=== PATIENT | female | born 1990 | race Caucasian/White ===

== ENCOUNTER 2025-01-11 19:31 | Inpatient (IN) | payer OTHER, SELFPAY ==
[2025-01-11 19:33] VITALS: BP 118/74; PULSE 102; RESP 15; TEMP 36.2; O2SAT 98
[2025-01-11 20:49] LABS: Absolute Lymphocyte Count 2.97 X10^3/uL (0.83-4.51); Absolute Neutrophil Count 5.1 X10^3/uL (2.0-7.7); Basophil# 0.03 X10^3/uL; Basophil% 0.3 % (0-1); Eosinophil# 0.44 X10^3/uL; Eosinophils% 4.8 % (0-5); Hematocrit 27.1 % (37-47); Hemoglobin 8.5 g/dL (12.0-15.0); Lymphocyte # 2.97 X10^3/ul (0.83-4.51); Lymphocyte % 32.6 % (19-41); Mean Corp Hgb Conc 31.4 g/dL (32-36); Mean Corpuscular Hgb 27.9 pg (27.0-32.0); Mean Corpuscular Volume 88.9 fL (81-99); Mean Platelet Vol. 7.7 fl (6.2-12.0); Monocyte# 0.46 X10^3/uL; NRBC Flagged by Analyzer 0 % (0-5); Neutrophil # 5.11 X10^3/uL (2.7-7.7); Neutrophil % 56.2 % (47-70); Platelet Count 475 K/mm3 (150-450); Red Blood Count 3.05 M/mm3 (4.2-5.4); White Blood Count 9.1 K/mm3 (4.4-11.0)
--- NOTE | 2025-01-11 21:05 | EX.ED.DYSGE1 ---
HPI History of Present Illness Chief Complaint: Abn Labs Narrative Narrative: 34-year-old female, G4, P2 at approximately 29 weeks gestation presents with abnormal labs. She has history of Crohn disease and takes Humira. She has an [employer] in [place] and plans on delivering at [facility]. She presents the direction of the gastroenterology CHARLIE who evaluated her today. Patient's states that with her Crohn disease, the [employer] recommended a bottle tester closer than the one they usually see at [facility]. Patient relates history that she has had bloody stool and cramping with bowel movements for the last few weeks. She was seen by gastroenterology today and was noted to have a hemoglobin of 8.6 with CRP of 103. Alk phos is elevated to 84 and it was recommended that she be admitted to the hospital for Solu-Medrol 125 mg every 8 hours. Patient denies any vaginal bleeding or cramping. She and her also relate history that it was suggested that with her Crohn disease and that she is on Humira that she be evaluated by highway worker. They had an appointment with someone at [facility] who advised them that there is no need for her to deliver at [place] and that she has not high risk and that she could deliver in [place]. She presents today for admission for IV steroids and control of her Crohn's flare. [facility] Medical History delivery delivered Abscess Blood transfusion, without reported diagnosis Home Medications ?Medication ?Instructions ?Recorded ?Last Taken ?Type adalimumab 40 mg/0.4 mL 40 mg subcut Q2W 01/11/25 Unknown History subcutaneous syringe kit (Humira(CF)) [id number] 18 mg-folic tab PO 01/11/25 Unknown History 400 mcg-vit K1 120 mcg-herbal tablet Allergy/AdvReac Type Severity Reaction Status Date / Time mesalamine AdvReac Intermediate Diarrhea Verified 01/11/25 14:15 Family History no significant family his Social History household members: spouse and children Smoking Status: Never smoker alcohol intake: never substance use type: does not use hubert/evangelical: Mennonite ROS ROS ED ROS Narrative Review of systems positive for blood in stool for a few weeks. Abdominal cramping only when having a bowel movement. No vaginal bleeding, no pelvic pain or vaginal cramping. No fevers or chills, no nausea or vomiting. EXAM Physical Exam Narrative Exam Narrative: Afebrile. Vital signs noted. Nontoxic-appearing. Mild tachycardia 102 bpm. Lungs clear to auscultation bilaterally. Abdomen is soft and nontender with gravid uterus. No pedal edema. Neurological examination nonfocal and normal lysing. Const Vital Signs: 01/11/25 19:33 01/11/25 20:18 01/11/25 21:32 Temperature 97.2 F L Temperature Source Temporal Pulse Rate 102 H Respiratory Rate 15 Respiratory Effort Normal Non-Labored Respiratory Pattern Normal Blood Pressure 118/74 113/77 Blood Pressure Mean 88 89 Pulse Ox 98 Oxygen Delivery Method Room Air MDM MDM MDM Narrative Medical decision making narrative: Differential diagnosis includes but not limited to Crohn's flare versus GI bleeding from AV malformation. I have low suspicion for diverticulitis based on her history and physical. I reviewed the gastroenterology note from today. I also reviewed the laboratory work from today as well. Today in review of her laboratory work she has a white count of 9.1, hemoglobin 8.5 down slightly from 8.6 this afternoon, platelet count elevated at 475. Electrolyte panel is significant for glucose of 119 with alk phos elevated at 271, lipase normal at 20. I reviewed her CRP and it is elevated at 203. She was administered Solu-Medrol 125 mg intravenously. heart rate 140 and obtained by RN. I discussed patient with Dr. Wheeler with [employer]. She will admit the patient as long as there is GI able to follow this weekend. As the patient is established with gastroenterology here as she was seen today and sent in by the nurse practitioner, I discussed patient with Dr. Galdamez who states that he will be able to see the patient tomorrow for consultation. He did not want any other medications added to treat her Crohn disease versus ulcerative colitis. I rediscussed the patient with Dr. Wheeler for admission to labor and delivery for monitoring. Disposition is admit in stable condition. History & Record Review Discussion w/independent historian: Patient and Family Additional record(s) reviewed:: Prior labs Lab Data Attestation: I reviewed the patient's lab results. Labs: Laboratory Results - last 24 hr 01/11/25 20:15 WBC 9.1 RBC 3.05 L Hgb 8.5 L Hct 27.1 L MCV 88.9 MCH 27.9 MCHC 31.4 L RDW Std Deviation 48.0 H RDW Coeff of Shira 15.0 H Plt Count 475 H MPV 7.7 Immature Gran % (Auto) 1.100 H Neut % (Auto) 56.2 Lymph % (Auto) 32.6 [place] % (Auto) 5.0 Eos % (Auto) 4.8 Baso % (Auto) 0.3 Absolute Neuts (auto) 5.1 Absolute Lymphs (auto) 2.97 Nucleated RBC % 0 Sodium 136 Potassium 3.7 Chloride 100 Carbon Dioxide 22.9 Anion Gap 13 BUN 6 Creatinine 0.49 L Est GFR (MDRD) Non-Af 127 BUN/Creatinine Ratio 12.2 Glucose 119 H Calcium 8.9 Total Bilirubin 0.44 AST 29 ALT 22 Alkaline Phosphatase 271 H Total Protein 8.2 Albumin 2.7 L Globulin 5.5 H Albumin/Globulin Ratio 0.5 L Lipase 20 Management Discussion w/another healthcare provider: Check Writing Machine Operator (Dr. Wheeler, [employer] and Dr. Galdamez, gastroenterology.) Discharge Plan Dx/Rx/DC Orders Clinical Impression: 29 weeks gestation of , Crohn's disease, and not yet delivered, Anemia Disposition Disposition: Acute Care [facility]
[2025-01-11 21:09] LABS: ALB/GLOB Ratio 0.5 RATIO (0.9-2.4); AST(SGOT) 29 U/L (<=31); Alanine Aminotransfer ALT/SGPT 22 U/L (<=34); Albumin, Serum 2.7 g/dL (3.5-5.0); Alkaline Phosphatase 271 U/L (35-104); Anion Gap 13 (5-15); BUN 6 mg/dL (4-19); BUN/Creat Ratio 12.2 RATIO (10-20); Calcium,Total 8.9 mg/dL (7.6-11.0); Carbon Dioxide 22.9 mmol/L (21.0-32.0); Chloride 100 mmol/L (98-108); Creatinine, Serum 0.49 mg/dL (0.70-1.20); EST Glomerular Filtration Rate 127 (>60); Globulin 5.5 g/dL (2.2-4.2); Glucose 119 mg/dL (70-99); Lipase 20 U/L (13-75); Potassium 3.7 mmol/L (3.3-5.1); Protein, Total 8.2 g/dL (5.9-8.4); Sodium Level 136 mmol/L (133-145); Total Bilirubin 0.44 mg/dL (0.00-1.30)
[2025-01-11] MEDS: MethylPREDNISolone 125 MG/2 ML Vial IV (21:16)
--- NOTE | 2025-01-11 21:27 | ED.RN ---
Obtained heart tones of 140/minute
[2025-01-11 21:32] VITALS: BP 113/77
[2025-01-11 22:39] VITALS: BP 113/77; PULSE 77; RESP 16; TEMP 36.2; O2SAT 98
[2025-01-11 22:54] VITALS: BP 121/68; PULSE 78; RESP 14; TEMP 36.9; O2SAT 96
[2025-01-12] VITALS (84 sets, daily range): BP systolic 105–140; BP diastolic 52–82; PULSE 72–108; RESP 14–17; TEMP 36.4–37.1; O2SAT 94–98
[2025-01-12] MEDS: MethylPREDNISolone 125 MG/2 ML Vial IV ×3 (05:32→21:41)
--- NOTE | 2025-01-12 09:37 | PCM.HP.OB ---
HPI - General HPI Narrative FABRICIO HERNANDES, is a 34 y/o @ 29 weeks who presented to [facility] ER for an acute GI bleed secondary to Crohn's disease flair. She saw Yoanna Tejeda CNP in Dr. Fong's office. The patient denies loss of fluid, vaginal bleeding, or decreased movement. She was started on solumendrol 125 mg IV q 8 hrs by her and she states that since the first infusion her symptoms have started to clear up. She states that her bowel movements are not as bloody and her vasculitis cleared up. She just recently found out that she passed her glucola test and that her thyroid test was normal. She denies shortness of breath or chest pain. The information from her office visit yesterday with Yoanna Tejeda is as follows: - initial diagnosis was UC post colonoscopy at [place] August 2023 with diarrhea, mucus, bleeding - started on Mesalamine labs at that time revealed a CRP of 18.74 and ESR labs at that time revealed a CRP of 18.74 and ESR 95 she was also anemic with a hemoglobin of 9.7. Imaging and a colonoscopy revealed mild pancolitis confirmed by bowel biopsy to be chronic active colitis with varying degrees of severity throughout the colon. She was treated with prednisone and mesalamine which initially alleviated her symptoms but her condition worsen when the prednisone was tapered. 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 A positive C. difficile test led to treatment with p.o. vancomycin however she was toxin negative. In February 2024 had a perineal necrotizing soft tissue infection and per the op note this was actually an anal fistula or abscess which gave concern that her IBD was actually Crohn's and not an ulcerative colitis. - abscess and put in 3 drains - drains came out end of March, 1 of 3 abscess healed - crohn's diagnosed about 18 months ago - she is experiencing rectal bleeding that began a few weeks ago During an outpatient GI visit February 2024 patient had reported resolution of symptoms and was not having any diarrhea or rectal bleeding. She was not on any steroids at that time. CRP was normal at 0.58 but her fecal calprotectin was elevated to 974. Her CBC also showed microcytic hyperchromic anemia consistent with ADRIEL with a hemoglobin of 6.1 and received a transfusion. She had a colonoscopy performed April 2024 which showed inflammation in the entire colon worst in the rectosigmoid, along with involvement of the terminal ileum. Biopsies showed chronic active enteritis in the TI and active chronic colitis in all segments of the colon. During outpatient GI visit 05/24/2024 she was having bloody diarrhea along with urgency and started on 2-month prednisone taper taper (starting at 40 mg) with improvement of symptoms and decision was made to start Humira. She is currently getting it through patient assistance program from the [employer] as she has community insurance through the [employer] and due to several delays in initiating biologic therapy she was off of prednisone for 1 month before receiving her first induction dose of Humira on 08/30/2024 - started Humira August 2024 - she saw Dr. Mann during admission September 2024 She was admitted to [facility] on 09/27/2024 4 para 2 at 14 weeks gestation with a Crohn's flare presenting with nausea, vomiting and hematochezia. C. difficile and stool pathogen panels were unremarkable GI was consulted she received IV methylprednisone 20 mg every 8 hours 09/27 through 09/30 and transition to p.o. prednisone steroid taper on 10/01/2024. Throughout admission, patient's hematochezia and diarrheal symptoms greatly improved. On 09/28/2024 an OB ultrasound was performed which confirmed stable she was discharged home on an oral steroid taper with plans to resume Humira every 2 weeks. Her prednisone taper started at 40 mg daily for 1 week and then decrease by 5 mg every week. Her reports her Humira level during admission was around 6. Without antibodies. Completing prednisone taper early November. She presents today with complaints of bloody stools, loss of appetite, 20 pound weight loss, intermittent emesis with an overall improvement in diarrhea. 5 - she is now having blood in stool, loss of appetite - weight loss - diarrhea - emesis - weight is down 20lbs since beginning of - since starting Humira she has noted improvement in diarrhea - since starting Humira she reports having a gush of mucus, followed by stool - states bleeding now for a few weeks - reports having labs 1-2 weeks ago - HGB 8.6, was taking Ferrous sulfate 65mg QOD and now she is now taking Herbal Fe 325mg 1 BID and is supposed to be taking 2 BID - now only going 2-3x during the day and once at HS, this is an improvement from multiple stools daily before starting Humira - reports she was last on prednisone September - sore in mouth and throat, diarrhea, vomiting - states this flare was different and felt worse than she does now - she i snow seeing a high risk clinic at [place] - and vitamin C - 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 possibly secondary to - seen in the office today with her - states their doctor told them it was okay for her to get on prednisone - brother business berry picker, 2x a day - leave a [phone] - Community phone patient to call with this number [facility] Medical History delivery delivered Abscess Blood transfusion, without reported diagnosis Home Medications ?Medication ?Instructions ?Recorded ?Last Taken ?Type adalimumab 40 mg/0.4 mL 40 mg subcut Q2W 01/11/25 01/08/25 History subcutaneous syringe kit (Humira(CF)) [id number] 18 mg-folic 1 tab PO DAILY 01/11/25 Unknown History 400 mcg-vit K1 120 mcg-herbal tablet Allergy/AdvReac Type Severity Reaction Status Date / Time mesalamine AdvReac Intermediate Diarrhea Verified 01/11/25 14:15 Family History no significant family his Social History household members: spouse and children Smoking Status: Never smoker alcohol intake: never substance use type: does not use hubert/yarsanism: Mennonite NST FHR Rate Baby A Baseline: 140 Variability:: Moderate Accelerations:: 15 x 15 Decelerations:: None NST Reactive:: Yes FHR Category:: Category I Uterine Activity:: no contractions ROS Constitutional Constitutional: Denies change in weight, fatigue, fever(s), headache(s), poor appetite or weakness Eyes Eyes: Denies blurry vision, change in vision, seeing flashes or spots in vision ENT HEENT: Denies dizziness, headache(s), loss taste/smell or sore throat Cardiovascular Cardiovascular: Denies chest pain, dizziness, dyspnea, irregular heart rhythm, leg edema, palpitations, rapid heart rate or vomiting Respiratory/Chest Respiratory/Chest: Denies chest tightness, cough, dyspnea or breast pain Gastrointestinal Gastrointestinal: Denies abdominal pain, anorexia, constipation, cramping, diarrhea, hemorrhoids, vomiting or weight changes Genitourinary Genitourinary: Denies dysuria, flank pain, genital lesions, genital pain, urinary frequency or urinary urgency Musculoskeletal Musculoskeletal: Denies back pain, difficulty walking, joint pain, limited range of motion, muscle cramps or numbness Integumentary Integumentary: Denies lesions or unusual bruising Neurologic Neurologic: Denies abnormal movements, abnormal speech, dizziness, numbness, seizure-like activity or syncope Psychiatric Psychiatric: Denies anxiety, behavioral changes, change in appetite, change in libido, cognitive impairment, confusion, depression, difficulty concentrating, hallucinations or suicidal thoughts Endocrine Endocrinology: Denies excessive sweating, polydipsia or polyuria Hematologic/Lymphatic Hematologic/Lymphatic: Denies easy bleeding, easy bruising or lymphadenopathy Allergic/Immunologic Allergic/Immunologic: Denies itchy eyes, lip swelling, seasonal rhinorrhea, rhinitis, throat swelling, tongue swelling, eczemia, wheezing or asthma Vital Signs Vital Signs Vital Signs: 01/11/25 19:33 01/11/25 20:18 01/11/25 21:32 Temperature 97.2 F L Temperature Source Temporal Pulse Rate 102 H Respiratory Rate 15 Respiratory Effort Normal Non-Labored Respiratory Pattern Normal Blood Pressure 118/74 113/77 Blood Pressure Mean 88 89 BP Systolic BP Diastolic Pulse Ox 98 Oxygen Delivery Method Room Air 01/11/25 22:39 01/11/25 22:54 01/11/25 22:54 Temperature 97.2 F L Temperature Source Temporal Pulse Rate 77 Respiratory Rate 16 Respiratory Effort Respiratory Pattern Blood Pressure 113/77 121/68 H Blood Pressure Mean 89 BP Systolic 121 BP Diastolic 68 Pulse Ox 98 Oxygen Delivery Method 01/11/25 22:54 01/11/25 22:54 01/11/25 22:54 Temperature Temperature Source Pulse Rate 78 Respiratory Rate 14 Respiratory Effort Respiratory Pattern Blood Pressure Blood Pressure Mean BP Systolic BP Diastolic Pulse Ox 96 Oxygen Delivery Method 01/11/25 22:54 01/12/25 03:06 01/12/25 03:06 Temperature 98.4 F Temperature Source Pulse Rate 78 Respiratory Rate Respiratory Effort Respiratory Pattern Blood Pressure 115/62 Blood Pressure Mean BP Systolic 115 BP Diastolic 62 Pulse Ox Oxygen Delivery Method 01/12/25 03:06 01/12/25 07:48 01/12/25 07:48 Temperature Temperature Source Pulse Rate 78 Respiratory Rate 14 Respiratory Effort Respiratory Pattern Blood Pressure 117/68 Blood Pressure Mean BP Systolic 117 BP Diastolic 68 Pulse Ox Oxygen Delivery Method 01/12/25 07:48 01/12/25 07:49 01/12/25 07:49 Temperature Temperature Source Oral Pulse Rate Respiratory Rate 16 Respiratory Effort Respiratory Pattern Blood Pressure Blood Pressure Mean BP Systolic BP Diastolic Pulse Ox 96 Oxygen Delivery Method 01/12/25 07:49 Temperature 97.6 F L Temperature Source Pulse Rate Respiratory Rate Respiratory Effort Respiratory Pattern Blood Pressure Blood Pressure Mean BP Systolic BP Diastolic Pulse Ox Oxygen Delivery Method Physical Exam Const alert, oriented x3, no apparent distress and healthy appearing General Appearance: cooperative; Negative for anxious HEENT normocephalic Face and Sinus: normal facial exam Eyes EOMs intact bilaterally and no scleral icterus General Eye: normal appearance of both eyes Neck full ROM and supple Lymph Lymphatic: no lymphadenopathy noted Chest Chest: abnormal inspection of the chest Resp normal respiratory effort Effort and Inspection: able to speak in complete sentences Cardio regular rate GI soft to palpation and non-tender Inspection: gravid Palpation: soft; Negative for tender Back/Spine no CVA tenderness Extremity normal to inspection, full ROM and no clubbing, cyanosis or edema General Extremity: Negative for calf tenderness or edema Skin Lesions: no lesions Rashes: no rashes Psych mental status grossly normal Labs Labs Labs: Hct 27.1 % (37-47) L Hgb 8.5 g/dL (12.0-15.0) L Assessment & Plan (1) Acute GI bleeding: (2) 29 weeks gestation of : (3) Anemia: (4) and not yet delivered: (5) Crohn's disease: (6) Vasculitis: PLAN: Plan plan this am after talking with Dr. fong is to order a CMP, ESR, Retic count, Ferritin, Iron, LDH, Transferrin, amylase, and lipase. I will also be ordering a type and cross and transfusing 1 unit due to tachycardia in the ER with standing and drop in bp. -ok to order regular diet -repeat cbc after transfusion and if stable will consider transfer to the med surg floor with q shift NSTs. For now will keep on montor Charges/Coding Visit Charges Inpatient E&M: 07252 Init Hosp L3
[2025-01-12 10:38] LABS: Absolute Lymphocyte Count 1.92 X10^3/uL (0.83-4.51); Absolute Neutrophil Count 6.9 X10^3/uL (2.0-7.7); Basophil# 0.01 X10^3/uL; Basophil% 0.1 % (0-1); Hematocrit 27.1 % (37-47); Hemoglobin 8.4 g/dL (12.0-15.0); Lymphocyte # 1.92 X10^3/ul (0.83-4.51); Lymphocyte % 21.5 % (19-41); Mean Corpuscular Hgb 27.5 pg (27.0-32.0); Mean Corpuscular Volume 88.9 fL (81-99); Monocyte# 0.05 X10^3/uL; Monocyte% 0.6 % (0-10); NRBC Flagged by Analyzer 0 % (0-5); Neutrophil # 6.85 X10^3/uL (2.7-7.7); Neutrophil % 76.5 % (47-70); Platelet Count 399 K/mm3 (150-450); RBC Distribution Width CV 14.8 % (11.6-14.6); RBC Distribution Width SD 47.1 fl (35.1-43.9); RET-HE 30.1 pg (30-35); Red Blood Count 3.05 M/mm3 (4.2-5.4); Reticulocyte Count 2.48 % (0.5-1.5)
[2025-01-12 11:23] LABS: Erythrocyte Sedimentation Rate 44 mm/hr (0-30)
[2025-01-12 11:43] LABS: ALB/GLOB Ratio 0.5 RATIO (0.9-2.4); AST(SGOT) 20 U/L (<=31); Alanine Aminotransfer ALT/SGPT 19 U/L (<=34); Albumin, Serum 2.7 g/dL (3.5-5.0); Alkaline Phosphatase 259 U/L (35-104); Anion Gap 13 (5-15); BUN 5 mg/dL (4-19); Carbon Dioxide 21.4 mmol/L (21.0-32.0); Chloride 99 mmol/L (98-108); Creatinine, Serum 0.42 mg/dL (0.70-1.20); EST Glomerular Filtration Rate 133 (>60); Ferritin 178 ng/mL (22-378); Globulin 5.4 g/dL (2.2-4.2); Glucose 123 mg/dL (70-99); Iron Binding Capacity,Total 337 ug/dL (250-450); Potassium 4.1 mmol/L (3.3-5.1); Protein, Total 8.1 g/dL (5.9-8.4); Sodium Level 133 mmol/L (133-145); Total Bilirubin 0.33 mg/dL (0.00-1.30)
[2025-01-12 12:00] LABS: Amylase 18 U/L (28-100); Iron 54 ug/dL (50-170); Iron Binding Capacity,Unsat 283 ug/dL (228-428); Lipase 16 U/L (13-75)
[2025-01-12] MEDS: DiphenhydrAMINE 50 MG/ML Syringe IV (14:15)
[2025-01-12] MEDS: Acetaminophen 500 MG Tablet 1000 MG PO (14:15)
[2025-01-12] MEDS: 0.9% Saline Lock 10 ML Syringe IV ×2 (14:16→21:41)
--- NOTE | 2025-01-12 18:57 | EX.PCM.CON.G ---
HPI Consult Data Date of Consult: 01/12/25 HPI Narrative Reason for Consultation: Crohn's flare HPI Narrative: 34-year-old female, G4, P2 at approximately 29 weeks gestation presents with abnormal labs. She has history of Crohn disease and takes Humira. She has an [employer] in [place] and plans on delivering at [facility]. She presents the direction of the gastroenterology CHARLIE Yoanna Tejeda who evaluated her yesterday. Patient's states that with her Crohn disease, the [employer] recommended a chief of staff closer than the one they usually see at [facility]. Patient relates history that she has had bloody stool and cramping with bowel movements for the last few weeks. She was seen by gastroenterology yesterday and was noted to have a hemoglobin of 8.6 with CRP of 103. Alk phos is elevated to 84 and it was recommended that she be admitted to the hospital for Solu-Medrol 125 mg every 8 hours. Patient denies any vaginal bleeding or cramping. She and her also relate history that it was suggested that with her Crohn disease and that she is on Humira that she be evaluated by high school music teacher. They had an appointment with someone at [facility] who advised them that there is no need for her to deliver at [place] and that she has not high risk and that she could deliver in [place]. She presents today for admission for IV steroids and control of her Crohn's flare. [facility] Medical History delivery delivered Abscess Blood transfusion, without reported diagnosis Home Medications ?Medication ?Instructions ?Recorded ?Last Taken ?Type adalimumab 40 mg/0.4 mL 40 mg subcut Q2W 01/11/25 01/08/25 History subcutaneous syringe kit (Humira(CF)) [id number] 18 mg-folic 1 tab PO DAILY 01/11/25 Unknown History 400 mcg-vit K1 120 mcg-herbal tablet Allergy/AdvReac Type Severity Reaction Status Date / Time mesalamine AdvReac Intermediate Diarrhea Verified 01/11/25 14:15 Family History no significant family his Social History household members: spouse and children Smoking Status: Never smoker alcohol intake: never substance use type: does not use hubert/confucianism: Mennonite ROS Constitutional Constitutional: Denies fatigue, fever(s), poor appetite, weight gain or weight loss Gastrointestinal Gastrointestinal: Denies belching, bloating, change in bowel habits, change in stool character, chewing difficulty, coffee ground emesis, constipation, cramping, diarrhea, dyspepsia, dysphagia, early satiety, excessive flatus, fecal incontinence, heartburn, hematemesis, hematochezia, hemorrhoids, loose stools, melena, nausea, odynophagia, rectal bleeding, tenesmus, vomiting or weight changes Physical Exam Const alert, oriented x3, no apparent distress and healthy appearing General Appearance: cooperative; Negative for anxious HEENT normocephalic Face and Sinus: normal facial exam Eyes EOMs intact bilaterally and no scleral icterus General Eye: normal appearance of both eyes Neck full ROM and supple Lymph Lymphatic: no lymphadenopathy noted Chest Chest: abnormal inspection of the chest Resp normal respiratory effort Effort and Inspection: able to speak in complete sentences Cardio regular rate GI soft to palpation and non-tender Inspection: gravid Palpation: soft; Negative for tender Back/Spine no CVA tenderness Extremity normal to inspection, full ROM and no clubbing, cyanosis or edema General Extremity: Negative for calf tenderness or edema Skin Lesions: no lesions Rashes: no rashes Psych mental status grossly normal Lab / Micro Data 01/12/25 10:15 01/12/25 10:15 Labs: Laboratory Results - last 24 hr 01/11/25 20:15: WBC 9.1, RBC 3.05 L, Hgb 8.5 L, Hct 27.1 L, MCV 88.9, MCH 27.9, MCHC 31.4 L, RDW Std Deviation 48.0 H, RDW Coeff of Shira 15.0 H, Plt Count 475 H, MPV 7.7, Immature Gran % (Auto) 1.100 H, Neut % (Auto) 56.2, Lymph % (Auto) 32.6, [place] % (Auto) 5.0, Eos % (Auto) 4.8, Baso % (Auto) 0.3, Absolute Neuts (auto) 5.1, Absolute Lymphs (auto) 2.97, Nucleated RBC % 0, Sodium 136, Potassium 3.7, Chloride 100, Carbon Dioxide 22.9, Anion Gap 13, BUN 6, Creatinine 0.49 L, Est GFR (MDRD) Non-Af 127, BUN/Creatinine Ratio 12.2, Glucose 119 H, Calcium 8.9, Total Bilirubin 0.44, AST 29, ALT 22, Alkaline Phosphatase 271 H, Total Protein 8.2, Albumin 2.7 L, Globulin 5.5 H, Albumin/Globulin Ratio 0.5 L, Lipase 20 04/26/25 10:15: WBC 9.0, RBC 3.05 L, Hgb 8.4 L, Hct 27.1 L, MCV 88.9, MCH 27.5, MCHC 31.0 L, RDW Std Deviation 47.1 H, RDW Coeff of Shira 14.8 H, Plt Count 399, MPV 8.0, Immature Gran % (Auto) 1.300 H, Neut % (Auto) 76.5 H, Lymph % (Auto) 21.5, [place] % (Auto) 0.6, Eos % (Auto) 0.0, Baso % (Auto) 0.1, Absolute Neuts (auto) 6.9, Absolute Lymphs (auto) 1.92, Nucleated RBC % 0, ESR 44 H, Retic Count 2.48 H, Immature Retic Fraction 22.90 H, Retic Hgb Equivalent 30.1, Sodium 133, Potassium 4.1, Chloride 99, Carbon Dioxide 21.4, Anion Gap 13, BUN 5, Creatinine 0.42 L, Est GFR (MDRD) Non-Af 133, BUN/Creatinine Ratio 11.0, Glucose 123 H, Calcium 9.0, Iron 54, TIBC 337, Iron Saturation 16.0, Unsaturated IBC 283, Ferritin 178, Total Bilirubin 0.33, AST 20, ALT 19, Alkaline Phosphatase 259 H, C-React Prot Ext Range 81.50 H, Total Protein 8.1, Albumin 2.7 L, Globulin 5.4 H, Albumin/Globulin Ratio 0.5 L, Amylase 18 L, Lipase 16, Blood Type AB POSITIVE, Antibody Screen NEGATIVE, Crossmatch See Detail Assessment & Plan Assessment/Plan (1) Acute GI bleeding: (2) 29 weeks gestation of : (3) Crohn's disease: PLAN: 29 weeks 4 and para 2 at 29 weeks gestational age who presented to [facility] due lower GI bleeding secondary to a suspected flare of Crohn's disease. The patient reports having acute onset of severe abdominal pain approximately 2 hours prior to admission. Her vitals were stable in the hospital so a CT scan abdomen pelvis was not ordered. She recently completed a prednisone taper in early November 2024 after a hospitalization for Crohn's flare in September. She received her first Humira dose on 08/30/2024. As per the patient's who is at the bedside her Humira level was 6.8 approximately 4 weeks after her introduction to Humira. Current labs reveal microcytic anemia with hemoglobin of 8.6, with c/o bleeding x 3 weeks. Her rectal exam yesterday revealed active perianal disease with 2 open fistula tracts with minimal clear drainage. Currently ,she denies any abdominal pain, cramping or vaginal bleeding. In the ED yesterday she was discovered to have a severely elevated CRP at 101. Her CRP is down to 81. Her ESR was 66 and is down to 44. Her hemoglobin is 8.4 with a MCV of 90, white blood cell count of 9 and a platelet count of 399 which is down from 475. Currently she is on methylprednisolone 125 mg IV every 8 hours. Her only drug allergies are mesalamine which causes diarrhea and her. She does not smoke cigarettes. Her only surgical history includes 2 other C-sections. Generally she looks well and nontoxic. We have not done any imaging studies. I went over in detail the potential complications of IBD during such as delivery, low birthweight or increased risk of infection. Differential diagnosis: Flare of Crohn's disease, infectious colitis Plan: - Treatment: Continue methylprednisolone 125 mg IV daily hours - Check acute hepatitis profile, KERI, ANCA, food allergies, repeat daily ESR, CRP, stool test as she does have a history of being colonized by C. difficile and CBC along with CMP. Watch for hypo or hyperkalemia secondary to steroids. Once patient has had a 2/3-3/4 decrease in her CRP and ESR, she has no more diarrhea, she has normal bleeding and she is started on oral steroids without any reoccurrence then it would be safe for her to go home. - : Currently being managed by OB and patient is doing well as is the baby. Charges/Coding Visit Charges Inpatient E&M: 11601 Init Hosp L3
[2025-01-12 20:33] LABS: Absolute Lymphocyte Count 2.31 X10^3/uL (0.83-4.51); Basophil# 0.01 X10^3/uL; Basophil% 0.1 % (0-1); Hematocrit 27.1 % (37-47); Hemoglobin 8.6 g/dL (12.0-15.0); Lymphocyte # 2.31 X10^3/ul (0.83-4.51); Lymphocyte % 21.3 % (19-41); Mean Corp Hgb Conc 31.7 g/dL (32-36); Mean Corpuscular Hgb 28.6 pg (27.0-32.0); Mean Platelet Vol. 8.1 fl (6.2-12.0); Monocyte# 0.33 X10^3/uL; NRBC Flagged by Analyzer 0 % (0-5); Neutrophil # 8.01 X10^3/uL (2.7-7.7); Neutrophil % 74.1 % (47-70); Platelet Count 442 K/mm3 (150-450); RBC Distribution Width CV 14.6 % (11.6-14.6); RBC Distribution Width SD 47.3 fl (35.1-43.9); Red Blood Count 3.01 M/mm3 (4.2-5.4); White Blood Count 10.8 K/mm3 (4.4-11.0)
[2025-01-12] MEDS: 0.9% Normal Saline (500mL Bag) 500 ML 999 ML IV (23:16)
[2025-01-13] VITALS (53 sets, daily range): BP systolic 113–125; BP diastolic 56–69; PULSE 72–178; RESP 14–19; TEMP 36.4–36.8; O2SAT 93–98
[2025-01-13] MEDS: 0.9% Saline Lock 10 ML Syringe IV ×4 (03:20→21:32)
[2025-01-13] MEDS: MethylPREDNISolone 125 MG/2 ML Vial IV ×3 (06:14→21:32)
[2025-01-13 06:38] LABS: Absolute Lymphocyte Count 2.48 X10^3/uL (0.83-4.51); Absolute Neutrophil Count 7.3 X10^3/uL (2.0-7.7); Basophil# 0.01 X10^3/uL; Basophil% 0.1 % (0-1); Hematocrit 29.5 % (37-47); Hemoglobin 9.4 g/dL (12.0-15.0); Lymphocyte # 2.48 X10^3/ul (0.83-4.51); Mean Corp Hgb Conc 31.9 g/dL (32-36); Mean Corpuscular Hgb 29.2 pg (27.0-32.0); Mean Corpuscular Volume 91.6 fL (81-99); Mean Platelet Vol. 7.7 fl (6.2-12.0); Monocyte# 0.35 X10^3/uL; Monocyte% 3.4 % (0-10); NRBC Flagged by Analyzer 0 % (0-5); Neutrophil # 7.27 X10^3/uL (2.7-7.7); Neutrophil % 70.2 % (47-70); Platelet Count 401 K/mm3 (150-450); RBC Distribution Width CV 14.8 % (11.6-14.6); RBC Distribution Width SD 48.4 fl (35.1-43.9); Red Blood Count 3.22 M/mm3 (4.2-5.4); White Blood Count 10.4 K/mm3 (4.4-11.0)
[2025-01-13 07:05] LABS: LDH 134 U/L (84-246)
--- NOTE | 2025-01-13 10:51 | PN.OBGYN_ITS ---
Subjective Subjective patient is laying in bed and appears more energetic than yesterday. She states that she is starting to feel more energy. No loss of fluid, vaginal bleeding, or decreased movement. She was very happy with the consultation with Dr. Galdamez yesterday and they feel they are well informed and a plan is in place. No loss of fluid, vaginal bleeding, or decreased movement. She states she only sees blood from the rectum when wiping herself. No diarrhea. Objective Data Objective Data Vital Signs: Vital Signs Temp Pulse Resp BP Pulse Ox O2 Del Method 97.6 F L 90 16 117/69 96 Room Air 01/13/25 08:08 01/13/25 08:08 01/13/25 08:08 01/13/25 08:08 01/13/25 08:08 01/13/25 03:39 Oxygen Delivery Method Room Air Intake & Output: Intake and Output for Last 24 Hours 01/11/25 01/12/25 01/13/25 23:59 23:59 23:59 Intake Total 327.3 / 327.3 854.7 / 854.7 Balance 327.3 / 327.3 854.7 / 854.7 Lab / Micro Data 01/13/25 06:10 01/12/25 10:15 Labs: Laboratory Results - last 24 hr 01/12/25 10:15: WBC 9.0, RBC 3.05 L, Hgb 8.4 L, Hct 27.1 L, MCV 88.9, MCH 27.5, MCHC 31.0 L, RDW Std Deviation 47.1 H, RDW Coeff of Shira 14.8 H, Plt Count 399, MPV 8.0, Immature Gran % (Auto) 1.300 H, Neut % (Auto) 76.5 H, Lymph % (Auto) 21.5, [place] % (Auto) 0.6, Eos % (Auto) 0.0, Baso % (Auto) 0.1, Absolute Neuts (auto) 6.9, Absolute Lymphs (auto) 1.92, Nucleated RBC % 0, ESR 44 H, Retic Count 2.48 H, Immature Retic Fraction 22.90 H, Retic Hgb Equivalent 30.1, Sodium 133, Potassium 4.1, Chloride 99, Carbon Dioxide 21.4, Anion Gap 13, BUN 5, C reatinine 0.42 L, Est GFR (MDRD) Non-Af 133, BUN/Creatinine Ratio 11.0, Glucose 123 H, Calcium 9.0, Iron 54, TIBC 337, Iron Saturation 16.0, Unsaturated IBC 283, Ferritin 178, Total Bilirubin 0.33, AST 20, ALT 19, Alkaline Phosphatase 259 H, C-React Prot Ext Range 81.50 H, Total Protein 8.1, Albumin 2.7 L, G lobulin 5.4 H, Albumin/Globulin Ratio 0.5 L, Amylase 18 L, Lipase 16, Blood Type AB POSITIVE, Antibody Screen NEGATIVE, Crossmatch See Detail 01/12/25 10:15: Crossmatch See Detail 01/12/25 20:00: WBC 10.8, RBC 3.01 L, Hgb 8.6 L, Hct 27.1 L, MCV 90.0, MCH 28.6, MCHC 31.7 L, RDW Std Deviation 47.3 H, RDW Coeff of Shira 14.6, Plt Count 442, MPV 8.1, Immature Gran % (Auto) 1.500 H, Neut % (Auto) 74.1 H, Lymph % (Auto) 21.3, [place] % (Auto) 3.0, Eos % (Auto) 0.0, Baso % (Auto) 0.1, Absolute Neuts (auto) 8.0 H, Absolute Lymphs (auto) 2.31, Nucleated RBC % 0, Scl-70 Scleroderma Ab TNP 01/13/25 06:10: WBC 10.4, RBC 3.22 L, Hgb 9.4 L, Hct 29.5 L, MCV 91.6, MCH 29.2, MCHC 31.9 L, RDW Std Deviation 48.4 H, RDW Coeff of Shira 14.8 H, Plt Count 401, MPV 7.7, Immature Gran % (Auto) 2.300 H, Neut % (Auto) 70.2 H, Lymph % (Auto) 24.0, [place] % (Auto) 3.4, Eos % (Auto) 0.0, Baso % (Auto) 0.1, Absolute Neuts (auto) 7.3, Absolute Lymphs (auto) 2.48, Nucleated RBC % 0, Lactate Dehydrogenase 134 Micro: Microbiology 01/12/25 21:25 Stool Stool Lactoferrin - Final 01/12/25 21:25 Stool Enteric Bacteriology - Final 01/12/25 21:25 Stool Clostridioides difficile (PCR) - Final ROS Constitutional Constitutional: Denies chills, fatigue, fever(s), poor appetite or weakness Eyes Eyes: Denies blurry vision, change in vision, seeing flashes or spots in vision ENT HEENT: Denies dizziness, headache(s), loss taste/smell or sore throat Cardiovascular Cardiovascular: Denies chest pain, dizziness, dyspnea, irregular heart rhythm, palpitations or rapid heart rate Respiratory/Chest Respiratory/Chest: Denies chest tightness, cough, dyspnea or breast pain Gastrointestinal Gastrointestinal: Denies abdominal pain, constipation or vomiting Genitourinary Genitourinary: Denies dysuria or flank pain Musculoskeletal Musculoskeletal: Denies difficulty walking, joint pain, limited range of motion or numbness Neurologic Neurologic: Denies abnormal movements, abnormal speech, dizziness, numbness, seizure-like activity or syncope Psychiatric Psychiatric: Denies anxiety, behavioral changes, change in appetite, confusion, depression or suicidal thoughts Physical Exam Const alert, oriented x3 and no apparent distress General Appearance: cooperative and comfortable HEENT normocephalic Resp normal respiratory effort Cardio regular rate GI Palpation: soft no CVA tenderness Back/Spine no CVA tenderness and thoraco-lumbar ROM normal Extremity normal to inspection, no clubbing, cyanosis or edema, no calf tenderness and no pedal edema General Extremity: edema bilateral (trace ) Psych mental status grossly normal, thought process normal, cooperative, affect normal, speech normal, activity/motor behavior normal, denies homicidal ideation and denies suicidal ideation NST FHR Rate Baby A Baseline: 145 Variability:: Moderate Accelerations:: 15 x 15 Decelerations:: None NST Reactive:: Yes FHR Category:: Category I Uterine Activity:: no contractions Assessment & Plan (1) Acute GI bleeding: (2) 29 weeks gestation of : (3) Anemia: (4) and not yet delivered: (5) Crohn's disease: (6) Vasculitis: PLAN: Plan hg up to 9.4 today after 2 units of blood. will rpt cbc tomorrow. labs from GI are pending. continue steroids SCD's ordered when in bed. Encouraged oob amb. today along with more PO hydration. Charges/Coding Visit Charges Inpatient E&M: 80625 Subs Hosp L3 Multi Select Codes Urinary/Genital Urinary/Genital CPT Codes: 10832-08 non-stress test Interp
[2025-01-14 01:38] VITALS: BP 115/56; PULSE 80; RESP 16; TEMP 36.6; O2SAT 96
[2025-01-14 05:14] VITALS: BP 102/57; PULSE 68; RESP 16; TEMP 36.6; O2SAT 96
[2025-01-14] MEDS: 0.9% Saline Lock 10 ML Syringe IV ×2 (05:16→13:07)
[2025-01-14] MEDS: MethylPREDNISolone 125 MG/2 ML Vial IV ×2 (05:16→13:07)
[2025-01-14 05:28] LABS: Absolute Lymphocyte Count 2.29 X10^3/uL (0.83-4.51); Absolute Neutrophil Count 8.5 X10^3/uL (2.0-7.7); Basophil# 0.03 X10^3/uL; Basophil% 0.3 % (0-1); Hematocrit 28.6 % (37-47); Hemoglobin 8.9 g/dL (12.0-15.0); Lymphocyte # 2.29 X10^3/ul (0.83-4.51); Lymphocyte % 20.1 % (19-41); Mean Corp Hgb Conc 31.1 g/dL (32-36); Mean Corpuscular Hgb 28.4 pg (27.0-32.0); Mean Corpuscular Volume 91.4 fL (81-99); Mean Platelet Vol. 7.8 fl (6.2-12.0); Monocyte# 0.42 X10^3/uL; Monocyte% 3.7 % (0-10); NRBC Flagged by Analyzer 0 % (0-5); Neutrophil # 8.46 X10^3/uL (2.7-7.7); Neutrophil % 74.3 % (47-70); Platelet Count 364 K/mm3 (150-450); RBC Distribution Width SD 49.1 fl (35.1-43.9); Red Blood Count 3.13 M/mm3 (4.2-5.4); White Blood Count 11.4 K/mm3 (4.4-11.0)
[2025-01-14 07:50] VITALS: BP 106/63; PULSE 67; RESP 16; TEMP 36.6; O2SAT 97
--- NOTE | 2025-01-14 08:04 | PN.OBGYN_ITS ---
Subjective Subjective patient is laying in bed. No loss of fluid, vaginal bleeding, or decreased movement. She states she only sees blood from the rectum when wiping herself. No diarrhea, same as yesterday. No shortness of breath, chest pain, or rapid heart rate. Nurse reports that she heard a murmur yesterday though. Objective Data Objective Data Vital Signs: Vital Signs Temp Pulse Resp BP Pulse Ox O2 Del Method 97.8 F 67 16 106/63 97 Room Air 01/14/25 05:14 01/14/25 07:50 01/14/25 05:14 01/14/25 07:50 01/14/25 07:50 01/13/25 03:39 Oxygen Delivery Method Room Air Intake & Output: Intake and Output for Last 24 Hours 01/12/25 01/13/25 01/14/25 23:59 23:59 23:59 Intake Total 327.3 / 327.3 854.7 / 854.7 Output Total Balance 327.3 / 327.3 854.7 / 854.7 -1 / -1 Lab / Micro Data 01/14/25 05:20 01/12/25 10:15 Labs: Laboratory Results - last 24 hr 01/12/25 10:15: Crossmatch See Detail 01/14/25 05:20: WBC 11.4 H, RBC 3.13 L, Hgb 8.9 L, Hct 28.6 L, MCV 91.4, MCH 28.4, MCHC 31.1 L, RDW Std Deviation 49.1 H, RDW Coeff of Shira 15.0 H, Plt Count 364, MPV 7.8, Immature Gran % (Auto) 1.600 H, Neut % (Auto) 74.3 H, Lymph % (Auto) 20.1, [place] % (Auto) 3.7, Eos % (Auto) 0.0, Baso % (Auto) 0.3, Absolute Neuts (auto) 8.5 H, Absolute Lymphs (auto) 2.29, Nucleated RBC % 0 Micro: Microbiology 01/12/25 21:25 Stool Stool Lactoferrin - Final 01/12/25 21:25 Stool Enteric Bacteriology - Final 01/12/25 21:25 Stool Clostridioides difficile (PCR) - Final ROS Constitutional Constitutional: Denies chills, fatigue, fever(s), poor appetite or weakness Eyes Eyes: Denies blurry vision, change in vision, seeing flashes or spots in vision ENT HEENT: Denies dizziness, headache(s), loss taste/smell or sore throat Cardiovascular Cardiovascular: Denies chest pain, dizziness, dyspnea, irregular heart rhythm, palpitations or rapid heart rate Respiratory/Chest Respiratory/Chest: Denies chest tightness, cough, dyspnea or breast pain Gastrointestinal Gastrointestinal: Denies abdominal pain, constipation or vomiting Genitourinary Genitourinary: Denies dysuria or flank pain Musculoskeletal Musculoskeletal: Denies difficulty walking, joint pain, limited range of motion or numbness Neurologic Neurologic: Denies abnormal movements, abnormal speech, dizziness, numbness, seizure-like activity or syncope Psychiatric Psychiatric: Denies anxiety, behavioral changes, change in appetite, confusion, depression or suicidal thoughts Physical Exam Const alert, oriented x3 and no apparent distress General Appearance: cooperative and comfortable HEENT normocephalic Resp normal respiratory effort Cardio regular rate GI Palpation: soft no CVA tenderness Back/Spine no CVA tenderness and thoraco-lumbar ROM normal Extremity normal to inspection, no clubbing, cyanosis or edema, no calf tenderness and no pedal edema General Extremity: edema bilateral (trace ) Psych mental status grossly normal, thought process normal, cooperative, affect normal, speech normal, activity/motor behavior normal, denies homicidal ideation and denies suicidal ideation NST FHR Rate Baby A Baseline: 145 Variability:: Moderate Accelerations:: 15 x 15 Decelerations:: None NST Reactive:: Yes FHR Category:: Category I Uterine Activity:: no contractions Assessment & Plan (1) Acute GI bleeding: PLAN: waiting on rest of labs that Dr. Galdamez ordered continue solumedrol q 8 hrs (2) 29 weeks gestation of : PLAN: NSTs reactive. no decelerations noted. no contractions. will need a growth scan in 2 weeks with doppler likely to rule out anemia. (3) Anemia: PLAN: iron studies are overall normal. This is due to acute blood loss anemia. She is status post 2 units of blood with minimal uprise in hg levels. Currently asymptomatic. (4) and not yet delivered: (5) Crohn's disease: (6) Vasculitis: Charges/Coding Visit Charges Inpatient E&M: 23708 Subs Hosp L3 Multi Select Codes Urinary/Genital Urinary/Genital CPT Codes: 60438-29 non-stress test Interp
[2025-01-14 08:33] LABS: Erythrocyte Sedimentation Rate 41 mm/hr (0-30)
[2025-01-14 09:06] LABS: ALB/GLOB Ratio 0.5 RATIO (0.9-2.4); AST(SGOT) 35 U/L (<=31); Alanine Aminotransfer ALT/SGPT 23 U/L (<=34); Albumin, Serum 2.6 g/dL (3.5-5.0); Alkaline Phosphatase 169 U/L (35-104); Anion Gap 11 (5-15); BUN 7 mg/dL (4-19); BUN/Creat Ratio 16.2 RATIO (10-20); Calcium,Total 8.7 mg/dL (7.6-11.0); Carbon Dioxide 20.4 mmol/L (21.0-32.0); Chloride 103 mmol/L (98-108); Creatinine, Serum 0.42 mg/dL (0.70-1.20); EST Glomerular Filtration Rate 132 (>60); Globulin 4.9 g/dL (2.2-4.2); Glucose 115 mg/dL (70-99); Potassium 4.3 mmol/L (3.3-5.1); Protein, Total 7.5 g/dL (5.9-8.4); Sodium Level 135 mmol/L (133-145); Total Bilirubin 0.28 mg/dL (0.00-1.30)
--- NOTE | 2025-01-14 10:29 | NURSING ---
this RN rounded on patient, patient comfortably sitting in chair reading a book, informed that lab results are back and if this RN does not hear from either provider by lunchtime, this RN will call for further information; patient verbalized understanding and denies any further needs.
[2025-01-14 13:18] VITALS: BP 112/68; PULSE 71; RESP 16; TEMP 36.6
--- NOTE | 2025-01-14 14:06 | NURSING ---
Dr. Galdamez rounded on patient and after examination states that patient can be discharged and instructed patient on follow up care and medications; patient states that she is unsure if she is able to obtain a ride home this evening and if not Dr. Galdamez states patient can stay tonight and go home in the AM; this RN will update JV after patient determines if she can get a ride today. Patient in good spirits and denies any further needs
[2025-01-14 16:00] VITALS: BP 121/75; PULSE 81; RESP 16; TEMP 36.6
--- NOTE | 2025-01-14 16:44 | DCINST_ITS ---
Discharge Instructions Diet Discharge Diet: No restrictions DC O2, CPAP, BIPAP needs Home O2 Discharge instructions: No Dressing / Incision Discharge Activity: Return to Normal Activity May resume sexual activity in: No Restrictions Weight Bearing Status: Weight bearing as tolerated Dressing / Incision Call your doctor if you observe: Fever of 101 or Higher, Dizziness, Chest pain, Increased palpitations (irregular heartbeat), Calf discomfort and Uncontrolled pain Follow Up Care Please Follow Up With: Friend,DO Ruben When: 2- 3 weeks Test Results: Test results from this visit will be discussed in further detail at your follow- up appointment, if applicable. Discharge Plan Admission Admit Date/Time: 01/14/25 08:03 Primary Reason for Your Visit: GI Bleed in Attending Provider: Yoanna Salazar Primary Care Provider: Lan Simmons Discharge Orders/Prescriptions Prescriptions: No Action Humira(CF) 40 mg/0.4 mL syringe kit 40 mg subcut Q2W [id number] 18 mg iron- 400 mcg-120 mcg tablet 1 tab PO DAILY Melani Herbal Iron 1 cap PO BID ascorbic acid (vitamin C) [Acerola C] 500 mg tablet,chewable 500 mg PO BID Referrals / Follow Up: Lan Simmons MD [Primary Care Provider] - Disposition Disposition (needs filled in before D/C Order can be placed): Home, Self Care
--- NOTE | 2025-01-14 16:45 | PCM.DC.SUM ---
Providers Date of Admission: 01/14/25 Primary Care Physician: Dr. Lan Simmons MD Consultations 01/12/25 16:37 Consult: Gastroenterology Routine Consulting Provider: [facility] Reason for Consult: Crohn's, GI bleed EMERGENT Consult: No MD Notified: Yes Date Notified: 01/12/25 Time Notified: 10:00 Method of Notification: Verbal Reason For Visit: GI BLEED IN Diagnosis Discharge Diagnosis (1) Acute GI bleeding: Status: Acute Code(s): K92.2 - Gastrointestinal hemorrhage, unspecified Plan: waiting on rest of labs that Dr. Galdamez ordered continue solumedrol q 8 hrs (2) 29 weeks gestation of : Status: Acute Code(s): Z3A.29 - 29 weeks gestation of Plan: NSTs reactive. no decelerations noted. no contractions. will need a growth scan in 2 weeks with doppler likely to rule out anemia. (3) Anemia: Status: Acute Code(s): D64.9 - Anemia, unspecified Plan: iron studies are overall normal. This is due to acute blood loss anemia. She is status post 2 units of blood with minimal uprise in hg levels. Currently asymptomatic. (4) and not yet delivered: Status: Acute Code(s): Z34.90 - Encounter for supervision of normal , unspecified, unspecified trimester (5) Crohn's disease: Status: Acute Code(s): K50.90 - Crohn's disease, unspecified, without complications (6) Vasculitis: Status: Acute Code(s): I77.6 - Arteritis, unspecified Medications at Discharge Home Medications adalimumab 40 mg/0.4 mL subcutaneous syringe kit (Humira(CF)) 40 mg subcut Q2W 01/11/25 [id number] 18 mg-folic 400 mcg-vit K1 120 mcg-herbal tablet 1 tab PO DAILY 01/11/25 Melani Herbal Iron 1 cap PO BID 01/13/25 ascorbic acid (vitamin C) 500 mg chewable tablet (Acerola C) 500 mg PO BID 01/13/25 Hospital Course Operations None Procedures None Summary of Care Provided Minutes Spent on Discharge: 15 Hospital Course: The patient was admitted to L&D due to acute blood loss anemia due to IBD flair that caused a GI bleed. She is 29 weeks gestation. She was transfused 2 units of PRBCs and her hg improved minimally but was found to be stable. Dr. Galdamez from [facility] ordered solumedrol 125 mg IV every 8 hours from 01/11/25 through 01/14/25. Inflammatory markers were followed by [facility]. The baby was on continuous monitoring for the first 24 hrs without decelerations or contractions. There after she was on NST's q shift and they were noted to be normal. The decision was made by [facility] to send her home on oral steroids on the evening of 01/14/25 and with close outpatient observation. The patient had a growth scan 2 weeks with MFM at [facility] and plans to return in 2 weeks and every 4 weeks for growth scans until delivery. Physical Exam HEENT normocephalic Resp normal respiratory effort and normal air movement GI soft to palpation, non-tender and non-distended no CVA tenderness Extremity normal to inspection General Extremity: edema bilateral (trace ) ABG / Lab / Microbiology Data 01/14/25 05:20 01/14/25 07:55 Laboratory: Laboratory Results - last 24 hr 01/12/25 10:15: Crossmatch See Detail 01/14/25 05:20: WBC 11.4 H, RBC 3.13 L, Hgb 8.9 L, Hct 28.6 L, MCV 91.4, MCH 28.4, MCHC 31.1 L, RDW Std Deviation 49.1 H, RDW Coeff of Shira 15.0 H, Plt Count 364, MPV 7.8, Immature Gran % (Auto) 1.600 H, Neut % (Auto) 74.3 H, Lymph % (Auto) 20.1, Dickinson % (Auto) 3.7, Eos % (Auto) 0.0, Baso % (Auto) 0.3, Absolute Neuts (auto) 8.5 H, Absolute Lymphs (auto) 2.29, Nucleated RBC % 0 01/14/25 07:55: ESR 41 H, Sodium 135, Potassium 4.3, Chloride 103, Carbon Dioxide 20.4 L, Anion Gap 11, BUN 7, Creatinine 0.42 L, Est GFR (MDRD) Non-Af 132, BUN/Creatinine Ratio 16.2, Glucose 115 H, Calcium 8.7, Total Bilirubin 0.28, AST 35 H, ALT 23, Alkaline Phosphatase 169 H, C-React Prot Ext Range 14.70 H, Total Protein 7.5, Albumin 2.6 L, Globulin 4.9 H, Albumin/Globulin Ratio 0.5 L Microbiology: Microbiology 01/12/25 21:25 Stool Stool Lactoferrin - Final 01/12/25 21:25 Stool Enteric Bacteriology - Final 01/12/25 21:25 Stool Clostridioides difficile (PCR) - Final D/C Instructions Discharge Diet: No restrictions May resume sexual activity in: No Restrictions Weight Bearing Status: Weight bearing as tolerated Call your doctor if you observe: Fever of 101 or Higher, Dizziness, Chest pain, Increased palpitations (irregular heartbeat), Calf discomfort and Uncontrolled pain DC O2, CPAP, BIPAP Needs Home O2 Discharge instructions: No Please Follow Up With: Friend,Ruben, DO When: 2- 3 weeks Meaningful Use Info Meaningful Use Meaningful Use Diagnoses (Choose all that apply): None applicable Ischemic Stroke Statin Dosing Therapy Reference: STATIN DOSE THERAPY REFERENCE: * Patients > 75 years receive moderate or high dose statin therapy. * Patients 75 years or YOUNGER should receive HIGH intensity statin dose unless contraindicated. You will be required to document reason for non-treatment if statin daily dose does not meet guidelines. HIGH DOSE STATIN THERAPY DAILY Atorvastatin > than or = to 40 mg Rosuvastatin > than or = to 20 mg Amlodipine + Atorvastatin > than or = to 2.5/40 mg Ezetimibe + Simvastatin 10/80 mg Simvastatin 80mg Discharge Plan Admission Admit Date/Time: 01/14/25 08:03 Primary Reason for Your Visit: GI Bleed in Attending Provider: Yoanna Salazar Primary Care Provider: Lan Simmons Discharge Orders/Prescriptions Prescriptions: No Action Humira(CF) 40 mg/0.4 mL syringe kit 40 mg subcut Q2W [id number] 18 mg iron- 400 mcg-120 mcg tablet 1 tab PO DAILY Melani Herbal Iron 1 cap PO BID ascorbic acid (vitamin C) [Acerola C] 500 mg tablet,chewable 500 mg PO BID Referrals / Follow Up: Lan Simmons MD [Primary Care Provider] - Disposition Disposition (needs filled in before D/C Order can be placed): Home, Self Care
[2025-01-15 04:07] LABS: Transferrin 275 mg/dL (192-364)
[2025-01-15 10:08] LABS: Anti-Centromere B Ab <0.2 AI (0.0-0.9); Anti-Chromatin <0.2 AI (0.0-0.9); Anti-Jo <0.2 AI (0.0-0.9); Anti-Scleroderma-70 AB <0.2 AI (0.0-0.9); Anti-dsDNA Ab 1 IU/mL (0-9); RNP Ab <0.2 AI (0.0-0.9); SJOGREN'S Anti-SS-A test < 0.2 AI (0.0-0.9); SJOGREN'S Anti-SS-B test < 0.2 AI (0.0-0.9); Smith Ab <0.2 AI (0.0-0.9)
[2025-01-15 13:08] LABS: Cytoplasmic Ab (C-ANCA) <1:20 titer (Neg:<1:20); HEPATITIS B SURFACE AG Negative (Negative); Hep C Antibodies Non Reactive (Non Reactive); Hepatitis A IgM Antibody Negative (Negative); Hepatitis B Core AB IgM Negative (Negative); Perinuclear Ab (P-ANCA) <1:20 titer (Neg:<1:20)
== END 2025-01-14 17:15 | disposition home or self-care (01) | DRG 831 ==
LOC: ED 22:26 → WPOUT 22:59 → WP 22:59 → WPOUT 01-14 10:59 → WP 01-14 10:59
PROVIDERS: Internal Medicine Gastroenterology; Admitting Provider Obstetrics & Gynecology; Emergency Provider Emergency Medicine; PCP Family Medicine; Visit Provider Obstetrics & Gynecology
DX: O99.013 Anemia complicating pregnancy, third trimester (principal); O99.42 Diseases of the circulatory system complicating childbirth; K92.2 Gastrointestinal hemorrhage, unspecified; D62 Acute posthemorrhagic anemia; K50.90 Crohn's disease, unspecified, without complications; I77.6 Arteritis, unspecified; O99.613 Diseases of the digestive system complicating pregnancy, third trimester; Z3A.29 29 weeks gestation of pregnancy; Z79.52 Long term (current) use of systemic steroids; N96 Recurrent pregnancy loss; O99.892 Other specified diseases and conditions complicating childbirth
CPT/HCPCS: 36415; 59025; 59050; 80053; 80074; 82150; 82653; 82728; 82784; 82785; 82787; 83540; 83550; 83615; 83630; 83690; 84165; 84466; 85025; 85045; 85652; 86003; 86005; 86037; 86140; 86225; 86235; 86334; 86480; 86850; 86900; 86901; 86920; 86921; 86922; 87177; 87209; 87493; 87506; 99285; P9016; A4216

== ENCOUNTER → 2025-01-11 | Outpatient (CLI) | payer OTHER, SELFPAY ==
[2025-01-11 16:19] LABS: Absolute Lymphocyte Count 3.11 X10^3/uL (0.83-4.51); Absolute Neutrophil Count 4.7 X10^3/uL (2.0-7.7); Basophil# 0.02 X10^3/uL; Basophil% 0.2 % (0-1); Eosinophil# 0.41 X10^3/uL; Eosinophils% 4.7 % (0-5); Hemoglobin 8.6 g/dL (12.0-15.0); Lymphocyte # 3.11 X10^3/ul (0.83-4.51); Lymphocyte % 35.4 % (19-41); Mean Corp Hgb Conc 30.7 g/dL (32-36); Mean Corpuscular Hgb 27.3 pg (27.0-32.0); Mean Corpuscular Volume 88.9 fL (81-99); Mean Platelet Vol. 7.8 fl (6.2-12.0); Monocyte# 0.48 X10^3/uL; Monocyte% 5.5 % (0-10); NRBC Flagged by Analyzer 0 % (0-5); Neutrophil % 53.4 % (47-70); Platelet Count 483 K/mm3 (150-450); RBC Distribution Width SD 48.1 fl (35.1-43.9); Red Blood Count 3.15 M/mm3 (4.2-5.4); White Blood Count 8.8 K/mm3 (4.4-11.0)
[2025-01-11 17:26] LABS: ALB/GLOB Ratio 0.5 RATIO (0.9-2.4); AST(SGOT) 28 U/L (<=31); Alanine Aminotransfer ALT/SGPT 21 U/L (<=34); Albumin, Serum 2.7 g/dL (3.5-5.0); Alkaline Phosphatase 284 U/L (35-104); Anion Gap 11 (5-15); BUN 7 mg/dL (4-19); Calcium,Total 8.8 mg/dL (7.6-11.0); Carbon Dioxide 23.7 mmol/L (21.0-32.0); Chloride 98 mmol/L (98-108); EST Glomerular Filtration Rate 121 (>60); Ferritin 195 ng/mL (22-378); Globulin 5.9 g/dL (2.2-4.2); Glucose 82 mg/dL (70-99); Potassium 3.8 mmol/L (3.3-5.1); Protein, Total 8.5 g/dL (5.9-8.4); Sodium Level 132 mmol/L (133-145); Total Bilirubin 0.42 mg/dL (0.00-1.30); Vitamin B12 1000 pg/mL (180-914); Vitamin D,25 Hydroxy 28.5 ng/mL (30-100)
[2025-01-11 17:40] LABS: Iron 41 ug/dL (50-170); Iron Binding Capacity,Total 334 ug/dL (250-450); Iron Binding Capacity,Unsat 293 ug/dL (228-428)
== END | disposition home or self-care (01) ==
LOC: LAB 15:37
PROVIDERS: PCP Family Medicine; Referring Provider Nurse Practitioner Acute Care; Visit Provider Nurse Practitioner Acute Care
DX: Z34.90 Encounter for supervision of normal pregnancy, unspecified, unspecified trimester (principal); K50.90 Crohn's disease, unspecified, without complications; I77.6 Arteritis, unspecified; D64.9 Anemia, unspecified
CPT/HCPCS: 36415; 80053; 82306; 82607; 82728; 83540; 83550; 85025; 86140

== ENCOUNTER → 2025-01-31 | Outpatient (CLI) | payer OTHER, SELFPAY ==
[2025-01-31 11:16] LABS: Erythrocyte Sedimentation Rate 45 mm/hr (0-30)
[2025-01-31 11:19] LABS: Absolute Lymphocyte Count 1.78 X10^3/uL (0.83-4.51); Absolute Neutrophil Count 8.2 X10^3/uL (2.0-7.7); Basophil# 0.01 X10^3/uL; Basophil% 0.1 % (0-1); Eosinophil# 0.04 X10^3/uL; Eosinophils% 0.4 % (0-5); Hematocrit 30.6 % (37-47); Hemoglobin 9.9 g/dL (12.0-15.0); Lymphocyte # 1.78 X10^3/ul (0.83-4.51); Lymphocyte % 16.9 % (19-41); Mean Corp Hgb Conc 32.4 g/dL (32-36); Mean Corpuscular Volume 89.7 fL (81-99); Mean Platelet Vol. 7.9 fl (6.2-12.0); Monocyte# 0.38 X10^3/uL; Monocyte% 3.6 % (0-10); NRBC Flagged by Analyzer 0 % (0-5); Neutrophil # 8.21 X10^3/uL (2.7-7.7); Neutrophil % 78.1 % (47-70); Platelet Count 343 K/mm3 (150-450); RBC Distribution Width SD 48.4 fl (35.1-43.9); Red Blood Count 3.41 M/mm3 (4.2-5.4); White Blood Count 10.5 K/mm3 (4.4-11.0)
[2025-01-31 11:37] LABS: ALB/GLOB Ratio 0.8 RATIO (0.9-2.4); AST(SGOT) 11 U/L (<=31); Alanine Aminotransfer ALT/SGPT 11 U/L (<=34); Albumin, Serum 3.4 g/dL (3.5-5.0); Alkaline Phosphatase 82 U/L (35-104); Anion Gap 11 (5-15); BUN 10 mg/dL (4-19); Carbon Dioxide 21.4 mmol/L (21.0-32.0); Chloride 102 mmol/L (98-108); Creatinine, Serum 0.52 mg/dL (0.70-1.20); EST Glomerular Filtration Rate 126 (>60); Globulin 4.2 g/dL (2.2-4.2); Glucose 114 mg/dL (70-99); Potassium 4.1 mmol/L (3.3-5.1); Protein, Total 7.7 g/dL (5.9-8.4); Sodium Level 134 mmol/L (133-145); Total Bilirubin 0.31 mg/dL (0.00-1.30)
[2025-01-31 12:08] LABS: Hepatitis B Surface Antibody Nonreactive
== END | disposition home or self-care (01) ==
LOC: LAB 10:44
PROVIDERS: PCP Family Medicine; Referring Provider Nurse Practitioner Acute Care; Visit Provider Nurse Practitioner Acute Care
DX: Z34.90 Encounter for supervision of normal pregnancy, unspecified, unspecified trimester (principal); K50.90 Crohn's disease, unspecified, without complications; D64.9 Anemia, unspecified; K92.2 Gastrointestinal hemorrhage, unspecified; I77.6 Arteritis, unspecified
CPT/HCPCS: 36415; 80053; 85025; 85652; 86140; 86706

== ENCOUNTER → 2025-02-04 | Outpatient (CLI) | payer OTHER, SELFPAY ==
[2025-02-04 14:49] LABS: Absolute Lymphocyte Count 1.47 X10^3/uL (0.83-4.51); Absolute Neutrophil Count 9.3 X10^3/uL (2.0-7.7); Basophil# 0.01 X10^3/uL; Basophil% 0.1 % (0-1); Hematocrit 29.7 % (37-47); Hemoglobin 9.4 g/dL (12.0-15.0); Lymphocyte # 1.47 X10^3/ul (0.83-4.51); Lymphocyte % 13.4 % (19-41); Mean Corp Hgb Conc 31.6 g/dL (32-36); Mean Corpuscular Hgb 28.8 pg (27.0-32.0); Mean Corpuscular Volume 91.1 fL (81-99); Monocyte# 0.09 X10^3/uL; Monocyte% 0.8 % (0-10); NRBC Flagged by Analyzer 0 % (0-5); Neutrophil # 9.28 X10^3/uL (2.7-7.7); Neutrophil % 84.3 % (47-70); Platelet Count 347 K/mm3 (150-450); RBC Distribution Width CV 15.3 % (11.6-14.6); RBC Distribution Width SD 50.4 fl (35.1-43.9); Red Blood Count 3.26 M/mm3 (4.2-5.4)
== END | disposition home or self-care (01) ==
LOC: LAB 14:17
PROVIDERS: PCP Family Medicine; Referring Provider Nurse Practitioner Acute Care; Visit Provider Nurse Practitioner Acute Care
DX: K92.2 Gastrointestinal hemorrhage, unspecified (principal); K50.90 Crohn's disease, unspecified, without complications; D64.9 Anemia, unspecified
CPT/HCPCS: 36415; 85025

== ENCOUNTER → 2025-02-18 | Outpatient (CLI) | payer OTHER, SELFPAY ==
[2025-02-18 10:48] LABS: Absolute Lymphocyte Count 1.42 X10^3/uL (0.83-4.51); Absolute Neutrophil Count 7.5 X10^3/uL (2.0-7.7); Basophil# 0.01 X10^3/uL; Basophil% 0.1 % (0-1); Eosinophil# 0.03 X10^3/uL; Eosinophils% 0.3 % (0-5); Hematocrit 29.6 % (37-47); Hemoglobin 9.3 g/dL (12.0-15.0); Lymphocyte # 1.42 X10^3/ul (0.83-4.51); Mean Corp Hgb Conc 31.4 g/dL (32-36); Mean Corpuscular Hgb 28.4 pg (27.0-32.0); Mean Corpuscular Volume 90.5 fL (81-99); Mean Platelet Vol. 7.7 fl (6.2-12.0); Monocyte# 0.46 X10^3/uL; Monocyte% 4.9 % (0-10); NRBC Flagged by Analyzer 0 % (0-5); Neutrophil # 7.48 X10^3/uL (2.7-7.7); Neutrophil % 79.3 % (47-70); Platelet Count 284 K/mm3 (150-450); RBC Distribution Width CV 14.8 % (11.6-14.6); RBC Distribution Width SD 49.6 fl (35.1-43.9); Red Blood Count 3.27 M/mm3 (4.2-5.4); White Blood Count 9.4 K/mm3 (4.4-11.0)
== END | disposition home or self-care (01) ==
LOC: LAB 10:27
PROVIDERS: PCP Family Medicine; Referring Provider Nurse Practitioner Acute Care; Visit Provider Nurse Practitioner Acute Care
DX: Z34.90 Encounter for supervision of normal pregnancy, unspecified, unspecified trimester (principal); K50.90 Crohn's disease, unspecified, without complications; K92.2 Gastrointestinal hemorrhage, unspecified; D64.9 Anemia, unspecified; I77.6 Arteritis, unspecified
CPT/HCPCS: 36415; 85025

== ENCOUNTER → 2025-03-04 | Outpatient (CLI) | payer OTHER, SELFPAY ==
[2025-03-04 14:43] LABS: Differential Indicated MANUAL DIFF; Hematocrit 25.6 % (37-47); Mean Corp Hgb Conc 31.3 g/dL (32-36); Mean Corpuscular Hgb 28.6 pg (27.0-32.0); Mean Corpuscular Volume 91.4 fL (81-99); Mean Platelet Vol. 8.1 fl (6.2-12.0); POSITIVE COUNT YES; POSITIVE MORPHOLOGY YES; Platelet Count 441 K/mm3 (150-450); RBC Distribution Width CV 14.3 % (11.6-14.6); RBC Distribution Width SD 48.4 fl (35.1-43.9); White Blood Count 11.3 K/mm3 (4.4-11.0)
[2025-03-04 15:17] LABS: Lymphocyte 15 % (19-41); Metamyelocyte 1 % (0-1); Monocyte 4 % (0-10); Myelocyte 1 % (0-0); Neutrophil-Band 1 % (0-5); Neutrophil-Segmented 78 % (47-70); Platelet Estimate ADEQUATE (ADEQ); Red Cell Morphology NORM C+C NORMAL (NORM C&C); Total Cells Counted 100 (MANUAL DIFF)
[2025-03-04 15:18] LABS: Absolute Neutrophil Count 8.9 X10^3/uL (2.0-7.7); Pathologist Review May foll
[2025-03-04 15:55] LABS: Iron Binding Capacity,Total 270 ug/dL (250-450)
--- OUTSIDE RECORDS SUMMARY | 2025-03-04 23:29 | XMS RPT_ITS | CCD ---
Author Organization [facility] CliniSyal Care Team Providers Care Car Carder Name Role Phone UPTAIN, CRYSTAL CNM Admitting Unavailable UPTAIN, CRYSTAL CNM Attending Unavailable UPTAIN, CRYSTAL CNM Primary Care Unavailable DEBORA MCCRACKEN Consulting Unavailable PROVIDER, UNKNOWN Consulting Unavailable UPTAIN, CRYSTAL CNM Admitting Unavailable UPTAIN, CRYSTAL CNM Attending Unavailable UPTAIN, CRYSTAL CNM Primary Care Unavailable KAYKAYDEBORA HURTADO Consulting Unavailable PROVIDER, UNKNOWN Consulting Unavailable UPTAIN, CRYSTAL CNM Admitting Unavailable UPTAIN, CRYSTAL CNM Attending Unavailable UPTAIN, CRYSTAL CNM Primary Care Unavailable KAYKAYDEBORA HURTADO Consulting Unavailable PROVIDER, UNKNOWN Consulting Unavailable UPTAIN, CRYSTAL CNM Admitting Unavailable UPTAIN, CRYSTAL CNM Attending Unavailable UPTAIN, CRYSTAL CNM Primary Care Unavailable KAYKAYDEBORA HURTADO Consulting Unavailable PROVIDER, UNKNOWN Consulting Unavailable LOLA, JOSHUA CNM Admitting Unavailable LOLA, JOSHUA CNM Attending Unavailable LOLA, JOSHUA CNM Primary Care Unavailable KAYKAYDEBORA HURTADO Consulting Unavailable PROVIDER, UNKNOWN Consulting Unavailable HONG, BRANDEN CNM Admitting Unavailable HONG, BRANDEN CNM Attending Unavailable HONG, BRANDEN CNM Primary Care Unavailable Zen POSADAS, Jane Argueta Unavailable Uptain CNM, Crystal K Unavailable [facility] Unavailable Deanne SALES EXEC, Orin Unavailable Valerie Galarza MA Unavailable Unavailable Aiden GOULD, Malathi Phillips Unavailable Unavaila ble Martlaina WISEN, Keila Unavailable Unavailable Iris GARCIA, Lan Phillips Unavailable Bradford WISEN, Hamida Unavailable Unavailable Unavailable Unavailable Katherine Rivero MA Unavailable Unavailable Unavailable Unavailable Unavailable Primary Care Provider UnavailIVELISSE Hoskins Referring Unavailable Generic Provider MD, No Assigned Pcp Primary Car e Provider Unavailable Generic Provider MD, No Assigned Pcp Primary Car e Provider Unavailable CHANDAR, GEORGES K Attending Unavailable GENERIC PROVIDER, NO ASSIGNED PCP Primary Care Unavailable JAYSON MCCULLOUGH Admitting Unavailab SHIVA Infante Consulting Unavailable LORY WINTERS Attending Unavailable CHANDAR, GEORGES K Attending Unavailable GENERIC PROVIDER, NO ASSIGNED PCP Primary Care Unavailable NOREEN FLORES Referring Unavailable MEL GUZMAN Admitting Unava ilable MEL GUZMAN Attending Unava ilable DERRELL TRISTAN Referring Unavailable GENERIC PROVIDER, NO ASSIGNED PCP Primary Care Unavailable LORY WINTERS Attending Unavailable GENERIC PROVIDER, NO ASSIGNED PCP Primary Care Unavailable TOBY ZHOU Attending Unavailable MAUREEN TA Referring Unavailable CHANDAR, GEORGES K Attending Unavailable LORY MARTINEZ Referring Unavailable CHANDAR, GEORGES K Attending Unavailable EDY PELAYO Referring Unavailable VACCARIELLO, LAN Phillips Primary Care Unavailable VACCARIELLO, LAN Phillips Referring Unavailable MISTY BROWNING Attending Unavailable VACCARISHERRON, LAN Phillips Referring Unavailable VACCARIELLO, LAN Phillips Primary Care Unavailable MISTY BROWNING Attending Unavailable Nisha Walton LPN Unavailable Unavailable Shields, Gastroenterology Unavailable [phone] Nikhil LECYoanna Attending Provider Dr. Lan Simmons MD Primary Care Provider Nikhil INDUSTRIAL METHODS CONSULTANT-Yoanna Patel Referring Provider Tony Mendoza MD Emergency Provider Tony Mendoza MD Emergency Provider Dr. Yoanna Salazar DO Attending Provider Dr. Yoanna Salazar DO Other Provider [phone] Dr. Ruben Galdamez DO Attending Provider Dr. Yoanna Salazar DO Admit Provider [phone] Dr. Yoanna Salazar DO Referring Provider Dr. Lan Simmons MD Referring Provider Teetee GOULD, Edy Unavailable Unavailable VACCARIELLO, LAN Primary Care Unavailable VACCARIELLO, LAN Attending Unavailable TESFAYE, JANE PAC Consulting Unavailable VACCARIELLO, LAN Admitting Unavailable PROVIDER, UNKNOWN Consulting Unavailable TESFAYE, JANE PAC Consulting Unavailable LINN, NATI T Admitting Unavailable LINN, NATI T Primary Care Unavailable LINN, NATI T Attending Unavailable PROVIDER, UNKNOWN Consulting Unavailable Nikhil, Yoanna Attending Unavailable Vaccariello, Lan Referring Unavailable Vaccariello, Lan Primary Care Unavailable Nikhil, Yoanna Attending Unavailable Vaccariello, Lan Referring Unavailable Vaccariello, Lan Primary Care Unavailable Vande Velde, Yoanna Attending Unavailabl e Vande Velde, Yoanna Admitting Unavailabl e Vaccariello, Lan Primary Care Unavailable Nikhil, Yoanna Attending Unavailable Nikhil, Yoanna Referring Unavailable Vaccariello, Lan Primary Care Unavailable Nikhil, Yoanna Referring Unavailable Nkihil, Yoanna Attending Unavailable Vaccariello, Lan Primary Care Unavailable Nikhil, Yoanna Attending Unavailable Nikhil, Yoanna Referring Unavailable Vaccariello, Lan Primary Care Unavailable Nikhil, Yoanna Attending Unavailable Nikhil, Yoanna Referring Unavailable Vaccariello, Lan Primary Care Unavailable Vande Velde, Yoanna Consulting Unavailabl e Vande Velde, Yoanna Attending Unavailabl e Vaccariello, Lan Primary Care Unavailable Vande Velde, Yoanna Consulting Unavailabl e Vande Velde, Yoanna Referring Unavailabl e Vaccariello, Lan Primary Care Unavailable Rudolph, Ruben Attending Unavailable Vande Velde, Yoanna Attending Unavailabl e Vande Velde, Yoanna Consulting Unavailabl e Vaccariello, Lan Primary Care Unavailable Vande Velde, Yoanna Attending Unavailabl e Vande Velde, Yoanna Consulting Unavailabl e Vaccariello, Lan Primary Care Unavailable Nikhil, Yoanna Attending Unavailable KAREN GARCIA, NENA Phillips Consulting Unavailable TAMARA VIDES MD Attending Unavailab CEASAR Acosta DO Admitting Unavailable GUMARO GARCIA, DR REBA Cuevas Consulting Unavailable TRUDY ARMENTA, NIKHIL Consulting Unavailabl e Allergies Allergy Classification Reported Allergen(s) Allergy Type Date of Onset Reaction(s) Facility (17 sources) mesalamine; Translations: [MESALAMINE] Drug Allergy 4 Other [facility] 3 Repository (1 source) CDIFF; Translations: [CDIFF] Propensity to adverse reactions (disorder) [facility] Repository Medications Current Medications Medication Drug Class(es) Dates Sig (Normalized) Sig (Original) acetaminophen 325 mg oral capsule (11 sources) Start: 02-23-2025 End: 03-05-2025 take 1 capsule by mouth every six hours as needed for pain Tylenol 325 mg oral capsule Dose : 650 mg =, Oral, q6h, PRN as needed for pain, X 10 day(s), # 30 cap(s), 0 Refill(s), 03/05/25 12:47:00 PM EDT, Pharmacy: [facility], 160, cm, 02/21/25 8:52:00 EDT, Height, kg, 02/21/25 8:52:00 EDT, Dosing Weight Start Date: 02/23/25 Stop Date: 03/05/25 Status: Ordered Quantity: 30.0 Unit: cap(s) Repeat number: 1 Start: 09-27-2024 take 1 tablet by priscila th every six hours as needed 975 mg, oral, Every 6 hours PRN, pain mild (1-3), first line, Starting on Nandini 09/27/24 at 1240, If ordered PRN for pain, nurse is permitted to administer this medication for higher pain scores based on patient preference? Yes Start: 02-24-2024 End: 10-02-2024 take 2 tablets by mouth every six hours for pain acetaminophen (Tylenol) 325 mg tablet Indications: Crohn disease of upper gastrointestinal tract Take 2 tablets (650 mg) by mouth every 6 hours if needed for mild pain (1 - 3). 30 tablet 1 10/02/2024 Active Start: 02-21-2024 take 1 tablet by priscila th every six hours 650 mg, oral, Every 6 hours, First dose on Tue02/21/24 at 1930, If ordered PRN for pain, nurse is permitted to administer this medication for higher pain scores based on patient preference? Yes 0.4 ml adalimumab 100 mg/ml auto-injector (20 sources) Tumor Necrosis Factor Negar Start: 02-21-2025 inject 1 dose by subcutaneous injection every other week Humira Pen 40 mg/0.4 mL subcutaneous kit Dose : 40 mg =, Subcutaneous, q2wk, 0 Refill(s) Start Date: 02/21/25 Status: Ordered Repeat number: 1 Start: 01-11-2025 Adalimumab (Hu rosana(Cf)) 40 mg/0.4 mL syringe kit Active 40 mg SC every 2 weeks January 11, 2025 12:00am Start: 08-21-2024 adalimumab (Hu rosana Pen) 40 mg/0.4 mL pen injector kit pen-injector Indications: Inflammatory bowel disease Inject 1 Pen (40 mg) under the skin every 14 (fourteen) days. 2 each 11 08/21/2024 Active Start: 08-21-2024 End: 11-29-2024 adalimumab (Humira,CF, Pen [facility] 80 mg/0.8 mL pen injector kit pen-injector Indications: Inflammatory bowel disease adalimumab (Humira) dose instructions: On day 1, inject 160 mg under the skin. On day 15, inject 80 mg under skin. Change sites each time. take 160 mg (2 Pens) subcutaneous on day 0 then take 80 mg subcutaneous on day 15 3 each 08/21/2024 11/29/2024 Discontinued (Therapy completed) Humira Pen 40 mg /0.8 mL subcutaneous kit ; 1 every 2 weeks (40 mg/0.8 mL) Comments: GI Comment on above: GI amoxicillin 875 mg / clavulanate 125 mg oral tablet (1 source) Penicillin-class Antibacterial Start: 2023 End: 2023 take 1 tablet by mouth once daily amoxicillin-pot clavulanate (Augmentin) 875-125 mg tablet Indications: Necrotizing fasciitis (Multi) Take 1 tablet by mouth once daily for 7 days. 7 tablet 02/24/2024 03/02/2024 Active ascorbic acid 500 mg chewable tablet (6 sources) Vitamin C Start: 2024 take 1 tablet by mouth twice daily Ascorbic Acid (Vitamin C) (Acerola C) 500 mg tablet,chewable Active 500 mg PO TWICE A DAY January 13, 2025 12:00am bisacodyl 10 mg rectal suppository (1 source) Stimulant Laxative Start: 2024 take 10 mg rectal route every twenty-four hours as needed 10 mg, rectal, Daily PRN, constipation, first line, Severe, Starting on Tue09/27/24 at 1240 Melani Herbal Iron (6 sources) Start: 2024 Melani Herbal Iron Active 1 NMA PO TWICE A DAY January 13, 2025 12:00am ferrous sulfate 325 mg delayed release oral tablet (2 sources) take 1 tablet by mouth three times daily ferrous sulfate 325 (65 Fe) mg EC tablet Take 1 tablet by mouth 3 times daily (morning, midday, late afternoon). Do not crush, chew, or split. Active 1 ml hydrALAZINE hydrochloride 20 mg/ml injection (1 source) Arteriolar Vasodilator Start: 2024 5 mg, intravenous, Administer over 2 Minutes, Once as needed, Systolic greater than or equal to 160 OR Diastolic greater than or equal to 110, Starting on Tue09/27/24 at 1240, For 1 dose, Consult provider prior to administration. Push over more than 2 minutes. Systolic greater than or equal to 160 OR Diastolic greater than or equal to 110. Repeat blood pressure in 20 minutes. Contraindication: coronary artery disease (CAD); Caution in suspected CAD Iron (7 sources) Start: 2024 Qm-Nr-Lilo-Folic-K1-He rbal 354 18 mg iron- 400 mcg-120 mcg tablet Active 1 {tbl} PO DAILY January 11, 2025 12:00am iron sucrose (Venofer) 300 mg in sodium chloride 0.9% 250 mL IV (1 source) Start: 2023 End: 2023 300 mg, intravenous, at 176.7 mL/hr, Administer over 90 Minutes, Daily, First dose on Tue02/22/24 at 1645, For 3 days labetalol hydrochloride 5 mg/ml injectable solution (1 source) beta-Adrenergic Negar Start: 2024 20 mg, intravenous, Administer over 2 Minutes, Once as needed, Systolic greater than or equal to 160 OR Diastolic greater than or equal to 110, Starting on Tue09/27/24 at 1239, For 1 dose, Consult provider prior to administration. Push over more than 2 minutes. Systolic greater than or equal to 160 OR Diastolic greater than or equal to 110. Repeat blood pressure in 10 minutes. Contraindications: active asthma, heart disease, heart failure, maternal bradycardia Lidocaine (1 source) Antiarrhythmic, Amide Local Anesthetic Start: 2024 inject 0.5 mL by subcutaneous injection once as needed 0.5 mL, subcutaneous, Once as needed, Prior to IV insertion, Starting on Tue09/27/24 at 1240, For 1 dose loperamide hydrochloride 2 mg oral capsule (4 sources) Opioid Agonist Start: 2024 take 2 capsules by mouth three times daily as needed for diarrhea loperamide (Imodium) 2 mg capsule Indications: Crohn disease of upper gastrointestinal tract Take 2 capsules (4 mg) by mouth 3 times a day as needed for diarrhea. 30 capsule 1 10/02/2024 Active Start: 09-27-2024 take 4 mg by mouth t hree times daily as needed for diarrhea 4 mg, oral, 3 times daily PRN, diarrhea, Starting on Tue09/27/24 at 1241 magnesium hydroxide 80 mg/ml oral suspension (1 source) Start: 09-27-2024 10 mL, oral, E very 24 hours PRN, constipation, second line, Starting on Tue09/27/24 at 1240, Follow administration with 8 ounces of water. magnesium oxide 400 mg oral tablet (2 sources) Start: 10-01-2024 take 400 mg by mouth once daily 400 mg, oral, Daily, First dose on 10/01/24 at 1115 Start: 09-29-2024 End: 09-29-2024 take 400 mg by mouth once 400 mg, oral, Once, On Sat at 0730, For 1 dose metoclopramide 10 mg oral tablet (2 sources) Dopamine-2 Receptor Antagonist Start: 09-27-2024 take 1 tablet by mouth every six hours as needed 10 mg, oral, Every 6 hours PRN, nausea/vomiting, second line, Starting on Tue09/27/24 at 1240, Use oral route first, if possible. Start: 02-21-2024 End: 02-21-2024 10 mg, intravenous, Once as needed, nausea/vomiting, first line, Starting on Tue02/21/24 at 2251, For 1 dose, Recovery (only) Naloxone (1 source) Opioid Antagonist Start: 02-21-2024 0.2 mg, intravenous, Every 5 min PRN, respiratory depression, Starting on Tue02/21/24 at 1923, If respiratory rate is less than 8 breaths/minute or patient is difficult to arouse stop any narcotics and contact physician. Administer slow IV push. Repeat as ordered until patient's respiratory rate is greater than 12 breaths/minute. NIFEdipine 10 mg oral capsule (1 source) Dihydropyridine Calcium Channel Negar Start: 09-27-2024 take 10 mg by mouth once as needed 10 mg, oral, Once as needed, Systolic greater than or equal to 160 OR Diastolic greater than or equal to 110, Starting on Nandini 09/27/24 at 1240, For 1 dose, Consult provider prior to administration. ondansetron 4 mg oral tablet (20 sources) Serotonin-3 Receptor Antagonist Start: 09-27-2024 take 1 tablet by mouth every six hours as needed 4 mg, oral, Every 6 hours PRN, nausea/vomiting, first line, Starting on Tue09/27/24 at 1240, Use oral route first, if possible. Start: 09-27-2024 End: 09-27-2024 take 4 mg by mouth once 4 mg, oral, Once, On Nandini09/27 at 0430, For 1 dose Start: 02-21-2024 take 4 mg intravenou sly every eight hours as needed 4 mg, intravenous, Every 8 hours PRN, nausea/vomiting, first line, Starting on Tue02/21/24 at 1925, 1st Line. Give IV if patient is unable to take orally. If inadequate response within 60 minutes, proceed to next-line agent for same PRN reason or contact provider if no further options ordered. When administering via IV Push, administer over 3-5 minutes. Zofran 24 mg tab let (oral) ; (24 mg) Status: Inactive oxyCODONE hydrochloride 5 mg oral tablet (4 sources) Opioid Agonist Start: 02-23-2025 End: 02-26-2025 oxyCODONE 5 mg oral tablet ( IMMEDIATE release ) Dose : 5 mg = 1 tab(s), Oral, q6h, PRN for pain, # 12 tab(s), 0 Refill(s), Pharmacy: [facility], Post-op pain, 160, cm, 02/21/25 8:52:00 EDT, Height, 89, kg, 02/21/25 8:52:00 EDT, Dosing Weight Start Date: 02/23/25 Stop Date: 02/26/25 Status: Ordered Quantity: 12.0 Unit: tab(s) Repeat number: 1 Indications: Other acute postprocedural pain; Start: 02-21-2024 take 1 tablet by priscila th every four hours as needed 10 mg, oral, Every 4 hours PRN, pain severe (7-10), first line, Starting on Tue02/21/24 at 1925 Start: 02-21-2024 End: 02-29-2024 take 1 tablet by mouth every six hours for pain oxyCODONE (Roxicodone) 5 mg immediate release tablet Indications: Necrotizing fasciitis (Multi) Take 1 tablet (5 mg) by mouth every 6 hours if needed for severe pain (7 - 10) for up to 5 days. 15 tablet 02/24/2024 02/29/2024 Active pantoprazole 40 mg delayed release oral tablet (7 sources) Proton Pump Inhibitor Start: 01-14-2025 take 1 tablet by mouth once daily Pantoprazole 40 mg tablet,delayed release (DR/EC) Active 40 mg PO daily January 14, 2025 12:00am piperacillin 4000 mg / tazobactam 500 mg injection (2 sources) Penicillin-clas s Antibacterial, beta Lactamase Inhibitor Start: 02-23-2024 take 4.5 g intravenously every six hours 4.5 g, intravenous, at 200 mL/hr, Administer over 0.5 Hours, Every 6 hours, First dose (after last modification) on Nandini 02/23/24 at 0030, premix bag, Dosing of this medication varies based on severity of illness. Does this patient have sepsis or concern for sepsis (probable or documented infection plus systemic manifestations of infection)? No, Suspected Indication (Select all that apply): Cellulitis, Skin and Soft Tissue, Type of Therapy: Empiric, Indications: Cellulitis, Skin and Soft Tissue Start: 02-21-2024 End: 02-22-2024 take 3.375 g intravenously every six hours 3.375 g, intravenous, at 100 mL/hr, Administer over 0.5 Hours, Every 6 hours, First dose on e 02/21/24 at 1830, premix bag, Dosing of this medication varies based on severity of illness. Does this patient have sepsis or concern for sepsis (probable or documented infection plus systemic manifestations of infection)? No, Suspected Indication (Select all that apply): Cellulitis, Skin and Soft Tissue, Type of Therapy: Empiric polyethylene glycol 3350 [id number] mg powder for oral solution (2 sources) Osmotic Laxative Start: 09-27-2024 17 g, oral, 2 times daily PRN, constipation, first line, Starting on Tue09/27/24 at 1240 Start: 09-27-2024 take 17 g by mouth e very twenty-four hours as needed 17 g, oral, Daily PRN, constipation, Starting on Tue09/27/24 at 0716, Bowel Regimen - for prevention of constipation. predniSONE 10 mg oral tablet (20 sources) Start: 02-23-2025 End: 03-02-2025 predniSONE 10 mg oral tablet Dose : 40 mg = 4 tab(s), Oral, qDay, # 28 tab(s), 0 Refill(s), Pharmacy: [facility], 160, cm, 02/21/25 8:52:00 EDT, Height, kg, 02/21/25 8:52:00 EDT, Dosing Weight Start Date: 02/23/25 Stop Date: 03/02/25 Status: Ordered Quantity: 28.0 Unit: tab(s) Repeat number: 1 Start: 02-21-2025 take 1 dose by mouth once daily predniSONE Dose : 50 mg =, Oral, qDay, 0 Refill(s) Start Date: 02/21/25 Status: Ordered Repeat number: 1 Start: 02-18-2025 Prednisone 5 m g tablet Active 5 mg PO .COMPLEX 50 February 18, 2025 12:00am 5 mg orally; as directed with taper Start: 01-14-2025 End: 03-04-2025 take 3 tablets by mouth once daily Prednisone 20 mg tablet Discontinued 60 mg PO daily 90 January 14, 2025 12:00am March 04, 2025 2:43pm Start: 10-03-2024 End: 10-08-2024 take 2 tablets by mouth once daily predniSONE (Deltasone) 20 mg tablet Indications: Crohn disease of upper gastrointestinal tract Take 2 tablets (40 mg) by mouth once daily for 5 days. 10 tablet 10/03/2024 10/08/2024 Active Start: 10-02-2024 End: 11-29-2024 take 1 tablet by mouth once daily predniSONE (Deltasone) 10 mg tablet Indications: Crohn disease of upper gastrointestinal tract Take 1 tablet (10 mg) by mouth once daily for 7 days. 7 tablet 10/02/2024 10/09/2024 Active Start: 10-02-2024 End: 10-09-2024 take 3 tablets by mouth once daily predniSONE (Deltasone) 10 mg tablet Indications: Crohn disease of upper gastrointestinal tract Take 3 tablets (30 mg) by mouth once daily for 7 days. 21 tablet 10/02/2024 10/09/2024 Active Start: 10-02-2024 End: 10-09-2024 take 1 tablet by mouth once daily predniSONE (Deltasone) 20 mg tablet Indications: Crohn disease of upper gastrointestinal tract Take 1 tablet (20 mg) by mouth once daily for 7 days. 7 tablet 10/02/2024 10/09/2024 Active Start: 10-02-2024 End: 10-09-2024 take 7 tablets by mouth once daily predniSONE (Deltasone) 5 mg tablet Indications: Crohn disease of upper gastrointestinal tract Take 7 tablets (35 mg) by mouth once daily for 7 days. 49 tablet 10/02/2024 10/09/2024 Active Start: 10-02-2024 End: 10-09-2024 take 5 tablets by mouth once daily predniSONE (Deltasone) 5 mg tablet Indications: Crohn disease of upper gastrointestinal tract Take 5 tablets (25 mg) by mouth once daily for 7 days. 35 tablet 10/02/2024 10/09/2024 Active Start: 10-02-2024 End: 10-09-2024 take 3 tablets by mouth once daily predniSONE (Deltasone) 5 mg tablet Indications: Crohn disease of upper gastrointestinal tract Take 3 tablets (15 mg) by mouth once daily for 7 days. 21 tablet 10/02/2024 10/09/2024 Active Start: 10-01-2024 End: 10-08-2024 take 40 mg by mouth once daily 40 mg, oral, Daily, First dose on Tue10/01/24 at 0700, For 7 days Start: 05-24-2024 End: 08-02-2024 take 4 tablets by mouth once daily, then take 3 tablets by mouth once daily, then take 2 tablets by mouth once daily, then take 1 tablet by mouth once daily predniSONE 10 mg tablets,dose pack Indications: Inflammatory bowel disease Take 40 mg by mouth once daily for 10 days, THEN 30 mg once daily for 10 days, THEN 20 mg once daily for 20 days, THEN 10 mg once daily. 140 each 05/24/2024 08/02/2024 Active Start: 12-02-2023 End: 01-01-2024 predniSONE 20 mg tablet ; 1 (one) tablet daily for 30 days Quantity: 30 {Tablet} Refills: 0 Ordered: 02-Dec-2023 ERIC Rivero Start: 02-Dec-2023 End: 01-Jan-2024 Status: Inactive Start: 11-14-2023 End: 11-21-2023 predniSONE 20 mg tablet ; 1 (one) tablet daily for 7 days Quantity: 7 {Tablet} Refills: 0 Ordered: 14-Nov-2023 CUAUHTEMOC Tesfaye Start: 14-Nov-2023 End: 21-Nov-2023 Status: Inactive Start: 11-11-2023 predniSONE 20 mg tablet ; 1 (one) tablet daily for 7 days Quantity: 7 {Tablet} Refills: 0 Ordered: 11-Nov-2023 CUAUHTEMOC Tesfaye Start: 11-Nov-2023 Multivitamins (1 source) Start: 02-21-2025 Multi vitamins Oral, qDay, 0 Refill(s) Start Date: 02/21/25 Status: Ordered Repeat number: 1 [id number] (Prenatabs Rx) 29 mg iron- 1 mg tablet (2 sources) take 1 tablet by mouth once daily vit,[id number] (Prenatabs Rx) 29 mg iron- 1 mg tablet Take 1 tablet by mouth once daily. Active vitamin (iron-folic) tablet 1 tablet (1 source) Start: 09-27-2024 1 tablet, oral , Daily, First dose on Tue09/27/24 at 1300, provides 0.8 mg folic acid psyllium 3400 mg powder for oral suspension (20 sources) Start: 09-27-2024 1 packet, oral , Daily PRN, any constipation, Starting on Tue09/27/24 at 1240, Give with at least 8 ounces of water or juice Metamucil ; two times daily Status: Inactive simethicone 80 mg chewable tablet (1 source) Start: 09-27-2024 take 80 mg by mouth four times daily as needed 80 mg, oral, 4 times daily PRN, flatulence, Starting on Tue09/27/24 at 1240 vancomycin 125 mg oral capsule (3 sources) Glycopeptide Antibacterial Start: 02-24-2024 End: 03-09-2024 take 1 capsule by mouth every six hours vancomycin (Vancocin) 125 mg capsule Indications: Abdominal Infection Take 1 capsule (125 mg) by mouth every 6 hours for 14 days. 56 capsule 02/24/2024 03/09/2024 Active Start: 02-22-2024 take 1 capsule by [facility] every six hours 500 mg, oral, Every 6 hours, First dose (after last modification) on Tue02/22/24 at 2300, Suspected Indication (Select all that apply): Abdominal Infection, Type of Therapy: Definitive, Based on Culture, Type of infection: Healthcare-Associated, Indications: Abdominal Infection Start: 02-21-2024 End: 02-22-2024 take 125 mg by mouth four times daily 125 mg, oral, 4 times daily, First dose on Tue02/21/24 at 2100, Suspected Indication (Select all that apply): Abdominal Infection, Type of Therapy: Definitive, Based on Culture, Type of infection: Healthcare-Associated vancomycin (Vancocin) in dextrose 5 % water (D5W) 500 mL IV 1,500 mg (2 sources) Start: 02-22-2024 1,500 mg (roun ded from 1,347 mg = 15 mg/kg 89.8 kg), intravenous, at 333.3 mL/hr, Administer over 90 Minutes, Every 12 hours, First dose (after last modification) on Tue02/22/24 at 2230, Dosing of this medication varies based on severity of illness. Does this patient have sepsis or concern for sepsis (probable or documented infection plus systemic manifestations of infection)? Yes, Suspected Indication (Select all that apply): Cellulitis, Skin and Soft Tissue, Type of Therapy: Empiric, Indications: Cellulitis, Skin and Soft Tissue Start: 02-22-2024 End: 02-22-2024 1,500 mg (rounded from 1,347 mg = 15 mg/kg 89.8 kg), intravenous, at 333.3 mL/hr, Administer over 90 Minutes, Every 12 hours, First dose on Tue02/22/24 at 0015, Dosing of this medication varies based on severity of illness. Does this patient have sepsis or concern for sepsis (probable or documented infection plus systemic manifestations of infection)? Yes, Suspected Indication (Select all that apply): Cellulitis, Skin and Soft Tissue, Type of Therapy: Empiric vancomycin (Vancocin) pharma cy to dose - pharmacy monitoring (1 source) Start: 02-21-2024 miscellaneous, Daily PRN, other, Vancomycin Placeholder, Starting on Tue02/21/24 at 1805, This is a placeholder. Pharmacy will enter orders when vancomycin needs to be administered. Completed/Discontinued Medications Medication Drug Class(es) Dates Sig (Normalized) Sig (Original) 14 actuat budesonide 2 mg/actuat rectal foam (4 sources) Corticosteroid Start: 05-24-2024 End: 10-02-2024 take 2 mg rectal route once daily budesonide (Uceris) 2 mg/actuation foam Indications: Inflammatory bowel disease Insert 2 mg into the rectum once daily. 33.4 g 1 05/24/2024 10/02/2024 Discontinued (Stop Taking at Discharge) calcium chloride 0.0014 meq/ml / potassium chloride 0.004 meq/ml / sodium chloride 0.103 meq/ml / sodium lactate 0.028 meq/ml injectable solution (3 sources) Start: 09-27-2024 End: 09-27-2024 1,000 mL, intravenous, at 999 mL/hr, Administer over 1 Hours, Once, On [facility] 09/27/24 at 0410, For 1 dose Start: 02-21-2024 End: 02-22-2024 take 100 mL intravenously every hour 100 mL/hr, intravenous, Continuous, Starting on Tue02/21/24 at 2315, Recovery (only) 50 ml clindamycin 18 mg/ml injection (2 sources) Lincosamide Antibacterial Start: 02-21-2024 End: 02-22-2024 Starting on Tue02/21/24 at 2039, For 1 dose, Created by cabinet override premix bag cyclobenzaprine hydrochloride 10 mg oral tablet (4 sources) Muscle Relaxant Start: 10-02-2024 End: 11-29-2024 take 1 tablet by mouth twice daily as needed for muscle spasms cyclobenzaprine (Flexeril) 10 mg tablet Indications: Crohn disease of upper gastrointestinal tract Take 1 tablet (10 mg) by mouth 2 times a day as needed for muscle spasms. 20 tablet 1 10/02/2024 11/29/2024 Discontinued (Therapy completed) Start: 09-27-2024 take 10 mg by mouth three times daily as needed for muscle spasms 10 mg, oral, 3 times daily PRN, muscle spasms, Starting on Tue09/27/24 at 1241 0.4 ml enoxaparin sodium 100 mg/ml prefilled syringe (2 sources) Low Molecular Weight Heparin Start: 09-27-2024 End: 09-29-2024 inject 40 mg by subcutaneous injection every twenty-four hours 40 mg, subcutaneous, Every 24 hours, First dose on Tue09/27/24 at 0720, Indications: deep vein thrombosis prevention Start: 02-21-2024 inject 40 mg by subc utaneous injection every twenty-four hours 40 mg, subcutaneous, Every 24 hours, First dose on Tue02/21/24 at 1930, Indications: deep vein thrombosis prevention 1 ml HYDROmorphone hydrochloride 1 mg/ml cartridge (2 sources) Opioid Agonist Start: 02-21-2024 End: 02-22-2024 0.5 mg, intravenous, Every 5 min PRN, pain severe (7-10), first line, Starting on Tue02/21/24 at 2251, Recovery (only), Max total of 4 mg regardless of dose. Start: 02-21-2024 End: 02-22-2024 0.2 mg, intravenous, Every 5 min PRN, pain moderate (4-6), first line, Starting on Tue02/21/24 at 2251, Recovery (only), Max total of 4 mg regardless of dose. iohexol (OMNIPaque) 350 mg iodine/mL solution 75 mL (1 source) Start: 06-13-2024 End: 06-13-2024 75 mL, intravenous, Once in imaging, Starting on Tue06/13/24 at 1452, For 1 dose 5 ml iron sucrose 20 mg/ml injection (1 source) Parenteral Iron Replacement Start: 10-01-2024 End: 10-01-2024 200 mg, intravenous, Administer over 5 Minutes, Once, On Tue10/01/24 at 1800, For 1 dose methylPREDNISolone 125 mg injection (2 sources) Corticosteroid Start: 09-30-2024 End: 09-30-2024 20 mg, intravenous, Once, On Tue09/30/24 at 2230, For 1 dose Start: 09-27-2024 End: 09-30-2024 take 20 mg intravenously every eight hours 20 mg, intravenous, Every 8 hours, First dose on Tue09/27/24 at 1700, For 72 hours 5 ml metoprolol tartrate 1 mg/ml injection (1 source) beta-Adrenergic Negar Start: 02-21-2024 End: 02-21-2024 5 mg, intravenous, Once, On Tue02/21/24 at 2315, For 1 dose, Recovery (only) Start: 02-21-2024 End: 02-21-2024 5 mg, intravenous, Once, On Tue02/21/24 at 2315, For 1 dose, Recovery (only) microencapsulated potassium chloride 20 meq extended release oral tablet (20 sources) Start: 09-27-2024 End: 09-27-2024 take 1 [oz_av] by mouth once 20 mEq, oral, Once, On Tue09/27/24 at 1700, For 1 dose, Dissolve each packet in 4 ounces of water = 5 mEq per 1 oz fluid. Start: 09-27-2024 End: 09-27-2024 20 mEq, oral, Once, On Tue09/27/24 at 1700, For 1 dose, Best given with food and plenty of water to minimize gastric irritation. Do not crush or chew. Start: 02-22-2024 End: 02-22-2024 20 mEq, oral, Once, On Tue02/22/24 at 1345, For 1 dose, Best given with food and plenty of water to minimize gastric irritation. Do not crush or chew. Start: 02-21-2024 End: 02-22-2024 take 20 mEq intravenously every two hours 20 mEq, intravenous, at 50 mL/hr, Administer over 2 Hours, Every 2 hours, First dose on Tue02/21/24 at 2040, For 2 doses, Total dose is 40 mEq via peripheral line. Start: 11-11-2023 End: 12-14-2023 potassium chloride ER 20 mEq tablet,extended release(part/cryst) ; 1 (one) tablet two times daily for 30 days Quantity: 60 {Tablet} Refills: 0 Ordered: 14-Nov-2023 CUAUHTEMOC Tesfaye Start: 14-Nov-2023 End: 14-Dec-2023 Status: Inactive vitamin k1 5 mg oral tablet (1 source) Warfarin Reversal Agent, Vitamin K Start: 02-22-2024 End: 02-22-2024 take 10 mg by mouth once 10 mg, oral, Once, On Tue02/22/24 at 1645, For 1 dose Problems Active Problems Problem Classification Problem Date Documented Da te Episodic/Chronic Deficiency and other anemia (20 sources) Anemia; Translations: [Anemia, unspecified] 01-11-2025 Episodic Deficiency and other anemia (2 sources) Anemia, unspecified; Translations: [Anemia, unspecified] Onset: 01-11-2025 Episodic Fluid and electrolyte disorders (20 sources) Hypokalemia; Translations: [Hypokalemia] 11-11-2023 Episodic Gastrointestinal hemorrhage (20 sources) Rectal hemorrhage; Translations: [Hemorrhage of anus and rectum] Onset: 01-21-2025 07-15-2023 Episodic Immunity disorders (10 sources) Patient immunocompromised; Translations: [Immunodeficiency, unspecified] 02-04-2025 Chronic Immunizations and screening for infectious disease (1 source) Rubella non-immune 02-21-2025 Episodic Noninfectious gastroenteritis (20 sources) Chronic diarrhea; Translations: [Noninfective gastroenteritis and colitis, unspecified] Onset: 03-15-2024 08-19-2023 Episodic Other circulatory disease (20 sources) Vasculitis; Translations: [Arteritis, unspecified] 01-11-2025 Chronic Other circulatory disease (2 sources) Arteritis, unspecified; Translations: [Arteritis, unspecified] Onset: 01-11-2025 Chronic Other complications of (1 source) Maternal obesity complicating , childbirth and the puerperium, antepartum; Translations: [Obesity complicating , second trimester] 11-12-2024 Chronic Other complications of (2 sources) Obesity complicating , second trimester; Translations: [Obesity complicating , second trimester ([facility])] Onset: 11-12-2024 Chronic Other complications of (1 source) Crohn's disease; Translations: [Diseases of the digestive system complicating , second trimester] Onset: 11-13-2024 11-13-2024 Episodic Other complications of (2 sources) Diseases of the digestive system complicating , second trimester; Translations: [Diseases of the digestive system complicating , second trimester ([facility])] Onset: 11-12-2024 Episodic Other gastrointestinal disorders (20 sources) Mucus in stool; Translations: [Other fecal abnormalities] 07-15-2023 Episodic Other inflammatory condition of skin (20 sources) Vasculitis of the skin; Translations: [Vasculitis limited to the skin, unspecified] 12-31-2024 Episodic Other nervous system disorders (1 source) Other acute postprocedural pain; Translations: [Other acute postprocedural pain] Onset: 02-21-2025 Episodic Other nutritional; endocrine; and metabolic disorders (6 sources) Body mass index 30+ - obesity; Translations: [Obesity, unspecified] Onset: 04-26-2024 04-26-2024 Chronic Other nutritional; endocrine; and metabolic disorders (20 sources) H/O: thyroid disorder; Translations: [Personal history of other endocrine, nutritional and metabolic disease] 07-15-2023 Episodic Other and delivery including normal (20 sources) Encounter for supervision of other normal , third trimester; Translations: [Encounter for supervision of other normal , second trimester] Onset: 11-08-2018 08-26-2021 Episodic Other screening for suspected conditions (not mental disorders or infectious disease) (20 sources) Patient encounter status; Translations: [Encounter for screening, unspecified] Onset: 11-12-2024 04-22-2021 Episodic Other screening for suspected conditions (not mental disorders or infectious disease) (3 sources) Encounter for other specified screening; Translations: [Encounter for other specified screening] Onset: 12-06-2018 Regional enteritis and ulcerative colitis (20 sources) Ulcerative colitis; Translations: [Ulcerative colitis, unspecified, without complications] Onset: 09-27-2024 11-11-2023 Chronic Residual codes; unclassified (20 sources) Gestation period, 27 weeks; Translations: [27 weeks gestation of ] 04-22-2021 Episodic Residual codes; unclassified (20 sources) Non-smoker; Translations: [Other specified health status] 07-15-2023 Episodic Residual codes; unclassified (20 sources) Gestation period, 38 weeks; Translations: [38 weeks gestation of ] 06-10-2021 Episodic Residual codes; unclassified (20 sources) Gestation period, 37 weeks; Translations: [37 weeks gestation of ] 06-03-2021 Episodic Residual codes; unclassified (20 sources) Gestation period, 35 weeks; Translations: [35 weeks gestation of ] 05-20-2021 Episodic Residual codes; unclassified (20 sources) Gestation period, 31 weeks; Translations: [31 weeks gestation of ] 04-22-2021 Episodic Residual codes; unclassified (20 sources) Gestation period, 21 weeks; Translations: [21 weeks gestation of ] 02-12-2021 Episodic Residual codes; unclassified (20 sources) Gestation period, 15 weeks; Translations: [15 weeks gestation of ] 01-01-2021 Episodic Residual codes; unclassified (1 source) Postoperative state; Translations: [Other specified postprocedural states] 02-24-2024 Episodic Residual codes; unclassified (20 sources) Gestation period, 19 weeks; Translations: [19 weeks gestation of ] 11-02-2024 Episodic Residual codes; unclassified (1 source) FH: Crohn's disease; Translations: [Family history of other diseases of the digestive system] 11-12-2024 Episodic Residual codes; unclassified (20 sources) Gestation period, 23 weeks; Translations: [23 weeks gestation of ] 12-03-2024 Episodic Residual codes; unclassified (2 sources) Family history of other diseases of the digestive system; Translations: [Family history of other diseases of the digestive system] Onset: 11-12-2024 Episodic Residual codes; unclassified (13 sources) Gestation period, 29 weeks; Translations: [29 weeks gestation of ] 01-11-2025 Episodic Residual codes; unclassified (14 sources) Gestation period, 32 weeks; Translations: [32 weeks gestation of ] 02-07-2025 Episodic Residual codes; unclassified (14 sources) Gestation period, 33 weeks; Translations: [33 weeks gestation of ] 02-13-2025 Episodic Residual codes; unclassified (1 source) 29 weeks gestation of ; Translations: [29 weeks gestation of ] Onset: 01-21-2025 Episodic Residual codes; unclassified (1 source) 27 weeks gestation of ; Translations: [27 weeks gestation of ] Onset: 01-02-2019 Residual codes; unclassified (1 source) 23 weeks gestation of ; Translations: [23 weeks gestation of ] Onset: 12-06-2018 Unclassified (20 sources) Abortions, spontaneous 07-15-2023 Comment on above: 1. Unclassified (20 sources) deliveries 07-15-2023 Comment on above: 2. Unclassified (20 sources) 07-15-2023 Comment on above: 3. Unclassified (20 sources) Number of Children 07-15-2023 Comment on above: 2. Unclassified (20 sources) Number of Pregnancies 07-15-2023 Comment on above: 3. 4. Unclassified (20 sources) Para 07-15-2023 Comment on above: 2. Unclassified (20 sources) Term 07-15-2023 Comment on above: 1. Unclassified (20 sources) Follow up from hospital stay - Name of Hospital: [facility] . Date of Admission: 11/07/23. Date of Discharge: 11/07/23. The patient was hospitalized for abdominal pain/nausea . New medications include potassium (Also Bactrim for a UTI and Zofran for nausea). Patient did not have any consultations ordered while in the hospital. No post hospital therapies were ordered. Patient was discharged to home. Current Symptoms: abdominal pain, fatigue, headache, muscle pain, nausea and vomiting. Note for Follow up from hospital stay: Patient was recently diagnosed with Ulcerative Colitis and was seen in the ER for a flare of her disease. She has not been able to see her specialist regarding this.Patient reports that she continues to have a hard time keeping her medication down. 11-11-2023 Unclassified (20 sources) [ADDITIONAL REASON] Transition into care - The patient is transitioning into care from an emergency room and a summary of care was reviewed. 11-11-2023 Unclassified (20 sources) Transition into care - The patient is transitioning into care from an emergency room and a summary of care was reviewed. 11-11-2023 Unclassified (20 sources) [ADDITIONAL REASON] Follow up from hospital stay - Name of Hospital: [facility] . Date of Admission: 11/07/23. Date of Discharge: 11/07/23. The patient was hospitalized for abdominal pain/nausea . New medications include potassium (Also Bactrim for a UTI and Zofran for nausea). Patient did not have any consultations ordered while in the hospital. No post hospital therapies were ordered. Patient was discharged to home. Current Symptoms: abdominal pain, fatigue, headache, muscle pain, nausea and vomiting. Note for Follow up from hospital stay: Patient was recently diagnosed with Ulcerative Colitis and was seen in the ER for a flare of her disease. She has not been able to see her specialist regarding this.Patient reports that she continues to have a hard time keeping her medication down. 11-11-2023 Urinary tract infections (20 sources) Urinary tract infectious disease; Translations: [Urinary tract infection, site not specified] 11-11-2023 Episodic Past or Other Problems Problem Classification Problem Date Documented Date Episodic/Chronic Other connective tissue disease (10 sources) Necrotizing fasciitis; Translations: [Necrotizing fasciitis] Onset: 02-21-2024 Resolved: 02-24-2024 02-24-2024 Episodic Other connective tissue disease (1 source) Necrotizing fasciitis; Translations: [Necrotizing fasciitis (Multi)] Onset: 02-24-2024 Episodic Residual codes; unclassified (4 sources) Other specified postprocedural states; Translations: [Other specified postprocedural states] Onset: 02-21-2024 Episodic Unclassified (20 sources) Rectal bleeding - The onset of the rectal bleeding has been gradual and has been occurring in an intermittent pattern for 2 weeks (2 weeks ago patient started having mucus with her bowel movements. She reports large amounts of this and some bowel movements that are mostly mucus. She started having rectal bleeding within the last week). The course has been recurrent. The bleeding is characterized as blood streaking of toilet paper. The symptoms have been associated with hard stools and mucus or pus with stool, while the symptoms have not been associated with abdominal pain, change in bowel habits, dizziness, easy bruising, family history of colon cancer, heartburn, ingestion of iron pills, nausea, painful bowel movements, use of aspirin, vomiting or weight loss. The symptoms do not include pain, painful bowel movements or itching. There have been no previous diagnostic tests. Note for Rectal bleeding: Patient was diagnosed with a potential internal hemorrhoid approximately a year ago and declined a colonoscopy at that time. 07-15-2023 Unclassified (20 sources) Rectal bleeding - The onset of the rectal bleeding has been sudden and has been occurring in a persistent (noticed blood with every bowel movement) pattern for 5 days. The course has been constant. The bleeding is characterized as blood mixed in stools and blood streaking of toilet paper. The symptoms have been associated with abdominal pain (intermittent), while the symptoms have not been associated with dizziness, family history of colon cancer, ingestion of beets, ingestion of bismuth, ingestion of iron pills, mucus or pus with stool, nausea, painful bowel movements, use of aspirin or weight loss. The accompanying symptoms include pain (does have abdominal pain with the bowel movements like when you have diarrhea, like pressure or something), but do not include painful bowel movements or itching. Note for Rectal bleeding: Been having diarrhea for the past 2 weeks. On Tuesday evening, she started taking Immodium. This resolved the diarrhea and she continued to take it Tuesday and Tuesday. Now she is starting to feel bloated and that she is becoming constipated. Her last bowel movement was this morning and was more solid with blood streaks and blood in the toilet bowel water. Previously with the diarrhea, her stool was watery with blood.Is taking Metamucil two times daily. 07-26-2022 Unclassified (20 sources) Post- visit - The patient is here for a scheduled follow-up visit after an elective . There were no complications. The patient feels well with no complaints, is sleeping well and has good energy level. There are no urinary problems. There are no bowel problems. Perineum/wound: abdominal wound healing well. The patient is formula feeding the . There are no feeding difficulties. Menstruation: Last menstrual period date: (now). Patient states that sexual activity has not resumed. The patient has resumed physical activity. Patient states that she is coping/adjusting to motherhood well and family is interacting well with . 08-26-2021 Unclassified (20 sources) Post- visit - The patient is here for an initial visit after an elective . There were no complications. The patient feels well with no complaints, is sleeping well and has good energy level. The patient denies chills, depression (post- blues), fatigue, fever, headache, insomnia, perineal pain, vaginal discharge, vaginal bleeding, breast engorgement, breast pain, abdominal pain, trouble sleeping or incisional pain. There are no urinary problems. There are no bowel problems. Perineum/wound: abdominal wound healing well. The patient is breast feeding the . There are no feeding difficulties. 06-24-2021 Unclassified (20 sources) visit - The patient is here for a 38 week visit. 06-10-2021 Unclassified (20 sources) visit - The patient is here for a 37 week visit. 06-03-2021 Unclassified (20 sources) visit - The patient is here for a 35 week visit. 05-20-2021 Unclassified (20 sources) visit - The patient is here for a 31 week (4 days) visit. 04-22-2021 Unclassified (20 sources) visit - The patient is here for a 27 week visit. 03-25-2021 Unclassified (20 sources) visit - The patient is here for a 21 week visit. 02-12-2021 Unclassified (20 sources) visit (initial) - The patient suspects she is due to a positive home test and missed menses. Last menstrual period: Date: (11/14/20). - (2) Parity - (1) Abortions - (1). The patient complains of nausea and headache. There has been no vaginal discharge. There has been no vaginal bleeding. There have been no urinary problems. There have been no bowel problems. Contraceptive history includes none. Surgical history includes previous . Current medications include vitamins. Habits include caffeine use. 01-01-2021 Unclassified (4 sources) Onset: 08-30-2024 08-30-2024 Unclassified (20 sources) visit (initial) - The patient suspects she is due to missed menses. Last menstrual period: more than 3 months ago. - (4) Parity - (2) Abortions - (1). The patient has no complaints. There has been no vaginal discharge. There has been no vaginal bleeding. There have been no urinary problems. Bowel problems include diarrhea. Contraceptive history includes none. Surgical history includes previous . Current medications include vitamins. There is no alcohol, caffeine, illicit drug or tobacco use. 10-08-2024 Unclassified (20 sources) visit - The patient is here for a 19 week (3) visit. 11-05-2024 Unclassified (20 sources) visit - The patient is here for a 23 week visit. 12-03-2024 Unclassified (20 sources) visit - The patient is here for a 27 week (3) visit. 12-31-2024 Unclassified (12 sources) visit - The patient is here for a 31 week (3) visit. 01-28-2025 Unclassified (7 sources) visit - The patient is here for a 33 week (5 days) visit. 02-13-2025 Unclassified (7 sources) NST 02-07-2025 Results Test Name Value Interpretation Reference Range Facility Absolute lymphocyte countOrd ered By: Yoanna Tejeda on 03-04-2025 Lymphocytes Auto (Unsp spec) [#/Vol] 1.70 10*3/uL 0.83-4.51 [facility] Absolute neutrophil countOrd ered By: Yoanna Tejeda on 03-04-2025 Neutrophils (Bld) [#/Vol] 8.9 10*3/uL High 2.0-7.7 [facility] Blood band neutrophil count as percentage of total leukocytesOrdered By: Yoanna Tejeda on 03-04-2025 Band form neutrophils/100 WBC (Bld) 1 % 0-5 [facility] Blood lymphocytes/100 leukoc ytesOrdered By: Yoanna Tejeda on 03-04-2025 Lymphocytes/100 WBC (Bld) 15 % Low 19-41 [facility] Blood metamyelocytes/100 ervin kocytesOrdered By: Yoanna Tejeda on 03-04-2025 Metamyelocytes/100 WBC (Bld) 1 % 0-1 [facility] Blood monocytes/100 leukocyt esOrdered By: Yoanna Tejeda on 03-04-2025 Monocytes/100 WBC (Bld) 4 % 0-10 [facility] Blood segmented neutrophils/ 100 leukocytesOrdered By: Yoanna Tejeda on 03-04-2025 Segmented neutrophils/100 WBC (Bld) 78 % High 47-70 [facility] Erythrocyte distribution wid th ratioOrdered By: Yoanna Tejeda on 03-04-2025 Erythrocyte distribution width (RBC) [Ratio] 14.3 % 11.6-14.6 [facility] Erythrocyte distribution wid th standard deviationOrdered By: Yoanna Tejeda on 03-04-2025 Erythrocyte distribution width (RBC) [Ratio] 48.4 fl High 35.1-43.9 [facility] Erythrocyte morphology asses smentOrdered By: Yoanna Tejeda on 03-04-2025 RBC morphology finding Nom (Bld) NORM C+C NORMAL NORM C&C [facility] Hematocrit Auto (Bld) [Volum e fraction]Ordered By: Yoanna Tejeda on 03-04-2025 Hematocrit (Bld) [Volume fraction] 25.6 % Low 37-47 [facility] Hemoglobin measurementOrdere d By: Yoanna Tejeda on 03-04-2025 Hemoglobin (Bld) [Mass/Vol] 8.0 g/dL Low 12.0-15.0 [facility] MCV (mean corpuscular volume ) determinationOrdered By: Yoanna Tejeda on 03-04-2025 MCV (RBC) [Entitic vol] 91.4 fL 81-99 [facility] Mean corpuscular hemoglobin (MCH) determinationOrdered By: Yoanna Tejeda on 03-04-2025 MCH (RBC) [Entitic mass] 28.6 pg 27.0-32.0 [facility] Mean corpuscular hemoglobin concentration (MCHC) determinationOrdered By: Yoanna Tejeda on 03-04-2025 MCHC (RBC) [Mass/Vol] 31.3 g/dL Low 32-36 [facility] Mean platelet volume determi nationOrdered By: Yoanna Tejeda on 03-04-2025 Platelet mean volume (Bld) [Entitic vol] 8.1 fL 6.2-12.0 [facility] Myelocyte %Ordered By: Darcy Tejeda on 03-04-2025 Myelocytes/100 WBC (Bld) 1 % High 0-0 [facility] Platelet countOrdered By: Cyrus Tejeda on 03-04-2025 Platelets (Bld) [#/Vol] 441 10*3/uL 150-450 [facility] Platelet estimateOrdered By: Yoanna Tejeda on 03-04-2025 Platelets LM Ql (Bld) ADEQUATE ADEQ [facility] RBC Auto (Bld) [#/Vol]Ordere d By: Yoanna Tejeda on 03-04-2025 RBC (Bld) [#/Vol] 2.80 10*6/uL Low 4.2-5.4 [facility] Review by pathologistOrdered By: Yoanna Tejeda on 03-04-2025 Pathologist review Noah (Unsp spec) [Interp] May foll [facility] Serum or plasma iron saturat ion measurement (mass fraction)Ordered By: Yoanna Tejeda on 03-04-2025 Iron saturation [Mass fraction] 50.0 % 13-59 [facility] Total cell countOrdered By: Yoanna Tejeda on 03-04-2025 Cells counted Molgen (Bld/Tiss) [#] 100 MANUAL DIFF [facility] White blood cell (WBC) count Ordered By: Yoanna Tejeda on 03-04-2025 WBC (Bld) [#/Vol] 11.3 10*3/uL High 4.4-11.0 [facility] [id number] 02-26-2025 [facility] Misc. COMMENT Normal . [facility] Comment on above: Order Comment: SERUM [id number] and Anti-Adalimumab Result Comment: Test Ordered: [id number] Adalimumab Drug + Antibody Adalimumab Drug Level 1.9 ug/mL ES Reference Range: . Quantitation Limit: <0.6 ug/mL Results of 0.6 or higher indicate detection of adalimumab. Comments: - The optimal drug concentration depends upon patient- specific factors including the disease and desired therapeutic endpoint. - Maintenance trough concentrations >=7.5 may correspond to higher remission rates.(1) - Mucosal healing may be more likely in patients with maintenance trough levels >8.14.(2) - In rheumatoid arthritis, trough levels of 5-8 are associated with clinical (EULAR) response.(3) - This assay measures the antibody-unbound (free) fraction of adalimumab when serum anti-adalimumab antibodies are present. Anti-Adalimumab Antibody <25 ng/mL ES Reference Range: . Interpretation: The above result is an UNDETECTED Antibody titer Quantitation Limit: <25 ng/mL. Results of 25 or higher indicate detection of anti- adalimumab antibodies. 25 - 100 ng/mL: LOW titer 101 - 300 ng/mL: INTERMEDIATE titer 301 or greater ng/mL: HIGH titer Comments: - Anti-drug antibody levels should be interpreted in the context of the concomitant free drug trough concentration. - Low anti-drug antibodies may be transient while high titers are likely to be more consequential.(4-6) - Some immunogenicity is reversible. Elimination of intermediate titer (and even some high titer) anti-adalimumab antibodies has been achieved with dose escalation and/or methotrexate or 6-MP.(7) - This anti-adalimumab antibody assay is drug tolerant, and all positive results are verified for anti-drug specificity by a confirmatory test. References: 1. Marysol N, et al. AGA Review on TDM in IBD. Gastroenterol 2017;153:835-857. 2. Anna Gu et al. J Crohns Col 2016;10(5):510-515. 3. Pouw MF, et al. Neisha Rheum Dis 2015;74:513-518. 4. Bartkareems GM, et al. RODRIGO 2011;305(14):8072-8691. 5. Stejayashree C, et al. J Clin Gastroenterol 2016; 50:482-489. 6. Yanai H, et al. Clin Gastroenterol Hepatol 2015; 13(3):522-530. 7. Fawad A, et al. Gastroenterol 2019;156(6):S-617. These tests were developed and their performance characteristics determined by [facility]. They have not been cleared or approved by the Food and Drug Administration. However, these electrochemiluminescence immunoassay (ECLIA) measurements of adalimumab and anti-adalimumab antibody (constituting DoseASSURE ADL) have been developed and validated in accordance with CLIA (Clinical Laboratory Improvement Amendments) and the FDA Guidance document, Assay Development and Validation for Immunogenicity Testing of Therapeutic Protein Products (2019). Performed at: [facility] [address] [place] [id number] It Security Engineer: Nate Lyons MD, Phone: [phone] Performed at: [address] [id number] It Security Engineer: Pepe Tolentino PhD, Phone: [phone] Performed By: #### L 3100.3427, L3400.3069, L7000.0752, L3200.0557, [id number], L5500.2311 #### [facility] [place], [address] Final Surgical Pathology Rep robert 02-25-2025 Final Surgical Pathology Report . Pathology Reports Accession: Collected Date/Time: Received Date/Time: Pathologist: [id number] 02/21/2025 15:38 EDT 02/22/2025 07:18 EDT LINDA OGLESBY MD Final Surgical Pathology Report DIAGNOSIS: PLACENTA (386 G): - UMBILICAL CORD: TRIVASCULAR - MEMBRANES: NO EVIDENCE OF CHORIOAMNIONITIS; MECONIUM HISTIOCYTES PRESENT - PLACENTAL PARENCHYMA: THIRD TRIMESTER VILLOUS MATURATION; NO EVIDENCE OF VILLITIS OR VILLOUS EDEMA CLINICAL INFORMATION: REPEAT C SECTION GESTATION OF BABY () Procedure: REPEAT C SECTION Preoperative diagnosis: REPEAT C SECTION Postoperative diagnosis: REPEAT C SECTION SPECIMEN: A PLACENTA GROSS DESCRIPTION: All parts labelled with patient name and [id number] Received in formalin labelled placenta is a hubbard placenta weighing 386 g and measuring 15 x 13.5 x 2.2 cm. The 3 vessel umbilical cord inserts 5 cm to the nearest placental margin, measures 6.5 cm long, and 0.8 cm diameter. Extraplacental membranes are frausto-springer, translucent and inserting at the placental margin. The surface is purple-blue with arborizing vasculature. The maternal surface is red-brown with multiple areas of yellow fibrinous tissue throughout 30% of the surface. On cut section the disc is red-brown, soft and spongy with 2 peripheral yellow rubbery lesions within the parenchyma measuring 1.5 x 0.7 and 2 x 0.7 cm. The majority of the fibrinous tissue is confined to the maternal surface. Environmental Services Director sections are submitted-3 Abby Redmond, Pathologists' Refuse Driver (ASCP) Performed by ABBY REDMOND MICROSCOPIC DESCRIPTION: The microscopic examination is performed, except in the case of Gross Only. Verified by Pathology Report verified by [facility] LIDNA OGLESBY Sign out Date: 02/25/2025 11:37 Performing Lab: [facility], [address] [place] [id number] [place] [address] Pathology Dept Disclaimer If ancillary studies were utilized, the following Laboratory Developed Test (LDT) disclaimer will apply: Under CLIA requirements, [facility] is qualified to perform high complexity testing. For all ancillary stains, positive and negative controls stain appropriately. Performance characteristics of immunohistochemical and chromogenic in-situ hybridization tests have been determined by [facility]. These tests are used for clinical purposes, They should not be regarded as investigational or for research. Normal [facility] .Auto Diffon 02-23-2025 Basophil, Absolute 0.0 10 3/mcL Normal 0.0-0.3 [facility] Comment on above: Performed By: #### A DIFF, CBC, ANEU #### [address] [address] Basophils/100 WBC (Bld) 0.1 % Normal 0.0-2.5 [facility] Comment on above: Performed By: #### A DIFF, CBC, ANEU #### [address] [address] Eosinophil, Absolute 0.0 10 3/mcL Normal 0.0-0.7 [facility] Comment on above: Performed By: #### A DIFF, CBC, ANEU #### [address] [address] Eosinophils/100 WBC (Bld) 0.4 % Normal 0.0-6.0 [facility] Comment on above: Performed By: #### A DIFF, CBC, ANEU #### [address] [address] Lymphocyte, Absolute 2.5 10 3/mcL Normal 0.9-4.3 [facility] Comment on above: Performed By: #### A DIFF, CBC, ANEU #### [address] [address] Lymphocytes/100 WBC (Bld) 28.9 % Normal 20.0-40.0 [facility] Comment on above: Performed By: #### A DIFF, CBC, ANEU #### [address] [address] Monocyte, Absolute 0.7 10 3/mcL Normal 0.1-1.4 [facility] Comment on above: Performed By: #### A DIFF, CBC, ANEU #### [place] [id number] Monocytes/100 WBC (Bld) 7.8 % Normal 2.0-13.0 [facility] Comment on above: Performed By: #### A DIFF, CBC, ANEU #### [place] [id number] Neutrophils/100 WBC (Bld) 62.8 % Normal 50.0-75.0 [facility] Comment on above: Performed By: #### A DIFF, CBC, ANEU #### [place] [address] .NEUABSon 02-23-2025 Neutrophil, Absolute 5.5 10 3/mcL Normal 2.3-8.1 [facility] Comment on above: Performed By: #### A DIFF, CBC, ANEU #### [place] [address] CBCon 02-23-2025 Erythrocyte distribution width (RBC) [Ratio] 15.2 % Normal 11.5-15.5 [facility] Comment on above: Performed By: #### A DIFF, CBC, ANEU #### [place] [address] Hematocrit (Bld) [Volume fraction] 23.3 % Low 34.0-46.0 [facility] Comment on above: Performed By: #### A DIFF, CBC, ANEU #### [place] [address] Hgb 7.7 G/dL Low 12.0-16.0 [facility] Comment on above: Performed By: #### A DIFF, CBC, ANEU #### [place] [id number] MCH (RBC) [Entitic mass] 28.5 pg Normal 27.0-33.0 [facility] Comment on above: Performed By: #### A DIFF, CBC, ANEU #### [place] [address] MCHC 33.1 G/dL Normal 32.0-36.0 [facility] Comment on above: Performed By: #### A DIFF, CBC, ANEU #### [place] [address] MCV (RBC) [Entitic vol] 86.3 fL Normal 80.0-99.0 [facility] Comment on above: Performed By: #### A DIFF, CBC, ANEU #### [place] [address] Platelet 323 10 3/mcL Normal 150-450 [facility] Comment on above: Performed By: #### A DIFF, CBC, ANEU #### [place] [address] Platelet mean volume (Bld) [Entitic vol] 6.0 fL Low 6.6-10.5 [facility] Comment on above: Performed By: #### A DIFF, CBC, ANEU #### [place] [address] RBC 2.70 10 6/mcL Low 4.10-5.30 [facility] Comment on above: Performed By: #### A DIFF, CBC, ANEU #### [place] [address] WBC 8.7 10 3/mcL Normal 4.5-10.8 [facility] Comment on above: Performed By: #### A DIFF, CBC, ANEU #### [place] [address] LABORATORYOrdered By: SYSTEM SYSTEM on 02-23-2025 Basophils (Bld) [#/Vol] 0.0 103/mcL Normal 0.0 - 0.3 10^3/mcL AH Workflow SS Basophils/100 WBC (Bld) 0.1 % Normal 0.0 - 2.5 % AH Workflow SS Eosinophils (Bld) [#/Vol] 0.0 103/mcL Normal 0.0 - 0.7 10^3/mcL AH Workflow SS Eosinophils/100 WBC (Bld) 0.4 % Normal 0.0 - 6.0 % AH Workflow SS Erythrocyte distribution width (RBC) [Ratio] 15.2 % Normal 11.5 - 15.5 % AH Workflow SS Hematocrit (Bld) [Volume fraction] 23.3 % Low 34.0 - 46.0 % Workflow SS Hemoglobin (Bld) [Mass/Vol] 7.7 G/dL Low 12.0 - 16.0 G/dL AH Workflow SS Lymphocytes (Bld) [#/Vol] 2.5 103/mcL Normal 0.9 - 4.3 10^3/mcL Workflow SS Lymphocytes/100 WBC (Bld) 28.9 % Normal 20.0 - 40.0 % AH Workflow SS MCH (RBC) [Entitic mass] 28.5 pg Normal 27.0 - 33.0 pg AH Workflow SS MCHC 33.1 G/dL Normal 32.0 - 36.0 G/dL AH Workflow SS MCV (RBC) [Entitic vol] 86.3 fL Normal 80.0 - 99.0 fL AH Workflow SS Monocytes (Bld) [#/Vol] 0.7 103/mcL Normal 0.1 - 1.4 10^3/mcL Workflow SS Monocytes/100 WBC (Bld) 7.8 % Normal 2.0 - 13.0 % AH Workflow SS Neutrophils (Bld) [#/Vol] 5.5 103/mcL Normal 2.3 - 8.1 10^3/mcL Workflow SS Neutrophils/100 WBC (Bld) 62.8 % Normal 50.0 - 75.0 % AH Workflow SS Platelet mean volume (Bld) [Entitic vol] 6.0 fL Low 6.6 - 10.5 fL AH Workflow SS Platelets (Bld) [#/Vol] 323 103/mcL Normal 150 - 450 10^3/mcL Workflow SS RBC (Bld) [#/Vol] 2.70 106/mcL Low 4.10 - 5.3 0 10^6/mcL Workflow SS WBC (Bld) [#/Vol] 8.7 103/mcL Normal 4.5 - 10.8 10^3/mcL Workflow SS .Auto Diffon 02-22-2025 Basophil, Absolute 0.0 10 3/mcL Normal 0.0-0.3 [facility] Comment on above: Performed By: #### R BCP #### [facility] [address] [place] [address] Basophils/100 WBC (Bld) 0.1 % Normal 0.0-2.5 [facility] Comment on above: Performed By: #### R BCP #### [address] [address] Eosinophil, Absolute 0.0 10 3/mcL Normal 0.0-0.7 [facility] Comment on above: Performed By: #### R BCP #### [address] [address] Eosinophils/100 WBC (Bld) 0.0 % Normal 0.0-6.0 [facility] Comment on above: Performed By: #### R BCP #### [address] [address] Lymphocyte, Absolute 2.1 10 3/mcL Normal 0.9-4.3 [facility] Comment on above: Performed By: #### R BCP #### [address] [address] Lymphocytes/100 WBC (Bld) 18.4 % Low 20.0-40.0 [facility] Comment on above: Performed By: #### R BCP #### [address] [address] Monocyte, Absolute 0.7 10 3/mcL Normal 0.1-1.4 [facility] Comment on above: Performed By: #### R BCP #### [address] [address] Monocytes/100 WBC (Bld) 6.3 % Normal 2.0-13.0 [facility] Comment on above: Performed By: #### R BCP #### [address] [address] Neutrophils/100 WBC (Bld) 75.2 % High 50.0-75.0 [facility] Comment on above: Performed By: #### R BCP #### [address] [address] .NEUABSon 02-22-2025 Neutrophil, Absolute 8.4 10 3/mcL High 2.3-8.1 [facility] Comment on above: Performed By: #### R BCP #### [address] [address] CBCon 02-22-2025 Erythrocyte distribution width (RBC) [Ratio] 14.7 % Normal 11.5-15.5 [facility] Comment on above: Performed By: #### R BCP #### [place] [address] Hematocrit (Bld) [Volume fraction] 24.0 % Low 34.0-46.0 [facility] Comment on above: Performed By: #### R BCP #### [place] [address] Hgb 8.1 G/dL Low 12.0-16.0 [facility] Comment on above: Performed By: #### R BCP #### [place] [address] MCH (RBC) [Entitic mass] 28.8 pg Normal 27.0-33.0 [facility] Comment on above: Performed By: #### R BCP #### [place] [address] MCHC 33.7 G/dL Normal 32.0-36.0 [facility] Comment on above: Performed By: #### R BCP #### [place] [address] MCV (RBC) [Entitic vol] 85.4 fL Normal 80.0-99.0 [facility] Comment on above: Performed By: #### R BCP #### [place] [address] Platelet 322 10 3/mcL Normal 150-450 [facility] Comment on above: Performed By: #### R BCP #### [place] [address] Platelet mean volume (Bld) [Entitic vol] 6.3 fL Low 6.6-10.5 [facility] Comment on above: Performed By: #### R BCP #### [place] [address] RBC 2.81 10 6/mcL Low 4.10-5.30 [facility] Comment on above: Performed By: #### R BCP #### [place] [address] WBC 11.2 10 3/mcL High 4.5-10.8 [facility] Comment on above: Performed By: #### R BCP #### [place] [address] CTPCRon 02-22-[address] C[address]achomatis Interp See CT Interp N Normal See CT Interp N [facility] Comment on above: Result Comment: Clinical Interpretation: C. trachomatis DNA not detected. Specimen is presumptive negative for C. trachomatis. A negative result does not preclude C. trachomatis infection because results depend on adequate specimen collection, absence of inhibitors, and sufficient DNA to be detected. Performed By: #### G BSPCR, NGPCR1, CTPCR #### [place] [address] C.trachomatis PCR Negative Normal Negative [facility] Comment on above: Result Comment: Mole cular (PCR) assay performed on the Rhianna Manoj 4800 system. Performed By: #### G BSPCR, NGPCR1, CTPCR #### [place] [address] Chlam Source Cervix Normal [facility] Comment on above: Performed By: #### G BSPCR, NGPCR1, CTPCR #### [place] [address] GBSPCRon 02-22-2025 Group B Strep (PCR) Negative Normal Negative [facility] Comment on above: Order Comment: Rogelio cifuentes the incubator, person up front in accession forgot to log specimen in yesterday, time and date written on specimenSpecimen not received in Micro, spoke with Shreya GOULD (LDRP), she state she'd speak with the ordering physician about whether it would need to be recollected, after they were done with their meeting at noon 02/22/2025 09:02:01 EDT JL Result Comment: Note s [id number] Performed By: #### R BCP #### [place] [address] Group B Strep PCR Int See Below [facility]IN Comment on above: Order Comment: Rogelio dong n the incubator, person up front in accession forgot to log specimen in yesterday, time and date written on specimenSpecimen not received in Micro, spoke with Shreya GOULD (LDRP), she state she'd speak with the ordering physician about whether it would need to be recollected, after they were done with their meeting at noon 02/22/2025 09:02:01 EDT JL Result Comment: Clinical Interpretation: Group B Streptococcus DNA not detected by Real-Time Polymerase Chain Reaction (PCR). A negative result does rule out the possibility of Group B Streptococcus. False Negative results may occur when Group B Streptococcus concentration is below the level of detection. If the patient has signs or symptoms of infection, other laboratory tests and clinical information should be used to confirm the negative result. This test is not intended to differentiate carriers of Group B Streptococcus from those with Streptococcus disease. Performed By: #### R [facility] #### [place] [address] LABORATORYOrdered By: SYSTEM SYSTEM on 02-22-2025 Basophils (Bld) [#/Vol] 0.0 103/mcL Normal 0.0 - 0.3 10^3/mcL AH Workflow SS Basophils/100 WBC (Bld) 0.1 % Normal 0.0 - 2.5 % AH Workflow SS Eosinophils (Bld) [#/Vol] 0.0 103/mcL Normal 0.0 - 0.7 10^3/mcL AH Workflow SS Eosinophils/100 WBC (Bld) 0.0 % Normal 0.0 - 6.0 % AH Workflow SS Erythrocyte distribution width (RBC) [Ratio] 14.7 % Normal 11.5 - 15.5 % AH Workflow SS Hematocrit (Bld) [Volume fraction] 24.0 % Low 34.0 - 46.0 % AH Workflow SS Hemoglobin (Bld) [Mass/Vol] 8.1 G/dL Low 12.0 - 16.0 G/dL AH Workflow SS Lymphocytes (Bld) [#/Vol] 2.1 103/mcL Normal 0.9 - 4.3 10^3/mcL AH Workflow SS Lymphocytes/100 WBC (Bld) 18.4 % Low 20.0 - 40.0 % AH Workflow SS MCH (RBC) [Entitic mass] 28.8 pg Normal 27.0 - 33.0 pg AH Workflow SS MCHC 33.7 G/dL Normal 32.0 - 36.0 G/dL AH Workflow SS MCV (RBC) [Entitic vol] 85.4 fL Normal 80.0 - 99.0 fL AH Workflow SS Monocytes (Bld) [#/Vol] 0.7 103/mcL Normal 0.1 - 1.4 10^3/mcL AH Workflow SS Monocytes/100 WBC (Bld) 6.3 % Normal 2.0 - 13.0 % AH Workflow SS Neutrophils (Bld) [#/Vol] 8.4 103/mcL High 2.3 - 8.1 10^3/mcL AH Workflow SS Neutrophils/100 WBC (Bld) 75.2 % High 50.0 - 75.0 % AH Workflow SS Platelet mean volume (Bld) [Entitic vol] 6.3 fL Low 6.6 - 10.5 fL AH Workflow SS Platelets (Bld) [#/Vol] 322 103/mcL Normal 150 - 450 10^3/mcL Workflow SS RBC (Bld) [#/Vol] 2.81 106/mcL Low 4.10 - 5.3 0 10^6/mcL Workflow SS WBC (Bld) [#/Vol] 11.2 103/mcL High 4.5 - 10.8 10^3/mcL Workflow SS [id number] 02-22-2025 GC PCR Source Cervix Normal [facility] Comment on above: Performed By: #### G BSPCR, NGPCR1, CTPCR #### [place] [address] N. gonorrhoeae (PCR) Negative Normal Negative [facility] Comment on above: Result Comment: Mole cular (PCR) assay performed on the Rhianna Manoj 4800 System. Performed By: #### G BSPCR, NGPCR1, CTPCR #### [place] [address] N. gonorrhoeae Interp See NG Interp N Normal See NG Interp N [facility] Comment on above: Result Comment: Clinical Interpretation: N. gonorrhoeae DNA not detected. Specimen is presumptive negative for N. gonorrhoeae. A negative result does not preclude Neisseria gonorrhoeae infection because results depend on adequate specimen collection, absence of inhibitors, and sufficient DNA to be detected. Performed By: #### G BSPCR, NGPCR1, CTPCR #### [place] [id number] .Auto Diffon 02-21-2025 Basophil, Absolute 0.0 10 3/mcL Normal 0.0-0.3 [facility] Comment on above: Performed By: #### C BC, ANEU, ADIFF #### [address] [address] Basophils/100 WBC (Bld) 0.1 % Normal 0.0-2.5 [facility] Comment on above: Performed By: #### C BC, ANEU, ADIFF #### [address] [address] Eosinophil, Absolute 0.0 10 3/mcL Normal 0.0-0.7 [facility] Comment on above: Performed By: #### C BC, ANEU, ADIFF #### [address] [address] Eosinophils/100 WBC (Bld) 0.0 % Normal 0.0-6.0 [facility] Comment on above: Performed By: #### C BC, ANEU, ADIFF #### [address] [address] Lymphocyte, Absolute 1.2 10 3/mcL Normal 0.9-4.3 [facility] Comment on above: Performed By: #### C BC, ANEU, ADIFF #### [address] [address] Lymphocytes/100 WBC (Bld) 8.4 % Low 20.0-40.0 [facility] Comment on above: Performed By: #### C BC, ANEU, ADIFF #### [address] [address] Monocyte, Absolute 0.2 10 3/mcL Normal 0.1-1.4 [facility] Comment on above: Performed By: #### C BC, ANEU, ADIFF #### [address] [address] Monocytes/100 WBC (Bld) 1.7 % Low 2.0-13.0 [facility] Comment on above: Performed By: #### C BC, ANEU, ADIFF #### [address] [address] Neutrophils/100 WBC (Bld) 89.8 % High 50.0-75.0 [facility] Comment on above: Performed By: #### C BC, NANCY, ADIFF #### [address] [address] Basophil, Absolute 0.0 10 3/mcL Normal 0.0-0.3 [facility] Comment on above: Performed By: #### R BCP #### [address] [address] Basophils/100 WBC (Bld) 0.3 % Normal 0.0-2.5 [facility] Comment on above: Performed By: #### R BCP #### [address] [address] Eosinophil, Absolute 0.0 10 3/mcL Normal 0.0-0.7 [facility] Comment on above: Performed By: #### R BCP #### [address] [address] Eosinophils/100 WBC (Bld) 0.6 % Normal 0.0-6.0 [facility] Comment on above: Performed By: #### R BCP #### [address] [address] Lymphocyte, Absolute 1.8 10 3/mcL Normal 0.9-4.3 [facility] Comment on above: Performed By: #### R BCP #### [address] [address] Lymphocytes/100 WBC (Bld) 22.3 % Normal 20.0-40.0 [facility] Comment on above: Performed By: #### R BCP #### [address] [address] Monocyte, Absolute 0.4 10 3/mcL Normal 0.1-1.4 [facility] Comment on above: Performed By: #### R BCP #### [address] [address] Monocytes/100 WBC (Bld) 4.7 % Normal 2.0-13.0 [facility] Comment on above: Performed By: #### R BCP #### [address] [address] Neutrophils/100 WBC (Bld) 72.1 % Normal 50.0-75.0 [facility] Comment on above: Performed By: #### R BCP #### [address] [address] .NEUABSon 02-21-2025 Neutrophil, Absolute 12.5 10 3/mcL High 2.3-8.1 [place] [facility] Comment on above: Performed By: #### C BC ANEU, ADIFF #### [address] [address] Neutrophil, Absolute 5.9 10 3/mcL Normal 2.3-8.1 [facility] Comment on above: Performed By: #### R BCP #### [place] [id number] ABO/Rh (Gel)on 02-21-2025 ABO/Rh Interp AB POS Invalid Interpretation Code [facility] Comment on above: Performed By: #### R BCP #### [place] [id number] ABS (Gel)on 02-21-2025 ABSC Interp (Gel) Negative Normal [facility] Comment on above: Performed By: #### R BCP #### [address] [address] CBCon 02-21-2025 Erythrocyte distribution width (RBC) [Ratio] 15.3 % Normal 11.5-15.5 [facility] Comment on above: Performed By: #### C BC ANEU, ADIFF #### [address] [address] Hematocrit (Bld) [Volume fraction] 27.9 % Low 34.0-46.0 [facility] Comment on above: Performed By: #### C BC ANEU, ADIFF #### [address] [address] Hgb 9.3 G/dL Low 12.0-16.0 [facility] Comment on above: Performed By: #### C BC ANEU, ADIFF #### [place] [id number] MCH (RBC) [Entitic mass] 28.3 pg Normal 27.0-33.0 [facility] Comment on above: Performed By: #### C NANCY MA, ADIFF #### [place] [address] MCHC 33.3 G/dL Normal 32.0-36.0 [facility] Comment on above: Performed By: #### C NANCY MA, ADIFF #### [place] [address] MCV (RBC) [Entitic vol] 85.0 fL Normal 80.0-99.0 [facility] Comment on above: Performed By: #### C NANCY MA, ADIFF #### [place] [address] Platelet 337 10 3/mcL Normal 150-450 [facility] Comment on above: Performed By: #### C NANCY MA, ADIFF #### [place] [address] Platelet mean volume (Bld) [Entitic vol] 6.0 fL Low 6.6-10.5 [facility] Comment on above: Performed By: #### C NANCY MA, ADIFF #### [place] [address] RBC 3.29 10 6/mcL Low 4.10-5.30 [facility] Comment on above: Performed By: #### C NANCY MA, ADIFF #### [place] [address] WBC 13.9 10 3/mcL High 4.5-10.8 [facility] Comment on above: Performed By: #### C NANCY MA, ADIFF #### [place] [address] Erythrocyte distribution width (RBC) [Ratio] 15.3 % Normal 11.5-15.5 [facility] Comment on above: Performed By: #### R BCP #### [place] [address] Hematocrit (Bld) [Volume fraction] 26.2 % Low 34.0-46.0 [facility] Comment on above: Performed By: #### R BCP #### [place] [address] Hgb 8.8 G/dL Low 12.0-16.0 [facility] Comment on above: Performed By: #### R BCP #### [place] [address] MCH (RBC) [Entitic mass] 28.8 pg Normal 27.0-33.0 [facility] Comment on above: Performed By: #### R BCP #### [place] [address] MCHC 33.5 G/dL Normal 32.0-36.0 [facility] Comment on above: Performed By: #### R BCP #### [place] [address] MCV (RBC) [Entitic vol] 85.9 fL Normal 80.0-99.0 [facility] Comment on above: Performed By: #### R BCP #### [place] [address] Platelet 327 10 3/mcL Normal 150-450 [facility] Comment on above: Performed By: #### R BCP #### [place] [address] Platelet mean volume (Bld) [Entitic vol] 6.1 fL Low 6.6-10.5 [facility] Comment on above: Performed By: #### R BCP #### [place] [address] RBC 3.05 10 6/mcL Low 4.10-5.30 [facility] Comment on above: Performed By: #### R BCP #### [place] [address] WBC 8.1 10 3/mcL Normal 4.5-10.8 [facility] Comment on above: Performed By: #### R BCP #### [place] [address] LABORATORYOrdered By: SYSTEM SYSTEM on 02-21-2025 Basophils (Bld) [#/Vol] 0.0 103/mcL Normal 0.0 - 0.3 10^3/mcL AH Workflow SS Basophils/100 WBC (Bld) 0.1 % Normal 0.0 - 2.5 % AH Workflow SS Eosinophils (Bld) [#/Vol] 0.0 103/mcL Normal 0.0 - 0.7 10^3/mcL AH Workflow SS Eosinophils/100 WBC (Bld) 0.0 % Normal 0.0 - 6.0 % AH Workflow SS Erythrocyte distribution width (RBC) [Ratio] 15.3 % Normal 11.5 - 15.5 % AH Workflow SS Hematocrit (Bld) [Volume fraction] 27.9 % Low 34.0 - 46.0 % AH Workflow SS Hemoglobin (Bld) [Mass/Vol] 9.3 G/dL Low 12.0 - 16.0 G/dL AH Workflow SS Lymphocytes (Bld) [#/Vol] 1.2 103/mcL Normal 0.9 - 4.3 10^3/mcL AH Workflow SS Lymphocytes/100 WBC (Bld) 8.4 % Low 20.0 - 40.0 % AH Workflow SS MCH (RBC) [Entitic mass] 28.3 pg Normal 27.0 - 33.0 pg AH Workflow SS MCHC 33.3 G/dL Normal 32.0 - 36.0 G/dL AH Workflow SS MCV (RBC) [Entitic vol] 85.0 fL Normal 80.0 - 99.0 fL AH Workflow SS Monocytes (Bld) [#/Vol] 0.2 103/mcL Normal 0.1 - 1.4 10^3/mcL AH Workflow SS Monocytes/100 WBC (Bld) 1.7 % Low 2.0 - 13.0 % AH Workflow SS Neutrophils (Bld) [#/Vol] 12.5 103/mcL High 2.3 - 8.1 10^3/mcL AH Workflow SS Neutrophils/100 WBC (Bld) 89.8 % High 50.0 - 75.0 % AH Workflow SS Platelet mean volume (Bld) [Entitic vol] 6.0 fL Low 6.6 - 10.5 fL AH Workflow SS Platelets (Bld) [#/Vol] 337 103/mcL Normal 150 - 450 10^3/mcL AH Workflow SS RBC (Bld) [#/Vol] 3.29 106/mcL Low 4.10 - 5.3 0 10^6/mcL AH Workflow SS WBC (Bld) [#/Vol] 13.9 103/mcL High 4.5 - 10.8 10^3/mcL AH Workflow SS LABORATORYOrdered By: Marina Ross on 02-21-2025 RBC Product Ready RBC Ready for Pickup (02/21/25 10:49 AM) Normal AH BB Manual SS LABORATORYOrdered By: Kate Bower on 02-21-2025 C. trachomatis DNA DARREN+probe Ql (Unsp spec) Negative 5 (02/21/25 9:27 AM) Normal Negative Auto Viro/Sero SS Comment on above: Interpretive Data: M olecular (PCR) assay performed on the Rhianna Manoj 4800 system. C. trachomatis DNA DARREN+probe Ql (Unsp spec) See CT Interp N 6 (02/21/25 9:27 AM) Normal See CT Interp N Auto Viro/Sero SS Comment on above: Result Comment: Clinical Interpretation: C. trachomatis DNA not detected. Specimen is presumptive negative for C. trachomatis. A negative result does not preclude C. trachomatis infection because results depend on adequate specimen collection, absence of inhibitors, and sufficient DNA to be detected. N. gonorrhoeae DNA DARREN+probe Ql (Unsp spec) See NG Interp N 7 (02/21/25 9:27 AM) Normal See NG Interp N Auto Viro/Sero SS Comment on above: Result Comment: Clinical Interpretation: N. gonorrhoeae DNA not detected. Specimen is presumptive negative for N. gonorrhoeae. A negative result does not preclude Neisseria gonorrhoeae infection because results depend on adequate specimen collection, absence of inhibitors, and sufficient DNA to be detected. N. gonorrhoeae DNA DARREN+probe Ql (Unsp spec) Negative 4 (02/21/25 9:27 AM) Normal Negative Auto Viro/Sero SS Comment on above: Interpretive Data: M olecular (PCR) assay performed on the [employer] Manoj 4800 System. LABORATORYOrdered By: aFdy Campbell on 02-21-2025 S. agalactiae DNA DARREN+probe Ql (Unsp spec) Negative 2 (02/21/25 9:27 AM) Normal Negative Auto Viro/Sero SS Comment on above: Result Comment: [place] [id number] S. agalactiae DNA DARREN+probe Ql (Vag+Rectum) See Below 1 *NA* (02/21/25 9:27 AM) Invalid Interpretation Code AH Auto Viro/Sero SS Comment on above: Result Comment: Clinical Interpretation: Group B Streptococcus DNA not detected by Real-Time Polymerase Chain Reaction (PCR). A negative result does rule out the possibility of Group B Streptococcus. False Negative results may occur when Group B Streptococcus concentration is below the level of detection. If the patient has signs or symptoms of infection, other laboratory tests and clinical information should be used to confirm the negative result. This test is not intended to differentiate carriers of Group B Streptococcus from those with Streptococcus disease. LABORATORYOrdered By: Madison rucker on 02-21-2025 ABO and Rh group Nom (Bld) AB positive (02/21/25 8:52 AM) [facility] Group B Strep, External Unknown (02/21/25 8:52 AM) [facility] Hepatitis B Date Performed [id number] [facility] Hepatitis B, External Negative (02/21/25 8:52 AM) [facility] HIV Antibodies, External Unknown (02/21/25 8:52 AM) [facility] RPR, External Nonreactive (02/21/25 8:52 AM) [facility] Rubella, External Nonimmune (02/21/25 8:52 AM) [facility] LABORATORYOrdered By: Gary Warner on 02-21-2025 ABO and Rh group Nom (Bld) Blood group AB Rh(D) positive Invalid Interpretation Code AH BB Auto SS Blood group antibody screen Ql Negative ABSC (02/21/25 8:50 AM) Normal AH BB Auto SS LABORATORYOrdered By: Eleuterio Gallardo on 02-21-2025 Reagin Ab RPR Ql (S) Non-Reactive 3 (02/21/25 8:50 AM) Normal Non-Reactive AH Man Viro/Sero SS Comment on above: Interpretive Data: T he RPR test is a non-treponemal assay useful as an aid in the diagnosis of primary and secondary syphilis. It converts to positive generally within 2 weeks after the appearance of a lesion. This test is also useful for monitoring response to antibiotic therapy. A positive RPR screening test will be followed by the FTA ABS test. False positive RPR tests may occur in 1) patients with underlying autoimmune disorders, 2) elderly patients, 3) , and 4) other conditions with abnormal serum globulins. Laboratory - Specimen inform ationOrdered By: Lexii Bower on 02-21-2025 Specimen source Nom (Unsp spec) Cervix (02/21/25 9:27 AM) Normal AH Auto Viro/Sero SS RBC (Product)on 02-21-2025 RBC Product Ready RBC Ready for Pickup Normal [facility] MA[facility] Comment on above: Performed By: #### R BCP #### [place] [address] RPRon 02-21-2025 Reagin Ab RPR Ql (S) Non-Reactive Normal Non-Reactive [facility] MAIN Comment on above: Result Comment: The RPR test is a non-treponemal assay useful as an aid in the diagnosis of primary and secondary syphilis. It converts to positive generally within 2 weeks after the appearance of a lesion. This test is also useful for monitoring response to antibiotic therapy. A positive RPR screening test will be followed by the FTA ABS test. False positive RPR tests may occur in 1) patients with underlying autoimmune disorders, 2) elderly patients, 3) , and 4) other conditions with abnormal serum globulins. Performed By: #### R BCP #### [address] [address] Absolute lymphocyte countOrd ered By: Yoanna Tejdea on 02-18-2025 Lymphocytes Auto (Unsp spec) [#/Vol] 1.42 10*3/uL 0.83-4.51 [facility] Absolute neutrophil countOrd ered By: Yoanna Tejeda on 02-18-2025 Neutrophils (Bld) [#/Vol] 7.5 10*3/uL 2.0-7.7 [facility] Automated lymphocyte count a s percentage of total leukocytesOrdered By: Yoanna Tejeda on 02-18-2025 Lymphocytes/100 WBC Auto (Unsp spec) 15.0 % Low 19-41 [facility] Basophil percentageOrdered B y: Yoanna Tejeda on 02-18-2025 Basophils/100 WBC (Bld) 0.1 % 0-1 [facility] CBC W/Diff, Automatedon 06-0 -2024 Absolute Lymph 1.42 X10 3/uL Normal 0.83-4.51 [facility] Comment on above: Performed By: #### L 3100.3425, L3400.8000, L7000.0750, L3200.1100, L3200.0500, L5500.0550 #### [facility] Laboratory [address] [place], [address] Absolute Neut 7.5 X10 3/uL Normal 2.0-7.7 [facility] Comment on above: Performed By: #### L 3100.3425, L3400.8000, L7000.0750, L3200.1100, L3200.0500, L5500.0550 #### [facility] [address] [place], [address] Basophils/100 WBC (Bld) 0.1 % Normal 0-1 [facility] Comment on above: Performed By: #### L 3100.3425, L3400.8000, L7000.0750, L3200.1100, L3200.0500, L5500.0550 #### [facility] [address] [place], [address] Eosinophils/100 WBC (Bld) 0.3 % Normal 0-5 [facility] Comment on above: Performed By: #### L 3100.3425, L3400.8000, L7000.0750, L3200.1100, L3200.0500, L5500.0550 #### [facility] [address] [place], [address] Erythrocyte distribution width (RBC) [Ratio] 14.8 % High 11.6-14.6 [facility] Comment on above: Performed By: #### L 3100.3425, L3400.8000, L7000.0750, L3200.1100, L3200.0500, L5500.0550 #### [facility] [address] [place], [address] Hematocrit (Bld) [Volume fraction] 29.6 % Low 37-47 [facility] Comment on above: Performed By: #### L 3100.3425, L3400.8000, L7000.0750, L3200.1100, L3200.0500, L5500.0550 #### [facility] [address] [place], [address] Hemoglobin (Bld) [Mass/Vol] 9.3 g/dL Low 12.0-15.0 [facility] Comment on above: Performed By: #### L 3100.3425, L3400.8000, L7000.0750, L3200.1100, L3200.0500, L5500.0550 #### [facility] [address] [place], [address] IG% 0.400 Normal 0.0-0.9 [facility] Comment on above: Result Comment: IG% - Immature Granulocytes (promyelocytes, myelocytes and metamyelocytes) > 1% indicates that a LEFT SHIFT is Present. Performed By: #### L 3100.3425, L3400.8000, L7000.0750, L3200.1100, L3200.0500, L5500.0550 #### [facility] [address] [place], [address] Lymphocytes/100 WBC (Bld) 15.0 % Low 19-41 [facility] Comment on above: Performed By: #### L 3100.3425, L3400.8000, L7000.0750, L3200.1100, L3200.0500, L5500.0550 #### [facility] [address] [place], [address] MCH (RBC) [Entitic mass] 28.4 pg Normal 27.0-32.0 [facility] Comment on above: Performed By: #### L 3100.3425, L3400.8000, L7000.0750, L3200.1100, L3200.0500, L5500.0550 #### [facility] [address] [place], [address] MCHC (RBC) [Mass/Vol] 31.4 g/dL Low 32-36 [facility] Comment on above: Performed By: #### L 3100.3425, L3400.8000, L7000.0750, L3200.1100, L3200.0500, L5500.0550 #### [facility] [address] [place], [address] MCV (RBC) [Entitic vol] 90.5 fL Normal 81-99 [facility] Comment on above: Performed By: #### L 3100.3425, L3400.8000, L7000.0750, L3200.1100, L3200.0500, L5500.0550 #### [facility] [address] [place], [address] Monocytes/100 WBC (Bld) 4.9 % Normal 0-10 [facility] Comment on above: Performed By: #### L 3100.3425, L3400.8000, L7000.0750, L3200.1100, L3200.0500, L5500.0550 #### [facility] [address] [place], [address] Neutrophils/100 WBC (Bld) 79.3 % High 47-70 [facility] Comment on above: Performed By: #### L 3100.3425, L3400.8000, L7000.0750, L3200.1100, L3200.0500, L5500.0550 #### [facility] [address] [place], [address] Nucleated RBC (Bld) [#/Vol] 0 10*3/uL Normal 0-5 [facility] Comment on above: Performed By: #### L 3100.3425, L3400.8000, L7000.0750, L3200.1100, L3200.0500, L5500.0550 #### [facility] [address] [place], [address] Platelet mean volume (Bld) [Entitic vol] 7.7 fL Normal 6.2-12.0 [facility] Comment on above: Performed By: #### L 3100.3425, L3400.8000, L7000.0750, L3200.1100, L3200.0500, L5500.0550 #### [facility] [address] [place], [address] Platelets (Bld) [#/Vol] 284 10*3/uL Normal 150-450 [facility] Comment on above: Performed By: #### L 3100.3425, L3400.8000, L7000.0750, L3200.1100, L3200.0500, L5500.0550 #### [facility] [address] [place], [address] RBC (Bld) [#/Vol] 3.27 10*6/uL Low 4.2-5.4 [facility] Comment on above: Performed By: #### L 3100.3425, L3400.8000, L7000.0750, L3200.1100, L3200.0500, L5500.0550 #### [facility] [address] [place], [address] RDW SD 49.6 fl High 35.1-43.9 [facility] Comment on above: Performed By: #### L 3100.3425, L3400.8000, L7000.0750, L3200.1100, L3200.0500, L5500.0550 #### [facility] [address] [place], [address] WBC (Bld) [#/Vol] 9.4 10*3/uL Normal 4.4-11.0 [facility] Comment on above: Performed By: #### L 3100.3425, L3400.8000, L7000.0750, L3200.1100, L3200.0500, L5500.0550 #### [facility] Laboratory [address] [place], [place], [address] Eosinophil percentageOrdered By: Yoanna Tejeda on 02-18-2025 Eosinophils/100 WBC (Bld) 0.3 % 0-5 [facility] Erythrocyte distribution wid th ratioOrdered By: Yoanna Tejeda on 02-18-2025 Erythrocyte distribution width (RBC) [Ratio] 14.8 % High 11.6-14.6 [facility] Erythrocyte distribution wid th standard deviationOrdered By: Yoanna Tejeda on 02-18-2025 Erythrocyte distribution width (RBC) [Ratio] 49.6 fl High 35.1-43.9 [facility] Gastroenterology Visit Repor ton 02-18-2025 Gastroenterology Visit Report [facility] [address] [place] [address] OFFICE VISIT Date of Service: 02/18/25 MR#: [id number] Acct: [id number] Name: SHERI SOUTH Rep #: [id number] : 1990 Provider: PHIL alberto Age/Sex: 34/F Location: [facility] Status: Signed Intake Vital Signs 01/31/25 11:16 02/18/25 10:50 Height 5 ft 3 in 5 ft 3 in Weight: 192 lb 6 oz 196 lb 6 oz BMI 34.0 34.7 BP 114/79 115/78 Respiration 18 18 Pulse 78 86 Pulse Oximetry (%) 98 98 Oxygen Delivery Method room air room air Intake Visit Reasons: 3 WK FU Chief Complaint: crohn's flare J2Ee Architect Required: No Accompanied by: Self Is patient in pain?: No Allergies mesalamine Adverse Reaction (Intermediate, Verified 02/18/25 10:49) Diarrhea Medications ???Medication ???Instructions ???Recorded ???Confirmed ???Type adalimumab 40 mg/0.4 mL 40 mg subcut Q2W 01/11/25 02/18/25 History subcutaneous syringe kit (Humira(CF)) [id number] 18 mg-folic 1 tab PO DAILY 01/11/25 02/18/25 History 400 mcg-vit K1 120 mcg-herbal tablet Mikalers Herbal Iron 1 cap PO BID 01/13/25 02/18/25 His tory ascorbic acid (vitamin C) 500 mg 500 mg PO BID 01/13/25 02/18/25 Hi story chewable tablet (Acerola C) pantoprazole 40 mg tablet,delayed 40 mg PO QDAY #90 tabs 01/14/25 0 02/18/25 Rx release prednisone 20 mg tablet 60 mg (3 x 20 mg) PO QDAY #90 tabs 01/14/25 02/18/25 Rx prednisone 5 mg tablet 5 mg PO .COMPLEX #50 tabs 02/18/25 02/18/25 Rx PFSH Medical History 29 weeks gestation of delivery delivered Abscess Blood transfusion, without reported diagnosis Social History household members: spouse and children Smoking Status: Never smoker alcohol intake: never substance use type: does not use hubert/lutheran: Mennonite HPI HPI Chief Complaint: crohn's flare Details: CT abdomen and pelvis 08/23/2023 Focal fatty infiltration of the liver Calcified stone within the gallbladder Diffuse nonspecific colitis, the differential includes infectious versus inflammatory CT abdomen and pelvis 11/07/2023 Fatty infiltration of the liver Calcified stone in the gallbladder There is diffuse thickening and pericolonic increased vascularity throughout the colon from the cecum to the rectum in a patient with a history of ulcerative colitis, this is consistent with inflammatory bowel disease Fat-containing umbilical hernia Diffuse colitis, this may be infectious or inflammatory colitis, however in a patient with a history of UC most likely represents IBD Low attenuating lesion in the left lobe of the liver Possibly representing focal fatty infiltration consider MRI Gallstones CT abdomen and pelvis 02/21/2024 Focal fatty infiltration of the liver Calcified stone in the gallbladder There is diffuse mild thickening of the colonic wall with mild pericolonic increased vascularity Fat-containing umbilical hernia Air in stranding in the left perianal soft tissues highly suspicious for necrotizing fasciitis - 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 Prior to presenting she had been treated for cellulitis of BLE. On admission she was found to be anemic with a hemoglobin of 6.1 and leukocytosis with a WBC of 22.2. CTE 06/13/2024 Unremarkable small bowel including terminal ileum with intraluminal fecal material noted in the ascending colon. Bowel wall thickening, mucosal enhancement and hyperemia seen extending from proximal transverse colon all the way up to the distal rectum, likely representing ulcerative colitis. Tissue diagnosis recommended. No evidence of bowel obstruction or stricture identified on current juncture. Focal area of wall thickening of the anterior bladder wall with associated perivascular fat stranding. Given the pancolitis described in previous colonoscopy reports, unable to completely exclude prior fistulization of the sigmoid colon with the bladder in this area. Can Whipple with outside imaging is strongly recommended. 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 However further evaluation with serum I IgG4 level is recommended Findings favored to represent postsurgical changes related to I D of the perianal region/left perineum. No localized fluid collection Colonoscopy 04/26/2024 Moderate erythematous, granular mucosa with loss of vascular pattern in the terminal ileum; performed biopsies to rule out IBD Erythematous, granular mucosa with loss of vascular pattern (more content not included)... Normal [facility] Hematocrit Auto (Bld) [Volum e fraction]Ordered By: Yoanna Tejeda on 02-18-2025 Hematocrit (Bld) [Volume fraction] 29.6 % Low 37-47 [facility] Hemoglobin measurementOrdere d By: Yoanna Tejeda on 02-18-2025 Hemoglobin (Bld) [Mass/Vol] 9.3 g/dL Low 12.0-15.0 [facility] Immature granulocytes/100 WB C Auto (Bld)Ordered By: Yoanna Tejeda on 02-18-2025 Immature granulocytes/100 WBC (Bld) 0.400 % 0.0-0.9 [facility] Comment on above: IG% - Immature Granu locytes (promyelocytes, myelocytes and metamyelocytes) > 1% indicates that a LEFT SHIFT is Present. MCV (mean corpuscular volume ) determinationOrdered By: Yoanna Tejeda on 02-18-2025 MCV (RBC) [Entitic vol] 90.5 fL 81-99 [facility] Mean corpuscular hemoglobin (MCH) determinationOrdered By: Yoanna Tejeda on 02-18-2025 MCH (RBC) [Entitic mass] 28.4 pg 27.0-32.0 [facility] Mean corpuscular hemoglobin concentration (MCHC) determinationOrdered By: Yoanna Tejeda on 02-18-2025 MCHC (RBC) [Mass/Vol] 31.4 g/dL Low 32-36 [facility] Mean platelet volume determi nationOrdered By: Yoanna Tejeda on 02-18-2025 Platelet mean volume (Bld) [Entitic vol] 7.7 fL 6.2-12.0 [facility] Monocyte percentageOrdered B y: Yoanna Tejeda on 02-18-2025 Monocytes/100 WBC (Bld) 4.9 % 0-10 [facility] Neutrophil percentageOrdered By: Yoanna Tejeda on 02-18-2025 Neutrophils/100 WBC (Bld) 79.3 % High 47-70 [facility] Nucleated red blood cell per centageOrdered By: Yoanna Tejeda on 02-18-2025 Nucleated RBC/100 WBC (Bld) [Ratio] 0 % 0-5 [facility] Platelet countOrdered By: Cyrus Tejeda on 02-18-2025 Platelets (Bld) [#/Vol] 284 10*3/uL 150-450 [facility] RBC Auto (Bld) [#/Vol]Ordere d By: Yoanna Tejeda on 02-18-2025 RBC (Bld) [#/Vol] 3.27 10*6/uL Low 4.2-5.4 [facility] White blood cell (WBC) count Ordered By: Yoanna Tejeda on 02-18-2025 WBC (Bld) [#/Vol] 9.4 10*3/uL 4.4-11.0 [facility] Laboratory - Urinalysison Glucose Test strip (U) [Mass/Vol] Negative Normal [facility] Get [facility] For [facility]. Protein Ql (U) Negative Normal [facility].; [facility], [facility]. Laboratory - Urinalysison Glucose Test strip (U) [Mass/Vol] Negative Normal [facility] To Get Approved For [facility].; [facility], [facility]. Protein Ql (U) Negative Normal [facility] To Get [facility]ved For [facility].; [facility], [facility]. Absolute lymphocyte countOrd ered By: Yoanna Tejeda on 02-04-2025 Lymphocytes Auto (Unsp spec) [#/Vol] 1.47 10*3/uL 0.83-4.51 [facility] Absolute neutrophil countOrd ered By: Yoanna Tejeda on 02-04-2025 Neutrophils (Bld) [#/Vol] 9.3 10*3/uL High 2.0-7.7 [facility] Automated lymphocyte count a s percentage of total leukocytesOrdered By: Yoanna Tejeda on 02-04-2025 Lymphocytes/100 WBC Auto (Unsp spec) 13.4 % Low 19-41 [facility] Basophil percentageOrdered B y: Yoanna Tejeda on 02-04-2025 Basophils/100 WBC (Bld) 0.1 % 0-1 [facility] CBC W/Diff, Automatedon 01-17 Absolute Lymph 1.47 X10 3/uL Normal 0.83-4.51 [facility] Comment on above: Performed By: #### L 3100.3425, L3400.8000, L7000.0750, L3200.1100, L3200.0500, L5500.0550 #### [facility] Laboratory [address] [place], [address] Absolute Neut 9.3 X10 3/uL High 2.0-7.7 [facility] Comment on above: Performed By: #### L 3100.3425, L3400.8000, L7000.0750, L3200.1100, L3200.0500, L5500.0550 #### [facility] Laboratory [address] [place], [address] Basophils/100 WBC (Bld) 0.1 % Normal 0-1 [facility] Comment on above: Performed By: #### L 3100.3425, L3400.8000, L7000.0750, L3200.1100, L3200.0500, L5500.0550 #### [facility] Laboratory [address] [place], [address] Eosinophils/100 WBC (Bld) 0.0 % Normal 0-5 [facility] Comment on above: Performed By: #### L 3100.3425, L3400.8000, L7000.0750, L3200.1100, L3200.0500, L5500.0550 #### [facility] Laboratory [address] [place], [address] Erythrocyte distribution width (RBC) [Ratio] 15.3 % High 11.6-14.6 [facility] Comment on above: Performed By: #### L 3100.3425, L3400.8000, L7000.0750, L3200.1100, L3200.0500, L5500.0550 #### [facility] Laboratory [address] [place], [address] Hematocrit (Bld) [Volume fraction] 29.7 % Low 37-47 [facility] Comment on above: Performed By: #### L 3100.3425, L3400.8000, L7000.0750, L3200.1100, L3200.0500, L5500.0550 #### [facility] Laboratory [address] [place], [address] Hemoglobin (Bld) [Mass/Vol] 9.4 g/dL Low 12.0-15.0 [facility] Comment on above: Performed By: #### L 3100.3425, L3400.8000, L7000.0750, L3200.1100, L3200.0500, L5500.0550 #### [facility] Laboratory [address] [place], [address] IG% 1.400 High 0.0-0.9 [facility] Comment on above: Result Comment: IG% - Immature Granulocytes (promyelocytes, myelocytes and metamyelocytes) > 1% indicates that a LEFT SHIFT is Present. Performed By: #### L 3100.3425, L3400.8000, L7000.0750, L3200.1100, L3200.0500, L5500.0550 #### [facility] Laboratory [address] [place], [address] Lymphocytes/100 WBC (Bld) 13.4 % Low 19-41 [facility] Comment on above: Performed By: #### L 3100.3425, L3400.8000, L7000.0750, L3200.1100, L3200.0500, L5500.0550 #### [facility] Laboratory [address] [place], [address] MCH (RBC) [Entitic mass] 28.8 pg Normal 27.0-32.0 [facility] Comment on above: Performed By: #### L 3100.3425, L3400.8000, L7000.0750, L3200.1100, L3200.0500, L5500.0550 #### [facility] Laboratory [address] [place], [address] MCHC (RBC) [Mass/Vol] 31.6 g/dL Low 32-36 [facility] Comment on above: Performed By: #### L 3100.3425, L3400.8000, L7000.0750, L3200.1100, L3200.0500, L5500.0550 #### [facility] Laboratory [address] [place], [address] MCV (RBC) [Entitic vol] 91.1 fL Normal 81-99 [facility] Comment on above: Performed By: #### L 3100.3425, L3400.8000, L7000.0750, L3200.1100, L3200.0500, L5500.0550 #### [facility] Laboratory [address] [place], [address] Monocytes/100 WBC (Bld) 0.8 % Normal 0-10 [facility] Comment on above: Performed By: #### L 3100.3425, L3400.8000, L7000.0750, L3200.1100, L3200.0500, L5500.0550 #### [facility] Laboratory [address] [place], [address] Neutrophils/100 WBC (Bld) 84.3 % High 47-70 [facility] Comment on above: Performed By: #### L 3100.3425, L3400.8000, L7000.0750, L3200.1100, L3200.0500, L5500.0550 #### [facility] Laboratory [address] [place], [address] Nucleated RBC (Bld) [#/Vol] 0 10*3/uL Normal 0-5 [facility] Comment on above: Performed By: #### L 3100.3425, L3400.8000, L7000.0750, L3200.1100, L3200.0500, L5500.0550 #### [facility] Laboratory [address] [place], [address] Platelet mean volume (Bld) [Entitic vol] 8.0 fL Normal 6.2-12.0 [facility] Comment on above: Performed By: #### L 3100.3425, L3400.8000, L7000.0750, L3200.1100, L3200.0500, L5500.0550 #### [facility] Laboratory [address] [place], [address] Platelets (Bld) [#/Vol] 347 10*3/uL Normal 150-450 [facility] Comment on above: Performed By: #### L 3100.3425, L3400.8000, L7000.0750, L3200.1100, L3200.0500, L5500.0550 #### [facility] Laboratory [address] [place], [place], [phone] (221) RBC (Bld) [#/Vol] 3.26 10*6/uL Low 4.2-5.4 [facility] Comment on above: Performed By: #### L 3100.3425, L3400.8000, L7000.0750, L3200.1100, L3200.0500, L5500.0550 #### [facility] Laboratory [address] [place], [place], [id number] (890 RDW SD 50.4 fl High 35.1-43.9 [facility] Comment on above: Performed By: #### L 3100.3425, L3400.8000, L7000.0750, L3200.1100, L3200.0500, L5500.0550 #### [facility] Laboratory [address] [place], [place], [id number] (972) WBC (Bld) [#/Vol] 11.0 10*3/uL Normal 4.4-11.0 [facility] Comment on above: Performed By: #### L 3100.3425, L3400.8000, L7000.0750, L3200.1100, L3200.0500, L5500.0550 #### [facility] Laboratory [address] [place], [place], [id number] (780) Eosinophil percentageOrdered By: Yoanna Tejeda on 02-04-2025 Eosinophils/100 WBC (Bld) 0.0 % 0-5 [facility] Erythrocyte distribution wid th ratioOrdered By: Yoanna Tejeda on 02-04-2025 Erythrocyte distribution width (RBC) [Ratio] 15.3 % High 11.6-14.6 [facility] Erythrocyte distribution wid th standard deviationOrdered By: Yoanna Tejeda on 02-04-2025 Erythrocyte distribution width (RBC) [Ratio] 50.4 fl High 35.1-43.9 [facility] Hematocrit Auto (Bld) [Volum e fraction]Ordered By: Yoanna Tejeda on 02-04-2025 Hematocrit (Bld) [Volume fraction] 29.7 % Low 37-47 [facility] Hemoglobin measurementOrdere d By: Yoanna Tejeda on 02-04-2025 Hemoglobin (Bld) [Mass/Vol] 9.4 g/dL Low 12.0-15.0 [facility] Immature granulocytes/100 WB C Auto (Bld)Ordered By: Yoanna Tejeda on 02-04-2025 Immature granulocytes/100 WBC (Bld) 1.400 % High 0.0-0.9 [facility] Comment on above: IG% - Immature Granu locytes (promyelocytes, myelocytes and metamyelocytes) > 1% indicates that a LEFT SHIFT is Present. MCV (mean corpuscular volume ) determinationOrdered By: Yoanna Tejeda on 02-04-2025 MCV (RBC) [Entitic vol] 91.1 fL 81-99 [facility] Mean corpuscular hemoglobin (MCH) determinationOrdered By: Yoanna Tejeda on 02-04-2025 MCH (RBC) [Entitic mass] 28.8 pg 27.0-32.0 [facility] Mean corpuscular hemoglobin concentration (MCHC) determinationOrdered By: Yoanna Tejeda on 02-04-2025 MCHC (RBC) [Mass/Vol] 31.6 g/dL Low 32-36 [facility] Mean platelet volume determi nationOrdered By: Yoanna Tejeda on 02-04-2025 Platelet mean volume (Bld) [Entitic vol] 8.0 fL 6.2-12.0 [facility] Monocyte percentageOrdered B y: Yoanna Tejeda on 02-04-2025 Monocytes/100 WBC (Bld) 0.8 % 0-10 [facility] Neutrophil percentageOrdered By: Yoanna Tejeda on 02-04-2025 Neutrophils/100 WBC (Bld) 84.3 % High 47-70 [facility] Nucleated red blood cell per centageOrdered By: Yoanna Tejeda on 02-04-2025 Nucleated RBC/100 WBC (Bld) [Ratio] 0 % 0-5 [facility] Platelet countOrdered By: Cyrus Tejeda on 02-04-2025 Platelets (Bld) [#/Vol] 347 10*3/uL 150-450 [facility] RBC Auto (Bld) [#/Vol]Ordere d By: Yoanna Tejeda on 02-04-2025 RBC (Bld) [#/Vol] 3.26 10*6/uL Low 4.2-5.4 [facility] White blood cell (WBC) count Ordered By: Yoanna Tejeda on 02-04-2025 WBC (Bld) [#/Vol] 11.0 10*3/uL 4.4-11.0 [facility] Absolute lymphocyte countOrd ered By: Yoanna Tejeda on 01-31-2025 Lymphocytes Auto (Unsp spec) [#/Vol] 1.78 10*3/uL 0.83-4.51 [facility] Absolute neutrophil countOrd ered By: Yoanna Tejeda on 01-31-2025 Neutrophils (Bld) [#/Vol] 8.2 10*3/uL High 2.0-7.7 [facility] Anion gap in Serum or Plasma Ordered By: Yoanna Tejeda on 01-31-2025 Anion gap [Moles/Vol] 11 mmol/L 01-31 [facility] Automated lymphocyte count a s percentage of total leukocytesOrdered By: Yoanna Tejeda on 01-31-2025 Lymphocytes/100 WBC Auto (Unsp spec) 16.9 % Low 19-41 [facility] BUN/creatinine ratioOrdered By: Yoanna Tejeda on 01-31-2025 Urea nitrogen/Creatinine [Mass ratio] 19.0 mg/mg 10-20 [facility] Basophil percentageOrdered B y: Yoanna Tejeda on 01-31-2025 Basophils/100 WBC (Bld) 0.1 % 0-1 [facility] Bilirubin, totalOrdered By: Yoanna Tejeda on 01-31-2025 Bilirubin [Mass/Vol] 0.31 mg/dL 0.00-1.30 [facility] CBC W/Diff, Automatedon 01-17 Absolute Lymph 1.78 X10 3/uL Normal 0.83-4.51 [facility] Comment on above: Performed By: #### L 3100.3425, L3400.8000, L7000.0750, L3200.1100, L3200.0500, L5500.0550 #### [facility] Laboratory [address] [place], [address] Absolute Neut 8.2 X10 3/uL High 2.0-7.7 [facility] Comment on above: Performed By: #### L 3100.3425, L3400.8000, L7000.0750, L3200.1100, L3200.0500, L5500.0550 #### [facility] Laboratory [address] [place], [address] Basophils/100 WBC (Bld) 0.1 % Normal 0-1 [facility] Comment on above: Performed By: #### L 3100.3425, L3400.8000, L7000.0750, L3200.1100, L3200.0500, L5500.0550 #### [facility] Laboratory [address] [place], [address] Eosinophils/100 WBC (Bld) 0.4 % Normal 0-5 [facility] Comment on above: Performed By: #### L 3100.3425, L3400.8000, L7000.0750, L3200.1100, L3200.0500, L5500.0550 #### [facility] Laboratory [address] [place], [address] Erythrocyte distribution width (RBC) [Ratio] 15.0 % High 11.6-14.6 [facility] Comment on above: Performed By: #### L 3100.3425, L3400.8000, L7000.0750, L3200.1100, L3200.0500, L5500.0550 #### [facility] Laboratory [address] [place], [address] Hematocrit (Bld) [Volume fraction] 30.6 % Low 37-47 [facility] Comment on above: Performed By: #### L 3100.3425, L3400.8000, L7000.0750, L3200.1100, L3200.0500, L5500.0550 #### [facility] Laboratory [address] [place], [address] Hemoglobin (Bld) [Mass/Vol] 9.9 g/dL Low 12.0-15.0 [facility] Comment on above: Performed By: #### L 3100.3425, L3400.8000, L7000.0750, L3200.1100, L3200.0500, L5500.0550 #### [facility] Laboratory [address] [place], [address] IG% 0.900 Normal 0.0-0.9 [facility] Comment on above: Result Comment: IG% - Immature Granulocytes (promyelocytes, myelocytes and metamyelocytes) > 1% indicates that a LEFT SHIFT is Present. Performed By: #### L 3100.3425, L3400.8000, L7000.0750, L3200.1100, L3200.0500, L5500.0550 #### [facility] Laboratory [address] [place], [address] Lymphocytes/100 WBC (Bld) 16.9 % Low 19-41 [facility] Comment on above: Performed By: #### L 3100.3425, L3400.8000, L7000.0750, L3200.1100, L3200.0500, L5500.0550 #### [facility] Laboratory [address] [place], [address] MCH (RBC) [Entitic mass] 29.0 pg Normal 27.0-32.0 [facility] Comment on above: Performed By: #### L 3100.3425, L3400.8000, L7000.0750, L3200.1100, L3200.0500, L5500.0550 #### [facility] Laboratory [address] [place], [address] MCHC (RBC) [Mass/Vol] 32.4 g/dL Normal 32-36 [facility] Comment on above: Performed By: #### L 3100.3425, L3400.8000, L7000.0750, L3200.1100, L3200.0500, L5500.0550 #### [facility] Laboratory [address] [place], [address] MCV (RBC) [Entitic vol] 89.7 fL Normal 81-99 [facility] Comment on above: Performed By: #### L 3100.3425, L3400.8000, L7000.0750, L3200.1100, L3200.0500, L5500.0550 #### [facility] Laboratory [address] [place], [address] Monocytes/100 WBC (Bld) 3.6 % Normal 0-10 [facility] Comment on above: Performed By: #### L 3100.3425, L3400.8000, L7000.0750, L3200.1100, L3200.0500, L5500.0550 #### [facility] Laboratory [address] [place], [address] Neutrophils/100 WBC (Bld) 78.1 % High 47-70 [facility] Comment on above: Performed By: #### L 3100.3425, L3400.8000, L7000.0750, L3200.1100, L3200.0500, L5500.0550 #### [facility] Laboratory [address] [place], [address] Nucleated RBC (Bld) [#/Vol] 0 10*3/uL Normal 0-5 [facility] Comment on above: Performed By: #### L 3100.3425, L3400.8000, L7000.0750, L3200.1100, L3200.0500, L5500.0550 #### [facility] Laboratory [address] [place], [address] Platelet mean volume (Bld) [Entitic vol] 7.9 fL Normal 6.2-12.0 [facility] Comment on above: Performed By: #### L 3100.3425, L3400.8000, L7000.0750, L3200.1100, L3200.0500, L5500.0550 #### [facility] Laboratory [address] [place], [address] Platelets (Bld) [#/Vol] 343 10*3/uL Normal 150-450 [facility] Comment on above: Performed By: #### L 3100.3425, L3400.8000, L7000.0750, L3200.1100, L3200.0500, L5500.0550 #### [facility] Laboratory [address] [place], [address] RBC (Bld) [#/Vol] 3.41 10*6/uL Low 4.2-5.4 [facility] Comment on above: Performed By: #### L 3100.3425, L3400.8000, L7000.0750, L3200.1100, L3200.0500, L5500.0550 #### [facility] Laboratory [address] [place], [address] RDW SD 48.4 fl High 35.1-43.9 [facility] Comment on above: Performed By: #### L 3100.3425, L3400.8000, L7000.0750, L3200.1100, L3200.0500, L5500.0550 #### [facility] Laboratory [address] [place], [address] WBC (Bld) [#/Vol] 10.5 10*3/uL Normal 4.4-11.0 [facility] Comment on above: Performed By: #### L 3100.3425, L3400.8000, L7000.0750, L3200.1100, L3200.0500, L5500.0550 #### [facility] Laboratory [address] [place], [address] CRPon 01-31-2025 C-REACTIVE PROT 32.80 mg/L High 0.0-3.0 [facility] Comment on above: Performed By: #### L 3100.3425, L3400.8000, L7000.0750, L3200.1100, L3200.0500, L5500.0550 #### [facility] Laboratory [address] [place], [address] Carbon dioxide, total [Moles /volume] in Central venous bloodOrdered By: Yoanna Tejeda on 01-31-2025 CO2 [Moles/Vol] 21.4 mmol/L 21.0-32.0 [facility] Chloride assayOrdered By: Cyrus Tejeda on 01-31-2025 Chloride [Moles/Vol] 102 mmol/L 98-108 [facility] Comprehensive Metabolic Prof ilon 01-31-2025 Albumin [Mass/Vol] 3.4 g/dL Low 3.5-5.0 [facility] Comment on above: Performed By: #### L 3100.3425, L3400.8000, L7000.0750, L3200.1100, L3200.0500, L5500.0550 #### [facility] Laboratory [address] [place], [address] Albumin/Globulin [Mass ratio] 0.8 {ratio} Low 0.9-2.4 [facility] Comment on above: Performed By: #### L 3100.3425, L3400.8000, L7000.0750, L3200.1100, L3200.0500, L5500.0550 #### [facility] Laboratory [address] [place], [address] ALK PHOS 82 U/L Normal 35-104 [facility] Comment on above: Performed By: #### L 3100.3425, L3400.8000, L7000.0750, L3200.1100, L3200.0500, L5500.0550 #### [facility] [address] [place], [address] ALT [Catalytic activity/Vol] 11 U/L Normal <=34 [facility] Comment on above: Performed By: #### L 3100.3425, L3400.8000, L7000.0750, L3200.1100, L3200.0500, L5500.0550 #### [facility] [address] [place], [address] AST [Catalytic activity/Vol] 11 U/L Normal <=31 [facility] Comment on above: Performed By: #### L 3100.3425, L3400.8000, L7000.0750, L3200.1100, L3200.0500, L5500.0550 #### [facility] [address] [place], [address] Bilirubin [Mass/Vol] 0.31 mg/dL Normal 0.00-1.30 [facility] Comment on above: Performed By: #### L 3100.3425, L3400.8000, L7000.0750, L3200.1100, L3200.0500, L5500.0550 #### [facility] [address] [place], [address] BUN/CRE 19.0 RATIO Normal 10-20 [facility] Comment on above: Performed By: #### L 3100.3425, L3400.8000, L7000.0750, L3200.1100, L3200.0500, L5500.0550 #### [facility] [address] [place], [address] Calcium [Mass/Vol] 9.0 mg/dL Normal 7.6-11.0 [facility] Comment on above: Performed By: #### L 3100.3425, L3400.8000, L7000.0750, L3200.1100, L3200.0500, L5500.0550 #### [facility] [address] [place], [address] Chloride [Moles/Vol] 102 mmol/L Normal 98-108 [facility] Comment on above: Performed By: #### L 3100.3425, L3400.8000, L7000.0750, L3200.1100, L3200.0500, L5500.0550 #### [facility] [address] [place], [address] CO2 [Moles/Vol] 21.4 mmol/L Normal 21.0-32.0 [facility] Comment on above: Performed By: #### L 3100.3425, L3400.8000, L7000.0750, L3200.1100, L3200.0500, L5500.0550 #### [facility] [address] [place], [address] Creatinine [Mass/Vol] 0.52 mg/dL Low 0.70-1.20 [facility] Comment on above: Performed By: #### L 3100.3425, L3400.8000, L7000.0750, L3200.1100, L3200.0500, L5500.0550 #### [facility] [address] [place], [address] GAP 11 Normal 5-15 [facility] Comment on above: Performed By: #### L 3100.3425, L3400.8000, L7000.0750, L3200.1100, L3200.0500, L5500.0550 #### [facility] [address] [place], [address] GFR/1.73 sq M.predicted among non-blacks MDRD (S/P/Bld) [Vol rate/Area] 126 mL/min/{1.73_m2} Normal >60 [facility] Comment on above: Result Comment: mL/m in/1.73m2 CKD-EPI Creatinine Equation (2020) Performed By: #### L 3100.3425, L3400.8000, L7000.0750, L3200.1100, L3200.0500, L5500.0550 #### [facility] [address] [place], [address] Globulin (S) [Mass/Vol] 4.2 g/dL Normal 2.2-4.2 [facility] Comment on above: Performed By: #### L 3100.3425, L3400.8000, L7000.0750, L3200.1100, L3200.0500, L5500.0550 #### [facility] [address] [place], [address] Glucose [Mass/Vol] 114 mg/dL High 70-99 [facility] Comment on above: Performed By: #### L 3100.3425, L3400.8000, L7000.0750, L3200.1100, L3200.0500, L5500.0550 #### [facility] [address] [place], [address] Potassium [Moles/Vol] 4.1 mmol/L Normal 3.3-5.1 [facility] Comment on above: Performed By: #### L 3100.3425, L3400.8000, L7000.0750, L3200.1100, L3200.0500, L5500.0550 #### [facility] [address] [place], [address] Sodium [Moles/Vol] 134 mmol/L Normal 133-145 [facility] Comment on above: Performed By: #### L 3100.3425, L3400.8000, L7000.0750, L3200.1100, L3200.0500, L5500.0550 #### [facility] [address] [place], [address] T PROT 7.7 g/dL Normal 5.9-8.4 [facility] Comment on above: Performed By: #### L 3100.3425, L3400.8000, L7000.0750, L3200.1100, L3200.0500, L5500.0550 #### [facility] [address] [place], [address] Urea nitrogen [Mass/Vol] 10 mg/dL Normal 4-19 [facility] Comment on above: Performed By: #### L 3100.3425, L3400.8000, L7000.0750, L3200.1100, L3200.0500, L5500.0550 #### [facility] [address] [place], [address] Eosinophil percentageOrdered By: Yoanna Tejeda on 01-31-2025 Eosinophils/100 WBC (Bld) 0.4 % 0-5 [facility] Erythrocyte Sed Rateon 01-31 SED RATE 45 mm/hr High 0-30 [facility] Comment on above: Performed By: #### L 3100.3425, L3400.8000, L7000.0750, L3200.1100, L3200.0500, L5500.0550 #### [facility] [address] [place], [place], [address] Erythrocyte distribution wid th ratioOrdered By: Yoanna Tejeda on 01-31-2025 Erythrocyte distribution width (RBC) [Ratio] 15.0 % High 11.6-14.6 [facility] Erythrocyte distribution wid th standard deviationOrdered By: Yoanna Tejeda on 01-31-2025 Erythrocyte distribution width (RBC) [Ratio] 48.4 fl High 35.1-43.9 [facility] Erythrocyte sedimentation ra teOrdered By: Yoanna Tejeda on 01-31-2025 ESR (Bld) [Velocity] 45 mm/h High 0-30 [facility] Gastroenterology Visit Repor ton 01-31-[address] [facility] [address] [place] [address] OFFICE VISIT Date of Service: 01/31/25 MR#: [id number] Acct: [id number] Name: SHERI SOUTH [place] Rep #: [id number] : 1990 Provider: PHIL alberto Age/Sex: 34/F Location: [facility] Status: Signed Intake Vital Signs 01/11/25 19:33 01/31/25 11:16 Height 5 ft 3 in 5 ft 3 in Weight: 192 lb 6 oz BMI 34.0 BP 114/79 Respiration 18 Pulse 78 Pulse Oximetry (%) 98 Oxygen Delivery Method room air Intake Visit Reasons: HOSP FU Chief Complaint: crohn's flare J2Ee Architect Required: No Accompanied by: Self Is patient in pain?: No Allergies mesalamine Adverse Reaction (Intermediate, Verified 01/31/25 11:10) Diarrhea Medications ???Medication ???Instructions ???Recorded ???Confirmed ???Type adalimumab 40 mg/0.4 mL 40 mg subcut Q2W 01/11/25 01/31/25 History subcutaneous syringe kit (Humira(CF)) [id number] 18 mg-folic 1 tab PO DAILY 01/11/25 01/31/25 History 400 mcg-vit K1 120 mcg-herbal tablet [facility] Iron 1 cap PO BID 01/13/25 01/31/25 His tory ascorbic acid (vitamin C) 500 mg 500 mg PO BID 01/13/25 01/31/25 Hi story chewable tablet (Acerola C) pantoprazole 40 mg tablet,delayed 40 mg PO QDAY #90 tabs 01/14/25 0 01/31/25 Rx release prednisone 20 mg tablet 60 mg (3 x 20 mg) PO QDAY #90 tabs 01/14/25 01/31/25 Rx Nurse's Note: She is feeling better. She completed labs prior to visit. Would like to know if she can have her Adalimumab level checked today also instead of coming back in on 02/04. [facility] Medical History 29 weeks gestation of delivery delivered Abscess Blood transfusion, without reported diagnosis Social History household members: spouse and children Smoking Status: Never smoker alcohol intake: never substance use type: does not use hubert/lutheran: Mennonite HPI HPI Chief Complaint: crohn's flare Details: SHERI SOUTH, is a 34 F who presents to the office today for OV 01/11/2025 34-year-old female with a known history of Crohn's disease presents for initial consultation. She reports current symptoms of bloody stools, poor appetite, 20 pound weight loss and intermittent diarrhea, though overall stool frequency has improved. Her past medical history includes Crohn's disease, initially diagnosed as ulcerative colitis in August 2023, multiple flares with systemic inflammation with CRP up to 18.74, ESR 95, vasculitis. Complications including anal fissure abscesses (February 2024) with severe anemia (hemoglobin 6.1). Colonoscopy performed April 2024 revealed inflammation in the entire colon, with worst in the rectosigmoid along with involvement of the terminal ileum. Biopsies were consistent with chronic active enteritis in the terminal ileum and chronic active colitis in all segments of the colon. Recent hospitalization (September 2024) for Crohn's flare during improved on IV and then oral steroids. She is 29 weeks () and recently completed a prednisone taper in early November 2024 after a hospitalization for Crohn's flare in September. She received her first Humira dose on 08/30/2024 after delays due to insurance/patient assistance coordination. Current labs reveal microcytic anemia with hemoglobin of 8.6, with c/o bleeding x 3 weeks. She reports she was following with a highway commissioner at [facility] and recently transitioned to a highway commissioner at [facility]. She is also seeing a special education itinerant teacher who recently adjusted her p.o. iron. Rectal exam today reveals active perianal disease with 2 open fistula tracts with minimal clear drainage. I have ordered labs to be completed today with adalimumab levels and antibodies to be performed before next dose. She denies any abdominal pain, cramping or vaginal bleeding. She also reports highway commissioner at [facility] advised her there is no need for her to continue following up with the high risk practice. Patient Instructions: Complete labs today Complete fecal calprotectin Any increase in bleeding, or new onset of symptoms recommend ED for admission and IV steroids with coordination of care between GI and OB for possible biologic therapy change I advised while it is safe to be while on prednisone, we do not encourage during an active flare and recommend crohn's be in remission before conceiving in the future. ADMITTED 01/11/2025 through 01/14/2025 - Csection in [place] - Lan???MD Iris and Maria C Hoskinsife --- date is not yet scheduled - possibly deliver at 37 weeks - weekly visits - US having a girl - currently has a 3y/o and 5y/o - she questions breast feeding (more content not included)... Normal [facility] Glomerular filtration rate ( GFR) estimation/1.73 sq m using serum, plasma, or whole bOrdered By: Yoanna Tejeda on 01-31-2025 GFR/1.73 sq M.predicted among non-blacks MDRD (S/P/Bld) [Vol rate/Area] 126 mL/min/{1.73_m2} >60 [facility] Comment on above: mL/min/1.73m2 CKD-EP I Creatinine Equation (2020) Hematocrit Auto (Bld) [Volum e fraction]Ordered By: Yoanna Tejeda on 01-31-2025 Hematocrit (Bld) [Volume fraction] 30.6 % Low 37-47 [facility] Hemoglobin measurementOrdere d By: Yoanna Tejeda on 01-31-2025 Hemoglobin (Bld) [Mass/Vol] 9.9 g/dL Low 12.0-15.0 [facility] Hepatitis B Surface Antibody on 01-31-2025 HEP B Surf Ab Non-Reactive Normal [facility] Comment on above: Result Comment: <8.5 mIU/mL: Non-Reactive 8.5<= x <11.5 mIU/mL: Indeterminate >=11.5 mIU/mL: Reactive Non Reactive: Inconsistent with immunity less than <10 mIU/mL Reactive: Consistent with immunity greater than or equal to 10 mIU/mL Performed By: #### L 3100.3425, L3400.8000, L7000.0750, L3200.1100, L3200.0500, L5500.0550 #### [facility] [address] [place], [address] Immature granulocytes/100 WB C Auto (Bld)Ordered By: Yoanna Tejeda on 01-31-2025 Immature granulocytes/100 WBC (Bld) 0.900 % 0.0-0.9 [facility] Comment on above: IG% - Immature Granu locytes (promyelocytes, myelocytes and metamyelocytes) > 1% indicates that a LEFT SHIFT is Present. Laboratory - Chemistry and C hemistry - challengeOrdered By: Yoanna Tejeda on 01-31-2025 AST [Catalytic activity/Vol] 11 U/L <32 [facility] MCV (mean corpuscular volume ) determinationOrdered By: Yoanna Tejeda on 01-31-2025 MCV (RBC) [Entitic vol] 89.7 fL 81-99 [facility] Mean corpuscular hemoglobin (MCH) determinationOrdered By: Yoanna Tejeda on 01-31-2025 MCH (RBC) [Entitic mass] 29.0 pg 27.0-32.0 [facility] Mean corpuscular hemoglobin concentration (MCHC) determinationOrdered By: Yoanna Tejeda on 01-31-2025 MCHC (RBC) [Mass/Vol] 32.4 g/dL 32-36 [facility] Mean platelet volume determi nationOrdered By: Yoanna Tejeda on 01-31-2025 Platelet mean volume (Bld) [Entitic vol] 7.9 fL 6.2-12.0 [facility] Monocyte percentageOrdered B y: Yoanna Tejeda on 01-31-2025 Monocytes/100 WBC (Bld) 3.6 % 0-10 [facility] Neutrophil percentageOrdered By: Yoanna Tejeda on 01-31-2025 Neutrophils/100 WBC (Bld) 78.1 % High 47-70 [facility] Nucleated red blood cell per centageOrdered By: Yoanna Tejeda on 01-31-2025 Nucleated RBC/100 WBC (Bld) [Ratio] 0 % 0-5 [facility] Platelet countOrdered By: Cyrus Tejeda on 01-31-2025 Platelets (Bld) [#/Vol] 343 10*3/uL 150-450 [facility] Potassium measurement (mass/ volume)Ordered By: Yoanna Tejeda on 01-31-2025 Potassium (Unsp spec) [Mass/Vol] 4.1 mmol/L 3.3-5.1 [facility] RBC Auto (Bld) [#/Vol]Ordere d By: Yoanna Tejeda on 01-31-2025 RBC (Bld) [#/Vol] 3.41 10*6/uL Low 4.2-5.4 [facility] Serum creatinine measurement (mass/volume)Ordered By: Yoanna Tejeda on 01-31-2025 Creatinine [Mass/Vol] 0.52 mg/dL Low 0.70-1.20 [facility] Serum globulin measurementOr dered By: Yoanna Tejeda on 01-31-2025 Globulin (S) [Mass/Vol] 4.2 g/dL 2.2-4.2 [facility] Serum glucose measurement (m ass/volume)Ordered By: Yoanna Tejeda on 01-31-2025 Glucose [Mass/Vol] 114 mg/dL High 70-99 [facility] Serum hepatitis B virus surf rahul antibody detectionOrdered By: Yoanna Tejeda on 01-31-2025 HBV surface Ab Ql (S) Non-Reactive W [facility] Comment on above: <8.5 mIU/mL: Non-Beth ctive8.5<= x <11.5 mIU/mL: Indeterminate>=11.5 mIU/mL: Reactive Non Reactive: Inconsistent with immunity less than <10 mIU/mL Reactive: Consistent with immunity greater than or equal to 10 mIU/mL Serum or plasma C reactive p rotein measurement (mass/volume)Ordered By: Yoanna Tejeda on 01-31-2025 CRP [Mass/Vol] 32.80 mg/L High 0.0-3.0 [facility] Serum or plasma alanine woodruff otransferase (ALT) measurementOrdered By: Yoanna Tejeda on 01-31-2025 ALT [Catalytic activity/Vol] 11 U/L <35 [facility] Serum or plasma albumin vish urement (mass/volume)Ordered By: Yoanna Tejeda on 01-31-2025 Albumin [Mass/Vol] 3.4 g/dL Low 3.5-5.0 [facility] Serum or plasma albumin/glob ulin mass ratioOrdered By: Yoanna Tejeda on 01-31-2025 Albumin/Globulin [Mass ratio] 0.8 {ratio} Low 0.9-2.4 [facility] Serum or plasma alkaline kuldip sphatase measurementOrdered By: Yoanna Tejeda on 01-31-2025 ALP [Catalytic activity/Vol] 82 U/L 35-104 [facility] Serum or plasma calcium vish urement (mass/volume)Ordered By: Yoanna Tejeda on 01-31-2025 Calcium [Mass/Vol] 9.0 mg/dL 7.6-11.0 [facility] Serum or plasma urea nitroge n measurement (mass/volume)Ordered By: Yoanna Tejeda on 01-31-2025 Urea nitrogen [Mass/Vol] 10 mg/dL 4-19 [facility] Sodium levelOrdered By: Petrona Tejeda on 01-31-2025 Sodium [Moles/Vol] 134 mmol/L 133-145 [facility] Total proteinOrdered By: Lorraine Tejeda on 01-31-2025 Protein [Mass/Vol] 7.7 g/dL 5.9-8.4 [facility] White blood cell (WBC) count Ordered By: Yoanna Tejeda on 01-31-2025 WBC (Bld) [#/Vol] 10.5 10*3/uL 4.4-11.0 [facility] Laboratory - Chemistry and C hemistry - challengeon 01-28-2025 Bilirubin Ql (U) small Abnormal [facility], frestyl. Ketones Ql (U) 40 mg/dL Abnormal [facility] [employer].; [employer], frestyl. pH (U) 6.5 [pH] Normal [facility] [employer] Specific gravity (U) [Rel density] 1.020 Normal [facility] [employer], frestyl. Urobilinogen Qn (U) 1.0 mg/dL Normal [facility] [employer] [facility], frestyl. Laboratory - Hematology and Cell countson 01-28-2025 Hemoglobin Ql (U) Negative Normal [employer], [employer]restyl. Laboratory - Specimen inform ationon 01-28-2025 Appearance (U) clear Normal [facility] [employer], [employer]yl. Color (U) dark Yellow Normal [employer].; [facility], [employer]restyl. Laboratory - Urinalysison Glucose Test strip (U) [Mass/Vol] Negative Normal [employer].; [facility], [facility]. Leukocyte esterase Test strip Ql (U) Negative Normal [facility]. Nitrite Ql (U) Negative Normal [facility].; [facility]. Protein Ql (U) 30 mg/dL Abnormal [facility].; [facility], [facility]. PENNIE + Protein Elect, Serumon 01-18-2025 IMMUNOGLOB G QN TNP Normal [facility] Comment on above: Performed By: #### L 3100.3425, L3400.8000, L7000.0750, L3200.1100, L3200.0500, L5500.0550 #### [facility] [address] [place], [address] IgG Subclasseson 01-18-2025 IgG, SUBCLASS 1 895 mg/dL High 248-810 [facility] Comment on above: Performed By: #### L 3100.3425, L3400.8000, L7000.0750, L3200.1100, L3200.0500, L5500.0550 #### [facility] [address] [place], [address] IgG, SUBCLASS 2 874 mg/dL High 130-555 [facility] Comment on above: Performed By: #### L 3100.3425, L3400.8000, L7000.0750, L3200.1100, L3200.0500, L5500.0550 #### [facility] [address] [place], [address] IgG, SUBCLASS 3 181 mg/dL High 15-102 [facility] Comment on above: Performed By: #### L 3100.3425, L3400.8000, L7000.0750, L3200.1100, L3200.0500, L5500.0550 #### [facility] [address] [place], [address] IgG, SUBCLASS 4 17 mg/dL Normal 2-96 [facility] Comment on above: Performed By: #### L 3100.3425, L3400.8000, L7000.0750, L3200.1100, L3200.0500, L5500.0550 #### [facility] [address] [place], [address] IGG,QUANT 2181 mg/dL High 586-1602 [facility] Comment on above: Performed By: #### L 3100.3425, L3400.8000, L7000.0750, L3200.1100, L3200.0500, L5500.0550 #### [facility] [address] [place], [address] Immunoglobulins G/A/M/Jason IMMUNOGLOB E QN 6 IU/mL Normal 6-495 [facility] Comment on above: Performed By: #### L 3100.3425, L3400.8000, L7000.0750, L3200.1100, L3200.0500, L5500.0550 #### [facility] [address] [place], [address] L5500.0550on 01-18-2025 BEEF <0.10 Normal Class 0 [facility] Comment on above: Performed By: #### L 3100.3425, L3400.8000, L7000.0750, L3200.1100, L3200.0500, L5500.0550 #### [facility] [address] [place], [address] CHOCOLATE <0.10 Normal Class 0 [facility] Comment on above: Performed By: #### L 3100.3425, L3400.8000, L7000.0750, L3200.1100, L3200.0500, L5500.0550 #### [facility] [address] [place], [address] CODFISH <0.10 Normal Class 0 [facility] Comment on above: Performed By: #### L 3100.3425, L3400.8000, L7000.0750, L3200.1100, L3200.0500, L5500.0550 #### [facility] [address] [place], [address] COMMENT Comment Normal . [facility] Comment on above: Result Comment: Patricio batista of Specific IgE Class Description of Class ----- < 0.10 0 Negative 0.10 - 0.31 0/I Equivocal/Low 0.32 - 0.55 I Low 0.56 - 1.40 II Moderate 1.41 - 3.90 III High 3.91 - 19.00 IV Very High 19.01 - 100.00 V Very High >100.00 Very High Performed By: #### L 3100.3425, L3400.8000, L7000.0750, L3200.1100, L3200.0500, L5500.0550 #### [facility] [address] [place], [place], [id number] CORN <0.10 Normal Class 0 [facility] Comment on above: Performed By: #### L 3100.3425, L3400.8000, L7000.0750, L3200.1100, L3200.0500, L5500.0550 #### [facility] [address] [place], [place], [id number] EGG, WHOLE <0.10 Normal Class 0 [facility] Comment on above: Result Comment: Perf ormed at: - [facility] [id number] It Security Engineer: Vitaly Boswell MD, Phone: [phone] Performed By: #### L 3100.3425, L3400.8000, L7000.0750, L3200.1100, L3200.0500, L5500.0550 #### [facility] [address] [place], [address] MILK (COW) <0.10 Normal Class 0 [facility] Comment on above: Performed By: #### L 3100.3425, L3400.8000, L7000.0750, L3200.1100, L3200.0500, L5500.0550 #### [facility] [address] [place], [address] MUSSELS <0.10 Normal Class 0 [facility] Comment on above: Performed By: #### L 3100.3425, L3400.8000, L7000.0750, L3200.1100, L3200.0500, L5500.0550 #### [facility] [address] [place], [place], [facility] PEANUT <0.10 Normal Class 0 [facility] Comment on above: Performed By: #### L 3100.3425, L3400.8000, L7000.0750, L3200.1100, L3200.0500, L5500.0550 #### [facility] [address] [place], [place], [facility] PORK <0.10 Normal Class 0 [facility] Comment on above: Performed By: #### L 3100.3425, L3400.8000, L7000.0750, L3200.1100, L3200.0500, L5500.0550 #### [facility] [address] [place], [place], [facility] SALMON <0.10 Normal Class 0 [facility] Comment on above: Performed By: #### L 3100.3425, L3400.8000, L7000.0750, L3200.1100, L3200.0500, L5500.0550 #### [facility] [address] [place], [place], [facility] SHRIMP <0.10 Normal Class 0 [facility] Comment on above: Performed By: #### L 3100.3425, L3400.8000, L7000.0750, L3200.1100, L3200.0500, L5500.0550 #### [facility] [address] [place], [address] SOYBEAN <0.10 Normal Class 0 [facility] Comment on above: Performed By: #### L 3100.3425, L3400.8000, L7000.0750, L3200.1100, L3200.0500, L5500.0550 #### [facility] [address] [place], [address] TUNA <0.10 Normal Class 0 [facility] Comment on above: Performed By: #### L 3100.3425, L3400.8000, L7000.0750, L3200.1100, L3200.0500, L5500.0550 #### [facility] [address] [place], [address] WHEAT <0.10 Normal Class 0 [facility] Comment on above: Performed By: #### L 3100.3425, L3400.8000, L7000.0750, L3200.1100, L3200.0500, L5500.0550 #### [facility] [address] [place], [address] L7000.0750on 01-18-2025 P ELASTASE,FECA TNP Normal . [facility] Comment on above: Result Comment: Resu lt Units: ug Elast./g Test not performed. No stool specimen received. CONTACTED YOUR FACILITY VIA EMAIL ON 01-15-2025 Severe Pancreatic Insufficiency: <100 Moderate Pancreatic Insufficiency: 100 - 200 Normal: >200 Performed By: #### L 3100.3425, L3400.8000, L7000.0750, L3200.1100, L3200.0500, L5500.0550 #### [facility] [address] [place], [address] Ova and Parasites 8623on OP OVA AND PARASITES EXAM, ROUTINE These results were obtained using wet preparation(s) and trichrome stained smear. This test does not include testing for Crytosporidium parvum, Cyclospora, or Microsporidia. One negative specimen does not rule out the possibility of a parasitic infection. TESTING PERFORMED AT [facility]. ORIGINAL REPORT ON FILE IN LAB CONTAINS ADDITIONAL TEST SITE INFORMATION. Ova/Parasite Exam NO OVA, CYSTS, OR PARASITES FOUND. Normal [facility] Comment on above: Performed By: #### L 3100.3425, L3400.8000, L7000.0750, L3200.1100, L3200.0500, L5500.0550 #### [facility] [address] [place], [place], [id number] (387) Quantiferon TB-Gold+on 01-18 QFT MITOGEN BREONNA 0.85 IU/mL Normal . [facility] Comment on above: Performed By: #### L 3100.3425, L3400.8000, L7000.0750, L3200.1100, L3200.0500, L5500.0550 #### [facility] [address] [place], [place], [id number] QFT NIL VALUE 0.05 IU/mL Normal . [facility] Comment on above: Performed By: #### L 3100.3425, L3400.8000, L7000.0750, L3200.1100, L3200.0500, L5500.0550 #### [facility] [address] [place], [place], [id number] (056) QFT TB GOLD+ Comment Normal . [facility] Comment on above: Result Comment: Jose tiFERON-TB Gold Plus is a qualitative indirect test for M tuberculosis infection (including disease) and is intended for use in conjunction with risk assessment, radiography, and other medical and diagnostic evaluations. The QuantiFERON-TB Gold Plus result is determined by subtracting the Nil value from either TB antigen (Ag) value. The Mitogen tube serves as a control for the test. Performed By: #### L 3100.3425, L3400.8000, L7000.0750, L3200.1100, L3200.0500, L5500.0550 #### [facility] [address] [place], [address] QFT TB POS CRIT Negative Normal Negative [facility] Comment on above: Result Comment: No r esponse to M tuberculosis antigens detected. Infection with M tuberculosis is unlikely, but high risk individuals should be considered for additional testing (ATS/IDSA/CDC Clinical Practice Guidelines, 2017). The reference range is an Antigen minus Nil result of <0.35 IU/mL. The specimen received for QuantiFERON testing was incubated by the ordering institution. Specific procedures outlined in our Directory of Services and in the package insert for the QuantiFERON Gold (In Tube) test must be followed to enable for proper stimulation of cells for the production of interferon gamma. Chemiluminescence immunoassay methodology Performed By: #### L 3100.3425, L3400.8000, L7000.0750, L3200.1100, L3200.0500, L5500.0550 #### [facility] [address] [place], [address] QFT TB1+ AG BREONNA 0.03 IU/mL Normal . [facility] Comment on above: Performed By: #### L 3100.3425, L3400.8000, L7000.0750, L3200.1100, L3200.0500, L5500.0550 #### [facility] [address] [place], [address] QFT TB2+ AG BREONNA 0.04 IU/mL Normal . [facility] Comment on above: Performed By: #### L 3100.3425, L3400.8000, L7000.0750, L3200.1100, L3200.0500, L5500.0550 #### [facility] [address] [place], [address] KERI Comprehensive Panelon ANTI-CENT B AB <0.2 Normal 0.0-0.9 [facility] Comment on above: Performed By: #### L 3100.3425, L3400.8000, L7000.0750, L3200.1100, L3200.0500, L5500.0550 #### [facility] [address] [place], [address] ANTI-DNA (DS)AB 1 IU/mL Normal 0-9 [facility] Comment on above: Result Comment: Nega tive <5 Equivocal 5 - 9 Positive >9 Performed By: #### L 3100.3425, L3400.8000, L7000.0750, L3200.1100, L3200.0500, L5500.0550 #### [facility] [address] [place], [address] ANTI-ALESIA-1 <0.2 Normal 0.0-0.9 [facility] Comment on above: Performed By: #### L 3100.3425, L3400.8000, L7000.0750, L3200.1100, L3200.0500, L5500.0550 #### [facility] [address] [place], [address] ANTI-SS-A < 0.2 Normal 0.0-0.9 [facility] Comment on above: Performed By: #### L 3100.3425, L3400.8000, L7000.0750, L3200.1100, L3200.0500, L5500.0550 #### [facility] [address] [place], [address] ANTI-SS-B < 0.2 Normal 0.0-0.9 [facility] Comment on above: Performed By: #### L 3100.3425, L3400.8000, L7000.0750, L3200.1100, L3200.0500, L5500.0550 #### [facility] [address] [place], [place], [address] ANTICHROMATIN <0.2 Normal 0.0-0.9 [facility] Comment on above: Performed By: #### L 3100.3425, L3400.8000, L7000.0750, L3200.1100, L3200.0500, L5500.0550 #### [facility] [address] [place], [place], [address] WARES SORTER Ab <0.2 Normal 0.0-0.9 [facility] Comment on above: Performed By: #### L 3100.3425, L3400.8000, L7000.0750, L3200.1100, L3200.0500, L5500.0550 #### [facility] [address] [place], [address] ALVAREZ Ab <0.2 Normal 0.0-0.9 [facility] Comment on above: Performed By: #### L 3100.3425, L3400.8000, L7000.0750, L3200.1100, L3200.0500, L5500.0550 #### [facility] [address] [place], [address] ANCAon 01-15-2025 Atypical pANCA <1:20 Normal Neg:<1:20 [facility] Comment on above: Result Comment: The atypical pANCA pattern has been observed in a significant percentage of patients with ulcerative colitis, primary sclerosing cholangitis and autoimmune hepatitis. Performed at: [facility] [address] [id number] It Security Engineer: Pepe Tolentino PhD, Phone: [phone] Performed By: #### L 3100.3425, L3400.8000, L7000.0750, L3200.1100, L3200.0500, L5500.0550 #### [facility] [address] [place], [address] Cytoplasmic Ab <1:20 Normal Neg:<1:20 [facility] Comment on above: Performed By: #### L 3100.3425, L3400.8000, L7000.0750, L3200.1100, L3200.0500, L5500.0550 #### [facility] [address] [place], [address] Perinuclear Ab. <1:20 Normal Neg:<1:20 [facility] Comment on above: Result Comment: The presence of positive fluorescence exhibiting P-ANCA or C-ANCA patterns alone is not specific for the diagnosis of Rosmery's Granulomatosis (WG) or microscopic polyangiitis. Decisions about treatment should not be based solely on ANCA IFA results. The [employer] ANCA [employer] Consensus recommends follow up testing of positive sera with both WI- 3 and MPO-ANCA enzyme immunoassays. As many as 5% serum samples are positive only by EIA. Ref. AM J Clin Pathol 1999;111:507-513. Performed By: #### L 3100.3425, L3400.8000, L7000.0750, L3200.1100, L3200.0500, L5500.0550 #### [facility] [address] [place], [address] Hepatitis Panel Acuteon 04-2 COMMENT Comment Normal . [facility] Comment on above: Result Comment: Not infected with HCV unless early or acute infection is suspected (which may be delayed in an immunocompromised individual), or other evidence exists to indicate HCV infection. Performed By: #### L 3100.3425, L3400.8000, L7000.0750, L3200.1100, L3200.0500, L5500.0550 #### [facility] [address] [place], [address] HEP B CORE,IgM Negative Normal Negative [facility] Comment on above: Performed By: #### L 3100.3425, L3400.8000, L7000.0750, L3200.1100, L3200.0500, L5500.0550 #### [facility] [address] [place], [address] HEP B SURF AG Negative Normal Negative [facility] Comment on above: Performed By: #### L 3100.3425, L3400.8000, L7000.0750, L3200.1100, L3200.0500, L5500.0550 #### [facility] [address] [place], [place], [address] HEP C VIRUS AB Non-Reactive Normal Non Reactive [facility] Comment on above: Performed By: #### L 3100.3425, L3400.8000, L7000.0750, L3200.1100, L3200.0500, L5500.0550 #### [facility] [address] [place], [place], [address] HEPATITIS A-IgM Negative Normal Negative [facility] Comment on above: Result Comment: A ne gative anti-HAV IgM result suggests no recent or current HAV infection. Performed By: #### L 3100.3425, L3400.8000, L7000.0750, L3200.1100, L3200.0500, L5500.0550 #### [facility] [address] [place], [place], [address] Transferrinon 01-15-2025 Transferrin [Mass/Vol] 275 mg/dL Normal 192-364 [facility] Comment on above: Result Comment: Perf ormed at: - [facility] [address] [id number] It Security Engineer: Pepe Tolentino PhD, Phone: [phone] Performed By: #### L 3100.3425, L3400.8000, L7000.0750, L3200.1100, L3200.0500, L5500.0550 #### [facility] [address] [place], [address] Absolute lymphocyte countOrd ered By: Yoanna Vasques on 01-14-2025 Lymphocytes Auto (Unsp spec) [#/Vol] 2.29 10*3/uL 0.83-4.51 [facility] Absolute neutrophil countOrd ered By: Yoanna Vasques on 01-14-2025 Neutrophils (Bld) [#/Vol] 8.5 10*3/uL High 2.0-7.7 [facility] Anion gap in Serum or Plasma Ordered By: Ruben Galdamez on 01-14-2025 Anion gap [Moles/Vol] 11 mmol/L 5- [facility] Automated lymphocyte count a s percentage of total leukocytesOrdered By: Yoanna Vasques on 01-14-2025 Lymphocytes/100 WBC Auto (Unsp spec) 20.1 % 19- [facility] BUN/creatinine ratioOrdered By: Ruben Galdamez on 01-14-2025 Urea nitrogen/Creatinine [Mass ratio] 16.2 mg/mg 10- [facility] Basophil percentageOrdered B y: Yoanna Vasques on 01-14-2025 Basophils/100 WBC (Bld) 0.3 % 0-1 [facility] Bilirubin, totalOrdered By: Ruben Galdamez on 01-14-2025 Bilirubin [Mass/Vol] 0.28 mg/dL 0.00-1.30 [facility] CBC W/Diff, Automatedon 12-19 Absolute Lymph 2.29 X10 3/uL Normal 0.83-4.51 [facility] Comment on above: Performed By: #### L 3100.3425, L3400.8000, L7000.0750, L3200.1100, L3200.0500, L5500.0550 #### [facility] [address] [place], [address] Absolute Neut 8.5 X10 3/uL High 2.0-7.7 [facility] Comment on above: Performed By: #### L 3100.3425, L3400.8000, L7000.0750, L3200.1100, L3200.0500, L5500.0550 #### [facility] [address] [place], [address] Basophils/100 WBC (Bld) 0.3 % Normal 0-1 [facility] Comment on above: Performed By: #### L 3100.3425, L3400.8000, L7000.0750, L3200.1100, L3200.0500, L5500.0550 #### [facility] [address] [place], [address] Eosinophils/100 WBC (Bld) 0.0 % Normal 0-5 [facility] Comment on above: Performed By: #### L 3100.3425, L3400.8000, L7000.0750, L3200.1100, L3200.0500, L5500.0550 #### [facility] [address] [place], [address] Erythrocyte distribution width (RBC) [Ratio] 15.0 % High 11.6-14.6 [facility] Comment on above: Performed By: #### L 3100.3425, L3400.8000, L7000.0750, L3200.1100, L3200.0500, L5500.0550 #### [facility] [address] [place], [address] Hematocrit (Bld) [Volume fraction] 28.6 % Low 37-47 [facility] Comment on above: Performed By: #### L 3100.3425, L3400.8000, L7000.0750, L3200.1100, L3200.0500, L5500.0550 #### [facility] [address] [place], [address] Hemoglobin (Bld) [Mass/Vol] 8.9 g/dL Low 12.0-15.0 [facility] Comment on above: Performed By: #### L 3100.3425, L3400.8000, L7000.0750, L3200.1100, L3200.0500, L5500.0550 #### [facility] [address] [place], [address] IG% 1.600 High 0.0-0.9 [facility] Comment on above: Result Comment: IG% - Immature Granulocytes (promyelocytes, myelocytes and metamyelocytes) > 1% indicates that a LEFT SHIFT is Present. Performed By: #### L 3100.3425, L3400.8000, L7000.0750, L3200.1100, L3200.0500, L5500.0550 #### [facility] [address] [place], [address] Lymphocytes/100 WBC (Bld) 20.1 % Normal 19-41 [facility] Comment on above: Performed By: #### L 3100.3425, L3400.8000, L7000.0750, L3200.1100, L3200.0500, L5500.0550 #### [facility] [address] [place], [address] MCH (RBC) [Entitic mass] 28.4 pg Normal 27.0-32.0 [facility] Comment on above: Performed By: #### L 3100.3425, L3400.8000, L7000.0750, L3200.1100, L3200.0500, L5500.0550 #### [facility] [address] [place], [address] MCHC (RBC) [Mass/Vol] 31.1 g/dL Low 32-36 [facility] Comment on above: Performed By: #### L 3100.3425, L3400.8000, L7000.0750, L3200.1100, L3200.0500, L5500.0550 #### [facility] [address] [place], [address] MCV (RBC) [Entitic vol] 91.4 fL Normal 81-99 [facility] Comment on above: Performed By: #### L 3100.3425, L3400.8000, L7000.0750, L3200.1100, L3200.0500, L5500.0550 #### [facility] [address] [place], [address] Monocytes/100 WBC (Bld) 3.7 % Normal 0-10 [facility] Comment on above: Performed By: #### L 3100.3425, L3400.8000, L7000.0750, L3200.1100, L3200.0500, L5500.0550 #### [facility] [address] [place], [address] Neutrophils/100 WBC (Bld) 74.3 % High 47-70 [facility] Comment on above: Performed By: #### L 3100.3425, L3400.8000, L7000.0750, L3200.1100, L3200.0500, L5500.0550 #### [facility] [address] [place], [address] Nucleated RBC (Bld) [#/Vol] 0 10*3/uL Normal 0-5 [facility] Comment on above: Performed By: #### L 3100.3425, L3400.8000, L7000.0750, L3200.1100, L3200.0500, L5500.0550 #### [facility] [address] [place], [address] Platelet mean volume (Bld) [Entitic vol] 7.8 fL Normal 6.2-12.0 [facility] Comment on above: Performed By: #### L 3100.3425, L3400.8000, L7000.0750, L3200.1100, L3200.0500, L5500.0550 #### [facility] [address] [place], [address] Platelets (Bld) [#/Vol] 364 10*3/uL Normal 150-450 [facility] Comment on above: Performed By: #### L 3100.3425, L3400.8000, L7000.0750, L3200.1100, L3200.0500, L5500.0550 #### [facility] [address] [place], [address] RBC (Bld) [#/Vol] 3.13 10*6/uL Low 4.2-5.4 [facility] Comment on above: Performed By: #### L 3100.3425, L3400.8000, L7000.0750, L3200.1100, L3200.0500, L5500.0550 #### [facility] [address] [place], [address] RDW SD 49.1 fl High 35.1-43.9 [facility] Comment on above: Performed By: #### L 3100.3425, L3400.8000, L7000.0750, L3200.1100, L3200.0500, L5500.0550 #### [facility] [address] [place], [address] WBC (Bld) [#/Vol] 11.4 10*3/uL High 4.4-11.0 [facility] Comment on above: Performed By: #### L 3100.3425, L3400.8000, L7000.0750, L3200.1100, L3200.0500, L5500.0550 #### [facility] [address] [place], [address] CRPon 01-14-2025 C-REACTIVE PROT 14.70 mg/L High 0.0-3.0 [facility] Comment on above: Performed By: #### L 101.9900, L501.6710, L500.4050 #### [facility] [address] [place], [address] CRP [Mass/Vol]Ordered By: Ra radha Galdamez on 01-14-2025 C-Reactive Protein Extended Range 14.70 mg/L High 0.0-3.0 [facility] Carbon dioxide, total [Moles /volume] in Central venous bloodOrdered By: Ruben Galdamez on 01-14-2025 CO2 [Moles/Vol] 20.4 mmol/L Low 21.0-32.0 [facility] Chloride assayOrdered By: Ra garcia Friend on 01-14-2025 Chloride [Moles/Vol] 103 mmol/L 98-108 [facility] Comprehensive Metabolic Prof ilon 01-14-2025 Albumin [Mass/Vol] 2.6 g/dL Low 3.5-5.0 [facility] Comment on above: Performed By: #### L 101.9900, L501.6710, L500.4050 #### [facility] [address] [place], [address] Albumin/Globulin [Mass ratio] 0.5 {ratio} Low 0.9-2.4 [facility] Comment on above: Performed By: #### L 101.9900, L501.6710, L500.4050 #### [facility] [address] [place], [address] ALK PHOS 169 U/L High 35-104 [facility] Comment on above: Performed By: #### L 101.9900, L501.6710, L500.4050 #### [facility] [address] [place], [address] ALT [Catalytic activity/Vol] 23 U/L Normal <=34 [facility] Comment on above: Performed By: #### L 101.9900, L501.6710, L500.4050 #### [facility] [address] [place], [address] AST [Catalytic activity/Vol] 35 U/L High <=31 [facility] Comment on above: Performed By: #### L 101.9900, L501.6710, L500.4050 #### [facility] [address] [place], [address] Bilirubin [Mass/Vol] 0.28 mg/dL Normal 0.00-1.30 [facility] Comment on above: Performed By: #### L 101.9900, L501.6710, L500.4050 #### [facility] [address] [place], [address] BUN/CRE 16.2 RATIO Normal 10-20 [facility] Comment on above: Performed By: #### L 101.9900, L501.6710, L500.4050 #### [facility] [address] [place], [address] Calcium [Mass/Vol] 8.7 mg/dL Normal 7.6-11.0 [facility] Comment on above: Performed By: #### L 101.9900, L501.6710, L500.4050 #### [facility] [address] [place], [address] Chloride [Moles/Vol] 103 mmol/L Normal 98-108 [facility] Comment on above: Performed By: #### L 101.9900, L501.6710, L500.4050 #### [facility] [address] [place], [address] CO2 [Moles/Vol] 20.4 mmol/L Low 21.0-32.0 [facility] Comment on above: Performed By: #### L 101.9900, L501.6710, L500.4050 #### [facility] [address] [place], [address] Creatinine [Mass/Vol] 0.42 mg/dL Low 0.70-1.20 [facility] Comment on above: Performed By: #### L 101.9900, L501.6710, L500.4050 #### [facility] [address] [place], [address] GAP 11 Normal 5-15 [facility] Comment on above: Performed By: #### L 101.9900, L501.6710, L500.4050 #### [facility] [address] [place], [address] GFR/1.73 sq M.predicted among non-blacks MDRD (S/P/Bld) [Vol rate/Area] 132 mL/min/{1.73_m2} Normal >60 [facility] Comment on above: Result Comment: mL/m in/1.73m2 CKD-EPI Creatinine Equation (2020) Performed By: #### L 101.9900, L501.6710, L500.4050 #### [facility] [address] [place], [address] Globulin (S) [Mass/Vol] 4.9 g/dL High 2.2-4.2 [facility] Comment on above: Performed By: #### L 101.9900, L501.6710, L500.4050 #### [facility] [address] [place], [address] Glucose [Mass/Vol] 115 mg/dL High 70-99 [facility] Comment on above: Performed By: #### L 101.9900, L501.6710, L500.4050 #### [facility] [address] [place], [address] Potassium [Moles/Vol] 4.3 mmol/L Normal 3.3-5.1 [facility] Comment on above: Performed By: #### L 101.9900, L501.6710, L500.4050 #### [facility] [address] [place], [address] Sodium [Moles/Vol] 135 mmol/L Normal 133-145 [facility] Comment on above: Performed By: #### L 101.9900, L501.6710, L500.4050 #### [facility] [address] [place], [address] T PROT 7.5 g/dL Normal 5.9-8.4 [facility] Comment on above: Performed By: #### L 101.9900, L501.6710, L500.4050 #### [facility] [address] [place], [address] Urea nitrogen [Mass/Vol] 7 mg/dL Normal 4-19 [facility] Comment on above: Performed By: #### L 101.9900, L501.6710, L500.4050 #### [facility] [address] [place], [address] Discharge Instructionon 12-19 Discharge Instruction [facility] Medical Records Department [address] [place] [address] Instructions for Home/Discharge Instructions 01/14/25 1644 MR#: [id number] Acct: [id number] Name: SHERI SOUTH Rep #: [id number] : 1990 34 From: Yoanna Salazar DO PCP: Dr. Lan Simmons MD Status:ADM IN Discharge Instructions Diet Discharge Diet: No restrictions DC O2, CPAP, BIPAP needs Home O2 Discharge instructions: No Dressing / Incision Discharge Activity: Return to Normal Activity May resume sexual activity in: No Restrictions Weight Bearing Status: Weight bearing as tolerated Dressing / Incision Call your doctor if you observe: Fever of 101 or Higher, Dizziness, Chest pain, Increased palpitations (irregular heartbeat), Calf discomfort and Uncontrolled pain Follow Up Care Please Follow Up With: Ruben Galdamez DO When: 2- 3 weeks Test Results: Test results from this visit will be discussed in further detail at your follow-up appointment, if applicable. Discharge Plan Admission Admit Date/Time: 01/14/25 08:03 Primary Reason for Your Visit: GI Bleed in Attending Provider: Yoanna Salazar Primary Care Provider: Lan Simmons Discharge Orders/Prescriptions Prescriptions: No Action Humira(CF) 40 mg/0.4 mL syringe kit 40 mg subcut Q2W [id number]-he rbal 354 18 mg iron- 400 mcg-120 mcg tablet 1 tab PO DAILY Melani Herbal Iron 1 cap PO BID ascorbic acid (vitamin C) [Acerola C] 500 mg tablet,chewable 500 mg PO BID Referrals / Follow Up: Lan Simmons MD [Primary Care Provider] - Disposition Disposition (needs filled in before D/C Order can be placed): Home, Self Care 01/14/25 1645 Yoanna Benedict Vasques DO CC: Dr. Lan Simmons MD Signed Normal [facility] Eosinophil percentageOrdered By: Yoanna Vasques on 01-14-2025 Eosinophils/100 WBC (Bld) 0.0 % 0-5 [facility] Erythrocyte Sed Rateon 01-14 SED RATE 41 mm/hr High 0-30 [facility] Comment on above: Performed By: #### L 101.9900, L501.6710, L500.4050 #### [facility] [address] [place], [address] Erythrocyte distribution wid th (RBC) [Ratio]Ordered By: Yoanna Vasques on 01-14-2025 Erythrocyte distribution width (RBC) [Entitic vol] 49.1 fL High 35.1-43.9 [facility] Erythrocyte distribution wid th ratioOrdered By: Yoanna Vasques on 01-14-2025 Erythrocyte distribution width (RBC) [Ratio] 15.0 % High 11.6-14.6 [facility] Erythrocyte distribution wid th standard deviationOrdered By: Yoanna Vasques on 01-14-2025 Erythrocyte distribution width (RBC) [Ratio] 49.1 fl High 35.1-43.9 [facility] Erythrocyte sedimentation ra teOrdered By: Ruben Galdamez on 01-14-2025 ESR (Bld) [Velocity] 41 mm/h High 0-30 [facility] GFR/1.73 sq M.predicted juan g non-blacks MDRD (S/P/Bld) [Vol rate/Area]Ordered By: Ruben Galdamze on 01-14-2025 Estimated GFR (MDRD) Non-Af Amer 132 >60 [facility] Comment on above: mL/min/1.73m2 CKD-EP I Creatinine Equation (2020) Glomerular filtration rate ( GFR) estimation/1.73 sq m using serum, plasma, or whole bOrdered By: Ruben Galdamez on 01-14-2025 GFR/1.73 sq M.predicted among non-blacks MDRD (S/P/Bld) [Vol rate/Area] 132 mL/min/{1.73_m2} >60 [facility] Comment on above: mL/min/1.73m2 CKD-EP I Creatinine Equation (2020) Hematocrit Auto (Bld) [Volum e fraction]Ordered By: Yoanna Vasques on 01-14-2025 Hematocrit (Bld) [Volume fraction] 28.6 % Low 37-47 [facility] Hemoglobin measurementOrdere d By: Yoanna Vasques on 01-14-2025 Hemoglobin (Bld) [Mass/Vol] 8.9 g/dL Low 12.0-15.0 [facility] Immature granulocytes/100 WB C Auto (Bld)Ordered By: Yoanna Vasques on 01-14-2025 Immature granulocytes/100 WBC (Bld) 1.600 % High 0.0-0.9 [facility] Comment on above: IG% - Immature Granu locytes (promyelocytes, myelocytes and metamyelocytes) > 1% indicates that a LEFT SHIFT is Present. Laboratory - Chemistry and C hemistry - challengeOrdered By: Ruben Galdamez on 01-14-2025 AST [Catalytic activity/Vol] 35 U/L High <32 [facility] Lymphocytes Auto (Unsp spec) [#/Vol]Ordered By: Yoanna Vasques on 01-14-2025 Lymphocytes (Bld) [#/Vol] 2.29 10*3/uL 0.83-4.51 [facility] Lymphocytes/100 WBC Auto (Un sp spec)Ordered By: Yoanna Vasques on 01-14-2025 Lymphocytes/100 WBC (Bld) 20.1 % 19-41 [facility] MCV (mean corpuscular volume ) determinationOrdered By: Yoanna Vasques on 01-14-2025 MCV (RBC) [Entitic vol] 91.4 fL 81-99 [facility] Mean corpuscular hemoglobin (MCH) determinationOrdered By: Yoanna Vasques on 01-14-2025 MCH (RBC) [Entitic mass] 28.4 pg 27.0-32.0 [facility] Mean corpuscular hemoglobin concentration (MCHC) determinationOrdered By: Yoanna Vasques on 01-14-2025 MCHC (RBC) [Mass/Vol] 31.1 g/dL Low 32-36 [facility] Mean platelet volume determi nationOrdered By: Yoanna Vasques on 01-14-2025 Platelet mean volume (Bld) [Entitic vol] 7.8 fL 6.2-12.0 [facility] Monocyte percentageOrdered B y: Yoanna Vasques on 01-14-2025 Monocytes/100 WBC (Bld) 3.7 % 0-10 [facility] Neutrophil percentageOrdered By: Yoanna Vasques on 01-14-2025 Neutrophils/100 WBC (Bld) 74.3 % High 47-70 [facility] Nucleated red blood cell per centageOrdered By: Yoanna Vasques on 01-14-2025 Nucleated RBC/100 WBC (Bld) [Ratio] 0 % 0-5 [facility] Platelet countOrdered By: Cyrus Vasques on 01-14-2025 Platelets (Bld) [#/Vol] 364 10*3/uL 150-450 [facility] Potassium (Unsp spec) [Mass/ Vol]Ordered By: Ruben Galdamez on 01-14-2025 Potassium [Moles/Vol] 4.3 mmol/L 3.3-5.1 [facility] Potassium measurement (mass/ volume)Ordered By: Ruben Galdamez on 01-14-2025 Potassium (Unsp spec) [Mass/Vol] 4.3 mmol/L 3.3-5.1 [facility] RBC Auto (Bld) [#/Vol]Ordere d By: Yoanna Vasques on 01-14-2025 RBC (Bld) [#/Vol] 3.13 10*6/uL Low 4.2-5.4 [facility] Serum creatinine measurement (mass/volume)Ordered By: Ruben Galdamez on 01-14-2025 Creatinine [Mass/Vol] 0.42 mg/dL Low 0.70-1.20 [facility] Serum globulin measurementOr dered By: Ruben Galdamez on 01-14-2025 Globulin (S) [Mass/Vol] 4.9 g/dL High 2.2-4.2 [facility] Serum glucose measurement (m ass/volume)Ordered By: Ruben Galdamez on 01-14-2025 Glucose [Mass/Vol] 115 mg/dL High 70-99 [facility] Serum or plasma C reactive p rotein measurement (mass/volume)Ordered By: Ruben Galdamez on 01-14-2025 CRP [Mass/Vol] 14.70 mg/L High 0.0-3.0 [facility] Serum or plasma alanine woodruff otransferase (ALT) measurementOrdered By: Ruben Galdamez on 01-14-2025 ALT [Catalytic activity/Vol] 23 U/L <35 [facility] Serum or plasma albumin vish urement (mass/volume)Ordered By: Ruben Galdamez on 01-14-2025 Albumin [Mass/Vol] 2.6 g/dL Low 3.5-5.0 [facility] Serum or plasma albumin/glob ulin mass ratioOrdered By: Ruben Galdamez on 01-14-2025 Albumin/Globulin [Mass ratio] 0.5 {ratio} Low 0.9-2.4 [facility] Serum or plasma alkaline kuldip sphatase measurementOrdered By: Ruben Galdamez on 01-14-2025 ALP [Catalytic activity/Vol] 169 U/L High 35-104 [facility] Serum or plasma calcium vish urement (mass/volume)Ordered By: Ruben Galdamez on 01-14-2025 Calcium [Mass/Vol] 8.7 mg/dL 7.6-11.0 [facility] Serum or plasma urea nitroge n measurement (mass/volume)Ordered By: Ruben Galdamez on 01-14-2025 Urea nitrogen [Mass/Vol] 7 mg/dL 4-19 [facility] Sodium levelOrdered By: Gigi Ramon on 01-14-2025 Sodium [Moles/Vol] 135 mmol/L 133-145 [facility] Total proteinOrdered By: Steve Galdamez on 01-14-2025 Protein [Mass/Vol] 7.5 g/dL 5.9-8.4 [facility] White blood cell (WBC) count Ordered By: Yoanna Vasques on 01-14-2025 WBC (Bld) [#/Vol] 11.4 10*3/uL High 4.4-11.0 [facility] CBC W/Diff, Automatedon 04-2 -2024 Absolute Lymph 2.48 X10 3/uL Normal 0.83-4.51 [facility] Comment on above: Performed By: #### L 3100.3425, L3400.8000, L7000.0750, L3200.1100, L3200.0500, L5500.0550 #### [facility] Laboratory [address] [place], [address] Absolute Neut 7.3 X10 3/uL Normal 2.0-7.7 [facility] Comment on above: Performed By: #### L 3100.3425, L3400.8000, L7000.0750, L3200.1100, L3200.0500, L5500.0550 #### [facility] Laboratory [address] [place], [address] Basophils/100 WBC (Bld) 0.1 % Normal 0-1 [facility] Comment on above: Performed By: #### L 3100.3425, L3400.8000, L7000.0750, L3200.1100, L3200.0500, L5500.0550 #### [facility] [address] [place], [address] Eosinophils/100 WBC (Bld) 0.0 % Normal 0-5 [facility] Comment on above: Performed By: #### L 3100.3425, L3400.8000, L7000.0750, L3200.1100, L3200.0500, L5500.0550 #### [facility] [address] [place], [address] Erythrocyte distribution width (RBC) [Ratio] 14.8 % High 11.6-14.6 [facility] Comment on above: Performed By: #### L 3100.3425, L3400.8000, L7000.0750, L3200.1100, L3200.0500, L5500.0550 #### [facility] Laboratory [address] [place], [address] Hematocrit (Bld) [Volume fraction] 29.5 % Low 37-47 [facility] Comment on above: Performed By: #### L 3100.3425, L3400.8000, L7000.0750, L3200.1100, L3200.0500, L5500.0550 #### [facility] [address] [place], [address] Hemoglobin (Bld) [Mass/Vol] 9.4 g/dL Low 12.0-15.0 [facility] Comment on above: Performed By: #### L 3100.3425, L3400.8000, L7000.0750, L3200.1100, L3200.0500, L5500.0550 #### [facility] [address] [facility] [place], [address] IG% 2.300 High 0.0-0.9 [facility] Comment on above: Result Comment: IG% - Immature Granulocytes (promyelocytes, myelocytes and metamyelocytes) > 1% indicates that a LEFT SHIFT is Present. Performed By: #### L 3100.3425, L3400.8000, L7000.0750, L3200.1100, L3200.0500, L5500.0550 #### [facility] [address] [place], [address] Lymphocytes/100 WBC (Bld) 24.0 % Normal 19-41 [facility] Comment on above: Performed By: #### L 3100.3425, L3400.8000, L7000.0750, L3200.1100, L3200.0500, L5500.0550 #### [facility] [address] [place], [address] MCH (RBC) [Entitic mass] 29.2 pg Normal 27.0-32.0 [facility] Comment on above: Performed By: #### L 3100.3425, L3400.8000, L7000.0750, L3200.1100, L3200.0500, L5500.0550 #### [facility] Laboratory [address] [place], [address] MCHC (RBC) [Mass/Vol] 31.9 g/dL Low 32-36 [facility] Comment on above: Performed By: #### L 3100.3425, L3400.8000, L7000.0750, L3200.1100, L3200.0500, L5500.0550 #### [facility] Laboratory [address] [place], [address] MCV (RBC) [Entitic vol] 91.6 fL Normal 81-99 [facility] Comment on above: Performed By: #### L 3100.3425, L3400.8000, L7000.0750, L3200.1100, L3200.0500, L5500.0550 #### [facility] Laboratory [address] [place], [address] Monocytes/100 WBC (Bld) 3.4 % Normal 0-10 [facility] Comment on above: Performed By: #### L 3100.3425, L3400.8000, L7000.0750, L3200.1100, L3200.0500, L5500.0550 #### [facility] [address] [place], [address] Neutrophils/100 WBC (Bld) 70.2 % High 47-70 [facility] Comment on above: Performed By: #### L 3100.3425, L3400.8000, L7000.0750, L3200.1100, L3200.0500, L5500.0550 #### [facility] [address] [place], [address] Nucleated RBC (Bld) [#/Vol] 0 10*3/uL Normal 0-5 [facility] Comment on above: Performed By: #### L 3100.3425, L3400.8000, L7000.0750, L3200.1100, L3200.0500, L5500.0550 #### [facility] [address] [place], [address] Platelet mean volume (Bld) [Entitic vol] 7.7 fL Normal 6.2-12.0 [facility] Comment on above: Performed By: #### L 3100.3425, L3400.8000, L7000.0750, L3200.1100, L3200.0500, L5500.0550 #### [facility] Laboratory [address] [place], [address] Platelets (Bld) [#/Vol] 401 10*3/uL Normal 150-450 [facility] Comment on above: Performed By: #### L 3100.3425, L3400.8000, L7000.0750, L3200.1100, L3200.0500, L5500.0550 #### [facility] Laboratory [address] [place], [address] RBC (Bld) [#/Vol] 3.22 10*6/uL Low 4.2-5.4 [facility] Comment on above: Performed By: #### L 3100.3425, L3400.8000, L7000.0750, L3200.1100, L3200.0500, L5500.0550 #### [facility] Laboratory [address] [place], [address] RDW SD 48.4 fl High 35.1-43.9 [facility] Comment on above: Performed By: #### L 3100.3425, L3400.8000, L7000.0750, L3200.1100, L3200.0500, L5500.0550 #### [facility] [address] [place], [address] WBC (Bld) [#/Vol] 10.4 10*3/uL Normal 4.4-11.0 [facility] Comment on above: Performed By: #### L 3100.3425, L3400.8000, L7000.0750, L3200.1100, L3200.0500, L5500.0550 #### [facility] [address] [facility] [address] [place], [place], [id number] CDIFF (PCR)on 01-13-2025 CDIFF Is the patient receiving laxatives? N Above criteria not met but test indicated Y New/unexplained onset of 3 or more stools in past 24 hrs? Y A positive C. difficile molecular test does not differentiate between an active C. difficile infection and C. difficile colonization. Use clinical judgement and paired toxin/antigen testing to identify true infection and need for treatment. C diff DNA Spec Ql DARREN+probe Reference Range: Negative [facility] GeneXpert: polymerase chain reaction (PCR) 027 027 NAP1-B1 Presumptive Negative *for epidemiolologic???use C. Diff PCR Negative- No toxigenic C. Diff Detected Normal [facility] Comment on above: Performed By: #### L 3100.3425, L3400.8000, L7000.0750, L3200.1100, L3200.0500, L5500.0550 #### [facility] Laboratory [address] [facility] [place], [place], [id number] ENTERIC PATHOGEN PANEL STOOL on 01-13-2025 EP PANEL Is the patient receiving laxatives? N Above criteria not met but test indicated Y New/unexplained onset of 3 or more stools in past 24 hrs? Y CAMPYLOBACTER Not Detected Norovirus Not Detected Rotavirus Not Detected Salmonella Not Detected Shiga Toxin Not Detected Shigella sp. Not Detected VIBRIO Not Detected Yersinia Not Detected Normal [facility] Comment on above: Performed By: #### L 3100.3425, L3400.8000, L7000.0750, L3200.1100, L3200.0500, L5500.0550 #### [facility] Laboratory [address] [facility] [place], [place], [id number] LDHon 01-13-2025 LDH 134 U/L Normal 84-246 [facility] Comment on above: Performed By: #### L 3100.3425, L3400.8000, L7000.0750, L3200.1100, L3200.0500, L5500.0550 #### [facility] Laboratory [address] [place], [place], [id number] Lactate dehydrogenase (LDH) measurementOrdered By: Yoanna Vasques on 01-13-2025 LDH [Catalytic activity/Vol] 134 U/L 84-246 [facility] Stool Lactoferrin/WBCon - WBCST Is the patient receiving laxatives? N Above criteria not met but test indicated Y New/unexplained onset of 3 or more stools in past 24 hrs? Y Normal Reference Range = Negative Fecal WBC Lactoferrin A Positive: Fecal WBC Lactoferrin present A Normal [facility] Comment on above: Performed By: #### L 3100.3425, L3400.8000, L7000.0750, L3200.1100, L3200.0500, L5500.0550 #### [facility] Laboratory [address] [place], [place], [id number] Albumin Elph [Mass/Vol]Order ed By: Ruben Galdamez on 01-12-2025 Albumin [Mass/Vol] 2.0 g/dL Low 2.9-4.4 [facility] Amylaseon 01-12-2025 TIFFANIE 18 U/L Low 28-100 [facility] Comment on above: Performed By: #### L 3100.3425, L3400.8000, L7000.0750, L3200.1100, L3200.0500, L5500.0550 #### [facility] [address] [place], [address] BRCon 01-12-2025 RC Normal [facility] Comment on above: Result Comment: [id number] OP RC TRANSFUSED 01/12/25 1353 Performed By: #### L 3100.3425, L3400.8000, L7000.0750, L3200.1100, L3200.0500, L5500.0550 #### [facility] [address] [place], [address] Result Comment: [id number] ABP RC TRANSFUSED 01/12/25 2226 C. difficile DNA DARREN+probe Q l (Unsp spec)Ordered By: Ruben Galdamez on 01-12-2025 Clostridioides difficile (PCR) [facility] CBC W/Diff, Automatedon 12-19 Absolute Neut Normal 2.0-7.7 [facility] Comment on above: Result Comment: Canc elled via OM: Ordered/Entered in error Performed By: #### L 3100.3425, L3400.8000, L7000.0750, L3200.1100, L3200.0500, L5500.0550 #### [facility] [address] [place], [address] HCT Normal 37-47 [facility] Comment on above: Result Comment: Canc elled via OM: Ordered/Entered in error Performed By: #### L 3100.3425, L3400.8000, L7000.0750, L3200.1100, L3200.0500, L5500.0550 #### [facility] [address] [place], [address] HGB Normal 12.0-15.0 [facility] Comment on above: Result Comment: Canc elled via OM: Ordered/Entered in error Performed By: #### L 3100.3425, L3400.8000, L7000.0750, L3200.1100, L3200.0500, L5500.0550 #### [facility] [address] [place], [address] MCH Normal 27.0-32.0 [facility] Comment on above: Result Comment: Canc elled via OM: Ordered/Entered in error Performed By: #### L 3100.3425, L3400.8000, L7000.0750, L3200.1100, L3200.0500, L5500.0550 #### [facility] [address] [place], [address] MCHC Normal 32-36 [facility] Comment on above: Result Comment: Canc elled via OM: Ordered/Entered in error Performed By: #### L 3100.3425, L3400.8000, L7000.0750, L3200.1100, L3200.0500, L5500.0550 #### [facility] [address] [place], [address] MCV Normal 81-99 [facility] Comment on above: Result Comment: Canc elled via OM: Ordered/Entered in error Performed By: #### L 3100.3425, L3400.8000, L7000.0750, L3200.1100, L3200.0500, L5500.0550 #### [facility] [address] [place], [address] NEUT% Normal 47-70 [facility] Comment on above: Result Comment: Canc elled via OM: Ordered/Entered in error Performed By: #### L 3100.3425, L3400.8000, L7000.0750, L3200.1100, L3200.0500, L5500.0550 #### [facility] [address] [place], [address] PLT Normal 150-450 [facility] Comment on above: Result Comment: Canc elled via OM: Ordered/Entered in error Performed By: #### L 3100.3425, L3400.8000, L7000.0750, L3200.1100, L3200.0500, L5500.0550 #### [facility] [address] [place], [address] RBC Normal 4.2-5.4 [facility] Comment on above: Result Comment: Canc elled via OM: Ordered/Entered in error Performed By: #### L 3100.3425, L3400.8000, L7000.0750, L3200.1100, L3200.0500, L5500.0550 #### [facility] [address] [place], [address] RDW CV Normal 11.6-14.6 [facility] Comment on above: Result Comment: Canc elled via OM: Ordered/Entered in error Performed By: #### L 3100.3425, L3400.8000, L7000.0750, L3200.1100, L3200.0500, L5500.0550 #### [facility] [address] [place], [address] RDW SD Normal 35.1-43.9 [facility] Comment on above: Result Comment: Canc elled via OM: Ordered/Entered in error Performed By: #### L 3100.3425, L3400.8000, L7000.0750, L3200.1100, L3200.0500, L5500.0550 #### [facility] [address] [place], [address] WBC Normal 4.4-11.0 [facility] Comment on above: Result Comment: Canc elled via OM: Ordered/Entered in error Performed By: #### L 3100.3425, L3400.8000, L7000.0750, L3200.1100, L3200.0500, L5500.0550 #### [facility] [address] [place], [address] Absolute Lymph 2.31 X10 3/uL Normal 0.83-4.51 [facility] Comment on above: Performed By: #### L 3100.3425, L3400.8000, L7000.0750, L3200.1100, L3200.0500, L5500.0550 #### [facility] [address] [place], [address] Absolute Neut 8.0 X10 3/uL High 2.0-7.7 [facility] Comment on above: Performed By: #### L 3100.3425, L3400.8000, L7000.0750, L3200.1100, L3200.0500, L5500.0550 #### [facility] [address] [place], [address] Basophils/100 WBC (Bld) 0.1 % Normal 0-1 [facility] Comment on above: Performed By: #### L 3100.3425, L3400.8000, L7000.0750, L3200.1100, L3200.0500, L5500.0550 #### [facility] [address] [place], [address] Eosinophils/100 WBC (Bld) 0.0 % Normal 0-5 [facility] Comment on above: Performed By: #### L 3100.3425, L3400.8000, L7000.0750, L3200.1100, L3200.0500, L5500.0550 #### [facility] [address] [place], [address] Erythrocyte distribution width (RBC) [Ratio] 14.6 % Normal 11.6-14.6 [facility] Comment on above: Performed By: #### L 3100.3425, L3400.8000, L7000.0750, L3200.1100, L3200.0500, L5500.0550 #### [facility] [address] [place], [address] Hematocrit (Bld) [Volume fraction] 27.1 % Low 37-47 [facility] Comment on above: Performed By: #### L 3100.3425, L3400.8000, L7000.0750, L3200.1100, L3200.0500, L5500.0550 #### [facility] [address] [place], [address] Hemoglobin (Bld) [Mass/Vol] 8.6 g/dL Low 12.0-15.0 [facility] Comment on above: Performed By: #### L 3100.3425, L3400.8000, L7000.0750, L3200.1100, L3200.0500, L5500.0550 #### [facility] [address] [place], [address] IG% 1.500 High 0.0-0.9 [facility] Comment on above: Result Comment: IG% - Immature Granulocytes (promyelocytes, myelocytes and metamyelocytes) > 1% indicates that a LEFT SHIFT is Present. Performed By: #### L 3100.3425, L3400.8000, L7000.0750, L3200.1100, L3200.0500, L5500.0550 #### [facility] [address] [place], [address] Lymphocytes/100 WBC (Bld) 21.3 % Normal 19-41 [facility] Comment on above: Performed By: #### L 3100.3425, L3400.8000, L7000.0750, L3200.1100, L3200.0500, L5500.0550 #### [facility] [address] [place], [address] MCH (RBC) [Entitic mass] 28.6 pg Normal 27.0-32.0 [facility] Comment on above: Performed By: #### L 3100.3425, L3400.8000, L7000.0750, L3200.1100, L3200.0500, L5500.0550 #### [facility] [address] [place], [address] MCHC (RBC) [Mass/Vol] 31.7 g/dL Low 32-36 [facility] Comment on above: Performed By: #### L 3100.3425, L3400.8000, L7000.0750, L3200.1100, L3200.0500, L5500.0550 #### [facility] [address] [place], [address] MCV (RBC) [Entitic vol] 90.0 fL Normal 81-99 [facility] Comment on above: Performed By: #### L 3100.3425, L3400.8000, L7000.0750, L3200.1100, L3200.0500, L5500.0550 #### [facility] [address] [place], [address] Monocytes/100 WBC (Bld) 3.0 % Normal 0-10 [facility] Comment on above: Performed By: #### L 3100.3425, L3400.8000, L7000.0750, L3200.1100, L3200.0500, L5500.0550 #### [facility] [address] [place], [address] Neutrophils/100 WBC (Bld) 74.1 % High 47-70 [facility] Comment on above: Performed By: #### L 3100.3425, L3400.8000, L7000.0750, L3200.1100, L3200.0500, L5500.0550 #### [facility] [address] [place], [address] Nucleated RBC (Bld) [#/Vol] 0 10*3/uL Normal 0-5 [facility] Comment on above: Performed By: #### L 3100.3425, L3400.8000, L7000.0750, L3200.1100, L3200.0500, L5500.0550 #### [facility] [address] [place], [address] Platelet mean volume (Bld) [Entitic vol] 8.1 fL Normal 6.2-12.0 [facility] Comment on above: Performed By: #### L 3100.3425, L3400.8000, L7000.0750, L3200.1100, L3200.0500, L5500.0550 #### [facility] [address] [place], [address] Platelets (Bld) [#/Vol] 442 10*3/uL Normal 150-450 [facility] Comment on above: Performed By: #### L 3100.3425, L3400.8000, L7000.0750, L3200.1100, L3200.0500, L5500.0550 #### [facility] [address] [place], [address] RBC (Bld) [#/Vol] 3.01 10*6/uL Low 4.2-5.4 [facility] Comment on above: Performed By: #### L 3100.3425, L3400.8000, L7000.0750, L3200.1100, L3200.0500, L5500.0550 #### [facility] [address] [place], [address] RDW SD 47.3 fl High 35.1-43.9 [facility] Comment on above: Performed By: #### L 3100.3425, L3400.8000, L7000.0750, L3200.1100, L3200.0500, L5500.0550 #### [facility] [address] [place], [address] WBC (Bld) [#/Vol] 10.8 10*3/uL Normal 4.4-11.0 [facility] Comment on above: Performed By: #### L 3100.3425, L3400.8000, L7000.0750, L3200.1100, L3200.0500, L5500.0550 #### [facility] [address] [place], [address] Absolute Lymph 1.92 X10 3/uL Normal 0.83-4.51 [facility] Comment on above: Order Comment: Comme nts: collect 2 hours after transfusion Performed By: #### L 101.9900, L100.0100, L100.9950 #### [facility] [address] [place], [address] Absolute Neut 6.9 X10 3/uL Normal 2.0-7.7 [facility] Comment on above: Order Comment: Comme nts: collect 2 hours after transfusion Performed By: #### L 101.9900, L100.0100, L100.9950 #### [facility] [address] [place], [address] Basophils/100 WBC (Bld) 0.1 % Normal 0-1 [facility] Comment on above: Order Comment: Comme nts: collect 2 hours after transfusion Performed By: #### L 101.9900, L100.0100, L100.9950 #### [facility] [address] [place], [address] Eosinophils/100 WBC (Bld) 0.0 % Normal 0-5 [facility] Comment on above: Order Comment: Comme nts: collect 2 hours after transfusion Performed By: #### L 101.9900, L100.0100, L100.9950 #### [facility] [address] [place], [address] Erythrocyte distribution width (RBC) [Ratio] 14.8 % High 11.6-14.6 [facility] Comment on above: Order Comment: Comme nts: collect 2 hours after transfusion Performed By: #### L 101.9900, L100.0100, L100.9950 #### [facility] [address] [place], [address] Hematocrit (Bld) [Volume fraction] 27.1 % Low 37-47 [facility] Comment on above: Order Comment: Comme nts: collect 2 hours after transfusion Performed By: #### L 101.9900, L100.0100, L100.9950 #### [facility] [address] [place], [address] Hemoglobin (Bld) [Mass/Vol] 8.4 g/dL Low 12.0-15.0 [facility] Comment on above: Order Comment: Comme nts: collect 2 hours after transfusion Performed By: #### L 101.9900, L100.0100, L100.9950 #### [facility] [address] [place], [address] IG% 1.300 High 0.0-0.9 [facility] Comment on above: Order Comment: Comme nts: collect 2 hours after transfusion Result Comment: IG% - Immature Granulocytes (promyelocytes, myelocytes and metamyelocytes) > 1% indicates that a LEFT SHIFT is Present. Performed By: #### L 101.9900, L100.0100, L100.9950 #### [facility] [address] [place], [address] Lymphocytes/100 WBC (Bld) 21.5 % Normal 19-41 [facility] Comment on above: Order Comment: Comme nts: collect 2 hours after transfusion Performed By: #### L 101.9900, L100.0100, L100.9950 #### [facility] [address] [place], [address] MCH (RBC) [Entitic mass] 27.5 pg Normal 27.0-32.0 [facility] Comment on above: Order Comment: Comme nts: collect 2 hours after transfusion Performed By: #### L 101.9900, L100.0100, L100.9950 #### [facility] [address] [place], [address] MCHC (RBC) [Mass/Vol] 31.0 g/dL Low 32-36 [facility] Comment on above: Order Comment: Comme nts: collect 2 hours after transfusion Performed By: #### L 101.9900, L100.0100, L100.9950 #### [facility] [address] [place], [address] MCV (RBC) [Entitic vol] 88.9 fL Normal 81-99 [facility] Comment on above: Order Comment: Comme nts: collect 2 hours after transfusion Performed By: #### L 101.9900, L100.0100, L100.9950 #### [facility] [address] [place], [address] Monocytes/100 WBC (Bld) 0.6 % Normal 0-10 [facility] Comment on above: Order Comment: Comme nts: collect 2 hours after transfusion Performed By: #### L 101.9900, L100.0100, L100.9950 #### [facility] [address] [place], [address] Neutrophils/100 WBC (Bld) 76.5 % High 47-70 [facility] Comment on above: Order Comment: Comme nts: collect 2 hours after transfusion Performed By: #### L 101.9900, L100.0100, L100.9950 #### [facility] [address] [place], [address] Nucleated RBC (Bld) [#/Vol] 0 10*3/uL Normal 0-5 [facility] Comment on above: Order Comment: Comme nts: collect 2 hours after transfusion Performed By: #### L 101.9900, L100.0100, L100.9950 #### [facility] [address] [place], [address] Platelet mean volume (Bld) [Entitic vol] 8.0 fL Normal 6.2-12.0 [facility] Comment on above: Order Comment: Comme nts: collect 2 hours after transfusion Performed By: #### L 101.9900, L100.0100, L100.9950 #### [facility] [address] [place], [address] Platelets (Bld) [#/Vol] 399 10*3/uL Normal 150-450 [facility] Comment on above: Order Comment: Comme nts: collect 2 hours after transfusion Performed By: #### L 101.9900, L100.0100, L100.9950 #### [facility] [address] [place], [address] RBC (Bld) [#/Vol] 3.05 10*6/uL Low 4.2-5.4 [facility] Comment on above: Order Comment: Comme nts: collect 2 hours after transfusion Performed By: #### L 101.9900, L100.0100, L100.9950 #### [facility] [address] [place], [address] RDW SD 47.1 fl High 35.1-43.9 [facility] Comment on above: Order Comment: Comme nts: collect 2 hours after transfusion Performed By: #### L 101.9900, L100.0100, L100.9950 #### [facility] [address] [place], [address] WBC (Bld) [#/Vol] 9.0 10*3/uL Normal 4.4-11.0 [facility] Comment on above: Order Comment: Comme nts: collect 2 hours after transfusion Performed By: #### L 101.9900, L100.0100, L100.9950 #### [facility] [address] [place], [address] CRPon 01-12-2025 C-REACTIVE PROT 81.50 mg/L High 0.0-3.0 [facility] Comment on above: Performed By: #### L 3100.3425, L3400.8000, L7000.0750, L3200.1100, L3200.0500, L5500.0550 #### [facility] [address] [place], [address] Calculated total iron bindin g capacityOrdered By: Yoanna Vasques on 01-12-2025 Total Iron Binding Capacity 337 ug/dL 250-450 [facility] Clostridium difficile detect ion by polymerase chain reactionOrdered By: Ruben Galdamez on 01-12-2025 C. difficile DNA DARREN+probe Ql (Unsp spec) [facility] Comprehensive Metabolic Prof ilon 01-12-2025 Albumin [Mass/Vol] 2.7 g/dL Low 3.5-5.0 [facility] Comment on above: Performed By: #### L 3100.3425, L3400.8000, L7000.0750, L3200.1100, L3200.0500, L5500.0550 #### [facility] [address] [place], [address] Albumin/Globulin [Mass ratio] 0.5 {ratio} Low 0.9-2.4 [facility] Comment on above: Performed By: #### L 3100.3425, L3400.8000, L7000.0750, L3200.1100, L3200.0500, L5500.0550 #### [facility] [address] [place], [address] ALK PHOS 259 U/L High 35-104 [facility] Comment on above: Performed By: #### L 3100.3425, L3400.8000, L7000.0750, L3200.1100, L3200.0500, L5500.0550 #### [facility] [address] [place], [address] ALT [Catalytic activity/Vol] 19 U/L Normal <=34 [facility] Comment on above: Performed By: #### L 3100.3425, L3400.8000, L7000.0750, L3200.1100, L3200.0500, L5500.0550 #### [facility] [address] [place], [address] AST [Catalytic activity/Vol] 20 U/L Normal <=31 [facility] Comment on above: Performed By: #### L 3100.3425, L3400.8000, L7000.0750, L3200.1100, L3200.0500, L5500.0550 #### [facility] [address] [place], [address] Bilirubin [Mass/Vol] 0.33 mg/dL Normal 0.00-1.30 [facility] Comment on above: Performed By: #### L 3100.3425, L3400.8000, L7000.0750, L3200.1100, L3200.0500, L5500.0550 #### [facility] [address] [place], [address] BUN/CRE 11.0 RATIO Normal 10-20 [facility] Comment on above: Performed By: #### L 3100.3425, L3400.8000, L7000.0750, L3200.1100, L3200.0500, L5500.0550 #### [facility] [address] [place], [address] Calcium [Mass/Vol] 9.0 mg/dL Normal 7.6-11.0 [facility] Comment on above: Performed By: #### L 3100.3425, L3400.8000, L7000.0750, L3200.1100, L3200.0500, L5500.0550 #### [facility] [address] [place], [address] Chloride [Moles/Vol] 99 mmol/L Normal 98-108 [facility] Comment on above: Performed By: #### L 3100.3425, L3400.8000, L7000.0750, L3200.1100, L3200.0500, L5500.0550 #### [facility] [address] [place], [address] CO2 [Moles/Vol] 21.4 mmol/L Normal 21.0-32.0 [facility] Comment on above: Performed By: #### L 3100.3425, L3400.8000, L7000.0750, L3200.1100, L3200.0500, L5500.0550 #### [facility] [address] [place], [address] Creatinine [Mass/Vol] 0.42 mg/dL Low 0.70-1.20 [facility] Comment on above: Performed By: #### L 3100.3425, L3400.8000, L7000.0750, L3200.1100, L3200.0500, L5500.0550 #### [facility] [address] [place], [address] GAP 13 Normal 5-15 [facility] Comment on above: Performed By: #### L 3100.3425, L3400.8000, L7000.0750, L3200.1100, L3200.0500, L5500.0550 #### [facility] [address] [place], [address] GFR/1.73 sq M.predicted among non-blacks MDRD (S/P/Bld) [Vol rate/Area] 133 mL/min/{1.73_m2} Normal >60 [facility] Comment on above: Result Comment: mL/m in/1.73m2 CKD-EPI Creatinine Equation (2020) Performed By: #### L 3100.3425, L3400.8000, L7000.0750, L3200.1100, L3200.0500, L5500.0550 #### [facility] [address] [place], [address] Globulin (S) [Mass/Vol] 5.4 g/dL High 2.2-4.2 [facility] Comment on above: Performed By: #### L 3100.3425, L3400.8000, L7000.0750, L3200.1100, L3200.0500, L5500.0550 #### [facility] [address] [place], [address] Glucose [Mass/Vol] 123 mg/dL High 70-99 [facility] Comment on above: Performed By: #### L 3100.3425, L3400.8000, L7000.0750, L3200.1100, L3200.0500, L5500.0550 #### [facility] [address] [place], [address] Potassium [Moles/Vol] 4.1 mmol/L Normal 3.3-5.1 [facility] Comment on above: Performed By: #### L 3100.3425, L3400.8000, L7000.0750, L3200.1100, L3200.0500, L5500.0550 #### [facility] [address] [place], [address] Sodium [Moles/Vol] 133 mmol/L Normal 133-145 [facility] Comment on above: Performed By: #### L 3100.3425, L3400.8000, L7000.0750, L3200.1100, L3200.0500, L5500.0550 #### [facility] [address] [place], [address] T PROT 8.1 g/dL Normal 5.9-8.4 [facility] Comment on above: Performed By: #### L 3100.3425, L3400.8000, L7000.0750, L3200.1100, L3200.0500, L5500.0550 #### [facility] [address] [place], [address] Urea nitrogen [Mass/Vol] 5 mg/dL Normal 4-19 [facility] Comment on above: Performed By: #### L 3100.3425, L3400.8000, L7000.0750, L3200.1100, L3200.0500, L5500.0550 #### [facility] [address] [place], [place], [address] Erythrocyte Sed Rateon 01-12 SED RATE 44 mm/hr High 0-30 [facility] Comment on above: Order Comment: Comme nts: collect 2 hours after transfusion Performed By: #### L 3100.3425, L3400.8000, L7000.0750, L3200.1100, L3200.0500, L5500.0550 #### [facility] [address] [place], [address] Ferritinon 01-12-2025 Ferritin [Mass/Vol] 178 ng/mL Normal 22-378 [facility] Comment on above: Performed By: #### L 3100.3425, L3400.8000, L7000.0750, L3200.1100, L3200.0500, L5500.0550 #### [facility] [address] [place], [address] H AND P Exam - OB/GYNon 12-19 H&P Exam - [employer] [facility] Medical Records Department [address] [place] [address] H P Exam - [employer] 01/12/25 0937 MR#: [id number] Acct: [id number] Name: SHERI SOUTH Rep #: [id number] : 1990 34 From: Yoanna Salazar DO PCP: Dr. Lan Simmons MD Status:REG [facility] Location: [id number] HPI - General HPI Narrative SHERI SOUTH, is a 34 y/o @ 29 weeks [address] [facility] ER for an acute GI bleed secondary to Crohn's disease flair. She saw Yoanna Tejeda CNP in Dr. Galdamez's office. The patient denies loss of fluid, vaginal bleeding, or decreased movement. She was started on solumendrol 125 mg IV q 8 hrs by her and she states that since the first infusion her symptoms have started to clear up. She states that her bowel movements are not as bloody and her vasculitis cleared up. She just recently found out that she passed her glucola test and that her thyroid test was normal. She denies shortness of breath or chest pain. The information from her office visit yesterday with Yoanna Tejeda is as follows: - [facility], [facility], bleeding - started on Mesalamine labs at that time revealed a CRP of 18.74 and ESR labs at that time revealed a CRP of 18.74 and ESR 95 she was also anemic with a hemoglobin of 9.7. Imaging and a colonoscopy revealed mild pancolitis confirmed by bowel biopsy to be chronic active colitis with varying degrees of severity throughout the colon. She was treated with prednisone and mesalamine which initially alleviated her symptoms but her condition worsen when the prednisone was tapered. 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 A positive C. difficile test led to treatment with p.o. vancomycin however she was toxin negative. In February 2024 had a perineal necrotizing soft tissue infection and per the op note this was actually an anal fistula or abscess which gave concern that her IBD was actually Crohn's and not an ulcerative colitis. - abscess and put in 3 drains - drains came out end of March, 1 of 3 abscess healed - crohn's diagnosed about 18 months ago - she is experiencing rectal bleeding that began a few weeks ago During an outpatient GI visit February 2024 patient had reported resolution of symptoms and was not having any diarrhea or rectal bleeding. She was not on any steroids at that time. CRP was normal at 0.58 but her fecal calprotectin was elevated to 974. Her CBC also showed microcytic hyperchromic anemia consistent with ADRIEL with a hemoglobin of 6.1 and received a transfusion. She had a colonoscopy performed April 2024 which showed inflammation in the entire colon worst in the rectosigmoid, along with involvement of the terminal ileum. Biopsies showed chronic active enteritis in the TI and active chronic colitis in all segments of the colon. During outpatient GI visit 05/24/2024 she was having bloody diarrhea along with urgency and started on 2-month prednisone taper taper (starting at 40 mg) with improvement of symptoms and decision was made to start Humira. She is currently getting it through patient assistance program from the [employer] as she has community insurance through the [employer] and due to several delays in initiating biologic therapy she was off of prednisone for 1 month before receiving her first induction dose of Humira on 08/30/2024 - started Humira August 2024 - she saw Dr. Mann during admission September 2024 She was admitted to [facility] on 09/27/2024 4 para 2 at 14 weeks gestation with a Crohn's flare presenting with nausea, vomiting and hematochezia. C. difficile and stool pathogen panels were unremarkable GI was consulted she received IV methylprednisone 20 mg every 8 hours 09/27 through 09/30 and transition to p.o. prednisone steroid taper on 10/01/2024. Throughout admission, patient's hematochezia and diarrheal symptoms greatly improved. On 09/28/2024 an OB ultrasound was performed which confirmed stable she was discharged home on an oral steroid taper with plans to resume Humira every 2 weeks. Her prednisone taper started at 40 mg daily for 1 week and then decrease by 5 mg every week. Her reports her Humira level during admission was around 6. Without antibodies. Completing prednisone taper early November. She presents today with complaints of bloody stools, loss of appetite, 20 pound weight loss, intermittent emesis with an overall improvement in diarrhea. 5 - she is now having blood in stool, loss of appetite - weight loss - diarrhea - emesis - weight is down 20lbs since beginning of - since starting Humira she has noted improvement in diarrhea - since starting Humira she reports having a gush of mucus, followed by st (more content not included)... Normal [facility] Hemoglobin (Reticulocytes) [ Entitic mass]Ordered By: Yoanna Vasques on 01-12-2025 Reticulocyte Hemoglobin Equivalent 30.1 pg 30-35 [facility] IgEOrdered By: Ruben roa on 01-12-2025 IgE 6 IU/mL 6-495 [facility] Immature reticulocyte fracti onOrdered By: Yoanna Vasques on 01-12-2025 Immature Reticulocyte Fraction 22.90 % High 3.00-15.90 [facility] Interpretation of serum or p lasma protein pattern by immunofixation (narrative resultOrdered By: Ruben Galdamez on 01-12-2025 Protein Fractions Immunofixation Noah [Interp] Not Observed g/dL Not Observed [facility] Iron measurement (mass/mass) Ordered By: Yoanna Vasques on 01-12-2025 Iron (Unsp spec) [Mass/Mass] 54 ug/dL 50-170 [facility] Iron [Mass/Vol] 54 ug/dL Normal 50-170 [facility] Comment on above: Performed By: #### L 3100.3425, L3400.8000, L7000.0750, L3200.1100, L3200.0500, L5500.0550 #### [facility] [place], [address] Iron saturation [Mass fracti on]Ordered By: Yoanna Vasques on 01-12-2025 Iron Saturation 16.0 % 13-59 [facility] Iron+Iron Binding Capacityon 01-12-2025 UIBC 283 ug/dL Normal 228-428 [facility] Comment on above: Performed By: #### L 3100.3425, L3400.8000, L7000.0750, L3200.1100, L3200.0500, L5500.0550 #### [facility] [address] [place], [address] Laboratory - Miscellaneous t estsOrdered By: Ruben Galdamez on 01-12-2025 Service comment (Unsp spec) [Interp] Comment . [facility] Comment on above: Levels of Specific I gE Class Description of Class ----- < 0.10 0 Negative 0.10 - 0.31 0/I Equivocal/Low 0.32 - 0.55 I Low 0.56 - 1.40 II Moderate 1.41 - 3.90 III High 3.91 - 19.00 IV Very High 19.01 - 100.00 V Very High >100.00 Very High Lactoferrin IA Ql (Stl)Order ed By: Ruben Galdamez on 01-12-2025 Stool Lactoferrin [facility] Lipase measurementOrdered By : Yoanna Vasques on 01-12-2025 Lipase [Catalytic activity/Vol] 16 U/L 13-75 [facility] Comment on above: Please note:LIPASE r evised reference range effective 22. New Lipase methodology. Expected to produce lower values than the previous assay method. NEW Reference Range: 13 - 75 U/L Result Comment: Connie castillo note: LIPASE revised reference range effective 22. New Lipase methodology. Expected to produce lower values than the previous assay method. NEW Reference Range: 13 - 75 U/L Performed By: #### L 3100.3425, L3400.8000, L7000.0750, L3200.1100, L3200.0500, L5500.0550 #### [facility] [address] [place], [address] MR/CON.PCM.GIon 01-12-2025 MR/CON.PCM.GI [facility] Medical Records Department [address] [place] [address] Consultation - GI 01/12/25 1857 MR#: [id number] Acct: [id number] Name: SHERI SOUTH Rep #: [id number] : 1990 34 From: Ruben Friend DO PCP: Dr. Lan Simmons MD Status:REG CLI [facility] Consult Data Date of Consult: 01/12/25 HPI Narrative Reason for Consultation: Crohn's flare HPI Narrative: 34-year-old female, G4, P2 at approximately 29 weeks gestation presents with abnormal labs. She has history of Crohn disease and takes Humira. She has an SIEBEL ADMINISTRATOR in [place] and plans on delivering at [facility]. She presents the direction of the gastroenterology CHARLIE Yoanna Tejeda who evaluated her yesterday. Patient's states that with her Crohn disease, the SIEBEL ADMINISTRATOR recommended a electrical and instrumentation mechanic closer than the one they usually see at [facility]. Patient relates history that she has had bloody stool and cramping with bowel movements for the last few weeks. She was seen by gastroenterology yesterday and was noted to have a hemoglobin of 8.6 with CRP of 103. Alk phos is elevated to 84 and it was recommended that she be admitted to the hospital for Solu-Medrol 125 mg every 8 hours. Patient denies any vaginal bleeding or cramping. She and her also relate history that it was suggested that with her Crohn disease and that she is on Humira that she be evaluated by highway commissioner. They had an appointment with someone at [facility] who advised them that there is no need for her to deliver at [place] and that she has not high risk and that she could deliver in [place]. She presents today for admission for IV steroids and control of her Crohn's flare. [facility] Medical History delivery delivered Abscess Blood transfusion, without reported diagnosis Home Medications ???Medication ???Instructions ???Recorded ???Last Taken ???Type adalimumab 40 mg/0.4 mL 40 mg subcut Q2W 01/11/25 01/08/25 History subcutaneous syringe kit (Humira(CF)) [id number] 18 mg-folic 1 tab PO DAILY 01/11/25 Unknown H istory 400 mcg-vit K1 120 mcg-herbal tablet Allergy/AdvReac Type Severity Reaction Status Date / Time mesalamine AdvReac Intermediate Diarrhea Verified 01/11/25 14:15 Family History no significant family his Social History household members: spouse and children Smoking Status: Never smoker alcohol intake: never substance use type: does not use hubert/lutheran: Mennonite ROS Constitutional Constitutional: Denies fatigue, fever(s), poor appetite, weight gain or weight loss Gastrointestinal Gastrointestinal: Denies belching, bloating, change in bowel habits, change in stool character, chewing difficulty, coffee ground emesis, constipation, cramping, diarrhea, dyspepsia, dysphagia, early satiety, excessive flatus, fecal incontinence, heartburn, hematemesis, hematochezia, hemorrhoids, loose stools, melena, nausea, odynophagia, rectal bleeding, tenesmus, vomiting or weight changes Physical Exam Const alert, oriented x3, no apparent distress and healthy appearing General Appearance: cooperative; Negative for anxious HEENT normocephalic Face and Sinus: normal facial exam Eyes EOMs intact bilaterally and no scleral icterus General Eye: normal appearance of both eyes Neck full ROM and supple Lymph Lymphatic: no lymphadenopathy noted Chest Chest: abnormal inspection of the chest Resp normal respiratory effort Effort and Inspection: able to speak in complete sentences Cardio regular rate GI soft to palpation and non-tender Inspection: gravid Palpation: soft; Negative for tender Back/Spine no CVA tenderness Extremity normal to inspection, full ROM and no clubbing, cyanosis or edema General Extremity: Negative for calf tenderness or edema Skin Lesions: no lesions Rashes: no rashes Psych mental status grossly normal Lab / Micro Data 01/12/25 10:15 01/12/25 10:15 Labs: Laboratory Results - last 24 hr 01/11/25 20:15: WBC 9.1, RBC 3.05 L, Hgb 8.5 L, Hct 27.1 L, MCV 88.9, MCH 27.9, MCHC 31.4 L, RDW Std Deviation 48.0 H, RDW Coeff of Shira 15.0 H, Plt Count 475 H, MPV 7.7, Immature Gran % (Auto) 1.100 H, Neut % (Auto) 56.2, Lymph % (Auto) 32.6, Sequoyah % (Auto) 5.0, Eos % (Auto) 4.8, Baso % (Auto) 0.3, Absolute Neuts (auto) 5.1, Absolute Lymphs (auto) 2.97, Nucleated RBC % 0, Sodium 136, Potassium 3.7, Chloride 100, Carbon Dioxide 22.9, Anion Gap 13, BUN 6, Creatinine 0.49 L, Est GFR (MDRD) Non- Af 127, BUN/Creatinine Ratio 12.2, Glucose 119 H, Calcium 8.9, Total Bilirubin 0.44, AST 29, ALT 22, Alkaline Phosphatase 271 H, Total Protein 8.2, Albumin 2. (more content not included)... Normal [facility] No Panel InformationOrdered By: Ruben Galdamez on 01-12-2025 Addendum Document Comment . [facility] Comment on above: Protein electrophore sis scan will follow via computer,mail, or senior mechanical estimator delivery. Hepatitis C Antibody Comment Comment . [facility] Comment on above: Not infected with HC V unless early or acute infection issuspected (which may be delayed in an immunocompromisedindividual), or other evidence exists to indicate HCVinfection. No Panel InformationOrdered By: Yoanna Vasques on 01-12-2025 Unsaturated Iron Binding Capacity 283 ug/dL 228-428 [facility] Qualitative QuantiFERON-TB g old in tube testOrdered By: Ruben Galdamez on 01-12-2025 M. tuberculosis tuberculin stim IFN-g Ql (Bld) 0.03 IU/mL . [facility] Retic Panelon 01-12-2025 IM RET FRACTION 22.90 High 3.00-15.90 [facility] Comment on above: Order Comment: Comme nts: collect 2 hours after transfusion Performed By: #### L 3100.1955, L3400.8000, L7000.0750, L3200.1100, L3200.0500, L5500.0550 #### [facility] [address] [place], [place], [id number] RET-HE 30.1 pg Normal 30-35 [facility] Comment on above: Order Comment: Comme nts: collect 2 hours after transfusion Performed By: #### L 3100.3425, L3400.8000, L7000.0750, L3200.1100, L3200.0500, L5500.0550 #### [facility] [address] [place], [place], [id number] Retic Count 2.48 High 0.5-1.5 [facility] Comment on above: Order Comment: Comme nts: collect 2 hours after transfusion Performed By: #### L 3100.3425, L3400.8000, L7000.0750, L3200.1100, L3200.0500, L5500.0550 #### [facility] [address] [place], [place], [id number] Reticulocyte hemoglobin equi valent (RET-He) measurementOrdered By: Yoanna Vasques on 01-12-2025 Hemoglobin (Reticulocytes) [Entitic mass] 30.1 pg 30-35 [facility] Reticulocytes Auto (Bld) [#/ Vol]Ordered By: Yoanna Vasques on 01-12-2025 Reticulocyte Count 2.48 % High 0.5-1.5 [facility] Reticulocytes/100 RBC (Bld) 2.48 % High 0.5-1.5 [facility] SCL-70 extractable nuclear A b Qn (S)Ordered By: Ruben Galdamez on 01-12-2025 Scl-70 (Scleroderma) Antibody TNP [facility] Comment on above: Test not performed Serum DNA double strand anti body assay (units/volume)Ordered By: Ruben Galdamez on 01-12-2025 DNA double strand Ab Qn (S) 1 [IU]/mL 0-9 [facility] Comment on above: Negative <5 Equivoca l 5 - 9 Positive >9 Serum IgG subclass 1 measure ment (mass/volume)Ordered By: Ruben Galdamez on 01-12-2025 IgG subclass 1 (S) [Mass/Vol] 895 mg/dL High 248-810 [facility] Serum IgG subclass 2 measure ment (mass/volume)Ordered By: Ruben Galdamez on 01-12-2025 IgG subclass 2 (S) [Mass/Vol] 874 mg/dL High 130-555 [facility] Serum IgG subclass 3 measure ment (mass/volume)Ordered By: Ruben Galdamez on 01-12-2025 IgG subclass 3 (S) [Mass/Vol] 181 mg/dL High 15-102 [facility] Serum Scl-70 antibody assay (units/volume)Ordered By: Ruben Galdamez on 01-12-2025 SCL-70 extractable nuclear Ab Qn (S) <0.2 AI 0.0-0.9 [facility] Comment on above: Previous reported re sult: TNP AIEdited by: ZORAIDA on 01/15/25:1008 AMENDED REPORT 01/15/25 1008 ANTISCLER previously reported as: Test not performed Serum beef IgE antibody assa y (units/volume)Ordered By: Ruben Galdamez on 01-12-2025 Beef IgE Qn (S) <0.10 kU/L Class 0 [facility] Serum classic neutrophil cyt oplasmic antibody assay (units/volume)Ordered By: Ruben Galdamez on 01-12-2025 Neutrophil cytoplasmic Ab.classic Qn (S) <1:20 titer Neg:<1:20 [facility] Serum codfish IgE antibody a ssay (units/volume)Ordered By: Ruben Galdamez on 01-12-2025 Codfish IgE Qn (S) <0.10 kU/L Class 0 [facility] Serum corn IgE antibody assa y (units/volume)Ordered By: Ruben Galdamez on 01-12-2025 [place] IgE Qn (S) <0.10 kU/L Class 0 [facility] Serum cow milk IgE antibody assay (units/volume)Ordered By: Ruben Galdamez on 01-12-2025 Cow milk IgE Qn (S) <0.10 kU/L Class 0 [facility] Serum or plasma IgA measurem ent (mass/volume)Ordered By: Ruben Galdamez on 01-12-2025 IgA [Mass/Vol] 375 mg/dL High 87-352 [facility] Serum or plasma IgG measurem ent (mass/volume)Ordered By: Ruben Galdamez on 01-12-2025 IgG [Mass/Vol] 2181 mg/dL High 586-1602 [facility] IgG [Mass/Vol] TNP [facility] Comment on above: Test not performed Serum or plasma alpha 1 glob ulin measurement by electrophoresis (mass/volume)Ordered By: Ruben Galdamez on 01-12-2025 Alpha 1 globulin Elph [Mass/Vol] 0.6 g/dL High 0.0-0.4 [facility] Alpha 1 globulin Elph [Mass/Vol] 1.0 g/dL 0.4-1.0 [facility] Serum or plasma amylase vish urement (enzymatic activity/volume)Ordered By: Yoanna Vasques on 01-12-2025 Amylase [Catalytic activity/Vol] 18 U/L Low 28-100 [facility] Serum or plasma beta globuli n measurement by electrophoresis (mass/volume)Ordered By: Ruben Galdamez on 01-12-2025 Beta globulin Elph [Mass/Vol] 1.2 g/dL 0.7-1.3 [facility] Serum or plasma ferritin jg surement (mass/volume)Ordered By: Yoanna Vasques on 01-12-2025 Ferritin [Mass/Vol] 178 ng/mL 22-378 [facility] Serum or plasma gamma globul in measurement by electrophoresis (mass/volume)Ordered By: Ruben Galdamez on 01-12-2025 Gamma globulin Elph [Mass/Vol] 2.3 g/dL High 0.4-1.8 [facility] Serum or plasma hepatitis B virus surface antigen detection by immunoassayOrdered By: Ruben Galdamez on 01-12-2025 HBV surface Ag IA Ql Negative Negative [facility] Serum or plasma immunoelectr ophoresis interpretation (nominal result)Ordered By: Ruben Galdamez on 01-12-2025 Interpretation IEP [Interp] Comment . [facility] Comment on above: No monoclonality det ected. Serum or plasma iron saturat ion measurement (mass fraction)Ordered By: Yoanna Vasques on 01-12-2025 Iron saturation [Mass fraction] 16.0 % 13-59 [facility] Serum or plasma protein vish urement (mass/volume)Ordered By: Ruben Galdamez on 01-12-2025 Protein [Mass/Vol] 7.1 g/dL 6.0-8.5 [facility] Serum peanut IgE antibody as say (units/volume)Ordered By: Ruben Galdamez on 01-12-2025 Peanut IgE Qn (S) <0.10 kU/L Class 0 [facility] Serum perinuclear neutrophil cytoplasmic antibody titer by immunofluorescenceOrdered By: Ruben Galdamez on 01-12-2025 Neutrophil cytoplasmic Ab.perinuclear IF (S) [Titer] <1:20 titer Neg:<1:20 [facility] Comment on above: The presence of posi tive fluorescence exhibiting P-ANCA orC-ANCA patterns alone is not specific for the diagnosis ofWegener's Granulomatosis (WG) or microscopic polyangiitis.Decisions about treatment should not be based solely onANCA IFA results. The [employer] ANCA [employer] Consensusrecommends follow up testing of positive sera with both WI-3 and MPO-ANCA enzyme immunoassays. As many as 5% serumsamples are positive only by EIA. Ref. AM J Clin [id number];111:507-513. Serum pork IgE antibody assa y (units/volume)Ordered By: Ruben Galdamez on 01-12-2025 Pork IgE Qn (S) <0.10 kU/L Class 0 [facility] Serum salmon IgE antibody as say (units/volume)Ordered By: Ruben Galdamez on 01-12-2025 [place] IgE Qn (S) <0.10 kU/L Class 0 [facility] Serum soybean IgE antibody a ssay (units/volume)Ordered By: Ruben Galdamez on 01-12-2025 Soybean IgE Qn (S) <0.10 kU/L Class 0 [facility] Serum tuna IgE antibody assa y (units/volume)Ordered By: Ruben Galdamez on 01-12-2025 Tuna IgE Qn (S) <0.10 kU/L Class 0 [facility] Serum wheat IgE antibody ass ay (units/volume)Ordered By: Ruben Galdamez on 01-12-2025 Wheat IgE Qn (S) <0.10 kU/L Class 0 [facility] Serum whole egg IgE antibody assay (units/volume)Ordered By: Ruben Galdamez on 01-12-2025 Whole Egg IgE Qn (S) <0.10 kU/L Class 0 [facility] Comment on above: Performed at: [facility] [address] [id number] Director: Vitaly Boswell MD, Phone: [phone] Stool enteric pathogen panel by probe and target amplification methodOrdered By: Ruben Galdamez on 01-12-2025 Enteric Bacteriology [facility] Stool lactoferrin detection by immunoassayOrdered By: Ruben Galdamez on 01-12-2025 Lactoferrin IA Ql (Stl) [facility] Stool pancreatic elastase me asurement (mass/mass)Ordered By: Ruben Galdamez on 01-12-2025 Elastase.pancreatic (Stl) [Mass/Mass] TNP [facility] Comment on above: Test not performedRe sult Units: ug Elast./gTest not performed. No stool specimen received.CONTACTED YOUR FACILITY VIA EMAIL ON 01-15-2025 Severe Pancreatic Insufficiency: <100 Moderate Pancreatic Insufficiency: 100 - 200 Normal: >200 TransferrinOrdered By: Darcy Vasques on 01-12-2025 Transferrin [Mass/Vol] 275 mg/dL 192-364 [facility] Comment on above: Performed at: [facility] [address] [id number] Director: Pepe Tolentino PhD, Phone: [phone] Type AND Screenon 01-12-2025 Ab SCREEN GEL TNP Normal [facility] Comment on above: Order Comment: CMV N EG? YNumber of units to transfuse: 1Is there a >20% drop in pt's BP? NIs the pt's CVP (central venous pressure) <3 cm/H2O? NIs the EBL >/= 1000ml in adults or >/= 12ml/kg in children?NIs there an orthostatic change in pt's BP(SBP drop>10mmHg)? YIs pt's HR > 100 bpm? YReason for Ordering Blood: AcuteAre the blood/blood products to be transfused? YIs the patient having/had surgery? NHas pt arrived? Saima Gandhi Performed By: #### L 3100.3425, L3400.8000, L7000.0750, L3200.1100, L3200.0500, L5500.0550 #### [facility] [address] [place], [address] ABO and Rh group Nom (Bld) Blood group AB Rh(D) positive Normal [facility] Comment on above: Order Comment: CMV N EG? YNumber of units to transfuse: 1Is there a >20% drop in pt's BP? NIs the pt's CVP (central venous pressure) <3 cm/H2O? NIs the EBL >/= 1000ml in adults or >/= 12ml/kg in children?NIs there an orthostatic change in pt's BP(SBP drop>10mmHg)? YIs pt's HR > 100 bpm? YReason for Ordering Blood: AcuteAre the blood/blood products to be transfused? YIs the patient having/had surgery? NHas pt arrived? Saima Gandhi Performed By: #### L 3100.3425, L3400.8000, L7000.0750, L3200.1100, L3200.0500, L5500.0550 #### [facility] [address] [place], [address] Absolute lymphocyte countOrd ered By: Yoanna Tejeda on 01-11-2025 Lymphocytes Auto (Unsp spec) [#/Vol] 3.11 10*3/uL 0.83-4.51 [facility] Absolute neutrophil countOrd ered By: ED PROVIDER on 01-11-2025 Neutrophils (Bld) [#/Vol] 5.1 10*3/uL 2.0-7.7 [facility] Absolute neutrophil countOrd ered By: Yoanna Tejeda on 01-11-2025 Neutrophils (Bld) [#/Vol] 4.7 10*3/uL 2.0-7.7 [facility] Anion gap in Serum or Plasma Ordered By: Tony Mendoza on 01-11-2025 Anion gap [Moles/Vol] 13 mmol/L 01-31 [facility] Anion gap in Serum or Plasma Ordered By: Yoanna Tejeda on 01-11-2025 Anion gap [Moles/Vol] 11 mmol/L 01-31 [facility] Automated lymphocyte count a s percentage of total leukocytesOrdered By: Yoanna Tejeda on 01-11-2025 Lymphocytes/100 WBC Auto (Unsp spec) 35.4 % [facility] BUN/creatinine ratioOrdered By: Tony Mendoza on 01-11-2025 Urea nitrogen/Creatinine [Mass ratio] 12.2 mg/mg 07-08 [facility] BUN/creatinine ratioOrdered By: Yoanna Tejeda on 01-11-2025 Urea nitrogen/Creatinine [Mass ratio] 11.0 mg/mg 07-08 [facility] Basophil percentageOrdered B y: ED PROVIDER on 01-11-2025 Basophils/100 WBC (Bld) 0.3 % 0- [facility] Basophil percentageOrdered B y: Yoanna Tejeda on 01-11-2025 Basophils/100 WBC (Bld) 0.2 % 0- [facility] Bilirubin, totalOrdered By: Tony Mendoza on 01-11-2025 Bilirubin [Mass/Vol] 0.44 mg/dL 0.00-1.30 [facility] Bilirubin, totalOrdered By: Yoanna Tejeda on 01-11-2025 Bilirubin [Mass/Vol] 0.42 mg/dL 0.00-1.30 [facility] CBC W/Diff, Automatedon 12-19 Absolute Lymph 2.97 X10 3/uL Normal 0.83-4.51 [facility] Comment on above: Performed By: #### L 3100.3425, L3400.8000, L7000.0750, L3200.1100, L3200.0500, L5500.0550 #### [facility] [address] [place] [address]. [place], [address] Absolute Neut 5.1 X10 3/uL Normal 2.0-7.7 [facility] Comment on above: Performed By: #### L 3100.3425, L3400.8000, L7000.0750, L3200.1100, L3200.0500, L5500.0550 #### [facility] [address] [place], [address] Basophils/100 WBC (Bld) 0.3 % Normal 0-1 [facility] Comment on above: Performed By: #### L 3100.3425, L3400.8000, L7000.0750, L3200.1100, L3200.0500, L5500.0550 #### [facility] [address] [place], [address] Eosinophils/100 WBC (Bld) 4.8 % Normal 0-5 [facility] Comment on above: Performed By: #### L 3100.3425, L3400.8000, L7000.0750, L3200.1100, L3200.0500, L5500.0550 #### [facility] [address] [place], [address] Erythrocyte distribution width (RBC) [Ratio] 15.0 % High 11.6-14.6 [facility] Comment on above: Performed By: #### L 3100.3425, L3400.8000, L7000.0750, L3200.1100, L3200.0500, L5500.0550 #### [facility] [address] [place], [address] Hematocrit (Bld) [Volume fraction] 27.1 % Low 37-47 [facility] Comment on above: Performed By: #### L 3100.3425, L3400.8000, L7000.0750, L3200.1100, L3200.0500, L5500.0550 #### [facility] [address] [place], [address] Hemoglobin (Bld) [Mass/Vol] 8.5 g/dL Low 12.0-15.0 [facility] Comment on above: Performed By: #### L 3100.3425, L3400.8000, L7000.0750, L3200.1100, L3200.0500, L5500.0550 #### [facility] [address] [place], [address] IG% 1.100 High 0.0-0.9 [facility] Comment on above: Result Comment: IG% - Immature Granulocytes (promyelocytes, myelocytes and metamyelocytes) > 1% indicates that a LEFT SHIFT is Present. Performed By: #### L 3100.3425, L3400.8000, L7000.0750, L3200.1100, L3200.0500, L5500.0550 #### [facility] [address] [place], [address] Lymphocytes/100 WBC (Bld) 32.6 % Normal 19-41 [facility] Comment on above: Performed By: #### L 3100.3425, L3400.8000, L7000.0750, L3200.1100, L3200.0500, L5500.0550 #### [facility] [address] [place], [address] MCH (RBC) [Entitic mass] 27.9 pg Normal 27.0-32.0 [facility] Comment on above: Performed By: #### L 3100.3425, L3400.8000, L7000.0750, L3200.1100, L3200.0500, L5500.0550 #### [facility] [address] [place], [address] MCHC (RBC) [Mass/Vol] 31.4 g/dL Low 32-36 [facility] Comment on above: Performed By: #### L 3100.3425, L3400.8000, L7000.0750, L3200.1100, L3200.0500, L5500.0550 #### [facility] [address] [place], [address] MCV (RBC) [Entitic vol] 88.9 fL Normal 81-99 [facility] Comment on above: Performed By: #### L 3100.3425, L3400.8000, L7000.0750, L3200.1100, L3200.0500, L5500.0550 #### [facility] [address] [place], [address] Monocytes/100 WBC (Bld) 5.0 % Normal 0-10 [facility] Comment on above: Performed By: #### L 3100.3425, L3400.8000, L7000.0750, L3200.1100, L3200.0500, L5500.0550 #### [facility] [address] [place], [address] Neutrophils/100 WBC (Bld) 56.2 % Normal 47-70 [facility] Comment on above: Performed By: #### L 3100.3425, L3400.8000, L7000.0750, L3200.1100, L3200.0500, L5500.0550 #### [facility] [address] [place], [address] Nucleated RBC (Bld) [#/Vol] 0 10*3/uL Normal 0-5 [facility] Comment on above: Performed By: #### L 3100.3425, L3400.8000, L7000.0750, L3200.1100, L3200.0500, L5500.0550 #### [facility] [address] [place], [address] Platelet mean volume (Bld) [Entitic vol] 7.7 fL Normal 6.2-12.0 [facility] Comment on above: Performed By: #### L 3100.3425, L3400.8000, L7000.0750, L3200.1100, L3200.0500, L5500.0550 #### [facility] [address] [place], [address] Platelets (Bld) [#/Vol] 475 10*3/uL High 150-450 [facility] Comment on above: Performed By: #### L 3100.3425, L3400.8000, L7000.0750, L3200.1100, L3200.0500, L5500.0550 #### [facility] [address] [place], [address] RBC (Bld) [#/Vol] 3.05 10*6/uL Low 4.2-5.4 [facility] Comment on above: Performed By: #### L 3100.3425, L3400.8000, L7000.0750, L3200.1100, L3200.0500, L5500.0550 #### [facility] [address] [place], [address] RDW SD 48.0 fl High 35.1-43.9 [facility] Comment on above: Performed By: #### L 3100.3425, L3400.8000, L7000.0750, L3200.1100, L3200.0500, L5500.0550 #### [facility] [address] [place], [address] WBC (Bld) [#/Vol] 9.1 10*3/uL Normal 4.4-11.0 [facility] Comment on above: Performed By: #### L 3100.3425, L3400.8000, L7000.0750, L3200.1100, L3200.0500, L5500.0550 #### [facility] [address] [place], [address] Absolute Lymph 3.11 X10 3/uL Normal 0.83-4.51 [facility] Comment on above: Performed By: #### L 3100.3425, L3400.8000, L7000.0750, L3200.1100, L3200.0500, L5500.0550 #### [facility] [address] [place], [address] Absolute Neut 4.7 X10 3/uL Normal 2.0-7.7 [facility] Comment on above: Performed By: #### L 3100.3425, L3400.8000, L7000.0750, L3200.1100, L3200.0500, L5500.0550 #### [facility] [address] [place], [address] Basophils/100 WBC (Bld) 0.2 % Normal 0-1 [facility] Comment on above: Performed By: #### L 3100.3425, L3400.8000, L7000.0750, L3200.1100, L3200.0500, L5500.0550 #### [facility] [address] [place], [address] Eosinophils/100 WBC (Bld) 4.7 % Normal 0-5 [facility] Comment on above: Performed By: #### L 3100.3425, L3400.8000, L7000.0750, L3200.1100, L3200.0500, L5500.0550 #### [facility] [address] [place], [address] Erythrocyte distribution width (RBC) [Ratio] 15.0 % High 11.6-14.6 [facility] Comment on above: Performed By: #### L 3100.3425, L3400.8000, L7000.0750, L3200.1100, L3200.0500, L5500.0550 #### [facility] [address] [place], [address] Hematocrit (Bld) [Volume fraction] 28.0 % Low 37-47 [facility] Comment on above: Performed By: #### L 3100.3425, L3400.8000, L7000.0750, L3200.1100, L3200.0500, L5500.0550 #### [facility] [address] [place], [address] Hemoglobin (Bld) [Mass/Vol] 8.6 g/dL Low 12.0-15.0 [facility] Comment on above: Performed By: #### L 3100.3425, L3400.8000, L7000.0750, L3200.1100, L3200.0500, L5500.0550 #### [facility] [address] [place], [address] IG% 0.800 Normal 0.0-0.9 [facility] Comment on above: Result Comment: IG% - Immature Granulocytes (promyelocytes, myelocytes and metamyelocytes) > 1% indicates that a LEFT SHIFT is Present. Performed By: #### L 3100.3425, L3400.8000, L7000.0750, L3200.1100, L3200.0500, L5500.0550 #### [facility] [address] [place], [address] Lymphocytes/100 WBC (Bld) 35.4 % Normal 19-41 [facility] Comment on above: Performed By: #### L 3100.3425, L3400.8000, L7000.0750, L3200.1100, L3200.0500, L5500.0550 #### [facility] [address] [place], [address] MCH (RBC) [Entitic mass] 27.3 pg Normal 27.0-32.0 [facility] Comment on above: Performed By: #### L 3100.3425, L3400.8000, L7000.0750, L3200.1100, L3200.0500, L5500.0550 #### [facility] [address] [facility] [place], [address] MCHC (RBC) [Mass/Vol] 30.7 g/dL Low 32-36 [facility] Comment on above: Performed By: #### L 3100.3425, L3400.8000, L7000.0750, L3200.1100, L3200.0500, L5500.0550 #### [facility] [address] [place], [address] MCV (RBC) [Entitic vol] 88.9 fL Normal 81-99 [facility] Comment on above: Performed By: #### L 3100.3425, L3400.8000, L7000.0750, L3200.1100, L3200.0500, L5500.0550 #### [facility] [address] [place], [address] Monocytes/100 WBC (Bld) 5.5 % Normal 0-10 [facility] Comment on above: Performed By: #### L 3100.3425, L3400.8000, L7000.0750, L3200.1100, L3200.0500, L5500.0550 #### [facility] [address] [place], [address] Neutrophils/100 WBC (Bld) 53.4 % Normal 47-70 [facility] Comment on above: Performed By: #### L 3100.3425, L3400.8000, L7000.0750, L3200.1100, L3200.0500, L5500.0550 #### [facility] [address] [place], [address] Nucleated RBC (Bld) [#/Vol] 0 10*3/uL Normal 0-5 [facility] Comment on above: Performed By: #### L 3100.3425, L3400.8000, L7000.0750, L3200.1100, L3200.0500, L5500.0550 #### [facility] [address] [place], [address] Platelet mean volume (Bld) [Entitic vol] 7.8 fL Normal 6.2-12.0 [facility] Comment on above: Performed By: #### L 3100.3425, L3400.8000, L7000.0750, L3200.1100, L3200.0500, L5500.0550 #### [facility] [address] [place], [address] Platelets (Bld) [#/Vol] 483 10*3/uL High 150-450 [facility] Comment on above: Performed By: #### L 3100.3425, L3400.8000, L7000.0750, L3200.1100, L3200.0500, L5500.0550 #### [facility] [address] [place], [address] RBC (Bld) [#/Vol] 3.15 10*6/uL Low 4.2-5.4 [facility] Comment on above: Performed By: #### L 3100.3425, L3400.8000, L7000.0750, L3200.1100, L3200.0500, L5500.0550 #### [facility] [address] [place], [address] RDW SD 48.1 fl High 35.1-43.9 [facility] Comment on above: Performed By: #### L 3100.3425, L3400.8000, L7000.0750, L3200.1100, L3200.0500, L5500.0550 #### [facility] [address] [place], [address] WBC (Bld) [#/Vol] 8.8 10*3/uL Normal 4.4-11.0 [facility] Comment on above: Performed By: #### L 3100.3425, L3400.8000, L7000.0750, L3200.1100, L3200.0500, L5500.0550 #### [facility] [address] [place], [address] CRPon 01-11-2025 C-REACTIVE PROT 103.00 mg/L High 0.0-3.0 [facility] Comment on above: Performed By: #### L 3100.3425, L3400.8000, L7000.0750, L3200.1100, L3200.0500, L5500.0550 #### [facility] [address] [place], [place], [id number] CRP [Mass/Vol]Ordered By: Cyrus Tejeda on 01-11-2025 C-Reactive Protein Extended Range 103.00 mg/L High 0.0-3.0 [facility] Calculated total iron bindin g capacityOrdered By: Yoanna Tejeda on 01-11-2025 Total Iron Binding Capacity 334 ug/dL 250-450 [facility] Carbon dioxide, total [Moles /volume] in Central venous bloodOrdered By: Tony Mendoza on 01-11-2025 CO2 [Moles/Vol] 22.9 mmol/L 21.0-32.0 [facility] Carbon dioxide, total [Moles /volume] in Central venous bloodOrdered By: Yoanna Tejeda on 01-11-2025 CO2 [Moles/Vol] 23.7 mmol/L 21.0-32.0 [facility] Chloride assayOrdered By: Fadi Mendoza on 01-11-2025 Chloride [Moles/Vol] 100 mmol/L 98-108 [facility] Chloride assayOrdered By: Cyrus Tejeda on 01-11-2025 Chloride [Moles/Vol] 98 mmol/L 98-108 [facility] Comprehensive Metabolic Prof ilon 01-11-2025 Albumin [Mass/Vol] 2.7 g/dL Low 3.5-5.0 [facility] Comment on above: Performed By: #### L 3100.3425, L3400.8000, L7000.0750, L3200.1100, L3200.0500, L5500.0550 #### [facility] [address] [place], [place], [id number] Albumin/Globulin [Mass ratio] 0.5 {ratio} Low 0.9-2.4 [facility] Comment on above: Performed By: #### L 3100.3425, L3400.8000, L7000.0750, L3200.1100, L3200.0500, L5500.0550 #### [facility] [address] [place], [address] ALK PHOS 271 U/L High 35-104 [facility] Comment on above: Performed By: #### L 3100.3425, L3400.8000, L7000.0750, L3200.1100, L3200.0500, L5500.0550 #### [facility] [address] [place], [address] ALT [Catalytic activity/Vol] 22 U/L Normal <=34 [facility] Comment on above: Performed By: #### L 3100.3425, L3400.8000, L7000.0750, L3200.1100, L3200.0500, L5500.0550 #### [facility] [address] [place], [address] AST [Catalytic activity/Vol] 29 U/L Normal <=31 [facility] Comment on above: Performed By: #### L 3100.3425, L3400.8000, L7000.0750, L3200.1100, L3200.0500, L5500.0550 #### [facility] [address] [place], [address] Bilirubin [Mass/Vol] 0.44 mg/dL Normal 0.00-1.30 [facility] Comment on above: Performed By: #### L 3100.3425, L3400.8000, L7000.0750, L3200.1100, L3200.0500, L5500.0550 #### [facility] [address] [place], [address] BUN/CRE 12.2 RATIO Normal 10-20 [facility] Comment on above: Performed By: #### L 3100.3425, L3400.8000, L7000.0750, L3200.1100, L3200.0500, L5500.0550 #### [facility] [address] [place], [address] Calcium [Mass/Vol] 8.9 mg/dL Normal 7.6-11.0 [facility] Comment on above: Performed By: #### L 3100.3425, L3400.8000, L7000.0750, L3200.1100, L3200.0500, L5500.0550 #### [facility] [address] [place], [address] Chloride [Moles/Vol] 100 mmol/L Normal 98-108 [facility] Comment on above: Performed By: #### L 3100.3425, L3400.8000, L7000.0750, L3200.1100, L3200.0500, L5500.0550 #### [facility] [address] [place], [address] CO2 [Moles/Vol] 22.9 mmol/L Normal 21.0-32.0 [facility] Comment on above: Performed By: #### L 3100.3425, L3400.8000, L7000.0750, L3200.1100, L3200.0500, L5500.0550 #### [facility] [address] [place], [address] Creatinine [Mass/Vol] 0.49 mg/dL Low 0.70-1.20 [facility] Comment on above: Performed By: #### L 3100.3425, L3400.8000, L7000.0750, L3200.1100, L3200.0500, L5500.0550 #### [facility] [address] [place], [address] GAP 13 Normal 5-15 [facility] Comment on above: Performed By: #### L 3100.3425, L3400.8000, L7000.0750, L3200.1100, L3200.0500, L5500.0550 #### [facility] [address] [place], [address] GFR/1.73 sq M.predicted among non-blacks MDRD (S/P/Bld) [Vol rate/Area] 127 mL/min/{1.73_m2} Normal >60 [facility] Comment on above: Result Comment: mL/m in/1.73m2 CKD-EPI Creatinine Equation (2020) Performed By: #### L 3100.3425, L3400.8000, L7000.0750, L3200.1100, L3200.0500, L5500.0550 #### [facility] [address] [place], [address] Globulin (S) [Mass/Vol] 5.5 g/dL High 2.2-4.2 [facility] Comment on above: Performed By: #### L 3100.3425, L3400.8000, L7000.0750, L3200.1100, L3200.0500, L5500.0550 #### [facility] [address] [place], [address] Glucose [Mass/Vol] 119 mg/dL High 70-99 [facility] Comment on above: Performed By: #### L 3100.3425, L3400.8000, L7000.0750, L3200.1100, L3200.0500, L5500.0550 #### [facility] [address] [place], [address] Potassium [Moles/Vol] 3.7 mmol/L Normal 3.3-5.1 [facility] Comment on above: Performed By: #### L 3100.3425, L3400.8000, L7000.0750, L3200.1100, L3200.0500, L5500.0550 #### [facility] [address] [place], [address] Sodium [Moles/Vol] 136 mmol/L Normal 133-145 [facility] Comment on above: Performed By: #### L 3100.3425, L3400.8000, L7000.0750, L3200.1100, L3200.0500, L5500.0550 #### [facility] [address] [place], [address] T PROT 8.2 g/dL Normal 5.9-8.4 [facility] Comment on above: Performed By: #### L 3100.3425, L3400.8000, L7000.0750, L3200.1100, L3200.0500, L5500.0550 #### [facility] [address] [place], [address] Urea nitrogen [Mass/Vol] 6 mg/dL Normal 4-19 [facility] Comment on above: Performed By: #### L 3100.3425, L3400.8000, L7000.0750, L3200.1100, L3200.0500, L5500.0550 #### [facility] [address] [place], [address] Albumin [Mass/Vol] 2.7 g/dL Low 3.5-5.0 [facility] Comment on above: Performed By: #### L 3100.3425, L3400.8000, L7000.0750, L3200.1100, L3200.0500, L5500.0550 #### [facility] [address] [place], [address] Albumin/Globulin [Mass ratio] 0.5 {ratio} Low 0.9-2.4 [facility] Comment on above: Performed By: #### L 3100.3425, L3400.8000, L7000.0750, L3200.1100, L3200.0500, L5500.0550 #### [facility] [address] [place], [address] ALK PHOS 284 U/L High 35-104 [facility] Comment on above: Performed By: #### L 3100.3425, L3400.8000, L7000.0750, L3200.1100, L3200.0500, L5500.0550 #### [facility] [address] [place], [address] ALT [Catalytic activity/Vol] 21 U/L Normal <=34 [facility] Comment on above: Performed By: #### L 3100.3425, L3400.8000, L7000.0750, L3200.1100, L3200.0500, L5500.0550 #### [facility] [address] [place], [address] AST [Catalytic activity/Vol] 28 U/L Normal <=31 [facility] Comment on above: Performed By: #### L 3100.3425, L3400.8000, L7000.0750, L3200.1100, L3200.0500, L5500.0550 #### [facility] [address] [place], [address] Bilirubin [Mass/Vol] 0.42 mg/dL Normal 0.00-1.30 [facility] Comment on above: Performed By: #### L 3100.3425, L3400.8000, L7000.0750, L3200.1100, L3200.0500, L5500.0550 #### [facility] [address] [place], [address] BUN/CRE 11.0 RATIO Normal 10-20 [facility] Comment on above: Performed By: #### L 3100.3425, L3400.8000, L7000.0750, L3200.1100, L3200.0500, L5500.0550 #### [facility] [address] [place], [address] Calcium [Mass/Vol] 8.8 mg/dL Normal 7.6-11.0 [facility] Comment on above: Performed By: #### L 3100.3425, L3400.8000, L7000.0750, L3200.1100, L3200.0500, L5500.0550 #### [facility] [address] [place], [address] Chloride [Moles/Vol] 98 mmol/L Normal 98-108 [facility] Comment on above: Performed By: #### L 3100.3425, L3400.8000, L7000.0750, L3200.1100, L3200.0500, L5500.0550 #### [facility] [address] [place], [address] CO2 [Moles/Vol] 23.7 mmol/L Normal 21.0-32.0 [facility] Comment on above: Performed By: #### L 3100.3425, L3400.8000, L7000.0750, L3200.1100, L3200.0500, L5500.0550 #### [facility] [address] [place], [address] Creatinine [Mass/Vol] 0.60 mg/dL Low 0.70-1.20 [facility] Comment on above: Performed By: #### L 3100.3425, L3400.8000, L7000.0750, L3200.1100, L3200.0500, L5500.0550 #### [facility] [address] [place], [address] GAP 11 Normal 5-15 [facility] Comment on above: Performed By: #### L 3100.3425, L3400.8000, L7000.0750, L3200.1100, L3200.0500, L5500.0550 #### [facility] [address] [place], [address] GFR/1.73 sq M.predicted among non-blacks MDRD (S/P/Bld) [Vol rate/Area] 121 mL/min/{1.73_m2} Normal >60 [facility] Comment on above: Result Comment: mL/m in/1.73m2 CKD-EPI Creatinine Equation (2020) Performed By: #### L 3100.3425, L3400.8000, L7000.0750, L3200.1100, L3200.0500, L5500.0550 #### [facility] [address] [place], [address] Globulin (S) [Mass/Vol] 5.9 g/dL High 2.2-4.2 [facility] Comment on above: Performed By: #### L 3100.3425, L3400.8000, L7000.0750, L3200.1100, L3200.0500, L5500.0550 #### [facility] [address] [place], [address] Glucose [Mass/Vol] 82 mg/dL Normal 70-99 [facility] Comment on above: Performed By: #### L 3100.3425, L3400.8000, L7000.0750, L3200.1100, L3200.0500, L5500.0550 #### [facility] [address] [place], [address] Potassium [Moles/Vol] 3.8 mmol/L Normal 3.3-5.1 [facility] Comment on above: Performed By: #### L 3100.3425, L3400.8000, L7000.0750, L3200.1100, L3200.0500, L5500.0550 #### [facility] [address] [place], [address] Sodium [Moles/Vol] 132 mmol/L Low 133-145 [facility] Comment on above: Performed By: #### L 3100.3425, L3400.8000, L7000.0750, L3200.1100, L3200.0500, L5500.0550 #### [facility] [address] [place], [address] T PROT 8.5 g/dL High 5.9-8.4 [facility] Comment on above: Performed By: #### L 3100.3425, L3400.8000, L7000.0750, L3200.1100, L3200.0500, L5500.0550 #### [facility] [address] [place], [address] Urea nitrogen [Mass/Vol] 7 mg/dL Normal 4-19 [facility] Comment on above: Performed By: #### L 3100.3425, L3400.8000, L7000.0750, L3200.1100, L3200.0500, L5500.0550 #### [facility] [address] [facility] [place], [address] Emergency Department Summary on 01-11-2025 Emergency Department Summary [facility] Medical Records Department [address] [facility] [place] [address] Emergency Department Summary 01/11/25 MR#: [id number] Acct: [id number] Name: SHERI SOUTH Rep #: [id number] : 1990 34 From: Tony Mendoza MD PCP: Dr. Lan Simmons MD Status:REG ER Location: ED HPI History of Present Illness Chief Complaint: Abn Labs Narrative Narrative: 34-year-old female, G4, P2 at approximately 29 weeks gestation presents with abnormal labs. She has history of Crohn disease and takes Humira. She has an [employer] ADMINISTRATOR in [place] and plans on delivering at [facility]. She presents the direction of the gastroenterology CHARLIE who evaluated her today. Patient's states that with her Crohn disease, the SIEBEL ADMINISTRATOR recommended a electrical and instrumentation mechanic closer than the one they usually see at [facility]. Patient relates history that she has had bloody stool and cramping with bowel movements for the last few weeks. She was seen by gastroenterology today and was noted to have a hemoglobin of 8.6 with CRP of 103. Alk phos is elevated to 84 and it was recommended that she be admitted to the hospital for Solu-Medrol 125 mg every 8 hours. Patient denies any vaginal bleeding or cramping. She and her also relate history that it was suggested that with her Crohn disease and that she is on Humira that she be evaluated by highway commissioner. They had an appointment with someone at [facility] who advised them that there is no need for her to deliver at [place] and that she has not high risk and that she could deliver in [place]. She presents today for admission for IV steroids and control of her Crohn's flare. [facility] Medical History delivery delivered Abscess Blood transfusion, without reported diagnosis Home Medications ???Medication ???Instructions ???Recorded ???Last Taken ???Type adalimumab 40 mg/0.4 mL 40 mg subcut Q2W 01/11/25 Unknown History subcutaneous syringe kit (Humira(CF)) txciyvbjhtem-[id number] 18 mg-folic tab PO 01/11/25 Unknown History 400 mcg-vit K1 120 mcg-herbal tablet Allergy/AdvReac Type Severity Reaction Status Date / Time mesalamine AdvReac Intermediate Diarrhea Verified 01/11/25 14:15 Family History no significant family his Social History household members: spouse and children Smoking Status: Never smoker alcohol intake: never substance use type: does not use hubert/lutheran: Mennonite ROS ROS ED ROS Narrative Review of systems positive for blood in stool for a few weeks. Abdominal cramping only when having a bowel movement. No vaginal bleeding, no pelvic pain or vaginal cramping. No fevers or chills, no nausea or vomiting. EXAM Physical Exam Narrative Exam Narrative: Afebrile. Vital signs noted. Nontoxic-appearing. Mild tachycardia 102 bpm. Lungs clear to auscultation bilaterally. Abdomen is soft and nontender with gravid uterus. No pedal edema. Neurological examination nonfocal and normal lysing. Const Vital Signs: 01/11/25 19:33 01/11/25 20:18 01/11/25 21:32 Temperature 97.2 F L Temperature Source Temporal Pulse Rate 102 H Respiratory Rate 15 Respiratory Effort Normal Non-Labored Respiratory Pattern Normal Blood Pressure 118/74 113/77 Blood Pressure Mean 88 89 Pulse Ox 98 Oxygen Delivery Method Room Air MDM MDM MDM Narrative Medical decision making narrative: Differential diagnosis includes but not limited to Crohn's flare versus GI bleeding from AV malformation. I have low suspicion for diverticulitis based on her history and physical. I reviewed the gastroenterology note from today. I also reviewed the laboratory work from today as well. Today in review of her laboratory work she has a white count of 9.1, hemoglobin 8.5 down slightly from 8.6 this afternoon, platelet count elevated at 475. Electrolyte panel is significant for glucose of 119 with alk phos elevated at 271, lipase normal at 20. I reviewed her CRP and it is elevated at 203. She was administered Solu-Medrol 125 mg intravenously. heart rate 140 and obtained by RN. I discussed patient with Dr. Wheeler with [employer]. She will admit the patient as long as there is GI able to follow this weekend. As the patient is established with gastroenterology here as she was seen today and sent in by the nurse practitioner, I discussed patient with Dr. Galdamez who states that he will be able to see the patient tomorrow for consultation. He did not want any other medications added to treat her Crohn disease versus ulcerative colitis. I rediscussed the patient with Dr. Wheeler for admission to labor and delivery for monitoring. Disposition is admit in stable condi (more content not included)... Normal [facility] Eosinophil percentageOrdered By: ED PROVIDER on 01-11-2025 Eosinophils/100 WBC (Bld) 4.8 % 0-5 [facility] Eosinophil percentageOrdered By: Yoanna Tejeda on 01-11-2025 Eosinophils/100 WBC (Bld) 4.7 % 0-5 [facility] Erythrocyte distribution wid th (RBC) [Ratio]Ordered By: ED PROVIDER on 01-11-2025 Erythrocyte distribution width (RBC) [Entitic vol] 48.0 fL High 35.1-43.9 [facility] Erythrocyte distribution wid th (RBC) [Ratio]Ordered By: Yoanna Tejeda on 01-11-2025 Erythrocyte distribution width (RBC) [Entitic vol] 48.1 fL High 35.1-43.9 [facility] Erythrocyte distribution wid th ratioOrdered By: ED PROVIDER on 01-11-2025 Erythrocyte distribution width (RBC) [Ratio] 15.0 % High 11.6-14.6 [facility] Erythrocyte distribution wid th ratioOrdered By: Yoanna Tejeda on 01-11-2025 Erythrocyte distribution width (RBC) [Ratio] 15.0 % High 11.6-14.6 [facility] Erythrocyte distribution wid th standard deviationOrdered By: Yoanna Tejeda on 01-11-2025 Erythrocyte distribution width (RBC) [Ratio] 48.1 fl High 35.1-43.9 [facility] Ferritinon 01-11-2025 Ferritin [Mass/Vol] 195 ng/mL Normal 22-378 [facility] Comment on above: Performed By: #### L 3100.3425, L3400.8000, L7000.0750, L3200.1100, L3200.0500, L5500.0550 #### [facility] [facility] [address] [place], [place], [address] GFR/1.73 sq M.predicted juan g non-blacks MDRD (S/P/Bld) [Vol rate/Area]Ordered By: Tony Mendoza on 01-11-2025 Estimated GFR (MDRD) Non-Af Amer 127 >60 [facility] Comment on above: mL/min/1.73m2 CKD-EP I Creatinine Equation (2020) GFR/1.73 sq M.predicted juan g non-blacks MDRD (S/P/Bld) [Vol rate/Area]Ordered By: Yoanna Tejeda on 01-11-2025 Estimated GFR (MDRD) Non-Af Amer 121 >60 [facility] Comment on above: mL/min/1.73m2 CKD-EP I Creatinine Equation (2020) Gastroenterology Visit Repor ton 01-11-2025 Gastroenterology Visit Report [facility] [address] [place] [address] OFFICE VISIT Date of Service: 01/11/25 MR#: [id number] Acct: [id number] Name: SHERI SOUTH Rep #: [id number] : 1990 Provider: PHIL alberto Age/Sex: 34/F Location: [facility] Status: Signed Intake Vital Signs 01/11/25 14:31 Height 5 ft 3 in Weight: 190 lb 6 oz BMI 33.7 BP 101/68 Respiration 16 Pulse 100 Pulse Oximetry (%) 98 Oxygen Delivery Method room air Intake Visit Reasons: CROHNS Chief Complaint: crohn's flare J2Ee Architect Required: No Accompanied by: Is patient in pain?: No Allergies mesalamine Adverse Reaction (Intermediate, Verified 01/11/25 14:15) Diarrhea Medications ???Medication ???Instructions ???Recorded ???Confirmed ???Type adalimumab 40 mg/0.4 mL 40 mg subcut Q2W 01/11/25 01/11/25 History subcutaneous syringe kit (Humira(CF)) [id number] 18 mg-folic tab PO 01/11/25 01/11/25 History 400 mcg-vit K1 120 mcg-herbal tablet Patient : Yes PFSH Medical History (Updated 01/11/25 @ 15:28 by Yoanna Tejeda NP-C) delivery delivered Abscess Blood transfusion, without reported diagnosis Social History household members: spouse and children Smoking Status: Never smoker alcohol intake: never substance use type: does not use hubert/lutheran: Mennonite HPI HPI Chief Complaint: crohn's flare Details: SHERI SOUTH, is a 34 F who presents to the office today for CT abdomen and pelvis 08/23/2023 Focal fatty infiltration of the liver Calcified stone within the gallbladder Diffuse nonspecific colitis, the differential includes infectious versus inflammatory CT abdomen and pelvis 11/07/2023 Fatty infiltration of the liver Calcified stone in the gallbladder There is diffuse thickening and pericolonic increased vascularity throughout the colon from the cecum to the rectum in a patient with a history of ulcerative colitis, this is consistent with inflammatory bowel disease Fat-containing umbilical hernia Diffuse colitis, this may be infectious or inflammatory colitis, however in a patient with a history of UC most likely represents IBD Low attenuating lesion in the left lobe of the liver Possibly representing focal fatty infiltration consider MRI Gallstones CT abdomen and pelvis 02/21/2024 Focal fatty infiltration of the liver Calcified stone in the gallbladder There is diffuse mild thickening of the colonic wall with mild pericolonic increased vascularity Fat-containing umbilical hernia Air in stranding in the left perianal soft tissues highly suspicious for necrotizing fasciitis - 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 Prior to presenting she had been treated for cellulitis of BLE. On admission she was found to be anemic with a hemoglobin of 6.1 and leukocytosis with a WBC of 22.2. CTE 06/13/2024 Unremarkable small bowel including terminal ileum with intraluminal fecal material noted in the ascending colon. Bowel wall thickening, mucosal enhancement and hyperemia seen extending from proximal transverse colon all the way up to the distal rectum, likely representing ulcerative colitis. Tissue diagnosis recommended. No evidence of bowel obstruction or stricture identified on current juncture. Focal area of wall thickening of the anterior bladder wall with associated perivascular fat stranding. Given the pancolitis described in previous colonoscopy reports, unable to completely exclude prior fistulization of the sigmoid colon with the bladder in this area. Can Whipple with outside imaging is strongly recommended. 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 However further evaluation with serum I IgG4 level is recommended Findings favored to represent postsurgical changes related to I D of the perianal region/left perineum. No localized fluid collection Colonoscopy 04/26/2024 Moderate erythematous, granular mucosa with loss of vascular pattern in the terminal ileum; performed biopsies to rule out IBD Erythematous, granular mucosa with loss of vascular pattern Severe granular mucosa with loss of vascular pattern in the descending colon; biopsies performed Severe erythematous granular ulcerated mucosa with loss of vascular pattern in the rectosigmoid colon Terminal ileum biopsies revealed chronic active enteritis, granuloma or pyloric gland metaplasia are not identified Ascending colonic biopsy revealed chronic active colitis, granuloma or dysplasia not identified Transverse colon chronic active colitis with cryptitis and crypt abscesses, granulomas or dyspla (more content not included)... Normal [facility] Glomerular filtration rate ( GFR) estimation/1.73 sq m using serum, plasma, or whole bOrdered By: Yoanna Tejeda on 01-11-2025 GFR/1.73 sq M.predicted among non-blacks MDRD (S/P/Bld) [Vol rate/Area] 121 mL/min/{1.73_m2} >60 [facility] Comment on above: mL/min/1.73m2 CKD-EP I Creatinine Equation (2020) Hematocrit Auto (Bld) [Volum e fraction]Ordered By: ED PROVIDER on 01-11-2025 Hematocrit (Bld) [Volume fraction] 27.1 % Low 37-47 [facility] Hematocrit Auto (Bld) [Volum e fraction]Ordered By: Yoanna Tejeda on 01-11-2025 Hematocrit (Bld) [Volume fraction] 28.0 % Low 37-47 [facility] Hemoglobin measurementOrdere d By: ED PROVIDER on 01-11-2025 Hemoglobin (Bld) [Mass/Vol] 8.5 g/dL Low 12.0-15.0 [facility] Hemoglobin measurementOrdere d By: Yoanna Tejeda on 01-11-2025 Hemoglobin (Bld) [Mass/Vol] 8.6 g/dL Low 12.0-15.0 [facility] Immature granulocytes/100 WB C Auto (Bld)Ordered By: ED PROVIDER on 01-11-2025 Immature granulocytes/100 WBC (Bld) 1.100 % High 0.0-0.9 [facility] Comment on above: IG% - Immature Granu locytes (promyelocytes, myelocytes and metamyelocytes) > 1% indicates that a LEFT SHIFT is Present. Immature granulocytes/100 WB C Auto (Bld)Ordered By: Yoanna Tejeda on 01-11-2025 Immature granulocytes/100 WBC (Bld) 0.800 % 0.0-0.9 [facility] Comment on above: IG% - Immature Granu locytes (promyelocytes, myelocytes and metamyelocytes) > 1% indicates that a LEFT SHIFT is Present. Iron (Unsp spec) [Mass/Mass] Ordered By: Yoanna Tejeda on 01-11-2025 Iron [Mass/Vol] 41 ug/dL Low 50-170 [facility] Iron measurement (mass/mass) Ordered By: Yoanna Tejeda on 01-11-2025 Iron (Unsp spec) [Mass/Mass] 41 ug/dL Low 50-170 [facility] Iron saturation [Mass fracti on]Ordered By: Yoanna Tejeda on 01-11-2025 Iron Saturation 12.0 % Low 13-59 [facility] Iron+Iron Binding Capacityon 01-11-2025 Iron [Mass/Vol] 41 ug/dL Low 50-170 [facility] Comment on above: Performed By: #### L 3100.3425, L3400.8000, L7000.0750, L3200.1100, L3200.0500, L5500.0550 #### [facility] [place], [address] IRON SATURATION 12.0 Low 13-59 [facility] Comment on above: Performed By: #### L 3100.3425, L3400.8000, L7000.0750, L3200.1100, L3200.0500, L5500.0550 #### [facility] [address] [place], [address] TIBC 334 ug/dL Normal 250-450 [facility] Comment on above: Performed By: #### L 3100.3425, L3400.8000, L7000.0750, L3200.1100, L3200.0500, L5500.0550 #### [facility] [address] [place], [address] UIBC 293 ug/dL Normal 228-428 [facility] Comment on above: Performed By: #### L 3100.3425, L3400.8000, L7000.0750, L3200.1100, L3200.0500, L5500.0550 #### [facility] [address] [place], [address] Laboratory - Chemistry and C hemistry - challengeOrdered By: Tony Mendoza on 01-11-2025 AST [Catalytic activity/Vol] 29 U/L <32 [facility] Laboratory - Chemistry and C hemistry - challengeOrdered By: Yoanna Tejeda on 01-11-2025 AST [Catalytic activity/Vol] 28 U/L <32 [facility] Lipaseon 01-11-2025 Lipase [Catalytic activity/Vol] 20 U/L Normal 13-75 [facility] Comment on above: Result Comment: Connie castillo note: LIPASE revised reference range effective 22. New Lipase methodology. Expected to produce lower values than the previous assay method. NEW Reference Range: 13 - 75 U/L Performed By: #### L 101.9900, L501.6710, L500.4050 #### [facility] [address] [place], [address] Lipase measurementOrdered By : Tony Mendoza on 01-11-2025 Lipase [Catalytic activity/Vol] 20 U/L 13-75 [facility] Comment on above: Please note:LIPASE r evised reference range effective 22. New Lipase methodology. Expected to produce lower values than the previous assay method. NEW Reference Range: 13 - 75 U/L Lymphocytes Auto (Unsp spec) [#/Vol]Ordered By: ED PROVIDER on 01-11-2025 Lymphocytes (Bld) [#/Vol] 2.97 10*3/uL 0.83-4.51 [facility] Lymphocytes Auto (Unsp spec) [#/Vol]Ordered By: Yoanna Tejeda on 01-11-2025 Lymphocytes (Bld) [#/Vol] 3.11 10*3/uL 0.83-4.51 [facility] Lymphocytes/100 WBC Auto (Un sp spec)Ordered By: ED PROVIDER on 01-11-2025 Lymphocytes/100 WBC (Bld) 32.6 % 19-41 [facility] Lymphocytes/100 WBC Auto (Un sp spec)Ordered By: Yoanna Tejeda on 01-11-2025 Lymphocytes/100 WBC (Bld) 35.4 % 19-41 [facility] MCV (mean corpuscular volume ) determinationOrdered By: ED PROVIDER on 01-11-2025 MCV (RBC) [Entitic vol] 88.9 fL 81-99 [facility] MCV (mean corpuscular volume ) determinationOrdered By: Yoanna Tejeda on 01-11-2025 MCV (RBC) [Entitic vol] 88.9 fL 81-99 [facility] Mean corpuscular hemoglobin (MCH) determinationOrdered By: ED PROVIDER on 01-11-2025 MCH (RBC) [Entitic mass] 27.9 pg 27.0-32.0 [facility] Mean corpuscular hemoglobin (MCH) determinationOrdered By: Yoanna Tejeda on 01-11-2025 MCH (RBC) [Entitic mass] 27.3 pg 27.0-32.0 [facility] Mean corpuscular hemoglobin concentration (MCHC) determinationOrdered By: ED PROVIDER on 01-11-2025 MCHC (RBC) [Mass/Vol] 31.4 g/dL Low 32-36 [facility] Mean corpuscular hemoglobin concentration (MCHC) determinationOrdered By: Yoanna Tejeda on 01-11-2025 MCHC (RBC) [Mass/Vol] 30.7 g/dL Low 32-36 [facility] Mean platelet volume determi nationOrdered By: ED PROVIDER on 01-11-2025 Platelet mean volume (Bld) [Entitic vol] 7.7 fL 6.2-12.0 [facility] Mean platelet volume determi nationOrdered By: Yoanna Tejeda on 01-11-2025 Platelet mean volume (Bld) [Entitic vol] 7.8 fL 6.2-12.0 [facility] Monocyte percentageOrdered B y: ED PROVIDER on 01-11-2025 Monocytes/100 WBC (Bld) 5.0 % 0-10 [facility] Monocyte percentageOrdered B y: Yoanna Tejeda on 01-11-2025 Monocytes/100 WBC (Bld) 5.5 % 0-10 [facility] Neutrophil percentageOrdered By: ED PROVIDER on 01-11-2025 Neutrophils/100 WBC (Bld) 56.2 % 47-70 [facility] Neutrophil percentageOrdered By: Yoanna Tejeda on 01-11-2025 Neutrophils/100 WBC (Bld) 53.4 % -70 [facility] No Panel InformationOrdered By: Yoanna Tejeda on 01-11-2025 Unsaturated Iron Binding Capacity 293 ug/dL 228-428 [facility] Nucleated red blood cell per centageOrdered By: ED PROVIDER on 01-11-2025 Nucleated RBC/100 WBC (Bld) [Ratio] 0 % 0-5 [facility] Nucleated red blood cell per centageOrdered By: Yoanna Tejeda on 01-11-2025 Nucleated RBC/100 WBC (Bld) [Ratio] 0 % 0-5 [facility] Platelet countOrdered By: ED PROVIDER on 01-11-2025 Platelets (Bld) [#/Vol] 475 10*3/uL High 150-450 [facility] Platelet countOrdered By: Cyrus Tejeda on 01-11-2025 Platelets (Bld) [#/Vol] 483 10*3/uL High 150-450 [facility] Potassium (Unsp spec) [Mass/ Vol]Ordered By: Tony Mendoza on 01-11-2025 Potassium [Moles/Vol] 3.7 mmol/L 3.3-5.1 [facility] Potassium (Unsp spec) [Mass/ Vol]Ordered By: Yoanna Tejeda on 01-11-2025 Potassium [Moles/Vol] 3.8 mmol/L 3.3-5.1 [facility] Potassium measurement (mass/ volume)Ordered By: Yoanna Tejeda on 01-11-2025 Potassium (Unsp spec) [Mass/Vol] 3.8 mmol/L 3.3-5.1 [facility] RBC Auto (Bld) [#/Vol]Ordere d By: ED PROVIDER on 01-11-2025 RBC (Bld) [#/Vol] 3.05 10*6/uL Low 4.2-5.4 [facility] RBC Auto (Bld) [#/Vol]Ordere d By: Yoanna Tejeda on 01-11-2025 RBC (Bld) [#/Vol] 3.15 10*6/uL Low 4.2-5.4 [facility] Serum creatinine measurement (mass/volume)Ordered By: Tony Mendoza on 01-11-2025 Creatinine [Mass/Vol] 0.49 mg/dL Low 0.70-1.20 [facility] Serum creatinine measurement (mass/volume)Ordered By: Yoanna Tejeda on 01-11-2025 Creatinine [Mass/Vol] 0.60 mg/dL Low 0.70-1.20 [facility] Serum globulin measurementOr dered By: Tony Mendoza on 01-11-2025 Globulin (S) [Mass/Vol] 5.5 g/dL High 2.2-4.2 [facility] Serum globulin measurementOr dered By: Yoanna Tejeda on 01-11-2025 Globulin (S) [Mass/Vol] 5.9 g/dL High 2.2-4.2 [facility] Serum glucose measurement (m ass/volume)Ordered By: Tony Mendoza on 01-11-2025 Glucose [Mass/Vol] 119 mg/dL High 70-99 [facility] Serum glucose measurement (m ass/volume)Ordered By: Yoanna Tejeda on 01-11-2025 Glucose [Mass/Vol] 82 mg/dL 70-99 [facility] Serum or plasma C reactive p rotein measurement (mass/volume)Ordered By: Yoanna Tejeda on 01-11-2025 CRP [Mass/Vol] 103.00 mg/L High 0.0-3.0 [facility] Serum or plasma alanine woodruff otransferase (ALT) measurementOrdered By: Tony Mendoza on 01-11-2025 ALT [Catalytic activity/Vol] 22 U/L <35 [facility] Serum or plasma alanine woodruff otransferase (ALT) measurementOrdered By: Yoanna Tejeda on 01-11-2025 ALT [Catalytic activity/Vol] 21 U/L <35 [facility] Serum or plasma albumin vish urement (mass/volume)Ordered By: Tony Mendoza on 01-11-2025 Albumin [Mass/Vol] 2.7 g/dL Low 3.5-5.0 [facility] Serum or plasma albumin vish urement (mass/volume)Ordered By: Yoanna Tejeda on 01-11-2025 Albumin [Mass/Vol] 2.7 g/dL Low 3.5-5.0 [facility] Serum or plasma albumin/glob ulin mass ratioOrdered By: Tony Mendoza on 01-11-2025 Albumin/Globulin [Mass ratio] 0.5 {ratio} Low 0.9-2.4 [facility] Serum or plasma albumin/glob ulin mass ratioOrdered By: Yoanna Tejeda on 01-11-2025 Albumin/Globulin [Mass ratio] 0.5 {ratio} Low 0.9-2.4 [facility] Serum or plasma alkaline kuldip sphatase measurementOrdered By: Tony Mendoza on 01-11-2025 ALP [Catalytic activity/Vol] 271 U/L High 35-104 [facility] Serum or plasma alkaline kuldip sphatase measurementOrdered By: Yoanna Tejeda on 01-11-2025 ALP [Catalytic activity/Vol] 284 U/L High 35-104 [facility] Serum or plasma calcium vish urement (mass/volume)Ordered By: Tony Mendoza on 01-11-2025 Calcium [Mass/Vol] 8.9 mg/dL 7.6-11.0 [facility] Serum or plasma calcium vish urement (mass/volume)Ordered By: Yoanna Tejeda on 01-11-2025 Calcium [Mass/Vol] 8.8 mg/dL 7.6-11.0 [facility] Serum or plasma ferritin jg surement (mass/volume)Ordered By: Yoanna Tejeda on 01-11-2025 Ferritin [Mass/Vol] 195 ng/mL 22-378 [facility] Serum or plasma iron saturat ion measurement (mass fraction)Ordered By: Yoanna Tejeda on 01-11-2025 Iron saturation [Mass fraction] 12.0 % Low 13-59 [facility] Serum or plasma urea nitroge n measurement (mass/volume)Ordered By: Tony Mendoza on 01-11-2025 Urea nitrogen [Mass/Vol] 6 mg/dL - [facility] Serum or plasma urea nitroge n measurement (mass/volume)Ordered By: Yoanna Tejeda on 01-11-2025 Urea nitrogen [Mass/Vol] 7 mg/dL - [facility] Sodium levelOrdered By: Tony Mendoza on 01-11-2025 Sodium [Moles/Vol] 136 mmol/L 133-145 [facility] Sodium levelOrdered By: Petrona Tejeda on 01-11-2025 Sodium [Moles/Vol] 132 mmol/L Low 133-145 [facility] Total proteinOrdered By: Erendira Mendoza on 01-11-2025 Protein [Mass/Vol] 8.2 g/dL 5.9-8.4 [facility] Total proteinOrdered By: Lorraine Tejeda on 01-11-2025 Protein [Mass/Vol] 8.5 g/dL High 5.9-8.4 [facility] Vitamin B12on 01-11-2025 Cobalamin (Vitamin B12) [Mass/Vol] 1000 pg/mL High 180-914 [facility] Comment on above: Performed By: #### L 3100.3425, L3400.8000, L7000.0750, L3200.1100, L3200.0500, L5500.0550 #### [facility] [address] [place], [id number] Vitamin B12 ser/plasOrdered By: Yoanna Tejeda on 01-11-2025 Cobalamin (Vitamin B12) [Mass/Vol] 1000 pg/mL High 180-914 [facility] Vitamin D, 25-hydroxyOrdered By: Yoanna Tejeda on 01-11-2025 Vitamin D 25-Hydroxy 28.5 ng/mL Low 30-100 [facility] Comment on above: Vitamin D StatusDefi ciency: <20 ng/mL (50nmol/L)Insufficiency: 20-30 ng/mL (50-75 nmol/L)Sufficiency: 30-100 ng/mL (75-250 nmol/L)Toxicity: >100 ng/mL (>250 nmol/L) Vitamin D,25 Hydroxyon 01-11 Vitamin D 25-OH 28.5 ng/mL Low 30-100 [facility] Comment on above: Result Comment: Nancy min D Status Deficiency: <20 ng/mL (50nmol/L) Insufficiency: 20-30 ng/mL (50-75 nmol/L) Sufficiency: 30-100 ng/mL (75-250 nmol/L) Toxicity: >100 ng/mL (>250 nmol/L) Performed By: #### L 3100.3425, L3400.8000, L7000.0750, L3200.1100, L3200.0500, L5500.0550 #### [facility] [address] [place], [place], [id number] White blood cell (WBC) count Ordered By: ED PROVIDER on 01-11-2025 WBC (Bld) [#/Vol] 9.1 10*3/uL 4.4-11.0 [facility] White blood cell (WBC) count Ordered By: Yoanna Tejeda on 01-11-2025 WBC (Bld) [#/Vol] 8.8 10*3/uL 4.4-11.0 [facility] GLUCOSE, GESTATIONAL SCREEN (50G)-135 CUTOFFon 01-01-2025 Glucose [Mass/Vol] 89 mg/dL Normal <135 [facility] Comment on above: Performed By: #### 8 [phone], [phone], 510 #### [facility] [address], [address] [place] [address] Clinical Trial Leader: John Rodriguez MD HEMOGLOBINon 01-01-2025 Hemoglobin (Bld) [Mass/Vol] 8.6 g/dL Low 11.7-15.5 [facility] Comment on above: Performed By: #### 8 [phone], 899, 510 #### [facility] [address], [address] [place] [address] Clinical Trial Leader: John Rodriguez MD TSHon 01-01-2025 TSH Qn 0.40 m[IU]/L Normal [facility] Comment on above: Result Comment: Refe rence Range > or = 20 Years 0.40-4.50 Ranges First trimester 0.26-2.66 Second trimester 0.55-2.73 Third trimester 0.43-2.91 Performed By: #### 8 [phone], 899, 510 #### [facility] [address], [address] [place] [address] Clinical Trial Leader: John Rodriguez MD Laboratory - Chemistry and C hemistry - challengeon 12-31-2024 Glucose [Mass/Vol] 89 mg/dL Normal [facility], [facility] TSH Qn 0.40 m[IU]/L Normal [facility], [facility] Laboratory - Hematology and Cell countson 12-31-2024 Hemoglobin (Bld) [Mass/Vol] 8.6 g/dL Abnormal 11.7 - 15.5 g/dL [facility], [facility] Laboratory - Urinalysison Glucose Test strip (U) [Mass/Vol] Negative Normal [facility], [facility].; [facility] Protein Ql (U) Negative Normal [facility], [facility] Progress Noteon 12-19-2024 Manager Ui Authentication Interface Message Text [facility] Antepartum Consult Note I had the pleasure of seeing your patient, Ms. South, in consultation in regards to her Crohn's. As you know, she is a 34 y.o. at 25w5d by LMP and Ultrasound confirmation. Today she states she is doing well without complaint. Obstetrical History OB History Para Term AB Living 4 2 2 1 2 SAB IAB Ectopic Multiple Live Births 1 2 # Outcome Date GA Lbr Irwin/2nd Weight Sex Type Anes PTL Lv 4 Current 3 Term 06/15/21 39w0d 3.374 kg F CS-LTranv KIKE 2 Term 04/13/19 40w0d 3.685 kg M CS-LTranv KIKE Complications: Failure to Progress in Second Stage 1 SAB 2018 SAB Anatomy ultrasound had no abnormal findings. Past Medical History: Diagnosis Date Crohn disease Gastrointestinal complaints, nonspecific Obesity Past Surgical History: Procedure Laterality Date ABCESS DRAINAGE SECTION, LOW TRANSVERSE COLONOSCOPY Allergies Allergen Reactions Mesalamine Other (See Comments) Current Outpatient Medications Medication Sig Dispense Refill Adalimumab 40 MG/0.4ML pen Inject 0.4 mL (40 mg) into the skin every 14 days ferrous sulfate (FEOSOL) 325 (65 Fe) MG EC tablet Take 1 Tablet (65 mg) by mouth ascorbic acid (VITAMIN C) 500 MG tablet Take by mouth daily MV-Min-Fe Fum-FA-DHA ( 1 PO) Take by mouth No current facility-administered medications for this visit. Social History Socioeconomic History Marital status: Spouse name: Not on file Number of children: Not on file Years of education: Not on file Highest education level: Not on file Occupational History Not on file Tobacco Use Smoking status: Never Smokeless tobacco: Never Substance and Sexual Activity Alcohol use: Not Currently Drug use: Never Sexual activity: Not on file Other Topics Concern Not on file Social History Narrative Not on file Social Drivers of Health Food Insecurity: No Food Insecurity (09/27/2024) Received from [facility] Hunger Vital Sign Worried About Running Out of Food in the Last Year: Never true Ran Out of Food in the Last Year: Never true Transportation Needs: No Transportation Needs (09/27/2024) Received from [facility] PRAPARE - Transportation Lack of Transportation (Medical): No Lack of Transportation (Non-Medical): No Housing Stability: Low Risk (02/22/2024) Received from [facility] Housing Stability Vital Sign Unable to Pay for Housing in the Last Year: No Number of Places Lived in the Last Year: 1 Unstable Housing in the Last Year: No Family History Problem Relation Age of Onset Heart Disease Mother Diabetes Mellitus II Mother Heart Disease Father Review of Systems - negative unless otherwise specified above Vitals: 12/19/24 0937 BP: 110/58 Pulse: 89 Resp: 20 SpO2: 98% Weight: 89.8 kg (198 lb) BMI Readings from Last 1 Encounters: 12/19/24 35.07 kg/m Physical Examination: General appearance - alert, well appearing, and in no distress Mental status - alert, oriented to person, place, and time Chest - No difficulty with breathing Heart - Normal Rate Abdomen - Non tender during US exam Pelvic - Deferred Extremities - no edema noted Ultrasound performed today in the office: please see report for further detail. 1. Single, living IUP at 25w 5d by clinical AKIRA. 2. EFW is 838 g at 48% with the Abdominal circumference at 51%. 3. Amniotic fluid volume appeared normal, 13.1 cm. 4. Placenta is anterior, grade 2. 5. Visualized anatomy appears normal, with limitations as noted above. My Impression and recommendations include the following: Sheri South is a 34 y.o. year old at 25w5d 1) Crohn's disease which is currently asymptomatic. She was diagnosed in 2022. She is currently taking Adalimumab. Jane's most recent flare was 09/2024 - hospitalization and her typical symptoms are NV bleeding and loose stool. She has no bowel surgeries but did have an abscess with fascitis and now fistulas. She has no complications from prior surgeries besides fistulas that are still active but drain less. She has perianal current fistulas. 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 Their recommendations and continued care through is essential. Increased risk of offspring developing IBD - Crohn disease HR 7.7 We then discussed women without a flare in the 6 months prior to have higher likelihood of without complication. However 20% of women will have a flare during . The general risk for a Crohn's flare during is similar to non . There are many medications for the treatment of Crohn's that are safe in . Poorly controlled IBD can lead to growth restriction, labor and delivery, and even increased risk of stillbirth. Optimal control is essential for g (more content not included)... Normal [facility] Laboratory - Urinalysison Glucose Test strip (U) [Mass/Vol] Negative Normal [facility], [facility].; [facility]. Protein Ql (U) Negative Normal [facility].; [facility] US OB DETAIL ANATOMYon 11-12-2024 US OB DETAIL ANATOMY Interpreted by: Lory Winters Indication ======== Detailed Anatomy forCrohn's DIsease/ Ulcerative Colitis, . Class 2 Obesity (BMI 35-39.9) History ====== General History Height 160 cm Height (ft) 5 ft Height (in) 3 in Previous Outcomes 4 Para 2 Children born living ?37w 2 Pregnancies delivered at term (T) 2 Abortions (A) 1 Living children (L) 2 Miscarriages 1 Other: Previous Section Maternal Assessment Height 160 cm Height (ft) 5 ft Height (in) 3 in Weight 95 kg Weight (lb) 210 lb Weight gain 0 kg Weight gain (lb) 0 lb BMI 37.20 kg/m??? Physical Exam Initial weight (lb) 210 lb ========= Hubbard . Number of fetuses: 1 Dating ====== LMP on: 06/22/2024 Cycle: Very certain LMP, regular cycle GA by LMP 20 w + 3 d AKIRA by LMP: 03/29/2025 Conception: LMP GA by prior assessment 20 w + 3 d AKIRA by prior assessment: 03/29/2025 Ultrasound examination on: 11/12/2024 GA by U/S based upon: AC, BPD, Femur, HC GA by U/S 20 w + 3 d AKIRA by U/S: 03/29/2025 Assigned: based on the LMP, selected on 09/28/2024 Assigned GA 20 w + 3 d Assigned AKIRA: 03/29/2025 Growth Overview Exam date GA BPD (mm) HC (mm) AC (mm) FL (mm) HL (mm) EFW (g) 09/28/2024 14w 0d 26.9 74% 101.8 70% 79.5 69% 13.5 43% 15.9 83% 93 50% 11/12/2024 20w 3d 49 66% 177.8 33% 154.4 50% 32 26% 32.2 43% 347 39% Impression ========= complicated by Crohn's disease with first trimester flare and BMI > 35 A targeted anatomic survey was indicated - biometry is consistent with the stated gestational age -Detailed anatomic evaluation of the brain/ventricles, face, heart/outflow tracts and chest anatomy, abdominal organ specific anatomy, number/length/architec ture of limbs and detailed evaluation of the umbilical cord and placenta and other anatomy as clinically indicated was performed. -No malformations were identified on this comprehensive survey within limitations of sonographic evaluation at this gestational age. The placenta and adnexa appear within normal today. -Today's anatomic survey was completed A normal anatomic survey does not exclude all possible structural or functional abnormalities. Thank you for allowing us to participate in the care of your patient General Evaluation Cardiac activity present. FHR 151 bpm. movements: visualized. Presentation: cephalic Placenta: Placental site: anterior, No Previa Seen Umbilical cord: Cord vessels: 3 vessel cord. Insertion site: placental insertion: normal Amniotic fluid: Amount of AF: normal amount Biometry Standard BPD 49.0 mm 20w 6d 66% Hadlock OFD 63.6 mm 65% INTERGROWTH-21st HC 177.8 mm 20w 2d 33% Hadlock Cerebellum tr 22.2 mm 21w 1d 78% Larkin Nuchal fold 4.1 mm AC 154.4 mm 20w 4d 50% Hadlock Femur 32.0 mm 20w 0d 26% Hadlock Humerus 32.2 mm 43% Chitty HC / AC 1.15 43% Hadlock EFW 347 g 20w 2d 39% Hadlock EFW (lb) 0 lb EFW (oz) 12 oz EFW by: Hadlock (VAC-HD-DL-FL) Extended Shake Feeder 8.9 mm CM 3.6 mm 9% Nicolaides Nasal bone 4.4 mm Head / Face / Neck Cephalic index 0.77 31% Nicolaides Nasal bone: present Extremities / Bony Struc FL / BPD 0.65 8% Hadlock FL / HC 0.18 19% Hadlock FL / AC 0.21 17% Hadlock Other Structures FHR 151 bpm Anatomy Cranium: Normal Lateral ventricles: Normal Choroid plexus: Normal Midline falx: Normal Cavum septi pellucidi: Normal Cerebellum: Normal Cisterna magna: Normal Head / Neck Head size: Normal Head shape: Normal Rt lateral ventricle: Normal Lt lateral ventricle: Normal Rt choroid plexus: Normal Lt choroid plexus: Normal Thalami: Normal Cerebellar lobes: Normal Vermis: Normal Neck: Normal Neck: No neck masses seen Lips: Normal Profile: Normal Nose: Normal Face Nasal bone: present Maxilla: Normal Mandible: Normal Orbits: Normal 4-chamber view: Normal RVOT view: Normal LVOT view: Normal 3-vessel view: Normal 5-scegys-ycdqxlp view: Normal Heart / Thorax Situs: situs solitus (normal) Aortic arch view: Normal Bicaval view: Normal Cardiac position: levocardia (normal) Cardiac axis: Normal Cardiac size: normal (approx. 1/3 of thoracic area) Cardiac proportions: proportioned (normal) Cardiac rhythm: regular (normal) Rt lung: Normal Lt lung: Normal Rt diaphragm: Normal Lt diaphragm: Normal Cord insertion: Normal Stomach: Normal Kidneys: Normal Bladder: Normal Abdomen Abdom. wall: Normal Stomach: Stomach size and situs appear normal Rt kidney: Normal Lt kidney: Normal Small bowel: Normal Large bowel: Normal Cervical spine: Normal Thoracic spine: Normal Lumbar spine: Normal Sacral spine: Normal Arms: Normal Hands: normal Legs: Normal Feet: normal Rt upper arm: Normal Rt forearm: Normal Rt hand: Normal Rt fingers: Norm (more content not included)... Normal [facility] US for pregnancyon 5 Interpreted by: Lory Winters Indication ======== Detailed Anatomy forCrohn's DIsease/ Ulcerative Colitis, . Class 2 Obesity (BMI 35-39.9) History ====== General History Height 160 cm Height (ft) 5 ft Height (in) 3 in Previous Outcomes 4 Para 2 Children born living ?37w 2 Pregnancies delivered at term (T) 2 Abortions (A) 1 Living children (L) 2 Miscarriages 1 Other: Previous Section Maternal Assessment Height 160 cm Height (ft) 5 ft Height (in) 3 in Weight 95 kg Weight (lb) 210 lb Weight gain 0 kg Weight gain (lb) 0 lb BMI 37.20 kg/m Physical Exam Initial weight (lb) 210 lb ========= Hubbard . Number of fetuses: 1 Dating ====== LMP on: 06/22/2024 Cycle: Very certain LMP, regular cycle GA by LMP 20 w + 3 d AKIRA by LMP: 03/29/2025 Conception: LMP GA by prior assessment 20 w + 3 d AKIRA by prior assessment: 03/29/2025 Ultrasound examination on: 11/12/2024 GA by U/S based upon: AC, BPD, Femur, HC GA by U/S 20 w + 3 d AKIRA by U/S: 03/29/2025 Assigned: based on the LMP, selected on 09/28/2024 Assigned GA 20 w + 3 d Assigned AKIRA: 03/29/2025 Growth Overview Exam date GA BPD (mm) HC (mm) AC (mm) FL (mm) HL (mm) EFW (g) 09/28/2024 14w 0d 26.9 74% 101.8 70% 79.5 69% 13.5 43% 15.9 83% 93 50% 11/12/2024 20w 3d 49 66% 177.8 33% 154.4 50% 32 26% 32.2 43% 347 39% Impression ========= complicated by Crohn's disease with first trimester flare and BMI > 35 A targeted anatomic survey was indicated - biometry is consistent with the stated gestational age -Detailed anatomic evaluation of the brain/ventricles, face, heart/outflow tracts and chest anatomy, abdominal organ specific anatomy, number/length/architec ture of limbs and detailed evaluation of the umbilical cord and placenta and other anatomy as clinically indicated was performed. -No malformations were identified on this comprehensive survey within limitations of sonographic evaluation at this gestational age. The placenta and adnexa appear within normal today. -Today's anatomic survey was completed A normal anatomic survey does not exclude all possible structural or functional abnormalities. Thank you for allowing us to participate in the care of your patient General Evaluation Cardiac activity present. FHR 151 bpm. movements: visualized. Presentation: cephalic Placenta: Placental site: anterior, No Previa Seen Umbilical cord: Cord vessels: 3 vessel cord. Insertion site: placental insertion: normal Amniotic fluid: Amount of AF: normal amount Biometry Standard BPD 49.0 mm 20w 6d 66% Hadlock OFD 63.6 mm 65% INTERGROWTH-21st HC 177.8 mm 20w 2d 33% Hadlock Cerebellum tr 22.2 mm 21w 1d 78% Larkin Nuchal fold 4.1 mm AC 154.4 mm 20w 4d 50% Hadlock Femur 32.0 mm 20w 0d 26% Hadlock Humerus 32.2 mm 43% Chitty HC / AC 1.15 43% Hadlock EFW 347 g 20w 2d 39% Hadlock EFW (lb) 0 lb EFW (oz) 12 oz EFW by: Hadlock (FUK-IQ-ON-FL) Extended Shake Feeder 8.9 mm CM 3.6 mm 9% Nicolaides Nasal bone 4.4 mm Head / Face / Neck Cephalic index 0.77 31% Nicolaides Nasal bone: present Extremities / Bony Struc FL / BPD 0.65 8% Hadlock FL / HC 0.18 19% Hadlock FL / AC 0.21 17% Hadlock Other Structures FHR 151 bpm Anatomy Cranium: Normal Lateral ventricles: Normal Choroid plexus: Normal Midline falx: Normal Cavum septi pellucidi: Normal Cerebellum: Normal Cisterna magna: Normal Head / Neck Head size: Normal Head shape: Normal Rt lateral ventricle: Normal Lt lateral ventricle: Normal Rt choroid plexus: Normal Lt choroid plexus: Normal Thalami: Normal Cerebellar lobes: Normal Vermis: Normal Neck: Normal Neck: No neck masses seen Lips: Normal Profile: Normal Nose: Normal Face Nasal bone: present Maxilla: Normal Mandible: Normal Orbits: Normal 4-chamber view: Normal RVOT view: Normal LVOT view: Normal 3-vessel view: Normal 9-kmiexi-tnbyaxc view: Normal Heart / Thorax Situs: situs solitus (normal) Aortic arch view: Normal Bicaval view: Normal Cardiac position: levocardia (normal) Cardiac axis: Normal Cardiac size: normal (approx. 1/3 of thoracic area) Cardiac proportions: proportioned (normal) Cardiac rhythm: regular (normal) Rt lung: Normal Lt lung: Normal Rt diaphragm: Normal Lt diaphragm: Normal Cord insertion: Normal Stomach: Normal Kidneys: Normal Bladder: Normal Abdomen Abdom. wall: Normal Stomach: Stomach size and situs appear normal Rt kidney: Normal Lt kidney: Normal Small bowel: Normal Large sebastian (more content not included)... [facility] Lory Winters MD - 11/12/2024 Interpreted by: Lory Winters Indication ======== Detailed Anatomy forCrohn's DIsease/ Ulcerative Colitis, . Class 2 Obesity (BMI 35-39.9) History ====== General History Jzpvbs187 cm Height (ft)5 ft Height (in)3 in Previous Outcomes Gravida4 Para2 Children born living ?37w2 Pregnancies delivered at term (T)2 Abortions (A)1 Living children (L)2 Miscarriages1 Other:Previous Section Maternal Assessment Fwygfv387 cm Height (ft)5 ft Height (in)3 in Cfqtep73 kg Weight (lb)210 lb Weight gain0 kg Weight gain (lb)0 lb BMI37.20 kg/m Physical Exam Initial weight (lb)210 lb ========= Hubbard . Number of fetuses: 1 Dating ====== LMP on:06/22/2024 Cycle:Very certain LMP, regular cycle GA by LMP20 w + 3 d AKIRA by LMP:03/29/2025 Conception:LMP GA by prior nolaxdwpyq39 w + 3 d AKIRA by prior assessment:03/29/2025 Ultrasound examination on:11/12/2024 GA by U/S based upon:AC, BPD, Femur, HC GA by U/S20 w + 3 d AKIRA by U/S:03/29/2025 Assigned:based on the LMP, selected on 09/28/2024 Assigned GA20 w + 3 d Assigned AKIRA:03/29/2025 Growth Overview Exam date GA BPD (mm) HC (mm) AC (mm) FL (mm) HL (mm) EFW (g) 09/28/2024 14w 0d 26.9 74% 101.8 70% 79.5 69% 13.5 43% 15.9 83% 93 50% 11/12/2024 20w 3d 49 66% 177.8 33% 154.4 50% 32 26% 32.2 43% 347 39% Impression ========= complicated by Crohn's disease with first trimester flare and BMI > 35 A targeted anatomic survey was indicated - biometry is consistent with the stated gestational age -Detailed anatomic evaluation of the brain/ventricles, face, heart/outflow tracts and chest anatomy, abdominal organ specific anatomy, number/length/architec ture of limbs and detailed evaluation of the umbilical cord and placenta and other anatomy as clinically indicated was performed. -No malformations were identified on this comprehensive survey within limitations of sonographic evaluation at this gestational age. The placenta and adnexa appear within normal today. -Today's anatomic survey was completed A normal anatomic survey does not exclude all possible structural or functional abnormalities. Thank you for allowing us to participate in the care of your patient General Evaluation Cardiac activity present. FHR 151 bpm. movements: visualized. Presentation: cephalic Placenta: Placental site: anterior, No Previa Seen Umbilical cord: Cord vessels: 3 vessel cord. Insertion site: placental insertion: normal Amniotic fluid: Amount of AF: normal amount Biometry Standard BPD49.0 mm20w 6d 66% Hadlock OFD63.6 mm 65% INTERGROWTH-21st HC177.8 mm20w 2d 33% Hadlock Cerebellum tr22.2 mm21w 1d 78% Larkin Nuchal fold4.1 mm AC154.4 mm20w 4d 50% Hadlock Femur32.0 mm20w 0d 26% Hadlock [place]83.2 mm 43% Chitty HC / AC1.15 43% Hadlock FEN277 g20w 2d 39% Hadlock EFW (lb)0 lb EFW (oz)12 oz EFW by:Hadlock (MRE-BZ-YA-FL) Extended Vp8.9 mm CM3.6 mm 9% Nicolaides Nasal bone4.4 mm Head / Face / Neck Cephalic index0.77 31% Nicolaides Nasal bone:present Extremities / Bony Struc FL / BPD0.65 8% Hadlock FL / HC0.18 19% Hadlock FL / AC0.21 17% Hadlock Other Structures RMA427 bpm Anatomy Cranium:Normal Lateral ventricles:Normal Choroid plexus:Normal Midline falx:Normal Cavum septi pellucidi:Normal Cerebellum:Normal Cisterna magna:Normal Head / Neck Head size:Normal Head shape:Normal Rt lateral ventricle:Normal Lt lateral ventricle:Normal Rt choroid plexus:Normal Lt choroid plexus:Normal Thalami:Normal Cerebellar lobes:Normal Vermis:Normal Neck:Normal Neck:No neck masses seen Lips:Normal Profile:Normal Nose:Normal Face Nasal bone:present Maxilla:Normal Mandible:Normal Orbits:Normal 4-chamber view:Normal RVOT view:Normal LVOT view:Normal 3-vessel view:Normal 9-vkmiin-egpoadw view:Normal Heart / Thorax Situs:situs solitus (normal) Aortic arch view:Normal Bicaval view:Normal Cardiac position:levocardia (normal) Cardiac axis:Normal Cardiac size:normal (approx. 1/3 of thoracic area) Cardiac proportions:proportion ed (normal) Cardiac rhythm:regular (normal) Rt lung:Normal Lt lung:Normal Rt diaphragm:Normal Lt diaphragm:Normal Cord insertion:Normal Stomach:Normal Kidneys:Normal Bladder:Normal Abdomen Abdom. wall:Normal Stomach:Stomach size and situs appear normal Rt kidney:Normal Lt kidney:Normal Small bowel:Normal Large bowel:Normal Cervical spine:Normal Thoracic spine:Normal Lumbar spine:Normal Sacral spine:Normal Arms:Normal Hands:normal Legs:Normal Feet:normal Rt upper arm:Normal Rt forearm:Normal Rt hand:Normal Rt fingers:Normal Lt upper arm:N (more content not included)... [facility] Work Phone: Radiology Study observation (narrative) [facility] Work Phone: US for pregnancyOrdered By: Lory Winters on 11-12-2024 [facility] Work Phone: Laboratory - Urinalysison Glucose Test strip (U) [Mass/Vol] Negative Normal [facility], [facility]. Protein Ql (U) trace Normal [facility], [facility]. OBSTETRIC PANELon 10-10-2024 ABO group Nom (Bld) AB Normal [facility] Comment on above: Performed By: #### 2 209, , #### [facility] [place] [address] Clinical Trial Leader: John Rodriguez MD ANTIBODY SCREEN, RBC W/REFL ID, TITER AND AG Detected Normal [facility] Comment on above: Result Comment: Refe rence range No antibodies detected This assay is a screening test for the detection of red blood cell antibodies. The test is not to be used for pretransfusion screening or for the medical management of an alloimmunized . Performed By: #### 2 209, , #### [facility] [place] [address] Clinical Trial Leader: John Rodriguez MD Basophils (Bld) [#/Vol] 0.016 10*3/uL Normal 0-200 [facility] Comment on above: Performed By: #### 2 209, , #### [facility] [place] [address] Clinical Trial Leader: John Rodriguez MD Basophils/100 WBC (Bld) 0.2 % Normal [facility] Comment on above: Performed By: #### 2 209, , #### [facility] [place] [address] Clinical Trial Leader: John Rodriguez MD Eosinophils (Bld) [#/Vol] 0.008 10*3/uL Low 15-500 [facility] Comment on above: Performed By: #### 2 209, , #### [facility] [place] [address] Clinical Trial Leader: John Rodriguez MD Eosinophils/100 WBC (Bld) 0.1 % Normal [facility] Comment on above: Performed By: #### 2 0, , #### [facility] of [place] [address] Clinical Trial Leader: John Rodriguez MD Erythrocyte distribution width (RBC) [Ratio] 13.4 % Normal 11.0-15.0 [facility] Comment on above: Performed By: #### 2 0210, , #### [facility] of [address], [address] [place] [address] Clinical Trial Leader: John Rodriguez MD Hematocrit (Bld) [Volume fraction] 30.7 % Low 35.0-45.0 [facility] Comment on above: Performed By: #### 2 0, , #### [facility] of [place] [address] Clinical Trial Leader: John Rodriguez MD Hemoglobin (Bld) [Mass/Vol] 9.4 g/dL Low 11.7-15.5 [facility] Comment on above: Performed By: #### 2 209, , #### [facility] of [place] [address] Clinical Trial Leader: John Rodriguez MD HEPATITIS B SURFACE ANTIGEN Non-Reactive Normal NON-REACTIVE [facility] Comment on above: Result Comment: For additional information, please refer to http://education.[employer]/faq/PJA582 (This link is being provided for informational/ educational purposes only.) Performed By: #### 2 0210, , #### [facility] of [address], [address] [place] [address] Clinical Trial Leader: John Rodriguez MD Lymphocytes (Bld) [#/Vol] 1.806 10*3/uL Normal 850-3900 [facility] Comment on above: Performed By: #### 2 021, , #### [facility] of [address], [address] [place] [address] Clinical Trial Leader: John Rodriguez MD Lymphocytes/100 WBC (Bld) 22.3 % Normal [facility] Comment on above: Performed By: #### 2 209, #### [facility] [place] [address] Clinical Trial Leader: John Rodriguez MD MCH (RBC) [Entitic mass] 24.4 pg Low 27.0-33.0 [facility] Comment on above: Performed By: #### 2 209, #### [facility] [place] [address] Clinical Trial Leader: John Rodriguez MD MCHC (RBC) [Mass/Vol] 30.6 g/dL Low 32.0-36.[address] [facility] Comment on above: Result Comment: For adults, a slight decrease in the calculated MCHC value (in the range of 30 to 32 g/dL) is most likely not clinically significant; however, it should be interpreted with caution in correlation with other red cell parameters and the patient's clinical condition. Performed By: #### 2 209, #### [facility] [place] [address] Clinical Trial Leader: John Rodriguez MD MCV (RBC) [Entitic vol] 79.7 fL Low 80.0-100.0 [facility] Comment on above: Performed By: #### 2 209, #### [facility] [place] [address] Clinical Trial Leader: John Rodriguez MD Monocytes (Bld) [#/Vol] 0.284 10*3/uL Normal 200-950 [facility] Comment on above: Performed By: #### 2 209, #### [facility] [place] [address] Clinical Trial Leader: John Rodriguez MD Monocytes/100 WBC (Bld) 3.5 % Normal [facility] Comment on above: Performed By: #### 2 209, , #### [facility] of [address], [address] [place] [address] Clinical Trial Leader: John Rodriguez MD Neutrophils (Bld) [#/Vol] 5.986 10*3/uL Normal 0073-1894 [facility] Comment on above: Performed By: #### 2 0210, , #### [facility] of [address], [address] [place] [address] Clinical Trial Leader: John Rodriguez MD Neutrophils/100 WBC (Bld) 73.9 % Normal [facility] Comment on above: Performed By: #### 2 0210, , #### [facility] of [address], [address] [place] [address] Clinical Trial Leader: John Rodriguez MD Platelet mean volume (Bld) [Entitic vol] 8.9 fL Normal 7.5-12.5 [facility] Comment on above: Performed By: #### 2 0210, , #### [facility] of [address], [address] [place] [address] Clinical Trial Leader: John Rodriguez MD Platelets (Bld) [#/Vol] 463 10*3/uL High 140-400 [facility] Comment on above: Performed By: #### 2 0210, , #### [facility] of [address], [address] [place] [address] Clinical Trial Leader: John Rodriguez MD RBC (Bld) [#/Vol] 3.85 10*6/uL Normal 3.80-5.10 [facility] Comment on above: Performed By: #### 2 0210, , #### [facility] of [address], [address] [place] [address] Clinical Trial Leader: John Rodriguez MD RH TYPE Positive Normal [facility] Comment on above: Result Comment: For additional information, please refer to http://education.[employer]/faq/RAD506 (This link is being provided for informational/ educational purposes only.) Performed By: #### 2 209, , #### [facility] [place] [address] Clinical Trial Leader: John Rodriguez MD RPR (DX) W/REFL TITER AND CONFIRMATORY TESTING Non-Reactive Normal NON-REACTIVE [facility] Comment on above: Result Comment: No laboratory evidence of syphilis. If recent exposure is suspected, submit a new sample in 2-4 weeks. Performed By: #### 2 209, , #### [facility] [address], [address] [place] [address] Clinical Trial Leader: John Rodriguez MD RUBELLA AB (IGG), IMMUNE STATUS <0.90 Low [facility] Comment on above: Result Comment: Inde x Interpretation ----- <0.90 Not consistent with immunity 0.90-0.99 Equivocal > or = 1.00 Consistent with immunity The presence of rubella IgG antibody suggests immunization or past or current infection with rubella virus. Performed By: #### 2 209, , #### [facility] [place] [address] Clinical Trial Leader: John Rodriguez MD WBC (Bld) [#/Vol] 8.1 10*3/uL Normal 3.8-10.8 [facility] Comment on above: Performed By: #### 2 209, #### [facility] [place] [address] Clinical Trial Leader: John Rodriguez MD T4, FREEon 10-10-2024 Free T4 [Mass/Vol] 1.0 ng/dL Normal 0.8-1.8 [facility] Comment on above: Performed By: #### 2 209, #### [facility] [place] [address] Clinical Trial Leader: John Rodriguez MD TSH W/REFLEX TO FT4on 2024 TSH W/REFLEX TO FT4 0.05 mIU/L Low [facility] Comment on above: Result Comment: Refe rence Range > or = 20 Years 0.40-4.50 Ranges First trimester 0.26-2.66 Second trimester 0.55-2.73 Third trimester 0.43-2.91 Performed By: #### 2 [id number] [phone] [id number] #### [facility] [address], [address] [place] [address] Clinical Trial Leader: John Rodriguez MD Laboratory - Blood bankon ABO group Nom (Bld) AB Normal [facility]; [employer] Rh Nom (Amn fld) Positive Normal [facility].; [employer]. Laboratory - Chemistry and C hemistry - challengeon 10-08-2024 Bilirubin Ql (U) Negative Normal [facility].; [employer]. Free T4 [Mass/Vol] 1.0 ng/dL Normal 0.8 - 1.8 ng/dL [facility] [employer]. Work Phone: Ketones Ql (U) Negative Normal [facility]; [employer]. pH (U) 7.0 [pH] Normal [facility] [employer]. Specific gravity (U) [Rel density] 1.020 Normal [facility]; [employer]. Urobilinogen Qn (U) 1.0 mg/dL Normal [facility] [employer] Laboratory - Hematology and Cell countson 10-08-2024 Basophils (Bld) [#/Vol] 0.016 10*3/uL Normal 0 - 200 {cells/uL} [facility] [employer]. Basophils/100 WBC (Bld) 0.2 % Normal [facility].; [employer]. Eosinophils (Bld) [#/Vol] 0.008 10*3/uL Abnormal 15 - 500 {cells/uL} [facility] To Get [facility]ved For [facility].; [facility] To Get Approved For [facility]. Eosinophils/100 WBC (Bld) 0.1 % Normal [facility].; [facility] To Get Approved For [facility]. Erythrocyte distribution width (RBC) [Ratio] 13.4 % Normal 11.0 - 15.0 % [facility].; [facility], [facility] Hematocrit (Bld) [Volume fraction] 30.7 % Abnormal 35.0 - 45.0 % [facility] To Get Approved For [facility].; [facility], [facility] Hemoglobin (Bld) [Mass/Vol] 9.4 g/dL Abnormal 11.7 - 15.5 g/dL [facility] To Get Approved For [facility].; [facility], [facility] Hemoglobin Ql (U) Negative Normal [facility] To Get Approved For [facility].; [facility], [facility] Lymphocytes (Bld) [#/Vol] 1.806 10*3/uL Normal 850 - 3900 {cells/uL} [facility], [facility].; [facility], [facility]. Lymphocytes/100 WBC (Bld) 22.3 % Normal [facility] To Get Approved For [facility].; [facility] [employer] [facility], [facility]. MCH (RBC) [Entitic mass] 24.4 pg Abnormal 27.0 - 33.0 pg [facility] To Get Approved For [facility].; [facility] [employer] [facility], [facility]. MCHC (RBC) [Mass/Vol] 30.6 g/dL Abnormal 32.0 - 36.0 g/dL [facility], [facility].; [facility] [employer] [facility], [facility]. MCV (RBC) [Entitic vol] 79.7 fL Abnormal 80.0 - 100.0 fL [facility] To Get Approved For [facility].; [facility], [facility]. Monocytes (Bld) [#/Vol] 0.284 10*3/uL Normal 200 - 950 {cells/uL} [facility] To Get Approved For [facility].; [employer], [facility]. Monocytes/100 WBC (Bld) 3.5 % Normal [facility] To Get Approved For [facility].; [facility], [facility]. Neutrophils (Bld) [#/Vol] 5.986 10*3/uL Normal 1500 - 7800 {cells/uL} [facility], [facility].; [employer], [facility]. Neutrophils/100 WBC (Bld) 73.9 % Normal [facility] To Get Approved For [facility]; [facility] To Get Approved For [facility] Platelet mean volume (Bld) [Entitic vol] 8.9 fL Normal 7.5 - 12.5 fL [facility]; [facility] To Get Approved For [facility] Platelets (Bld) [#/Vol] 463 10*3/uL Abnormal 140 - 400 [facility]; [facility], [facility]. RBC (Bld) [#/Vol] 3.85 10*6/uL Normal 3.80 - 5.1 0 {Million/uL} [facility] To Get Approved For [facility]; [facility] To Get Approved For [facility]. WBC (Bld) [#/Vol] 8.1 10*3/uL Normal 3.8 - 10.8 [facility] To Get Approved For [facility]; [facility] To Get Approved For [facility] Laboratory - Specimen inform ationon 10-08-2024 Appearance (U) clear Normal [facility] To Get [facility] For [facility]; [facility] Skin Scan Color (U) yellow Normal [facility] To Get Approved For [facility]; [facility] [facility] To Get [facility]ved For [facility] Laboratory - Urinalysison Glucose Test strip (U) [Mass/Vol] Negative Normal [facility] To Get Approved For [facility].; [facility] [employer] [facility] To Get Approved For [facility]. Leukocyte esterase Test strip Ql (U) trace Normal [facility] To Get Approved For [facility]; [facility] To Get Approved For [facility]. Nitrite Ql (U) Negative Normal [facility] To Get Approved For [facility].; [employer] [facility] To Get Approved For [facility]. Protein Ql (U) trace Normal [facility] To Get Approved For [facility].; [employer] [facility] To Get Approved For [facility] No Panel Informationon 10-08 ANTIBODY SCREEN, RBC W/REFL ID, TITER AND AG Detected Normal [facility] To Get Approved For [facility]; [place] [employer] [facility] To Get Approved For [facility] HEPATITIS B SURFACE ANTIGEN Non-Reactive Normal [facility] To Get Approved For [facility]; [employer] [facility] To Get Approved For [facility] RPR (DX) W/REFL TITER AND CONFIRMATORY TESTING Non-Reactive Normal [facility] To Get Approved For [facility]; [facility] To Get Approved For [facility] RUBELLA AB (IGG), IMMUNE STATUS <0.90 Abnormal [facility] To Get Approved For [facility]; [employer], [facility]. TSH W/REFLEX TO FT4 0.05 {mIU/L} Abnormal [facility]; [facility] Adalimumab and Antibody to A dalimumab Quantitationon 10-02-2024 Adalimumab Ab IA [Mass/Vol] <20 ng/mL [facility] Comment on above: INTERPRETIVE INFORMA TION: Antibodies to Adalimumab Quantitation Limit of Quantitation = 20 ng/mL Results of 20 ng/mL or higher indicate the detection of antibodies against adalimumab or an adalimumab biosimilar. Interpret in the context of adalimumab or adalimumab biosimilar trough concentration to determine clinical significance and impact on treatment efficacy. This test was developed and its performance characteristics determined by [facility]. It has not been cleared or approved by the U.S. Food and Drug Administration. This test was performed in a CLIA-certified laboratory and is intended for clinical purposes. Performed By: [facility] [address] [place] [address] Supervisor Soldering: Jaylon Owusu MD, PhD CLIA Number: [id number] Adalimumab IA [Mass/Vol] 6.2 ug/mL [facility] Comment on above: INTERPRETIVE INFORMA TION: Adalimumab Quantitation Limit of Quantitation = 0.4 ug/mL. Results of 0.4 ug/mL or higher indicate the detection of adalimumab or an adalimumab biosimilar. Therapeutic level may vary depending on the disease being treated. [facility] Basic metabolic 2000 panelon 10-02-2024 Anion gap [Moles/Vol] 13 mmol/L 10 - 2 0 mmol/L [facility] Calcium [Mass/Vol] 8.7 mg/dL 8.6 - 10. 6 mg/dL [facility] Chloride [Moles/Vol] 98 mmol/L 98 - 10 7 mmol/L [facility] CO2 [Moles/Vol] 26 mmol/L 21 - 32 mmol/L [facility] Creatinine [Mass/Vol] 0.44 mg/dL Low 0.50 - 1.05 mg/dL [facility] eGFR - PINF [facility] Comment on above: Calculations of lazarus mated GFR are performed using the 2020 CKD-EPI Study Refit equation without the race variable for the IDMS-Traceable creatinine methods. https://jasn.asnjournals.org/content//ASN.54909 55885 Glucose [Mass/Vol] 84 mg/dL 74 - 99 mg/dL [facility] Interpretation and review of laboratory results Abnormal [facility] Potassium [Moles/Vol] 3.6 mmol/L 3.5 - 5.3 mmol/L [facility] Sodium [Moles/Vol] 133 mmol/L Low 136 - 145 mmol/L [facility] Urea nitrogen [Mass/Vol] 6 mg/dL 6 - 23 mg/dL [facility] Anion gap [Moles/Vol] 13 mmol/L Normal 10-20 [facility] Comment on above: Performed By: #### 5 8410-2 #### LINSEY Cuevas ([id number]) [facility] ([facility] [id number] [place] [address]23 Calcium [Mass/Vol] 8.7 mg/dL Normal 8.6-10.6 [facility] Comment on above: Performed By: #### 5 8410-2 #### LINSEY Cuevas ([id number]) [facility] ([facility] [id number] [place] [address] 37417 Chloride [Moles/Vol] 98 mmol/L Normal 98-107 [facility] Comment on above: Performed By: #### 5 8410-2 #### LINSEY ESCOBAR L ([id number]) [facility] ([facility] [id number] [place] [address] 68565 CO2 [Moles/Vol] 26 mmol/L Normal 21-32 [facility] Comment on above: Performed By: #### 5 8410-2 #### LINSEY ESCOBAR L ([id number]) [facility] ([facility] [address] [place] [address] 52242 Creatinine [Mass/Vol] 0.44 mg/dL Low 0.50-1.05 [facility] Comment on above: Performed By: #### 5 8410-2 #### LINSEY ESCOBAR L ([id number]) [facility] ([facility] [address] [place] [address] 98538 GFR/1.73 sq M.predicted MDRD (S/P/Bld) [Vol rate/Area] mL/min/{1.73_m2} Normal >60 [facility] Comment on above: Result Comment: Calc ulations of estimated GFR are performed using the 2020 CKD-EPI Study Refit equation without the race variable for the IDMS-Traceable creatinine methods. https://jasn.asnjournals.org/content/early/ASN.86395 09072 Performed By: #### 5 8410-2 #### LINSEY Cuevas (60732) [facility] ([facility] [id number] [place] [address] 99480 Glucose [Mass/Vol] 84 mg/dL Normal 74-99 [facility] Comment on above: Performed By: #### 5 8410-2 #### LINSEY ESCOBAR L ([id number]) [facility] ([facility] [address] [place] [address] 71957 Potassium [Moles/Vol] 3.6 mmol/L Normal 3.5-5.3 [facility] Comment on above: Performed By: #### 5 8410-2 #### LINSEY WHITEMOHILDAER L ([id number]) [facility] ([facility] [address] [place] [address] 70088 Sodium [Moles/Vol] 133 mmol/L Low 136-145 [facility] Comment on above: Performed By: #### 5 8410-2 #### LINSEY WHITEMOTZER L ([id number]) [facility] ([facility] [address] [place] [address] 86542 Urea nitrogen [Mass/Vol] 6 mg/dL Normal 6-23 [facility] Comment on above: Performed By: #### 5 8410-2 #### LINSEY WUER L ([id number]) [facility] ([facility] [address] [place] [address] 10674 Blood type and Indirect anti body screen panel (Bld)on 10-02-2024 ABO group Nom (Bld) AB [facility] Blood group antibody screen Ql Negative [facility] D Ag Ql (Bld) Positive [facility] ABO group Nom (Bld) AB Normal [facility] Comment on above: Performed By: #### 3 4529-8 #### LINSEY Cuevas ([id number]) [facility] ([facility] [address] [place], [place] [phone] Blood group antibody screen Ql Negative [facility] Comment on above: Performed By: #### 3 4529-8 #### LINSEY Cuevas ([id number]) [facility] ([facility] [address] [place] [address] D Ag Ql (Bld) Positive [facility] Comment on above: Performed By: #### 3 4529-8 #### LINSEY Cuevas ([id number]) [facility] ([facility] [address] [place], [place] [phone] CBC W Auto Differential pane l (Bld)on 10-02-2024 Basophils (Bld) [#/Vol] 0.03 10*3/uL [facility] Basophils/100 WBC (Bld) 0.3 % 0.0 - 2.0 % [facility] Eosinophils (Bld) [#/Vol] 0.15 10*3/uL [facility] Eosinophils/100 WBC (Bld) 1.3 % 0.0 - 6.0 % [facility] Erythrocyte distribution width (RBC) [Ratio] 13.7 % 11.5 - 14.5 % [facility] Hematocrit (Bld) [Volume fraction] 31.4 % Low 36.0 - 46.0 % [facility] Hemoglobin (Bld) [Mass/Vol] 9.8 g/dL Low 12.0 - 16.0 g/dL [facility] Immature granulocytes (Bld) [#/Vol] 0.16 10*3/uL [facility] Immature granulocytes/100 WBC (Bld) 1.4 % High 0.0 - 0.9 % [facility] Comment on above: Immature Granulocyte Count (IG) includes promyelocytes, myelocytes and metamyelocytes but does not include bands. Percent differential counts (%) should be interpreted in the context of the absolute cell counts (cells/UL). Interpretation and review of laboratory results Abnormal [facility] Lymphocytes (Bld) [#/Vol] 2.57 10*3/uL [facility] Lymphocytes/100 WBC (Bld) 21.9 % 13.0 - 44.0 % [facility] MCH (RBC) [Entitic mass] 24.9 pg Low 26.0 - 34.0 pg [facility] MCHC (RBC) [Mass/Vol] 31.2 g/dL Low 32.0 - 36.0 g/dL [facility] MCV (RBC) [Entitic vol] 80 fL 80 - 100 fL [facility] Monocytes (Bld) [#/Vol] 1.23 10*3/uL High [facility] Monocytes/100 WBC (Bld) 10.5 % 2.0 - 10.0 % [facility] Neutrophils (Bld) [#/Vol] 7.59 10*3/uL [facility] Comment on above: Percent differential counts (%) should be interpreted in the context of the absolute cell counts (cells/uL). Neutrophils/100 WBC (Bld) 64.6 % 40.0 - 80.0 % [facility] Nucleated RBC/100 WBC (Bld) [Ratio] 0 % [facility] Platelets (Bld) [#/Vol] 365 10*3/uL [facility] RBC (Bld) [#/Vol] 3.94 10*6/uL Low [facility] WBC (Bld) [#/Vol] 11.7 10*3/uL High [facility] Basophils (Bld) [#/Vol] 0.03 x10*3/uL Normal 0.00-0.10 [facility] Comment on above: Performed By: #### 5 8410-2 #### LINSEY Cuevas ([id number]) [facility] ([facility] [address] [place] [address] Basophils/100 WBC (Bld) 0.3 % Normal 0.0-2.0 [facility] Comment on above: Performed By: #### 5 8410-2 #### LINSEY Cuevas ([id number]) [facility] ([facility] [address] [place] [address] 12576 Eosinophils (Bld) [#/Vol] 0.15 x10*3/uL Normal 0.00-0.70 [facility] Comment on above: Performed By: #### 5 8410-2 #### LINSEY Cuevas ([id number]) [facility] ([facility] [address] [place] [address] 72856 Eosinophils/100 WBC (Bld) 1.3 % Normal 0.0-6.0 [facility] Comment on above: Performed By: #### 5 8410-2 #### LINSEY Cuevas (29195) [facility] ([facility] [address] [place] [address] 09060 Erythrocyte distribution width (RBC) [Ratio] 13.7 % Normal 11.5-14.5 [facility] Comment on above: Performed By: #### 5 8410-2 #### LINSEY Cuevas ([id number]) [facility] ([facility] [address] [place] [address] 46761 Hematocrit (Bld) [Volume fraction] 31.4 % Low 36.0-46.0 [facility] Comment on above: Performed By: #### 5 8410-2 #### LINSEY Cuevas ([id number]) [facility] ([facility] [address] [place] [address] 23543 Hemoglobin (Bld) [Mass/Vol] 9.8 g/dL Low 12.0-16.0 [facility] Comment on above: Performed By: #### 5 8410-2 #### LINSEY Cuevas (43812) [facility] ([facility] [address] [place] [address] 46958 Immature granulocytes (Bld) [#/Vol] 0.16 x10*3/uL Normal 0.00-0.70 [facility] Comment on above: Performed By: #### 5 8410-2 #### LINSEY Cuevas (15759) [facility] ([facility] [address] [place] [address] 03451 Immature granulocytes/100 WBC (Bld) 1.4 % High 0.0-0.9 [facility] Comment on above: Result Comment: Kiah ture Granulocyte Count (IG) includes promyelocytes, myelocytes and metamyelocytes but does not include bands. Percent differential counts (%) should be interpreted in the context of the absolute cell counts (cells/UL). Performed By: #### 5 8410-2 #### LINSEY Cuevas (32285) [facility] ([facility] [address] [place] [address] 91007 Lymphocytes (Bld) [#/Vol] 2.57 x10*3/uL Normal 1.20-4.80 [facility] Comment on above: Performed By: #### 5 8410-2 #### LINSEY Cuevas ([id number]) [facility] ([facility] [address] [place] [address] 13205 Lymphocytes/100 WBC (Bld) 21.9 % Normal 13.0-44.0 [facility] Comment on above: Performed By: #### 5 8410-2 #### LINSEY Cuevas ([id number]) [facility] ([facility] [address] [place] [address] 03017 MCH (RBC) [Entitic mass] 24.9 pg Low 26.0-34.0 [facility] Comment on above: Performed By: #### 5 8410-2 #### LINSEY Cuevas (21875) [facility] ([facility] [address] [place] [address] 63700 MCHC (RBC) [Mass/Vol] 31.2 g/dL Low 32.0-36.0 [facility] Comment on above: Performed By: #### 5 8410-2 #### LINSEY Cuevas ([id number]) [facility] ([facility] [address] [place] [address] 32301 MCV (RBC) [Entitic vol] 80 fL Normal 80-100 [facility] Comment on above: Performed By: #### 5 8410-2 #### LINSEY Cuevas (29129) [facility] ([facility] [address] [place] [address] Monocytes (Bld) [#/Vol] 1.23 x10*3/uL High 0.10-1.00 [facility] Comment on above: Performed By: #### 5 8410-2 #### LINSEY Cuevas (24789) [facility] ([facility] [id number] [place] [address] 30914 Monocytes/100 WBC (Bld) 10.5 % Normal 2.0-10.0 [facility] Comment on above: Performed By: #### 5 8410-2 #### LINSEY Cuevas (73051) [facility] ([facility] [address] [place] [address] 69857 Neutrophils (Bld) [#/Vol] 7.59 x10*3/uL Normal 1.20-7.70 [facility] Comment on above: Result Comment: Perc ent differential counts (%) should be interpreted in the context of the absolute cell counts (cells/uL). Performed By: #### 5 8410-2 #### LINSEY Cuevas (55883) [facility] ([facility] [address] [place] [address] 65888 Neutrophils/100 WBC (Bld) 64.6 % Normal 40.0-80.0 [facility] Comment on above: Performed By: #### 5 8410-2 #### LINSEY Cuevas (84662) [facility] ([facility] [id number] [place] [address] 81597 Nucleated RBC/100 WBC (Bld) [Ratio] 0.0 /100 WBCs Normal 0.0-0.0 [facility] Comment on above: Performed By: #### 5 8410-2 #### LINSEY Cuevas ([id number]) [facility] ([facility] [id number] [place] [address] 70710 Platelets (Bld) [#/Vol] 365 x10*3/uL Normal 150-450 [facility] Comment on above: Performed By: #### 5 8410-2 #### LINSEY Cuevas ([id number]) [facility] ([facility] [address] [place] [address] RBC (Bld) [#/Vol] 3.94 x10*6/uL Low 4.00-5.20 [facility] Comment on above: Performed By: #### 5 8410-2 #### LINSEY Cuevas (52932) [facility] ([facility] [address] [place] [address] WBC (Bld) [#/Vol] 11.7 x10*3/uL High 4.4-11.3 [facility] Comment on above: Performed By: #### 5 8410-2 #### LINSEY Cuevas (80578) [facility] ([facility] [id number] [place] [address] 49216 Magnesiumon 10-02-2024 Magnesium [Mass/Vol] 1.8 mg/dL 1.60 - 2.40 mg/dL [facility] Magnesium [Mass/Vol] 1.80 mg/dL Normal 1.60-2.40 [facility] Comment on above: Performed By: #### 5 8410-2 #### LINSEY Cuevas (78651) [facility] ([facility] [id number] [place] [address] 09795 Magnesium [Mass/Vol]on 10-02 Interpretation and review of laboratory results Normal [facility] No Panel Informationon 10-02 [facility] Basic metabolic 2000 panelon 10-01-2024 Anion gap [Moles/Vol] 12 mmol/L 10 - 2 0 mmol/L [facility] Calcium [Mass/Vol] 9 mg/dL 8.6 - 10. 6 mg/dL [facility] Chloride [Moles/Vol] 98 mmol/L 98 - 10 7 mmol/L [facility] CO2 [Moles/Vol] 27 mmol/L 21 - 32 mmol/L [facility] Creatinine [Mass/Vol] 0.37 mg/dL Low 0.50 - 1.05 mg/dL [facility] eGFR - PINF [facility] Comment on above: Calculations of lazarus mated GFR are performed using the 2020 CKD-EPI Study Refit equation without the race variable for the IDMS-Traceable creatinine methods. https://jasn.asnjournals.org/content//ASN.43489 79637 Glucose [Mass/Vol] 98 mg/dL 74 - 99 mg/dL [facility] Interpretation and review of laboratory results Abnormal [facility] Potassium [Moles/Vol] 4 mmol/L 3.5 - 5.3 mmol/L [facility] Sodium [Moles/Vol] 133 mmol/L Low 136 - 145 mmol/L [facility] Urea nitrogen [Mass/Vol] 7 mg/dL 6 - 23 mg/dL [facility] Anion gap [Moles/Vol] 12 mmol/L 10 - 2 0 mmol/L [facility] Calcium [Mass/Vol] 8.8 mg/dL 8.6 - 10. 6 mg/dL [facility] Chloride [Moles/Vol] 98 mmol/L 98 - 10 7 mmol/L [facility] CO2 [Moles/Vol] 26 mmol/L 21 - 32 mmol/L [facility] Creatinine [Mass/Vol] 0.36 mg/dL Low 0.50 - 1.05 mg/dL [facility] eGFR - PINF [facility] Comment on above: Calculations of lazarus mated GFR are performed using the 2020 CKD-EPI Study Refit equation without the race variable for the IDMS-Traceable creatinine methods. https://jasn.asnjournals.org/content//ASN.91914 01176 Glucose [Mass/Vol] 97 mg/dL 74 - 99 mg/dL [facility] Interpretation and review of laboratory results Abnormal [facility] Potassium [Moles/Vol] 3.9 mmol/L 3.5 - 5.3 mmol/L [facility] Sodium [Moles/Vol] 132 mmol/L Low 136 - 145 mmol/L [facility] Urea nitrogen [Mass/Vol] 6 mg/dL 6 - 23 mg/dL [facility] Anion gap [Moles/Vol] 12 mmol/L Normal 10-20 [facility] Comment on above: Performed By: #### 5 8410-2 #### LINSEY Cuevas ([id number]) [facility] ([facility] [address] [place] [address] 06612 Calcium [Mass/Vol] 8.8 mg/dL Normal 8.6-10.6 [facility] Comment on above: Performed By: #### 5 8410-2 #### LINSEY Cuevas ([id number]) [facility] ([facility]) [id number] [place] [address] 95415 Calcium [Mass/Vol] 9.0 mg/dL Normal 8.6-10.6 [facility] Comment on above: Performed By: #### 5 8410-2 #### LINSEY Cuevas ([id number]) [facility] ([facility] [address] [place] [address] 86611 Chloride [Moles/Vol] 98 mmol/L Normal 98-107 [facility] Comment on above: Performed By: #### 5 8410-2 #### LINSEY Cuevas ([id number]) [facility] ([facility] [address] [place] [address] 20195 CO2 [Moles/Vol] 26 mmol/L Normal 21-32 [facility] Comment on above: Performed By: #### 5 8410-2 #### LINSEY Cuevas ([id number]) [facility] ([facility]) [id number] [place] [address]30 CO2 [Moles/Vol] 27 mmol/L Normal 21-32 [facility] Comment on above: Performed By: #### 5 8410-2 #### LINSEY Cuevas ([id number]) [facility] ([facility] [address] [place] [address] 02258 Creatinine [Mass/Vol] 0.36 mg/dL Low 0.50-1.05 [facility] Comment on above: Performed By: #### 5 8410-2 #### LINSEY Cuevas ([id number]) [facility] ([facility]) [address] [place] [address] Creatinine [Mass/Vol] 0.37 mg/dL Low 0.50-1.05 [facility] Comment on above: Performed By: #### 5 8410-2 #### LINSEY Cuevas ([id number]) [facility] ([facility]) [address] [place] [address] GFR/1.73 sq M.predicted MDRD (S/P/Bld) [Vol rate/Area] mL/min/{1.73_m2} Normal >60 [facility] Comment on above: Result Comment: Calc ulations of estimated GFR are performed using the 2020 CKD-EPI Study Refit equation without the race variable for the IDMS-Traceable creatinine methods. https://jasn.asnjournals.org/content/early/ASN.41187 24691 Performed By: #### 5 8410-2 #### LINSEY Cuevas ([id number]) [facility] ([facility]) [address] [place] [address] Glucose [Mass/Vol] 97 mg/dL Normal 74-99 [facility] Comment on above: Performed By: #### 5 8410-2 #### LINSEY Cuevas ([id number]) [facility] ([facility]) [address] [place] [address] Glucose [Mass/Vol] 98 mg/dL Normal 74-99 [facility] Comment on above: Performed By: #### 5 8410-2 #### LINSEY ESCOBAR L ([id number]) [facility] ([facility]) [address] [place] [address] Potassium [Moles/Vol] 3.9 mmol/L Normal 3.5-5.3 [facility] Comment on above: Performed By: #### 5 8410-2 #### LINSEY ESCOBAR L ([id number]) [facility] ([facility]) [address] [place] [address] Potassium [Moles/Vol] 4.0 mmol/L Normal 3.5-5.3 [facility] Comment on above: Performed By: #### 5 8410-2 #### LINSEY Cuevas ([id number]) [facility] ([facility]) [address] [place] [address] 55462 Sodium [Moles/Vol] 132 mmol/L Low 136-145 [facility] Comment on above: Performed By: #### 5 8410-2 #### LINSEY Cuevas ([id number]) [facility] ([facility]) [id number] [place] [address] 32442 Sodium [Moles/Vol] 133 mmol/L Low 136-145 [facility] Comment on above: Performed By: #### 5 8410-2 #### LINSEY Cuevas ([id number]) [facility] ([facility]) [address] [place] [address] 41385 Urea nitrogen [Mass/Vol] 6 mg/dL Normal 6-23 [facility] Comment on above: Performed By: #### 5 8410-2 #### LINSEY Cuevas ([id number]) [facility] ([facility]) [address] [place] [address] 57335 Urea nitrogen [Mass/Vol] 7 mg/dL Normal 6-23 [facility] Comment on above: Performed By: #### 5 8410-2 #### LINSEY Cuevas ([id number]) [facility] ([facility]) [address] [place] [address] 57416 CBC W Auto Differential pane l (Bld)on 10-01-2024 Basophils (Bld) [#/Vol] 0.02 10*3/uL [facility] Basophils/100 WBC (Bld) 0.2 % 0.0 - 2.0 % [facility] Eosinophils (Bld) [#/Vol] 0.02 10*3/uL [facility] Eosinophils/100 WBC (Bld) 0.2 % 0.0 - 6.0 % [facility] Erythrocyte distribution width (RBC) [Ratio] 13.8 % 11.5 - 14.5 % [facility] Hematocrit (Bld) [Volume fraction] 31.8 % Low 36.0 - 46.0 % [facility] Hemoglobin (Bld) [Mass/Vol] 9.5 g/dL Low 12.0 - 16.0 g/dL [facility] Immature granulocytes (Bld) [#/Vol] 0.13 10*3/uL [facility] Immature granulocytes/100 WBC (Bld) 1.4 % High 0.0 - 0.9 % [facility] Comment on above: Immature Granulocyte Count (IG) includes promyelocytes, myelocytes and metamyelocytes but does not include bands. Percent differential counts (%) should be interpreted in the context of the absolute cell counts (cells/UL). Interpretation and review of laboratory results Abnormal [facility] Lymphocytes (Bld) [#/Vol] 2.11 10*3/uL [facility] Lymphocytes/100 WBC (Bld) 23.4 % 13.0 - 44.0 % [facility] MCH (RBC) [Entitic mass] 24.4 pg Low 26.0 - 34.0 pg [facility] MCHC (RBC) [Mass/Vol] 29.9 g/dL Low 32.0 - 36.0 g/dL [facility] MCV (RBC) [Entitic vol] 82 fL 80 - 100 fL [facility] Monocytes (Bld) [#/Vol] 0.85 10*3/uL [facility] Monocytes/100 WBC (Bld) 9.4 % 2.0 - 10.0 % [facility] Neutrophils (Bld) [#/Vol] 5.87 10*3/uL [facility] Comment on above: Percent differential counts (%) should be interpreted in the context of the absolute cell counts (cells/uL). Neutrophils/100 WBC (Bld) 65.4 % 40.0 - 80.0 % [facility] Nucleated RBC/100 WBC (Bld) [Ratio] 0 % [facility] Platelets (Bld) [#/Vol] 366 10*3/uL [facility] RBC (Bld) [#/Vol] 3.89 10*6/uL Low [facility] WBC (Bld) [#/Vol] 9 10*3/uL [facility] Basophils (Bld) [#/Vol] 0.02 x10*3/uL Normal 0.00-0.10 [facility] Comment on above: Performed By: #### 5 8410-2 #### LINSEY ESCOBAR L ([id number]) [facility] ([facility]) [address] [place] [address] 88771 Basophils/100 WBC (Bld) 0.2 % Normal 0.0-2.0 [facility] Comment on above: Performed By: #### 5 8410-2 #### LINSEY ESCOBAR L ([id number]) [facility] ([facility]) [address] [place] [address] 34683 Eosinophils (Bld) [#/Vol] 0.02 x10*3/uL Normal 0.00-0.70 [facility] Comment on above: Performed By: #### 5 8410-2 #### LINSEY ESCOBAR L ([id number]) [facility] ([facility]) [address] [place] [address] 89339 Eosinophils/100 WBC (Bld) 0.2 % Normal 0.0-6.0 [facility] Comment on above: Performed By: #### 5 8410-2 #### LINSEY ESCOBAR L (47034) [facility] ([facility]) [address] [place] [address] 70415 Erythrocyte distribution width (RBC) [Ratio] 13.8 % Normal 11.5-14.5 [facility] Comment on above: Performed By: #### 5 8410-2 #### LINSEY ESCOBAR L ([id number]) [facility] ([facility]) [address] [place] [address] 60345 Hematocrit (Bld) [Volume fraction] 31.8 % Low 36.0-46.0 [facility] Comment on above: Performed By: #### 5 8410-2 #### LINSEY ESCOBAR L ([id number]) [facility] ([facility]) [address] [place] [address] Hemoglobin (Bld) [Mass/Vol] 9.5 g/dL Low 12.0-16.0 [facility] Comment on above: Performed By: #### 5 8410-2 #### LINSEY Cuevas ([id number]) [facility] ([facility]) [id number] [place] [address] 71922 Immature granulocytes (Bld) [#/Vol] 0.13 x10*3/uL Normal 0.00-0.70 [facility] Comment on above: Performed By: #### 5 8410-2 #### LINSEY Cuevas ([id number]) [facility] ([facility]) [address] [place] [address] 42219 Immature granulocytes/100 WBC (Bld) 1.4 % High 0.0-0.9 [facility] Comment on above: Result Comment: Kiah ture Granulocyte Count (IG) includes promyelocytes, myelocytes and metamyelocytes but does not include bands. Percent differential counts (%) should be interpreted in the context of the absolute cell counts (cells/UL). Performed By: #### 5 8410-2 #### LINSEY Cuevas ([id number]) [facility] ([facility]) [address] [place] [address] 61505 Lymphocytes (Bld) [#/Vol] 2.11 x10*3/uL Normal 1.20-4.80 [facility] Comment on above: Performed By: #### 5 8410-2 #### LINSEY Cuevas (64981) [facility] ([facility]) [address] [place] [address] 57351 Lymphocytes/100 WBC (Bld) 23.4 % Normal 13.0-44.0 [facility] Comment on above: Performed By: #### 5 8410-2 #### LINSEY Cuevas ([id number]) [facility] ([facility]) [address] [place] [address] MCH (RBC) [Entitic mass] 24.4 pg Low 26.0-34.0 [facility] Comment on above: Performed By: #### 5 8410-2 #### LINSEY Cuevas ([id number]) [facility] ([facility]) [address] [place] [address] MCHC (RBC) [Mass/Vol] 29.9 g/dL Low 32.0-36.0 [facility] Comment on above: Performed By: #### 5 8410-2 #### LINSEY ESCOBAR L ([id number]) [facility] ([facility]) [id number] [place] [address] 30301 MCV (RBC) [Entitic vol] 82 fL Normal 80-100 [facility] Comment on above: Performed By: #### 5 8410-2 #### LINSEY Cuevas ([id number]) [facility] ([facility]) [address] [place] [address] 62197 Monocytes (Bld) [#/Vol] 0.85 x10*3/uL Normal 0.10-1.00 [facility] Comment on above: Performed By: #### 5 8410-2 #### LINSEY Cuevas ([id number]) [facility] ([facility]) [address] [place] [address] 95678 Monocytes/100 WBC (Bld) 9.4 % Normal 2.0-10.0 [facility] Comment on above: Performed By: #### 5 8410-2 #### LINSEY Cuevas (65999) [facility] ([facility]) [address] [place] [address] 27769 Neutrophils (Bld) [#/Vol] 5.87 x10*3/uL Normal 1.20-7.70 [facility] Comment on above: Result Comment: Perc ent differential counts (%) should be interpreted in the context of the absolute cell counts (cells/uL). Performed By: #### 5 8410-2 #### LINSEY ESCOBAR L ([id number]) [facility] ([facility]) [address] [place] [address] Neutrophils/100 WBC (Bld) 65.4 % Normal 40.0-80.0 [facility] Comment on above: Performed By: #### 5 8410-2 #### LINSEY Cuevas (22872) [facility] ([facility] [address] [place] [address] 92467 Nucleated RBC/100 WBC (Bld) [Ratio] 0.0 /100 WBCs Normal 0.0-0.0 [facility] Comment on above: Performed By: #### 5 8410-2 #### LINSEY Cuevas (16609) [facility] ([facility] [address] [place] [address] 70521 Platelets (Bld) [#/Vol] 366 x10*3/uL Normal 150-450 [facility] Comment on above: Performed By: #### 5 8410-2 #### LINSEY Cuevas ([id number]) [facility] ([facility] [address] [place] [address] 45917 RBC (Bld) [#/Vol] 3.89 x10*6/uL Low 4.00-5.20 [facility] Comment on above: Performed By: #### 5 8410-2 #### LINSEY Cuevas (23997) [facility] ([facility] [address] [place] [address] 12121 WBC (Bld) [#/Vol] 9.0 x10*3/uL Normal 4.4-11.3 [facility] Comment on above: Performed By: #### 5 8410-2 #### LINSEY Cuevas ([id number]) [facility] ([facility]) [address] [place] [address] 84339 Magnesiumon 10-01-2024 Magnesium [Mass/Vol] 1.8 mg/dL 1.60 - 2.40 mg/dL [facility] Magnesium [Mass/Vol] 1.80 mg/dL Normal 1.60-2.40 [facility] Comment on above: Performed By: #### 5 8410-2 #### LINSEY Cuevas (85376) [facility] ([facility]) [address] [place] [address] 86670 Magnesium [Mass/Vol]on 10-01 Interpretation and review of laboratory results Normal [facility] No Panel Informationon 10-01 [facility] Basic metabolic 2000 panelon 09-30-2024 Anion gap [Moles/Vol] 13 mmol/L 10 - 2 0 mmol/L [facility] Calcium [Mass/Vol] 9 mg/dL 8.6 - 10. 6 mg/dL [facility] Chloride [Moles/Vol] 101 mmol/L 98 - 10 7 mmol/L [facility] CO2 [Moles/Vol] 26 mmol/L 21 - 32 mmol/L [facility] Creatinine [Mass/Vol] 0.42 mg/dL Low 0.50 - 1.05 mg/dL [facility] eGFR - PINF [facility] Comment on above: Calculations of lazarus mated GFR are performed using the 2020 CKD-EPI Study Refit equation without the race variable for the IDMS-Traceable creatinine methods. https://jasn.asnjournals.org/content/early//ASN.24231 79834 Glucose [Mass/Vol] 116 mg/dL High 74 - 99 mg/dL [facility] Interpretation and review of laboratory results Abnormal [facility] Potassium [Moles/Vol] 4.1 mmol/L 3.5 - 5.3 mmol/L [facility] Sodium [Moles/Vol] 136 mmol/L 136 - 145 mmol/L [facility] Urea nitrogen [Mass/Vol] 5 mg/dL Low 6 - 23 mg/dL [facility] Anion gap [Moles/Vol] 13 mmol/L Normal 10-20 [facility] Comment on above: Performed By: #### 5 8410-2 #### LINSEY Cuevas ([id number]) [facility] ([facility]) [address] [place] [address] Calcium [Mass/Vol] 9.0 mg/dL Normal 8.6-10.6 [facility] Comment on above: Performed By: #### 5 8410-2 #### LINSEY Cuevas (47924) [facility] ([facility]) [address] [place] [address] Chloride [Moles/Vol] 101 mmol/L Normal 98-107 [facility] Comment on above: Performed By: #### 5 8410-2 #### LINSEY ESCOBAR L ([id number]) [facility] ([facility] [address] [place] [address] CO2 [Moles/Vol] 26 mmol/L Normal 21-32 [facility] Comment on above: Performed By: #### 5 8410-2 #### LINSEY Cuevas (64875) [facility] ([facility] [address] [place] [address] Creatinine [Mass/Vol] 0.42 mg/dL Low 0.50-1.05 [facility] Comment on above: Performed By: #### 5 8410-2 #### LINSEY Cuevas ([id number]) [facility] ([facility] [address] [place] [address] GFR/1.73 sq M.predicted MDRD (S/P/Bld) [Vol rate/Area] mL/min/{1.73_m2} Normal >60 [facility] Comment on above: Result Comment: Calc ulations of estimated GFR are performed using the 2020 CKD-EPI Study Refit equation without the race variable for the IDMS-Traceable creatinine methods. https://jasn.asnjournals.org/content//ASN.35839 13963 Performed By: #### 5 8410-2 #### LINSEY Cuevas ([id number]) [facility] ([facility] [address] [place] [address] Glucose [Mass/Vol] 116 mg/dL High 74-99 [facility] Comment on above: Performed By: #### 5 8410-2 #### LINSEY Cuevas ([id number]) [facility] ([facility] [address] [place] [address] Potassium [Moles/Vol] 4.1 mmol/L Normal 3.5-5.3 [facility] Comment on above: Performed By: #### 5 8410-2 #### LINSEY Cuevas ([id number]) [facility] ([facility] [id number] [place] [address] 84653 Sodium [Moles/Vol] 136 mmol/L Normal 136-145 [facility] Comment on above: Performed By: #### 5 8410-2 #### LINSEY Cuevas (67959) [facility] ([facility] [id number] [place] [address] 08045 Urea nitrogen [Mass/Vol] 5 mg/dL Low 6-23 [facility] Comment on above: Performed By: #### 5 8410-2 #### LINSEY Cuevas ([id number]) [facility] ([facility]) [id number] [place] [address] 77756 C reactive proteinon 025 CRP [Mass/Vol] 8.59 mg/dL High <1.00 [facility] Comment on above: Performed By: #### 5 8410-2 #### LINSEY Cuevas ([id number]) [facility] ([facility] [address] [place] [address] 99113 C-Reactive Proteinon 025 CRP [Mass/Vol] 8.59 mg/dL High NINF - 1.00 mg/dL [facility] CBC W Auto Differential pane l (Bld)on 09-30-2024 Basophils (Bld) [#/Vol] 0.02 10*3/uL [facility] Basophils/100 WBC (Bld) 0.2 % 0.0 - 2.0 % [facility] Eosinophils (Bld) [#/Vol] 0.01 10*3/uL [facility] Eosinophils/100 WBC (Bld) 0.1 % 0.0 - 6.0 % [facility] Erythrocyte distribution width (RBC) [Ratio] 13.6 % 11.5 - 14.5 % [facility] Hematocrit (Bld) [Volume fraction] 31.5 % Low 36.0 - 46.0 % [facility] Hemoglobin (Bld) [Mass/Vol] 9.6 g/dL Low 12.0 - 16.0 g/dL [facility] Immature granulocytes (Bld) [#/Vol] 0.14 10*3/uL [facility] Immature granulocytes/100 WBC (Bld) 1.6 % High 0.0 - 0.9 % [facility] Comment on above: Immature Granulocyte Count (IG) includes promyelocytes, myelocytes and metamyelocytes but does not include bands. Percent differential counts (%) should be interpreted in the context of the absolute cell counts (cells/UL). Interpretation and review of laboratory results Abnormal [facility] Lymphocytes (Bld) [#/Vol] 2.09 10*3/uL [facility] Lymphocytes/100 WBC (Bld) 24.2 % 13.0 - 44.0 % [facility] MCH (RBC) [Entitic mass] 24.6 pg Low 26.0 - 34.0 pg [facility] MCHC (RBC) [Mass/Vol] 30.5 g/dL Low 32.0 - 36.0 g/dL [facility] MCV (RBC) [Entitic vol] 81 fL 80 - 100 fL [facility] Monocytes (Bld) [#/Vol] 0.73 10*3/uL [facility] Monocytes/100 WBC (Bld) 8.4 % 2.0 - 10.0 % [facility] Neutrophils (Bld) [#/Vol] 5.66 10*3/uL [facility] Comment on above: Percent differential counts (%) should be interpreted in the context of the absolute cell counts (cells/uL). Neutrophils/100 WBC (Bld) 65.5 % 40.0 - 80.0 % [facility] Nucleated RBC/100 WBC (Bld) [Ratio] 0 % [facility] Platelets (Bld) [#/Vol] 360 10*3/uL [facility] RBC (Bld) [#/Vol] 3.9 10*6/uL Low [facility] WBC (Bld) [#/Vol] 8.7 10*3/uL [facility] Basophils (Bld) [#/Vol] 0.02 x10*3/uL Normal 0.00-0.10 [facility] Comment on above: Performed By: #### V ERAB #### LINSEY Cuevas ([id number]) [facility] ([facility]) [address] [place] [address] Basophils/100 WBC (Bld) 0.2 % Normal 0.0-2.0 [facility] Comment on above: Performed By: #### V ERAB #### LINSEY Cuevas ([id number]) [facility] ([facility]) [address] [place] [address] Eosinophils (Bld) [#/Vol] 0.01 x10*3/uL Normal 0.00-0.70 [facility] Comment on above: Performed By: #### V ERAB #### LINSEY Cuevas ([id number]) [facility] ([facility]) [address] [place] [address] Eosinophils/100 WBC (Bld) 0.1 % Normal 0.0-6.0 [facility] Comment on above: Performed By: #### Chrystal ERAB #### LINSEY Cuevas ([id number]) [facility] ([facility]) [address] [place] [address] Erythrocyte distribution width (RBC) [Ratio] 13.6 % Normal 11.5-14.5 [facility] Comment on above: Performed By: #### V ERAB #### LINSEY Cuevas ([id number]) [facility] ([facility]) [address] [place] [address] Hematocrit (Bld) [Volume fraction] 31.5 % Low 36.0-46.0 [facility] Comment on above: Performed By: #### V ERAB #### LINSEY Cuevas ([id number]) [facility] ([facility]) [address] [place] [address] Hemoglobin (Bld) [Mass/Vol] 9.6 g/dL Low 12.0-16.0 [facility] Comment on above: Performed By: #### V ERAB #### LINSEY Cuevas ([id number]) [facility] ([facility]) [address] [place] [address] Immature granulocytes (Bld) [#/Vol] 0.14 x10*3/uL Normal 0.00-0.70 [facility] Comment on above: Performed By: #### V ERAB #### LINSEY Cuevas ([id number]) [facility] ([facility]) [address] [place] [address] Immature granulocytes/100 WBC (Bld) 1.6 % High 0.0-0.9 [facility] Comment on above: Result Comment: Kiah ture Granulocyte Count (IG) includes promyelocytes, myelocytes and metamyelocytes but does not include bands. Percent differential counts (%) should be interpreted in the context of the absolute cell counts (cells/UL). Performed By: #### V ERAB #### LINSEY Cuevas ([id number]) [facility] ([facility]) [address] [place] [address] Lymphocytes (Bld) [#/Vol] 2.09 x10*3/uL Normal 1.20-4.80 [facility] Comment on above: Performed By: #### V ERAB #### LINSEY Cuevas ([id number]) [facility] ([facility]) [address] [place] [address] Lymphocytes/100 WBC (Bld) 24.2 % Normal 13.0-44.0 [facility] Comment on above: Performed By: #### V ERAB #### LINSEY Cuevas ([id number]) [facility] ([facility]) [address] [place] [address] MCH (RBC) [Entitic mass] 24.6 pg Low 26.0-34.0 [facility] Comment on above: Performed By: #### V ERAB #### LINSEY Cuevas ([id number]) [facility] ([facility]) [address] [place] [address] MCHC (RBC) [Mass/Vol] 30.5 g/dL Low 32.0-36.0 [facility] Comment on above: Performed By: #### V ERAB #### LINSEY Cuevas ([id number]) [facility] ([facility]) [address] [place] [address] MCV (RBC) [Entitic vol] 81 fL Normal 80-100 [facility] Comment on above: Performed By: #### V ERAB #### LINSEY Cuevas ([id number]) [facility] [facility]) [address] [place] [address] Monocytes (Bld) [#/Vol] 0.73 x10*3/uL Normal 0.10-1.00 [facility] Comment on above: Performed By: #### V ERAB #### LINSEY Cuevas ([id number]) [facility] ([facility]) [address] [place] [address] Monocytes/100 WBC (Bld) 8.4 % Normal 2.0-10.0 [facility] Comment on above: Performed By: #### V ERAB #### LINSEY Cuevas ([id number]) [facility] ([facility]) [address] [place] [address] Neutrophils (Bld) [#/Vol] 5.66 x10*3/uL Normal 1.20-7.70 [facility] Comment on above: Result Comment: Perc ent differential counts (%) should be interpreted in the context of the absolute cell counts (cells/uL). Performed By: #### V ERAB #### LINSEY Cuevas ([id number]) [facility] ([facility]) [address] [place] [address] Neutrophils/100 WBC (Bld) 65.5 % Normal 40.0-80.0 [facility] Comment on above: Performed By: #### V ERAB #### LINSEY Cuevas ([id number]) [facility] ([facility]) [address] [place] [address] Nucleated RBC/100 WBC (Bld) [Ratio] 0.0 /100 WBCs Normal 0.0-0.0 [facility] Comment on above: Performed By: #### V ERAB #### LINSEY Cuevas ([id number]) [facility] ([facility]) [address] [place] [address] Platelets (Bld) [#/Vol] 360 x10*3/uL Normal 150-450 [facility] Comment on above: Performed By: #### V ERAB #### LINSEY Cuevas ([id number]) [facility] ([facility]) [address] [place] [address] RBC (Bld) [#/Vol] 3.90 x10*6/uL Low 4.00-5.20 [facility] Comment on above: Performed By: #### V ERAB #### LINSEY Cuevas ([id number]) [facility] ([facility]) [address] [place] [address] WBC (Bld) [#/Vol] 8.7 x10*3/uL Normal 4.4-11.3 [facility] Comment on above: Performed By: #### V ERAB #### LINSEY Cuevas ([id number]) [facility] ([facility]) [address] [place] [address] CRP [Mass/Vol]on 09-30-2024 Interpretation and review of laboratory results Abnormal [facility] Calprotectin (Stl) [Mass/Mas s]on 09-30-2024 Interpretation and review of laboratory results Abnormal [facility] Calprotectin Stoolon 025 Calprotectin (Stl) [Mass/Mass] >3000 High NINF - 49 ug/g [facility] Comment on above: REFERENCE INTERVAL: Calprotectin, Fecal by Immunoassay Less than 50 ug/g........Normal 50-120 ug/g..............Borderline elevated, test should be re-evaluated in 4-6 weeks. 121 ug/g or greater......Elevated Performed By: [facility] [address] [place] [address] Supervisor Soldering: Jaylon Owusu MD, PhD KATHIIA Number: [id number] Magnesiumon 09-30-2024 Magnesium [Mass/Vol] 1.97 mg/dL 1.60 - 2.40 mg/dL [facility] Magnesium [Mass/Vol] 1.97 mg/dL Normal 1.60-2.40 [facility] Comment on above: Performed By: #### V ERAB #### LINSEY Cuevas ([id number]) [facility] ([facility]) [address] [place] [address] Magnesium [Mass/Vol]on 09-30 Interpretation and review of laboratory results Normal [facility] No Panel Informationon 09-30 [facility] Basic metabolic 2000 panelon 09-29-2024 Anion gap [Moles/Vol] 12 mmol/L 10 - 2 0 mmol/L [facility] Calcium [Mass/Vol] 9.1 mg/dL 8.6 - 10. 6 mg/dL [facility] Chloride [Moles/Vol] 99 mmol/L 98 - 10 7 mmol/L [facility] CO2 [Moles/Vol] 27 mmol/L 21 - 32 mmol/L [facility] Creatinine [Mass/Vol] 0.38 mg/dL Low 0.50 - 1.05 mg/dL [facility] eGFR - PINF [facility] Comment on above: Calculations of lazarus mated GFR are performed using the 2020 CKD-EPI Study Refit equation without the race variable for the IDMS-Traceable creatinine methods. https://jasn.asnjournals.org/content///ASN.75106 66239 Glucose [Mass/Vol] 121 mg/dL High 74 - 99 mg/dL [facility] Interpretation and review of laboratory results Abnormal [facility] Potassium [Moles/Vol] 3.9 mmol/L 3.5 - 5.3 mmol/L [facility] Sodium [Moles/Vol] 134 mmol/L Low 136 - 145 mmol/L [facility] Urea nitrogen [Mass/Vol] 6 mg/dL 6 - 23 mg/dL [facility] Anion gap [Moles/Vol] 12 mmol/L Normal 10-20 [facility] Comment on above: Performed By: #### V ERAB #### LINSEY Cuevas ([id number]) [facility] ([facility]) [address] [place] [address] Calcium [Mass/Vol] 9.1 mg/dL Normal 8.6-10.6 [facility] Comment on above: Performed By: #### V ERAB #### LINSEY Cuevas ([id number]) [facility] ([facility]) [address] [place] [address] Chloride [Moles/Vol] 99 mmol/L Normal 98-107 [facility] Comment on above: Performed By: #### V ERAB #### LINSEY Cuevas ([id number]) [facility] ([facility]) [address] [place] [address] CO2 [Moles/Vol] 27 mmol/L Normal 21-32 [facility] Comment on above: Performed By: #### V ERAB #### LINSEY Cuevas ([id number]) [facility] ([facility]) [address] [place] [address] Creatinine [Mass/Vol] 0.38 mg/dL Low 0.50-1.05 [facility] Comment on above: Performed By: #### V ERAB #### LINSEY Cuevas ([id number]) [facility] ([facility]) [address] [place] [address] GFR/1.73 sq M.predicted MDRD (S/P/Bld) [Vol rate/Area] mL/min/{1.73_m2} Normal >60 [facility] Comment on above: Result Comment: Calc ulations of estimated GFR are performed using the 2020 CKD-EPI Study Refit equation without the race variable for the IDMS-Traceable creatinine methods. https://jasn.asnjournals.org/content//ASN.76015 78633 Performed By: #### V ERAB #### ILNSEY Cuevas ([id number]) [facility] ([facility]) [address] [place] [address] Glucose [Mass/Vol] 121 mg/dL High 74-99 [facility] Comment on above: Performed By: #### V ERAB #### LINSEY Cuevas ([id number]) [facility] ([facility]) [address] [place] [address] Potassium [Moles/Vol] 3.9 mmol/L Normal 3.5-5.3 [facility] Comment on above: Performed By: #### V ERAB #### LINSEY Cuevas ([id number]) [facility] ([facility]) [address] [place] [address] Sodium [Moles/Vol] 134 mmol/L Low 136-145 [facility] Comment on above: Performed By: #### V ERAB #### LINSEY Cuevas ([id number]) [facility] ([facility]) [address] [place] [address] Urea nitrogen [Mass/Vol] 6 mg/dL Normal 6-23 [facility] Comment on above: Performed By: #### V ERAB #### LINSEY Cuevas ([id number]) [facility] ([facility]) [address] [place] [address] CBC W Auto Differential pane l (Bld)on 09-29-2024 Basophils (Bld) [#/Vol] 0.02 10*3/uL [facility] Basophils/100 WBC (Bld) 0.3 % 0.0 - 2.0 % [facility] Eosinophils (Bld) [#/Vol] 0 10*3/uL [facility] Eosinophils/100 WBC (Bld) 0 % 0.0 - 6.0 % [facility] Erythrocyte distribution width (RBC) [Ratio] 13.5 % 11.5 - 14.5 % [facility] Hematocrit (Bld) [Volume fraction] 30.9 % Low 36.0 - 46.0 % [facility] Hemoglobin (Bld) [Mass/Vol] 9.5 g/dL Low 12.0 - 16.0 g/dL [facility] Immature granulocytes (Bld) [#/Vol] 0.1 10*3/uL [facility] Immature granulocytes/100 WBC (Bld) 1.3 % High 0.0 - 0.9 % [facility] Comment on above: Immature Granulocyte Count (IG) includes promyelocytes, myelocytes and metamyelocytes but does not include bands. Percent differential counts (%) should be interpreted in the context of the absolute cell counts (cells/UL). Interpretation and review of laboratory results Abnormal [facility] Lymphocytes (Bld) [#/Vol] 1.68 10*3/uL [facility] Lymphocytes/100 WBC (Bld) 21.3 % 13.0 - 44.0 % [facility] MCH (RBC) [Entitic mass] 24.4 pg Low 26.0 - 34.0 pg [facility] MCHC (RBC) [Mass/Vol] 30.7 g/dL Low 32.0 - 36.0 g/dL [facility] MCV (RBC) [Entitic vol] 79 fL Low 80 - 100 fL [facility] Monocytes (Bld) [#/Vol] 0.51 10*3/uL [facility] Monocytes/100 WBC (Bld) 6.5 % 2.0 - 10.0 % [facility] Neutrophils (Bld) [#/Vol] 5.58 10*3/uL [facility] Comment on above: Percent differential counts (%) should be interpreted in the context of the absolute cell counts (cells/uL). Neutrophils/100 WBC (Bld) 70.6 % 40.0 - 80.0 % [facility] Nucleated RBC/100 WBC (Bld) [Ratio] 0 % [facility] Platelets (Bld) [#/Vol] 354 10*3/uL [facility] RBC (Bld) [#/Vol] 3.89 10*6/uL [facility] [#/Vol] 7.9 10*3/uL [facility] Basophils (Bld) [#/Vol] 0.02 x10*3/uL Normal 0.00-0.10 [facility] Comment on above: Performed By: #### V ERAB #### LINSEY Cuevas ([id number]) [facility] ([facility]) [address] [place] [address] Basophils/100 WBC (Bld) 0.3 % Normal 0.0-2.0 [facility] Comment on above: Performed By: #### V ERAB #### LINSEY Cuevas ([id number]) [facility] ([facility]) [address] [place] [address] Eosinophils (Bld) [#/Vol] 0.00 x10*3/uL Normal 0.00-0.70 [facility] Comment on above: Performed By: #### V ERAB #### LINSEY Cuevas ([id number]) [facility] ([facility]) [address] [place] [address] Eosinophils/100 WBC (Bld) 0.0 % Normal 0.0-6.0 [facility] Comment on above: Performed By: #### V ERAB #### LINSEY Cuevas ([id number]) [facility] ([facility]) [address] [place] [address] Erythrocyte distribution width (RBC) [Ratio] 13.5 % Normal 11.5-14.5 [facility] Comment on above: Performed By: #### V ERAB #### LINSEY Cuevas ([id number]) [facility] ([facility]) [address] [place] [address] Hematocrit (Bld) [Volume fraction] 30.9 % Low 36.0-46.0 [facility] Comment on above: Performed By: #### V ERAB #### LINSEY Cuevas ([id number]) [facility] ([facility]) [address] [place] [address] Hemoglobin (Bld) [Mass/Vol] 9.5 g/dL Low 12.0-16.0 [facility] Comment on above: Performed By: #### V ERAB #### LINSEY Cuevas ([id number]) [facility] ([facility]) [address] [place] [address] Immature granulocytes (Bld) [#/Vol] 0.10 x10*3/uL Normal 0.00-0.70 [facility] Comment on above: Performed By: #### V ERAB #### LINSEY Cuevas ([id number]) [facility] ([facility]) [address] [place] [address] Immature granulocytes/100 WBC (Bld) 1.3 % High 0.0-0.9 [facility] Comment on above: Result Comment: Kiah ture Granulocyte Count (IG) includes promyelocytes, myelocytes and metamyelocytes but does not include bands. Percent differential counts (%) should be interpreted in the context of the absolute cell counts (cells/UL). Performed By: #### V ERAB #### LINSEY Cuevas ([id number]) [facility] ([facility]) [address] [place] [address] Lymphocytes (Bld) [#/Vol] 1.68 x10*3/uL Normal 1.20-4.80 [facility] Comment on above: Performed By: #### V ERAB #### LINSEY Cuevas ([id number]) [facility] ([facility]) [address] [place] [address] Lymphocytes/100 WBC (Bld) 21.3 % Normal 13.0-44.0 [facility] Comment on above: Performed By: #### V ERAB #### LINSEY Cuevas ([id number]) [facility] ([facility]) [address] [place] [address] MCH (RBC) [Entitic mass] 24.4 pg Low 26.0-34.0 [facility] Comment on above: Performed By: #### V ERAB #### LINSEY Cuevas ([id number]) [facility] ([facility]) [address] [place] [address] MCHC (RBC) [Mass/Vol] 30.7 g/dL Low 32.0-36.0 [facility] Comment on above: Performed By: #### V ERAB #### LINSEY Cuevas ([id number]) [facility] ([facility]) [address] [place] [address] MCV (RBC) [Entitic vol] 79 fL Low 80-100 [facility] Comment on above: Performed By: #### V ERAB #### LINSEY Cuevas ([id number]) [facility] ([facility]) [address] [place] [address] Monocytes (Bld) [#/Vol] 0.51 x10*3/uL Normal 0.10-1.00 [facility] Comment on above: Performed By: #### V ERAB #### LINSEY Cuevas ([id number]) [facility] ([facility]) [address] [place] [address] Monocytes/100 WBC (Bld) 6.5 % Normal 2.0-10.0 [facility] Comment on above: Performed By: #### V ERAB #### LINSEY Cuevas ([id number]) [facility] ([facility]) [address] [place] [address] Neutrophils (Bld) [#/Vol] 5.58 x10*3/uL Normal 1.20-7.70 [facility] Comment on above: Result Comment: Perc ent differential counts (%) should be interpreted in the context of the absolute cell counts (cells/uL). Performed By: #### V ERAB #### LINSEY Cuevas ([id number]) [facility] ([facility]) [address] [place] [address] Neutrophils/100 WBC (Bld) 70.6 % Normal 40.0-80.0 [facility] Comment on above: Performed By: #### V ERAB #### LINSEY Cuevas ([id number]) [facility] ([facility]) [address] [place] [address] Nucleated RBC/100 WBC (Bld) [Ratio] 0.0 /100 WBCs Normal 0.0-0.0 [facility] Comment on above: Performed By: #### V ERAB #### LINSEY Cuevas ([id number]) [facility] ([facility]) [address] [place] [address] Platelets (Bld) [#/Vol] 354 x10*3/uL Normal 150-450 [facility] Comment on above: Performed By: #### V ERAB #### LINSEY Cuevas ([id number]) [facility] ([facility]) [address] [place] [address] RBC (Bld) [#/Vol] 3.89 x10*6/uL Low 4.00-5.20 [facility] Comment on above: Performed By: #### V ERAB #### LINSEY Cuevas ([id number]) [facility] ([facility]) [address] [place] [address] WBC (Bld) [#/Vol] 7.9 x10*3/uL Normal 4.4-11.3 [facility] Comment on above: Performed By: #### V ERAB #### LINSEY Cuevas ([id number]) [facility] ([facility]) [address] [place] [address] Magnesiumon 09-29-2024 Magnesium [Mass/Vol] 1.89 mg/dL 1.60 - 2.40 mg/dL [facility] Magnesium [Mass/Vol] 1.89 mg/dL Normal 1.60-2.40 [facility] Comment on above: Performed By: #### V ERAB #### LINSEY Cuevas ([id number]) [facility] ([facility]) [address] [place] [address] Magnesium [Mass/Vol]on 09-29 Interpretation and review of laboratory results Normal [facility] No Panel Informationon 09-29 [facility] Basic metabolic 2000 panelon 09-28-2024 Anion gap [Moles/Vol] 15 mmol/L 10 - 2 0 mmol/L [facility] Calcium [Mass/Vol] 9.3 mg/dL 8.6 - 10. 6 mg/dL [facility] Chloride [Moles/Vol] 100 mmol/L 98 - 10 7 mmol/L [facility] CO2 [Moles/Vol] 25 mmol/L 21 - 32 mmol/L [facility] Creatinine [Mass/Vol] 0.48 mg/dL Low 0.50 - 1.05 mg/dL [facility] eGFR - PINF [facility] Comment on above: Calculations of lazarus mated GFR are performed using the 2020 CKD-EPI Study Refit equation without the race variable for the IDMS-Traceable creatinine methods. https://jasn.asnjournals.org/content//ASN.14610 12553 Glucose [Mass/Vol] 164 mg/dL High 74 - 99 mg/dL [facility] Interpretation and review of laboratory results Abnormal [facility] Potassium [Moles/Vol] 4.1 mmol/L 3.5 - 5.3 mmol/L [facility] Sodium [Moles/Vol] 136 mmol/L 136 - 145 mmol/L [facility] Urea nitrogen [Mass/Vol] 5 mg/dL Low 6 - 23 mg/dL [facility] Anion gap [Moles/Vol] 15 mmol/L Normal 10-20 [facility] Comment on above: Performed By: #### V ERAB #### LINSEY Cuevas ([id number]) [facility] ([facility]) [address] [place] [address] Calcium [Mass/Vol] 9.3 mg/dL Normal 8.6-10.6 [facility] Comment on above: Performed By: #### V ERAB #### LINSEY Cuevas ([id number]) [facility] ([facility]) [address] [place] [address] Chloride [Moles/Vol] 100 mmol/L Normal 98-107 [facility] Comment on above: Performed By: #### V ERAB #### LINSEY Cuevas ([id number]) [facility] ([facility]) [address] [place] [address] CO2 [Moles/Vol] 25 mmol/L Normal 21-32 [facility] Comment on above: Performed By: #### V ERAB #### LINSEY Cuevas ([id number]) [facility] ([facility]) [address] [place] [address] Creatinine [Mass/Vol] 0.48 mg/dL Low 0.50-1.05 [facility] Comment on above: Performed By: #### V ERAB #### LINSEY Cuevas ([id number]) [facility] ([facility]) [address] [place] [address] GFR/1.73 sq M.predicted MDRD (S/P/Bld) [Vol rate/Area] mL/min/{1.73_m2} Normal >60 [facility] Comment on above: Result Comment: Calc ulations of estimated GFR are performed using the 2020 CKD-EPI Study Refit equation without the race variable for the IDMS-Traceable creatinine methods. https://jasn.asnjournals.org/content/early//ASN.00962 50142 Performed By: #### V ERAB #### LINSEY Cuevas ([id number]) [facility] ([facility]) [address] [place] [address] Glucose [Mass/Vol] 164 mg/dL High 74-99 [facility] Comment on above: Performed By: #### V ERAB #### LINSEY Cuevas ([id number]) [facility] ([facility]) [address] [place] [address] Potassium [Moles/Vol] 4.1 mmol/L Normal 3.5-5.3 [facility] Comment on above: Performed By: #### V ERAB #### LINSEY Cuevas ([id number]) [facility] ([facility]) [address] [place] [address] Sodium [Moles/Vol] 136 mmol/L Normal 136-145 [facility] Comment on above: Performed By: #### V ERAB #### LINSEY Cuevas ([id number]) [facility] ([facility]) [address] [place] [address] Urea nitrogen [Mass/Vol] 5 mg/dL Low 6-23 [facility] Comment on above: Performed By: #### V ERAB #### LINSEY Cuevas ([id number]) [facility] ([facility]) [address] [place] [address] C. difficile toxin A+B tcdA+ tcdB genes DARREN+probe Ql (Stl)Ordered By: Christel Cruz on 09-28-2024 Interpretation and review of laboratory results Normal [facility] This test is an FDA-cleared real-time PCR assay for detection of toxigenic C. difficile DNA from unprocessed liquid or unformed stool specimens that have not undergone nucleic acid extraction in symptomatic patients with potential C. difficile infection (CDI). A positive result may indicate colonization, and clinical assessment is required for the diagnosis of CDI. This test cannot be performed on formed stools or used as a test of cure, and should not be performed more than once per 7 days. [facility] CBC W Auto Differential pane l (Bld)on 09-28-2024 Basophils (Bld) [#/Vol] 0.03 10*3/uL [facility] Basophils/100 WBC (Bld) 0.4 % 0.0 - 2.0 % [facility] Eosinophils (Bld) [#/Vol] 0 10*3/uL [facility] Eosinophils/100 WBC (Bld) 0 % 0.0 - 6.0 % [facility] Erythrocyte distribution width (RBC) [Ratio] 13.5 % 11.5 - 14.5 % [facility] Hematocrit (Bld) [Volume fraction] 31.4 % Low 36.0 - 46.0 % [facility] Hemoglobin (Bld) [Mass/Vol] 9.7 g/dL Low 12.0 - 16.0 g/dL [facility] Immature granulocytes (Bld) [#/Vol] 0.05 10*3/uL [facility] Immature granulocytes/100 WBC (Bld) 0.7 % 0.0 - 0.9 % [facility] Comment on above: Immature Granulocyte Count (IG) includes promyelocytes, myelocytes and metamyelocytes but does not include bands. Percent differential counts (%) should be interpreted in the context of the absolute cell counts (cells/UL). Interpretation and review of laboratory results Abnormal [facility] Lymphocytes (Bld) [#/Vol] 1.41 10*3/uL [facility] Lymphocytes/100 WBC (Bld) 19.2 % 13.0 - 44.0 % [facility] MCH (RBC) [Entitic mass] 24.5 pg Low 26.0 - 34.0 pg [facility] MCHC (RBC) [Mass/Vol] 30.9 g/dL Low 32.0 - 36.0 g/dL [facility] MCV (RBC) [Entitic vol] 79 fL Low 80 - 100 fL [facility] Monocytes (Bld) [#/Vol] 0.4 10*3/uL [facility] Monocytes/100 WBC (Bld) 5.4 % 2.0 - 10.0 % [facility] Neutrophils (Bld) [#/Vol] 5.47 10*3/uL [facility] Comment on above: Percent differential counts (%) should be interpreted in the context of the absolute cell counts (cells/uL). Neutrophils/100 WBC (Bld) 74.3 % 40.0 - 80.0 % [facility] Nucleated RBC/100 WBC (Bld) [Ratio] 0 % [facility] Platelets (Bld) [#/Vol] 323 10*3/uL [facility] RBC (Bld) [#/Vol] 3.96 10*6/uL Low [facility] WBC (Bld) [#/Vol] 7.4 10*3/uL [facility] Basophils (Bld) [#/Vol] 0.03 x10*3/uL Normal 0.00-0.10 [facility] Comment on above: Performed By: #### V ERAB #### LINSEY Cuevas ([id number]) [facility] ([facility]) [address] [place] [address] Basophils/100 WBC (Bld) 0.4 % Normal 0.0-2.0 [facility] Comment on above: Performed By: #### V ERAB #### LINSEY Cuevas ([id number]) [facility] ([facility]) [address] [place] [address] Eosinophils (Bld) [#/Vol] 0.00 x10*3/uL Normal 0.00-0.70 [facility] Comment on above: Performed By: #### V ERAB #### LINSEY Cuevas ([id number]) [facility] ([facility]) [address] [place] [address] Eosinophils/100 WBC (Bld) 0.0 % Normal 0.0-6.0 [facility] Comment on above: Performed By: #### V ERAB #### LINSEY Cuevas ([id number]) [facility] ([facility]) [address] [place] [address] Erythrocyte distribution width (RBC) [Ratio] 13.5 % Normal 11.5-14.5 [facility] Comment on above: Performed By: #### V ERAB #### LINSEY Cuevas ([id number]) [facility] ([facility]) [address] [place] [address] Hematocrit (Bld) [Volume fraction] 31.4 % Low 36.0-46.0 [facility] Comment on above: Performed By: #### V ERAB #### LINSEY Cuevas ([id number]) [facility] ([facility]) [address] [place] [address] Hemoglobin (Bld) [Mass/Vol] 9.7 g/dL Low 12.0-16.0 [facility] Comment on above: Performed By: #### V ERAB #### LINSEY Cuevas ([id number]) [facility] ([facility]) [address] [place] [address] Immature granulocytes (Bld) [#/Vol] 0.05 x10*3/uL Normal 0.00-0.70 [facility] Comment on above: Performed By: #### V ERAB #### LINSEY Cuevas ([id number]) [facility] ([facility]) [address] [place] [address] Immature granulocytes/100 WBC (Bld) 0.7 % Normal 0.0-0.9 [facility] Comment on above: Result Comment: Kiah ture Granulocyte Count (IG) includes promyelocytes, myelocytes and metamyelocytes but does not include bands. Percent differential counts (%) should be interpreted in the context of the absolute cell counts (cells/UL). Performed By: #### V ERAB #### LINSEY Cuevas ([id number]) [facility] ([facility]) [address] [place] [address] Lymphocytes (Bld) [#/Vol] 1.41 x10*3/uL Normal 1.20-4.80 [facility] Comment on above: Performed By: #### V ERAB #### LINSEY Cuevas ([id number]) [facility] ([facility]) [address] [place] [address] Lymphocytes/100 WBC (Bld) 19.2 % Normal 13.0-44.0 [facility] Comment on above: Performed By: #### V ERAB #### LINSEY Cuevas ([id number]) [facility] ([facility]) [address] [place] [address] MCH (RBC) [Entitic mass] 24.5 pg Low 26.0-34.0 [facility] Comment on above: Performed By: #### V ERAB #### LINSEY Cuevas ([id number]) [facility] ([facility]) [address] [place] [address] MCHC (RBC) [Mass/Vol] 30.9 g/dL Low 32.0-36.0 [facility] Comment on above: Performed By: #### V ERAB #### LINSEY Cuevas ([id number]) [facility] ([facility]) [address] [place] [address] MCV (RBC) [Entitic vol] 79 fL Low 80-100 [facility] Comment on above: Performed By: #### V ERAB #### LINSEY Cuevas ([id number]) [facility] ([facility]) [address] [place] [address] Monocytes (Bld) [#/Vol] 0.40 x10*3/uL Normal 0.10-1.00 [facility] Comment on above: Performed By: #### V ERAB #### LINSEY Cuevas ([id number]) [facility] ([facility]) [address] [place] [address] Monocytes/100 WBC (Bld) 5.4 % Normal 2.0-10.0 [facility] Comment on above: Performed By: #### V ERAB #### LINSEY Cuevas ([id number]) [facility] ([facility]) [address] [place] [address] Neutrophils (Bld) [#/Vol] 5.47 x10*3/uL Normal 1.20-7.70 [facility] Comment on above: Result Comment: Perc ent differential counts (%) should be interpreted in the context of the absolute cell counts (cells/uL). Performed By: #### V ERAB #### LINSEY Cuevas ([id number]) [facility] ([facility]) [address] [place] [address] Neutrophils/100 WBC (Bld) 74.3 % Normal 40.0-80.0 [facility] Comment on above: Performed By: #### V ERAB #### LINSEY Cuevas ([id number]) [facility] ([facility]) [address] [place] [address] Nucleated RBC/100 WBC (Bld) [Ratio] 0.0 /100 WBCs Normal 0.0-0.0 [facility] Comment on above: Performed By: #### V ERAB #### LINSEY ESCOBAR L ([id number]) [facility] ([facility]) [address] [place] [address] Platelets (Bld) [#/Vol] 323 x10*3/uL Normal 150-450 [facility] Comment on above: Performed By: #### V ERAB #### LINSEY Cuevas ([id number]) [facility] ([facility]) [address] [place] [address] RBC (Bld) [#/Vol] 3.96 x10*6/uL Low 4.00-5.20 [facility] Comment on above: Performed By: #### V ERAB #### LINSEY Cuevas ([id number]) [facility] ([facility]) [address] [place] [address] WBC (Bld) [#/Vol] 7.4 x10*3/uL Normal 4.4-11.3 [facility] Comment on above: Performed By: #### V ERAB #### LINSEY Cuevas ([id number]) [facility] ([facility]) [address] [place] [address] Gastrointestinal pathogens i dentified DARREN+probe Nom (Stl)Ordered By: Kenrick Wilhelm on 09-28-2024 Campylobacter Group Not detected Not Detected [facility] E. coli stx1 gene DARREN+probe Ql (Stl) Not detected Not Detected [facility] E. coli stx2 gene DARREN+probe Ql (Stl) Not detected Not Detected [facility] Interpretation and review of laboratory results Normal [facility] Norovirus genogroup I and II RNA DARREN+probe Nom (Stl) Not detected Not Detected [facility] Rotavirus RNA DARREN+probe Nom (Stl) Not detected Not Detected [facility] Salmonella species Not detected Not Detected [facility] Shigella sp DNA DARREN+probe Ql (Unsp spec) Not detected Not Detected [facility] Vibrio Group Not detected Not Detected [facility] Y. enterocolitica DNA DARREN+probe Ql (Stl) Not detected Not Detected [facility] Magnesiumon 09-28-2024 Magnesium [Mass/Vol] 2.01 mg/dL 1.60 - 2.40 mg/dL [facility] Magnesium [Mass/Vol] 2.01 mg/dL Normal 1.60-2.40 [facility] Comment on above: Performed By: #### V ERAJarrod #### LINSEY Cuevas ([id number]) [facility] [address] [place] [address] Magnesium [Mass/Vol]on 09-28 Interpretation and review of laboratory results Normal [facility] No Panel Informationon 09-28 [facility] US OB LIMITED 1+ FETUSESon 0 09-28-2024 OB LIMITED 1+ FETUSES Interpreted by: Derrell Tristan Indication ======== Confirm Gestational Age, Crohn's DIsease/ Ulcerative Colitis, Inpatient, [facility] 4 History ====== General History Height 160 cm Height (ft) 5 ft Height (in) 3 in Previous Outcomes 4 Para 2 Children born living ?37w 2 Pregnancies delivered at term (T) 2 Abortions (A) 1 Living children (L) 2 Miscarriages 1 Other: Previous Section Maternal Assessment Height 160 cm Height (ft) 5 ft Height (in) 3 in Weight 95 kg Weight (lb) 210 lb Weight gain 0 kg Weight gain (lb) 0 lb BMI 37.20 kg/m??? Physical Exam Initial weight (lb) 210 lb ========= Hubbard . Number of fetuses: 1 Dating ====== LMP on: 06/22/2024 Cycle: Very certain LMP, regular cycle GA by LMP 14 w + 0 d AKIRA by LMP: 03/29/2025 Ultrasound examination on: 09/28/2024 GA by U/S based upon: AC, BPD, Femur, HC GA by U/S 14 w + 3 d AKIRA by U/S: 03/26/2025 Assigned: based on the LMP, selected on 09/28/2024 Assigned GA 14 w + 0 d Assigned AKIRA: 03/29/2025 Growth Overview Exam date GA BPD (mm) HC (mm) AC (mm) FL (mm) HL (mm) EFW (g) 09/28/2024 14w 0d 26.9 74% 101.8 70% 79.5 69% 13.5 43% 15.9 83% 93 50% Impression ========= INPATIENT STUDY: Patient current admitted for a Crohn's flare. She has no aneuploidy screening. -Gestational age confirmed by biometry -The anatomic survey cannot be completely performed at this gestational age, however no gross abnormalities were suspected. A follow up exam is needed to perform an anatomic survey. See inpatient chart for full plan of care. General Evaluation Cardiac activity present. FHR 149 bpm. movements: visualized. Presentation: breech Placenta: Placental site: anterior Umbilical cord: Cord vessels: 3 vessel cord Amniotic fluid: Amount of AF: normal amount Biometry Standard BPD 26.9 mm 14w 5d 74% Hadlock OFD 35.7 mm 84% INTERGROWTH-21st HC 101.8 mm 14w 5d 70% Hadlock AC 79.5 mm 14w 2d 69% Hadlock Femur 13.5 mm 14w 0d 43% Hadlock Humerus 15.9 mm 83% Chitty HC / AC 1.28 83% Hadlock EFW 93 g 14w 0d 50% Hadlock EFW (lb) 0 lb EFW (oz) 3 oz EFW by: Hadlock ([id number]) Head / Face / Neck Cephalic index 0.75 7% Nicolaides Extremities / Bony Struc FL / BPD 0.50 6% Hadlock FL / HC 0.13 1% Hadlock FL / AC 0.17 9% Hadlock Other Structures CRL 85.0 mm -/- 54% Pexsters FHR 149 bpm Anatomy Arms: Both Upper Extremities Seen. Legs: Both Lower Extremities Seen. The following structures appear normal: Cranium. Thorax. Abdominal wall. GI tract. Urogenital tract. Maternal Structures Uterus / Cervix Uterus: Normal Ovaries / Tubes / Adnexa Rt ovary D1 30.4 mm Rt ovary D2 18.3 mm Rt ovary D3 14.4 mm Rt ovary Vol 4.2 cm??? Lt ovary D1 20.5 mm Lt ovary D2 13.6 mm Lt ovary D3 20.4 mm Lt ovary Vol 3.0 cm??? Normal [facility] US for pregnancyon Interpreted by: Derrell Tristan Indication ======== Confirm Gestational Age, Crohn's DIsease/ Ulcerative Colitis, Inpatient, [facility] 4 History ====== General History Height 160 cm Height (ft) 5 ft Height (in) 3 in Previous Outcomes 4 Para 2 Children born living ?37w 2 Pregnancies delivered at term (T) 2 Abortions (A) 1 Living children (L) 2 Miscarriages 1 Other: Previous Section Maternal Assessment Height 160 cm Height (ft) 5 ft Height (in) 3 in Weight 95 kg Weight (lb) 210 lb Weight gain 0 kg Weight gain (lb) 0 lb BMI 37.20 kg/m Physical Exam Initial weight (lb) 210 lb ========= Hubbard . Number of fetuses: 1 Dating ====== LMP on: 06/22/2024 Cycle: Very certain LMP, regular cycle GA by LMP 14 w + 0 d AKIRA by LMP: 03/29/2025 Ultrasound examination on: 09/28/2024 GA by U/S based upon: AC, BPD, Femur, HC GA by U/S 14 w + 3 d AKIRA by U/S: 03/26/2025 Assigned: based on the LMP, selected on 09/28/2024 Assigned GA 14 w + 0 d Assigned AKIRA: 03/29/2025 Growth Overview Exam date GA BPD (mm) HC (mm) AC (mm) FL (mm) HL (mm) EFW (g) 09/28/2024 14w 0d 26.9 74% 101.8 70% 79.5 69% 13.5 43% 15.9 83% 93 50% Impression ========= INPATIENT STUDY: Patient current admitted for a Crohn's flare. She has no aneuploidy screening. -Gestational age confirmed by biometry -The anatomic survey cannot be completely performed at this gestational age, however no gross abnormalities were suspected. A follow up exam is needed to perform an anatomic survey. See inpatient chart for full plan of care. General Evaluation Cardiac activity present. FHR 149 bpm. movements: visualized. Presentation: breech Placenta: Placental site: anterior Umbilical cord: Cord vessels: 3 vessel cord Amniotic fluid: Amount of AF: normal amount Biometry Standard BPD 26.9 mm 14w 5d 74% Hadlock OFD 35.7 mm 84% INTERGROWTH-21st HC 101.8 mm 14w 5d 70% Hadlock AC 79.5 mm 14w 2d 69% Hadlock Femur 13.5 mm 14w 0d 43% Hadlock Humerus 15.9 mm 83% Chitty HC / AC 1.28 83% Hadlock EFW 93 g 14w 0d 50% Hadlock EFW (lb) 0 lb EFW (oz) 3 oz EFW by: Hadlock ([id number]) Head / Face / Neck Cephalic index 0.75 7% Nicolaides Extremities / Bony Struc FL / BPD 0.50 6% Hadlock FL / HC 0.13 1% Hadlock FL / AC 0.17 9% Hadlock Other Structures CRL 85.0 mm -/- 54% Pexsters FHR 149 bpm Anatomy Arms: Both Upper Extremities Seen. Legs: Both Lower Extremities Seen. The following structures appear normal: Cranium. Thorax. Abdominal wall. GI tract. Urogenital tract. Maternal Structures Uterus / Cervix Uterus: Normal Ovaries / Tubes / Adnexa Rt ovary D1 30.4 mm Rt ovary D2 18.3 mm Rt ovary D3 14.4 mm Rt ovary Vol 4.2 cm Lt ovary D1 20.5 mm Lt ovary D2 13.6 mm Lt ovary D3 20.4 mm Lt ovary Vol 3.0 cm [facility]IEWPOINT Derrell Tristan M D - 09/28/2024 Interpreted by: Derrell Tristan Indication ======== Confirm Gestational Age, Crohn's DIsease/ Ulcerative Colitis, Inpatient, [facility] 4 History ====== General History Cwiayt464 cm Height (ft)5 ft Height (in)3 in Previous Outcomes Gravida4 Para2 Children born living ?37w2 Pregnancies delivered at term (T)2 Abortions (A)1 Living children (L)2 Miscarriages1 Other:Previous Section Maternal Assessment Ppnrvx686 cm Height (ft)5 ft Height (in)3 in Urbone52 kg Weight (lb)210 lb Weight gain0 kg Weight gain (lb)0 lb BMI37.20 kg/m Physical Exam Initial weight (lb)210 lb ========= Hubbard . Number of fetuses: 1 Dating ====== LMP on:06/22/2024 Cycle:Very certain LMP, regular cycle GA by LMP14 w + 0 d AKIRA by LMP:03/29/2025 Ultrasound examination on:09/28/2024 GA by U/S based upon:AC, BPD, Femur, HC GA by U/S14 w + 3 d AKIRA by U/S:03/26/2025 Assigned:based on the LMP, selected on 09/28/2024 Assigned GA14 w + 0 d Assigned AKIRA:03/29/2025 Growth Overview Exam date GA BPD (mm) HC (mm) AC (mm) FL (mm) HL (mm) EFW (g) 09/28/2024 14w 0d 26.9 74% 101.8 70% 79.5 69% 13.5 43% 15.9 83% 93 50% Impression ========= INPATIENT STUDY: Patient current admitted for a Crohn's flare. She has no aneuploidy screening. -Gestational age confirmed by biometry -The anatomic survey cannot be completely performed at this gestational age, however no gross abnormalities were suspected. A follow up exam is needed to perform an anatomic survey. See inpatient chart for full plan of care. General Evaluation Cardiac activity present. FHR 149 bpm. movements: visualized. Presentation: breech Placenta: Placental site: anterior Umbilical cord: Cord vessels: 3 vessel cord Amniotic fluid: Amount of AF: normal amount Biometry Standard BPD26.9 mm14w 5d 74% Hadlock OFD35.7 mm 84% INTERGROWTH-21st HC101.8 mm14w 5d 70% Hadlock AC79.5 mm14w 2d 69% Hadlock Femur13.5 mm14w 0d 43% Hadlock Vtvgsgv22.9 mm 83% Chitty HC / AC1.28 83% Hadlock EFW93 g14w 0d 50% Hadlock EFW (lb)0 lb EFW (oz)3 oz EFW by:Hadlock ([id number]-FL) Head / Face / Neck Cephalic index0.75 7% Nicolaides Extremities / Bony Struc FL / BPD0.50 6% Hadlock FL / HC0.13 1% Hadlock FL / AC0.17 9% Hadlock Other Structures CRL85.0 mm-/- 54% Pexsters AGP388 bpm Anatomy Arms: Both Upper Extremities Seen. Legs: Both Lower Extremities Seen. The following structures appear normal: Cranium. Thorax. Abdominal wall. GI tract. Urogenital tract. Maternal Structures Uterus / Cervix Uterus:Normal Ovaries / Tubes / Adnexa Rt ovary D130.4 mm Rt ovary D218.3 mm Rt ovary D314.4 mm Rt ovary Vol4.2 cm Lt ovary D120.5 mm Lt ovary D213.6 mm Lt ovary D320.4 mm Lt ovary Vol3.0 cm [facility] Work Phone: Radiology Study observation (narrative) [facility] Work Phone: US for pregnancyOrdered By: Derrell Tristan on 09-28-2024 [facility] Work Phone: ADALIMUMAB AND ANTIBODY TO A DALIMUMAB QUANTITATIONon 09-27-2024 Adalimumab Ab IA [Mass/Vol] <20 Normal [facility] Comment on above: Result Comment: INTE RPRETIVE INFORMATION: Antibodies to Adalimumab Quantitation Limit of Quantitation = 20 ng/mL Results of 20 ng/mL or higher indicate the detection of antibodies against adalimumab or an adalimumab biosimilar. Interpret in the context of adalimumab or adalimumab biosimilar trough concentration to determine clinical significance and impact on treatment efficacy. This test was developed and its performance characteristics determined by [facility]. It has not been cleared or approved by the U.[place]. Food and Drug Administration. This test was performed in a CLIA-certified laboratory and is intended for clinical purposes. Performed By: [facility] [address] [place] [id number] Supervisor Soldering: Jaylon Owsuu MD, PhD CLIA Number: [id number] Performed By: #### 3 4529-8 #### LINSEY Cuevas ([id number]) [facility] ([facility]) [address] [place] [address] Adalimumab IA [Mass/Vol] 6.2 ug/mL [facility] Comment on above: Result Comment: INTE RPRETIVE INFORMATION: Adalimumab Quantitation Limit of Quantitation = 0.4 ug/mL. Results of 0.4 ug/mL or higher indicate the detection of adalimumab or an adalimumab biosimilar. Therapeutic level may vary depending on the disease being treated. Performed By: #### 3 4529-8 #### LINSEY Cuevas ([id number]) [facility] ([facility]) [address] [place] [address] Blood type and Indirect anti body screen panel (Bld)on 09-27-2024 ABO group Nom (Bld) [facility] antibody screen Ql Negative [facility] D Ag Ql (Bld) Positive [facility] ABO group Nom (Bld) AB Normal [facility] Comment on above: Performed By: #### 3 4532-2 #### LINSEY Cuevas ([id number]) [facility] ([facility]) [address] [place] [address] Blood group antibody screen Ql Negative Normal [facility] Comment on above: Performed By: #### 3 4532-2 #### LINSEY Ceuvas ([id number]) [facility] ([facility]) [address] [place] [address] D Ag Ql (Bld) Positive [facility] Comment on above: Performed By: #### 3 4532-2 #### LINSEY Cuevas ([id number]) [facility] ([facility]) [id number] [place] [address] ABO group Nom (Bld) AB [facility] Blood group antibody screen Ql Negative [facility] D Ag Ql (Bld) Positive [facility] ABO group Nom (Bld) AB Normal [facility] Comment on above: Performed By: #### 3 4532-2 #### LINSEY Cuevas ([id number]) [facility] ([facility]) [address] [place] [address] Blood group antibody screen Ql Negative [facility] Comment on above: Performed By: #### 3 4532-2 #### LINSEY Cuevas ([id number]) [facility] ([facility]) [address] [place] [address] D Ag Ql (Bld) Positive [facility] Comment on above: Performed By: #### 3 4532-2 #### LINSEY Cuevas ([id number]) [facility] ([facility]) [address] [place] [address]148 C reactive proteinon 025 CRP [Mass/Vol] 22.16 mg/dL High <1.00 [facility] Comment on above: Performed By: #### 2 4325-3 #### LINSEY Cuevas ([id number]) [facility] ([facility]) [address] [place] [address] C-reactive proteinon 025 CRP [Mass/Vol] 22.16 mg/dL High NINF - 1.00 mg/dL [facility] CBC W Auto Differential pane l (Bld)on 09-27-2024 Basophils (Bld) [#/Vol] 0.02 10*3/uL [facility] Basophils/100 WBC (Bld) 0.2 % 0.0 - 2.0 % [facility] Eosinophils (Bld) [#/Vol] 0.08 10*3/uL [facility] Eosinophils/100 WBC (Bld) 0.8 % 0.0 - 6.0 % [facility] Erythrocyte distribution width (RBC) [Ratio] 13.4 % 11.5 - 14.5 % [facility] Hematocrit (Bld) [Volume fraction] 28.5 % Low 36.0 - 46.0 % [facility] Hemoglobin (Bld) [Mass/Vol] 9.4 g/dL Low 12.0 - 16.0 g/dL [facility] Immature granulocytes (Bld) [#/Vol] 0.06 10*3/uL [facility] Immature granulocytes/100 WBC (Bld) 0.6 % 0.0 - 0.9 % [facility] Comment on above: Immature Granulocyte Count (IG) includes promyelocytes, myelocytes and metamyelocytes but does not include bands. Percent differential counts (%) should be interpreted in the context of the absolute cell counts (cells/UL). Interpretation and review of laboratory results Abnormal [facility] Lymphocytes (Bld) [#/Vol] 2.48 10*3/uL [facility] Lymphocytes/100 WBC (Bld) 23.5 % 13.0 - 44.0 % [facility] MCH (RBC) [Entitic mass] 24.7 pg Low 26.0 - 34.0 pg [facility] MCHC (RBC) [Mass/Vol] 33 g/dL 32.0 - 36.0 g/dL [facility] MCV (RBC) [Entitic vol] 75 fL Low 80 - 100 fL [facility] Monocytes (Bld) [#/Vol] 1.01 10*3/uL High [facility] Monocytes/100 WBC (Bld) 9.6 % 2.0 - 10.0 % [facility] Neutrophils (Bld) [#/Vol] 6.91 10*3/uL [facility] Comment on above: Percent differential counts (%) should be interpreted in the context of the absolute cell counts (cells/uL). Neutrophils/100 WBC (Bld) 65.3 % 40.0 - 80.0 % [facility] Nucleated RBC/100 WBC (Bld) [Ratio] 0 % [facility] Platelets (Bld) [#/Vol] 335 10*3/uL [facility] RBC (Bld) [#/Vol] 3.8 10*6/uL [facility] WBC (Bld) [#/Vol] 10.6 10*3/uL [facility] Basophils (Bld) [#/Vol] 0.02 x10*3/uL Normal 0.00-0.10 [facility] Comment on above: Performed By: #### 2 5-3 #### LINSEY Cuevas ([id number]) [facility] ([facility]) [address] [place] [address]68 Basophils/100 WBC (Bld) 0.2 % Normal 0.0-2.0 [facility] Comment on above: Performed By: #### 2 5-3 #### LINSEY Cuevas ([id number]) [facility] ([facility]) [address] [place] [address] Eosinophils (Bld) [#/Vol] 0.08 x10*3/uL Normal 0.00-0.70 [facility] Comment on above: Performed By: #### 2 5-3 #### LINSEY Cuevas ([id number]) [facility] ([facility]) [id number] [place] [address] Eosinophils/100 WBC (Bld) 0.8 % Normal 0.0-6.0 [facility] Comment on above: Performed By: #### 2 5-3 #### LINSEY Cuevas ([id number]) [facility] ([facility]) [address] [place] [address]010 Erythrocyte distribution width (RBC) [Ratio] 13.4 % Normal 11.5-14.5 [facility] Comment on above: Performed By: #### 2 5-3 #### LINSEY Cuevas ([id number]) [facility] ([facility]) [id number] [place] [address] Hematocrit (Bld) [Volume fraction] 28.5 % Low 36.0-46.0 [facility] Comment on above: Performed By: #### 2 4325-3 #### LINSEY Cuevas ([id number]) [facility] ([facility]) [address] [place] [address] Hemoglobin (Bld) [Mass/Vol] 9.4 g/dL Low 12.0-16.0 [facility] Comment on above: Performed By: #### 2 4324-3 #### LINSEY Cuevas ([id number]) [facility] ([facility]) [id number] [place] [address] Immature granulocytes (Bld) [#/Vol] 0.06 x10*3/uL Normal 0.00-0.70 [facility] Comment on above: Performed By: #### 2 4325-3 #### LINSEY Cuevas ([id number]) [facility] ([facility]) [address] [place] [address] Immature granulocytes/100 WBC (Bld) 0.6 % Normal 0.0-0.9 [facility] Comment on above: Result Comment: Kiah ture Granulocyte Count (IG) includes promyelocytes, myelocytes and metamyelocytes but does not include bands. Percent differential counts (%) should be interpreted in the context of the absolute cell counts (cells/UL). Performed By: #### 2 4325-3 #### LINSEY Cuevas ([id number]) [facility] ([facility]) [address] [place] [address] Lymphocytes (Bld) [#/Vol] 2.48 x10*3/uL Normal 1.20-4.80 [facility] Comment on above: Performed By: #### 2 4325-3 #### LINSEY Cuevas ([id number]) [facility] ([facility]) [address] [place] [address] Lymphocytes/100 WBC (Bld) 23.5 % Normal 13.0-44.0 [facility] Comment on above: Performed By: #### 2 5-3 #### LINSEY Cuevas ([id number]) [facility] ([facility]) [address] [place], [place] [address] MCH (RBC) [Entitic mass] 24.7 pg Low 26.0-34.0 [facility] Comment on above: Performed By: #### 2 5-3 #### LINSEY ESCOBAR L ([id number]) [facility] ([facility]) [id number] [place] [address] 32226 MCHC (RBC) [Mass/Vol] 33.0 g/dL Normal 32.0-36.0 [facility] Comment on above: Performed By: #### 2 4324-3 #### LINSEY Cuevas ([id number]) [facility] ([facility]) [address] [place] [address] 27149 MCV (RBC) [Entitic vol] 75 fL Low 80-100 [facility] Comment on above: Performed By: #### 2 4324-3 #### LINSEY Cuevas ([id number]) [facility] ([facility]) [address] [place] [address] 49499 Monocytes (Bld) [#/Vol] 1.01 x10*3/uL High 0.10-1.00 [facility] Comment on above: Performed By: #### 2 5-3 #### LINSEY Cuevas ([id number]) [facility] ([facility]) [id number] [place] [address] 36563 Monocytes/100 WBC (Bld) 9.6 % Normal 2.0-10.0 [facility] Comment on above: Performed By: #### 2 5-3 #### LINSEY Cuevas ([id number]) [facility] ([facility]) [address] [place] [address] 99607 Neutrophils (Bld) [#/Vol] 6.91 x10*3/uL Normal 1.20-7.70 [facility] Comment on above: Result Comment: Perc ent differential counts (%) should be interpreted in the context of the absolute cell counts (cells/uL). Performed By: #### 2 4325-3 #### LINSEY Cuevas ([id number]) [facility] ([facility]) [address] [place] [address] Neutrophils/100 WBC (Bld) 65.3 % Normal 40.0-80.0 [facility] Comment on above: Performed By: #### 2 4325-3 #### LINSEY Cuevas ([id number]) [facility] ([facility]) [id number] [place] [address] 82480 Nucleated RBC/100 WBC (Bld) [Ratio] 0.0 /100 WBCs Normal 0.0-0.0 [facility] Comment on above: Performed By: #### 2 4325-3 #### LINSEY Cuevas ([id number]) [facility] ([facility]) [address] [place] [address] 69495 Platelets (Bld) [#/Vol] 335 x10*3/uL Normal 150-450 [facility] Comment on above: Performed By: #### 2 4325-3 #### LINSEY Cuevas ([id number]) [facility] ([facility]) [id number] [place] [address] 82414 RBC (Bld) [#/Vol] 3.80 x10*6/uL Low 4.00-5.20 [facility] Comment on above: Performed By: #### 2 4325-3 #### LINSEY Cuevas ([id number]) [facility] ([facility]) [address] [place] [address] 28292 WBC (Bld) [#/Vol] 10.6 x10*3/uL Normal 4.4-11.3 [facility] Comment on above: Performed By: #### 2 4325-3 #### LINSEY ESCOBAR L ([id number]) [facility] ([facility]) [address] [place] [address] 13403 Calprotectinon 09-27-2024 Calprotectin (Stl) [Mass/Mass] >3000 High <=49 [facility] Comment on above: Result Comment: REFE RENCE INTERVAL: Calprotectin, Fecal by Immunoassay Less than 50 ug/g........Normal 50-120 ug/g..............Borderline elevated, test should be re-evaluated in 4-6 weeks. 121 ug/g or greater......Elevated Performed By: [facility] [address] [place] [address] Supervisor Soldering: Jaylon Owusu MD, PhD CLIA Number: [id number] Performed By: #### 5 8410-2 #### LINSEY Cuevas ([id number]) [facility] ([facility]) [address] [place], [place] [address] Clostridioides difficile tox in A+B tcdA+tcdB geneson 09-27-2024 C. difficile toxin A+B tcdA+tcdB genes DARREN+probe Ql (Stl) Clostridioides difficile toxin A+B tcdA+tcdB genes Not Detected Normal Not Detected [facility] Comment on above: Order Comment: This test is an FDA-cleared real-time PCR assay for detection of toxigenic C. difficile DNA from unprocessed liquid or unformed stool specimens that have not undergone nucleic acid extraction in symptomatic patients with potential C. difficile infection (CDI). A positive result may indicate colonization, and clinical assessment is required for the diagnosis of CDI. This test cannot be performed on formed stools or used as a test of cure, and should not be performed more than once per 7 days. Performed By: #### 3 4532-2 #### LINSEY Cuevas ([id number]) [facility] ([facility]) [address] [place] [address] Cobalamin (Vitamin B12) [Mas s/Vol]on 09-27-2024 Interpretation and review of laboratory results Abnormal [facility] Cobalaminson 09-27-2024 Cobalamin (Vitamin B12) [Mass/Vol] 1037 pg/mL High 211-911 [facility] Comment on above: Performed By: #### 3 4532-2 #### LINSEY Cuevas ([id number]) [facility] ([facility]) [address] [place] [address] Comprehensive metabolic 2000 panelon 09-27-2024 Albumin BCP dye [Mass/Vol] 3 g/dL Low 3.4 - 5.0 g/dL [facility] ALP [Catalytic activity/Vol] 100 U/L 33 - 110 U/L [facility] ALT With P-5'-P [Catalytic activity/Vol] 13 U/L 7 - 45 U/L [facility] Comment on above: Patients treated wit h Sulfasalazine may generate falsely decreased results for ALT. Anion gap [Moles/Vol] 13 mmol/L 10 - 2 0 mmol/L [facility] AST With P-5'-P [Catalytic activity/Vol] 14 U/L 9 - 39 U/L [facility] Bilirubin [Mass/Vol] 0.3 mg/dL 0.0 - 1 .2 mg/dL [facility] Calcium [Mass/Vol] 8.6 mg/dL 8.6 - 10. 6 mg/dL [facility] Chloride [Moles/Vol] 96 mmol/L Low 98 - 10 7 mmol/L [facility] CO2 [Moles/Vol] 24 mmol/L 21 - 32 mmol/L [facility] Creatinine [Mass/Vol] 0.56 mg/dL 0.50 - 1.05 mg/dL [facility] eGFR - PINF [facility] Comment on above: Calculations of lazarus mated GFR are performed using the 2020 CKD-EPI Study Refit equation without the race variable for the IDMS-Traceable creatinine methods. https://jasn.asnjournals.org/content//ASN.08700 05239 Glucose [Mass/Vol] 105 mg/dL High 74 - 99 mg/dL [facility] Potassium [Moles/Vol] 3.2 mmol/L Low 3.5 - 5.3 mmol/L [facility] Protein [Mass/Vol] 7.3 g/dL 6.4 - 8.2 g/dL [facility] Sodium [Moles/Vol] 130 mmol/L Low 136 - 145 mmol/L [facility] Urea nitrogen [Mass/Vol] 6 mg/dL 6 - 23 mg/dL [facility] Albumin BCP dye [Mass/Vol] 3.0 g/dL Low 3.4-5.0 [facility] Comment on above: Performed By: #### 2 4325-3 #### LINSEY Cuevas ([id number]) [facility] ([facility]) [address] [place] [address] ALP [Catalytic activity/Vol] 100 U/L Normal 33-110 [facility] Comment on above: Performed By: #### 2 4325-3 #### LINSEY Cuevas ([id number]) [facility] ([facility]) [id number] [place] [address] 38653 ALT With P-5'-P [Catalytic activity/Vol] 13 U/L Normal 7-45 [facility] Comment on above: Result Comment: Jade ents treated with Sulfasalazine may generate falsely decreased results for ALT. Performed By: #### 2 4325-3 #### LINSEY Cuevas ([id number]) [facility] ([facility]) [address] [place] [address] 12057 Anion gap [Moles/Vol] 13 mmol/L Normal 10-20 [facility] Comment on above: Performed By: #### 2 4325-3 #### LINSEY Cuevas ([id number]) [facility] ([facility]) [id number] [place] [address] 69574 AST With P-5'-P [Catalytic activity/Vol] 14 U/L Normal 9-39 [facility] Comment on above: Performed By: #### 2 4325-3 #### LINSEY Cuevas ([id number]) [facility] ([facility]) [address] [place] [address] 30779 Bilirubin [Mass/Vol] 0.3 mg/dL Normal 0.0-1.2 [facility] Comment on above: Performed By: #### 2 4325-3 #### LINSEY Cuevas ([id number]) [facility] ([facility]) [address] [place] [address] 49925 Calcium [Mass/Vol] 8.6 mg/dL Normal 8.6-10.6 [facility] Comment on above: Performed By: #### 2 4325-3 #### LINSEY Cuevas ([id number]) [facility] ([facility]) [address] [place] [address] Chloride [Moles/Vol] 96 mmol/L Low 98-107 [facility] Comment on above: Performed By: #### 2 4325-3 #### LINSEY ESCOBAR L ([id number]) [facility] ([facility]) [address] [place] [address] CO2 [Moles/Vol] 24 mmol/L Normal 21-32 [facility] Comment on above: Performed By: #### 2 4325-3 #### LINSEY Cuevas ([id number]) [facility] ([facility]) [address] [place] [address] 34767 Creatinine [Mass/Vol] 0.56 mg/dL Normal 0.50-1.05 [facility] Comment on above: Performed By: #### 2 4325-3 #### LINSEY Cuevas ([id number]) [facility] ([facility]) [address] [place] [address] GFR/1.73 sq M.predicted MDRD (S/P/Bld) [Vol rate/Area] mL/min/{1.73_m2} Normal >60 [facility] Comment on above: Result Comment: Calc ulations of estimated GFR are performed using the 2020 CKD-EPI Study Refit equation without the race variable for the IDMS-Traceable creatinine methods. https://jasn.asnjournals.org/content/early/ASN.50335 55399 Performed By: #### 2 4325-3 #### LINSEY Cuevas ([id number]) [facility] ([facility]) [address] [place] [address] Glucose [Mass/Vol] 105 mg/dL High 74-99 [facility] Comment on above: Performed By: #### 2 4325-3 #### LINSEY Cuevas ([id number]) [facility] ([facility]) [id number] [place] [address] 02308 Potassium [Moles/Vol] 3.2 mmol/L Low 3.5-5.3 [facility] Comment on above: Performed By: #### 2 4325-3 #### LINSEY Cuevas ([id number]) [facility] ([facility]) [address] [place] [address] 30376 Protein [Mass/Vol] 7.3 g/dL Normal 6.4-8.2 [facility] Comment on above: Performed By: #### 2 5-3 #### LINSEY Cuevas ([id number]) [facility] ([facility]) [address] [place] [address] 59665 Sodium [Moles/Vol] 130 mmol/L Low 136-145 [facility] Comment on above: Performed By: #### 2 5-3 #### LINSEY Cuevas ([id number]) [facility] ([facility]) [address] [place] [address] 30132 Urea nitrogen [Mass/Vol] 6 mg/dL Normal 6-23 [facility] Comment on above: Performed By: #### 2 5-3 #### LINSEY Cuevas ([id number]) [facility] ([facility]) [address] [place] [address] 04795 ESR Westergren method (Bld) [Velocity]on 09-27-2024 ESR (Bld) [Velocity] 113 mm/h High 0 - 20 mm/h [facility] Interpretation and review of laboratory results Abnormal [facility] ESR (Bld) [Velocity] 113 mm/h High 0-20 [facility] Comment on above: Performed By: #### 2 4325-3 #### LINSEY Cuevas ([id number]) [facility] ([facility]) [id number] [place] [address] 22442 Extra Urine Springer Tubeon Extra Tube Hold for add-ons. [facility] Comment on above: Auto resulted. [facility] Ferritinon 09-27-2024 Ferritin [Mass/Vol] 164 ng/mL High 8 - 150 ng/mL [facility] Ferritin [Mass/Vol] 164 ng/mL High 8-150 [facility] Comment on above: Performed By: #### 3 4532-2 #### LINSEY Cuevas ([id number]) [facility] ([facility]) [address] [place] [address] Folateon 09-27-2024 Folate [Mass/Vol] 23.5 ng/mL 5.0 - PINF ng/mL [facility] Folate [Mass/Vol] 23.5 ng/mL Normal >5.0 [facility] Comment on above: Order Comment: Low < 3.4Borderline 3.4-5.0Normal >5.0Patients receiving more than 5 mg/day of biotin may have interference in test results. A sample should be taken no sooner than eight hours after previous dose. Contact the testing laboratory for additional information. Performed By: #### 3 4532-2 #### LINSEY Cuevas ([id number]) [facility] ([facility]) [address] [place] [address] Folate [Mass/Vol]on 09-27-19 Interpretation and review of laboratory results Normal [facility] Low <3.4 Borderline 3.4-5.0 Normal >5.0 Patients receiving more than 5 mg/day of biotin may have interference in test results. A sample should be taken no sooner than eight hours after previous dose. Contact the testing laboratory for additional information. [facility] Gastrointestinal pathogens i dentifiedon 09-27-2024 Gastrointestinal pathogens identified DARREN+probe Nom (Stl) Campylobacter coli+jejuni+upsaliensi s DNA Not Detected Salmonella sp DNA Not Detected Shigella sp DNA Not Detected Vibrio cholerae DNA Not Detected Yersinia enterocolitica DNA Not Detected Escherichia coli Stx1 toxin stx1 gene Not Detected Escherichia coli Stx2 toxin stx2 gene Not Detected Norovirus genogroup I AND II RNA Not Detected Rotavirus RNA Not Detected Normal Not Detected [facility] Comment on above: Performed By: #### V ERAB #### LINSEY Cuevas ([id number]) [facility] ([facility]) [address] [place] [address] Iron and Iron binding capaci ty panelon 09-27-2024 Iron [Mass/Vol] ug/dL Low 35 - 150 ug/dL [facility] Iron binding capacity [Mass/Vol] [facility] Comment on above: One or more of the a nalytes used in this calculation is outside of the analytical measurement range. Iron binding capacity.unsaturated [Mass/Vol] 250 ug/dL 110 - 370 ug/dL [facility] Iron saturation [Mass fraction] [facility] Comment on above: One or more analytes used in this calculation is outside of the analytical measurement range. Calculation cannot be performed. Iron [Mass/Vol] ug/dL Low 35-150 [facility] Comment on above: Performed By: #### 3 4532-2 #### LINSEY Cuevas ([id number]) [facility] ([facility]) [address] [place] [address] Iron binding capacity [Mass/Vol] Normal [facility] Comment on above: Result Comment: One or more of the analytes used in this calculation is outside of the analytical measurement range. Performed By: #### 3 4532-2 #### LINSEY Cuevas ([id number]) [facility] ([facility]) [address] [place] [address] Iron binding capacity.unsaturated [Mass/Vol] 250 ug/dL Normal 110-370 [facility] Comment on above: Performed By: #### 3 4532-2 #### LINSEY Cuevas ([id number]) [facility] ([facility]) [address] [place] [address] Iron saturation [Mass fraction] Normal [facility] Comment on above: Result Comment: One or more analytes used in this calculation is outside of the analytical measurement range. Calculation cannot be performed. Performed By: #### 3 4532-2 #### LINSEY Cuevas ([id number]) [facility] ([facility]) [address] [place] [address] Magnesiumon 09-27-2024 Magnesium [Mass/Vol] 1.78 mg/dL 1.60 - 2.40 mg/dL [facility] Magnesium [Mass/Vol] 1.78 mg/dL Normal 1.60-2.40 [facility] Comment on above: Performed By: #### 3 4532-2 #### LINSEY Cuevas ([id number]) [facility] ([facility]) [address] [place] [address] Magnesium [Mass/Vol]on 09-27 Interpretation and review of laboratory results Normal [facility] No Panel Informationon 09-27 [facility] Interpretation and review of laboratory results Abnormal [facility] Interpretation and review of laboratory results Abnormal [facility] Urinalysis complete W Reflex Culture panel (U)on 09-27-2024 Appearance (U) Clear Clear [facility] Bilirubin (U) [Mass/Vol] Negative NEGATIVE [facility] Color (U) Light-Yellow Light-Yellow , Yellow, Dark-Yellow [facility] Glucose Auto test strip (U) [Mass/Vol] Normal Normal mg/dL [facility] Interpretation and review of laboratory results Abnormal [facility] Ketones (U) [Mass/Vol] Negative NEGAT ZOEY mg/dL [facility] Leukocyte esterase Auto test strip Ql (U) Negative NEGATIVE [facility] Nitrite Auto test strip Ql (U) Negative NEGATIVE [facility] pH (U) 6 [pH] 5.0, 5.5, 6.0, 6.5, 7.0, 7.5, 8.0 [facility] Protein (U) [Mass/Vol] Negative NEGAT ZOEY, 10 (TRACE), 20 (TRACE) mg/dL [facility] RBC (U) [#/Vol] 0.03 (TRACE) Abnormal NEGATIVE [facility] Specific gravity (U) [Rel density] 1.008 1.005 - 1.035 [facility] Urobilinogen (U) [Mass/Vol] Normal Normal mg/dL [facility] Epithelial cells.squamous Auto (Urine sed) [#/Area] 1-9 (SPARSE) Reference range not established. /HPF [facility] RBC Auto (Urine sed) [#/Area] 1-2 NONE, 1-2, 3-5 /HPF [facility] WBC Auto (Urine sed) [#/Area] 1-5 1-5, NONE /HPF [facility] Appearance (U) Clear Normal Clear [facility] Comment on above: Performed By: #### 3 2-2 #### LINSEY Cuevas ([id number]) [facility] ([facility]) [address] [place] [address] Bilirubin (U) [Mass/Vol] Negative Normal NEGATIVE [facility] Comment on above: Performed By: #### 3 4531-2 #### LINSEY Cuevas ([id number]) [facility] ([facility]) [address] [place] [address] Color (U) Light-Yellow Normal Light-Yellow , Yellow, Dark-Yellow [facility] Comment on above: Performed By: #### 3 4531-2 #### LINSEY ESCOBAR L ([id number]) [facility] ([facility]) [address] [place] [address] Epithelial cells.squamous Auto (Urine sed) [#/Area] 1-9 (SPARSE) Normal Reference range not established. [facility] Comment on above: Performed By: #### 3 4532-2 #### LINSEY ESCOBAR L ([id number]) [facility] ([facility]) [address] [place] [address] Glucose Auto test strip (U) [Mass/Vol] Normal Normal Normal [facility] Comment on above: Performed By: #### 3 453-2 #### LINSEY ESCOBAR L ([id number]) [facility] ([facility]) [address] [place] [address] Ketones (U) [Mass/Vol] Negative Normal [facility]IVE [facility] Comment on above: Performed By: #### 3 4531-2 #### LINSEY ESCOBAR L ([id number]) [facility] ([facility]) [address] [place] [address] Leukocyte esterase Auto test strip Ql (U) Negative Normal NEGATIVE [facility] Comment on above: Performed By: #### 3 4532-2 #### LINSEY Cuevas ([id number]) [facility] ([facility]) [address] [place] [address] Nitrite Auto test strip Ql (U) Negative Normal NEGATIVE [facility] Comment on above: Performed By: #### 3 453-2 #### LINSEY Cuevas ([id number]) [facility] ([facility]) [address] [place] [address] pH (U) 6.0 [pH] Normal 5.0, 5.5, 6.0, 6.5, 7.0, 7.5, 8.0 [facility] Comment on above: Performed By: #### 3 453-2 #### LINSEY Cuevas ([id number]) [facility] ([facility]) [address] [place] [address] Protein (U) [Mass/Vol] Negative Normal NEGAT ZOEY, 10 (TRACE), 20 (TRACE) [facility] Comment on above: Performed By: #### 3 4532-2 #### LINSEY Cuevas ([id number]) [facility] ([facility]) [address] [place] [address] RBC (U) [#/Vol] 0.03 (TRACE) Abnormal NEGATIVE [facility] Comment on above: Performed By: #### 3 4532-2 #### LINSEY Cuevas ([id number]) [facility] ([facility]) [address] [place] [address] RBC Auto (Urine sed) [#/Area] 1-2 Normal NONE, 1-2, 3-5 [facility] Comment on above: Performed By: #### 3 4532-2 #### LINSEY Cuevas ([id number]) [facility] ([facility]) [address] [place] [address] Specific gravity (U) [Rel density] 1.008 Normal 1.005-1.035 [facility] Comment on above: Performed By: #### 3 4532-2 #### LINSEY Cuevas ([id number]) [facility] ([facility]) [address] [place] [address] Urobilinogen (U) [Mass/Vol] Normal Normal Normal [facility] Comment on above: Performed By: #### 3 4532-2 #### LINSEY Cuevas ([id number]) [facility] ([facility]) [address] [place] [address] WBC Auto (Urine sed) [#/Area] 1-5 Normal 1-5, NONE [facility] Comment on above: Performed By: #### 3 4532-2 #### LINSEY Cuevas ([id number]) [facility] ([facility]) [address] [place] [address] Vitamin B12on 09-27-2024 Cobalamin (Vitamin B12) [Mass/Vol] 1037 pg/mL High 211 - 911 pg/mL [facility] CT ENTEROGRAPHY WITH IV CONT [facility] 06-13-2024 CT ENTEROGRAPHY WITH IV CONTRAST Interpreted By: [place] [facility] [place] Antonio STUDY: CT ENTEROGRAPHY WITH IV CONTRAST; 06/13/2024 2:52 pm INDICATION: Signs/Symptoms:Evaluat e involvement of the small bowel. Patient has IBD, likely Crohn's disease, but unclear if it is UC with backwash ileitis vs. Crohn's disease. Per EMR: Colonoscopy (September 07, 2023) -mild pancolitis confirmed by biopsy to be chronic active colitis with varying degrees of severity throughout the colon. Treated with prednisone and mesalamine. Condition worsened when prednisone was tapered. Patient readmitted in March 08, [address] for severe perineal pain. 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 Patient underwent incision and drainage of perineal abscess. Repeat colonoscopy (May 08, 2024)-inflammation throughout the entire colon, most severe in the rectosigmoid region along with involvement of the terminal ileus. COMPARISON: None. ACCESSION NUMBER(S): [id number] ORDERING CLINICIAN: GEORGES MARIN TECHNIQUE: CT abdomen and pelvis with CT Enterography protocol, including single enteric-phase CT after the uneventful administration of 75 mL of Omnipaque 350. Patient given 1,350 mL neutral oral contrast (Volumen) for bowel distension. FINDINGS: LOWER CHEST: Bibasilar atelectasis. The visualized lung base is unremarkable. The heart is normal in size without evidence of pericardial effusion. No pleural effusion is evident. STOMACH / DUODENUM: Grossly normal by CT which has limited sensitivity and specificity for abnormalities of the stomach and duodenum. SMALL BOWEL: Postsurgical change: None Caliber: Normal Active IBD changes: The terminal ileum and the remainder of the small bowel show no wall thickening or hyper enhancement. There are no mesenteric changes associated with active inflammatory bowel disease about the small bowel loops. Stricture: No obvious stricture. Fistula: None Small bowel mass/lesion: No demonstrable small bowel lesion. COLON: There is intraluminal fecal material within the ascending colon, with no evidence of bowel wall thickening. Extending from proximal transverse colon of all the way up to distal rectum there is bowel wall thickening mucosal enhancement and associated hyperemia. No evidence of stricture or fistula formation or bowel obstruction noted. APPENDIX: Normal caliber appendix is identified. No wall thickening or inflammatory change about the appendix. LIVER: The liver is enlarged measuring 21.4 cm in craniocaudal dimension.There is a 1.9 cm focal hypodensity anterior to the main portal vein, incompletely characterized on current exam, however likely represent an area of focal fatty replacement GALLBLADDER: Cholelithiasis without cholecystitis. BILE DUCTS: Normal caliber. PANCREAS: There is absence of the pancreatic tail near the level of the splenic hilum. The distal pancreatic body demonstrates a smooth margin at its termination. 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 SPLEEN: Normal size. Homogeneous enhancement. Note is made of an accessory splenule. ADRENAL GLANDS: Within normal limits. KIDNEYS AND URETERS: Normal size kidneys. 0.2 cm nonobstructing renal calculus at the right midpole. No hydroureteronephrosis or ureterolithiasis. No focal lesion evident. PELVIS: BLADDER: There is a focal area of wall thickening of the anterior bladder wall. There is associated perivesicular stranding in the fat adjacent to this area. In the setting of known irritable bowel disease, unable to completely exclude prior fistulization of the sigmoid colon in the setting of the known pancolitis described in previous colonoscopy reports. Additional considerations include inflammation of a urachal remnant versus cystitis (series 5, image 145). REPRODUCTIVE ORGANS: The uterus is present. VESSELS: The aorta and IVC are within normal limits. The principal vasculature of the abdomen and pelvis is patent. No aneurysm. PERITONEUM/RETROPERITO NEUM/LYMPH NODES: There is no free or loculated intraperitoneal or retroperitoneal fluid collection, no free intraperitoneal air. No adenopathy. BONES AND ABDOMINAL WALL: No evidence of acute fracture. No suspicious osseous lesions are identified. There is increased soft tissue density along the perianal region/left perineum, likely related to postsurgical changes associated with prior incision and drainage. No evidence of a loculated fluid collection. IMPRESSION: 1. Unremarkable small bowel including terminal ileal with intraluminal fecal material noted in the ascending colon. Bowel wall thickening, mucosal enhancement and hyperemia seen extending from proximal transverse colon all the way up to distal rectum, likely representing ulcerative colitis. T (more content not included)... Normal [facility] CT Small bowel W contrast PO and W contrast Kriss 06-13-2024 1. Unremarkable smal l bowel including terminal ileal with intraluminal fecal material noted in the ascending colon. Bowel wall thickening, mucosal enhancement and hyperemia seen extending from proximal transverse colon all the way up to distal rectum, likely representing ulcerative colitis. Tissue diagnosis recommended. No evidence of bowel obstruction or stricture identified at current juncture. Comparison with outside prior study recommended. 2. Focal area of wall thickening of the anterior bladder wall with associated perivesicular fat stranding. Given the pancolitis described in previous colonoscopy reports, unable to completely exclude prior fistulization of the sigmoid colon with the bladder in this area. Comparison with outside prior imaging is strongly recommended. Additional considerations: Inflamed urachal remnant versus cystitis, correlate with urinalysis. 3. Right-sided nonobstructing nephrolithiasis. 4. Cholelithiasis without cholecystitis. 5. 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 However as per clinical need further evaluation with the serum IgG 4 level recommended. 6. Findings favored to represent postsurgical changes related to incision and drainage of the perianal region/left perineum. No loculated fluid collection. I personally reviewed the images/study and I agree with the findings as stated by Tommy Mccloud MD. This study was interpreted at [facility], [place], [place] Signed by: Lake Muñoz 06/13/2024 9:43 PM Dictation workstation: [id number] [facility] Interpreted By: Lake Muñoz, and Ame Sanders STUDY: CT ENTEROGRAPHY WITH IV CONTRAST; 06/13/2024 2:52 pm INDICATION: Signs/Symptoms:Evaluat e involvement of the small bowel. Patient has IBD, likely Crohn's disease, but unclear if it is UC with backwash ileitis vs. Crohn's disease. Per EMR: Colonoscopy (September 07, 2023) -mild pancolitis confirmed by biopsy to be chronic active colitis with varying degrees of severity throughout the colon. Treated with prednisone and mesalamine. Condition worsened when prednisone was tapered. Patient readmitted in March 08, [address]24 for severe perineal pain. 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 Patient underwent incision and drainage of perineal abscess. Repeat colonoscopy (May 08, 2024)-inflammation throughout the entire colon, most severe in the rectosigmoid region along with involvement of the terminal ileus. COMPARISON: None. ACCESSION NUMBER(S): [id number] ORDERING CLINICIAN: GEORGES MARIN TECHNIQUE: CT abdomen and pelvis with CT Enterography protocol, including single enteric-phase CT after the uneventful administration of 75 mL of Omnipaque 350. Patient given 1,350 mL neutral oral contrast (Volumen) for bowel distension. FINDINGS: LOWER CHEST: Bibasilar atelectasis. The visualized lung base is unremarkable. The heart is normal in size without evidence of pericardial effusion. No pleural effusion is evident. STOMACH / DUODENUM: Grossly normal by CT which has limited sensitivity and specificity for abnormalities of the stomach and duodenum. SMALL BOWEL: Postsurgical change: None Caliber: Normal Active IBD changes: The terminal ileum and the remainder of the small bowel show no wall thickening or hyper enhancement. There are no mesenteric changes associated with active inflammatory bowel disease about the small bowel loops. Stricture: No obvious stricture. Fistula: None Small bowel mass/lesion: No demonstrable small bowel lesion. COLON: There is intraluminal fecal material within the ascending colon, with no evidence of bowel wall thickening. Extending from proximal transverse colon of all the way up to distal rectum there is bowel wall thickening mucosal enhancement and associated hyperemia. No evidence of stricture or fistula formation or bowel obstruction noted. APPENDIX: Normal caliber appendix is identified. No wall thickening or inflammatory change about the appendix. LIVER: The liver is enlarged measuring 21.4 cm in craniocaudal dimension.There is a 1.9 cm focal hypodensity anterior to the main portal vein, incompletely characterized on current exam, however likely represent an area of focal fatty replacement GALLBLADDER: Cholelithiasis without cholecystitis. BILE DUCTS: Normal caliber. PANCREAS: There is absence of the pancreatic tail near the level of the splenic hilum. The distal pancreatic body demonstrates a smooth margin at its termination. 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 SPLEEN: Normal size. Homogeneous enhancement. Note is made of an accessory splenule. ADRENAL GLANDS: Within normal limits. KIDNEYS AND URETERS: Normal size kidneys. 0.2 cm nonobstructing renal calculus at the right midpole. No hydroureteronephrosis or ureterolithiasis. No focal lesion evident. PELVIS: BLADDER: There is a focal area of wall thickening of the anterior bladder wall. There is associated perivesicular stranding in the fat adjacent to this area. In the setting of known irritable bowel disease, unable to completely exclude prior fistulization of the sigmoid colon in the setting of the known pancolitis described in previous colonoscopy reports. Additional considerations include inflammation of a urachal remnant versus cystitis (series 5, image 145). REPRODUCTIVE ORGANS: The uterus is present. VESSELS: The aorta and IVC are within normal limits. The principal vasculature of the abdomen and pelvis is patent. No aneurysm. PERITONEUM/RETROPERITO NEUM/LYMPH NODES: There is no free or loculated intraperitoneal or retroperitoneal fluid collection, no free intraperitoneal air. No adenopathy. BONES AND ABDOMINAL WALL: No evidence of acute fracture. No suspicious osseous lesions are identified. There is increased soft tissue density along the perianal region/left perineum, likely related to postsurgical changes associated with prior incision and drainage. No evidence of a loculated fluid collection. [facility] Lake Muñoz M D - 06/13/2024 Interpreted By: Lake Muñoz and Barbat Antonio STUDY: CT ENTEROGRAPHY WITH IV CONTRAST; 06/13/2024 2:52 pm INDICATION: Signs/Symptoms:Evaluat e involvement of the small bowel. Patient has IBD, likely Crohn's disease, but unclear if it is UC with backwash ileitis vs. Crohn's disease. Per EMR: Colonoscopy (September 07, 2023) -mild pancolitis confirmed by biopsy to be chronic active colitis with varying degrees of severity throughout the colon. Treated with prednisone and mesalamine. Condition worsened when prednisone was tapered. Patient readmitted in March 08, 2024 for severe perineal pain. 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 Patient underwent incision and drainage of perineal abscess. Repeat colonoscopy (May 08, 2024)-inflammation throughout the entire colon, most severe in the rectosigmoid region along with involvement of the terminal ileus. COMPARISON: None. ACCESSION NUMBER(S): [id number] ORDERING CLINICIAN: GEORGES MARIN TECHNIQUE: CT abdomen and pelvis with CT Enterography protocol, including single enteric-phase CT after the uneventful administration of 75 mL of Omnipaque 350. Patient given 1,350 mL neutral oral contrast (Volumen) for bowel distension. FINDINGS: LOWER CHEST: Bibasilar atelectasis. The visualized lung base is unremarkable. The heart is normal in size without evidence of pericardial effusion. No pleural effusion is evident. STOMACH / DUODENUM: Grossly normal by CT which has limited sensitivity and specificity for abnormalities of the stomach and duodenum. SMALL BOWEL: Postsurgical change: None Caliber: Normal Active IBD changes: The terminal ileum and the remainder of the small bowel show no wall thickening or hyper enhancement. There are no mesenteric changes associated with active inflammatory bowel disease about the small bowel loops. Stricture: No obvious stricture. Fistula: None Small bowel mass/lesion: No demonstrable small bowel lesion. COLON: There is intraluminal fecal material within the ascending colon, with no evidence of bowel wall thickening. Extending from proximal transverse colon of all the way up to distal rectum there is bowel wall thickening mucosal enhancement and associated hyperemia. No evidence of stricture or fistula formation or bowel obstruction noted. APPENDIX: Normal caliber appendix is identified. No wall thickening or inflammatory change about the appendix. LIVER: The liver is enlarged measuring 21.4 cm in craniocaudal dimension.There is a 1.9 cm focal hypodensity anterior to the main portal vein, incompletely characterized on current exam, however likely represent an area of focal fatty replacement GALLBLADDER: Cholelithiasis without cholecystitis. BILE DUCTS: Normal caliber. PANCREAS: There is absence of the pancreatic tail near the level of the splenic hilum. The distal pancreatic body demonstrates a smooth margin at its termination. 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 SPLEEN: Normal size. Homogeneous enhancement. Note is made of an accessory splenule. ADRENAL GLANDS: Within normal limits. KIDNEYS AND URETERS: Normal size kidneys. 0.2 cm nonobstructing renal calculus at the right midpole. No hydroureteronephrosis or ureterolithiasis. No focal lesion evident. PELVIS: BLADDER: There is a focal area of wall thickening of the anterior bladder wall. There is associated perivesicular stranding in the fat adjacent to this area. In the setting of known irritable bowel disease, unable to completely exclude prior fistulization of the sigmoid colon in the setting of the known pancolitis described in previous colonoscopy reports. Additional considerations include inflammation of a urachal remnant versus cystitis (series 5, image 145). REPRODUCTIVE ORGANS: The uterus is present. VESSELS: The aorta and IVC are within normal limits. The principal vasculature of the abdomen and pelvis is patent. No aneurysm. PERITONEUM/RETROPERITO NEUM/LYMPH NODES: There is no free or loculated intraperitoneal or retroperitoneal fluid collection, no free intraperitoneal air. No adenopathy. BONES AND ABDOMINAL WALL: No evidence of acute fracture. No suspicious osseous lesions are identified. There is increased soft tissue density along the perianal region/left perineum, likely related to postsurgical changes associated with prior incision and drainage. No evidence of a loculated fluid collection. IMPRESSION: 1. Unremarkable small bowel including terminal ileal with intraluminal fecal material noted in the ascending colon. Bowel wall thickening, mucosal enhancement and hyperemia seen extending from pro (more content not included)... [facility] Work Phone: Radiology Study observation (narrative) [facility] Work Phone: CT Small bowel W contrast PO and W contrast IVOrdered By: Lake Muñoz on 06-13-2024 [facility] Work Phone: TPMT GenotypingOrdered By: Lia Banks on 05-30-2024 Scan Result See Scanned Result [facility] M. tuberculosis stim IFN-g a nd spot count panel (Bld)on 05-26-2024 Gamma interferon negative control spot count (Bld) [#] Passed [facility] M. tuberculosis stim IFN-g CFP10 Ag spot count (Bld) [#] 0 [facility] M. tuberculosis stim IFN-g ESAT-6 Ag spot count (Bld) [#] 0 [facility] M. tuberculosis stim IFN-g Ql (Bld) [Interp] Negative Negative [facility] Comment on above: A negative test result does not exclude the possibility of exposure to or infection with Mycobacterium tuberculosis (M. tuberculosis). Patients with recent exposure to TB infected individuals exhibiting a negative T-SPOT.TB result should be considered for retesting within 6 weeks or if other relevant clinical symptoms indicate. Results from T-SPOT.TB testing must be used in conjunction with each individual's epidemiological history, current medical status, and results of other diagnostic evaluations. The T-SPOT.TB test is qualitative and results are reported as positive, borderline, or negative, given that the test controls perform as expected. In line with the Centers for Disease Control and Prevention's 2010 recommendation to report quantitative measurements alongside the qualitative result, the laboratory provides spot counts for informational purposes only. The T-SPOT.TB test should not be interpreted as a quantitative test. Mitogen stimulated gamma interferon positive control spot count (Bld) [#] Passed [facility] Comment on above: For additional information, please refer to http://education.[employer]/faq/LEL842 (This link is being provided for informational/ educational purposes only.) [facility] C reactive proteinon 024 CRP [Mass/Vol] 6.04 mg/dL High <1.00 [facility] Comment on above: Performed By: #### 2 4323-8 #### LINSEY Cuevas ([id number]) [facility] ([facility] [address] [place] [address] C-reactive proteinon 024 CRP [Mass/Vol] 6.04 mg/dL High NINF - 1.00 mg/dL [facility] CRP [Mass/Vol]on 05-24-2024 Interpretation and review of laboratory results Abnormal [facility] ESR Westergren method (Bld) [Velocity]on 05-24-2024 ESR (Bld) [Velocity] 30 mm/h High 0 - 20 mm/h [facility] Interpretation and review of laboratory results Abnormal [facility] ESR (Bld) [Velocity] 30 mm/h High 0-20 [facility] Comment on above: Performed By: #### 2 4323-8 #### LINSEY Cuevas ([id number]) [facility] ([facility] [address] [place] [address] HBV surface Ab Qn (S)on Interpretation and review of laboratory results Normal [facility] HBV surface Ag IA Qlon 05-24 Interpretation and review of laboratory results Normal [facility] Hepatitis B Core Antibody, T otalon 05-24-2024 HBV core Ab Ql (S) Non-Reactive Nonreactive [facility] Hepatitis B Surface Antibody on 05-24-2024 HBV surface Ab Qn (S) NINF [facility] Comment on above: Interpretive Criteri a: <10 mIU/mL Nonreactive >=10 mIU/mL Reactive Biotin interference may cause falsely decreased results. Patients taking a Biotin dose of up to 5 mg/day should refrain from taking Biotin for 24 hours before sample collection. Providers may contact their local laboratory for further information. Hepatitis B Surface Antigeno n 05-24-2024 HBV surface Ag IA Ql Non-Reactive Nonreactive [facility] Comment on above: Biotin interference may cause falsely decreased results. Patients taking a Biotin dose of up to 5 mg/day should refrain from taking Biotin for 24 hours before sample collection. Providers may contact their local laboratory for further information. Hepatitis B virus core Abon 05-24-2024 HBV core Ab Ql (S) Non-Reactive Normal Nonreactive [facility] Comment on above: Performed By: #### 2 4325-3 #### LINSEY Cuevas ([id number]) [facility] ([facility] [address] [place], [place] [id number] Hepatitis B virus surface Ab on 05-24-2024 HBV surface Ab Qn (S) <3.1 Normal <10.0 [facility] Comment on above: Result Comment: Inte rpretive Criteria: <10 mIU/mL Nonreactive >=10 mIU/mL Reactive Biotin interference may cause falsely decreased results. Patients taking a Biotin dose of up to 5 mg/day should refrain from taking Biotin for 24 hours before sample collection. Providers may contact their local laboratory for further information. Performed By: #### 2 4323-8 #### LINSEY Cuevas ([id number]) [facility] ([facility]) [address] [place] [address] Hepatitis B virus surface Ag on 05-24-2024 HBV surface Ag IA Ql Non-Reactive Normal Nonreactive [facility] Comment on above: Result Comment: Biot in interference may cause falsely decreased results. Patients taking a Biotin dose of up to 5 mg/day should refrain from taking Biotin for 24 hours before sample collection. Providers may contact their local laboratory for further information. Performed By: #### 2 4325-3 #### LINSEY Cuevas ([id number]) [facility] ([facility]) [address] [place], [place] [id number] Hepatitis C Antibodyon 05-24 HCV Ab Ql (S) Non-Reactive Nonreactive [facility] Comment on above: Results from patient s taking biotin supplements or receiving high-dose biotin therapy should be interpreted with caution due to possible interference with this test. Providers may contact their local laboratory for further information. Hepatitis C virus Abon 05-24 HCV Ab Ql (S) Non-Reactive Normal Nonreactive [facility] Comment on above: Result Comment: Resu lts from patients taking biotin supplements or receiving high-dose biotin therapy should be interpreted with caution due to possible interference with this test. Providers may contact their local laboratory for further information. Performed By: #### 2 4325-3 #### LINSEY Cuevas ([id number]) [facility] ([facility]) [address] [place] [address] M. tuberculosis stim IFN-g a nd spot count panel (Bld)on 05-24-2024 Gamma interferon negative control spot count (Bld) [#] Passed [facility] Comment on above: Performed By: #### 2 4325-3 #### LINSEY Cuevas ([id number]) [facility] ([facility]) [id number] [place] [id number] M. tuberculosis stim IFN-g CFP10 Ag spot count (Bld) [#] 0 Normal [facility] Comment on above: Performed By: #### 2 4325-3 #### LINSEY Cuevas ([id number]) [facility] ([facility]) [address] [place], [place] [address] M. tuberculosis stim IFN-g ESAT-6 Ag spot count (Bld) [#] 0 [facility] Comment on above: Performed By: #### 2 4325-3 #### LINSEY Cuevas ([id number]) [facility] ([facility]) [address] [place] [address] M. tuberculosis stim IFN-g Ql (Bld) [Interp] Negative Normal Negative [facility] Comment on above: Result Comment: A negative test result does not exclude the possibility of exposure to or infection with Mycobacterium tuberculosis (M. tuberculosis). Patients with recent exposure to TB infected individuals exhibiting a negative T-SPOT.TB result should be considered for retesting within 6 weeks or if other relevant clinical symptoms indicate. Results from T-SPOT.TB testing must be used in conjunction with each individual's epidemiological history, current medical status, and results of other diagnostic evaluations. The T-SPOT.TB test is qualitative and results are reported as positive, borderline, or negative, given that the test controls perform as expected. In line with the Centers for Disease Control and Prevention's 2010 recommendation to report quantitative measurements alongside the qualitative result, the laboratory provides spot counts for informational purposes only. The T-SPOT.TB test should not be interpreted as a quantitative test. Performed By: #### 2 4325-3 #### LINSEY Cuevas ([id number]) [facility] ([facility]) [address] [place], [place] [id number] Mitogen stimulated gamma interferon positive control spot count (Bld) [#] Passed Normal [facility] Comment on above: Result Comment: For additional information, please refer to http://education.[employer]/faq/ENT200 (This link is being provided for informational/ educational purposes only.) Performed By: #### 2 4325-3 #### LINSEY Cuevas ([id number]) [facility] ([facility]) [id number] [place] [address] No Panel Informationon 05-24 Interpretation and review of laboratory results Normal [facility] TPMT GENETICSon 05-24-2024 SCAN RESULT See Scanned Result Normal [facility] Comment on above: Performed By: #### 2 4325-3 #### LINSEY Cuevas ([id number]) [facility] ([facility]) [address] [place], [place] [id number] COLONOSCOPYon 04-26-2024 Colonoscopy Table formatting fro m the original result was not included. Impression Moderate erythematous, granular mucosa with loss of vascular pattern in the terminal ileum; performed cold forceps biopsy to rule out IBD Erythematous, granular mucosa with loss of vascular pattern; performed cold forceps biopsies Severe granular mucosa with loss of vascular pattern in the descending colon; performed cold forceps biopsy to rule out IBD Severe erythematous, granular, ulcerated mucosa with loss of vascular pattern in the rectosigmoid; performed cold forceps biopsy to rule out IBD Findings Moderate, generalized erythematous and granular mucosa with loss of vascular pattern in the terminal ileum; performed cold forceps biopsy to rule out IBD. Erythematous without ulcerations. Generalized erythematous and granular mucosa with loss of vascular pattern in the ascending colon; performed cold forceps biopsy to rule out IBD Generalized erythematous and granular mucosa with loss of vascular pattern in the transverse colon; performed cold forceps biopsy Severe, generalized granular mucosa with loss of vascular pattern that did not appear erythematous in the descending colon; performed cold forceps biopsy to rule out IBD Severe, generalized erythematous, granular and ulcerated mucosa with loss of vascular pattern in the rectosigmoid; performed cold forceps biopsy to rule out IBD. Linear ulcerations. Overall and in the view of perianal abscesses this is consistent with Crohns disease. Recommendation Await pathology results Follow up with primary electrical and instrumentation mechanic Repeat colonoscopy in 1 year, due: 04/26/2025 Indication Inflammatory bowel disease Staff Staff Role Toby Zhou MD Proceduralist Medications See Anesthesia Record. Preprocedure A history and physical has been performed, and patient medication allergies have been reviewed. The patient's tolerance of previous anesthesia has been reviewed. The risks and benefits of the procedure and the sedation options and risks were discussed with the patient. All questions were answered and informed consent obtained. Details of the Procedure The patient underwent monitored anesthesia care, which was administered by an anesthesia professional. The patient's blood pressure, ECG, ETCO2, heart rate, level of consciousness, oxygen and respirations were monitored throughout the procedure. A digital rectal exam was performed. A perianal exam was performed. The scope was introduced through the anus and advanced to the terminal ileum. Retroflexion was not performed due to altered anatomy. The quality of bowel preparation was evaluated using the [place] Bowel Preparation Scale with scores of: right colon = 3, transverse colon = 3, left colon = 3. The total BBPS score was 9. Bowel prep was adequate. The patient experienced no blood loss. The procedure was not difficult. The patient tolerated the procedure well. There were no apparent adverse events. Events Procedure Events Event Event Time ENDO SCOPE IN TIME 04/26/2024 11:31 AM ENDO CECUM REACHED 04/26/2024 11:35 AM ENDO SCOPE OUT TIME 04/26/2024 11:49 AM Specimens ID Type Source Tests Collected by Time 1 : r/o IBD Tissue TERMINAL ILEUM BIOPSY SURGICAL PATHOLOGY EXAM Madison Vallejo MA 04/26/2024 1143 2 : Tissue COLON - ASCENDING POLYP SURGICAL PATHOLOGY EXAM Madison Vallejo MA 04/26/2024 1143 3 : Tissue COLON - TRANSVERSE BIOPSY SURGICAL PATHOLOGY EXAM Madison Vallejo MA 04/26/2024 1144 4 : Tissue COLON - DESCENDING BIOPSY SURGICAL PATHOLOGY EXAM Madison Vallejo MA 04/26/2024 1145 5 : Tissue COLON - SIGMOID BIOPSY SURGICAL PATHOLOGY EXAM Madison Vallejo MA 04/26/2024 1145 6 : Tissue RECTUM BIOPSY SURGICAL PATHOLOGY EXAM Madison Vallejo MA 04/26/2024 1147 Procedure Location [facility] External Facility [facility] [address] [facility] [address] Referring Provider Maureen Ta MD Procedure Provider Toby Zhou MD [facility] Surgical pathology studyon 0 04-26-2024 Surgical pathology study Pathology report.total SEE COMMENT Surgical Pathology Case: [id number] Authorizing Provider: Toby Zhou MD Collected: 04/26/2024 1143 Ordering Location: [facility] Received: 04/27/2024 1206 Pathologist: Ruth White MD Specimens: A) - TERMINAL ILEUM BIOPSY, r/o IBD B) - COLON - ASCENDING POLYP C) - COLON - TRANSVERSE BIOPSY D) - COLON - DESCENDING BIOPSY E) - COLON - SIGMOID BIOPSY F) - RECTUM BIOPSY Path report.final diagnosis SEE COMMENT A. TERMINAL ILEUM BIOPSY: --CHRONIC ACTIVE ENTERITIS --GRANULOMA OR PYLORIC GLAND METAPLASIA ARE NOT IDENTIFIED B. COLON, ASCENDING COLON BIOPSY: --CHRONIC ACTIVE COLITIS --GRANULOMA OR DYSPLASIA ARE NOT IDENTIFIED C. COLON, TRANSVERSE COLON BIOPSY: --CHRONIC ACTIVE COLITIS WITH CRYPTITIS AND CRYPT ABSCESSES --GRANULOMA OR DYSPLASIA ARE NOT IDENTIFIED D. COLON, DESCENDING COLON BIOPSY: --CHRONIC ACTIVE COLITIS WITH CRYPTITIS AND CRYPT ABSCESSES --GRANULOMA OR DYSPLASIA ARE NOT IDENTIFIED E. COLON, SIGMOID COLON BIOPSY: --CHRONIC ACTIVE COLITIS --GRANULOMA OR DYSPLASIA ARE NOT IDENTIFIED F. RECTUM BIOPSY: --CHRONIC ACTIVE COLITIS --GRANULOMA OR DYSPLASIA ARE NOT IDENTIFIED Laboratory comment By the signature on this report, the individual or group listed as making the Final Interpretation/Diagnos is certifies that they have reviewed this case. Path report.gross observation SEE COMMENT A: Received in formalin, labeled with the patient's name and hospital number and 1, terminal ileum biopsy, are multiple fragments of frausto, soft tissue aggregating to 0.9 x 0.3 x 0.3 cm. The specimen is submitted in toto in one cassette. BMG/SBS B: Received in formalin, labeled with the patient's name and hospital number and 2, ascending colon polyp, are multiple fragments of frausto, soft tissue aggregating to 0.8 x 0.3 x 0.3 cm. The specimen is submitted in toto in one cassette. BMG/SBS C: Received in formalin, labeled with the patient's name and hospital number and 3, transverse colon biopsy, are two fragments of frausto, soft tissue aggregating to 0.4 x 0.3 x 0.3 cm. The specimen is submitted in toto in one cassette. BMG/SBS D: Received in formalin, labeled with the patient's name and hospital number and 4, descending colon biopsy, are two fragments of frausto, soft tissue aggregating to 0.6 x 0.3 x 0.3 cm. The specimen is submitted in toto in one cassette. BMG/SBS E: Received in formalin, labeled with the patient's name and hospital number and 5, sigmoid biopsy, are multiple fragments of frausto, soft tissue aggregating to 1.1 x 0.3 x 0.3 cm. The specimen is submitted in toto in one cassette. BMG/SBS F: Received in formalin, labeled with the patient's name and hospital number and rectum biopsy, are two fragments of frausto, soft tissue aggregating to 0.7 by 0.2 x 0.2 cm. The specimen is submitted in toto in one cassette. BMG/SBS Normal [facility] C reactive proteinon 024 CRP [Mass/Vol] 0.58 mg/dL Normal <1.00 [facility] Comment on above: Performed By: #### 2 4323-8 #### LINSEY Cuevas ([id number]) [facility] ([facility] [address] [place] [address] Calprotectinon 03-15-2024 Calprotectin (Stl) [Mass/Mass] 974 ug/g High <=49 [facility] Comment on above: Result Comment: REFE RENCE INTERVAL: Calprotectin, Fecal by Immunoassay Less than 50 ug/g.........Normal 50-120 ug/g...............Borderline elevated, test should be re-evaluated in 4-6 weeks. 121 ug/g or greater.......Elevated Performed By: [facility] [address] [place] [address] Supervisor Soldering: Jaylon Owusu MD, PhD CLIA Number: [id number] Performed By: #### 2 4323-8 #### LINSEY Cuevas ([id number]) [facility] ([facility]) [address] [place] [address] CBC panel Auto (Bld)on 02-23 Erythrocyte distribution width (RBC) [Ratio] 18.0 % High 11.5 - 14.5 % [facility] Hematocrit (Bld) [Volume fraction] 24.9 % Low 36.0 - 46.0 % [facility] Hemoglobin (Bld) [Mass/Vol] 7.5 g/dL Low 12.0 - 16.0 g/dL [facility] Interpretation and review of laboratory results Abnormal [facility] MCH (RBC) [Entitic mass] 23.3 pg Low 26.0 - 34.0 pg [facility] MCHC (RBC) [Mass/Vol] 30.1 g/dL Low 32.0 - 36.0 g/dL [facility] MCV (RBC) [Entitic vol] 77 fL Low 80 - 100 fL [facility] Nucleated RBC/100 WBC (Bld) [Ratio] 0.0 % [facility] Platelets (Bld) [#/Vol] 352 10*3/uL [facility] RBC (Bld) [#/Vol] 3.22 10*6/uL [facility] WBC (Bld) [#/Vol] 8.6 10*3/uL [facility] Erythrocyte distribution width (RBC) [Ratio] 18.0 % High 11.5-14.5 [facility] Comment on above: Performed By: #### 5 8410-2 ####LINSEY Cuevas ([id number])[facility] ([facility])[address] [place] [address] Hematocrit (Bld) [Volume fraction] 24.9 % Low 36.0-46.0 [facility] Comment on above: Performed By: #### 5 8410-2 ####LINSEY Cuevas ([id number])[facility] ([facility])[address] [place] [address] Hemoglobin (Bld) [Mass/Vol] 7.5 g/dL Low 12.0-16.0 [facility] Comment on above: Performed By: #### 5 8410-2 ####LINSEY Cuevas ([id number])[facility] ([facility])[address] [place] [address] MCH (RBC) [Entitic mass] 23.3 pg Low 26.0-34.0 [facility] Comment on above: Performed By: #### 5 8410-2 ####LINSEY Cuevas ([id number])[facility] ([facility])[address] [place] [address] MCHC (RBC) [Mass/Vol] 30.1 g/dL Low 32.0-36.0 [facility] Comment on above: Performed By: #### 5 8410-2 ####LINSEY Cuevas ([id number])[facility] ([facility])[address] [place] [address] MCV (RBC) [Entitic vol] 77 fL Low 80-100 [facility] Comment on above: Performed By: #### 5 8410-2 ####LINSEY Cuevas ([id number])[facility] ([facility])[address] [place] [address] Nucleated RBC/100 WBC (Bld) [Ratio] 0.0 /100 WBCs Normal 0.0-0.0 [facility] Comment on above: Performed By: #### 5 8410-2 ####LINSEY Cuevas ([id number])[facility] ([facility])[address] [place] [address] Platelets (Bld) [#/Vol] 352 x10*3/uL Normal 150-450 [facility] Comment on above: Performed By: #### 5 8410-2 ####LINSEY Cuevas ([id number])[facility] ([facility])[address] [place] [address] RBC (Bld) [#/Vol] 3.22 x10*6/uL Low 4.00-5.20 [facility] Comment on above: Performed By: #### 5 8410-2 ####LINSEY Cuevas ([id number])[facility] ([facility])[address] [place] [address] WBC (Bld) [#/Vol] 8.6 x10*3/uL Normal 4.4-11.3 [facility] Comment on above: Performed By: #### 5 8410-2 ####LINSEY Cuevas ([id number])[facility] ([facility])[address] [place] [address] Fungal Culture/SmearOrdered By: Marion Marin on 02-24-2024 Fungus identified Cx Nom (Unsp spec) 4 colonies Eugenia albicans Abnormal [facility] Fungus identified Cx Nom (Un sp spec)Ordered By: Marion Marin on 02-24-2024 Fungus identified Fungus stain Nom (Unsp spec) No fungal elements seen [facility] Interpretation and review of laboratory results Abnormal [facility] Haptoglobinon 02-24-2024 Haptoglobin [Mass/Vol] 534 mg/dL High 37 - 246 mg/dL [facility] Comment on above: Hemolysis Haptoglobin [Mass/Vol]on Interpretation and review of laboratory results Abnormal [facility] Magnesiumon 02-24-2024 Magnesium [Mass/Vol] 1.99 mg/dL 1.60 - 2.40 mg/dL [facility] Magnesium [Mass/Vol] 1.99 mg/dL Normal 1.60-2.40 [facility] Comment on above: Performed By: #### 2 4323-8 #### LINSEY Cuevas ([id number]) [facility] ([facility]) [address] [place] [address] Magnesium [Mass/Vol]on 02-23 Interpretation and review of laboratory results Normal [facility] No Panel Informationon 02-23 [facility] Renal function 2000 panelon 02-24-2024 Albumin BCP dye [Mass/Vol] 2.0 g/dL Low 3.4 - 5.0 g/dL [facility] Anion gap [Moles/Vol] 11 mmol/L 10 - 2 0 mmol/L [facility] Calcium [Mass/Vol] 7.5 mg/dL Low 8.6 - 10. 6 mg/dL [facility] Chloride [Moles/Vol] 102 mmol/L 98 - 10 7 mmol/L [facility] CO2 [Moles/Vol] 28 mmol/L 21 - 32 mmol/L [facility] Creatinine [Mass/Vol] 0.56 mg/dL 0.50 - 1.05 mg/dL [facility] eGFR - PINF [facility] Comment on above: Calculations of lazarus mated GFR are performed using the 2020 CKD-EPI Study Refit equation without the race variable for the IDMS-Traceable creatinine methods. https://jasn.asnjournals.org/content/early//ASN.24888 84915 Glucose [Mass/Vol] 72 mg/dL Low 74 - 99 mg/dL [facility] Interpretation and review of laboratory results Abnormal [facility] Phosphate [Mass/Vol] 3.6 mg/dL 2.5 - 4 .9 mg/dL [facility] Comment on above: The performance jake acteristics of phosphorus testing in heparinized plasma have been validated by the individual laboratory site where testing is performed. Testing on heparinized plasma is not approved by the FDA; however, such approval is not necessary. Potassium [Moles/Vol] 3.7 mmol/L 3.5 - 5.3 mmol/L [facility] Sodium [Moles/Vol] 137 mmol/L 136 - 145 mmol/L [facility] Urea nitrogen [Mass/Vol] 7 mg/dL 6 - 23 mg/dL [facility] Albumin BCP dye [Mass/Vol] 2.0 g/dL Low 3.4-5.0 [facility] Comment on above: Performed By: #### 2 4323-8 #### LINSEY Cuevas ([id number]) [facility] ([facility]) [address] [place] [address] Anion gap [Moles/Vol] 11 mmol/L Normal 10-20 [facility] Comment on above: Performed By: #### 2 4323-8 #### LINSEY Cuevas ([id number]) [facility] ([facility]) [address] [place] [address] Calcium [Mass/Vol] 7.5 mg/dL Low 8.6-10.6 [facility] Comment on above: Performed By: #### 2 4323-8 #### LINSEY Cuevas ([id number]) [facility] ([facility]) [address] [place] [address] Chloride [Moles/Vol] 102 mmol/L Normal 98-107 [facility] Comment on above: Performed By: #### 2 4323-8 #### LINSEY ESCOBAR L ([id number]) [facility] ([facility]) [address] [place] [address] CO2 [Moles/Vol] 28 mmol/L Normal 21-32 [facility] Comment on above: Performed By: #### 2 4323-8 #### LINSEY Cuevas (93949) [facility] ([facility]) [address] [place] [address] Creatinine [Mass/Vol] 0.56 mg/dL Normal 0.50-1.05 [facility] Comment on above: Performed By: #### 2 4323-8 #### LINSEY Cuevas ([id number]) [facility] ([facility]) [address] [place] [address] GFR/1.73 sq M.predicted MDRD (S/P/Bld) [Vol rate/Area] mL/min/{1.73_m2} Normal >60 [facility] Comment on above: Result Comment: Calc ulations of estimated GFR are performed using the 2020 CKD-EPI Study Refit equation without the race variable for the IDMS-Traceable creatinine methods. https://jasn.asnjournals.org/content/early//ASN.94604 24795 Performed By: #### 2 4323-8 #### LINSEY Cuevas ([id number]) [facility] ([facility] [address] [place] [address] Glucose [Mass/Vol] 72 mg/dL Low 74-99 [facility] Comment on above: Performed By: #### 2 4323-8 #### LINSEY Cuevas ([id number]) [facility] ([facility] [address] [place] [address] Phosphate [Mass/Vol] 3.6 mg/dL Normal 2.5-4.9 [facility] Comment on above: Result Comment: The performance characteristics of phosphorus testing in heparinized plasma have been validated by the individual laboratory site where testing is performed. Testing on heparinized plasma is not approved by the FDA; however, such approval is not necessary. Performed By: #### 2 4323-8 #### LINSEY Cuevas ([id number]) [facility] ([facility] [address] [place] [address] Potassium [Moles/Vol] 3.7 mmol/L Normal 3.5-5.3 [facility] Comment on above: Performed By: #### 2 4323-8 #### LINSEY Cuevas ([id number]) [facility] ([facility] [address] [place] [address] Sodium [Moles/Vol] 137 mmol/L Normal 136-145 [facility] Comment on above: Performed By: #### 2 4323-8 #### LINSEY Cuevas ([id number]) [facility] ([facility]) [address] [place] [address] Urea nitrogen [Mass/Vol] 7 mg/dL Normal 6-23 [facility] Comment on above: Performed By: #### 2 4323-8 #### LINSEY Cuevas ([id number]) [facility] ([facility]) [address] [place] [address] C. difficile toxin A+B tcdA+ tcdB genes DARREN+probe Ql (Stl)Ordered By: Kenrick Wilhelm on 02-23-2024 Interpretation and review of laboratory results Normal [facility] This test is an FDA-cleared real-time PCR assay for detection of toxigenic C. difficile DNA from unprocessed liquid or unformed stool specimens that have not undergone nucleic acid extraction in symptomatic patients with potential C. difficile infection (CDI). A positive result may indicate colonization, and clinical assessment is required for the diagnosis of CDI. This test cannot be performed on formed stools or used as a test of cure, and should not be performed more than once per 7 days. [facility] CBC panel Auto (Bld)on 02-22 Erythrocyte distribution width (RBC) [Ratio] 17.3 % High 11.5 - 14.5 % [facility] Hematocrit (Bld) [Volume fraction] 28.8 % Low 36.0 - 46.0 % [facility] Hemoglobin (Bld) [Mass/Vol] 8.5 g/dL Low 12.0 - 16.0 g/dL [facility] Interpretation and review of laboratory results Abnormal [facility] MCH (RBC) [Entitic mass] 23.1 pg Low 26.0 - 34.0 pg [facility] MCHC (RBC) [Mass/Vol] 29.5 g/dL Low 32.0 - 36.0 g/dL [facility] MCV (RBC) [Entitic vol] 78 fL Low 80 - 100 fL [facility] Nucleated RBC/100 WBC (Bld) [Ratio] 0.0 % [facility] Platelets (Bld) [#/Vol] 440 10*3/uL [facility] RBC (Bld) [#/Vol] 3.68 10*6/uL [facility] WBC (Bld) [#/Vol] 19.4 10*3/uL [facility] Erythrocyte distribution width (RBC) [Ratio] 17.3 % High 11.5-14.5 [facility] Comment on above: Performed By: #### 5 8410-2 ####LINSEY Cuevas ([id number])[facility] ([facility])[address] [place] [address] Hematocrit (Bld) [Volume fraction] 28.8 % Low 36.0-46.0 [facility] Comment on above: Performed By: #### 5 8410-2 ####LINSEY Cuevas ([id number])[facility] ([facility])[address] [place] [address] Hemoglobin (Bld) [Mass/Vol] 8.5 g/dL Low 12.0-16.0 [facility] Comment on above: Performed By: #### 5 8410-2 ####LINSEY Cuevas ([id number])[facility] ([facility])[address] [place] [address] MCH (RBC) [Entitic mass] 23.1 pg Low 26.0-34.0 [facility] Comment on above: Performed By: #### 5 8410-2 ####LINSEY Cuevas ([id number])[facility] ([facility])[address] [place] [address] MCHC (RBC) [Mass/Vol] 29.5 g/dL Low 32.0-36.0 [facility] Comment on above: Performed By: #### 5 8410-2 ####LINSEY Cuevas ([id number])[facility] ([facility])[address] [place] [address] MCV (RBC) [Entitic vol] 78 fL Low 80-100 [facility] Comment on above: Performed By: #### 5 8410-2 ####LINSEY Cuevas ([id number])[facility] ([facility])[address] [place] [address] Nucleated RBC/100 WBC (Bld) [Ratio] 0.0 /100 WBCs Normal 0.0-0.0 [facility] Comment on above: Performed By: #### 5 8410-2 ####LINSEY Cuevas (04178)[facility] ([facility])[address] [place] [address] Platelets (Bld) [#/Vol] 440 x10*3/uL Normal 150-450 [facility] Comment on above: Performed By: #### 5 8410-2 ####LINSEY Cuevas (08046)[facility] ([facility])[address] [place] [address] RBC (Bld) [#/Vol] 3.68 x10*6/uL Low 4.00-5.20 [facility] Comment on above: Performed By: #### 5 8410-2 ####LINSEY Cuevas ([id number])[facility] ([facility])[address] [place] [address] WBC (Bld) [#/Vol] 19.4 x10*3/uL High 4.4-11.3 [facility] Comment on above: Performed By: #### 5 8410-2 ####LINSEY Cuevas ([id number])[facility] ([facility])[address] [place] [address] Clostridioides difficile tox in A+B tcdA+tcdB geneson 02-23-2024 C. difficile toxin A+B tcdA+tcdB genes DARREN+probe Ql (Stl) Clostridioides difficile toxin A+B tcdA+tcdB genes Not Detected Normal Not Detected [facility] Comment on above: Order Comment: This test is an FDA-cleared real-time PCR assay for detection of toxigenic C. difficile DNA from unprocessed liquid or unformed stool specimens that have not undergone nucleic acid extraction in symptomatic patients with potential C. difficile infection (CDI). A positive result may indicate colonization, and clinical assessment is required for the diagnosis of CDI. This test cannot be performed on formed stools or used as a test of cure, and should not be performed more than once per 7 days. Performed By: #### 8 0685-1 ####LINSEY Cuevas ([id number])[facility] ([facility])[address] [place] [address] Cobalamin (Vitamin B12) [Mas s/Vol]on 02-23-2024 Interpretation and review of laboratory results Abnormal [facility] Cobalaminson 02-23-2024 Cobalamin (Vitamin B12) [Mass/Vol] pg/mL High 211-911 [facility] Comment on above: Performed By: #### 2 132-9 ####LINSEY Cuevas (50134)[facility] ([facility])[address] [place] [address] Folateon 02-23-2024 Folate [Mass/Vol] 9.2 ng/mL 5.0 - PINF ng/mL [facility] Folate [Mass/Vol] 9.2 ng/mL Normal >5.0 [facility] Comment on above: Order Comment: Low < 3.4Borderline 3.4-5.0Normal >5.0Patients receiving more than 5 mg/day of biotin may have interference in test results. A sample should be taken no sooner than eight hours after previous dose. Contact the testing laboratory for additional information. Performed By: #### 2 284-8 ####LINSEY Cuevas ([id number])[facility] ([facility])[address] [place] [address] Folate [Mass/Vol]on 02-23-20 Interpretation and review of laboratory results Normal [facility] Low <3.4 Borderline 3.4-5.0 Normal >5.0 Patients receiving more than 5 mg/day of biotin may have interference in test results. A sample should be taken no sooner than eight hours after previous dose. Contact the testing laboratory for additional information. [facility] Haptoglobinon 02-23-2024 Haptoglobin [Mass/Vol] 534 mg/dL High 37-246 [facility] Comment on above: Result Comment: Hemo lysis Performed By: #### 2 4323-8 #### LINSEY Cuevas ([id number]) [facility] ([facility] [address] [place] [address] Magnesiumon 02-23-2024 Magnesium [Mass/Vol] 2.28 mg/dL 1.60 - 2.40 mg/dL [facility] Magnesium [Mass/Vol] 2.28 mg/dL Normal 1.60-2.40 [facility] Comment on above: Performed By: #### 1 9123-9 ####LINSEY Cuevas ([id number])[facility] ([facility])[address] [place] [address] Magnesium [Mass/Vol]on 02-22 Interpretation and review of laboratory results Normal [facility] No Panel Informationon 02-22 Blood Expiration Date March 07, 2024 23:5 9 EDT [facility] PRODUCT BLOOD TYPE 8400 [address] [facility] PRODUCT CODE [id number] [facility] Unit ABO AB [facility] Unit RH Positive [facility] UNIT VOLUME 350 [facility] XM INTEP COMP [facility] Prepare RBC: 1 Unitson 02-22 Unit Number [id number] [facility] Unit Number [id number] [facility] Renal function 2000 panelon 02-23-2024 Albumin BCP dye [Mass/Vol] 2.3 g/dL Low 3.4 - 5.0 g/dL [facility] Anion gap [Moles/Vol] 15 mmol/L 10 - 2 0 mmol/L [facility] Calcium [Mass/Vol] 8.1 mg/dL Low 8.6 - 10. 6 mg/dL [facility] Chloride [Moles/Vol] 101 mmol/L 98 - 10 7 mmol/L [facility] CO2 [Moles/Vol] 24 mmol/L 21 - 32 mmol/L [facility] Creatinine [Mass/Vol] 0.59 mg/dL 0.50 - 1.05 mg/dL [facility] eGFR - PINF [facility] Comment on above: Calculations of lazarus mated GFR are performed using the 2020 CKD-EPI Study Refit equation without the race variable for the IDMS-Traceable creatinine methods. https://jasn.asnjournals.org/content/early/ASN.69291 32207 Glucose [Mass/Vol] 80 mg/dL 74 - 99 mg/dL [facility] Interpretation and review of laboratory results Abnormal [facility] Phosphate [Mass/Vol] 3.7 mg/dL 2.5 - 4 .9 mg/dL [facility] Comment on above: The performance jake acteristics of phosphorus testing in heparinized plasma have been validated by the individual laboratory site where testing is performed. Testing on heparinized plasma is not approved by the FDA; however, such approval is not necessary. Potassium [Moles/Vol] 4.3 mmol/L 3.5 - 5.3 mmol/L [facility] Sodium [Moles/Vol] 136 mmol/L 136 - 145 mmol/L [facility] Urea nitrogen [Mass/Vol] 8 mg/dL 6 - 23 mg/dL [facility] Albumin BCP dye [Mass/Vol] 2.3 g/dL Low 3.4-5.0 [facility] Comment on above: Performed By: #### 2 4362-6 ####LINSEY Cuevas ([id number])[facility] ([facility])[address] [place] [address] Anion gap [Moles/Vol] 15 mmol/L Normal 10-20 [facility] Comment on above: Performed By: #### 2 4362-6 ####LINSEY Cuevas ([id number])[facility] ([facility])[address] [place] [address] Calcium [Mass/Vol] 8.1 mg/dL Low 8.6-10.6 [facility] Comment on above: Performed By: #### 2 4362-6 ####LINSEY Cuevas ([id number])[facility] ([facility])[address] [place] [address] Chloride [Moles/Vol] 101 mmol/L Normal 98-107 [facility] Comment on above: Performed By: #### 2 4362-6 ####LINSEY ESCOBAR L ([id number])[facility] ([facility])[address] [place] [address] CO2 [Moles/Vol] 24 mmol/L Normal 21-32 [facility] Comment on above: Performed By: #### 2 4362-6 ####LINSEY Cuevas ([id number])[facility] ([facility])[address] [place] [address] Creatinine [Mass/Vol] 0.59 mg/dL Normal 0.50-1.05 [facility] Comment on above: Performed By: #### 2 4362-6 ####LINSEY Cuevas ([id number])[facility] ([facility])[address] [place] [address] GFR/1.73 sq M.predicted MDRD (S/P/Bld) [Vol rate/Area] mL/min/{1.73_m2} Normal >60 [facility] Comment on above: Result Comment: Calc ulations of estimated GFR are performed using the 2020 CKD-EPI Study Refit equation without the race variable for the IDMS-Traceable creatinine methods. https://jasn.asnjournals.org/content/early//ASN.70878 50973 Performed By: #### 2 4362-6 ####LINSEY Cuevas ([id number])[facility] ([facility])[address] [place] [address] Glucose [Mass/Vol] 80 mg/dL Normal 74-99 [facility] Comment on above: Performed By: #### 2 4362-6 ####LINSEY Cuevas ([id number])[facility] ([facility])[address] [place] [address] Phosphate [Mass/Vol] 3.7 mg/dL Normal 2.5-4.9 [facility] Comment on above: Result Comment: The performance characteristics of phosphorus testing in heparinized plasma have been validated by the individual laboratory site where testing is performed. Testing on heparinized plasma is not approved by the FDA; however, such approval is not necessary. Performed By: #### 2 4362-6 ####LINSEY Cuevas ([id number])[facility] ([facility])[address] [place] [address] Potassium [Moles/Vol] 4.3 mmol/L Normal 3.5-5.3 [facility] Comment on above: Performed By: #### 2 4362-6 ####LINSEY Cuevas ([id number])[facility] ([facility])[address] [place] [address] Sodium [Moles/Vol] 136 mmol/L Normal 136-145 [facility] Comment on above: Performed By: #### 2 4362-6 ####LINSEY Cuevas ([id number])[facility] ([facility])[address] [place] [address] Urea nitrogen [Mass/Vol] 8 mg/dL Normal 6-23 [facility] Comment on above: Performed By: #### 2 4362-6 ####LINSEY Cuevas ([id number])[facility] ([facility])[address] [place] [address] Vitamin B12on 02-23-2024 Cobalamin (Vitamin B12) [Mass/Vol] pg/mL High 211 - 911 pg/mL [facility] CBC panel Auto (Bld)on 02-21 Erythrocyte distribution width (RBC) [Ratio] 17.1 % High 11.5 - 14.5 % [facility] Hematocrit (Bld) [Volume fraction] 22.4 % Low 36.0 - 46.0 % [facility] Hemoglobin (Bld) [Mass/Vol] 6.4 g/dL Critically low 12.0 - 16.0 g/dL [facility] Interpretation and review of laboratory results Abnormal [facility] MCH (RBC) [Entitic mass] 22.3 pg Low 26.0 - 34.0 pg [facility] MCHC (RBC) [Mass/Vol] 28.6 g/dL Low 32.0 - 36.0 g/dL [facility] MCV (RBC) [Entitic vol] 78 fL Low 80 - 100 fL [facility] Nucleated RBC/100 WBC (Bld) [Ratio] 0.0 % [facility] Platelets (Bld) [#/Vol] 376 10*3/uL [facility] RBC (Bld) [#/Vol] 2.87 10*6/uL Low [facility] WBC (Bld) [#/Vol] 18.3 10*3/uL High [facility] Erythrocyte distribution width (RBC) [Ratio] 17.1 % High 11.5-14.5 [facility] Comment on above: Performed By: #### 3 4529-8 #### LINSEY Cuevas ([id number]) [facility] ([facility]) [address] [place] [address]29 Hematocrit (Bld) [Volume fraction] 22.4 % Low 36.0-46.0 [facility] Comment on above: Performed By: #### 3 4529-8 #### LINSEY Cuevas ([id number]) [facility] ([facility]) [address] [place] [address] 12742 Hemoglobin (Bld) [Mass/Vol] 6.4 g/dL Critically low 12.0-16.0 [facility] Comment on above: Performed By: #### 3 4529-8 #### LINSEY Cuevas ([id number]) [facility] ([facility]) [address] [place] [address] 34194 MCH (RBC) [Entitic mass] 22.3 pg Low 26.0-34.0 [facility] Comment on above: Performed By: #### 3 4529-8 #### LINSEY Cuevas ([id number]) [facility] ([facility]) [address] [place] [address] 16211 MCHC (RBC) [Mass/Vol] 28.6 g/dL Low 32.0-36.0 [facility] Comment on above: Performed By: #### 3 4529-8 #### LINSEY Cuevas ([id number]) [facility] ([facility]) [address] [place] [address] 69247 MCV (RBC) [Entitic vol] 78 fL Low 80-100 [facility] Comment on above: Performed By: #### 3 4529-8 #### LINSEY Cuevas ([id number]) [facility] ([facility]) [address] [place] [address] 39098 Nucleated RBC/100 WBC (Bld) [Ratio] 0.0 /100 WBCs Normal 0.0-0.0 [facility] Comment on above: Performed By: #### 3 4529-8 #### LINSEY Cuevas ([id number]) [facility] ([facility]) [address] [place] [address] Platelets (Bld) [#/Vol] 376 x10*3/uL Normal 150-450 [facility] Comment on above: Performed By: #### 3 4529-8 #### LINSEY Cuevas ([id number]) [facility] ([facility]) [address] [place] [address] RBC (Bld) [#/Vol] 2.87 x10*6/uL Low 4.00-5.20 [facility] Comment on above: Performed By: #### 3 4529-8 #### LINSEY Cuevas ([id number]) [facility] ([facility]) [address] [place] [address]555 WBC (Bld) [#/Vol] 18.3 x10*3/uL High 4.4-11.3 [facility] Comment on above: Performed By: #### 3 4529-8 #### LINSEY Cuevas ([id number]) [facility] ([facility]) [address] [place] [address] 42854 Comprehensive metabolic 2000 panelon 02-22-2024 Albumin BCP dye [Mass/Vol] 2.0 g/dL Low 3.4 - 5.0 g/dL [facility] ALP [Catalytic activity/Vol] 94 U/L 33 - 110 U/L [facility] ALT With P-5'-P [Catalytic activity/Vol] 21 U/L 7 - 45 U/L [facility] Comment on above: Patients treated wit h Sulfasalazine may generate falsely decreased results for ALT. Anion gap [Moles/Vol] 10 mmol/L 10 - 2 0 mmol/L [facility] AST With P-5'-P [Catalytic activity/Vol] 19 U/L 9 - 39 U/L [facility] Bilirubin [Mass/Vol] 0.4 mg/dL 0.0 - 1 .2 mg/dL [facility] Calcium [Mass/Vol] 7.7 mg/dL Low 8.6 - 10. 6 mg/dL [facility] Chloride [Moles/Vol] 101 mmol/L 98 - 10 7 mmol/L [facility] CO2 [Moles/Vol] 28 mmol/L 21 - 32 mmol/L [facility] Creatinine [Mass/Vol] 0.64 mg/dL 0.50 - 1.05 mg/dL [facility] eGFR - PINF [facility] Comment on above: Calculations of lazarus mated GFR are performed using the 2020 CKD-EPI Study Refit equation without the race variable for the IDMS-Traceable creatinine methods. https://jasn.asnjournals.org/content/early//ASN.22133 33819 Glucose [Mass/Vol] 133 mg/dL High 74 - 99 mg/dL [facility] Interpretation and review of laboratory results Abnormal [facility] Potassium [Moles/Vol] 3.3 mmol/L Low 3.5 - 5.3 mmol/L [facility] Protein [Mass/Vol] 5.4 g/dL Low 6.4 - 8.2 g/dL [facility] Sodium [Moles/Vol] 136 mmol/L 136 - 145 mmol/L [facility] Urea nitrogen [Mass/Vol] 9 mg/dL 6 - 23 mg/dL [facility] Albumin BCP dye [Mass/Vol] 2.0 g/dL Low 3.4-5.0 [facility] Comment on above: Performed By: #### 3 4529-8 #### LINSEY Cuevas ([id number]) [facility] ([facility]) [address] [place] [address] ALP [Catalytic activity/Vol] 94 U/L Normal 33-110 [facility] Comment on above: Performed By: #### 3 4529-8 #### LINSEY Cuevas ([id number]) [facility] ([facility]) [address] [place] [address] ALT With P-5'-P [Catalytic activity/Vol] 21 U/L Normal 7-45 [facility] Comment on above: Result Comment: Jade ents treated with Sulfasalazine may generate falsely decreased results for ALT. Performed By: #### 3 4529-8 #### LINSEY Cuevas ([id number]) [facility] ([facility]) [address] [place] [address] Anion gap [Moles/Vol] 10 mmol/L Normal 10-20 [facility] Comment on above: Performed By: #### 3 4529-8 #### LINSEY Cuevas ([id number]) [facility] ([facility]) [address] [place] [address] AST With P-5'-P [Catalytic activity/Vol] 19 U/L Normal 9-39 [facility] Comment on above: Performed By: #### 3 4529-8 #### LINSEY Cuevas ([id number]) [facility] ([facility]) [address] [place] [address]29 Bilirubin [Mass/Vol] 0.4 mg/dL Normal 0.0-1.2 [facility] Comment on above: Performed By: #### 3 4529-8 #### LINSEY Cuevas ([id number]) [facility] ([facility]) [id number] [place] [address]64 Calcium [Mass/Vol] 7.7 mg/dL Low 8.6-10.6 [facility] Comment on above: Performed By: #### 3 4529-8 #### LINSEY Cuevas ([id number]) [facility] ([facility]) [address] [place] [address] 92567 Chloride [Moles/Vol] 101 mmol/L Normal 98-107 [facility] Comment on above: Performed By: #### 3 4529-8 #### LINSEY Cuevas ([id number]) [facility] ([facility]) [address] [place] [address] 58565 CO2 [Moles/Vol] 28 mmol/L Normal 21-32 [facility] Comment on above: Performed By: #### 3 4529-8 #### LINSEY Cuevas ([id number]) [facility] ([facility]) [address] [place] [address] Creatinine [Mass/Vol] 0.64 mg/dL Normal 0.50-1.05 [facility] Comment on above: Performed By: #### 3 4529-8 #### LINSEY Cuevas ([id number]) [facility] ([facility]) [address] [place] [address]29[address] GFR/1.73 sq M.predicted MDRD (S/P/Bld) [Vol rate/Area] mL/min/{1.73_m2} Normal >60 [facility] Comment on above: Result Comment: Calc ulations of estimated GFR are performed using the 2020 CKD-EPI Study Refit equation without the race variable for the IDMS-Traceable creatinine methods. https://jasn.asnjournals.org/content//ASN.67170 10941 Performed By: #### 3 4529-8 #### LINSEY Cuevas ([id number]) [facility] ([facility]) [address] [place] [address] 57365 Glucose [Mass/Vol] 133 mg/dL High 74-99 [facility] Comment on above: Performed By: #### 3 4529-8 #### LINSEY Cuevas ([id number]) [facility] ([facility]) [address] [place] [address] 09304 Potassium [Moles/Vol] 3.3 mmol/L Low 3.5-5.3 [facility] Comment on above: Performed By: #### 3 4529-8 #### LINSEY Cuevas ([id number]) [facility] ([facility]) [address] [place] [address] 56726 Protein [Mass/Vol] 5.4 g/dL Low 6.4-8.2 [facility] Comment on above: Performed By: #### 3 4529-8 #### LINSEY Cuevas ([id number]) [facility] ([facility]) [address] [place] [address] 34038 Sodium [Moles/Vol] 136 mmol/L Normal 136-145 [facility] Comment on above: Performed By: #### 3 4529-8 #### LINSEY Cuevas ([id number]) [facility] ([facility]) [address] [place] [address] 15925 Urea nitrogen [Mass/Vol] 9 mg/dL Normal - [facility] Comment on above: Performed By: #### 3 4529-8 #### LINSEY Cuevas ([id number]) [facility] ([facility]) [address] [place] [address] 68950 ECG 12-LEADon 02-22-2024 ECG 12-LEAD Ventricular Rate 102 Atrial Rate 102 P-R Interval 146 QRS Duration 76 Q-T Interval 332 QTC Calculation(Bazett) 432 P Conyers 65 R Conyers 67 T Conyers 58 QRS Count 17 Q Onset 226 P Onset 153 P Offset 198 T Offset 392 QTC Fredericia 396 Diagnosis Sinus tachycardia Otherwise normal ECG Confirmed by Kasi Coker ([id number]) on 03/07/2024 2:51:44 PM Normal [facility] Ferritinon 02-22-2024 Ferritin [Mass/Vol] 273 ng/mL High 8 - 150 ng/mL [facility] Ferritin [Mass/Vol] 273 ng/mL High 8-150 [facility] Comment on above: Performed By: #### 3 4529-8 #### LINSEY Cuevas ([id number]) [facility] ([facility]) [address] [place] [address] 87778 Ferritin [Mass/Vol]on 2023 Interpretation and review of laboratory results Abnormal [facility] Iron and Iron binding capaci ty panelon 02-22-2024 Interpretation and review of laboratory results Abnormal [facility] Iron [Mass/Vol] 19 ug/dL Low 35 - 150 ug/dL [facility] Iron binding capacity [Mass/Vol] 182 ug/dL Low 240 - 445 ug/dL [facility] Iron binding capacity.unsaturated [Mass/Vol] 163 ug/dL 110 - 370 ug/dL [facility] Iron saturation [Mass fraction] 10 % Low 25 - 45 % [facility] LDH Lactate to pyruvate reac tion [Catalytic activity/Vol]on 02-22-2024 Interpretation and review of laboratory results Normal [facility] Lactate dehydrogenaseon LDH Lactate to pyruvate reaction [Catalytic activity/Vol] 181 U/L 84 - 246 U/L [facility] LDH Lactate to pyruvate reaction [Catalytic activity/Vol] 181 U/L Normal 84-246 [facility] Comment on above: Performed By: #### 1 4804-9 ####LINSEY Cuevas ([id number])[facility] ([facility])[address] [place] [address] Magnesiumon 02-22-2024 Magnesium [Mass/Vol] 1.97 mg/dL 1.60 - 2.40 mg/dL [facility] Magnesium [Mass/Vol] 1.97 mg/dL Normal 1.60-2.40 [facility] Comment on above: Performed By: #### 3 4529-8 #### LINSEY Cuevas ([id number]) [facility] ([facility] [address] [place] [address] Magnesium [Mass/Vol] 1.76 mg/dL 1.60 - 2.40 mg/dL [facility] Magnesium [Mass/Vol]on 02-21 Interpretation and review of laboratory results Normal [facility] No Panel Informationon 02-21 [facility] Interpretation and review of laboratory results Normal [facility] PT and aPTT panel Coag (PPP) on 02-22-2024 aPTT Coag (PPP) [Time] 31 s Un [facility] INR Coag (PPP) [Relative time] 1.7 {INR} High 0.9 - 1.1 [facility] Interpretation and review of laboratory results Abnormal [facility] PT Coag (PPP) [Time] 19.4 s High [facility] The APTT is no longe r used for monitoring Unfractionated Heparin Therapy. For monitoring Heparin Therapy, use the Heparin Assay. [facility] aPTT Coag (PPP) [Time] 31 s Normal 27-38 [facility] Comment on above: Order Comment: The A PTT is no longer used for monitoring Unfractionated Heparin Therapy. For monitoring Heparin Therapy, use the Heparin Assay. Performed By: #### 3 4529-8 #### LINSEY Cuevas ([id number]) [facility] ([facility]) [address] [place] [address] 48466 INR Coag (PPP) [Relative time] 1.7 High 0.9-1.1 [facility] Comment on above: Order Comment: The A PTT is no longer used for monitoring Unfractionated Heparin Therapy. For monitoring Heparin Therapy, use the Heparin Assay. Performed By: #### 3 4529-8 #### LINSEY Cuevas ([id number]) [facility] ([facility]) [address] [place] [address] 26645 PT Coag (PPP) [Time] 19.4 s High 9.8-12.8 [facility] Comment on above: Order Comment: The A PTT is no longer used for monitoring Unfractionated Heparin Therapy. For monitoring Heparin Therapy, use the Heparin Assay. Performed By: #### 3 4529-8 #### LINSEY Cuevas ([id number]) [facility] ([facility]) [address] [place] [address] 95179 Phosphateon 02-22-2024 Phosphate [Mass/Vol] 3.7 mg/dL Normal 2.5-4.9 [facility] Comment on above: Result Comment: The performance characteristics of phosphorus testing in heparinized plasma have been validated by the individual laboratory site where testing is performed. Testing on heparinized plasma is not approved by the FDA; however, such approval is not necessary. Performed By: #### 3 4529-8 #### LINSEY Cuevas ([id number]) [facility] ([facility]) [address] [place] [address] 90787 Phosphoruson 02-22-2024 Phosphate [Mass/Vol] 3.7 mg/dL 2.5 - 4 .9 mg/dL [facility] Comment on above: The performance jake acteristics of phosphorus testing in heparinized plasma have been validated by the individual laboratory site where testing is performed. Testing on heparinized plasma is not approved by the FDA; however, such approval is not necessary. Renal function 2000 panelon 06-05-2024 Albumin BCP dye [Mass/Vol] 2.2 g/dL Low 3.4 - 5.0 g/dL [facility] Anion gap [Moles/Vol] 16 mmol/L 10 - 2 0 mmol/L [facility] Calcium [Mass/Vol] 7.7 mg/dL Low 8.6 - 10. 6 mg/dL [facility] Chloride [Moles/Vol] 101 mmol/L 98 - 10 7 mmol/L [facility] CO2 [Moles/Vol] 22 mmol/L 21 - 32 mmol/L [facility] Creatinine [Mass/Vol] 0.67 mg/dL 0.50 - 1.05 mg/dL [facility] eGFR - PINF [facility] Comment on above: Calculations of lazarus mated GFR are performed using the 2020 CKD-EPI Study Refit equation without the race variable for the IDMS-Traceable creatinine methods. https://jasn.asnjournals.org/content/early/ASN.96667 11530 Glucose [Mass/Vol] 117 mg/dL High 74 - 99 mg/dL [facility] Interpretation and review of laboratory results Abnormal [facility] Phosphate [Mass/Vol] 4.1 mg/dL 2.5 - 4 .9 mg/dL [facility] Comment on above: The performance jake acteristics of phosphorus testing in heparinized plasma have been validated by the individual laboratory site where testing is performed. Testing on heparinized plasma is not approved by the FDA; however, such approval is not necessary. Potassium [Moles/Vol] 4.0 mmol/L 3.5 - 5.3 mmol/L [facility] Sodium [Moles/Vol] 135 mmol/L Low 136 - 145 mmol/L [facility] Urea nitrogen [Mass/Vol] 8 mg/dL 6 - 23 mg/dL [facility] Reticulocytes panel (Bld)on 02-22-2024 Hemoglobin (Reticulocytes) [Entitic mass] 18 pg Low 28 - 38 pg [facility] Immature Retic fraction 11.6 % NINF - 16.0 % [facility] Comment on above: Reticulocytes are me asured based on a fluorescent technique. The IRF, or immature reticulocyte fraction, is the percent of reticulocytes that show medium (MFR) or high (HFR) fluorescence. This value can be used to assess the relative maturity of the reticulocyte population in response to anemia. The shift reticulocytes are not measured by this technique, eliminating the need for their correction in the reticulocyte index. Interpretation and review of laboratory results Abnormal [facility] Reticulocytes (Bld) [#/Vol] 0.032 10*3/uL [facility] Reticulocytes/100 RBC (Bld) 1.1 % 0.5 - 2.0 % [facility] Hemoglobin (Reticulocytes) [Entitic mass] 18 pg Low 28-38 [facility] Comment on above: Performed By: #### 3 4529-8 #### LINSEY Cuevas ([id number]) [facility] ([facility] [address] [place] [address] 63784 IMMATURE RETIC FRACTION 11.6 % Normal <=16.0 [facility] Comment on above: Result Comment: Reti culocytes are measured based on a fluorescent technique. The IRF, or immature reticulocyte fraction, is the percent of reticulocytes that show medium (MFR) or high (HFR) fluorescence. This value can be used to assess the relative maturity of the reticulocyte population in response to anemia. The shift reticulocytes are not measured by this technique, eliminating the need for their correction in the reticulocyte index. Performed By: #### 3 4529-8 #### LINSEY Cuevas ([id number]) [facility] ([facility] [address] [place] [address] 79191 Reticulocytes (Bld) [#/Vol] 0.032 x10*6/uL Normal 0.018-0.083 [facility] Comment on above: Performed By: #### 3 4529-8 #### LINSEY Cuevas ([id number]) [facility] ([facility] [address] [place] [address] 17544 Reticulocytes/100 RBC (Bld) 1.1 % Normal 0.5-2.0 [facility] Comment on above: Performed By: #### 3 4529-8 #### LINSEY Cuevas ([id number]) [facility] ([facility] [address] [place] [phone] Vancomycinon 02-22-2024 Vancomycin [Mass/Vol] 9.3 ug/mL 5.0 - 20.0 ug/mL [facility] Vancomycin [Mass/Vol] 9.3 ug/mL Normal 5.0-20.0 [facility] Comment on above: Order Comment: The A PTT is no longer used for monitoring Unfractionated Heparin Therapy. For monitoring Heparin Therapy, use the Heparin Assay. Performed By: #### 3 4529-8 #### LINSEY Cuevas ([id number]) [facility] ([facility] [address] [place], [place] [id number] Vancomycin [Mass/Vol]on Vancomycin levels can be monitored according to area under the curve (AUC) or concentration (ug/mL). The preferred monitoring strategy is determined by the patient's renal function and indication for therapy. For AUC monitoring, a random vancomycin level should be interpreted in the context of AUC rather than the concentration at a single point in time. For concentration monitoring, a trough concentration drawn immediately prior to the next dose is preferred. Therapeutic ranges using concentration-guided results: Peak (all ages): 30.0-40.0 ug/mL Trough (all ages): 10.0-20.0 ug/mL [facility] Bacteria identifiedon 2023 Bacteria identified Cx Nom (Unsp spec) Test: Tissue/Wound Culture/Smear Specimen Source: ABSCESS Specimen Type: Swab Specimen Date: 02/21/20242215 Result Date: 02/25/20241622 Result Status: Final result Abnormal: Yes Resulting Lab: [facility] [address] [place] [address] 39766 CULTURE (1+) Rare Eugenia albicans (Abnormal) (1+) Rare Mixed Gram-Positive and Gram-Negative Bacteria STAIN No polymorphonuclear leukocytes seen No organisms seen Abnormal [facility] Comment on above: Performed By: #### 6 463-4 ####LINSEY Cuevas ([id number])[facility] ([facility])[address] [place] [address] Blood type and Indirect anti body screen panel (Bld)on 02-21-2024 ABO group Nom (Bld) [facility] [place] [facility] antibody screen Ql Negative [facility] D Ag Ql (Bld) Positive [facility] ABO group Nom (Bld) AB Normal [facility] Comment on above: Performed By: #### 3 4532-2 #### LINSEY Cuevas ([id number]) [facility] BLOOD BANK ([facility]) [id number] [place], [place] [phone] Blood group antibody screen Ql Negative [facility] Comment on above: Performed By: #### 3 4532-2 #### LINSEY Cuevas ([id number]) [facility] BLOOD [facility] ([facility]) [address] [place], [place] [phone] D Ag Ql (Bld) Positive [facility] Comment on above: Performed By: #### 3 4532-2 #### LINSEY Cuevas ([id number]) [facility] BLOOD [facility] ([facility]) [address] [place], [place] [phone] CBC W Auto Differential pane l (Bld)on 02-21-2024 Basophils (Bld) [#/Vol] 0.04 10*3/uL [facility] Basophils/100 WBC (Bld) 0.2 % 0.0 - 2.0 % [facility] Eosinophils (Bld) [#/Vol] 0.00 10*3/uL [facility] Eosinophils/100 WBC (Bld) 0.0 % 0.0 - 6.0 % [facility] Erythrocyte distribution width (RBC) [Ratio] 16.4 % High 11.5 - 14.5 % [facility] Hematocrit (Bld) [Volume fraction] 20.4 % Low 36.0 - 46.0 % [facility] Hemoglobin (Bld) [Mass/Vol] 6.1 g/dL Critically low 12.0 - 16.0 g/dL [facility] Immature granulocytes (Bld) [#/Vol] 0.24 10*3/uL [facility] Immature granulocytes/100 WBC (Bld) 1.1 % High 0.0 - 0.9 % [facility] Comment on above: Immature Granulocyte Count (IG) includes promyelocytes, myelocytes and metamyelocytes but does not include bands. Percent differential counts (%) should be interpreted in the context of the absolute cell counts (cells/UL). Interpretation and review of laboratory results Abnormal [facility] Lymphocytes (Bld) [#/Vol] 1.92 10*3/uL [facility] Lymphocytes/100 WBC (Bld) 8.7 % 13.0 - 44.0 % [facility] MCH (RBC) [Entitic mass] 21.3 pg Low 26.0 - 34.0 pg [facility] MCHC (RBC) [Mass/Vol] 29.9 g/dL Low 32.0 - 36.0 g/dL [facility] MCV (RBC) [Entitic vol] 71 fL Low 80 - 100 fL [facility] Monocytes (Bld) [#/Vol] 0.74 10*3/uL [facility] Monocytes/100 WBC (Bld) 3.3 % 2.0 - 10.0 % [facility] Neutrophils (Bld) [#/Vol] 19.22 10*3/uL High [facility] Comment on above: Percent differential counts (%) should be interpreted in the context of the absolute cell counts (cells/uL). Neutrophils/100 WBC (Bld) 86.7 % 40.0 - 80.0 % [facility] Nucleated RBC/100 WBC (Bld) [Ratio] 0.0 % [facility] Platelets (Bld) [#/Vol] 386 10*3/uL [facility] RBC (Bld) [#/Vol] 2.87 10*6/uL Low [facility] WBC (Bld) [#/Vol] 22.2 10*3/uL High [facility] [place] Basophils (Bld) [#/Vol] 0.04 x10*3/uL Normal 0.00-0.10 [facility] Comment on above: Performed By: #### 5 7021-8 #### LINSEY Cuevas ([id number]) [facility] ([facility]) [address] [place] [address] 42738 Basophils/100 WBC (Bld) 0.2 % Normal 0.0-2.0 [facility] Comment on above: Performed By: #### 5 7021-8 #### LINSEY ESCOBAR L ([id number]) [facility] ([facility]) [address] [place] [address] 36560 Eosinophils (Bld) [#/Vol] 0.00 x10*3/uL Normal 0.00-0.70 [facility] Comment on above: Performed By: #### 5 7021-8 #### LINSEY ESCOBAR L ([id number]) [facility] ([facility]) [address] [place] [address] 66844 Eosinophils/100 WBC (Bld) 0.0 % Normal 0.0-6.0 [facility] Comment on above: Performed By: #### 5 7021-8 #### LINSEY ESCOBAR L ([id number]) [facility] ([facility]) [address] [place] [address] 83806 Erythrocyte distribution width (RBC) [Ratio] 16.4 % High 11.5-14.5 [facility] Comment on above: Performed By: #### 5 7021-8 #### LINSEY ESCOBAR L ([id number]) [facility] ([facility]) [address] [place] [address] 84691 Hematocrit (Bld) [Volume fraction] 20.4 % Low 36.0-46.0 [facility] Comment on above: Performed By: #### 5 7021-8 #### LINSEY ESCOBAR L ([id number]) [facility] ([facility]) [address] [place] [address] 23879 Hemoglobin (Bld) [Mass/Vol] 6.1 g/dL Critically low 12.0-16.0 [facility] Comment on above: Performed By: #### 5 7021-8 #### LINSEY ESCOBAR L ([id number]) [facility] ([facility]) [address] [place] [address] Immature granulocytes (Bld) [#/Vol] 0.24 x10*3/uL Normal 0.00-0.70 [facility] Comment on above: Performed By: #### 5 7021-8 #### LINSEY Cuevas ([id number]) [facility] ([facility]) [address] [place] [address] 17456 Immature granulocytes/100 WBC (Bld) 1.1 % High 0.0-0.9 [facility] Comment on above: Result Comment: Kiah ture Granulocyte Count (IG) includes promyelocytes, myelocytes and metamyelocytes but does not include bands. Percent differential counts (%) should be interpreted in the context of the absolute cell counts (cells/UL). Performed By: #### 5 7021-8 #### LINSEY Cuevas ([id number]) [facility] ([facility]) [address] [place] [address] 09149 Lymphocytes (Bld) [#/Vol] 1.92 x10*3/uL Normal 1.20-4.80 [facility] Comment on above: Performed By: #### 5 7021-8 #### LINSEY Cuevas ([id number]) [facility] ([facility]) [address] [place] [address] 16173 Lymphocytes/100 WBC (Bld) 8.7 % Normal 13.0-44.0 [facility] Comment on above: Performed By: #### 5 7021-8 #### LINSEY Cuevas ([id number]) [facility] ([facility]) [address] [place] [address] 83506 MCH (RBC) [Entitic mass] 21.3 pg Low 26.0-34.0 [facility] Comment on above: Performed By: #### 5 7021-8 #### LINSEY Cuevas ([id number]) [facility] ([facility]) [address] [place] [address] MCHC (RBC) [Mass/Vol] 29.9 g/dL Low 32.0-36.0 [facility] Comment on above: Performed By: #### 5 7021-8 #### LINSEY Cuevas ([id number]) [facility] ([facility]) [address] [place] [address] MCV (RBC) [Entitic vol] 71 fL Low 80-100 [facility] Comment on above: Performed By: #### 5 7021-8 #### LINSEY Cuevas (04543) [facility] ([facility]) [address] [place] [address] 22878 Monocytes (Bld) [#/Vol] 0.74 x10*3/uL Normal 0.10-1.00 [facility] Comment on above: Performed By: #### 5 7021-8 #### LINSEY Cuevas ([id number]) [facility] ([facility]) [address] [place] [address] 78868 Monocytes/100 WBC (Bld) 3.3 % Normal 2.0-10.0 [facility] Comment on above: Performed By: #### 5 7021-8 #### LINSEY Cuevas ([id number]) [facility] ([facility]) [address] [place] [address] 55069 Neutrophils (Bld) [#/Vol] 19.22 x10*3/uL High 1.20-7.70 [facility] Comment on above: Result Comment: Perc ent differential counts (%) should be interpreted in the context of the absolute cell counts (cells/uL). Performed By: #### 5 7021-8 #### LINSEY Cuevas ([id number]) [facility] ([facility]) [address] [place] [address] Neutrophils/100 WBC (Bld) 86.7 % Normal 40.0-80.0 [facility] Comment on above: Performed By: #### 5 7021-8 #### LINSEY ESCOBAR L ([id number]) [facility] ([facility]) [address] [place] [address] 20789 Nucleated RBC/100 WBC (Bld) [Ratio] 0.0 /100 WBCs Normal 0.0-0.0 [facility] Comment on above: Performed By: #### 5 7021-8 #### LINSEY Cuevas ([id number]) [facility] ([facility]) [address] [place] [address] 40458 Platelets (Bld) [#/Vol] 386 x10*3/uL Normal 150-450 [facility] Comment on above: Performed By: #### 5 7021-8 #### LINSEY Cuevas ([id number]) [facility] ([facility]) [address] [place] [address] 53636 RBC (Bld) [#/Vol] 2.87 x10*6/uL Low 4.00-5.20 [facility] Comment on above: Performed By: #### 5 7021-8 #### LINSEY Cuevas ([id number]) [facility] ([facility]) [address] [place] [address] 33523 WBC (Bld) [#/Vol] 22.2 x10*3/uL High 4.4-11.3 [facility] Comment on above: Performed By: #### 5 7021-8 #### LINSEY Cuevas ([id number]) [facility] ([facility]) [address] [place] [address] 63215 CBC panel Auto (Bld)on 02-20 Erythrocyte distribution width (RBC) [Ratio] 18.0 % High 11.5 - 14.5 % [facility] Hematocrit (Bld) [Volume fraction] 25.8 % Low 36.0 - 46.0 % [facility] Hemoglobin (Bld) [Mass/Vol] 7.8 g/dL Low 12.0 - 16.0 g/dL [facility] Interpretation and review of laboratory results Abnormal [facility] MCH (RBC) [Entitic mass] 22.6 pg Low 26.0 - 34.0 pg [facility] MCHC (RBC) [Mass/Vol] 30.2 g/dL Low 32.0 - 36.0 g/dL [facility] MCV (RBC) [Entitic vol] 75 fL Low 80 - 100 fL [facility] Nucleated RBC/100 WBC (Bld) [Ratio] 0.0 % [facility] Platelets (Bld) [#/Vol] 440 10*3/uL [facility] RBC (Bld) [#/Vol] 3.45 10*6/uL Low [facility] WBC (Bld) [#/Vol] 23.0 10*3/uL High [facility] Erythrocyte distribution width (RBC) [Ratio] 18.0 % High 11.5-14.5 [facility] Comment on above: Performed By: #### 5 8410-2 #### LINSEY Cuevas ([id number]) [facility] ([facility]) [address] [place] [address] 09801 Hematocrit (Bld) [Volume fraction] 25.8 % Low 36.0-46.0 [facility] Comment on above: Performed By: #### 5 8410-2 #### LINSEY Cuevas ([id number]) [facility] ([facility]) [address] [place] [address] 24115 Hemoglobin (Bld) [Mass/Vol] 7.8 g/dL Low 12.0-16.0 [facility] Comment on above: Performed By: #### 5 8410-2 #### LINSEY Cuevas ([id number]) [facility] ([facility]) [address] [place] [address] 70264 MCH (RBC) [Entitic mass] 22.6 pg Low 26.0-34.0 [facility] Comment on above: Performed By: #### 5 8410-2 #### LINSEY Cuevas ([id number]) [facility] ([facility]) [address] [place] [address] 51655 MCHC (RBC) [Mass/Vol] 30.2 g/dL Low 32.0-36.0 [facility] Comment on above: Performed By: #### 5 8410-2 #### LINSEY Cuevas (87659) [facility] ([facility]) [address] [place] [address] 96320 MCV (RBC) [Entitic vol] 75 fL Low 80-100 [facility] Comment on above: Performed By: #### 5 8410-2 #### LINSEY Cuevas ([id number]) [facility] ([facility]) [address] [place] [address] 57243 Nucleated RBC/100 WBC (Bld) [Ratio] 0.0 /100 WBCs Normal 0.0-0.0 [facility] Comment on above: Performed By: #### 5 8410-2 #### LINSEY Cuevas ([id number]) [facility] ([facility]) [address] [place] [address] 12065 Platelets (Bld) [#/Vol] 440 x10*3/uL Normal 150-450 [facility] Comment on above: Performed By: #### 5 8410-2 #### LINSEY Cuevas (47981) [facility] ([facility]) [address] [place] [address] 50816 RBC (Bld) [#/Vol] 3.45 x10*6/uL Low 4.00-5.20 [facility] Comment on above: Performed By: #### 5 8410-2 #### LINSEY Cuevas ([id number]) [facility] ([facility]) [address] [place] [address] 09439 WBC (Bld) [#/Vol] 23.0 x10*3/uL High 4.4-11.3 [facility] Comment on above: Performed By: #### 5 8410-2 #### LINSEY Cuevas ([id number]) [facility] ([facility]) [address] [place] [address] 26415 Comprehensive metabolic 2000 panelon 02-21-2024 Albumin BCP dye [Mass/Vol] 2.3 g/dL Low 3.4 - 5.0 g/dL [facility] ALP [Catalytic activity/Vol] 106 U/L 33 - 110 U/L [facility] ALT With P-5'-P [Catalytic activity/Vol] 24 U/L 7 - 45 U/L [facility] Comment on above: Patients treated wit h Sulfasalazine may generate falsely decreased results for ALT. Anion gap [Moles/Vol] 15 mmol/L 10 - 2 0 mmol/L [facility] AST With P-5'-P [Catalytic activity/Vol] 19 U/L 9 - 39 U/L [facility] Bilirubin [Mass/Vol] 0.4 mg/dL 0.0 - 1 .2 mg/dL [facility] Calcium [Mass/Vol] 7.6 mg/dL Low 8.6 - 10. 6 mg/dL [facility] Chloride [Moles/Vol] 101 mmol/L 98 - 10 7 mmol/L [facility] CO2 [Moles/Vol] 22 mmol/L 21 - 32 mmol/L [facility] Creatinine [Mass/Vol] 0.60 mg/dL 0.50 - 1.05 mg/dL [facility] eGFR - PINF [facility] Comment on above: Calculations of lazarus mated GFR are performed using the 2020 CKD-EPI Study Refit equation without the race variable for the IDMS-Traceable creatinine methods. https://jasn.asnjournals.org/content/early//ASN.13766 81519 Glucose [Mass/Vol] 97 mg/dL 74 - 99 mg/dL [facility] Interpretation and review of laboratory results Abnormal [facility] Potassium [Moles/Vol] 3.3 mmol/L Low 3.5 - 5.3 mmol/L [facility] Protein [Mass/Vol] 6.3 g/dL Low 6.4 - 8.2 g/dL [facility] Sodium [Moles/Vol] 135 mmol/L Low 136 - 145 mmol/L [facility] Urea nitrogen [Mass/Vol] 7 mg/dL 6 - 23 mg/dL [facility] Albumin BCP dye [Mass/Vol] 2.3 g/dL Low 3.4-5.0 [facility] Comment on above: Performed By: #### 2 4323-8 #### LINSEY Cuevas ([id number]) [facility] ([facility]) [address] [place] [address] Performed By: #### 2 4325-3 #### LINSEY Cuevas (48770) [facility] ([facility]) [address] [place] [address] 89746 ALP [Catalytic activity/Vol] 106 U/L Normal 33-110 [facility] Comment on above: Performed By: #### 2 4323-8 #### LINSEY Cuevas (94787) [facility] ([facility]) [address] [place] [address] 68423 Performed By: #### 2 4325-3 #### LINSEY Cuevas (49340) [facility] ([facility]) [address] [place] [address] 47396 ALT With P-5'-P [Catalytic activity/Vol] 24 U/L Normal 7-45 [facility] Comment on above: Result Comment: Jade ents treated with Sulfasalazine may generate falsely decreased results for ALT. Performed By: #### 2 4323-8 #### LINSEY Cuevas ([id number]) [facility] ([facility]) [address] [place] [address] 14073 Performed By: #### 2 4325-3 #### LINSEY Cuevas (27803) [facility] ([facility]) [address] [place] [address] 33509 Anion gap [Moles/Vol] 15 mmol/L Normal 10-20 [facility] Comment on above: Performed By: #### 2 4323-8 #### LINSEY Cuevas (34225) [facility] ([facility]) [address] [place] [address] 37762 AST With P-5'-P [Catalytic activity/Vol] 19 U/L Normal 9-39 [facility] Comment on above: Performed By: #### 2 4323-8 #### LINSEY ESCOBAR L (19521) [facility] ([facility]) [address] [place] [address] 91171 Performed By: #### 2 4325-3 #### LINSEY Cuevas (49734) [facility] ([facility]) [address] [place] [address] Bilirubin [Mass/Vol] 0.4 mg/dL Normal 0.0-1.2 [facility] Comment on above: Performed By: #### 2 4323-8 #### LINSEY Cuevas (90431) [facility] ([facility]) [address] [place] [address] 91734 Performed By: #### 2 4325-3 #### LINSEY Cuevas ([id number]) [facility] ([facility]) [address] [place] [address] 95579 Calcium [Mass/Vol] 7.6 mg/dL Low 8.6-10.6 [facility] Comment on above: Performed By: #### 2 4323-8 #### LINSEY Cuevas (46830) [facility] ([facility]) [address] [place] [address] 76093 Chloride [Moles/Vol] 101 mmol/L Normal 98-107 [facility] Comment on above: Performed By: #### 2 4323-8 #### LINSEY Cuevas (19528) [facility] ([facility]) [address] [place] [address] 91915 CO2 [Moles/Vol] 22 mmol/L Normal 21-32 [facility] Comment on above: Performed By: #### 2 4323-8 #### LINSEY Cuevas (81704) [facility] ([facility]) [address] [place] [address] 62287 Creatinine [Mass/Vol] 0.60 mg/dL Normal 0.50-1.05 [facility] Comment on above: Performed By: #### 2 4323-8 #### LINSEY Cuevas (34084) [facility] ([facility]) [address] [place] [address] 45864 GFR/1.73 sq M.predicted MDRD (S/P/Bld) [Vol rate/Area] mL/min/{1.73_m2} Normal >60 [facility] Comment on above: Result Comment: Calc ulations of estimated GFR are performed using the 2020 CKD-EPI Study Refit equation without the race variable for the IDMS-Traceable creatinine methods. https://jasn.asnjournals.org/content//ASN.01890 03434 Performed By: #### 2 4323-8 #### LINSEY Cuevas (62225) [facility] ([facility]) [address] [place] [address] 77410 Glucose [Mass/Vol] 97 mg/dL Normal 74-99 [facility] Comment on above: Performed By: #### 2 4323-8 #### LINSEY Cuevas (51476) [facility] ([facility]) [address] [place] [address] 69825 Potassium [Moles/Vol] 3.3 mmol/L Low 3.5-5.3 [facility] Comment on above: Performed By: #### 2 4323-8 #### LINSEY Cuevas (34577) [facility] ([facility]) [address] [place] [address] 52053 Protein [Mass/Vol] 6.3 g/dL Low 6.4-8.2 [facility] Comment on above: Performed By: #### 2 4323-8 #### LINSEY Cuevas (05834) [facility] ([facility]) [address] [place] [address] 30395 Performed By: #### 2 4325-3 #### LINSEY Cuevas (01117) [facility] ([facility]) [address] [place] [address] 78712 Sodium [Moles/Vol] 135 mmol/L Low 136-145 [facility] Comment on above: Performed By: #### 2 4323-8 #### LINSEY ESCOBAR L ([id number]) [facility] ([facility]) [address] [place] [address] 70933 Urea nitrogen [Mass/Vol] 7 mg/dL Normal 6-23 [facility] Comment on above: Performed By: #### 2 4323-8 #### LINSEY Cuevas (64909) [facility] ([facility]) [address] [place] [address] Fungus identifiedon 02-21-20 Fungus identified Cx Nom (Unsp spec) Test: Fungal Culture/Smear Specimen Source: ABSCESS Specimen Type: Swab Specimen Date: 02/21/20242215 Result Date: 02/24/2024 103 Result Status: Final result Abnormal: Yes Resulting Lab: [facility] [address] [place] [address] CULTURE 4 colonies Eugenia albicans (Abnormal) STAIN No fungal elements seen Abnormal [facility] Comment on above: Performed By: #### 5 80-1 ####LINSEY Cuevas ([id number])[facility] ([facility])[address] [place] [address] Hepatic function 2000 panelo n 02-21-2024 Albumin BCP dye [Mass/Vol] 2.3 g/dL Low 3.4 - 5.0 g/dL [facility] ALP [Catalytic activity/Vol] 106 U/L 33 - 110 U/L [facility] ALT With P-5'-P [Catalytic activity/Vol] 24 U/L 7 - 45 U/L [facility] Comment on above: Patients treated wit h Sulfasalazine may generate falsely decreased results for ALT. AST With P-5'-P [Catalytic activity/Vol] 19 U/L 9 - 39 U/L [facility] Bilirubin [Mass/Vol] 0.4 mg/dL 0.0 - 1 .2 mg/dL [facility] Bilirubin.direct [Mass/Vol] 0.0 mg/dL 0.0 - 0.3 mg/dL [facility] Interpretation and review of laboratory results Abnormal [facility] Protein [Mass/Vol] 6.3 g/dL Low 6.4 - 8.2 g/dL [facility] Bilirubin.direct [Mass/Vol] 0.0 mg/dL Normal 0.0-0.3 [facility] Comment on above: Performed By: #### 2 4325-3 #### LINSEY Cuevas ([id number]) [facility] ([facility] [address] [place] [address] 91445 Iron and Iron binding capaci ty panelon 02-21-2024 Iron [Mass/Vol] 19 ug/dL Low 35-150 [facility] Comment on above: Performed By: #### 3 4529-8 #### LINSEY Cuevas ([id number]) [facility] ([facility] [address] [place] [address] [id number] Iron binding capacity [Mass/Vol] 182 ug/dL Low 240-445 [facility] Comment on above: Performed By: #### 3 4529-8 #### LINSEY Cuevas ([id number]) [facility] ([facility] [address] [place] [address] [id number] Iron binding capacity.unsaturated [Mass/Vol] 163 ug/dL Normal 110-370 [facility] Comment on above: Performed By: #### 3 4529-8 #### LINSEY Cuevas ([id number]) [facility] ([facility] [address] [place] [address] [id number] Iron saturation [Mass fraction] 10 % Low 25-45 [facility] Comment on above: Performed By: #### 3 4529-8 #### LINSEY Cuevas ([id number]) [facility] ([facility] [address] [place] [address] [id number] Magnesiumon 02-21-2024 Magnesium [Mass/Vol] 1.76 mg/dL Normal 1.60-2.40 [facility] Comment on above: Performed By: #### 1 9123-9 #### LINSEY Cuevas ([id number]) [facility] ([facility] [address] [place] [address] [id number] PT and aPTT panel Coag (PPP) on 02-21-2024 aPTT Coag (PPP) [Time] 28 s [facility] INR Coag (PPP) [Relative time] 1.5 {INR} High 0.9 - 1.1 [facility] Interpretation and review of laboratory results Abnormal [facility] PT Coag (PPP) [Time] 16.6 s High [facility] The APTT is no longe r used for monitoring Unfractionated Heparin Therapy. For monitoring Heparin Therapy, use the Heparin Assay. [facility] aPTT Coag (PPP) [Time] 28 s Normal 27-38 Un [facility] Comment on above: Order Comment: The A PTT is no longer used for monitoring Unfractionated Heparin Therapy. For monitoring Heparin Therapy, use the Heparin Assay. Performed By: #### 3 4529-8 #### LINSEY Cuevas ([id number]) [facility] ([facility] [address] [place] [phone] INR Coag (PPP) [Relative time] 1.5 High 0.9-1.1 [facility] Comment on above: Order Comment: The A PTT is no longer used for monitoring Unfractionated Heparin Therapy. For monitoring Heparin Therapy, use the Heparin Assay. Performed By: #### 3 4529-8 #### LINSEY Cuevas ([id number]) [facility] ([facility] [address] [place] [address] 09936 PT Coag (PPP) [Time] 16.6 s High 9.8-12.8 [facility] Comment on above: Order Comment: The A PTT is no longer used for monitoring Unfractionated Heparin Therapy. For monitoring Heparin Therapy, use the Heparin Assay. Performed By: #### 3 4529-8 #### LINSEY Cuevas ([id number]) [facility] ([facility] [address] [place] [address] 04787 aPTT Coag (PPP) [Time] 23 s Low Un [facility] INR Coag (PPP) [Relative time] 2.2 {INR} High 0.9 - 1.1 [facility] Interpretation and review of laboratory results Abnormal [facility] PT Coag (PPP) [Time] 24.5 s High [facility] The APTT is no longe r used for monitoring Unfractionated Heparin Therapy. For monitoring Heparin Therapy, use the Heparin Assay. [facility] aPTT Coag (PPP) [Time] 23 s Low 27-38 [facility] Comment on above: Order Comment: The A PTT is no longer used for monitoring Unfractionated Heparin Therapy. For monitoring Heparin Therapy, use the Heparin Assay. Performed By: #### 3 4529-8 #### LINSEY Cuevas ([id number]) [facility] ([facility]) [address] [place] [phone] INR Coag (PPP) [Relative time] 2.2 High 0.9-1.1 [facility] Comment on above: Order Comment: The A PTT is no longer used for monitoring Unfractionated Heparin Therapy. For monitoring Heparin Therapy, use the Heparin Assay. Performed By: #### 3 4529-8 #### LINSEY Cuevas ([id number]) [facility] ([facility]) [address] [place] [address] [phone] PT Coag (PPP) [Time] 24.5 s High 9.8-12.8 [facility] Comment on above: Order Comment: The A PTT is no longer used for monitoring Unfractionated Heparin Therapy. For monitoring Heparin Therapy, use the Heparin Assay. Performed By: #### 3 4529-8 #### LINSEY Cuevas ([id number]) [facility] ([facility]) [address] [place] [address] 83043 Renal function 2000 panelon 02-21-2024 Albumin BCP dye [Mass/Vol] 2.2 g/dL Low 3.4-5.0 [facility] Comment on above: Performed By: #### 3 4529-8 #### LINSEY Cuevas ([id number]) [facility] ([facility]) [address] [place] [address]20 Anion gap [Moles/Vol] 16 mmol/L Normal 10-20 [facility] Comment on above: Performed By: #### 3 4529-8 #### LINSEY Cuevas ([id number]) [facility] ([facility]) [address] [place] [address] Calcium [Mass/Vol] 7.7 mg/dL Low 8.6-10.6 [facility] Comment on above: Performed By: #### 3 4529-8 #### LINSEY Cuevas ([id number]) [facility] ([facility]) [address] [place] [address] Chloride [Moles/Vol] 101 mmol/L Normal 98-107 [facility] Comment on above: Performed By: #### 3 4529-8 #### LINSEY Cuevas ([id number]) [facility] ([facility]) [address] [place] [address] CO2 [Moles/Vol] 22 mmol/L Normal 21-32 [facility] Comment on above: Performed By: #### 3 4529-8 #### LINSEY Cuevas ([id number]) [facility] ([facility]) [address] [place] [address] Creatinine [Mass/Vol] 0.67 mg/dL Normal 0.50-1.05 [facility] Comment on above: Performed By: #### 3 4529-8 #### LINSEY Cuevas ([id number]) [facility] ([facility]) [address] [place] [address] GFR/1.73 sq M.predicted MDRD (S/P/Bld) [Vol rate/Area] mL/min/{1.73_m2} Normal >60 [facility] Comment on above: Result Comment: Calc ulations of estimated GFR are performed using the 2020 CKD-EPI Study Refit equation without the race variable for the IDMS-Traceable creatinine methods. https://jasn.asnjournals.org/content/early/ASN.71703 97470 Performed By: #### 3 4529-8 #### LINSEY Cuevas ([id number]) [facility] ([facility]) [address] [place] [address] Glucose [Mass/Vol] 117 mg/dL High 74-99 [facility] Comment on above: Performed By: #### 3 4529-8 #### LINSEY Cuevas ([id number]) [facility] ([facility]) [address] [place] [address] Phosphate [Mass/Vol] 4.1 mg/dL Normal 2.5-4.9 [facility] Comment on above: Result Comment: The performance characteristics of phosphorus testing in heparinized plasma have been validated by the individual laboratory site where testing is performed. Testing on heparinized plasma is not approved by the FDA; however, such approval is not necessary. Performed By: #### 3 4529-8 #### LINSEY Cuevas ([id number]) [facility] ([facility]) [id number] [place] [address] Potassium [Moles/Vol] 4.0 mmol/L Normal 3.5-5.3 [facility] Comment on above: Performed By: #### 3 4529-8 #### LINSEY Cuevas ([id number]) [facility] ([facility]) [id number] [place] [address] Sodium [Moles/Vol] 135 mmol/L Low 136-145 [facility] Comment on above: Performed By: #### 3 4529-8 #### LINSEY Cuevas ([id number]) [facility] ([facility]) [address] [place] [address] Urea nitrogen [Mass/Vol] 8 mg/dL Normal 6-23 [facility] Comment on above: Performed By: #### 3 4529-8 #### LINSEY Cuevas ([id number]) [facility] ([facility]) [address] [place] [address] VERAB/VERIFY ABORHon 024 ABO group Nom (Bld) AB Normal [facility] Comment on above: Order Comment: Thi s is for confirming/verifying history of ABORh on file for transfusion of blood products. If this is not for transfusion, please order an ABO/RH [[id number]]. If you have any questions or unsure what to order, please call the blood bank. Performed By: #### V ERAB #### LINSEY LUZ Cuevas ([id number]) [facility] [address] [place] [address] D Ag Ql (Bld) Positive [facility] Comment on above: Order Comment: Thi s is for confirming/verifying history of ABORh on file for transfusion of blood products. If this is not for transfusion, please order an ABO/RH [[id number]]. If you have any questions or unsure what to order, please call the blood bank. Performed By: #### V ERAB #### LINSEY WHITEPRISCILA Cuevas ([id number]) [facility] [address] [place] [address] VERIFY ABO/Rh Group Teston 0 02-21-2024 ABO group Nom (Bld) AB [facility] D Ag Ql (Bld) Positive [facility] XR CHEST 1 VIEWon 02-21-2024 XR CHEST 1 VIEW STUDY: Chest Radiograph; 02/21/2024 INDICATION: Pre op. COMPARISON: No priors available ACCESSION NUMBER(S): [id number] ORDERING CLINICIAN: GLORY DAMON TECHNIQUE: Frontal chest was obtained at 18:04 hours. FINDINGS: CARDIOMEDIASTINAL SILHOUETTE: Cardiomediastinal silhouette is normal in size and configuration. LUNGS: Lungs are clear. There is no pleural effusion and no evidence of pneumothorax. ABDOMEN: No remarkable upper abdominal findings. BONES: No acute osseous changes. IMPRESSION: No acute cardiopulmonary disease. Signed by Dayton Shelby MD [facility] XR Chest Single viewon 02-20 No acute cardiopulmonary disease. Signed by Dayton Shelby MD TELERADIOLOGY STUDY: Chest Radiograph; 02/21/2024 INDICATION: Pre op. COMPARISON: No priors available ACCESSION NUMBER(S): [id number] ORDERING CLINICIAN: GLORY DAMON TECHNIQUE: Frontal chest was obtained at 18:04 hours. FINDINGS: CARDIOMEDIASTINAL SILHOUETTE: Cardiomediastinal silhouette is normal in size and configuration. LUNGS: Lungs are clear. There is no pleural effusion and no evidence of pneumothorax. ABDOMEN: No remarkable upper abdominal findings. BONES: No acute osseous changes. TELERADIOLOGY Dayton Shelby MD - 02/21/2024 STUDY: Chest Radiograph; 02/21/2024 INDICATION: Pre op. COMPARISON: No priors available ACCESSION NUMBER(S): [id number] ORDERING CLINICIAN: GLORY DAMON TECHNIQUE: Frontal chest was obtained at 18:04 hours. FINDINGS: CARDIOMEDIASTINAL SILHOUETTE: Cardiomediastinal silhouette is normal in size and configuration. LUNGS: Lungs are clear. There is no pleural effusion and no evidence of pneumothorax. ABDOMEN: No remarkable upper abdominal findings. BONES: No acute osseous changes. IMPRESSION: No acute cardiopulmonary disease. Signed by Dayton Shelby MD [facility] Work Phone: Radiology Study observation (narrative) [facility] Work Phone: XR Chest Single viewOrdered By: Dayton Shelby on 02-21-2024 [facility] Work Phone: Laboratory - Chemistry and C hemistry - challengeon 11-11-2023 Bilirubin Ql (U) Negative Normal [facility], f[facility].; [employer], frestyl. Ketones Ql (U) Negative Normal [facility], frestyl.; [employer], frestyl. pH (U) 6.5 [pH] Normal [employer] [facility], [facility].; [employer] Potassium [Moles/Vol] 3.1 mmol/L Abnormal 3.5 - 5.1 mmol/L [employer] [facility], [facility].; [employer], frestyl. Specific gravity (U) [Rel density] 1.025 Normal [employer], [facility].; [employer], frestyl. Urobilinogen Qn (U) 0.2 mg/dL Normal [facility] [employer] [facility], [facility].; [employer], frestyl. Laboratory - Hematology and Cell countson 11-11-2023 Hemoglobin Ql (U) trace, hemolyzed Abnormal [facility] [employer] [facility].; [employer], frestyl. Laboratory - Specimen inform ationon 11-11-2023 Appearance (U) cloudy Abnormal [facility] [employer].; [employer] Color (U) dark Yellow Normal [facility] To Get Approved For [facility].; [facility]. Laboratory - Urinalysison Glucose Test strip (U) [Mass/Vol] Negative Normal [facility].; [employer]. Leukocyte esterase Test strip Ql (U) trace Normal [facility].; [employer] Nitrite Ql (U) Negative Normal [facility] [employer].; [employer] Protein Ql (U) trace Normal [facility] [employer].; [employer]. Final Surgical Pathology Rep robert 09-05-2023 Final Surgical Pathology Report . Pathology Reports Accession: Collected Date/Time: Received Date/Time: Pathologist: [id number] 09/01/2023 11:45 EST 09/02/2023 09:01 MD KEDAR FRANKS Final Surgical Pathology Report DIAGNOSIS: A. RIGHT COLON, BIOPSY: - MINIMAL TO MILD ACTIVE CHRONIC COLITIS B. TRANSVERSE COLON, BIOPSY: - MILD TO MODERATE ACTIVE CHRONIC COLITIS C. DESCENDING COLON, BIOPSY: - MODERATE ACTIVE CHRONIC COLITIS WITH ULCERATION AND INFLAMED GRANULATION TISSUE D. SIGMOID COLON, BIOPSY: - MILD TO MODERATE ACTIVE CHRONIC COLITIS Comment: Sections demonstrate variable mild to moderate active chronic colitis with acute and chronic inflammation of the lamina propria, cryptitis, crypt abscesses and ulceration with inflamed granulation tissue. The features are suggestive of a chronic inflammatory bowel disease however an infectious/acute self-limited cannot be completely excluded. There is no evidence of dysplasia in any of the biopsies. No granulomas or other specific features to differentiate chromosome ulcerative colitis are identified. Recommend clinical pathologic correlation. COMMENT: [facility] # [id number] CLINICAL INFORMATION: DIARRHEA SPECIMEN: A RANDOM RIGHT COLON B RANDOM TRANSVERSE C RANDOM DESCENDING D RANDOM SIGMOID GROSS DESCRIPTION: All parts labelled with patient name and [id number] A. Received in formalin labeled right colon are multiple wispy white tissue fragments aggregating 0.8 x 0.2 x 0.1 cm. TS-1 B. Received in formalin labeled transverse are 4 frausto tissue fragments measuring 0.1 to 0.4 x 0.2 cm. TS-1 C. Received in formalin labeled descending colon are 3 frausto tissue fragments measuring 0.1 to 0.2 cm. TS-1 D. Received in formalin labeled sigmoid are 3 frausto tissue fragments measuring 0.2 to 0.4 x 0.2 cm. TS-1 Danielle George, Grossing Gifts Officer/ Dr. Shiva Jones, Pathologist Dictated by Danielle Georeg MICROSCOPIC DESCRIPTION: The microscopic examination is performed, except in the case of Gross Only. Pathology Reports Accession: Collected Date/Time: Received Date/Time: Pathologist: [id number] 09/01/2023 11:45 EST 09/02/2023 09:01 NANDO SHEPPARD MD KEDAR Electronically Signed by Pathology Report verified by [facility] KEDAR SHEPPARD MD Sign out Date: 09/05/2023 11:46 Performing Lab: [facility], [address] [place] [address] Pathology Dept Disclaimer If ancillary studies were utilized, the following Laboratory Developed Test (LDT) disclaimer will apply: Under CLIA requirements, [facility] is qualified to perform high complexity testing. For all ancillary stains, positive and negative controls stain appropriately. Performance characteristics of immunohistochemical and chromogenic in-situ hybridization tests have been determined by [facility]. These tests are used for clinical purposes, They should not be regarded as investigational or for research. Normal [facility] ([place]) No Panel Informationon 08-22 CAMPYLOBACTER SPP. AG,EIA SEE NOTE Normal [facility] [employer] CLOSTRIDIUM DIFFICILE TOXIN/GDH W/REFL TO PCR SEE NOTE Normal [facility] [employer] [employer].; [employer] FECAL FAT, QUALITATIVE SEE NOTE Normal [facility] [employer] GIARDIA AG, EIA, STOOL SEE NOTE Normal [facility] [employer] OVA AND PARASITES, CONC AND PERM SMEAR SEE NOTE Normal [facility], [facility].; [employer] SALMONELLA AND SHIGELLA, CULTURE SEE NOTE Normal [employer] SHIGA TOXINS, EIA W/RFL TO E.COLI O157 CULTURE SEE NOTE Normal [facility] [employer] [employer].; [employer] YERSINIA, CULTURE SEE NOTE Normal [facility] [employer] [employer].; [employer] Laboratory - Hematology and Cell countson 06-16-2021 Basophils (Bld) [#/Vol] 0.00 {3/UL} Normal 0.00 - 0.10 {3/UL} [facility] To Get Approved For [facility]; [facility] Card To Get Approved For [facility] Work Phone: Basophils/100 WBC (Bld) 0.3 % Normal 0.0 - 2.0 % [facility] Card To Get Approved For [facility]; [facility] Card To Get Approved For [facility] Work Phone: CBC W Auto Differential panel (Bld) CBC + DIFF Normal [facility]; [employer] [facility] To Get Approved For [facility] Work Phone: Eosinophils (Bld) [#/Vol] 0.00 {3/UL} Normal 0.00 - 0.50 {3/UL} [facility] To Get Approved For [facility]; [employer] [facility] Work Phone: Eosinophils/100 WBC (Bld) 0.2 % Normal 0.0 - 7.0 % [facility] To Get Approved For [facility]; [employer]. Work Phone: Erythrocyte distribution width (RBC) [Ratio] 14.5 % Normal 12.0 - 15.6 % [facility] To Get Approved For [facility]; [employer] [facility] Work Phone: Hematocrit (Bld) [Volume fraction] 26.3 % Abnormal 34.0 - 46.0 % [facility] To Get Approved For [facility]; [employer] [facility] Work Phone: Hemoglobin (Bld) [Mass/Vol] 8.9 g/dL Abnormal 12.0 - 16.0 g/dL [facility] To Get Approved For [facility]; [employer] [facility] To Get Approved For [facility] Work Phone: Lymphocytes (Bld) [#/Vol] 1.80 {3/UL} Normal 0.80 - 2.80 {3/UL} [facility] To Get Approved For [facility]; [employer]. Work Phone: Lymphocytes/100 WBC (Bld) 16.8 % Abnormal 20.0 - 45.0 % [facility] To Get Approved For [facility]; [employer] Work Phone: MCH (RBC) [Entitic mass] 29 pg Normal 27 - 33 pg [facility] To Get Approved For [facility]; [employer] [facility] Work Phone: MCHC (RBC) [Mass/Vol] 34 {X10_3} Normal 32 - 3 6 {X10_3} [facility] To Get Approved For [facility]; [employer]. Work Phone: MCV (RBC) [Entitic vol] 86 fL Normal 80 - 99 fL [facility] To Get Approved For [facility]; [employer] Work Phone: Monocytes (Bld) [#/Vol] 0.70 {3/UL} Normal 0.20 - 1.00 {3/UL} [facility] To Get Approved For [facility]; [employer]. Work Phone: Monocytes/100 WBC (Bld) 6.4 % Normal 0.0 - 10.0 % [facility] To Get Approved For [facility]; [employer]. Work Phone: Morphology Noah (Bld) [Interp] N/A Normal [facility] To Get Approved For [facility]; [employer]. Work Phone: Neutrophils (Bld) [#/Vol] 8.30 {3/UL} Abnormal 1.50 - 7.10 {3/UL} [facility] To Get Approved For [facility]; [employer]. Work Phone: Neutrophils/100 WBC (Bld) 76.3 % Abnormal 46.0 - 76.0 % [facility] To Get Approved For [facility]; [employer]. Work Phone: Platelet mean volume (Bld) [Entitic vol] 7.2 fL Normal 6.6 - 10.5 fL [facility] To Get Approved For [facility]; [employer]. Work Phone: Platelets (Bld) [#/Vol] 207 {3/UL} Normal 150 - 450 {3/UL} [facility] [employer].; [employer] Work Phone: RBC (Bld) [#/Vol] 3.06 {6/UL} Abnormal 4.10 - 5.3 0 {6/UL} [facility] Work Phone: WBC (Bld) [#/Vol] 10.9 {3/UL} Abnormal 4.5 - 10.8 {3/UL} [facility].; [facility] Card To Get Approved For [facility]. Work Phone: No Panel Informationon 06-16 MANUAL DIFF N/A Normal [facility]; [facility] Card To Get Approved For [facility] Work Phone: Laboratory - Blood bankon ABO group Nom (Bld) AB Normal [facility]; [facility] Work Phone: Blood group antibody screen Ql Negative Normal [facility]; [facility] To Get Approved For [facility] Work Phone: Blood type and Indirect antibody screen panel (Bld) Normal [facility]; [facility] Card To Get Approved For [facility]. Work Phone: Rh Nom (Bld) Positive Normal [facility]; [facility] Card To Get Approved For [facility]. Work Phone: Laboratory - Hematology and Cell countson 06-15-2021 Basophils (Bld) [#/Vol] 0.00 {3/UL} Normal 0.00 - 0.10 {3/UL} [facility]; [facility] To Get Approved For [facility]. Work Phone: Basophils/100 WBC (Bld) 0.4 % Normal 0.0 - 2.0 % [facility]; [facility] To Get Approved For [facility]. Work Phone: CBC W Auto Differential panel (Bld) CBC + DIFF Normal [facility]; [facility] To Get Approved For [facility] Work Phone: Eosinophils (Bld) [#/Vol] 0.10 {3/UL} Normal 0.00 - 0.50 {3/UL} [facility]; [facility] To Get Approved For [facility] Work Phone: Eosinophils/100 WBC (Bld) 0.9 % Normal 0.0 - 7.0 % [facility]; [facility] To Get Approved For [facility] Work Phone: Erythrocyte distribution width (RBC) [Ratio] 14.3 % Normal 12.0 - 15.6 % [facility] To Get Approved For [facility]; [facility] To Get Approved For [facility] Work Phone: Hematocrit (Bld) [Volume fraction] 33.0 % Abnormal 34.0 - 46.0 % [facility] To Get Approved For [facility]; [facility] To Get Approved For [facility] Work Phone: Hemoglobin (Bld) [Mass/Vol] 10.9 g/dL Abnormal 12.0 - 16.0 g/dL [facility]; [facility] To Get Approved For [facility] Work Phone: Lymphocytes (Bld) [#/Vol] 2.30 {3/UL} Normal 0.80 - 2.80 {3/UL} [facility] To Get [facility]ved For [facility]; [facility] To Get Approved For [facility] Work Phone: Lymphocytes/100 WBC (Bld) 28.8 % Normal 20.0 - 45.0 % [facility] To Get Approved For [facility]; [facility] To Get Approved For [facility] Work Phone: MCH (RBC) [Entitic mass] 28 pg Normal 27 - 33 pg [facility] To Get Approved For [facility]; [facility] To Get Approved For [facility] Work Phone: MCHC (RBC) [Mass/Vol] 33 {X10_3} Normal 32 - 3 6 {X10_3} [facility] To Get Approved For [facility]; [facility] To Get Approved For [facility] Work Phone: MCV (RBC) [Entitic vol] 86 fL Normal 80 - 99 fL [facility] To Get Approved For [facility]; [facility] To Get Approved For [facility] Work Phone: Monocytes (Bld) [#/Vol] 0.60 {3/UL} Normal 0.20 - 1.00 {3/UL} [facility] To Get [facility]ved For [facility]; [facility] [employer]. Work Phone: Monocytes/100 WBC (Bld) 8.0 % Normal 0.0 - 10.0 % [facility] To Get Approved For [facility].; [facility] To Get Approved For [facility]. Work Phone: Morphology Noah (Bld) [Interp] N/A Normal [facility] To Get Approved For [facility].; [employer]. Work Phone: Neutrophils (Bld) [#/Vol] 5.00 {3/UL} Normal 1.50 - 7.10 {3/UL} [facility] To Get Approved For [facility].; [facility]. Work Phone: Neutrophils/100 WBC (Bld) 61.9 % Normal 46.0 - 76.0 % [facility] To Get Approved For [facility].; [employer]. Work Phone: Platelet mean volume (Bld) [Entitic vol] 7.4 fL Normal 6.6 - 10.5 fL [facility] To Get Approved For [facility].; [employer]. Work Phone: Platelets (Bld) [#/Vol] 215 {3/UL} Normal 150 - 450 {3/UL} [facility] To Get Approved For [facility].; [employer]. Work Phone: RBC (Bld) [#/Vol] 3.85 {6/UL} Abnormal 4.10 - 5.3 0 {6/UL} [facility] To Get Approved For [facility].; [employer]. Work Phone: WBC (Bld) [#/Vol] 8.0 {3/UL} Normal 4.5 - 10.8 {3/UL} [facility] To Get Approved For [facility].; [employer]. Work Phone: No Panel Informationon 06-15 MANUAL DIFF N/A Normal [facility] To Get Approved For [facility]; [employer]. Work Phone: Laboratory - Urinalysison Glucose Test strip (U) [Mass/Vol] Negative Normal [facility] To Get Approved For [facility]; [employer]. Protein Ql (U) Negative Normal [facility] To Get [facility]ved For [facility].; [employer] [facility] To Get Approved For [facility]. Laboratory - Urinalysison Glucose Test strip (U) [Mass/Vol] Negative Normal [facility] To Get Approved For [facility]. Protein Ql (U) trace Normal [facility] To Get Approved For [facility].; [employer] [facility] To Get Approved For [facility]. Laboratory - Microbiology an d Antimicrobial susceptibilityon 05-20-2021 S. agalactiae Org specific cx Ql (Vag fld) CULTURE GBS SCREEN Normal [facility] To Get Approved For [facility]. Laboratory - Urinalysison Glucose Test strip (U) [Mass/Vol] Negative Normal [facility] To Get Approved For [facility].; [facility] To Get Approved For [facility]. Protein Ql (U) trace Normal [facility] To Get Approved For [facility].; [employer] [facility] To Get Approved For [facility]. Laboratory - Urinalysison Glucose Test strip (U) [Mass/Vol] Negative Normal [facility] To Get Approved For [facility].; [employer] [facility] To Get Approved For [facility]. Protein Ql (U) Negative Normal [facility] To Get Approved For [facility].; [employer] [facility] To Get Approved For [facility]. Laboratory - Chemistry and C hemistry - challengeon 03-25-2021 Glucose [Mass/Vol] 122 mg/dL Normal [facility] To Get Approved For [facility]. Laboratory - Hematology and Cell countson 03-25-2021 Hemoglobin (Bld) [Mass/Vol] 10.6 g/dL Abnormal 11.7 - 15.5 g/dL [facility] To Get Approved For [facility].; [facility] To Get Approved For [facility]. Laboratory - Urinalysison Glucose Test strip (U) [Mass/Vol] Negative Normal [facility] To Get Approved For [facility].; [employer] [facility] To Get Approved For [facility]. Protein Ql (U) Negative Normal [facility] To Get Approved For [facility].; [employer] [facility] To Get Approved For [facility]. Laboratory - Urinalysison Glucose Test strip (U) [Mass/Vol] Negative Normal [facility] To Get Approved For [facility].; [employer]. Protein Ql (U) Negative Normal [facility] To Get Approved For [facility].; [employer] [facility]. Laboratory - Blood bankon ABO group Nom (Bld) AB Normal [facility] For [facility].; [employer] Rh Nom (Amn fld) Positive Normal [facility].; [employer] Laboratory - Chemistry and C hemistry - challengeon 01-01-2021 Bilirubin Ql (U) Negative Normal [facility].; [place] Ketones Ql (U) Negative Normal [facility].; [place] pH (U) 7.0 [pH] Normal [facility] To Get Approved For [facility].; [employer] Specific gravity (U) [Rel density] 1.025 Normal [facility]; [employer] Urobilinogen Qn (U) 0.556368005 {Rachel'U}/dL Normal [facility] To Get Approved For [facility].; [employer]. Laboratory - Hematology and Cell countson 01-01-2021 Basophils (Bld) [#/Vol] 0.016 10*3/uL Normal 0 - 200 {cells/uL} [facility] To Get Approved For [facility].; [employer]. Basophils/100 WBC (Bld) 0.2 % Normal [facility] To Get Approved For [facility].; [employer]. Eosinophils (Bld) [#/Vol] 0.08 10*3/uL Normal 15 - 500 {cells/uL} [facility].; [employer]. Eosinophils/100 WBC (Bld) 1.0 % Normal [facility] [employer] [facility].; [employer]. Erythrocyte distribution width (RBC) [Ratio] 13.6 % Normal 11.0 - 15.0 % [employer] [facility].; [employer]. Hematocrit (Bld) [Volume fraction] 34.0 % Abnormal 35.0 - 45.0 % [facility].; [employer]. Hemoglobin (Bld) [Mass/Vol] 11.4 g/dL Abnormal 11.7 - 15.5 g/dL [facility] [employer] [facility].; [employer]. Hemoglobin Ql (U) Negative Normal [employer] [facility].; [employer]. Lymphocytes (Bld) [#/Vol] 2.216 10*3/uL Normal 850 - 3900 {cells/uL} [facility] To Get Approved For [facility].; [employer] [facility], [facility]. Lymphocytes/100 WBC (Bld) 27.7 % Normal [facility] To Get Approved For [facility].; [employer], [employer]. MCH (RBC) [Entitic mass] 27.9 pg Normal 27.0 - 33.0 pg [facility] To Get Approved For [facility].; [employer], [facility]. MCHC (RBC) [Mass/Vol] 33.5 g/dL Normal 32.0 - 36.0 g/dL [facility], [facility].; [employer], [facility]. MCV (RBC) [Entitic vol] 83.1 fL Normal 80.0 - 100.0 fL [facility] To Get Approved For [facility].; [employer], [facility]. Monocytes (Bld) [#/Vol] 0.568 10*3/uL Normal 200 - 950 {cells/uL} [facility] To Get Approved For [facility].; [employer], [facility]. Monocytes/100 WBC (Bld) 7.1 % Normal [facility] Card To Get Approved For [facility].; [employer], [facility]. Neutrophils (Bld) [#/Vol] 5.12 10*3/uL Normal 1500 - 7800 {cells/uL} [employer] [facility] To Get Approved For [facility].; [employer] Neutrophils/100 WBC (Bld) 64 % Normal [facility] Card To Get Approved For [facility].; [employer] Platelet mean volume (Bld) [Entitic vol] 9.5 fL Normal 7.5 - 12.5 fL [employer] [facility].; [employer], [facility]. Platelets (Bld) [#/Vol] 285 10*3/uL Normal 140 - 400 [employer] [facility].; [employer] RBC (Bld) [#/Vol] 4.09 10*6/uL Normal 3.80 - 5.1 0 {Million/uL} [employer] [facility], [facility].; [employer] WBC (Bld) [#/Vol] 8.0 10*3/uL Normal 3.8 - 10.8 [employer], [employer]. Laboratory - Specimen inform [facility] 01-01-2021 Appearance (U) clear Normal [facility] To Get Approved For [facility].; [employer] Color (U) yellow Normal [facility] To Get Approved For [facility]; [employer] [facility] Laboratory - Urinalysison Glucose Test strip (U) [Mass/Vol] Negative Normal [facility] Card To Get Approved For [facility].; [employer] [facility] To Get Approved For [facility]. Leukocyte esterase Test strip Ql (U) small Abnormal [facility]; [employer] [facility]. Nitrite Ql (U) Negative Normal [facility].; [employer]. Protein Ql (U) trace Normal [facility] To Get Approved For [facility].; [employer] [facility]. No Panel Informationon 01-01 ANTIBODY SCREEN, RBC W/REFL ID, TITER AND AG Detected Normal [facility] To Get Approved For [facility]; [employer] [facility] To Get Approved For [facility] HEPATITIS B SURFACE ANTIGEN Non-Reactive Normal [facility]; [employer] [facility] To Get Approved For [facility] RPR (DX) W/REFL TITER AND CONFIRMATORY TESTING Non-Reactive Normal [facility] To Get Approved For [facility]; [employer] RUBELLA AB (IGG), IMMUNE STATUS <0.90 Abnormal [facility] To Get Approved For [facility]; [employer] [facility] Credit Card To Get Approved For [facility]. TSH W/REFLEX TO FT4 0.79 {mIU/L} Normal [facility] Get [facility] For [facility]; [employer] [facility]. PREG SERUM QUANTon 9 HCG QUANTITATIVE 1.89 mIU/mL Normal [facility] Comment on above: Result Comment: Danielle inman Range: Male: <5 Female: Non: <5 1 - 7 days : 5 - 50 1 - 2 weeks: 50 - 500 2 - 3 weeks: 100 - 5000 3 - 4 weeks: 500 - 10,000 4 - 5 weeks: 1000 - 50,000 5 - 6 weeks: 10,000 - 100,000 6 - 8 weeks: 15,000 - 200,000 2 - 3 months: 10,000 - 100,000 2ND TRIMESTER 3000-50,000 3RD TRIMESTER 1000-50,000 Performed By: #### 2 [id number] #### [facility],[address] [place] [address] CULTURE GBS SCREENo n 03-20-2019 CULTURE GBS SCREEN CULTURE GBS SCREEN _VAGINAL GROUP B STREP CULTURE_ M I C R O B I O L O G Y R E P O R T FINAL Antimicrobial Susceptibility and Organism Identification Report Specimen Number : [id number] Requested : 03/20/19 Specimen Source : Vaginal Collected : 03/20/19 11:38 [place] of Isolation : OUTPATIENT Received : 03/20/19 11:38 Requesting Physician : LOLA Patient/Specimen Tests and Comments Specimen Comments FINAL REPORT: Positive for Group B Strep Tech : ____ Source : Vaginal ID # : [id number] FINAL Report Date : / / : Collected : 03/20/19 11:38 03/23/19.1145.KLS. 03/22/19.1222.KLS. 03/23/19.1145.KLS.COMP LETE Normal [facility] Comment on above: Performed By: #### 2 29879 #### [facility],[address] [place] [address] CBC + DIFFon 01-02-2019 CELL COUNT 100 Normal [facility] Comment on above: Performed By: #### 2 84665 #### [facility],[address] [place] [address]2912 EO 1.0 % Normal 0.0 - 4.0 [facility] Comment on above: Performed By: #### 2 57989 #### [facility],[address] [place] [address]1533 MONOS 10 % High 0 - 8 [facility] Comment on above: Performed By: #### 2 50189 #### [facility],[address] [place] [address] 04677 SEGS 68 % Normal 50 - 70 [facility] Comment on above: Performed By: #### 2 47126 #### [facility],[address] [place] [address] 93910 Basophils (Bld) [#/Vol] 0.00 x10EE3/UL Normal 0.00 - 0.10 [facility] Comment on above: Performed By: #### 2 94620 #### [facility],[address] [place] [address] 28306 Basophils/100 WBC (Bld) 0.4 % Normal 0.0 - 2.0 [facility] Comment on above: Performed By: #### 2 91270 #### [facility],[address] [place] [address] CBC + DIFF Normal [facility] Comment on above: Result Comment: CBC- COMPLETE BLOOD COUNT Performed By: #### 2 14134 #### [facility],[address] [place] [address] Eosinophils (Bld) [#/Vol] 0.10 x10EE3/UL Normal 0.00 - 0.50 [facility] Comment on above: Performed By: #### 2 67019 #### [facility],[address] [place], [place] [address] Eosinophils/100 WBC (Bld) 0.9 % Normal 0.0 - 7.0 [facility] Comment on above: Performed By: #### 2 27781 #### [facility],[address] [place] [address] Erythrocyte distribution width (RBC) [Ratio] 14.5 % Normal 12.0 - 15.6 [facility] Comment on above: Performed By: #### 2 45112 #### [place] [address] Hematocrit (Bld) [Volume fraction] 31.0 % Low 34.0 - 46.0 [facility] Comment on above: Performed By: #### 2 25032 #### [facility],[address] [place], [place] [id number] Hemoglobin (Bld) [Mass/Vol] 10.7 g/dL Low 12.0 - 16.0 [facility] Comment on above: Performed By: #### 2 87509 #### [place] [id number] Lymphocytes (Bld) [#/Vol] 1.60 x10EE3/UL Normal 0.80 - 2.80 [facility] Comment on above: Performed By: #### 2 25895 #### [facility],[address] [place] [address] Lymphocytes/100 WBC (Bld) 21 % Normal 20 - 40 [facility] Comment on above: Performed By: #### 2 92543 #### [facility],[address] [place] [address] Lymphocytes/100 WBC (Bld) 17.8 % Low 20.0 - 45.0 [facility] Comment on above: Performed By: #### 2 52686 #### [facility],[address] [place] [address] MANUAL DIFF SEE BELOW Normal [facility] Comment on above: Performed By: #### 2 90276 #### [facility],[address] [place] [address] MCH (RBC) [Entitic mass] 30 pg Normal 27 - 33 [facility] Comment on above: Performed By: #### 2 88902 #### [facility],[address] [place] [address] MCHC (RBC) [Mass/Vol] 35 X10 3 Normal 32 - 36 [facility] Comment on above: Performed By: #### 2 50444 #### [facility],[address] [place] [address] MCV (RBC) [Entitic vol] 87 fL Normal 80 - 99 [facility] Comment on above: Performed By: #### 2 27321 #### [facility],[address] [place], [place] [address] Monocytes (Bld) [#/Vol] 0.70 x10EE3/UL Normal 0.20 - 1.00 [facility] Comment on above: Performed By: #### 2 76340 #### [facility],[address] [place], [place] [address] MONOS % 8.0 % Normal 0.0 - 10.0 [facility] Comment on above: Performed By: #### 2 26223 #### [facility],[address] [place] [address]14 Morphology Noah (Bld) [Interp] REVIEWED Normal [facility] Comment on above: Performed By: #### 2 39783 #### [facility],[address] [place] [address]4566 Neutrophils (Bld) [#/Vol] 6.60 x10EE3/UL Normal 1.50 - 7.10 [facility] Comment on above: Performed By: #### 2 29811 #### [facility],[address] [place] [address] 81044 Neutrophils/100 WBC (Bld) 72.9 % Normal 46.0 - 76.0 [facility] Comment on above: Performed By: #### 2 30228 #### [facility],[address] [place] [address] 37849 Platelet mean volume (Bld) [Entitic vol] 7.5 fL Normal 6.6 - 10.5 [facility] Comment on above: Result Comment: AUTO MATED DIFFERENTIAL Performed By: #### 2 52959 #### [facility],[address] [place] [address] 31442 Platelets (Bld) [#/Vol] 240 x10EE3/UL Normal 150 - 450 [facility] Comment on above: Performed By: #### 2 08123 #### [facility],[address] [place] [address]6490 RBC (Bld) [#/Vol] 3.56 x 10EE6/UL Low 4.10 - 5.30 [facility] Comment on above: Performed By: #### 2 78775 #### [address] [address] WBC (Bld) [#/Vol] 9.1 x 10EE3/UL Normal 4.5 - 10.8 [facility] Comment on above: Performed By: #### 2 23714 #### [facility],[address] [place] [address] GLUCOSE CHALLENGE 50GM 1 WIL Matt 01-02-2019 Glucose [Mass/Vol] Normal [facility] Comment on above: Result Comment: GLUC OSE CHALLENGE 50 GMS 1 HOUR Performed By: #### 2 68609 #### [facility],[address] [place] [address]164 Glucose [Mass/Vol] 74 mg/dL Normal 70 - 140 [facility] Comment on above: Performed By: #### 2 58028 #### [facility],[address] [place] [address] US OB INITIAL >or= 14 WEEKS; 1st GESTATon 12-06-2018 OB INITIAL >or= 14 WEEKS; [address] [place] [address] Patient: SHERI SOUTH Phone#: : 1990 Age: 28 Gender: F Pt. Type: Out Account: [id number] Location: Ordering: Host Committee Exam Date: 12/06/2018/8:30 Family Phys: DEBORA MCCRACKEN Charge Code: 883536 Physician: [place] Order #: [id number] DLP Dose#: PROCEDURE: OB INITIAL >14 WEEKS ULTRASOUND, TRANSABDOMINAL COMPARISON: None. INDICATIONS: Anatomy TECHNIQUE: Complete sonographic examination for obstetrical and evaluation were completed by transabdominal ultrasound. FINDINGS: NUMBER: Single. POSITION: Vertex AMNIOTIC FLUID VOLUME: Normal for age with ANGELA of 15.5 cm. PLACENTA LOCATION: Posterior. Distal margin of the placenta is 2.5 cm from the internal os. BIPARIETAL DIAMETER: 23 weeks 2 days HEAD CIRCUMFERENCE: 23 weeks 4 days ABD CIRCUMFERENCE: 22 weeks 6 days FEMUR LENGTH: 23 weeks one day ESTIMATED WEIGHT: 560 g/1 lb. 4 oz. CERVICAL LENGTH: 4.2 cm HEART RATE: 142 bpm ANATOMY: The following structures are normal for age unless specified below: Ventricles, posterior fossa, spine, four chamber heart, thorax, abdomen, cord, stomach, kidneys, and bladder. ABNORMALITIES/OTHER: None. CLINICAL GA: 22 weeks 6 days CLINICAL AKIRA: 04/05/2019 ULTRASOUND GA: 23 weeks 2 days ULTRASOUND AKIRA: 04/02/2019 CONCLUSION: 1. SLIUP 23 weeks 2 days, AKIRA 04/02/2019. Continued Report - Page 2 of 2 Patient: SHERI SOUTH Phone#: : 1990 Age: 28 Gender: F Pt. Type: Out Account: [id number] Location: Ordering: Host Committee Exam Date: 12/06/2018/8:30 Family Phys: DEBORA MCCRACKEN Charge Code: 105311 Physician: [place] Order #: [id number] DLP Dose#: Dictated by: Veronica Dennis MD on 12/06/2018 at 9:56 Approved by: Veronica Dennis MD on 12/06/2018 at 9:56 Normal [facility] GC/CHLAM AMPLIFICATION SWAB [CCL]on 11-10-2018 GC/CHLAM AMPLIFICATION SWAB [CCL] Normal [facility] Comment on above: Result Comment: _GC/ CHLAMYDIA AMPLIFICATION [CCL]_ GC/CHLAM AMPLIFICATION SWAB [CCL] Reported: 11/09/2018 18:50 Status=F TEST RESULT FLAG RANGE UNITS GC/Chlam Amp Source VAGINAL SWAB 11/09/18.rfl.COMPLETE.ATLR GC Amplification *See Below* 11/09/18.rfl.COMPLETE.ATLR Negative for Neisseria gonorrhoeae by amplification. Chlamydia Amplif *See Below* 11/09/18.1852.rfl.COMPLETE.ATLR Negative for Chlamydia trachomatis by amplification. [facility] [address] [place] [address] Mitali Monge M.D. [id number] Performed By: #### 2 10786 #### [place] [address] HEP B SURFACE AG [CCL]on HEP B SURFACE AG [CCL] Normal [facility] Comment on above: Result Comment: _HEP B SURFACE AG [CCL]_ Performed By: #### 2 93919 #### [place] [address] REFLEX HBSAGC? NO Normal [facility] Comment on above: Result Comment: HEP B SURFACE AG [CCL] Reported: 11/09/2018 15:24 Status=F TEST RESULT FLAG RANGE UNITS Hepatitis B Surf. Ag Negative NEGAT 11/09/18.1528.[email or web address].ATLR [facility] [address] [place] [address] Mitali Monge M.D. [id number] Performed By: #### 2 [id number] #### [facility],[address] [place], [place] [id number] Hepatitis B Surf. Agon 11-09 Hepatitis B Surf. Ag NEGAT Normal Negative [facility] RPRon 11-09-2018 Reagin Ab RPR Ql (S) NR Normal Non Reactive Cl [facility] RPR [CCL]on 11-09-2018 Reagin Ab RPR Ql (S) Normal [facility] Comment on above: Result Comment: _RPR [CCL]_ RPR [CCL] Reported: 11/09/2018 15:24 Status=F TEST RESULT FLAG RANGE UNITS RPR Non Reactive NR 11/09/18.1528.[email or web address] [address] Mitali Monge M.D. [id number] Performed By: #### 2 35941 #### [facility],[address] [place], [place] [id number] RUBELLA IgG ANTIBODY [CCL]on 11-09-2018 RUBELLA IgG ANTIBODY [CCL] Normal [facility] Comment on above: Result Comment: _RUB RANI IGG ANTIBODY [CCL]_ RUBELLA IgG ANTIBODY [CCL] Reported: 11/09/2018 15:24 Status=F TEST RESULT FLAG RANGE UNITS Rubella IgG Ab, Qual Negative NEGAT 11/09/18.1528.[email or web address].ATLR Sample is considered negative for IgG antibodies to rubella virus. A negative result presumes that immunity has not been acquired. If exposure to rubella virus is suspected despite a negative finding, a second specimen should be collected and tested one to two weeksn later. Seroconversion from a negative specimen to a positive specimen is evidence of either recent infection, response to vaccination, or administration of immunoglobulins. Rubella IgG Ab 0.10 Index 11/09/18.1528.rfl.COMPLETE.ATLR Value Index values are interpreted as follows: Negative specimens <0.90 Equivocol specimens 0.90 to 0.99 Positive specimens >0.99 The magnitude of the measured result is not indicative of the amount of antibody present. [facility] [address] [place] [address] Mitali Monge M.D. [id number] Performed By: #### 2 85552 #### [place] [address] Rubella IgG Antibodyon 11-09 Rubella IgG Ab 0.10 Index Value Normal [facility] Rubella IgG Ab, Qual Negative Normal Negative [facility] BB ABO RHon 11-08-2018 ABO AB Normal [facility] Comment on above: Performed By: #### 2 81709 #### [place] [id number] ABO and Rh group Nom (Bld) Normal [facility] Comment on above: Result Comment: EILEEN AGUSTIN Performed By: #### 2 89655 #### [address],[place] [address] Rh Nom (Bld) Positive Normal [facility] Comment on above: Performed By: #### 2 09666 #### [facility],[address] [place] [address] BB ANTIBODY SCREENon 019 ANTIBODY SCR Negative Normal negative [facility] Comment on above: Performed By: #### 2 31640 #### [facility],[address] [place] [address] CBCon 11-08-2018 Basophils (Bld) [#/Vol] 0.00 x10EE3/UL Normal 0.00 - 0.10 [facility] Comment on above: Performed By: #### 2 87073 #### [facility],[address] [place], [place] [id number] Basophils/100 WBC (Bld) 0.2 % Normal 0.0 - 2.0 [facility] Comment on above: Performed By: #### 2 38113 #### [facility],[address] [place] [address] CBC Normal [facility] Comment on above: Result Comment: CBC- COMPLETE BLOOD COUNT Performed By: #### 2 45146 #### [facility],[address] [place], [place] [id number] Eosinophils (Bld) [#/Vol] 0.10 x10EE3/UL Normal 0.00 - 0.50 [facility] Comment on above: Performed By: #### 2 89481 #### [facility],[address] [place] [address] Eosinophils/100 WBC (Bld) 0.8 % Normal 0.0 - 7.0 [facility] Comment on above: Performed By: #### 2 61228 #### [facility],[address] [place] [address] Erythrocyte distribution width (RBC) [Ratio] 14.0 % Normal 12.0 - 15.6 [facility] Comment on above: Performed By: #### 2 64130 #### [facility],[address] [place] [address] Hematocrit (Bld) [Volume fraction] 32.8 % Low 34.0 - 46.0 [facility] Comment on above: Performed By: #### 2 55738 #### [facility],[address] [place] [address] Hemoglobin (Bld) [Mass/Vol] 11.3 g/dL Low 12.0 - 16.0 [facility] Comment on above: Performed By: #### 2 19114 #### [facility],[address] [place], [place] [id number] Lymphocytes (Bld) [#/Vol] 1.80 x10EE3/UL Normal 0.80 - 2.80 [facility] Comment on above: Performed By: #### 2 51219 #### [facility],[address] [place], [place] [address] Lymphocytes/100 WBC (Bld) 19.0 % Low 20.0 - 45.0 [facility] Comment on above: Performed By: #### 2 85566 #### [facility],[address] [place] [address] MANUAL DIFF N/A Normal [facility] Comment on above: Performed By: #### 2 71955 #### [facility],[address] [place] [address] 24258 MCH (RBC) [Entitic mass] 29 pg Normal 27 - 33 [facility] Comment on above: Performed By: #### 2 27523 #### [facility],[address] [place] [address] MCHC (RBC) [Mass/Vol] 34 X10 3 Normal 32 - 36 [facility] Comment on above: Performed By: #### 2 65076 #### [facility],[address] [place] [address]61 MCV (RBC) [Entitic vol] 84 fL Normal 80 - 99 [facility] Comment on above: Performed By: #### 2 35894 #### [facility],[address] [place] [address] Monocytes (Bld) [#/Vol] 0.60 x10EE3/UL Normal 0.20 - 1.00 [facility] Comment on above: Performed By: #### 2 46811 #### [facility],[address] [place] [address] MONOS % 6.2 % Normal 0.0 - 10.0 [facility] Comment on above: Performed By: #### 2 27791 #### [facility],[address] [place] [address] Morphology Noah (Bld) [Interp] N/A Normal [facility] Comment on above: Performed By: #### 2 69372 #### [facility],[address] [place] [address] Neutrophils (Bld) [#/Vol] 6.90 x10EE3/UL Normal 1.50 - 7.10 [facility] Comment on above: Performed By: #### 2 37706 #### [facility],[address] [place] [address]25 Neutrophils/100 WBC (Bld) 73.8 % Normal 46.0 - 76.0 [facility] Comment on above: Performed By: #### 2 26030 #### [facility],[address] [place] [address]31 Platelet mean volume (Bld) [Entitic vol] 7.6 fL Normal 6.6 - 10.5 [facility] Comment on above: Result Comment: AUTO MATED DIFFERENTIAL Performed By: #### 2 74254 #### [facility],[address] [place] [address] 70358 Platelets (Bld) [#/Vol] 260 x10EE3/UL Normal 150 - 450 [facility] Comment on above: Performed By: #### 2 48744 #### [facility],[address] [place] [address] 80196 RBC (Bld) [#/Vol] 3.93 x 10EE6/UL Low 4.10 - 5.30 [facility] Comment on above: Performed By: #### 2 04805 #### [facility],[address] [place] [address] 86298 WBC (Bld) [#/Vol] 9.3 x 10EE3/UL Normal 4.5 - 10.8 [facility] Comment on above: Performed By: #### 2 08796 #### [facility],[address] [place], [place] [address] T4-FREE (FREE THYROXINE)on 0 11-08-2018 Free T4 [Mass/Vol] 0.77 ng/dL Normal 0.61 - 1.12 [facility] Comment on above: Result Comment: *SPE CIMENS FROM PATIENTS WHO ARE UNDERGOING BIOTIN THERAPY AND/OR INGESTING BIOTIN SUPPLEMENTS MAY HAVE FALSE HIGH RESULTS. Performed By: #### 2 69509 #### [facility],[address] [place] [address] 65879 TSHon 11-08-2018 TSH Qn 0.93 uIU/ml Normal 0.34 - 5.60 [facility] Comment on above: Performed By: #### 2 31854 #### [facility],[address] [place], [place] [address] Vital Signs Date Time Vital Sign Value Performing Clinician Facility 03-04-2025 14:18040 Body height 160.[address] Lan Simmons MD Work Phone: [facility] 03-04-2025 14:18040 Body mass index (BMI) [Ratio] 34 kg/m2 Dr. Lan Simmons MD Work Phone: [facility] 03-04-2025 14:18040 Body weight 87.[address] Lan Simmons MD Work Phone: [facility] 03-04-2025 14:18-0400 Diastolic blood pressure 71 mm[Hg] Dr. Lan Simmons MD Work Phone: 2(706)538-321137 [place] [address] 03-04-2025 14:18-0400 Heart rate 98 /min Dr. Lan Simmons MD Work Phone: 2(159)716-409537 [place] [address] 03-04-2025 14:18-0400 Respiratory rate 16 /min Dr. Lan Simmons MD Work Phone: 3(129)664-048437 [place] [address] 03-04-2025 14:18-0400 SaO2% (BldA) [Mass fraction] 95 % Dr. Lan Simmons MD Work Phone: 4(486)899-529537 [place] [address] 03-04-2025 14:18-0400 Systolic blood pressure 110 mm[Hg] Dr. Lan Simmons MD Work Phone: 4(158)013-774637 [place] [address] 02-18-2025 10:50-0400 Body height 160.[address] Lan Simmons MD Work Phone: 0(882)701-078837 [place] [address] 02-18-2025 10:50-0400 Body mass index (BMI) [Ratio] 34.7 kg/m2 Dr. Lan Simmons MD Work Phone: 2(645)291-650737 [place] [address] 02-18-2025 10:50-0400 Body weight 89.[address] Lan Simmons MD Work Phone: 6(886)540-906837 [place] [address] 02-18-2025 10:50-0400 Diastolic blood pressure 78 mm[Hg] Dr. Lan Simmons MD Work Phone: 5(967)013-985937 [place] [address] 02-18-2025 10:50-0400 Heart rate 86 /min Dr. Lan Simmons MD Work Phone: 7(632)584-206437 [place] [address] 02-18-2025 10:50-0400 Respiratory rate 18 /min Dr. Lan Simmons MD Work Phone: 6(096)023-394937 [place] [address] 02-18-2025 10:50-0400 SaO2% (BldA) [Mass fraction] 98 % Dr. Lan Simmons MD Work Phone: 8(410)772-314137 [place] [address] 02-18-2025 10:50-0400 Systolic blood pressure 115 mm[Hg] Dr. Lan Simmons MD Work Phone: [facility] 02-13-2025 07:43-0400 Body weight 88.45 kg Edy Kingsley RN [employer] 02-13-2025 07:43-0400 Diastolic blood pressure 76 mm[Hg] Edy Kingsley RN [employer]. Comment on above: Patient Position: Sitting; Cuff Location : Left Arm; Cuff Size: Standard 02-13-2025 07:43-0400 Heart rate 71 /min Edy Kingsley RN [employer] Comment on above: Pattern: Regular 02-13-2025 07:43-0400 Systolic blood pressure 115 mm[Hg] Edy Kingsley RN [employer]. Comment on above: Patient Position: Sitting; Cuff Location : Left Arm; Cuff Size: Standard 02-07-2025 10:17-0400 Body weight 87.54 kg Edy Kingsley RN [employer] 02-07-2025 10:17-0400 Diastolic blood pressure 73 mm[Hg] Edy Kingsley RN [employer]. Comment on above: Patient Position: Sitting; Cuff Location : Left Arm; Cuff Size: Standard 02-07-2025 10:17-0400 Heart rate 73 /min Edy Kingsley RN [employer]. Comment on above: Pattern: Regular 02-07-2025 10:17-0400 Systolic blood pressure 114 mm[Hg] Edy Kingsley RN [employer] Comment on above: Patient Position: Sitting; Cuff Location : Left Arm; Cuff Size: Standard 01-31-2025 11:16-0400 Body height 160.[address] Lan Simmons MD Work Phone: [facility] 01-31-2025 11:16-0400 Body mass index (BMI) [Ratio] 34 kg/m2 Dr. Lan Simmons MD Work Phone: [facility] 01-31-2025 11:16-0400 Body weight 87.[address] Lan Simmons MD Work Phone: [facility] 01-31-2025 11:16-0400 Diastolic blood pressure 79 mm[Hg] Dr. Lan Simmons MD Work Phone: 2(439)561-655374 [address] 01-31-2025 11:16-0400 Heart rate 78 /min Dr. Lan Simmons MD Work Phone: 1(950)110-919237 [place] [address] 01-31-2025 11:16-0400 Respiratory rate 18 /min Dr. Lan Simmons MD Work Phone: 4(484)525-928774 [address] 01-31-2025 11:16-0400 SaO2% (BldA) [Mass fraction] 98 % Dr. Lan Simmons MD Work Phone: 3(531)097-927574 [address] 01-31-2025 11:16-0400 Systolic blood pressure 114 mm[Hg] Dr. Lan Simmons MD Work Phone: 3(589)153-856874 [address] 01-28-2025 11:30-0400 Body weight 87.09 kg Valerie Galarza MA [facility] 01-28-2025 11:30-0400 Diastolic blood pressure 77 mm[Hg] Valerie Galarza MA [facility], [facility] Comment on above: Patient Position: Sitting; Cuff Location : Left Arm; Cuff Size: Standard 01-28-2025 11:30-0400 Heart rate 80 /min Valerie Galarza MA [facility] [employer] [facility] Comment on above: Pattern: Regular 01-28-2025 11:30-0400 Systolic blood pressure 128 mm[Hg] Valerie Galarza MA [facility] Comment on above: Patient Position: Sitting; Cuff Location : Left Arm; Cuff Size: Standard 01-14-2025 16:00-0400 Body temperature 97.8 [degF] Dr. Lna Simmons MD Work Phone: [facility] 01-14-2025 16:00-0400 Diastolic blood pressure 75 mm[Hg] Dr. Lan Simmons MD Work Phone: [facility] 01-14-2025 16:00-0400 Heart rate 81 /min Dr. Lan Simmons MD Work Phone: [facility] 01-14-2025 16:00-0400 Respiratory rate 16 /min Dr. Lan Simmons MD Work Phone: 2(494)629-031103 [place] [address] 01-14-2025 16:00-0400 Systolic blood pressure 121 mm[Hg] Dr. Lan Simmons MD Work Phone: 0(480)122-952403 [place] [address] 01-14-2025 07:50-0400 SaO2% (BldA) [Mass fraction] 97 % Dr. Lan Simmons MD Work Phone: 8(978)292-758503 [place] [address] 01-11-2025 22:39-0400 Body temperature 97.2 [degF] Dr. Lan Simmons MD Work Phone: 3(488)000-366103 [place] [address] 01-11-2025 22:39-0400 Diastolic blood pressure 77 mm[Hg] Dr. Lan Simmons MD Work Phone: 4(567)329-100303 [place] [address] 01-11-2025 22:39-0400 Heart rate 77 /min Dr. Lan Simmons MD Work Phone: 7(055)521-600303 [place] [address] 01-11-2025 22:39-0400 Respiratory rate 16 /min Dr. Lan Simmons MD Work Phone: [facility] 01-11-2025 22:39-0400 SaO2% (BldA) [Mass fraction] 98 % Dr. Lan Simmons MD Work Phone: [facility] 01-11-2025 22:39-0400 Systolic blood pressure 113 mm[Hg] Dr. Lan Simmons MD Work Phone: [facility] 01-11-2025 19:33-0400 Body height 160.[address] Lan Simmons MD Work Phone: [facility] 01-11-2025 14:31-0400 Body mass index (BMI) [Ratio] 33.7 kg/m2 Dr. Lan Simmons MD Work Phone: 6(705)968-022674 [address] 01-11-2025 14:31-0400 Body weight 86.[address] Lan Simmons MD Work Phone: 1(208)504-307674 [address] 01-11-2025 14:31-0400 Diastolic blood pressure 68 mm[Hg] Dr. Lan Simmons MD Work Phone: 7(970)497-964274 [address] 01-11-2025 14:31-0400 Heart rate 100 /min Dr. Lan Simmons MD Work Phone: 2(033)699-168274 [address] 01-11-2025 14:31-0400 Respiratory rate 16 /min Dr. Lan Simmons MD Work Phone: 9(014)472-028374 [address] 01-11-2025 14:31-0400 SaO2% (BldA) [Mass fraction] 98 % Dr. Lan Simmons MD Work Phone: 4(778)272-307574 [address] 01-11-2025 14:31-0400 Systolic blood pressure 101 mm[Hg] Dr. Lan Simmons MD Work Phone: 1(792)953-649003 [place] [address] 12-31-2024 15:17-0400 Body weight 88.91 kg Nisha Walton LPN [facility] 12-31-2024 15:17-0400 Diastolic blood pressure 66 mm[Hg] Nisha Walton LPN [facility] Comment on above: Patient Position: Sitting; Cuff Location : Left Arm; Cuff Size: Standard 12-31-2024 15:17-0400 Heart rate 106 /min Nisha Walton LPN [facility] Comment on above: Pattern: Regular 12-31-2024 15:17-0400 Systolic blood pressure 101 mm[Hg] Nisha Walton LPN [facility] [employer] Comment on above: Patient Position: Sitting; Cuff Location : Left Arm; Cuff Size: Standard 12-03-2024 13:58-0400 Body weight 91.63 kg Orin Alicea SAL[employer] Work Phone: [facility] [employer] [facility] 12-03-2024 13:58-0400 Diastolic blood pressure 65 mm[Hg] Orin Deanne SALES [employer] Work Phone: [facility] [employer]. Comment on above: Patient Position: Sitting; Cuff Location : Left Arm; Cuff Size: Thigh 12-03-2024 13:58-0400 Heart rate 116 /min Orin Deanne SALES [employer] Work Phone: [facility] Comment on above: Pattern: Regular 12-03-2024 13:58-0400 Systolic blood pressure 95 mm[Hg] Orin Deanne SAL[employer] Work Phone: [facility].; [employer] [facility]. Comment on above: Patient Position: Sitting; Cuff Location : Left Arm; Cuff Size: Thigh 11-29-2024 13:07-0400 Body height 160 cm Georges Marin MD MPH Work Phone: [facility] 11-29-2024 13:07-0400 Body mass index (BMI) [Ratio] 35.96 kg/m2 Georges Marin MD MPH Work Phone: [facility] 11-29-2024 13:07-0400 Body temperature 97.5 [degF] Georges Marin MD MPH Work Phone: [facility] 11-29-2024 13:07-0400 Body weight 92.08 kg Georges Marin MD MPH Work Phone: [facility] 11-29-2024 13:07-0400 Diastolic blood pressure 66 mm[Hg] Georges Marin MD MPH Work Phone: [facility] 11-29-2024 13:07-0400 Heart rate 65 /min Georges Marin MD MPH Work Phone: [facility] 11-29-2024 13:07-0400 Respiratory rate 16 /min Georges Marin MD MPH Work Phone: [facility] 11-29-2024 13:07-0400 Systolic blood pressure 105 mm[Hg] Georges Marin MD MPH Work Phone: [facility] 11-05-2024 10:44-0500 Body weight 92.08 kg Valerie Galarza MA [facility] [employer] 11-05-2024 10:44-0500 Diastolic blood pressure 74 mm[Hg] Valerie Galarza MA [facility] [employer] Comment on above: Patient Position: Sitting; Cuff Location : Left Arm; Cuff Size: Standard 11-05-2024 10:44-0500 Heart rate 99 /min Valerie Galarza MA [employer] [facility] [employer]. Comment on above: Pattern: Regular 11-05-2024 10:44-0500 Systolic blood pressure 112 mm[Hg] Valerie Galarza MA [employer] [facility] [employer]. Comment on above: Patient Position: Sitting; Cuff Location : Left Arm; Cuff Size: Standard 10-08-2024 08:46-0500 Body height 160.02 cm Valerie Galarza MA [employer] [facility] [employer] 10-08-2024 08:46-0500 Body mass index (BMI) [Ratio] 35.61 kg/m2 Valerie Galarza MA [employer] [facility] [employer] 10-08-2024 08:46-0500 Body surface area Derived from formula 1.94 m2 Valerie Galarza MA [employer] [facility] [employer] 10-08-2024 08:46-0500 Body weight 91.17 kg Valerie Galarza MA [employer] 10-08-2024 08:46-0500 Diastolic blood pressure 74 mm[Hg] Valerie Galarza MA [facility]. Comment on above: Patient Position: Sitting; Cuff Location : Left Arm; Cuff Size: Standard 10-08-2024 08:46-0500 Heart rate 92 /min Valerie Galarza MA [facility] [employer]. Comment on above: Pattern: Regular 10-08-2024 08:46-0500 Systolic blood pressure 113 mm[Hg] Valerie Galarza MA [facility] [employer] [facility]. Comment on above: Patient Position: Sitting; Cuff Location : Left Arm; Cuff Size: Standard 10-02-2024 12:16-0500 Body temperature 97 [degF] Margarito Berkowitz MD Work Phone: [facility] 10-02-2024 12:16-0500 Diastolic blood pressure 74 mm[Hg] Margarito Berkowitz MD Work Phone: [facility] 10-02-2024 12:16-0500 Heart rate 103 /min Margarito Berkowitz MD Work Phone: [facility] 10-02-2024 12:16-0500 Respiratory rate 16 /min Margarito Berkowitz MD Work Phone: [facility] 10-02-2024 12:16-0500 SaO2% (BldA) [Mass fraction] 95 % Margarito Berkowitz MD Work Phone: [facility] 10-02-2024 12:16-0500 Systolic blood pressure 113 mm[Hg] Margarito Berkowitz MD Work Phone: [facility] 09-26-2024 21:20-0500 Body height 160 cm Margarito Berkowitz MD Work Phone: [facility] 09-26-2024 21:20-0500 Body mass index (BMI) [Ratio] 37.2 kg/m2 Margarito Berkowitz MD Work Phone: [facility] 09-26-2024 21:20-0500 Body weight 95.25 kg Margarito Berkowitz MD Work Phone: [facility] 08-30-2024 14:34-0500 Body mass index (BMI) [Ratio] 38.81 kg/m2 Georges Marin MD MPH Work Phone: [facility] 08-30-2024 14:34-0500 Body temperature 97.7 [degF] Georges Marin MD MPH Work Phone: [facility] 08-30-2024 14:34-0500 Body weight 99.38 kg Georges Marin MD MPH Work Phone: [facility] 08-30-2024 14:34-0500 Diastolic blood pressure 77 mm[Hg] Georges Marin MD MPH Work Phone: [facility] 08-30-2024 14:34-0500 Heart rate 105 /min Georges Marin MD MPH Work Phone: [facility] 08-30-2024 14:34-0500 SaO2% (BldA) [Mass fraction] 98 % Georges Marin MD MPH Work Phone: [facility] Comment on above: ra 08-30-2024 14:34-0500 Systolic blood pressure 114 mm[Hg] Georges Marin MD MPH Work Phone: [facility] 05-24-2024 14:07-0400 Body height 160 cm Georges Marin MD MPH Work Phone: [facility] 05-24-2024 14:07-0400 Body mass index (BMI) [Ratio] 34.19 kg/m2 Georges Marin MD MPH Work Phone: [facility] 05-24-2024 14:07-0400 Body temperature 97.7 [degF] Georges Marin MD MPH Work Phone: [facility] 05-24-2024 14:07-0400 Body weight 87.54 kg Georges Marin MD MPH Work Phone: [facility] 05-24-2024 14:07-0400 Diastolic blood pressure 77 mm[Hg] Georges Marin MD MPH Work Phone: [facility] 05-24-2024 14:07-0400 Heart rate 92 /min Georges Marin MD MPH Work Phone: [facility] 05-24-2024 14:07-0400 SaO2% (BldA) [Mass fraction] 98 % Georges Marin MD MPH Work Phone: [facility] 05-24-2024 14:07-0400 Systolic blood pressure 115 mm[Hg] Georges Marin MD MPH Work Phone: [facility] 02-24-2024 15:55-0400 Body temperature 97.7 [degF] Glory Damon MD Work Phone: [facility] 02-24-2024 15:55-0400 Diastolic blood pressure 74 mm[Hg] Glory Damon MD Work Phone: [facility] 02-24-2024 15:55-0400 Heart rate 104 /min Glory Damon MD Work Phone: [facility] 02-24-2024 15:55-0400 Respiratory rate 18 /min Glory Damon MD Work Phone: [facility] 02-24-2024 15:55-0400 SaO2% (BldA) [Mass fraction] 98 % Glory Damon MD Work Phone: [facility] 02-24-2024 15:55-0400 Systolic blood pressure 116 mm[Hg] Glory Damon MD Work Phone: [facility] 02-21-2024 17:48-0400 Body height 160 cm Glory Damon MD Work Phone: [facility] 02-21-2024 17:48-0400 Body mass index (BMI) [Ratio] 35.07 kg/m2 Glory Damon MD Work Phone: [facility] 02-21-2024 17:48-0400 Body weight 89.81 kg Glory Damon MD Work Phone: [facility] 11-11-2023 11:02-0500 Body height 160.02 cm Valerie Galarza MA [employer] [facility] [employer] 11-11-2023 11:02-0500 Body mass index (BMI) [Ratio] 37.6 kg/m2 Valerie Galarza MA [employer] [facility] [employer] 11-11-2023 11:02-0500 Body surface area Derived from formula 1.98 m2 Valerie Galarza MA [employer] [facility] [employer]. 11-11-2023 11:02-0500 Body temperature 97.7 [degF] Valerie Galarza MA [employer]. 11-11-2023 11:02-0500 Body weight 96.28 kg Valerie Galarza MA [employer] [facility].; [employer]. 11-11-2023 11:02-0500 Diastolic blood pressure 79 mm[Hg] Valerie Galarza MA [employer] [place] [facility].; [employer]. Comment on above: Patient Position: Sitting; Cuff Location : Left Arm; Cuff Size: Standard 11-11-2023 11:02-0500 Heart rate 105 /min Valerie Galarza MA [employer]. Comment on above: Pattern: Regular 11-11-2023 11:02-0500 Inhaled oxygen concentration 20 % Valerie Galarza MA [employer].; [employer]. Comment on above: Room air 11-11-2023 11:02-0500 Inhaled oxygen concentration 21 % Valerie Galarza MA [employer].; [employer]. Comment on above: Room air 11-11-2023 11:02-0500 SaO2% (BldA) [Mass fraction] 97 % Valerie Galarza MA [facility] Florida[facility].; [place] [facility]. 11-11-2023 11:02-0500 Systolic blood pressure 115 mm[Hg] Valerie Galarza MA [facility] FloridaK[facility] Software.; [employer]. Comment on above: Patient Position: Sitting; Cuff Location : Left Arm; Cuff Size: Standard 07-15-2023 08:17-0400 Body height 160.02 cm Valerie Galarza MA [facility] Florida[facility].; [employer]. 07-15-2023 08:17-0400 Body mass index (BMI) [Ratio] 42.23 kg/m2 Valerie Galarza MA [facility] Florida[facility].; [employer] [facility]. 07-15-2023 08:17-0400 Body surface area Derived from formula 2.08 m2 Valerie Galarza MA [facility] FloridaEasiest Credit Card To Get Approved For [facility].; [place] [facility]. 07-15-2023 08:17-0400 Body weight 108.13 kg Valerie Galarza MA [facility] FloridaK[employer] [employer].; [employer]. 07-15-2023 08:17-0400 Diastolic blood pressure 81 mm[Hg] Valerie Galarza MA [employer] [facility].; [employer]. Comment on above: Patient Position: Sitting; Cuff Location : Left Arm; Cuff Size: Standard 07-15-2023 08:17-0400 Heart rate 76 /min Valerie Galarza MA [facility] FloridaK[employer] [employer].; [employer]. Comment on above: Pattern: Regular 07-15-2023 08:17-0400 Systolic blood pressure 138 mm[Hg] Valerie Galarza MA [employer] [facility].; [employer]. Comment on above: Patient Position: Sitting; Cuff Location : Left Arm; Cuff Size: Standard 07-26-2022 13:50-0500 Body height 160.02 cm Malathi Wolfe RN [employer] [facility].; [employer]. 07-26-2022 13:50-0500 Body mass index (BMI) [Ratio] 40.74 kg/m2 Malathi Wolfe RN [employer].; [employer]. 07-26-2022 13:50-0500 Body surface area Derived from formula 2.05 m2 Malathi Wolfe RN [facility] Florida[facility].; [employer] [facility]. 07-26-2022 13:50-0500 Body temperature 98.6 [degF] Malathi Wolfe RN [employer] [facility].; [employer]. Comment on above: Method: Tympanic 07-26-2022 13:50-0500 Body weight 104.33 kg Malathi Wolfe RN [facility] FloridaK[employer].; [employer]. 07-26-2022 13:50-0500 Diastolic blood pressure 69 mm[Hg] Malathi Wolfe RN [employer] [facility].; [place] [employer]. Comment on above: Patient Position: Sitting; Cuff Location : Left Arm; Cuff Size: Large 07-26-2022 13:50-0500 Heart rate 85 /min Malathi Wolfe RN [facility] FloridaK[employer].; [employer]. Comment on above: Pattern: Regular 07-26-2022 13:50-0500 Systolic blood pressure 104 mm[Hg] Malathi Wolfe RN [employer] [facility].; [place] [employer]. Comment on above: Patient Position: Sitting; Cuff Location : Left Arm; Cuff Size: Large 08-26-2021 15:03-0500 Body height 160.02 cm Orin 365looks [facility] Work Phone: [employer] [facility].; [place] [employer]. 08-26-2021 15:03-0500 Body mass index (BMI) [Ratio] 40.92 kg/m2 [facility] Work Phone: [employer] [facility].; [employer]. 08-26-2021 15:03-0500 Body surface area Derived from formula 2.06 m2 [facility] Work Phone: [employer].; [employer]. 08-26-2021 15:03-0500 Body weight 104.78 kg [facility] Work Phone: [employer]. 08-26-2021 15:03-0500 Diastolic blood pressure 85 mm[Hg] Orin Deanne [employer] Work Phone: [employer]. Comment on above: Patient Position: Sitting; Cuff Location : Left Arm; Cuff Size: Standard 08-26-2021 15:03-0500 Heart rate 82 /min Orin Deanne [employer] Work Phone: [employer].; [employer]. Comment on above: Pattern: Regular 08-26-2021 15:03-0500 Systolic blood pressure 129 mm[Hg] Orin Deanne [employer] Work Phone: [employer].; [employer]. Comment on above: Patient Position: Sitting; Cuff Location : Left Arm; Cuff Size: Standard 06-24-2021 [id number] Body weight 97.98 kg Hamida Zaugg [employer]. 06-24-2021 09:11-0400 Diastolic blood pressure 73 mm[Hg] Hamida Zaugg [employer].; [employer]. Comment on above: Patient Position: Sitting; Cuff Location : Left Arm; Cuff Size: Standard 06-24-2021 09:11-0400 Heart rate 79 /min Hamida Zaugg [employer].; [employer]. Comment on above: Pattern: Regular 06-24-2021 09:11-0400 Systolic blood pressure 115 mm[Hg] Hamida Zaugg [employer].; [employer]. Comment on above: Patient Position: Sitting; Cuff Location : Left Arm; Cuff Size: Standard 06-10-2021 08:27-0400 Body weight 106.6 kg Hamida Zaugg [employer]. 06-10-2021 08:27-0400 Diastolic blood pressure 73 mm[Hg] Hamida Zaugg [employer].; [employer]. Comment on above: Patient Position: Sitting; Cuff Location : Left Arm; Cuff Size: Standard 06-10-2021 08:27-0400 Heart rate 86 /min Hamida Zaugg [employer] [facility], [employer].; [employer]. Comment on above: Pattern: Regular 06-10-2021 08:27-0400 Systolic blood pressure 109 mm[Hg] Hamida Zaugg [employer]. Comment on above: Patient Position: Sitting; Cuff Location : Left Arm; Cuff Size: Standard 06-03-2021 08:04-0400 Body weight 105.69 kg Hamida Zaugg [employer].; [employer]. 06-03-2021 08:04-0400 Diastolic blood pressure 75 mm[Hg] Hamida Zaugg SAL[employer]. Comment on above: Patient Position: Sitting; Cuff Location : Left Arm; Cuff Size: Standard 06-03-2021 08:04-0400 Heart rate 91 /min Hamida Zaugg [employer]. Comment on above: Pattern: Regular 06-03-2021 08:04-0400 Systolic blood pressure 117 mm[Hg] Hamida Zaugg [employer].; [employer]. Comment on above: Patient Position: Sitting; Cuff Location : Left Arm; Cuff Size: Standard 05-20-2021 [id number] Body weight 104.33 kg Hamida Zaugg [employer]. 05-20-2021 11:10-0400 Diastolic blood pressure 76 mm[Hg] Hamida Zaugg [employer].; [employer]. Comment on above: Patient Position: Sitting; Cuff Location : Left Arm; Cuff Size: Standard 05-20-2021 11:10-0400 Heart rate 78 /min Hamida Zaugg [employer]. Comment on above: Pattern: Regular 05-20-2021 11:10-0400 Systolic blood pressure 119 mm[Hg] Hamida Zaugg SALES EXEC [facility], [facility].; [employer] [employer] [facility], [employer]. Comment on above: Patient Position: Sitting; Cuff Location : Left Arm; Cuff Size: Standard 04-22-2021 10:35-0400 Body weight 102.97 kg Keila Becerraтатьянаmarilin IVANA [facility], Inc.; [employer] 04-22-2021 10:35-0400 Diastolic blood pressure 76 mm[Hg] Keilagoyo Christianson IVANA [facility], [facility].; [employer], [employer]. Comment on above: Patient Position: Sitting; Cuff Location : Left Arm; Cuff Size: Standard 04-22-2021 10:35-0400 Heart rate 79 /min Keila Hernanlaina HEATH [facility], [facility].; [place] [employer]. Comment on above: Pattern: Regular 04-22-2021 10:35-0400 Systolic blood pressure 112 mm[Hg] Keilagoyo Christianson SALES EX[employer] [facility], [facility].; [place] [employer] Comment on above: Patient Position: Sitting; Cuff Location : Left Arm; Cuff Size: Standard 03-25-2021 09:00-0400 Body weight 102.97 kg Hamida Mcdermottugg IVANA [facility], [facility].; [employer] [facility]. 03-25-2021 09:00-0400 Diastolic blood pressure 68 mm[Hg] Hamida Sharronugg IVANA [facility], [facility].; [employer], [employer]. Comment on above: Patient Position: Sitting; Cuff Location : Left Arm; Cuff Size: Standard 03-25-2021 09:00-0400 Heart rate 90 /min Hamida Sharronugg IVANA [facility], [facility].; [employer]. Comment on above: Pattern: Regular 03-25-2021 09:00-0400 Systolic blood pressure 119 mm[Hg] Hamida Zaugg SAL[employer] [facility], [facility].; [employer]. Comment on above: Patient Position: Sitting; Cuff Location : Left Arm; Cuff Size: Standard 02-12-2021 09:46-0400 Body height 160.02 cm Orin Alicea LPN Work Phone: [facility]. 02-12-2021 09:46-0400 Body mass index (BMI) [Ratio] 39.15 kg/m2 Orin Deanne [employer] Work Phone: [employer]; [employer]. 02-12-2021 09:46-0400 Body surface area Derived from formula 2.02 m2 Orin Deanne [employer] Work Phone: [employer]; [employer]. 02-12-2021 09:46-0400 Body weight 100.25 kg Orin Deanne [employer] Work Phone: [employer]; [employer]. 02-12-2021 09:46-0400 Diastolic blood pressure 72 mm[Hg] Orin Deanne SAL[employer] Work Phone: [employer]; [employer]. Comment on above: Patient Position: Sitting; Cuff Location : Left Arm; Cuff Size: Large 02-12-2021 09:46-0400 Heart rate 83 /min Orin Nicholsy SAL[employer] Work Phone: [employer]; [employer]. Comment on above: Pattern: Regular 02-12-2021 09:46-0400 Systolic blood pressure 111 mm[Hg] Orin Deanne SAL[employer] EX[employer] Work Phone: [employer]; [employer]. Comment on above: Patient Position: Sitting; Cuff Location : Left Arm; Cuff Size: Large 01-01-2021 09:40-0400 Body weight 100.7 kg Keila Christianson LPN [employer].; [employer]. 01-01-2021 09:40-0400 Diastolic blood pressure 74 mm[Hg] Keilagoyo Howelly SALES EXEC [employer]. Comment on above: Patient Position: Sitting; Cuff Location : Left Arm; Cuff Size: Standard 01-01-2021 09:40-0400 Heart rate 72 /min Keilagoyo Christianson LPN [facility]. Comment on above: Pattern: Regular 01-01-2021 09:40-0400 Systolic blood pressure 129 mm[Hg] Keila Christianson LPN [facility] Comment on above: Patient Position: Sitting; Cuff Location : Left Arm; Cuff Size: Standard Encounters Encounter Date Encounter Type Care Provider Facility Start: 03-04-2025 End: 03-04-[address] Lan Simmons MD Work Phone: [facility] Work Phone: Start: 03-04-2025 End: 03-04-2025 Patient encounter procedure Yoanna VILLARREAL -[facility] Work Phone: Start: 02-21-2025 End: 02-23-2025 Evaluation and management of inpatient CEASAR PAZ [facility] Start: 02-21-2025 End: 02-21-2025 ambulatory LAN SIMMONS [facility] Start: 02-18-2025 End: 02-18-[address] Lan Simmons MD Work Phone: [facility] Work Phone: Start: 02-18-2025 End: 02-18-2025 Patient encounter procedure Yoanna VILLARREAL -[facility] Work Phone: Start: 02-18-2025 End: 02-18-2025 ambulatory Yoanna Tejeda Facility:[facility] Start: 02-13-2025 End: 02-13-2025 Office outpatient visit 15 minutes Jane MORELAND-C Work Phone: [facility] Start: 02-13-2025 Review Jane Tesfaye P A-C Work Phone: [facility] Start: 02-07-2025 End: 02-07-2025 Office outpatient visit 15 minutes Jane Tesfaye PA-C Work Phone: [facility], [employer]. Start: 02-05-2025 ambulatory JANE TESFAYE [facility] Start: 02-04-2025 End: 02-04-2025 Patient encounter procedure Yoanna VILLARREAL -Laboratory Work Phone: Start: 02-04-2025 End: 02-04-2025 ambulatory Yoanna Tejeda Facility:[facility] Start: 01-31-2025 End: 01-31-[address] Lan Simmons MD Work Phone: [facility] Work Phone: Start: 01-31-2025 End: 01-31-2025 Patient encounter procedure Yoanna VILLARREAL -[facility] Work Phone: Start: 01-31-2025 End: 01-31-2025 ambulatory Yoanna Tejeda Facility:[facility] Start: 01-28-2025 End: 01-28-2025 Office outpatient visit 15 minutes Jane Tesfaye PA-C Work Phone: [facility] [facility] Start: 01-14-2025 ambulatory Yoanna Salazar Facility:[facility] Start: 01-14-2025 Non-patient / Non-visit Dr. Cyrus Salazar DO [facility] Start: 01-14-2025 End: 01-14-2025 Evaluation and management of inpatient Dr. Yoanna Salazar DO [facility] Work Phone: Start: 01-13-2025 ambulatory Yoanna Salazar Facility:[facility] Start: 01-13-2025 Non-patient / Non-visit Dr. Cyrus Salazar DO [facility] Start: 01-12-2025 ambulatory Yoanna Salazar Facility:[facility] Start: 01-12-2025 Non-patient / Non-visit Ruben Head nd [facility] Start: 01-12-2025 ambulatory Yoanna Salazar Facility:[facility] Start: 01-12-2025 Non-patient / Non-visit Dr. Cyrus Salazar DO [facility] Start: 01-11-2025 End: 01-11-2025 Emergency department patient visit Dr. Lan Simmons MD Work Phone: -Emergency Department Work Phone: Start: 01-11-2025 End: 01-11-2025 Patient encounter procedure Yoanna Tejeda INDUSTRIAL [employer] CONSULTANT-C -Laboratory Work Phone: Start: 01-11-2025 End: 01-11-2025 Patient encounter procedure Yoanna Tejeda INDUSTRIAL METHODS CONSULTANT-C -[facility] Work Phone: Start: 01-11-2025 End: 01-11-2025 ambulatory Yoanna Tejeda Facility:[facility] Start: 01-11-2025 End: 01-11-2025 ambulatory Yoanna Tejeda Facility:[facility] Start: 01-01-2025 End: 01-01-2025 Orders Jane Tesfaye PA-C Work Phone: [employer]. Start: 12-31-2024 End: 12-31-2024 Office outpatient visit 15 minutes Jane Tesfaye PA-C Work Phone: [employer]. Start: 12-31-2024 Review Jane Tesfaye P A-C Work Phone: [employer]. Start: 12-19-2024 End: 12-19-2024 ambulatory LAN SIMMONS [facility] Start: 12-03-2024 End: 12-03-2024 Patient encounter procedure Jane Tesfaye PA-C Work Phone: [employer]. Start: 11-29-2024 End: 11-29-2024 Office outpatient visit 25 minutes Georges Marin MD MPH Work Phone: [facility] Comment on above: Crohn's disease of b oth small and large intestine with fistula (Multi) (Primary Dx) Start: 11-29-2024 End: 11-29-2024 ambulatory GEORGES MARIN [facility] Start: 11-12-2024 End: 11-12-2024 ambulatory DERRELL TRISTAN [facility] Start: 11-12-2024 End: 11-12-2024 Subsequent hospital visit by physician V[facility] Comment on above: Screening, , for anatomic survey ([facility]); Obesity affecting in second trimester ([facility]); FH: Crohn's disease Start: 11-05-2024 End: 11-05-2024 Office outpatient visit 15 minutes Jane Tesfaye PA-C Work Phone: [facility] Start: 10-08-2024 End: 10-08-2024 Office outpatient visit 25 minutes Jane Tesfaye PA-C Work Phone: [employer] [facility] Start: 10-08-2024 Review Jane Tesfaye P A-C Work Phone: [employer] [facility] Start: 09-27-2024 End: 10-02-2024 Evaluation and management of inpatient Margarito Berkowitz MD Work Phone: [facility] 4 Comment on above: Exacerbation of Croh n's disease with complication (Multi) (Primary Dx); Gastrointestinal Crohn's disease; Crohn disease of upper gastrointestinal tract Start: 08-30-2024 End: 08-30-2024 Office outpatient visit 40 minutes Georges Marin MD MPH Work Phone: [facility] Jim Comment on above: Crohn's disease of b oth small and large intestine with fistula (Multi) (Primary Dx) Start: 08-30-2024 End: 08-30-2024 ambulatory GEORGES Zarco [facility] Start: 06-13-2024 End: 06-13-2024 Subsequent hospital visit by physician Candace [facility] [address] [facility] Jen Comment on above: Inflammatory bowel d isease Start: 06-13-2024 End: 06-13-2024 ambulatory EDY PELAYO [facility] Start: 05-24-2024 End: 05-24-2024 ambulatory [facility] Start: 05-24-2024 End: 05-24-2024 Office outpatient visit 40 minutes Georges Marin MD MPH Work Phone: [facility] Jim Comment on above: Inflammatory bowel d isease (Primary Dx) Start: 05-24-2024 End: 05-24-2024 ambulatory GEORGES Carolee [facility] Start: 04-26-2024 End: 04-26-2024 ambulatory TOBY Zarco [facility] Start: 03-20-2024 End: 03-20-2024 ambulatory [facility] Start: 03-15-2024 End: 03-15-2024 ambulatory [facility] Start: 03-15-2024 End: 03-15-2024 ambulatory GEORGES K [facility] Start: 03-02-2024 End: 03-02-2024 Telephone follow-up Jane Tesfaye PA-C Work Phone: [employer]. Start: 02-21-2024 End: 02-21-2024 Emergency department patient visit LORY MARTINEZ [facility] Start: 02-21-2024 End: 02-24-2024 Evaluation and management of inpatient Glory Daomn MD Work Phone: [facility] [place] 8 Comment on above: Necrotizing fasciiti s (Multi) (Primary Dx); Post-operative state Start: 02-15-2024 End: 02-15-2024 Telephone follow-up Jane Tesfaye PA-C Work Phone: [employer] Start: 12-02-2023 End: 12-02-2023 Medication Jane Tesfaye PA-C Work Phone: [employer] Start: 11-11-2023 End: 11-11-2023 Medication Jane Tesfaye PA-C Work Phone: [employer]. Start: 11-11-2023 Review Jane Tesfaye P A-C Work Phone: [employer] Start: 11-11-2023 End: 11-11-2023 Office outpatient visit 15 minutes Jane Tesfaye PA-C Work Phone: [employer] Start: 11-11-2023 Review Jane Tesfaye P A-C Work Phone: [employer]. Start: 08-19-2023 End: 08-19-2023 Orders Jane Tesfaye PA-C Work Phone: [employer] Start: 07-15-2023 End: 07-15-2023 Office outpatient visit 15 minutes Jane Tesfaye PA-C Work Phone: [employer] Start: 07-26-2022 End: 07-26-2022 Office outpatient visit 15 minutes Jane Tesfaye PA-C Work Phone: [employer] Start: 08-26-2021 End: 08-26-2021 Patient encounter procedure Jane Tesfaye PA-C Work Phone: [employer] Start: 06-24-2021 End: 06-24-2021 Patient encounter procedure Jane Tesfaye PA-C Work Phone: [employer] Start: 06-10-2021 End: 06-10-2021 Office outpatient visit 15 minutes Jane Tesfaye PA-C Work Phone: [employer] Start: 06-03-2021 End: 06-03-2021 Office outpatient visit 15 minutes Jane Tesfaye PA-C Work Phone: [employer]. Start: 05-20-2021 End: 05-20-2021 Office outpatient visit 15 minutes Jane Tesfaye PA-C Work Phone: [employer] Start: 04-22-2021 End: 04-22-2021 Office outpatient visit 15 minutes Jane Tesfaye PA-C Work Phone: [employer] Start: 03-25-2021 End: 03-25-2021 Office outpatient visit 15 minutes Jane Tesfaye PA-C Work Phone: [employer] Start: 02-12-2021 End: 02-12-2021 Patient encounter procedure Jane Tesfaye PA-C Work Phone: [employer] Start: 01-01-2021 End: 01-01-2021 Office outpatient visit 25 minutes Jane Tesfaye PA-C Work Phone: [employer] Start: 10-30-2019 End: 10-30-2019 Orders Jane Tesfaye PA-C Work Phone: [employer] Start: 05-31-2019 End: 05-31-2019 Patient encounter procedure BRANDEN CNM [facility] Start: 04-05-2019 Evaluation and management of inpatient CRYSTAL CNM [facility] Start: 03-20-2019 End: 03-20-2019 Patient encounter procedure JOSHUA CNM [facility] Start: 01-02-2019 End: 01-02-2019 Patient encounter procedure CRYSTAL CNM [facility] Start: 12-06-2018 End: 12-06-2018 Patient encounter procedure CRYSTAL CNM [facility] Start: 11-08-2018 End: 11-08-2018 Patient encounter procedure CRYSTAL CNM [facility] Procedures Date Procedure Procedure Detail Performing Clinician Start: 03-04-2025 Flow cytometry cell surf marker techl only 1st Dr. Lan Simmons MD Work Phone: Start: 03-04-2025 Total iron binding capacity measurement Dr. Lan Simmons MD Work Phone: Start: 02-18-[address] Lan Simmons MD Work Phone: Comment on above: Test Ordered: [id number] Adalimumab Drug + A ntibodyAdalimumab Drug Level 1.9 ug/mL ES Reference Range: .Quantitation Limit: <0.6 ug/mLResults of 0.6 or higher indicate detection of adalimumab.Comments: - The optimal drug concentration depends upon patient- specific factors including the disease and desired therapeutic endpoint. - Maintenance trough concentrations >=7.5 may correspond to higher remission rates.(1) - Mucosal healing may be more likely in patients with maintenance trough levels >8.14.(2) - In rheumatoid arthritis, trough levels of 5-8 are associated with clinical (EULAR) response.(3) - This assay measures the antibody-unbound (free) fraction of adalimumab when serum anti-adalimumab antibodies are present.Anti-Adalimumab Antibody <25 ng/mL ES Reference Range: . Interpretation: The above result is an UNDETECTED Antibody titer Quantitation Limit: <25 ng/mL. Results of 25 or higher indicate detection of anti- adalimumab antibodies. 25 - 100 ng/mL: LOW titer 101 - 300 ng/mL: INTERMEDIATE titer 301 or greater ng/mL: HIGH titerComments: - Anti-drug antibody levels should be interpreted in the context of the concomitant free drug trough concentration. - Low anti-drug antibodies may be transient while high titers are likely to be more consequential.(4-6) - Some immunogenicity is reversible. Elimination of intermediate titer (and even some high titer) anti-adalimumab antibodies has been achieved with dose escalation and/or methotrexate or 6-MP.(7) - This anti-adalimumab antibody assay is drug tolerant, and all positive results are verified for anti-drug specificity by a confirmatory test.References:1. Marysol Cifuentes, et al. AGA Review on TDM in IBD. Gastroenterol 2017;153:835-857.2. Anna E, et al. J Crohns Col 2016;10(5):510-515.3. Yury MF, et al. Neisha Rheum Dis 2015;74:513-518.4. Bartkareems GM, et al. RODRIGO 2011;305(14):4709-5794.5. Steenholdt C, et al. J Clin Gastroenterol 2016; 50:482-489.6. Ángel H, et al. Clin Gastroenterol Hepatol 2015; 13(3):522-530.7. Fawad A, et al. Gastroenterol 2019;156(6):S-617.These tests were developed and their performancecharacteristics determined by [facility]. They have not beencleared or approved by the Food and Drug Administration.However, these electrochemiluminescence immunoassay (ECLIA)measurements of adalimumab and anti-adalimumab antibody(constituting DoseASSURE ADL) have been developed andvalidated in accordance with CLIA (Clinical LaboratoryImprovement Amendments) and the FDA Guidance document, AssayDevelopment and Validation for Immunogenicity Testing ofTherapeutic Protein Products (2019).Performed at: [facility] [id number] [place], [place] [id number] Director: aNte Lyons MD, Phone: [phone] at: - [facility] [address] [id number] Director: Pepe Tolentino PhD, Phone: [phone] Start: 02-13-2025 End: 02-13-2025 nonstress test Crystal K Uptain CNM Work Phone: Start: 02-13-2025 End: 02-13-2025 Ob care antepartum vag dlvr & Crystal K Uptain CNM Work Phone: Start: 02-07-2025 End: 02-07-2025 nonstress test Crystal K Uptain CNM Work Phone: Start: 02-07-2025 End: 02-07-2025 Ob care antepartum vag dlvr & Crystal K Uptain CNM Work Phone: Start: 01-28-2025 End: 01-28-2025 Ob care antepartum vag dlvr & Crystal K Uptain CNM Work Phone: Start: 01-12-2025 Iadna-dna/rna gi pthgn multiplex probe tq 6-11 Dr. Lan Simmons MD Work Phone: Start: 01-12-2025 Albumin/Globulin ratio Dr. Lan Simmons MD Work Phone: Start: 01-12-[address] Lan Simmons MD Work Phone: Comment on above: The atypical pANCA pattern has been obse rved in asignificant percentage of patients with ulcerative colitis,primary sclerosing cholangitis and autoimmune hepatitis.Performed at: [address] [id number] Director: Pepe Tolentino PhD, Phone: [phone] Start: 01-12-2025 Antibody to centromere measurement Dr. Kendall Simmons MD Work Phone: Start: 01-12-2025 Antibody to extractable nuclear antigen measurement Dr. Lan Simmons MD Work Phone: Start: 01-12-2025 Antibody to ALESIA-[address] Lan Simmons MD Work Phone: Start: 01-12-2025 Antibody to lupus La protein measurement Dr. Lan Simmons MD Work Phone: Start: 01-12-2025 Antibody to SS-A measurement Dr. Lan Simmons MD Work Phone: Start: 01-12-[address] Lan Simmons MD Work Phone: Start: 01-12-[address] Lan Simmons MD Work Phone: Start: 01-12-[address] Lan Simmons MD Work Phone: Start: 01-12-2025 Hepatitis A virus antibody, IgM type Dr. Lan Simmons MD Work Phone: Comment on above: A negative anti-HAV IgM result suggests no recent orcurrent HAV infection. Start: 01-12-2025 Hepatitis B core antibody measurement, IgM type Dr. Lan Simmnos MD Work Phone: Start: 01-12-2025 Hepatitis C antibody measurement Dr. Lawrence Simmons MD Work Phone: Start: 01-12-2025 Immunoglobulin G subclass, G4 measurement Dr. Lan Simmons MD Work Phone: Start: 01-12-[address] Lan Simmons MD Work Phone: Start: 01-12-2025 In-vitro immunologic test Dr. Lan Simmons MD Work Phone: Comment on above: QuantiFERON-TB Gold Plus is a qualitativ e indirect test forM tuberculosis infection (including disease) and isintended for use in conjunction with risk assessment,radiography, and other medical and diagnostic evaluations.The QuantiFERON-TB Gold Plus result is determined bysubtracting the Nil value from either TB antigen (Ag)value. The Mitogen tube serves as a control for the test. No response to M tub erculosis antigens detected.Infection with M tuberculosis is unlikely, but high riskindividuals should be considered for additional testing(ATS/IDSA/CDC Clinical Practice Guidelines, 2017). Thereference range is an Antigen minus Nil result of <0.35IU/mL.The specimen received for QuantiFERON testing was incubatedby the ordering institution. Specific procedures outlinedin our Directory of Services and in the package insert forthe QuantiFERON Gold (In Tube) test must be followed toenable for proper stimulation of cells for the productionof interferon gamma. Chemiluminescence immunoassaymethodology Start: 01-12-20[address] W[address]ES S[address] antibody measurement Dr. Lan Simmons MD Work Phone: Start: 01-12-[address] Lan Simmons MD Work Phone: Start: 01-12-[address] Lan Simmons MD Work Phone: Start: 01-12-[address] Lan Simmons MD Work Phone: Start: 01-12-[address] Lan Simmons MD Work Phone: Start: 01-12-2025 Ova OR parasites identification Dr. Lan Simmons MD Work Phone: Start: 01-12-2025 Antibody screen Yoanna Tejeda Comment on above: Order Comment: CMV NEG? YNumber of units to transfuse: 1Is there a >20% drop in pt's BP? NIs the pt's CVP (central venous pressure) <3 cm/H2O? NIs the EBL >/= 1000ml in adults or >/= 12ml/kg in children?NIs there an orthostatic change in pt's BP(SBP drop>10mmHg)? YIs pt's HR > 100 bpm? YReason for Ordering Blood: AcuteAre the blood/blood products to be transfused? YIs the patient having/had surgery? NHas pt arrived? YWhen BrianaNY Result Comment: FOUN D TO BE NEGATIVE USING PREWARMED METHOD. Performed By: #### L 3100.3425, L3400.8000, L7000.0750, L3200.1100, L3200.0500, L5500.0550 #### [facility] [address] [place], [address] Start: 01-12-[address] Lan Simmons MD Work Phone: Start: 01-12-2025 Total iron binding capacity measurement Dr. Lan Simmons MD Work Phone: Start: 01-11-2025 Total iron binding capacity measurement Dr. Lan Simmons MD Work Phone: Start: 01-11-2025 Vitamin D, 25-hydroxy measurement Dr. Alesia Simmons MD Work Phone: Comment on above: Vitamin D StatusDeficiency: <20 ng/mL (5 0nmol/L)Insufficiency: 20-30 ng/mL (50-75 nmol/L)Sufficiency: 30-100 ng/mL (75-250 nmol/L)Toxicity: >100 ng/mL (>250 nmol/L) Start: 12-31-2024 End: 12-31-2024 Ob care antepartum vag dlvr & Tanya Colon CNM Work Phone: Start: 12-03-2024 End: 12-04-2024 Us preg uterus after 1st trimest 09/19 gestation Lan Simmons MD Work Phone: Start: 12-03-2024 End: 12-03-2024 Ob care antepartum vag dlvr & Lan Simmons MD Work Phone: Start: 11-12-2024 Us preg uterus w/detail frank 1st gestation Derrell Tristan MD Work Phone: Start: 11-05-2024 End: 11-05-2024 Ob care antepartum vag dlvr & Crystal Carolee Uptain CNM Work Phone: Start: 10-08-2024 End: 10-08-2024 Ob care antepartum vag dlvr & Crystal K Uptain CNM Work Phone: Start: 10-08-2024 End: 10-10-2024 Us preg uterus after 1st trimest 09/19 gestation Crystal K Uptain CNM Work Phone: Start: 10-02-2024 Basic metabolic panel calcium total Kim Montelongo MD Work Phone: Start: 10-02-2024 Blood typing serologic rh (d) Kim Montelongo MD Work Phone: Start: 10-01-2024 Basic metabolic panel calcium total Kim Montelongo MD Work Phone: Start: 09-30-2024 Basic metabolic panel calcium total Kim Montelongo MD Work Phone: Start: 09-30-2024 C-reactive protein Kim Montelongo MD Work Phone: Start: 09-29-2024 Basic metabolic panel calcium total Kim Montelongo MD Work Phone: Start: 09-28-2024 Basic metabolic panel calcium total Kim Montelongo MD Work Phone: Start: 09-28-2024 Us uterus limited 1/> fetuses Kim Montelongo MD Work Phone: Start: 09-27-2024 EXTRA URINE SPRINGER TUBE Margarito Berkowitz MD Work Phone: Start: 09-27-2024 Blood typing serologic rh (d) Kim Montelongo MD Work Phone: Start: 09-27-2024 Iadna-dna/rna gi pthgn multiplex probe tq 6-11 Ari Max MD Work Phone: Start: 09-27-2024 Inf agent det nucleic acid clostridium amp probe Ari Max MD Work Phone: Start: 09-27-2024 ADALIMUMAB AND ANTIBODY TO ADALIMUMAB QUANTITATION Ari Max MD Work Phone: Start: 09-27-2024 Cyanocobalamin vitamin b-12 Ari Max MD Work Phone: Start: 09-27-2024 Assay of calprotectin fecal Margarito Berkowitz MD Work Phone: Start: 09-27-2024 Urinalysis complete W Reflex Culture panel - Urine Margarito Berkowitz MD Work Phone: Start: 09-27-2024 Urnls dip stick/tablet reagent auto microscopy Margarito Berkowitz MD Work Phone: Start: 09-27-2024 End: 09-27-2024 C-reactive protein Jak Lange MD Work Phone: Start: 09-27-2024 Comprehensive metabolic panel Jak khan MD Work Phone: Start: 06-13-2024 Ct abdomen & pelvis w/contrast material Georges Marin MD MPH Work Phone: Start: 04-26-2024 Colonoscopy Georges Marin MD MPH Work Phone: Start: 02-24-2024 Renal function panel Mago Bahena MD Work Phone: Start: 02-23-2024 Renal function panel Mago Bahena MD Work Phone: Start: 02-23-2024 Inf agent det nucleic acid clostridium amp probe Mago Bahena MD Work Phone: Start: 02-22-2024 End: 02-22-2024 Comprehensive metabolic panel Piper Mcintyre MD Work Phone: Start: 02-22-2024 Drug screen quantitative vancomycin Piper Mcintyre MD Work Phone: Start: 02-21-2024 Albumin serum plasma/whole blood Gary Morin MD Work Phone: Start: 02-21-2024 PULSE OXIMETRY, CONTINUOUS Elvia thompsonriccardo DO Work Phone: Start: 02-21-2024 Culture fngi mold/yeast prsmptv oth xcpt blood Mel Gu Donatelli-Seyler DO Work Phone: Start: 02-21-2024 End: 02-21-2024 Debridement subcutaneous tissue 20 sq cm/< Mel Riccardo Donatelli-Seyler DO Work Phone: Start: 02-21-2024 VERAB/VERIFY ABORH Lory Martinez DO Work Phone: Start: 02-21-2024 End: 02-21-2024 PREPARE RBC Lory Martinez DO Work Phone: Start: 02-21-2024 Blood typing serologic rh (d) Lory Segura guerita DO Work Phone: Start: 02-21-2024 Comprehensive metabolic panel Lory Segura guerita DO Work Phone: Start: 02-21-2024 Radiologic exam chest single view Glory Damon MD Work Phone: Start: 08-26-2021 End: 10-26-2021 Screening for depression performed Lan Simmons MD Work Phone: Start: 06-10-2021 End: 06-10-2021 Ob care antepartum vag dlvr & Crystal K Uptain CNM Work Phone: Start: 06-03-2021 End: 06-03-2021 Ob care antepartum vag dlvr & Crystal K Uptain CNM Work Phone: Start: 05-20-2021 End: 05-20-2021 Ob care antepartum vag dlvr & Crystal K Uptain CNM Work Phone: Start: 04-22-2021 End: 04-22-2021 Ob care antepartum vag dlvr & Crystal K Uptain CNM Work Phone: Start: 03-25-2021 End: 03-25-2021 Ob care antepartum vag dlvr & Crystal K Uptain CNM Work Phone: Start: 02-12-2021 End: 02-12-2021 Ob care antepartum vag dlvr & Lan Simmons MD Work Phone: Start: 02-12-2021 End: 10-26-2021 Us preg uterus after 1st trimest 09/19 gestation Lan Simmons MD Work Phone: Start: 01-01-2021 End: 01-02-2021 Us preg uterus after 1st trimest 09/19 gestation Crystal K Uptain CNM Work Phone: Start: 01-01-2021 End: 01-01-2021 Ob care antepartum vag dlvr & Crystal K Uptain CNM Work Phone: Start: 11-08-2018 End: 11-08-2018 Microscopic examination of cervical Papanicolaou smear Valerie Galarza MA Comment on above: Normal. section Valerie roa MA Comment on above: x2 section Valerie roa MA Comment on above: x2 section Valerie roa MA Comment on above: x2 section Valerie roa MA Comment on above: x2 section Nisha quintero LPN Comment on above: x2 section Valerie roa MA Comment on above: x2 section Edy Diane and RN Comment on above: x2 H/O: section H/O: Lupe Galarza MA H/O: section H/O: Rossy Tesfaye PA-C Work Phone: H/O: section H/O: Lupe Galarza MA H/O: section H/O: Lupe Galarza MA H/O: section H/O: Lupe Galarza MA H/O: section H/O: Chuck Watlon LPN H/O: section H/O: Lupe Galarza MA H/O: section H/O: Maile Kingsley RN H/O: section H/O: Anddavid Kingsley RN Plan of Treatment Date Care Activity Detail Author Start: 2066 RSV High Risk: (Elde rly (60+) or Population) (1 - 1-dose 75+ series) RSV High Risk: (Elderly (60+) or Population) (1 - 1-dose 75+ series) [facility] Start: 2041 Zoster Vaccines (1 of 2) Zoste r Vaccines (1 of 2) [facility] Start: 09-27-2025 Cyanocobalamin vitam in b-12 Vitamin B-12 [facility] Start: 04-26-2025 Screening for malign ant neoplasm of colon [facility] Start: 03-21-2025 End: 03-21-2025 Patient encounter procedure 03/21/2025 2:00 PM EDT Office Visit [facility] [address] [facility] [address] [place] [id number] Georges Marin MD [facility] [address] [place] [address] [facility] Start: 03-14-2025 Patient encounter procedure Medical; OB - NST ONLY [facility] Start: 14-Mar-2025 10:30-04:00 SUDEEP Colon Appointment Request [facility] Start: 03-07-2025 Patient encounter procedure Medical; OB - OB/NST (EARLY FOR NST) [facility] Start: 07-Mar-2025 11:20-04:00 SUDEEP Colon Appointment Request [facility] Start: 03-04-2025 Basic metabolic 2008 panel with ionized calcium - Serum or Plasma [facility] Start: 03-04-2025 C reactive protein [Mass/volume] in Serum or Plasma [facility] Start: 03-04-2025 Cobalamin (Vitamin B 12) [Mass/volume] in Serum or Plasma [facility] Start: 03-04-2025 Hepatic function panel [facility] Start: 03-04-2025 Iron and Iron bindin g capacity panel - Serum or Plasma [facility] Start: 03-04-2025 Zinc [Mass/volume] i n Serum or Plasma [facility] Start: 03-01-2025 End: 03-01-2025 Patient encounter procedure 03/01/2025 1:30 PM EDT Appointment [facility] [address] [place] [address] [facility] Start: 02-27-2025 Patient encounter procedure Medical; US OB ULTRASOUND - 4wk u/s re ck growth [facility]. Start: 27-Feb-2025 13:40-04:00 MD Lan Simmons Appointment Request [facility]. Start: 02-22-2025 Cyanocobalamin vitam in b-12 Vitamin B-12 [facility] Start: 02-21-2025 Patient encounter procedure Medical; OB - NST ONLY [facility]. Start: 21-Feb-2025 10:30-04:00 SUDEEP Colon Appointment Request [facility]. Start: 02-18-2025 Procedure [facility] Start: 02-13-2025 nonstress test NST (NON- STRESS TEST) (08397) Start: 13-Feb-2025 Intent [facility] Start: 02-13-2025 Ob care antepartum v ag dlvr & OBSTETRICAL CARE ([id number]) Start: 13-Feb-2025 Intent [facility] Start: 02-13-2025 Patient encounter procedure Medical; OB - 1wk OB/NST [facility]. Start: 13-Feb-2025 07:40-04:00 SUDEEP Colon Appointment Request [facility] Start: 02-13-2025 Urnls dip stick/tabl et rgnt auto w/o microscopy Urinalysis-OB (in house*) ([id number]) Start: 13-Feb-2025 06:52-04:00 Request [facility]; [facility] Start: 02-07-2025 Patient encounter procedure Medical; [facility] Start: 07-Feb-2025 10:00-04:00 SUDEEP Colon [facility] Start: 01-31-2025 End: 01-31-2025 Patient encounter procedure 01/31/2025 1:15 PM EDT Appointment [facility] [address] [facility] [[email or web address] [address] [place] [address] [facility] Start: 01-28-2025 Patient encounter procedure Medical; OB - 4 week ob re ck growth [facility] Start: 28-Jan-2025 11:20-04:00 SUDEEP Colon [facility] Start: 01-14-2025 Patient discharge [facility] Start: 01-14-2025 Admission procedure [facility] Start: 01-13-2025 End: 01-13-2025 [facility] Start: 01-12-2025 Administration of bl ood product [facility] Start: 01-12-2025 Immunoglobulin measurement [facility] Start: 01-12-2025 In-vitro immunologic test [facility] Start: 01-12-2025 Serum immunofixation [facility] Start: 01-12-2025 End: 01-13-2025 [facility] Start: 01-12-2025 Nonstress test [facility] Start: 01-12-2025 Referral to gastroenterology service [facility] Start: 01-12-2025 Ova and Parasites Ova and Parasites [facility] Start: 01-12-2025 Providing care accor ding to standard [facility] Start: 01-12-2025 Administration of bl ood product [facility] Start: 01-12-2025 Administration of bl ood product [facility] Start: 01-11-2025 Vital signs measurements [facility] Start: 01-11-2025 Hospital admission, emergency, from emergency room, medical nature [facility] Start: 01-04-2025 End: 01-04-2025 Patient encounter procedure 01/04/2025 1:30 PM EDT Appointment [facility] [address] [place] [address] [facility] Start: 12-31-2024 Assay of thyroid stimulating hormone tsh TSH (THYROID STIMULATING HORMONE) ([id number]) Start: 31-Dec-2024 15:49-04:00 Request [facility]; [facility] Start: 12-31-2024 Patient encounter procedure Medical; OB - 4 week ob- GTT [facility] Start: 31-Dec-2024 15:00-04:00 SUDEEP Colon Appointment Request [facility] Start: 12-31-2024 Ob care antepartum v ag dlvr & OBSTETRICAL CARE ([id number]) Start: 31-Dec-2024 Intent [facility]; [facility] Start: 12-31-2024 Blood count hemoglobin [facility] ([id number]) Start: 31-Dec-2024 09:29-04:00 Request [facility]; [facility] Start: 12-31-2024 Glucose post glucose dose OB 1 Hr Glucose Tolerance Test, 50g load ([id number]) Start: 31-Dec-2024 09:29-04:00 Request [facility]; [facility] Start: 12-31-2024 Urnls dip stick/tabl et rgnt auto w/o microscopy Urinalysis-OB (in house*) ([id number]) Start: 31-Dec-2024 09:29-04:00 Request [facility]; [facility] Start: 12-27-2024 End: 12-27-2024 Patient encounter procedure [facility] Start: 12-03-2024 Us preg uterus after 1st trimest 1 gestation OB US AFTER 14 WKS, Single Fetus ([id number]) Start: 03-Dec-2024 Intent [facility]; [facility] Start: 12-03-2024 Patient encounter procedure Medical; US OB ULTRASOUND - 4 week ob- anatomy scan [facility] Start: 03-Dec-2024 13:40-04:00 MD Lan Simmons Appointment Request [facility] Start: 11-29-2024 End: 11-29-2024 Patient encounter procedure 11/29/2024 1:00 PM EDT Office Visit [facility] [address] [facility] [address] [place] [id number] Georges Marin MD [facility] [address] [place] [address] [facility] Start: 11-05-2024 Patient encounter procedure Medical; OB - 4 week ob [facility] Start: 05-Nov-2024 10:30-05:00 SUDEEP Colon Appointment Request [facility] Start: 10-08-2024 Ob care antepartum v ag dlvr & OBSTETRICAL CARE ([id number]) Start: 08-Oct-2024 Intent [facility]; [facility] Start: 10-08-2024 Us preg uterus after 1st trimest 09/19 gestation OB US AFTER 14 WKS, Single Fetus ([id number]) Start: 08-Oct-2024 Intent [facility]; [facility] Start: 10-08-2024 Assay of thyroid stimulating hormone tsh TSH W/ REFL FREE T4 ([id number]) Start: 08-Oct-2024 08:46-05:00 Request [facility]; [facility] Start: 10-08-2024 Obstetric panel OBSTETRIC PANE L ([id number]) Start: 08-Oct-2024 08:46-05:00 Request [facility]; [facility] Start: 09-26-2024 End: 08-30-2025 ADALIMUMAB AND ANTIBODY TO ADALIMUMAB QUANTITATION Adalimumab and Antibody to Adalimumab Quantitation Lab Routine Crohn's disease of both small and large intestine with fistula (Multi) Expected: 09/26/2024 (Approximate), Expires: 08/30/2025 [facility] Service Area Work Phone: Comment on above: Expected: 09/26/2024 (Approximate), Expires: 08/30/2025 Start: 08-30-2024 End: 08-30-2024 Patient encounter procedure 08/30/2024 2:30 PM EST Office Visit [facility] [address] [facility] [address] [place] [address] Georges Marin MD [facility] [address] Department of Medicine-General Internal [place] [id number] [facility] Start: 06-13-2024 End: 06-13-2024 Patient encounter procedure 06/13/2024 2:00 PM EDT Appointment [facility] [address] [place] [address] [facility] Start: 05-24-2024 End: 05-24-2025 CT Small bowel W contrast PO and W contrast IV CT enterography w contrast Imaging Routine Inflammatory bowel disease Expected: 05/24/2024, Expires: 05/24/2025 [facility] Service Area Work Phone: Comment on above: Expected: 05/24/2024 , Expires: 05/24/2025 Start: 05-20-2024 COVID-19 Vaccine ( season) COVID-19 Vaccine ( season) [facility] Start: 05-20-2024 Influenza vaccination [facility] Start: 11-11-2023 Potassium serum plasma/whole blood POTASSIUM SERUM ([id number]) Start: 11-Nov-2023 Request [facility] Start: 05-20-2023 COVID-19 Vaccine ( season) COVID-19 Vaccine ( season) [facility] Start: 2013 DTaP/Tdap/Td Vaccine s (1 - Tdap) DTaP/Tdap/Td Vaccines (1 - Tdap) [facility] Start: 2012 Screening for malign ant neoplasm of cervix [facility] Start: 2010 Hepatitis B Vaccines (1 of 3 - 19+ 3-dose series) Hepatitis B Vaccines (1 of 3 - 19+ 3-dose series) [facility] Start: 2009 Hepatitis C screening Hepatitis C Sc reening [facility] Start: 2004 Varicella vaccination Varicell a Vaccines (1 of 2 - 13+ 2-dose series) [facility] Start: 1996 COVID-19 Vaccine (#1) COVID-19 Vacci ne (#1) [facility] Start: 1992 Hepatitis B Surface Antibody Hepatitis B Surface Antibody [facility] Start: 1992 MMR Vaccines (1 of 1 - Standard series) MMR Vaccines (1 of 1 - Standard series) [facility] Start: 1991 HIV screening HIV Screening [facility] Start: 1991 Lipid panel Lipid Panel [facility] Start: 1991 Screening for malign ant neoplasm of colon [facility] Start: 1991 Screening for osteoporosis Bone Dens ity Scan [facility] Start: 1991 TB Test TB Test [facility] Start: 1991 Vitamin D25-[place] Vitamin D25-OH [facility] Start: 1991 Yearly Adult Physical Yearly Adult P hysical [facility] Alanine aminotransfe rase [Enzymatic activity/volume] in Serum or Plasma [facility] Albumin [Mass/volume ] in Serum or Plasma [facility] Albumin [Moles/volum e] in Serum or Plasma [facility] Alkaline phosphatase [Enzymatic activity/volume] in Serum or Plasma [facility] Anion gap in Serum o r Plasma [facility] Antibody to SS-A measurement [facility] Bacteria identified in Unspecified specimen by Culture Tissue/Wound Culture/Smear Microbiology Routine Necrotizing fasciitis (Multi) 02/21/2024 10:16 PM EDT [facility] Work Phone: Basic metabolic 2008 panel with ionized calcium - Serum or Plasma [facility] Beef IgE Ab [Units/v olume] in Serum [facility] Bilirubin, total measurement [facility] Bilirubin.direct [Mass/volume] in Serum or Plasma [facility] BUN/Creatinine ratio [facility] C reactive protein [Mass/volume] in Serum or Plasma [facility] Calcium [Mass/volume ] in Serum or Plasma [facility] Carbon dioxide, tota l [Moles/volume] in Central venous blood [facility] CBC panel - Blood by Automated count CBC Lab Routine Morning draw (Lab) until discontinued starting 02/24/2024, 1 completed [facility] Work Phone: Comment on above: Morning draw (Lab) u ntil discontinued starting 02/24/2024, 1 completed CBC W Auto Different ial panel - Blood [facility] CBC W Auto Different ial panel - Blood [facility] Chocolate IgE Ab [Units/volume] in Serum [facility] Cobalamin (Vitamin B 12) [Mass/volume] in Serum or Plasma [facility] Codfish IgE Ab [Units/volume] in Serum [facility] [place] IgE Ab [Units/v olume] in Serum [facility] Cow milk IgE Ab [Units/volume] in Serum [facility] Creatinine [Mass/vol ume] in Serum or Plasma [facility] DNA double strand Ab [Units/volume] in Serum [facility] [facility] End: 02-21-2024 ECG 12 lead [facility] Service Area Work Phone: Comment on above: Once for 1 Occurrenc es starting 02/21/2024 until 02/21/2024 As needed until disc ontinued starting 02/21/2024 Elastase.pancreatic [Presence] in Stool [facility] End: 09-27-2024 Electrocardiogram, 12-lead PRN ACS symptoms [facility] Work Phone: Comment on above: As needed until disc ontinued starting 09/27/2024 Once for 1 Occurrenc es starting 09/27/2024 until 09/27/2024 Electrocardiogram, 1 2-lead PRN ACS symptoms Electrocardiogram, 12-lead PRN ACS symptoms ECG Routine As needed until discontinued starting 09/27/2024 [facility] Work Phone: Comment on above: As needed until disc ontinued starting 09/27/2024 Electrophoresis: [id number] [facility] Electrophoresis: pal ma globulin [facility] Food [facility] Gas panel - Arterial cord blood Blood Gas Cord Arterial Lab Timed As needed (Lab) until discontinued starting 09/27/2024 [facility] Service Area Work Phone: Comment on above: As needed (Lab) unti l discontinued starting 09/27/2024 Gas panel - Venous c ord blood Blood Gas Cord Venous Lab Timed As needed (Lab) until discontinued starting 09/27/2024 [facility] Work Phone: Comment on above: As needed (Lab) unti l discontinued starting 09/27/2024 Globulin measurement [facility] Glucose [Mass/volume ] in Serum or Plasma [facility] Hepatic function panel [facility] Hepatitis A virus Ig M Ab [Presence] in Serum [facility] Hepatitis B core ant ibody measurement, IgM type [facility] Hepatitis B surface antigen measurement [facility] Hepatitis B virus bazzi rface Ab [Presence] in Serum [facility] Hepatitis C antibody measurement [facility] IgA [Mass/volume] in Serum or Plasma [facility] IgE [Units/volume] i n Serum or Plasma [facility] IgG [Mass/volume] in Serum or Plasma [facility] IgG subclass 1 [Mass/volume] in Serum [facility] IgG subclass 2 [Mass/volume] in Serum [facility] IgG subclass 3 [Mass/volume] in Serum [facility] IgG subclass 4 [Mass/volume] in Serum [facility] IgM [Mass/volume] in Serum or Plasma [facility] End: 02-21-2024 Incentive spirometry Instruct Incentive spirometry Instruct Respiratory Care Routine Once for 1 Occurrences starting 02/21/2024 until 02/21/2024 [facility] Work Phone: Comment on above: Once for 1 Occurrenc es starting 02/21/2024 until 02/21/2024 Iron [Mass/mass] in Unspecified specimen [facility] Iron and Iron bindin g capacity panel - Serum or Plasma [facility] Aleisa-1 extractable nuc lear Ab [Units/volume] in Serum [facility] Laboratory data interpretation [facility] Magnesium [Mass/volu me] in Serum or Plasma Magnesium Lab Routine Morning draw (Lab) until discontinued starting 02/24/2024, 1 completed [facility] Work Phone: Comment on above: Morning draw (Lab) u ntil discontinued starting 02/24/2024, 1 completed Measurement of renal function [facility] Mycobacterium tuberc ulosis tuberculin stimulated gamma interferon [Presence] in Blood [facility] Neutrophil cytoplasm ic Ab.classic [Units/volume] in Serum [facility] Ova OR parasites identification [facility] P-ANCA measurement [facility] Patient referral [facility] Work Phone: Peanut IgE Ab [Units/volume] in Serum [facility] Pork IgE Ab [Units/v olume] in Serum [facility] Potassium measurement [facility] End: 02-22-2024 Prepare RBC: 1 Units Prepare RBC: 1 Units Blood Bank STAT Once for 1 Occurrences starting 02/22/2024 until 02/22/2024 [facility] Work Phone: Comment on above: Once for 1 Occurrenc es starting 02/22/2024 until 02/22/2024 Protein electrophore sis panel - Serum or Plasma [facility] Protein measurement [facility] Renal function 2000 panel - Serum or Plasma Renal Function Panel Lab Routine Morning draw (Lab) until discontinued starting 02/24/2024, 1 completed [facility] Work Phone: Comment on above: Morning draw (Lab) u ntil discontinued starting 02/24/2024, 1 completed [place] IgE Ab [Units/volume] in Serum [facility] Serum chloride measurement [facility] Shrimp IgE Ab [Units/volume] in Serum [facility] Sodium measurement [facility] Soybean IgE Ab [Units/volume] in Serum [facility] Total protein measurement [facility] Transferrin [Mass/vo lume] in Serum or Plasma [facility] Transfuse RBC :1 Hour Transfuse RBC :1 Hour Transfusion Administration STAT 02/21/2024 9:57 PM EDT [facility] Work Phone: Transfuse RBC: 1 Uni ts :1 Hour Transfuse RBC: 1 Units :1 Hour Transfusion Administration STAT 02/21/2024 9:57 PM EDT [facility] Service Area Work Phone: Transfuse RBC: 1 Uni ts :1 Hour [facility] Work Phone: Tuna IgE Ab [Units/v olume] in Serum [facility] Urea nitrogen [Mass/volume] in Serum or Plasma [facility] End: 09-27-2024 US Abdomen Point of Care Ultrasound Imaging STAT Once for 1 Occurrences starting 09/27/2024 until 09/27/2024 [facility] Service Area Work Phone: Comment on above: Once for 1 Occurrenc es starting 09/27/2024 until 09/27/2024 End: 02-29-2024 Vancomycin [Mass/volume] in Serum or Plasma Vancomycin Lab Routine Morning draw (Lab) for 1 Occurrences starting 02/29/2024 until 02/29/2024 [facility] Area Work Phone: Comment on above: Morning draw (Lab) f or 1 Occurrences starting 02/29/2024 until 02/29/2024 Wheat IgE Ab [Units/volume] in Serum [facility] Whole Egg IgE Ab [Units/volume] in Serum [facility] Zinc [Mass/volume] i n Serum or Plasma [facility] Payers Date Payer Category Payer Self-pay [id number] 2025 Unknown [id number] 2024 [employer] [id number] 2024 Unknown 2024 Unknown [id number] 1991 Unknown [id number] 2.16.84 0.1.918505.3.579.2.651 1991 Unknown [id number] 2.16.8 40.1.260492.3.579.2.1244 1991 Unknown [id number] 2.16. 840.1.413028.3.579.2.5 1991 Unknown [id number] 2.16. 840.1.003641.3.579.2.1244 1991 Unknown [id number] 2.16. 840.1.747318.3.579.2.1244 1991 Unknown [id number] 2.16. 840.1.114787.3.579.2.1244 1991 Unknown [id number] 2.16. 840.1.606593.3.579.2.1244 1991 Unknown [id number] 2.16.8 40.1.930556.3.579.2.1244 1991 Unknown [id number] 2.16.8 40.1.518693.3.579.2.1244 1991 Unknown [id number] 2.16.8 40.1.400859.3.579.2.1244 1991 Unknown [id number] 2.16.8 40.1.336252.3.579.2.1244 1991 Unknown [id number] 2.16.8 40.1.375496.3.579.2.1244 1991 Unknown [id number] 2.16.8 40.1.006830.3.579.2.1244 1991 Unknown [id number] 2.16.8 40.1.266044.3.579.2.1244 1991 Unknown [id number] 2.16.8 40.1.439930.3.579.2.1244 1991 Unknown [id number] 2.16.8 40.1.179399.3.579.2. 1991 Unknown [id number] 2.16.8 40.1.997576.3.579.2.651 1991 Unknown [id number] 2.16. 840.1.436353.3.579.2.627 Unknown [id number] 2.16.8 40.1.861065.3.579.2.462 Unknown [id number] 2.16.8 40.1.270447.3.579.2.462 Unknown [id number] 2.16.8 40.1.779336.3.579.2.462 Unknown [id number] 2.16.8 40.1.121438.3.579.2.462 Unknown [id number] 2.16.8 40.1.283249.3.579.2.462 Unknown [id number] 2.16.8 40.1.043371.3.579.2.462 Unknown [id number] 2.16.8 40.1.102381.3.579.2.462 Unknown [id number] 2.16.8 40.1.617448.3.579.2.462 Unknown [id number] 2.16.8 40.1.859629.3.579.2.462 Unknown [id number] 2.16.8 40.1.926733.3.579.2.462 Unknown [id number] 2.16.8 40.1.531622.3.579.2.462 Unknown [id number] 2.16.8 40.1.239348.3.579.2.462 Social History Date Type Detail Facility Start: 02-22-2024 End: 09-27-2024 Spouse Spouse [facility], [facility], [facility] Tobacco Use: Tobacco Use: ; N ever smoker. [facility], [facility].; [facility], [facility]. Start: 1990 Female [facility] Start: 02-21-2024 End: 02-18-2025 Never smoked tobacco [facility] Start: 02-21-2024 Tobacco use and exposure Smokeless tobacco non-user [facility] Work Phone: Start: 02-22-2024 End: 11-29-2024 Alcoholic beverage intake Lifetime non-drinker (finding) [facility] Work Phone: Start: 02-22-2024 End: 09-27-2024 Alcohol Use Disorder Identification Test - Consumption [AUDIT-C] [facility] How often to you hav e a drink containing alcohol? Never [facility] How many standard dr inks containing alcohol do you have on a typical day? Patient does not drink [facility] Work Phone: Do you feel stress - tense, restless, nervous, or anxious, or unable to sleep at night because your mind is troubled all the time - these days [OSQ] Only a little [facility] Work Phone: (I/We) worried whetaisha er (my/our) food would run out before (I/we) got money to buy more. Never true [facility] Work Phone: In the past 12 month s, was there a time when you were not able to pay the mortgage or rent on time? No [facility] Work Phone: Start: 1990 Sex assigned at Not on file [facility] Work Phone: Start: 02-11-2024 End: 11-29-2024 Exposure to SARS-CoV-2 (event) Not sure [facility] Work Phone: Start: 10-08-2024 End: 02-13-2025 [facility] Start: 11-13-2018 End: 01-11-2025 Sex Female (finding) [facility] Sexual Orientation [facility] Mental Status Date Assessment Result Facility 01-11-2025 Cognitive function Level Of Cons ciousness Awake;Alert;Appropriate;Follow s Commands [facility] Work Phone: Clinical Notes 02-21-2024 to 02-23-2025 Note Date & Type Note Facility 02-23-2025 Hospital Discharge instructions Patient Education 02/23/2025 19:23:07 doyle- Depression and Blues (06/2020) (CUSTOM) Tien Depression and Blues All mothers are at risk of developing depression or the blues. These mood changes can occur right after giving , or they may occur many months after giving . blues or depression can be mild or severe. Additionally, depression can go away rather quickly, or it can be a long-term condition. CAUSES Raised hormone levels and the rapid drop in those levels are thought to be a main cause of depression and blues. A number of hormones change during and after . Estrogen and progesterone usually decrease right after delivery. The levels of thyroid hormone and various cortisol steroids also rapidly drop. Other factors that play a role in these mood changes include major life events and genetics. RISK FACTORS If you have any of the following risks for blues or depression, know what symptoms to watch out for during the period. Risk factors that may increase the likelihood of getting blues or depression include: Having a personal or family history of depression. Having depression while being . Having premenstrual mood issues or mood issues related to oral contraceptives. Having a lot of life stress. Having marital conflict. Lacking a social support network. Having health problems, such as diabetes. SIGNS AND SYMPTOMS Symptoms of blues include: Brief changes in mood, such as going from extreme happiness to sadness. Decreased concentration. Difficulty sleeping. Crying spells, tearfulness. Irritability. Anxiety. Symptoms of depression typically begin within the first month after giving . These symptoms include: Difficulty sleeping or excessive sleepiness. Marked weight loss. Agitation. Feelings of worthlessness. Lack of interest in activity or food. psychosis is a very serious condition and can be dangerous. Fortunately, it is rare. Displaying any of the following symptoms is cause for immediate medical attention. Symptoms of psychosis include: Hallucinations and delusions. Bizarre or disorganized behavior. Confusion or disorientation. DIAGNOSIS A diagnosis is made by an evaluation of your symptoms. There are no medical or lab tests that lead to a diagnosis, but there are various questionnaires that a health care provider may use to identify those with blues, depression, or psychosis. Often, a screening tool called the [place] Depression Scale is used to diagnose depression in the period. TREATMENT blues usually goes away on its own in 1 2 weeks. Social support is often all that is needed. You will be encouraged to get adequate sleep and rest. Occasionally, you may be given medicines to help you sleep. depression requires treatment because it can last several months or longer if it is not treated. Treatment may include individual or group therapy, medicine, or both to address any social, physiological, and psychological factors that may play a role in the depression. Regular exercise, a healthy diet, rest, and social support may also be strongly recommended. psychosis is more serious and needs treatment right away. Hospitalization is often needed. HOME CARE INSTRUCTIONS Get as much rest as you can. Exercise regularly. Some women find yoga and walking to be beneficial. Eat a balanced and nourishing diet. Do little things that you enjoy. Have a cup of tea, take a bubble bath, read your favorite magazine, or listen to your favorite music. Avoid alcohol. Ask for help with gauge and weigh machine adjuster, cooking, grocery shopping, or running errands as needed. Do not try to do everything. Talk to people close to you about how you are feeling. Get support from your partner, family members, and friends. Try to stay positive in how you think. Think about the things you are grateful for. Do not spend a lot of time alone. Only take rlkk-jxo-mbzdxiv or prescription medicine as directed by your health care provider. Keep all your appointments. Let your health care provider know if you have any concerns. SEEK MEDICAL CARE IF: You are having a reaction to or problems with your medicine. SEEK IMMEDIATE MEDICAL CARE IF: You have suicidal feelings. You think you may harm yourself or someone else. MAKE SURE YOU: Understand these instructions. Will watch your condition. Will get help right away if you are not doing well or get worse. Resource: [facility] Patient Information 2015 [facility] Get [facility]ved For [facility]. This information is not intended to replace advice given to you by your health care provider. Make sure you discuss any questions you have with your health care provider. 02/23/2025 19:23:07 7- Section ( Care) (03/2017) (CUSTOM) Section ( Care) These discharge instructions provide you with general information on section (caesarean, cesarian, caesarian) and caring for yourself after you leave the hospital. Your caregiver may also give you specific instructions. Please read these instructions and refer to them in the next few weeks. If you have any problems after discharge, please call your doctor. If you are unable to reach your doctor, you should seek help at the nearest Emergency Department. ACTIVITY Rest as much as possible the first two weeks at home. When possible, have someone help you with your household activities for 2 to 3 weeks. Limit your housework and social activity. Increase your activity gradually as your strength returns. Do not climb stairs more than two or three times a day. Do not lift anything heavier than 10 pounds. Follow your doctor's instructions about driving a car. Limit wearing support panties or control-top hose, since relying on your own muscles helps strengthen them. Ask your doctor about exercises. NUTRITION You may return to your usual diet. Drink 6 to 8 glasses of fluid a day. Eat a well-balanced diet. Include portions of food from the meat/protein, milk, fruit, vegetable and bread groups. Keep taking your or multivitamins. ELIMINATION You should return to your usual bowel function. If constipation is a problem, you may take a mild laxative such as Milk of Magnesia with your caregiver s permission. Gradually add fruit, vegetables and bran to your diet. Make sure to increase your fluids. HYGIENE You may shower, wash your hair and take tub baths unless your doctor tells you otherwise. Continue johanna-care until your vaginal bleeding and discharge stops. Do not douche or use tampons until your caregiver says it is OK. FEVER If you feel feverish or have shaking chills, take your temperature. If your temperature is 101 F (38.3 C), or is 100.4 F (38 C) two times in a four hour period, call your doctor. The fever may indicate infection. If you call early, infection can be treated with medicines that kill germs (antibiotics). Hospitalization may be avoided. PAIN CONTROL You may still have mild discomfort. Only take ppty-ykv-kfgbxgl or prescription medicine as directed by your caregiver. Do not take aspirin unless instructed by your physician; it can cause bleeding. If the pain is not relieved by your medicine or becomes worse, call your caregiver. INCISION CARE Clean your cut (incision) gently with soap and water. If your caregiver says it is okay, leave the incision without a dressing unless it is draining or irritated. If you have small adhesive strips across the incision and they do not fall off within 7 days, carefully peel them off. Check the incision daily for increased redness, drainage, swelling or separation of skin. Call your caregiver if any of these happen. VAGINAL CARE You may have a vaginal discharge or bleeding for up to 6 weeks. If the vaginal discharge becomes bright red, bad smelling, heavy in amount, has blood clots or if you have burning or frequency when urinating, call your caregiver. SEXUAL INTERCOURSE No sexual intercourse until seen by your physician. You can become before you have a period. If you decide to have sexual intercourse, you should use control if you do not want to become right away. HEALTH PRACTICES It is still important to have a yearly pelvic exam. Continue monthly self-breast exams and yearly physical exams with a Pap test. BREAST CARE If you are not and your breasts become tender, hard or leak milk, you may wear a firm fitting bra and apply ice to the breasts. If you are , wear a good support bra. Call your caregiver if you have breast pain, flu-like symptoms, fever or hardness and reddening of your breasts. BLUES You may commonly have a period of low spirits or blues. Discuss your feelings with your partner, family and friends. This may be caused by the changing hormone levels in your body. You may want to contact your caregiver if this is worrisome. SEEK MEDICAL CARE IF: You develop a temperature greater than 100.4 degrees Fahrenheit. There is swelling, redness or increasing pain in the wound area. Pus is coming from the wound. You notice a bad smell from the wound or surgical dressing. You have pain, redness and swelling from the intravenous site. The wound is breaking open (the edges are not staying together). You feel dizzy or feel like fainting. You develop pain or bleeding when you urinate. You develop diarrhea. You develop nausea and vomiting. You develop abnormal vaginal discharge. You develop a rash. You have any type of abnormal reaction or develop an allergy to your medication. You need stronger pain medication for your pain. SEEK IMMEDIATE MEDICAL CARE: You develop abdominal pain. You develop chest pain. You develop shortness of breath. You pass out. You develop pain, swelling or redness of your leg. You develop heavy vaginal bleeding with or without blood clots. Document Released: 05/28/2003 Document Re-Released: 07/03/2010 [facility] Patient Information 2010 [employer]. Follow Up Care 02/21/2025 07:36:14 With:[facility] ADMINISTRATOR Address: [place] [address]- Business (1) When: Unknown Comments:Patient to schedule early follow up within 1-2 weeks [facility] 02-23-2025 Note Discharge Instructions Thank you for allowing [facility] to assist you with your healthcare needs. The following is important discharge information regarding your hospital visit. Your Diagnosis Post-op pain What to do next Follow Up Appointments Follow Up with [facility] [place] [address]- Business (1) Additional Information: Patient to schedule early follow up within 1-2 weeks The Following Activity and Diet Have Been Ordered for You Discharge Activity - Ordered -- May Shower, No sexual intercourse or anything inside of the vagina x 6 wks. No tub baths x 2 wks, No lifting >15lbs x 6 wks, Don't operate a vehicle for 2 wks and until pain free,, 02/23/25 13:03:00 EDT Discharge Diet - Ordered -- Type of Diet: Regular, No changes were made to your diet during your hospital stay. Please resume your pre hospitalization diet on discharge., 02/23/25 13:03:00 EDT The Following Equipment Has Been Ordered for You Discharge Home Equipment Discharge Wound Care - Ordered -- call the office if exp a temp >100.4, Increase in Bleeding, Increase in Pain, or Increase in foul odors, 02/23/25 13:03:00 EDT Allergies No Known Medication Allergies Medications Please ask your primary doctor or pharmacist before taking any other medication not listed, including over the counter drugs, herbal medications, vitamins and or supplements as they may interact with your home medications. What How Much When Why Instructions Last Dose New acetaminophen (Tylenol 325 mg oral capsule) 650 Milligram by mouth Every 6 hours as needed for as needed for pain Duration: 10 Days Pickup at [facility] New oxyCODONE (oxyCODONE 5 mg oral tablet ( IMMEDIATE release )) 1 tab(s) by mouth Every 6 hours as needed for for pain Post-op pain Duration: 3 Days Pickup at [facility] Changed predniSONE 50 Milligram by mouth Once a day Changed predniSONE (predniSONE 10 mg oral tablet) 4 tab(s) by mouth Once a day Duration: 7 Days Pickup at [facility] Unchanged adalimumab (Humira Pen 40 mg/ 0.4 mL subcutaneous kit) 40 Milligram Subcutaneous Every other week Unchanged multivitamin, ( Multivitamins) by mouth Once a day Unchanged pantoprazole (Protonix 40 mg oral enteric coated tablet) 1 tab(s) by mouth Once a day Pharmacy Information [facility]: [address] [place] [address] [phone] Please take this list to your next doctor s visit. Bring all medications you take, including over the counter medications, herbals and other supplements with you to your doctor s visit. Patients and families are reminded to discard old lists and to update any records with all medication providers or retail pharmacies. Education Materials [place] Depression and Blues All mothers are at risk of developing depression or the blues. These mood changes can occur right after giving , or they may occur many months after giving . blues or depression can be mild or severe. Additionally, depression can go away rather quickly, or it can be a long-term condition. CAUSES Raised hormone levels and the rapid drop in those levels are thought to be a main cause of depression and blues. A number of hormones change during and after . Estrogen and progesterone usually decrease right after delivery. The levels of thyroid hormone and various cortisol steroids also rapidly drop. Other factors that play a role in these mood changes include major life events and genetics. RISK FACTORS If you have any of the following risks for blues or depression, know what symptoms to watch out for during the period. Risk factors that may increase the likelihood of getting blues or depression include: Having a personal or family history of depression. Having depression while being . Having premenstrual mood issues or mood issues related to oral contraceptives. Having a lot of life stress. Having marital conflict. Lacking a social support network. Having health problems, such as diabetes. SIGNS AND SYMPTOMS Symptoms of blues include: Brief changes in mood, such as going from extreme happiness to sadness. Decreased concentration. Difficulty sleeping. Crying spells, tearfulness. Irritability. Anxiety. Symptoms of depression typically begin within the first month after giving . These symptoms include: Difficulty sleeping or excessive sleepiness. Marked weight loss. Agitation. Feelings of worthlessness. Lack of interest in activity or food. psychosis is a very serious condition and can be dangerous. Fortunately, it is rare. Displaying any of the following symptoms is cause for immediate medical attention. Symptoms of psychosis include: Hallucinations and delusions. Bizarre or disorganized behavior. Confusion or disorientation. DIAGNOSIS A diagnosis is made by an evaluation of your symptoms. There are no medical or lab tests that lead to a diagnosis, but there are various questionnaires that a health care provider may use to identify those with blues, depression, or psychosis. Often, a screening tool called the [place] Depression Scale is used to diagnose depression in the period. TREATMENT blues usually goes away on its own in 1 2 weeks. Social support is often all that is needed. You will be encouraged to get adequate sleep and rest. Occasionally, you may be given medicines to help you sleep. depression requires treatment because it can last several months or longer if it is not treated. Treatment may include individual or group therapy, medicine, or both to address any social, physiological, and psychological factors that may play a role in the depression. Regular exercise, a healthy diet, rest, and social support may also be strongly recommended. psychosis is more serious and needs treatment right away. Hospitalization is often needed. HOME CARE INSTRUCTIONS Get as much rest as you can. Exercise regularly. Some women find yoga and walking to be beneficial. Eat a balanced and nourishing diet. Do little things that you enjoy. Have a cup of tea, take a bubble bath, read your favorite magazine, or listen to your favorite music. Avoid alcohol. Ask for help with gauge and weigh machine adjuster, cooking, grocery shopping, or running errands as needed. Do not try to do everything. Talk to people close to you about how you are feeling. Get support from your partner, family members, and friends. Try to stay positive in how you think. Think about the things you are grateful for. Do not spend a lot of time alone. Only take qzcd-gzf-bqnrrhv or prescription medicine as directed by your health care provider. Keep all your appointments. Let your health care provider know if you have any concerns. SEEK MEDICAL CARE IF: You are having a reaction to or problems with your medicine. SEEK IMMEDIATE MEDICAL CARE IF: You have suicidal feelings. You think you may harm yourself or someone else. MAKE SURE YOU: Understand these instructions. Will watch your condition. Will get help right away if you are not doing well or get worse. Resource: [facility] Patient Information 2015 [facility]. This information is not intended to replace advice given to you by your health care provider. Make sure you discuss any questions you have with your health care provider. Section ( Care) These discharge instructions provide you with general information on section (caesarean, cesarian, caesarian) and caring for yourself after you leave the hospital. Your caregiver may also give you specific instructions. Please read these instructions and refer to them in the next few weeks. If you have any problems after discharge, please call your doctor. If you are unable to reach your doctor, you should seek help at the nearest Emergency Department. ACTIVITY Rest as much as possible the first two weeks at home. When possible, have someone help you with your household activities for 2 to 3 weeks. Limit your housework and social activity. Increase your activity gradually as your strength returns. Do not climb stairs more than two or three times a day. Do not lift anything heavier than 10 pounds. Follow your doctor's instructions about driving a car. Limit wearing support panties or control-top hose, since relying on your own muscles helps strengthen them. Ask your doctor about exercises. NUTRITION You may return to your usual diet. Drink 6 to 8 glasses of fluid a day. Eat a well-balanced diet. Include portions of food from the meat/protein, milk, fruit, vegetable and bread groups. Keep taking your or multivitamins. ELIMINATION You should return to your usual bowel function. If constipation is a problem, you may take a mild laxative such as Milk of Magnesia with your caregiver s permission. Gradually add fruit, vegetables and bran to your diet. Make sure to increase your fluids. HYGIENE You may shower, wash your hair and take tub baths unless your doctor tells you otherwise. Continue johanna-care until your vaginal bleeding and discharge stops. Do not douche or use tampons until your caregiver says it is OK. FEVER If you feel feverish or have shaking chills, take your temperature. If your temperature is 101 F (38.3 C), or is 100.4 F (38 C) two times in a four hour period, call your doctor. The fever may indicate infection. If you call early, infection can be treated with medicines that kill germs (antibiotics). Hospitalization may be avoided. PAIN CONTROL You may still have mild discomfort. Only take fldi-mzl-yrizllh or prescription medicine as directed by your caregiver. Do not take aspirin unless instructed by your physician; it can cause bleeding. If the pain is not relieved by your medicine or becomes worse, call your caregiver. INCISION CARE Clean your cut (incision) gently with soap and water. If your caregiver says it is okay, leave the incision without a dressing unless it is draining or irritated. If you have small adhesive strips across the incision and they do not fall off within 7 days, carefully peel them off. Check the incision daily for increased redness, drainage, swelling or separation of skin. Call your caregiver if any of these happen. VAGINAL CARE You may have a vaginal discharge or bleeding for up to 6 weeks. If the vaginal discharge becomes bright red, bad smelling, heavy in amount, has blood clots or if you have burning or frequency when urinating, call your caregiver. SEXUAL INTERCOURSE No sexual intercourse until seen by your physician. You can become before you have a period. If you decide to have sexual intercourse, you should use control if you do not want to become right away. HEALTH PRACTICES It is still important to have a yearly pelvic exam. Continue monthly self-breast exams and yearly physical exams with a Pap test. BREAST CARE If you are not and your breasts become tender, hard or leak milk, you may wear a firm fitting bra and apply ice to the breasts. If you are , wear a good support bra. Call your caregiver if you have breast pain, flu-like symptoms, fever or hardness and reddening of your breasts. BLUES You may commonly have a period of low spirits or blues. Discuss your feelings with your partner, family and friends. This may be caused by the changing hormone levels in your body. You may want to contact your caregiver if this is worrisome. SEEK MEDICAL CARE IF: You develop a temperature greater than 100.4 degrees Fahrenheit. There is swelling, redness or increasing pain in the wound area. Pus is coming from the wound. You notice a bad smell from the wound or surgical dressing. You have pain, redness and swelling from the intravenous site. The wound is breaking open (the edges are not staying together). You feel dizzy or feel like fainting. You develop pain or bleeding when you urinate. You develop diarrhea. You develop nausea and vomiting. You develop abnormal vaginal discharge. You develop a rash. You have any type of abnormal reaction or develop an allergy to your medication. You need stronger pain medication for your pain. SEEK IMMEDIATE MEDICAL CARE: You develop abdominal pain. You develop chest pain. You develop shortness of breath. You pass out. You develop pain, swelling or redness of your leg. You develop heavy vaginal bleeding with or without blood clots. Document Released: 05/28/2003 Document Re-Released: 07/03/2010 Exit[employer] Patient Information 2011 [employer]. Additional Information VACCINATE! IT SAVES LIVES! Members of the community who have not yet received the COVID-19 vaccine and would like to receive it can visit one of [facility] vaccine clinics. There are many vaccine clinic locations within the [facility]. For locations and available times, please visit www.gettheshot.coronavirus.[place].gov/ . It is important to note that some COVID mobile vaccine clinics are held outdoors and may be canceled in rainy or stormy conditions. To learn more about pediatric vaccinations (ages 5-11), we invite you to visit the [facility] webpage. [email or web address]/pages [email or web address] [email or web address] To learn more about the COVID-19 vaccine, we invite you to visit the CDC website for a list of frequently asked questions. https://www.cdc.gov/coronavirus/2019 -ncov/vaccines/faq.html [facility] Patient Portal Access Instructions: Stay connected with your healthcare team and access your personal medical information anytime with the [facility] Patient Portal.If you would like a full copy of your medical records, please contact the [facility] Medical Records Department, Tuesday through Tuesday between 8a.m. and 4:30p.m. Please follow the directions below to access the portal: 1.Access the email account you provided upon registration to the [facility].2.Look for an invitation email from [facility].3.Open the email and access the invitation link: Accept Invitation to [employer]4.Fill in the required arana to create your account. Sign into [email or web address] with your username and password that you created in the above steps to stay up to date. You can then view a summary of results, a summary of your visits, and the ability to download your summaries to your computer or send the information securely to a physician. Remember that your healthcare information is confidential, so carefully consider who you will allow to register on the [employer] Patient Portal for access to your information. You can also access the [facility] Patient Portal on the [employer]. Simply click on Health Records under [employer] and then click on the [employer] logo. HOW TO SAFELY DISPOSE OF PRESCRIPTION MEDICATIONS Please use one of the following methods to safely dispose of your unused medications. 1.Use a drug disposal kit: the drug disposal pouch allows you to safely discard your old and unused drugs. Ask your nurse to give you one when you are discharged.2.Visit a local take-back location: Many local pharmacies and police departments have programs that collect old and unwanted prescription drugs. Call your local pharmacy or go to http://[employer]/5V1Pb0s to find one close to you.3.Make use of household items: Use cat litter or old coffee grounds to dispose medications if other options are not available. Mix your drugs with these household products, seal them in an airtight container and throw it into the garbage. Call [facility]: [phone] to be sure your drugs can be disposed of in this way. Some medicines may require a different approach.4.Never flush your medications down the toilet. IF YOU HAVE BEEN PRESCRIBED AN OPIOID FOR PAIN If you have been prescribed an opioid (such as hydrocodone, oxycodone or morphine), it is critical to understand the possible side effects and risks of opioid pain medications. Even when taken as directed, opioids can have several side effects including: Tolerance, meaning you might need to take more of a medication for the same pain relief. Nausea, vomiting and/or constipation. Sleepiness, dizziness, dry mouth, confusion, depression or itching. Physical dependence, meaning you have withdrawal symptoms when a medication is stopped, can develop within a few days. KNOW YOUR RESPONSIBILITIES It is important to know exactly how much and how often to take the opioid pain medications you are prescribed. Never take opioids in higher amounts or more often than prescribed. Do not combine opioids with alcohol or other drugs that cause drowsiness, such as benzodiazepines, also known as benzos, including diazepam and alprazolam, muscle relaxants or sleep aids. Never sell or share prescription opioids. This is illegal. Store opioids in a secure place and out of reach of others (including children, family, friends and visitors). The last page of this document has been signed and retained as a CHART COPY Signatures Patient Education Materials 7b- Depression and Blues (06/2020) (CUSTOM) 7- Section ( Care) (03/2017) (CUSTOM) Medication Leaflets My discharge plan and instructions have been reviewed and explained to me and I,SHERI SOUTH understand my current condition and have read and understand these discharge instructions. I have received a written copy of the plan/instructions. If I have questions, I am aware that I should contact my doctor. Patient/Environmental Services Director Signature: ___ Date/Time: Relationship to Patient: _ Witness Name/Signature: Date/Time: [facility] 02-23-2025 Maternal and medicine Progress note Patient seen and discussed with OB resident. OB resident exam reviewed and confirmed. The patient has no complaints and is requesting discharge today. She denies lightheadedness or difficulty ambulating. She is passing gas and denies abdominal pain or diarrhea or rectal bleeding. She feels well. Vital signs are stable as noted in [employer]. She is afebrile and normotensive. CBC today showed hemoglobin of 7.7. Compared to 8.8 at admission. WBC was 8.7. Agree with current resident assessment and plan. The patient is stable for discharge. She is tolerating her blood loss anemia well. The blood loss was a combination of the GI bleed she had in December due to Crohn's disease and recent delivery. She has received 2 doses of Venofer for total of 600 mg. She has vitamins at home and was encouraged to continue those. She should also take 1 lghl-zch-mwtrwkz iron pill every other day. Post precautions reviewed. The patient is also currently on 40 mg of prednisone daily and has a steroid taper prescribed by her GI doctor. She already has a appointment with her GI doctor on 03/04/2025. She plans to stay in the NICU is much as possible with her baby until baby is discharged which will likely be soon. I recommend she follow-up with her OB provider-Dr. Brock in 1 to 2 weeks. Patient's status and care plan discussed with OB care team including the in-house attending, Dr. Boswell Digitally Signed by NENA JONES MD on 02/23/2025 01:29 PM [facility] 02-23-2025 Maternal and medicine Progress note Patient seen and discussed with OB resident. OB resident exam reviewed and confirmed. The patient has no complaints and is requesting discharge today. She denies lightheadedness or difficulty ambulating. She is passing gas and denies abdominal pain or diarrhea or rectal bleeding. She feels well. Vital signs are stable as noted in [employer]ner. She is afebrile and normotensive. CBC today showed hemoglobin of 7.7. Compared to 8.8 at admission. WBC was 8.7. Agree with current resident assessment and plan. The patient is stable for discharge. She is tolerating her blood loss anemia well. The blood loss was a combination of the GI bleed she had in December due to Crohn's disease and recent delivery. She has received 2 doses of Venofer for total of 600 mg. She has vitamins at home and was encouraged to continue those. She should also take 1 nggl-lvs-oodfiqq iron pill every other day. Post precautions reviewed. The patient is also currently on 40 mg of prednisone daily and has a steroid taper prescribed by her GI doctor. She already has a appointment with her GI doctor on 03/04/2025. She plans to stay in the NICU is much as possible with her baby until baby is discharged which will likely be soon. I recommend she follow-up with her OB provider-Dr. Brock in 1 to 2 weeks. Patient's status and care plan discussed with OB care team including the in-house attending, Dr. Boswell Digitally Signed by NENA JONES MD on 02/23/2025 01:29 PM [facility] 02-23-2025 Note OB Discharge Summary Discharge Diagnosis: ( X ) IUP( ) Preeclampsia( ) Eclampsia ( ) HELLP syndrome( ) Gestational diabetes( ) Chronic HTM ( X ) Other - SROM in setting of Hx of C/S Procedures: ( ) Spontaneous vaginal delivery( ) Vacuum assisted vaginal delivery ( ) Forceps assisted vaginal delivery( ) Vaginal delivery w/tubal ligation ( ) Episiotomy( ) Primary Section ( X ) Repeat Section( ) Section w/tubal ligation ( ) D & C( ) Blood patch ( ) Epidural Anesthesia( X ) Spinal Anesthesia ( ) Section w/hysterectomy Hospital Course: ( ) Uncomplicated ( X ) See progress notes Abnormal Lab/Test Value: ( ) None( X ) See progress notes RH: ( ) N/A ( X) Rh positive ( ) Rh neg ( ) Rhogam given Rubella: ( ) Rubella immune( X ) Rubella cgp-fndyyf-Fqnwiwh given ( ) Rubella vgb-muxxbi-Qpoqafj declined Feeding Shen: ( X) Breast feeding(X ) Bottle feeding Consultations/referrals: ( ) None( ) Social Service( ) Home Health ( ) Genetics( ) Perinatology( ) Surgery ( ) Infectious Disease( ) Nutrition( ) Psychiatry ( X ) Anesthesiology( ) Neurology( ) Cardiology ( ) Endocrinology( ) Pulmonology( ) Other Disposition: Home Condition on Discharge: Stable Follow-up Care: See discharge instructions Other/Comments: Pt sent on 40 mg Prednisone qDay for 7 days then will follow up with GI for 10-14 day taper Digitally Signed by NENA QUIROZ MD on 02/23/2025 05:41 AM [facility] 02-23-2025 Note OB Discharge Summary Discharge Diagnosis: ( X ) IUP( ) Preeclampsia( ) Eclampsia ( ) HELLP syndrome( ) Gestational diabetes( ) Chronic HTM ( X ) Other - SROM in setting of Hx of C/S Procedures: ( ) Spontaneous vaginal delivery( ) Vacuum assisted vaginal delivery ( ) Forceps assisted vaginal delivery( ) Vaginal delivery w/tubal ligation ( ) Episiotomy( ) Primary Section ( X ) Repeat Section( ) Section w/tubal ligation ( ) D & C( ) Blood patch ( ) Epidural Anesthesia( X ) Spinal Anesthesia ( ) Section w/hysterectomy Hospital Course: ( ) Uncomplicated ( X ) See progress notes Abnormal Lab/Test Value: ( ) None( X ) See progress notes RH: ( ) N/A ( X) Rh positive ( ) Rh neg ( ) Rhogam given Rubella: ( ) Rubella immune( X ) Rubella icx-wulfsh-Kptiesu given ( ) Rubella jct-zoexlb-Dmaawwb declined Feeding Shen: ( X) Breast feeding(X ) Bottle feeding Consultations/referrals: ( ) None( ) Social Service( ) Home Health ( ) Genetics( ) Perinatology( ) Surgery ( ) Infectious Disease( ) Nutrition( ) Psychiatry ( X ) Anesthesiology( ) Neurology( ) Cardiology ( ) Endocrinology( ) Pulmonology( ) Other Disposition: Home Condition on Discharge: Stable Follow-up Care: See discharge instructions Other/Comments: Pt sent on 40 mg Prednisone qDay for 7 days then will follow up with GI for 10-14 day taper Digitally Signed by NENA QUIROZ MD on 02/23/2025 05:41 AM [facility] 02-22-2025 Maternal and medicine Progress note Patient seen and discussed with OB resident this morning. OB resident exam reviewed and confirmed. The patient is comfortable. She denies weakness or lightheadedness. Vital signs are stable as noted in [employer]ner. She has had good urine output. The patient's preoperative hemoglobin was 8.8. Postop it was 9.3 and this morning 8.1. Platelets 322,000. Agree with the resident assessment and plan. Recommend that CBC be repeated in the a.m. The patient had a significant GI bleed in December and now has undergone surgery and is significantly anemic. The patient states she has not received IV iron. I recommend that she receive a course of Venofer while in hospital. Patient to continue prednisone 40 mg daily and she will follow-up with her electrical and instrumentation mechanic once discharged. Patient's status and care plan discussed with OB care team. Digitally Signed by NENA JONES MD on 02/22/2025 11:02 AM [facility] 02-22-2025 Nurse Progress note spoke with mother and has decided to bottlefeed at this time. knows to let us know if she changes her mind and wants to pump. support given. call prn. Digitally Signed by LUIS FERNANDO Abrams on 02/22/2025 09:00 AM [facility] 02-22-2025 Anesthesiology Consult note Patient: SHERI SOUTH Age: 34 years Sex: Female : 1990 Associated Diagnoses: None Author: NIKHIL YATES DO Postoperative Information Post Operative Info: Post op day: Post Anesthesia Care Unit. Patient location: PACU. Assessment Postanesthesia assessment Vitals. Mental status: at preoperative baseline. Respiratory function: respirations are non-labored, Stable. Respiratory support: none. CV function: Stable. Cardiovascular support: none. Pain: Satisfactory. Nausea status: Satisfactory. Postoperative hydration status: within normal limits. Notes: Patient is sufficiently recovered from anesthesia to participate in the evaluation. No follow-up care needed. No complications post-anesthesia.. Continue to monitor resolution of neuraxial anesthetic Digitally Signed by NIKHIL YATES DO on 02/22/2025 05:55 AM [facility] 02-21-2025 Maternal and medicine Progress note Asked to see patient on behalf of the ODS service. Patient seen with OB resident. An OB resident exam reviewed and confirmed. The patient was a 34-year-old 4 now para 3 who was a maternal transport via private vehicle from Dr. Lan Brock at [facility]. At the time of transport she was 34 weeks 6 days with a AKIRA of 03/29/2025 with good dating criteria. On arrival the patient was not xander and heart rate tracing was reassuring. The patient had been complicated by Crohn's disease. The patient was diagnosed approximately 2 years ago. She has not required surgery other than the colonoscopy and has a history of a rectal abscess. She was hospitalized in December for recurrence with GI bleeding as the presenting symptom.. She has been treated with Humira but required a steroid pulse and was initially placed on 60 mg of prednisone daily which was recently tapered to 50 mg. The patient states that her symptoms have been minimal for the past week and a half. Her Crohn's disease is cared for by Yoanna Tejeda CNP and Dr. Galdamez's office-the electrical and instrumentation mechanic in [place]. The patient has also had 2 previous sections the first in 2019 for failed forceps delivery at 40 weeks. The second was a repeat at 39 weeks. Both of these cesareans were prior to her diagnosis of Crohn's syndrome. Her very first was a early miscarriage. The patient received a dose of Celestone prior to transport. She also received penicillin for GBS prophylaxis. records sent with the patient as well as records retrieved through the [facility] [employer] database were reviewed. Labs on admission showed hemoglobin of 8.8 and hematocrit of 26.2. Indices were normal. labs were otherwise unremarkable. As recommended the patient was taken for repeat delivery. Blood was on hold. The patient's GI doctor was contacted. He recommended that the dose of prednisone be reduced to 40 mg daily. The patient is a candidate for stress steroids at 100 mg of Solu-Cortef every 8 hours for 3 doses. However, her current prednisone dose will be sufficient for maintenance. Recommend extended dose antibiotic prophylaxis due to the patient's steroid use. Blood count should be assessed 4 to 6 hours post procedure and vital signs monitored carefully. If the patient tolerates her postoperative anemia, then Venofer should be considered. Patient's status and care plan discussed with the in-house attending, Dr. Paz as well as the NICU [employer] and the remainder of the OB care team. Digitally Signed by NENA JONES MD on 02/21/2025 02:19 PM [facility] 02-21-2025 Anesthesiology Consult note Patient: SHERI SOUTH Age: 34 years Sex: Female : 1990 Associated Diagnoses: None Author: BERTA GELLER APRN-CHIEF ARCHITECT Preoperative Information Time of last food or liquid consumption: 02/20/2025 21:00:00 Anesthesia history Patient's history: negative. Family's history: negative. Review of Systems Ear/Nose/Mouth/Throat: glasses. Respiratory: Negative except as documented in history of present illness. Cardiovascular: Negative except as documented in history of present illness. Gastrointestinal: Crohns on prednisone daily. Genitourinary: Negative except as documented in history of present illness. Endocrine: Negative except as documented in history of present illness. Musculoskeletal: Negative except as documented in history of present illness. Integumentary: Negative except as documented in history of present illness. Neurologic: Negative except as documented in history of present illness. Reproductive: Para Scoring , Week's Gestation 34.6, EDC 03/29/2025. Health Status Allergies: Allergic Reactions (Selected) No Known Medication Allergies, Allergies (1) ActiveSeverityReaction No Known Medication AllergiesNone Documented Current medications: (Selected) Inpatient Medications Ordered Ancef: Start: 02/21/25 8:46:00 EDT, Dose= 2 g, = 20 mL, IV Push (INT), PREOP pharm, Routine, Rate: 240 mL/hr, Infuse over: 5 minute(s), 20 mL, 02/21/25 8:46:00 EDT Bicitra: Start: 02/21/25 8:46:00 EDT, Dose = 30 mL, Soln, Oral, PREOP pharm, 02/21/25 8:46:00 EDT Bolus LR 500 mL: Start: 02/21/25 8:46:00 EDT, Dose = 500 mL, Soln, IV Bolus, AsDirected, PRN, Other (see order comments), 1 dose(s), Stop: Limited # of times, Rate: 999 mL/hr, hour(s), 02/21/25 8:46:00 EDT Brethine: Start: 02/21/25 8:46:00 EDT, Dose = 0.25 mg, = 0.25 mL, Subcutaneous, AsDirected, PRN, Control symptoms, 02/21/25 8:46:00 EDT Dextrose 50% IV Push: Start: 02/21/25 8:46:00 EDT, Dose = 12.5 gram(s), = 25 mL, IV Push, AsDirected, PRN, Hypoglycemia, 02/21/25 8:46:00 EDT LR 1,000 mL: Start: 02/21/25 8:46:00 EDT, Rate: 125 mL/hr, 02/21/25 8:46:00 EDT Oxytocin for IV (mL/hr) 20 unit(s) + LR Premix Diluent 500 mL: Start: 02/21/25 8:46:00 EDT, after delivery of placenta, see comments, 02/21/25 8:46:00 EDT Pepcid: Start: 02/21/25 8:46:00 EDT, Dose = 20 mg, = 1 tab(s), Oral, Once, PRN, Heartburn, 02/21/25 8:46:00 EDT Pepcid: Start: 02/21/25 8:46:00 EDT, Dose = 20 mg, = 2 mL, IV Push, qDay, PRN, Dyspepsia, mL/hr, Infuse over: 1 minute(s), 0, 02/21/25 8:46:00 EDT Multivitamins: Start: 02/21/25 12:00:00 EDT, Dose = 1 tab(s), Tab, Oral, qDay, 0, 02/21/25 8:58:00 EDT Tylenol: Start: 02/21/25 8:46:00 EDT, Dose = 1,000 mg, = 2 tab(s), Oral, Once, PRN, as needed for pain, 02/21/25 8:46:00 EDT Zithromax IV: Start: 02/21/25 8:46:00 EDT, Dose = 500 mg, = 250 mL, IV Piggyback (MED), PREOP pharm, mL/hr, Infuse over: 1 hour(s), 0, 02/21/25 8:46:00 EDT Zofran: Start: 02/21/25 8:46:00 EDT, Dose = 4 mg, = 2 mL, IV Push, q4h, PRN, Nausea/Vomiting, 02/21/25 8:46:00 EDT adalimumab 40 mg/0.4 mL subcutaneous kit: Start: 06/07/25 9:00:00 EDT, Dose = 40 mg, = 0.4 mL, Subcutaneous, q2wk, Patient's Own Med, 0, 02/21/25 9:01:00 EDT hydrocortisone 100 mg preservative-free injection: Start: 02/21/25 9:00:00 EDT, Dose = 100 mg, IV Push, Once, Stop: 02/21/25 9:00:00 EDT, 0, 02/21/25 8:51:00 EDT ondansetron: Start: 02/21/25 8:46:00 EDT, Dose = 4 mg, = 2 mL, IV Push, Once, PRN, as needed for nausea/vomiting, 02/21/25 8:46:00 EDT predniSONE: Start: 02/21/25 9:11:00 EDT, Dose = 50 mg, = 1 tab(s), Oral, Once, STAT, Stop: 02/21/25 9:11:00 EDT, give with food, 02/21/25 9:11:00 EDT Documented Medications Documented Humira Pen 40 mg/0.4 mL subcutaneous kit: Dose : 40 mg =, Subcutaneous, q2wk, 0 Refill(s) Multivitamins: Oral, qDay, 0 Refill(s) Protonix 40 mg oral enteric coated tablet: Dose : 40 mg = 1 tab(s), Oral, qDay, 0 Refill(s) predniSONE: Dose : 50 mg =, Oral, qDay, 0 Refill(s), Medications (17) Active Scheduled: (7) adalimumab 40 mg/0.4 mL Pen Kit 2 40 mg 0.4 mL, Subcutaneous, q2wk azithromycin 500mg/250mL D5W PMX ED/LDRP Cabinet ONLY 500 mg 250 mL, IV Piggyback (MED), PREOP pharm ceFAZolin syringe 2 g 20 mL, IV Push (INT), PREOP pharm citric acid-sodium citrate 334 mg-500 mg/5 mL (30 mL) Oliva UD 30 mL, Oral, PREOP pharm hydrocortisone 100 mg VIAL 100 mg, IV Push, Once multivitamin, Multivitamins with Folic Acid 1 mg Tab 1 tab(s), Oral, qDay predniSONE 50 mg tablet 50 mg 1 tab(s), Oral, Once Continuous: (2) Lactated Ringers 1,000 mL 1,000 mL, Intravenous, 125 mL/hr oxytocin 20 unit(s) + LR Premix Diluent 500 mL 500 mL, Intravenous PRN: (8) acetaminophen 500 mg Tablet 1,000 mg 2 tab(s), Oral, Once dextrose 50% Solution Disp syringe 50 mL 12.5 gram(s) 25 mL, IV Push, AsDirected famotidine 20 mg tablet 20 mg 1 tab(s), Oral, Once famotidine 20 mg/2 mL vial 20 mg 2 mL, IV Push, qDay Lactated Ringers Injection 500 mL * Bolus * 500 mL, IV Bolus, AsDirected ondansetron 2 mg/ 1 mL 2 mL INJ 4 mg 2 mL, IV Push, q4h ondansetron 2 mg/ 1 mL 2 mL INJ 4 mg 2 mL, IV Push, Once terbutaline 1 mg/ml vial 0.25 mg 0.25 mL, Subcutaneous, AsDirected Problem list: Medical / SNOMED CT [id number] / Confirmed, Active Problems (1) Histories Past Medical History: Resolved ([id number]): Onset on 09/14/2020 at 30 years. Resolved on 06/14/2021 at 31 years. ([id number]): Onset on 07/14/2018 at 28 years. Resolved on 04/13/2019 at 29 years. ([id number]): Onset on 07/25/2017 at 27 years. Resolved in 2018 at 27 years. Family History: No family history items have been selected or recorded. Procedure history: No active procedure history items have been selected or recorded. Social History: Social & Psychosocial Habits Tobacco 02/21/2025 Tobacco Use: Never (less than 100 in l Physical Examination Vital Signs 02/21/2025 8:04 EDT Heart Rate Monitored 76 bpm Systolic Blood Pressure Non-Invasive 131 mmHg Diastolic Blood Pressure Non-Invasive 65 mmHg 02/21/2025 8:04 EDT Temperature Oral 36.9 DegC Respiratory Rate 18 br/min Vital Signs (last 24 hrs) Last Charted Temp Oral36.9 DegC (FEB 21 08:04) Heart Rate Kduxbqoqm10 bpm (FEB 21 08:04) MYU853 mmHg (FEB 21 08:04) DBP65 mmHg (FEB 21 08:04) BMI34.77 (FEB 21 08:52) Measurements from flowsheet : Measurements 02/21/2025 8:52 EDT Height 160 cm Admission Weight 89 kg [place] Body Weight 52.38 kg BSA Admission 1.92 Body Mass Index 34.77 kg/m2 02/21/2025 8:00 EDT Height 160 cm Admission Weight 89 kg [place] Body Weight 52.38 kg BSA Admission 1.92 Body Mass Index 34.77 kg/m2 General: Alert and oriented. Airway: Normal temporomandibular joint mobility, Normal neck range of motion, Trachea midline. Mallampati classification: I (soft palate, fauces, uvula, pillars visible). Head: Normocephalic. Dentition Evaluation: Intact, Own teeth. Neck: Supple. Respiratory: Respirations are non-labored. Neurologic: Alert, Oriented. Review / Management Results review: Labs (Last four charted values) WBC 8.1(FEB 21) Hgb L 8.8(FEB 21) Hct L 26.2(FEB 21) Plt 327(FEB 21) , Lab results 02/21/2025 10:02 EDT Lactated Ringers Injection Begin Bag 1,000 mL mL 02/21/2025 9:00 EDT Uterine Contraction Monitoring Method External toco Baby A FHR Baseline: 145 bpm FHR Baseline Variability: Moderate variability FHR Accelerations: Present FHR Deceleration: Absent 02/21/2025 8:52 EDT OB History and Physical OB Admission H&P (Modified) 02/21/2025 8:52 EDT Blood Type, External AB positive Rubella, External Unknown HIV Antibodies, External Unknown Group B Strep, External Unknown Hepatitis B, External Negative Hepatitis B Date Performed 10/08/2024 RPR, External Nonreactive Designated Person #1 We May Share PHI Rivera Designated Person #1 Relationship Spouse Privacy Restrictions Requested None Height 160 cm Admission Weight 89 kg [place] Body Weight 52.38 kg BSA Admission 1.92 Body Mass Index 34.77 kg/m2 Expected Outcome Live Patient Type Inpatient Thrombosis Risk Factors (1) or post- less than 1 month Thrombosis Risk Factor Add'l Assessment (1) Surgery (Anesthesia equal to or less than 60 minutes) Thrombosis Risk Score 2 Status Yes Risk Factors, Antepartum Current Preg Other: Crohns Vaginal bleeding No PPH Risk Medium risk for hemorrhage PPH Medium Risk Factors Prior or uterine surgery Feeding Breast milk, Formula Anesthesia/Pain Medication During Labor Epidural/Spinal Circumcision No Baby For Adoption No Surrogate No Tubal Sterilization Planned No Discharge Physician [facility] Participant No Safe Sleep Environment for Baby Yes Safe Sleep Environment Outside Home Yes Maternal Transport No Thoughts of Harming Others - History No Thoughts of Suicide - History No Coping Effective Hospital Clergy to Visit Declines Visit From Spiritual Care Staff Financial Concerns Re: Hospital/Disch No Living Situation Home independently Current Home Treatments None Professional Skilled Services None Special Services and Community Resources None Advanced Directives No - refuses information Infectious Disease Symptoms Patient states no symptoms Infectious Disease Recent Exposure No Alcohol and Drug Use No Employee of Institutional Living No Health Care Employee No History of Exposure to TB No History of Positive Chest X-Ray for TB No History of Positive TB Skin Test No Homeless No Known Immunosuppression No Recent Immigrant No Resident of Institutional Living No Bloody Sputum No Fatigue No Fever No Loss of Appetite No Night Sweats No Persistent Cough > 3 Weeks No Weight Loss No Preferred Spoken Language Russian Preferred Written Language Russian Teaching Evaluation No further teaching needed Safety Brochure Information Reviewed Yes Tien Martinez Video Viewed No Chief Complaint leaking Emergency Contact Number [phone] Breonna (refuse driver) Mode of Transfer Private vehicle Discharge To, Anticipated Home independently Other Anticipated Needs After Discharge No Anticoagulants Taken In Past 6 Wks. No Prev Test Positive/Diagnosis w/COVID-19 No Current Quarantine/Isolated any Illness No Any Contact with Sick Animals/Birds No Traveled Anywhere in Last 30 Days No No Anesthesia/Transfusions Prior anesthesia Admission Note-Nursing Patient History OB (Modified) 02/21/2025 8:50 EDT WBC 8.1 10^3/mcL RBC 3.05 10^6/mcL LOW Hgb 8.8 G/dL LOW Hct 26.2 % LOW MCV 85.9 fL MCH 28.8 pg MCHC 33.5 G/dL RDW 15.3 % Platelet 327 10^3/mcL MPV 6.1 fL LOW Neutrophil % 72.1 % Lymphocyte % 22.3 % Monocyte % 4.7 % Eosinophil % 0.6 % Basophil % 0.3 % Neutrophil, Absolute 5.9 10^3/mcL Lymphocyte, Absolute 1.8 10^3/mcL Monocyte, Absolute 0.4 10^3/mcL Eosinophil, Absolute 0.0 10^3/mcL Basophil, Absolute 0.0 10^3/mcL ABO/Rh Interp AB POS ABSC Interp (Gel) Negative ABSC 02/21/2025 8:45 EDT Lactated Ringers Injection Begin Bag 1,000 mL mL 02/21/2025 8:30 EDT Forearm Left 02/21/2025 20 gauge Peripheral IV Activity: Insert new site Peripheral IV Dressing Condition: Clean, Dry, Intact Peripheral IV Dressing Activity: Applied, Transparent dressing Peripheral IV Line Status/Patency: Flushes easily, Continuous infusion Peripheral IV Site Condition: No complications Peripheral IV Equipment: Manual Peripheral IV Number of Attempts: 1 02/21/2025 8:[address] Carey at bedside, SSE done; Vaginal exam performed 02/21/2025 8:15 EDT Speculum Exam Procedure explained, Patient assisted to lithotomy position, Privacy provided for patient, GBS culture obtained, RADHA done, Nitrazine positive, Wet [place], [place] POC 02/21/2025 8:04 EDT Heart Rate Monitored 76 bpm Systolic Blood Pressure Non-Invasive 131 mmHg Diastolic Blood Pressure Non-Invasive 65 mmHg 02/21/2025 8:04 EDT Temperature Oral 36.9 DegC Respiratory Rate 18 br/min 02/21/2025 8:01 EDT Oxygen Saturation 100 % 02/21/2025 8:00 EDT Height 160 cm Admission Weight 89 kg [place] Body Weight 52.38 kg BSA Admission 1.92 Body Mass Index 34.77 kg/m2 Expected Outcome Live Status Yes Risk Factors, Antepartum Current Preg Other: Crohns Movement Present Vaginal bleeding No Maternal Transport No Thoughts of Harming Others - History No Thoughts of Suicide - History No Advanced Directives No - refuses information Infectious Disease Symptoms Patient states no symptoms Infectious Disease Recent Exposure No Alcohol and Drug Use No Employee of Institutional Living No Health Care Employee No History of Exposure to TB No History of Positive Chest X-Ray for TB No History of Positive TB Skin Test No Homeless No Known Immunosuppression No Recent Immigrant No Resident of Institutional Living No Bloody Sputum No Fatigue No Fever No Loss of Appetite No Night Sweats No Persistent Cough > 3 Weeks No Weight Loss No Preferred Spoken Language Russian Preferred Written Language Russian Chief Complaint leaking Emergency Contact Number [phone] Breonna (refuse driver) Mode of Transfer Private vehicle Prev Test Positive/Diagnosis w/COVID-19 No Current Quarantine/Isolated any Illness No Any Contact with Sick Animals/Birds No Traveled Anywhere in Last 30 Days No No Admission Note-Nursing Patient History OB ED Triage 02/21/2025 7:58 EDT OBHx 4 OBHx Abortions 1 OBHx Spontaneous Abortions 1 02/21/2025 7:57 EDT OBHx 3 (Modified) OBHx Para 2 (Modified) OBHx Para Full Term 2 (Modified) OBHx Living Children 2 (Modified) 02/21/2025 7:57 EDT OBHx Abortions 0 OBHx Ectopic Pregnancies 0 OBHx Induced Abortions 0 OBHx Multiple Births 0 OBHx Spontaneous Abortions 0 OBHx Births 0 . Documentation reviewed: Current records. Assessment and Plan [place] [employer] (ASA) physical status classification: Class II. Anesthetic Preoperative Plan Premedication: None. Anesthetic technique: Spinal. Induction: NC. Regional: Spinal. Risks discussed: nausea, vomiting, headache, sore throat, dental injury, hypotension, allergic reaction, serious complications. Informed consent: signed by patient. Digitally Signed by BERTA GELLER on 02/21/2025 10:26 AM Digitally Signed by NIKHIL YATES DO on 02/21/2025 01:15 PM [facility] 01-14-2025 Discharge summary [facility] 01-14-2025 Discharge summary [facility] 01-14-2025 Note [facility] Medical Records Department [address] [place] [address] Discharge Summary 01/14/25 1645 MR#: [id number] Acct: [id number] Name: SHERI SOUTH Rep #: [id number] : 1990 34 From: Yoanna Salazar DO PCP: Dr. Lan Simmons MD Status:ADM IN Location: EA317-0 Providers Date of Admission: 01/14/25 Primary Care Physician: Dr. Lan Simmons MD Consultations 01/12/25 16:37 Consult: Gastroenterology Routine Consulting Provider: [facility] Reason for Consult: Crohn's, GI bleed EMERGENT Consult: No MD Notified: Yes Date Notified: 01/12/25 Time Notified: 10:00 Method of Notification: Verbal Reason For Visit: GI BLEED IN Diagnosis Discharge Diagnosis (1) Acute GI bleeding: Status: Acute Code(s): K92.2 - Gastrointestinal hemorrhage, unspecified Plan: waiting on rest of labs that Dr. Galdamez ordered continue solumedrol q 8 hrs (2) 29 weeks gestation of : Status: Acute Code(s): Z3A.29 - 29 weeks gestation of Plan: NSTs reactive. no decelerations noted. no contractions. will need a growth scan in 2 weeks with doppler likely to rule out anemia. (3) Anemia: Status: Acute Code(s): D64.9 - Anemia, unspecified Plan: iron studies are overall normal. This is due to acute blood loss anemia. She is status post 2 units of blood with minimal uprise in hg levels. Currently asymptomatic. (4) and not yet delivered: Status: Acute Code(s): Z34.90 - Encounter for supervision of normal , unspecified, unspecified trimester (5) Crohn's disease: Status: Acute Code(s): K50.90 - Crohn's disease, unspecified, without complications (6) Vasculitis: Status: Acute Code(s): I77.6 - Arteritis, unspecified Medications at Discharge Home Medications adalimumab 40 mg/0.4 mL subcutaneous syringe kit (Humira(CF)) 40 mg subcut Q2W 01/11/25 sacmcechjemo-hna-gwdw 18 mg-folic 400 mcg-vit K1 120 mcg-herbal tablet 1 tab PO DAILY 01/11/25 [facility] Iron 1 cap PO BID 01/13/25 ascorbic acid (vitamin C) 500 mg chewable tablet (Acerola C) 500 mg PO BID 01/13/25 Hospital Course Operations None Procedures None Summary of Care Provided Minutes Spent on Discharge: 15 Hospital Course: The patient was admitted to [facility] due to acute blood loss anemia due to IBD flair that caused a GI bleed. She is 29 weeks gestation. She was transfused 2 units of PRBCs and her hg improved minimally but was found to be stable. Dr. Galdamez from ordered solumedrol 125 mg IV every 8 hours from 01/11/25 through 01/14/25. Inflammatory markers were followed by J[facility]. The baby was on continuous monitoring for the first 24 hrs without decelerations or contractions. There after she was on NST's q shift and they were noted to be normal. The decision was made by to send her home on oral steroids on the evening of 01/14/25 and with close outpatient observation. The patient had a growth scan 2 weeks with MFM at [place] and plans to return in 2 weeks and every 4 weeks for growth scans until delivery. Physical Exam HEENT normocephalic Resp normal respiratory effort and normal air movement GI soft to palpation, non-tender and non-distended no CVA tenderness Extremity normal to inspection General Extremity: edema bilateral (trace ) ABG / Lab / Microbiology Data 01/14/25 05:20 01/14/25 07:55 Laboratory: Laboratory Results - last 24 hr 01/12/25 10:15: Crossmatch See Detail 01/14/25 05:20: WBC 11.4 H, RBC 3.13 L, Hgb 8.9 L, Hct 28.6 L, MCV 91.4, MCH 28.4, MCHC 31.1 L, RDW Std Deviation 49.1 H, RDW Coeff of Shira 15.0 H, Plt Count 364, MPV 7.8, Immature Gran % (Auto) 1.600 H, Neut % (Auto) 74.3 H, Lymph % (Auto) 20.1, Sequoyah % (Auto) 3.7, Eos % (Auto) 0.0, Baso % (Auto) 0.3, Absolute Neuts (auto) 8.5 H, Absolute Lymphs (auto) 2.29, Nucleated RBC % 0 01/14/25 07:55: ESR 41 H, Sodium 135, Potassium 4.3, Chloride 103, Carbon Dioxide 20.4 L, Anion Gap 11, BUN 7, Creatinine 0.42 L, Est GFR (MDRD) Non-Af 132, BUN/Creatinine Ratio 16.2, Glucose 115 H, Calcium 8.7, Total Bilirubin 0.28, AST 35 H, ALT 23, Alkaline Phosphatase 169 H, C-React Prot Ext Range 14.70 H, Total Protein 7.5, Albumin 2.6 L, Globulin 4.9 H, Albumin/Globulin Ratio 0.5 L Microbiology: Microbiology 01/12/25 21:25 Stool Stool Lactoferrin - Final 01/12/25 21:25 Stool Enteric Bacteriology - Final 01/12/25 21:25 Stool Clostridioides difficile (PCR) - Final D/C Instructions Discharge Diet: No restrictions May resume sexual activity in: No Restrictions Weight Bearing Status: Weight bearing as tolerated Call your doctor if you observe: Fever of 101 or Higher, Dizziness, Chest pain, Increased palpitations (irregular heartbeat), Calf discomfort and Uncontrolled pain DC O2, CPAP, BIPAP Needs Home O2 Dis (more content not included)... [facility] 01-14-2025 Progress note Note Date/Time January 14, 2025 8:07am [facility] Medical Records Department [address] [place] [address] Progress Note - OBGYN 01/14/25 0804 MR#: [id number] Acct: [id number] Name: SHERI SOUTH Rep #:[id number] : 1990 34 From: Yoanna Benedict Vasques DO PCP: Dr. Lan Simmons MD Status:R EG CLI Location: [id number] Subjective Subjective patient is laying in bed. No loss of fluid, vaginal bleeding, or decreased movement. She states she only sees blood from the rectum when wiping herself. No diarrhea, same as yesterday. No shortness of breath, chest pain, or rapid heart rate. Nurse reports that she heard a murmur yesterday though. Objective Data Objective Data Vital Signs: Vital Signs Temp Pulse Resp BP Pulse Ox O2 Del Method 97.8 F 67 16 106/63 97 Room Air 01/14/25 05:14 01/14/25 07:50 01/14/25 05:14 01/14/25 07:50 01/14/25 07:50 01/13/25 03:39 Oxygen Delivery Method Room Air Intake & Output: Intake and Output for Last 24 Hours 01/12/25 01/13/25 01/14/25 23:59 23:59 23:59 Intake Total 327.3 / 327.3 854.7 / 854.7 Output Total Balance 327.3 / 327.3 854.7 / 854.7 - / 1 Lab / Micro Data 01/14/25 05:20 01/12/25 10:15 Labs: Laboratory Results - last 24 hr 01/12/25 10:15: Crossmatch See Detail 01/14/25 05:20: WBC 11.4 H, RBC 3.13 L, Hgb 8.9 L, Hct 28.6 L, MCV 91.4, MCH 28.4, MCHC 31.1 L, RDW Std Deviation 49.1 H, RDW Coeff of Shira 15.0 H, Plt Count 364, MPV 7.8, Immature Gran % (Auto) 1.600 H, Neut % (Auto) 74.3 H, Lymph % (Auto) 20.1, [place] % (Auto) 3.7, Eos % (Auto) 0.0, Baso % (Auto) 0.3, Absolute Neuts (auto) 8.5 H, Absolute Lymphs (auto) 2.29, Nucleated RBC % 0 Micro: Microbiology 01/12/25 21:25 Stool Stool Lactoferrin - Final 01/12/25 21:25 Stool Enteric Bacteriology - Final 01/12/25 21:25 Stool Clostridioides difficile (PCR) - Final ROS Constitutional Constitutional: Denies chills, fatigue, fever(s), poor appetite or weakness Eyes Eyes: Denies blurry vision, change in vision, seeing flashes or spots in vision ENT HEENT: Denies dizziness, headache(s), loss taste/smell or sore throat Cardiovascular Cardiovascular: Denies chest pain, dizziness, dyspnea, irregular heart rhythm, palpitations or rapid heart rate Respiratory/Chest Respiratory/Chest: Denies chest tightness, cough, dyspnea or breast pain Gastrointestinal Gastrointestinal: Denies abdominal pain, constipation or vomiting Genitourinary Genitourinary: Denies dysuria or flank pain Musculoskeletal Musculoskeletal: Denies difficulty walking, joint pain, limited range of motion or numbness Neurologic Neurologic: Denies abnormal movements, abnormal speech, dizziness, numbness, seizure-like activity or syncope Psychiatric Psychiatric: Denies anxiety, behavioral changes, change in appetite, confusion, depression or suicidal thoughts Physical Exam Const alert, oriented x3 and no apparent distress General Appearance: cooperative and comfortable HEENT normocephalic Resp normal respiratory effort Cardio regular rate GI Palpation: soft no CVA tenderness Back/Spine no CVA tenderness and thoraco-lumbar ROM normal Extremity normal to inspection, no clubbing, cyanosis or edema, no calf tenderness and no pedal edema General Extremity: edema bilateral (trace ) Psych mental status grossly normal, thought process normal, cooperative, affect normal, speech normal, activity/motor behavior normal, denies homicidal ideationand denies suicidal ideation NST FHR Rate Baby A Baseline: 145 Variability:: Moderate Accelerations:: 15 x 15 Decelerations:: None NST Reactive:: Yes FHR Category:: Category I Uterine Activity:: no contractions Assessment & Plan (1) Acute GI bleeding: PLAN: waiting on rest of labs that Dr. Galdamez ordered continue solumedrol q 8 hrs (2) 29 weeks gestation of : PLAN: NSTs reactive. no decelerations noted. no contractions. will need a growth scan in 2 weeks with doppler likely to rule out anemia. (3) Anemia: PLAN: iron studies are overall normal. This is due to acute blood loss anemia. She is status post 2 units of blood withminimal uprise in hg levels. Currently asymptomatic. (4) and not yet delivered: (5) Crohn's disease: (6) Vasculitis: Charges/Coding Visit Charges Inpatient E&M: 66552 Subs Hosp L3 Multi Select Codes Urinary/Genital Urinary/Genital CPT Codes: 10052-00 non-stress test Interp 01/14/25 0807 <Electronically signed by Yoanna Salazar DO> Cosigner Signature (if applicable): CC: ~ Signed [facility] Work Phone: [phone] [facility] Medical Records Department [address] [place] [address] Progress Note - OBGYN 01/14/25 0804 MR#: [id number] Acct: [id number] Name: SHERI SOUTH Rep #:[id number] : 1990 34 From: Yoanna Salazar DO PCP: Dr. Lan Simmons MD Status:R EG CLI Location: [place] [id number] Subjective Subjective patient is laying in bed. No loss of fluid, vaginal bleeding, or decreased movement. She states she only sees blood from the rectum when wiping herself. No diarrhea, same as yesterday. No shortness of breath, chest pain, or rapid heart rate. Nurse reports that she heard a murmur yesterday though. Objective Data Objective Data Vital Signs: Vital Signs Temp Pulse Resp BP Pulse Ox O2 Del Method 97.8 F 67 16 106/63 97 Room Air 01/14/25 05:14 01/14/25 07:50 01/14/25 05:14 01/14/25 07:50 01/14/25 07:50 01/13/25 03:39 Oxygen Delivery Method Room Air Intake & Output: Intake and Output for Last 24 Hours 01/12/25 01/13/25 01/14/25 23:59 23:59 23:59 Intake Total 327.3 / 327.3 854.7 / 854.7 Output Total Balance 327.3 / 327.3 854.7 / 854.7 -1 / -1 Lab / Micro Data 01/14/25 05:20 01/12/25 10:15 Labs: Laboratory Results - last 24 hr 01/12/25 10:15: Crossmatch See Detail 01/14/25 05:20: WBC 11.4 H, RBC 3.13 L, Hgb 8.9 L, Hct 28.6 L, MCV 91.4, MCH 28.4, MCHC 31.1 L, RDWStd Deviation 49.1 H, RDW Coeff of Shira 15.0 H, Plt Count 364, MPV 7.8, Immature Gran % (Auto) 1.600H, Neut % (Auto) 74.3 H, Lymph % (Auto) 20.1, Sequoyah % (Auto) 3.7, Eos % (Auto) 0.0, Baso % (Auto) 0.3, Absolute Neuts (auto) 8.5 H, Absolute Lymphs (auto) 2.29, Nucleated RBC % 0 Micro: Microbiology 01/12/25 21:25 Stool Stool Lactoferrin - Final 01/12/25 21:25 Stool Enteric Bacteriology - Final 01/12/25 21:25 Stool Clostridioides difficile (PCR) - Final ROS Constitutional Constitutional: Denies chills, fatigue, fever(s), poor appetite or weakness Eyes Eyes: Denies blurry vision, change in vision, seeing flashes or spots in vision ENT HEENT: Denies dizziness, headache(s), loss taste/smell or sore throat Cardiovascular Cardiovascular: Denies chest pain, dizziness, dyspnea, irregular heart rhythm, palpitations or rapid heart rate Respiratory/Chest Respiratory/Chest: Denies chest tightness, cough, dyspnea or breast pain Gastrointestinal Gastrointestinal: Denies abdominal pain, constipation or vomiting Genitourinary Genitourinary: Denies dysuria or flank pain Musculoskeletal Musculoskeletal: Denies difficulty walking, joint pain, limited range of motion or numbness Neurologic Neurologic: Denies abnormal movements, abnormal speech, dizziness, numbness, seizure-like activity or syncope Psychiatric Psychiatric: Denies anxiety, behavioral changes, change in appetite, confusion, depression or suicidal thoughts Physical Exam Const alert, oriented x3 and no apparent distress General Appearance: cooperative and comfortable HEENT normocephalic Resp normal respiratory effort Cardio regular rate GI Palpation: soft no CVA tenderness Back/Spine no CVA tenderness and thoraco-lumbar ROM normal Extremity normal to inspection, no clubbing, cyanosis or edema, no calf tenderness and no pedal edema General Extremity: edema bilateral (trace ) Psych mental status grossly normal, thought process normal, cooperative, affect normal, speech normal, activity/motor behavior normal, denies homicidal ideationand denies suicidal ideation NST FHR Rate Baby A Baseline: 145 Variability:: Moderate Accelerations:: 15 x 15 Decelerations:: None NST Reactive:: Yes FHR Category:: Category I Uterine Activity:: no contractions Assessment & Plan (1) Acute GI bleeding: PLAN: waiting on rest of labs that Dr. Galdamez ordered continue solumedrol q 8 hrs (2) 29 weeks gestation of : PLAN: NSTs reactive. no decelerations noted. no contractions. will need a growth scan in 2 weeks with doppler likely to rule out anemia. (3) Anemia: PLAN: iron studies are overall normal. This is due to acute blood loss anemia. She is status post 2 units of blood withminimal uprise in hg levels. Currently asymptomatic. (4) and not yet delivered: (5) Crohn's disease: (6) Vasculitis: Charges/Coding Visit Charges Inpatient E&M: 19114 Subs Hosp L3 Multi Select Codes Urinary/Genital Urinary/Genital CPT Codes: 57959-16 non-stress test Interp 01/14/25 0807 Cosigner Signature (if applicable): CC: ~ Signed [facility]04-27-2025 Progress note Author Yoanna Vasques [facility] Note Date/Time January 13, 2025 10: 58am [facility] Medical Records Department [address] [place] [address] Progress Note - OBGYN 01/13/25 1051 MR#: [id number] Acct: [id number] Name: SHERI SOUTH [place] Rep #:[id number] : 1990 34 From: Yoanna Salazar DO PCP: Dr. Lan Simmons MD Status:R EG CLI Location: [place] [id number] Subjective Subjective patient is laying in bed and appears more energetic than yesterday. She states that she is starting to feel more energy. No loss of fluid, vaginal bleeding, ordecreased movement. She was very happy with the consultation with Dr. Galdamez yesterday and they feel they are well informed and a plan is in place. Noloss of fluid, vaginal bleeding, or decreased movement. She states she only sees blood from the rectum when wiping herself. No diarrhea. Objective Data Objective Data Vital Signs: Vital Signs Temp Pulse Resp BP Pulse Ox O2 Del Method 97.6 F L 90 16 117/69 96 Room Air 01/13/25 08:08 01/13/25 08:08 01/13/25 08:08 01/13/25 08:08 01/13/25 08:08 01/13/25 03:39 Oxygen Delivery Method Room Air Intake & Output: Intake and Output for Last 24 Hours 01/11/25 01/12/25 01/13/25 23:59 23:59 23:59 Intake Total 327.3 / 327.3 854.7 / 854.7 Balance 327.3 / 327.3 854.7 / 854.7 Lab / Micro Data 01/13/25 06:10 01/12/25 10:15 Labs: Laboratory Results - last 24 hr 01/12/25 10:15: WBC 9.0, RBC 3.05 L, Hgb 8.4 L, Hct 27.1 L, MCV 88.9, MCH 27.5, MCHC 31.0 L, RDW Std Deviation 47.1 H, RDW Coeff of Shira 14.8 H, Plt Count 399, MPV 8.0, Immature Gran % (Auto) 1.300 H, Neut % (Auto) 76.5 H, Lymph % (Auto) 21.5, Sequoyah % (Auto) 0.6, Eos % (Auto) 0.0, Baso % (Auto) 0.1, Absolute Neuts (auto) 6.9, Absolute Lymphs (auto) 1.92, Nucleated RBC % 0, ESR 44 H, Retic Count 2.48 H, Immature Retic Fraction 22.90 H, Retic Hgb Equivalent 30.1, [id number], Potassium 4.1, Chloride 99, Carbon Dioxide 21.4, Anion Gap 13, BUN 5, Creatinine 0.42 L, Est GFR (MDRD) Non- Af 133, BUN/Creatinine Ratio 11.0, Glucose 123 H, Calcium 9.0, Iron 54, TIBC 337, Iron Saturation 16.0, Unsaturated IBC 283, Ferritin 178, Total Bilirubin 0.33, AST 20, ALT 19, Alkaline Phosphatase 259 H, C-React Prot Ext Range 81.50 H, Total Protein 8.1, Albumin 2.7 L, Globulin 5.4 H, Albumin/Globulin Ratio 0.5 L, Amylase 18 L, Lipase 16, Blood TypeAB POSITIVE, Antibody Screen NEGATIVE, Crossmatch See Detail 01/12/25 10:15: Crossmatch See Detail 01/12/25 20:00: WBC 10.8, RBC 3.01 L, Hgb 8.6 L, Hct 27.1 L, MCV 90.0, MCH 28.6,MCHC 31.7 L, RDW Std Deviation 47.3 H, RDW Coeff of Shira 14.6, Plt Count 442, MPV8.1, Immature Gran % (Auto) 1.500 H, Neut % (Auto) 74.1 H, Lymph % (Auto) 21.3, Sequoyah % (Auto) 3.0, Eos % (Auto) 0.0, Baso % (Auto) 0.1, Absolute Neuts (auto) 8.0 H, Absolute Lymphs (auto) 2.31, Nucleated RBC % 0, Scl-70 Scleroderma Ab TNP 01/13/25 06:10: WBC 10.4, RBC 3.22 L, Hgb 9.4 L, Hct 29.5 L, MCV 91.6, MCH 29.2,MCHC 31.9 L, RDW Std Deviation 48.4 H, RDW Coeff of Shira 14.8 H, Plt Count 401, MPV 7.7, Immature Gran % (Auto) 2.300 H, Neut % (Auto) 70.2 H, Lymph % (Auto) 24.0, Sequoyah % (Auto) 3.4, Eos % (Auto) 0.0, Baso % (Auto) 0.1, Absolute Neuts (auto) 7.3, Absolute Lymphs (auto) 2.48, Nucleated RBC % 0, Lactate Dehydrogenase 134 Micro: Microbiology 01/12/25 21:25 Stool Stool Lactoferrin - Final 01/12/25 21:25 Stool Enteric Bacteriology - Final 01/12/25 21:25 Stool Clostridioides difficile (PCR) - Final ROS Constitutional Constitutional: Denies chills, fatigue, fever(s), poor appetite or weakness Eyes Eyes: Denies blurry vision, change in vision, seeing flashes or spots in vision ENT HEENT: Denies dizziness, headache(s), loss taste/smell or sore throat Cardiovascular Cardiovascular: Denies chest pain, dizziness, dyspnea, irregular heart rhythm, palpitations or rapid heart rate Respiratory/Chest Respiratory/Chest: Denies chest tightness, cough, dyspnea or breast pain Gastrointestinal Gastrointestinal: Denies abdominal pain, constipation or vomiting Genitourinary Genitourinary: Denies dysuria or flank pain Musculoskeletal Musculoskeletal: Denies difficulty walking, joint pain, limited range of motion or numbness Neurologic Neurologic: Denies abnormal movements, abnormal speech, dizziness, numbness, seizure-like activity or syncope Psychiatric Psychiatric: Denies anxiety, behavioral changes, change in appetite, confusion, depression or suicidal thoughts Physical Exam Const alert, oriented x3 and no apparent distress General Appearance: cooperative and comfortable HEENT normocephalic Resp normal respiratory effort Cardio regular rate GI Palpation: soft no CVA tenderness Back/Spine no CVA tenderness and thoraco-lumbar ROM normal Extremity normal to inspection, no clubbing, cyanosis or edema, no calf tenderness and no pedal edema General Extremity: edema bilateral (trace ) Psych mental status grossly normal, thought process normal, cooperative, affect normal, speech normal, activity/motor behavior normal, denies homicidal ideationand denies suicidal ideation NST FHR Rate Baby A Baseline: 145 Variability:: Moderate Accelerations:: 15 x 15 Decelerations:: None NST Reactive:: Yes FHR Category:: Category I Uterine Activity:: no contractions Assessment & Plan (1) Acute GI bleeding: (2) 29 weeks gestation of : (3) Anemia: (4) and not yet delivered: (5) Crohn's disease: (6) Vasculitis: PLAN: Plan hg up to 9.4 today after 2 units of blood. will rpt cbc tomorrow. labs from GI are pending. continue steroids SCD's ordered when in bed. Encouraged oob amb. today along with more PO hydration. Charges/Coding Visit Charges Inpatient E&M: 83145 Subs Hosp L3 Multi Select Codes Urinary/Genital Urinary/Genital CPT Codes: 13611-65 non-stress test Interp 01/13/25 1058 <Electronically signed by Yoanna Salazar DO> Cosigner Signature (if applicable): CC: ~ Signed [facility] Work Phone: 1(294) 694-422304-27-[address] [facility] Medical Records Department [address] [place] [address] Progress Note - OBGYN 01/13/25 1051 MR#: [id number] Acct: [id number] Name: SHERI SOUTH Rep #:[id number] : 1990 34 From: Yoanna Salazar DO PCP: Dr. Lan Simmons MD Status:R EG CLI Location: [place] [id number] Subjective Subjective patient is laying in bed and appears more energetic than yesterday. She states that she is startingto feel more energy. No loss of fluid, vaginal bleeding, ordecreased movement. She was very happy with the consultation with Dr. Galdamez yesterday and they feel they are well informed and a planis in place. Noloss of fluid, vaginal bleeding, or decreased movement. She states she only sees blood from the rectum when wiping herself. No diarrhea. Objective Data Objective Data Vital Signs: Vital Signs Temp Pulse Resp BP Pulse Ox O2 Del Method 97.6 F L 90 16 117/69 96 Room Air 01/13/25 08:08 01/13/25 08:08 01/13/25 08:08 01/13/25 08:08 01/13/25 08:08 01/13/25 03:39 Oxygen Delivery Method Room Air Intake & Output: Intake and Output for Last 24 Hours 01/11/25 01/12/25 01/13/25 23:59 23:59 23:59 Intake Total 327.3 / 327.3 854.7 / 854.7 Balance 327.3 / 327.3 854.7 / 854.7 Lab / Micro Data 01/13/25 06:10 01/12/25 10:15 Labs: Laboratory Results - last 24 hr 01/12/25 10:15: WBC 9.0, RBC 3.05 L, Hgb 8.4 L, Hct 27.1 L, MCV 88.9, MCH 27.5, MCHC 31.0 L, RDW Std Deviation 47.1 H, RDW Coeff of Shira 14.8 H, Plt Count 399, MPV 8.0, Immature Gran % (Auto) 1.300 H,Neut % (Auto) 76.5 H, Lymph % (Auto) 21.5, Sequoyah % (Auto) 0.6, Eos % (Auto) 0.0, Baso % (Auto) 0.1, Absolute Neuts (auto) 6.9, Absolute Lymphs (auto) 1.92, Nucleated RBC % 0, ESR 44 H, Retic Count 2.48 H, Immature Retic Fraction 22.90 H, Retic Hgb Equivalent 30.1, [id number], Potassium 4.1, Chloride 99, Carbon Dioxide 21.4, Anion Gap 13, BUN 5, Creatinine 0.42 L, Est GFR (MDRD) Non-Af 133, BUN/Creatinine Ratio 11.0, Glucose 123 H, Calcium 9.0, Iron 54, TIBC 337, Iron Saturation 16.0, Unsaturated IBC 283, Ferritin 178, Total Bilirubin 0.33, AST 20, ALT 19, Alkaline Phosphatase 259 H, C-React Prot Ext Range 81.50 H, Total Protein 8.1, Albumin 2.7 L, Globulin 5.4 H, Albumin/Globulin Ratio 0.5 L,Amylase 18 L, Lipase 16, Blood TypeAB POSITIVE, Antibody Screen NEGATIVE, Crossmatch See Detail 01/12/25 10:15: Crossmatch See Detail 01/12/25 20:00: WBC 10.8, RBC 3.01 L, Hgb 8.6 L, Hct 27.1 L, MCV 90.0, MCH 28.6,MCHC 31.7 L, RDW Std Deviation 47.3 H, RDW Coeff of Shira 14.6, Plt Count 442, MPV8.1, Immature Gran % (Auto) 1.500 H, Neut % (Auto) 74.1 H, Lymph % (Auto) 21.3, Sequoyah % (Auto) 3.0, Eos % (Auto) 0.0, Baso % (Auto) 0.1, Absolute Neuts (auto) 8.0 H, Absolute Lymphs (auto) 2.31, Nucleated RBC % 0, Scl-70 Scleroderma Ab TNP 01/13/25 06:10: WBC 10.4, RBC 3.22 L, Hgb 9.4 L, Hct 29.5 L, MCV 91.6, MCH 29.2,MCHC 31.9 L, RDW Std Deviation 48.4 H, RDW Coeff of Shira 14.8 H, Plt Count 401, MPV 7.7, Immature Gran % (Auto) 2.300 H,Neut % (Auto) 70.2 H, Lymph % (Auto) 24.0, Sequoyah % (Auto) 3.4, Eos % (Auto) 0.0, Baso % (Auto) 0.1, Absolute Neuts (auto) 7.3, Absolute Lymphs (auto) 2.48, Nucleated RBC % 0, Lactate Dehydrogenase 134 Micro: Microbiology 01/12/25 21:25 Stool Stool Lactoferrin - Final 01/12/25 21:25 Stool Enteric Bacteriology - Final 01/12/25 21:25 Stool Clostridioides difficile (PCR) - Final ROS Constitutional Constitutional: Denies chills, fatigue, fever(s), poor appetite or weakness Eyes Eyes: Denies blurry vision, change in vision, seeing flashes or spots in vision ENT HEENT: Denies dizziness, headache(s), loss taste/smell or sore throat Cardiovascular Cardiovascular: Denies chest pain, dizziness, dyspnea, irregular heart rhythm, palpitations or rapid heart rate Respiratory/Chest Respiratory/Chest: Denies chest tightness, cough, dyspnea or breast pain Gastrointestinal Gastrointestinal: Denies abdominal pain, constipation or vomiting Genitourinary Genitourinary: Denies dysuria or flank pain Musculoskeletal Musculoskeletal: Denies difficulty walking, joint pain, limited range of motion or numbness Neurologic Neurologic: Denies abnormal movements, abnormal speech, dizziness, numbness, seizure-like activity or syncope Psychiatric Psychiatric: Denies anxiety, behavioral changes, change in appetite, confusion, depression or suicidal thoughts Physical Exam Const alert, oriented x3 and no apparent distress General Appearance: cooperative and comfortable HEENT normocephalic Resp normal respiratory effort Cardio regular rate GI Palpation: soft no CVA tenderness Back/Spine no CVA tenderness and thoraco-lumbar ROM normal Extremity normal to inspection, no clubbing, cyanosis or edema, no calf tenderness and no pedal edema General Extremity: edema bilateral (trace ) Psych mental status grossly normal, thought process normal, cooperative, affect normal, speech normal, activity/motor behavior normal, denies homicidal ideationand denies suicidal ideation NST FHR Rate Baby A Baseline: 145 Variability:: Moderate Accelerations:: 15 x 15 Decelerations:: None NST Reactive:: Yes FHR Category:: Category I Uterine Activity:: no contractions Assessment & Plan (1) Acute GI bleeding: (2) 29 weeks gestation of : (3) Anemia: (4) and not yet delivered: (5) Crohn's disease: (6) Vasculitis: PLAN: Plan hg up to 9.4 today after 2 units of blood. will rpt cbc tomorrow. labs from GI are pending. continue steroids SCD's ordered when in bed. Encouraged oob amb. today along with more PO hydration. Charges/Coding Visit Charges Inpatient E&M: 13717 Subs Hosp L3 Multi Select Codes Urinary/Genital Urinary/Genital CPT Codes: 01617-40 non-stress test Interp 01/13/25 1058 Cosigner Signature (if applicable): CC: ~ Signed [facility]04-26-2025 Consult note Author Ruben Galdamez [facility] Note Date/Time January 12, 2025 7:[address] [facility] Medical Records Department [address] [place] [address] Consultation - GI 01/12/25 1857 MR#: [id number] Acct: [id number] Name: SHERI SOUTH Rep #:[id number] : 1990 34 From: Ruben Galdamez DO PCP: Dr. Lan Simmons MD Status:R EG CLI Location: [id number] HPI Consult Data Date of Consult: 01/12/25 HPI Narrative Reason for Consultation: Crohn's flare HPI Narrative: 34-year-old female, G4, P2 at approximately 29 weeks gestation presents with abnormal labs. She has history of Crohn disease and takes Humira. She has an SIEBEL ADMINISTRATOR in [place] and plans on delivering at [facility]. She presents the direction of the gastroenterology CHARLIE Yoanna Tejeda who evaluated her yesterday. Patient's states that with her Crohn disease, the SIEBEL ADMINISTRATOR recommended a electrical and instrumentation mechanic [facility]. Patient relates history that she has had bloody stool and cramping with bowel movements for the last few weeks. She was seen by gastroenterology yesterday and was noted to have a hemoglobin of 8.6 with CRP of 103. Alk phos is elevated to 84 and it was recommended that she be admitted to the hospital for Solu-Medrol 125 mg every 8 hours. Patient denies any vaginal bleeding or cramping. She and her also relate history that it was suggested that with her Crohn disease and that she is on Humira that she be evaluated by highway commissioner. They had an appointment with someone at [facility] who advised them that there is no need for her to deliver at [place] and that she has not high risk and that she could deliver in [place]. She presents today for admission forIV steroids and control of her Crohn's flare. [facility] Medical History delivery delivered Abscess Blood transfusion, without reported diagnosis Home Medications ?Medication ?Instructions ?Recorded ?Last Taken ?Type adalimumab 40 mg/0.4 mL 40 mg subcut Q2W 01/11/25 History subcutaneous syringe kit (Humira(CF)) [id number] 18 mg-folic 1 tab PO DAILY 01/11 Unknown History 400 mcg-vit K1 120 mcg-herbal tablet Allergy/AdvReac Type Severity Reaction Status Date / Time mesalamine AdvReac Intermediate Diarrhea Verified 01/11/25 14:15 Family History no significant family his Social History household members: spouse and children Smoking Status: Never smoker alcohol intake: never substance use type: does not use hubert/lutheran: Mennonite ROS Constitutional Constitutional: Denies fatigue, fever(s), poor appetite, weight gain or weight loss Gastrointestinal Gastrointestinal: Denies belching, bloating, change in bowel habits, change in stool character, chewing difficulty, coffee ground emesis, constipation, cramping, diarrhea, dyspepsia, dysphagia, early satiety, excessive flatus, fecalincontinence, heartburn, hematemesis, hematochezia, hemorrhoids, loose stools, melena, nausea, odynophagia, rectal bleeding, tenesmus, vomiting or weight changes Physical Exam Const alert, oriented x3, no apparent distress and healthy appearing General Appearance: cooperative; Negative for anxious HEENT normocephalic Face and Sinus: normal facial exam Eyes EOMs intact bilaterally and no scleral icterus General Eye: normal appearance of both eyes Neck full ROM and supple Lymph Lymphatic: no lymphadenopathy noted Chest Chest: abnormal inspection of the chest Resp normal respiratory effort Effort and Inspection: able to speak in complete sentences Cardio regular rate GI soft to palpation and non-tender Inspection: gravid Palpation: soft; Negative for tender Back/Spine no CVA tenderness Extremity normal to inspection, full ROM and no clubbing, cyanosis or edema General Extremity: Negative for calf tenderness or edema Skin Lesions: no lesions Rashes: no rashes Psych mental status grossly normal Lab / Micro Data 01/12/25 10:15 01/12/25 10:15 Labs: Laboratory Results - last 24 hr 01/11/25 20:15: WBC 9.1, RBC 3.05 L, Hgb 8.5 L, Hct 27.1 L, MCV 88.9, MCH 27.9, MCHC 31.4 L, RDW Std Deviation 48.0 H, RDW Coeff of Shira 15.0 H, Plt Count 475 H,MPV 7.7, Immature Gran % (Auto) 1.100 H, Neut % (Auto) 56.2, Lymph % (Auto) 32.6, Sequoyah % (Auto) 5.0, Eos % (Auto) 4.8, Baso % (Auto) 0.3, Absolute Neuts (auto) 5.1, Absolute Lymphs (auto) 2.97, Nucleated RBC % 0, Sodium 136, Potassium 3.7, Chloride 100, Carbon Dioxide 22.9, Anion Gap 13, BUN 6, Creatinine 0.49 L, Est GFR (MDRD) Non- Af 127, BUN/Creatinine Ratio 12.2, Glucose 119 H, Calcium 8.9, Total Bilirubin 0.44, AST 29, ALT 22, Alkaline Phosphatase 271 H, Total Protein 8.2, Albumin 2.7 L, Globulin 5.5 H, Albumin/Globulin Ratio 0.5 L, Lipase 20 01/12/25 10:15: WBC 9.0, RBC 3.05 L, Hgb 8.4 L, Hct 27.1 L, MCV 88.9, MCH 27.5, MCHC 31.0 L, RDW Std Deviation 47.1 H, RDW Coeff of Shira 14.8 H, Plt Count 399, MPV 8.0, Immature Gran % (Auto) 1.300 H, Neut % (Auto) 76.5 H, Lymph % (Auto) 21.5, Sequoyah % (Auto) 0.6, Eos % (Auto) 0.0, Baso % (Auto) 0.1, Absolute Neuts (auto) 6.9, Absolute Lymphs (auto) 1.92, Nucleated RBC % 0, ESR 44 H, Retic Count 2.48 H, Immature Retic Fraction 22.90 H, Retic Hgb Equivalent 30.1, [id number], Potassium 4.1, Chloride 99, Carbon Dioxide 21.4, Anion Gap 13, BUN 5, Creatinine 0.42 L, Est GFR (MDRD) Non- Af 133, BUN/Creatinine Ratio 11.0, Glucose 123 H, Calcium 9.0, Iron 54, TIBC 337, Iron Saturation 16.0, Unsaturated IBC 283, Ferritin 178, Total Bilirubin 0.33, AST 20, ALT 19, Alkaline Phosphatase 259 H, C-React Prot Ext Range 81.50 H, Total Protein 8.1, Albumin 2.7 L, Globulin 5.4 H, Albumin/Globulin Ratio 0.5 L, Amylase 18 L, Lipase 16, Blood TypeAB POSITIVE, Antibody Screen NEGATIVE, Crossmatch See Detail Assessment & Plan Assessment/Plan (1) Acute GI bleeding: (2) 29 weeks gestation of : (3) Crohn's disease: PLAN: 29 weeks 4 and para 2 at 29 weeks gestational age who presented to [facility] due lower GI bleeding secondary to a suspected flare of Crohn's disease. The patient reports having acute onset of severe abdominal pain approximately 2 hours prior to admission. Her vitals werestable in the hospital so a CT scan abdomen pelvis was not ordered. She recently completed a prednisone taper in early November 2024 after a hospitalization for Crohn's flare in September. She received her first Humira dose on 08/30/2024. As per the patient's who is at the bedside her Humira level was 6.8 approximately 4 weeks after her introduction to Humira. Current labs reveal microcytic anemia with hemoglobin of 8.6, with c/o bleeding x 3 weeks. Her rectal exam yesterday revealed active perianal disease with 2 open fistula tracts with minimal clear drainage. Currently ,she denies any abdominal pain, cramping or vaginal bleeding. In the ED yesterday she was discovered to have a severely elevated CRP at 101. Her CRP is down to 81. Her ESR was 66 and is down to 44. Her hemoglobin is 8.4 with a MCV of 90, white blood cell count of 9and a platelet count of 399 which is down from 475. Currently she is on methylprednisolone 125 mg IV every 8 hours. Her only drug allergies are mesalamine which causes diarrhea and her. She does not smoke cigarettes. Her only surgical history includes 2 other C-sections. Generally she looks well and nontoxic. We have not done any imaging studies. I went overin detail the potential complications of IBD during such as delivery, low birthweight or increased risk of infection. Differential diagnosis: Flare of Crohn's disease, infectious colitis Plan: - Treatment: Continue methylprednisolone 125 mg IV daily hours - Check acute hepatitis profile, KERI, ANCA, food allergies, repeat daily ESR, CRP, stool test as she does have a history of being colonized by C. difficile and CBC along with CMP. Watch for hypo or hyperkalemia secondary to steroids. Once patient has had a 2/3-3/4 decrease in her CRP and ESR, she has no more diarrhea, she has normal bleeding and she is started on oral steroids without any reoccurrence then it would be safe for her to go home. - : Currently being managed by OB and patient is doing well as is the baby. Charges/Coding Visit Charges Inpatient E&M: 53348 Init Hosp L3 01/12/251914 <Electronically signed by Ruben Galdamez DO> Cosigner Signature (if applicable): CC: Dr. Lan Simmons MD~ Signed [facility] Work Phone: [phone]) [phone] [facility] Medical Records Department [address] [place] [address] Consultation - GI 01/12/25 1857 MR#: [id number] Acct: [id number] Name: SHERI SUOTH Dixie Rep #:[id number] : 1990 34 From: Ruben Galdamez DO PCP: Dr. Lan Simmons MD Status:R EG CLI Location: MM170-5 HPI Consult Data Date of Consult: 01/12/25 HPI Narrative Reason for Consultation: Crohn's flare HPI Narrative: 34-year-old female, G4, P2 at approximately 29 weeks gestation presents with abnormal labs. She hashistory of Crohn disease and takes Humira. She has an SIEBEL ADMINISTRATOR in [place] and [place] [facility]. She presents the direction of the gastroenterology CHARLIE Yoanna Tejeda who evaluated her yesterday. Patient's states that with her Crohn disease, the SIEBEL ADMINISTRATOR recommended a electrical and instrumentation mechanic [facility] [place]. Patient relates history that she has had bloody stool and cramping with bowel movements for the last few weeks. She was seen by gastroenterology yesterday and was noted to have a hemoglobin of 8.6 with CRP of 103. Alk phos is elevated to 84 and it was recommended that she be admitted to the hospital for Solu-Medrol 125 mg every 8 hours. Patient denies any vaginal bleeding or cramping. She and her also relate history that it was suggested that with her Crohn disease and that she is on Humira that she be evaluated by highway commissioner. They had an appointment with someone at [facility] who advised them that there is no need forher to deliver at [place] and that she has not high risk and that she could deliver in [place].She presents today for admission forIV steroids and control of her Crohn's flare. [facility] Medical History delivery delivered Abscess Blood transfusion, without reported diagnosis Home Medications ?Medication ?Instructions ?Recorded ?Last Taken ?Type adalimumab 40 mg/0.4 mL 40 mg subcut Q2W 01/11/25 History subcutaneous syringe kit (Humira(CF)) [id number] 18 mg-folic 1 tab PO DAILY 01/11 Unknown History 400 mcg-vit K1 120 mcg-herbal tablet Allergy/AdvReac Type Severity Reaction Status Date / Time mesalamine AdvReac Intermediate Diarrhea Verified 01/11/25 14:15 Family History no significant family his Social History household members: spouse and children Smoking Status: Never smoker alcohol intake: never substance use type: does not use hubert/lutheran: Mennonite ROS Constitutional Constitutional: Denies fatigue, fever(s), poor appetite, weight gain or weight loss Gastrointestinal Gastrointestinal: Denies belching, bloating, change in bowel habits, change in stool character, chewing difficulty, coffee ground emesis, constipation, cramping, diarrhea, dyspepsia, dysphagia, earlysatiety, excessive flatus, fecalincontinence, heartburn, hematemesis, hematochezia, hemorrhoids, loose stools, melena, nausea, odynophagia, rectal bleeding, tenesmus, vomiting or weight changes Physical Exam Const alert, oriented x3, no apparent distress and healthy appearing General Appearance: cooperative; Negative for anxious HEENT normocephalic Face and Sinus: normal facial exam Eyes EOMs intact bilaterally and no scleral icterus General Eye: normal appearance of both eyes Neck full ROM and supple Lymph Lymphatic: no lymphadenopathy noted Chest Chest: abnormal inspection of the chest Resp normal respiratory effort Effort and Inspection: able to speak in complete sentences Cardio regular rate GI soft to palpation and non-tender Inspection: gravid Palpation: soft; Negative for tender Back/Spine no CVA tenderness Extremity normal to inspection, full ROM and no clubbing, cyanosis or edema General Extremity: Negative for calf tenderness or edema Skin Lesions: no lesions Rashes: no rashes Psych mental status grossly normal Lab / Micro Data 01/12/25 10:15 01/12/25 10:15 Labs: Laboratory Results - last 24 hr 01/11/25 20:15: WBC 9.1, RBC 3.05 L, Hgb 8.5 L, Hct 27.1 L, MCV 88.9, MCH 27.9, MCHC 31.4 L, RDW Std Deviation 48.0 H, RDW Coeff of Shira 15.0 H, Plt Count 475 H,MPV 7.7, Immature Gran % (Auto) 1.100 H, Neut % (Auto) 56.2, Lymph % (Auto) 32.6, Sequoyah % (Auto) 5.0, Eos % (Auto) 4.8, Baso % (Auto) 0.3, Absolute Neuts (auto) 5.1, Absolute Lymphs (auto) 2.97, Nucleated RBC % 0, Sodium 136, Potassium 3.7,Chloride 100, Carbon Dioxide 22.9, Anion Gap 13, BUN 6, Creatinine 0.49 L, Est GFR (MDRD) Non-Af 127, BUN/Creatinine Ratio 12.2, Glucose 119 H, Calcium 8.9, Total Bilirubin 0.44, AST 29, ALT 22, Alkaline Phosphatase 271 H, Total Protein 8.2, Albumin 2.7 L, Globulin 5.5 H, Albumin/Globulin Ratio 0.5L, Lipase 20 // 10:15: WBC 9.0, RBC 3.05 L, Hgb 8.4 L, Hct 27.1 L, MCV 88.9, MCH 27.5, MCHC 31.0 L, RDW Std Deviation 47.1 H, RDW Coeff of Shira 14.8 H, Plt Count 399, MPV 8.0, Immature Gran % (Auto) 1.300 H,Neut % (Auto) 76.5 H, Lymph % (Auto) 21.5, Sequoyah % (Auto) 0.6, Eos % (Auto) 0.0, Baso % (Auto) 0.1, Absolute Neuts (auto) 6.9, Absolute Lymphs (auto) 1.92, Nucleated RBC % 0, ESR 44 H, Retic Count 2.48 H, Immature Retic Fraction 22.90 H, Retic Hgb Equivalent 30.1, [id number], Potassium 4.1, Chloride 99, Carbon Dioxide 21.4, Anion Gap 13, BUN 5, Creatinine 0.42 L, Est GFR (MDRD) Non-Af 133, BUN/Creatinine Ratio 11.0, Glucose 123 H, Calcium 9.0, Iron 54, TIBC 337, Iron Saturation 16.0, Unsaturated IBC 283, Ferritin 178, Total Bilirubin 0.33, AST 20, ALT 19, Alkaline Phosphatase 259 H, C-React Prot Ext Range 81.50 H, Total Protein 8.1, Albumin 2.7 L, Globulin 5.4 H, Albumin/Globulin Ratio 0.5 L,Amylase 18 L, Lipase 16, Blood TypeAB POSITIVE, Antibody Screen NEGATIVE, Crossmatch See Detail Assessment & Plan Assessment/Plan (1) Acute GI bleeding: (2) 29 weeks gestation of : (3) Crohn's disease: PLAN: 29 weeks 4 and para 2 at 29 weeks gestational age who presented to [facility] due lower GI bleeding secondary to a suspected flare of Crohn's disease. The patient reports having acute onset of severe abdominal pain approximately 2 hours prior to admission. Hervitals werestable in the hospital so a CT scan abdomen pelvis was not ordered. She recently completed a prednisone taper in early November 2024 after a hospitalization for Crohn's flare in September. She received her first Humira dose on 08/30/2024. As per the patient's who is at the bedside her Humira level was 6.8 approximately 4 weeks after her introduction to Humira. Current labs reveal microcytic anemia with hemoglobin of 8.6, with c/o bleeding x 3 weeks. Her rectal exam yesterday revealed active perianal disease with 2 open fistula tracts with minimal clear drainage. Currently ,she denies any abdominal pain, cramping or vaginal bleeding. In the ED yesterday she was discovered to have a severely elevated CRP at 101. Her CRP is down to 81. Her ESR was 66 and is down to 44. Her hemoglobin is 8.4 with a MCV of 90, white blood cell count of 9and a platelet count of 399 which is down from 475. Currently she is on methylprednisolone 125 mg IV every 8 hours. Her only drug allergies are mesalamine which causes diarrhea and her. She does not smoke cigarettes. Her only surgical history includes2 other C-sections. Generally she looks well and nontoxic. We have not done any imaging studies. I went overin detail the potential complications of IBD during such as delivery, lowbirthweight or increased risk of infection. Differential diagnosis: Flare of Crohn's disease, infectious colitis Plan: - Treatment: Continue methylprednisolone 125 mg IV daily hours - Check acute hepatitis profile, KERI, ANCA, food allergies, repeat daily ESR, CRP, stool test as she does have a history of being colonized by C. difficile and CBC along with CMP. Watch for hypo or hyperkalemia secondary to steroids. Once patient has had a 2/3-3/4 decrease in her CRP and ESR, she has no more diarrhea, she has normal bleeding and she is started on oral steroids without any reoccurrence then it would be safe for her to go home. - : Currently being managed by OB and patient is doing well as is the baby. Charges/Coding Visit Charges Inpatient E&M: 76278 Init Hosp L3 01/12/251914 Cosigner Signature (if applicable): CC: Dr. Lan Simmons MD~ Signed [facility]04-26-2025 History and physical note Author Yoanna Vasques [facility] Note Date/Time January 12, 2025 9:5 8am [facility] Medical Records Department [address] [place] [address] H&P Exam - SIEBEL ADMINISTRATOR 01/12/25 0937 MR#: [id number] Acct: [id number] Name: SHERI SOUTH Rep #:[id number] : 1990 34 From: Yoanna Salazar DO PCP: Dr. Lan Simmons MD Status:R EG CLI [facility] H[facility] - General HPI Narrative SHERI SOUTH, is a 34 y/o @ [address] [facility] ER for an acute GIbleed secondary to Crohn's disease flair. She saw Yoanna Tejeda CNP in Dr. Galdamez's office. The patient denies loss of fluid, vaginal bleeding, or decreased movement. She was started on solumendrol 125 mg IV q 8 hrs by her and she states that since the first infusion her symptoms have started to clear up. She states that her bowel movements are not as bloody and her vasculitis cleared up. She just recently found out that she passed her glucola test and that her thyroid test was normal. She denies shortness of breath or chest pain. The information from her office visit yesterday with Yoanna Tejeda is as follows: - initial diagnosis was UC post colonoscopy at [facility] August 2023 with diarrhea, mucus, bleeding - started on Mesalamine labs at that time revealed a CRP of 18.74 and ESR labs at that time revealed a CRP of 18.74 and ESR 95 she was also anemic with a hemoglobin of 9.7. Imaging and a colonoscopy revealed mild pancolitis confirmed by bowel biopsy to be chronic active colitis with varying degrees of severity throughout the colon. She was treated with prednisone and mesalamine which initially alleviated her symptoms but her condition worsen when the prednisone was tapered. 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 A positive C. difficile test led to treatment with p.o. vancomycin however she was toxin negative. In February 2024 had a perineal necrotizing soft tissue infection and perthe op note this was actually an anal fistula or abscess which gave concern thather IBD was actually Crohn's and not an ulcerative colitis. - abscess and put in 3 drains - drains came out end of March, 1 of 3 abscess healed - crohn's diagnosed about 18 months ago - she is experiencing rectal bleeding that began a few weeks ago During an outpatient GI visit February 2024 patient had reported resolution of symptoms and was not having any diarrhea or rectal bleeding. She was not on anysteroids at that time. CRP was normal at 0.58 but her fecal calprotectin was elevated to 974. Her CBC also showed microcytic hyperchromic anemia consistent with ADRIEL with a hemoglobin of 6.1 and received a transfusion. She had a colonoscopy performed April 2024 which showed inflammation in the entire colon worst in the rectosigmoid, along with involvement of the terminal ileum. Biopsies showed chronic active enteritis in the TI and active chronic colitis inall segments of the colon. During outpatient GI visit 05/24/2024 she was having bloody diarrhea along with urgency and started on 2-month prednisone taper taper (starting at 40 mg) with improvement of symptoms and decision was made to start Humira. She is currentlygetting it through patient assistance program from the [employer] has community insurance through the [employer] and due to several delays ininitiating biologic therapy she was off of prednisone for 1 month before receiving her first induction dose of Humira on 08/30/2024 - started Humira August 2024 - she saw Dr. Mann during admission September 2024 She was admitted to [facility] on 09/27/2024 4 para 2 at 14 weeksgestation with a Crohn's flare presenting with nausea, vomiting and hematochezia. C. difficile and stool pathogen panels were unremarkable GI was consulted she received IV methylprednisone 20 mg every 8 hours 09/27 through 09/30 and transition to p.o. prednisone steroid taper on 10/01/2024. Throughout admission, patient's hematochezia and diarrheal symptoms greatly improved. On 09/28/2024 an OB ultrasound was performed which confirmed stable she was discharged home on an oral steroid taper with plans to resume Humira every 2weeks. Her prednisone taper started at 40 mg daily for 1 week and then decreaseby 5 mg every week. Her reports her Humira level during admission was around 6. Without antibodies. Completing prednisone taper early November. She presents today with complaints of bloody stools, loss of appetite, 20 pound weight loss, intermittent emesis with an overall improvement in diarrhea. 5 - she is now having blood in stool, loss of appetite - weight loss - diarrhea - emesis - weight is down 20lbs since beginning of - since starting Humira she has noted improvement in diarrhea - since starting Humira she reports having a gush of mucus, followed by stool - states bleeding now for a few weeks - reports having labs 1-2 weeks ago - HGB 8.6, was taking Ferrous sulfate 65mg QOD and now she is now taking Herbal Fe 325mg 1 BID and is supposed to be taking 2 BID - now only going 2-3x during the day and once at HS, this is an improvement frommultiple stools daily before starting Humira - reports she was last on prednisone September - sore in mouth and throat, diarrhea, vomiting - states this flare was different and felt worse than she does now - she i snow seeing a high risk clinic at [place] - and vitamin C - 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 possibly secondary to - seen in the office today with her - states their doctor told them it was okay for her to get on prednisone - brother business dedicated owner operator, 2x a day - leave a [phone] - Apprema phone patient to call with this number [facility] Medical History delivery delivered Abscess Blood transfusion, without reported diagnosis Home Medications ?Medication ?Instructions ?Recorded ?Last Taken ?Type adalimumab 40 mg/0.4 mL 40 mg subcut Q2W 01/11/25 History subcutaneous syringe kit (Humira(CF)) [id number] 18 mg-folic 1 tab PO DAILY 01/11 Unknown History 400 mcg-vit K1 120 mcg-herbal tablet Allergy/AdvReac Type Severity Reaction Status Date / Time mesalamine AdvReac Intermediate Diarrhea Verified 01/11/25 14:15 Family History no significant family his Social History household members: spouse and children Smoking Status: Never smoker alcohol intake: never substance use type: does not use hubert/lutheran: Mennonite NST FHR Rate Baby A Baseline: 140 Variability:: Moderate Accelerations:: 15 x 15 Decelerations:: None NST Reactive:: Yes FHR Category:: Category I Uterine Activity:: no contractions ROS Constitutional Constitutional: Denies change in weight, fatigue, fever(s), headache(s), poor appetite or weakness Eyes Eyes: Denies blurry vision, change in vision, seeing flashes or spots in vision ENT HEENT: Denies dizziness, headache(s), loss taste/smell or sore throat Cardiovascular Cardiovascular: Denies chest pain, dizziness, dyspnea, irregular heart rhythm, leg edema, palpitations, rapid heart rate or vomiting Respiratory/Chest Respiratory/Chest: Denies chest tightness, cough, dyspnea or breast pain Gastrointestinal Gastrointestinal: Denies abdominal pain, anorexia, constipation, cramping, diarrhea, hemorrhoids, vomiting or weight changes Genitourinary Genitourinary: Denies dysuria, flank pain, genital lesions, genital pain, urinary frequency or urinary urgency Musculoskeletal Musculoskeletal: Denies back pain, difficulty walking, joint pain, limited rangeof motion, muscle cramps or numbness Integumentary Integumentary: Denies lesions or unusual bruising Neurologic Neurologic: Denies abnormal movements, abnormal speech, dizziness, numbness, seizure-like activity or syncope Psychiatric Psychiatric: Denies anxiety, behavioral changes, change in appetite, change in libido, cognitive impairment, confusion, depression, difficulty concentrating, hallucinations or suicidal thoughts Endocrine Endocrinology: Denies excessive sweating, polydipsia or polyuria Hematologic/Lymphatic Hematologic/Lymphatic: Denies easy bleeding, easy bruising or lymphadenopathy Allergic/Immunologic Allergic/Immunologic: Denies itchy eyes, lip swelling, seasonal rhinorrhea, rhinitis, throat swelling, tongue swelling, eczemia, wheezing or asthma Vital Signs Vital Signs Vital Signs: 01/11/25 19:33 01/11/25 20:18 01/11/25 21:32 Temperature 97.2 F L Temperature Source Temporal Pulse Rate 102 H Respiratory Rate 15 Respiratory Effort Normal Non-Labored Respiratory Pattern Normal Blood Pressure 118/74 113/77 Blood Pressure Mean 88 89 BP Systolic BP Diastolic Pulse Ox 98 Oxygen Delivery Method Room Air 01/11/25 22:39 01/11/25 22:54 01/11/25 22:54 Temperature 97.2 F L Temperature Source Temporal Pulse Rate 77 Respiratory Rate 16 Respiratory Effort Respiratory Pattern Blood Pressure 113/77 121/68 H Blood Pressure Mean 89 BP Systolic 121 BP Diastolic 68 Pulse Ox 98 Oxygen Delivery Method 01/11/25 22:54 01/11/25 22:54 01/11/25 22:54 Temperature Temperature Source Pulse Rate 78 Respiratory Rate 14 Respiratory Effort Respiratory Pattern Blood Pressure Blood Pressure Mean BP Systolic BP Diastolic Pulse Ox 96 Oxygen Delivery Method 01/11/25 22:54 01/12/25 03:06 01/12/25 03:06 Temperature 98.4 F Temperature Source Pulse Rate 78 Respiratory Rate Respiratory Effort Respiratory Pattern Blood Pressure 115/62 Blood Pressure Mean BP Systolic 115 BP Diastolic 62 Pulse Ox Oxygen Delivery Method 01/12/25 03:06 01/12/25 07:48 01/12/25 07:48 Temperature Temperature Source Pulse Rate 78 Respiratory Rate 14 Respiratory Effort Respiratory Pattern Blood Pressure 117/68 Blood Pressure Mean BP Systolic 117 BP Diastolic 68 Pulse Ox Oxygen Delivery Method 01/12/25 07:48 01/12/25 07:49 01/12/25 07:49 Temperature Temperature Source Oral Pulse Rate Respiratory Rate 16 Respiratory Effort Respiratory Pattern Blood Pressure Blood Pressure Mean BP Systolic BP Diastolic Pulse Ox 96 Oxygen Delivery Method 01/12/25 07:49 Temperature 97.6 F L Temperature Source Pulse Rate Respiratory Rate Respiratory Effort Respiratory Pattern Blood Pressure Blood Pressure Mean BP Systolic BP Diastolic Pulse Ox Oxygen Delivery Method Physical Exam Const alert, oriented x3, no apparent distress and healthy appearing General Appearance: cooperative; Negative for anxious HEENT normocephalic Face and Sinus: normal facial exam Eyes EOMs intact bilaterally and no scleral icterus General Eye: normal appearance of both eyes Neck full ROM and supple Lymph Lymphatic: no lymphadenopathy noted Chest Chest: abnormal inspection of the chest Resp normal respiratory effort Effort and Inspection: able to speak in complete sentences Cardio regular rate GI soft to palpation and non-tender Inspection: gravid Palpation: soft; Negative for tender Back/Spine no CVA tenderness Extremity normal to inspection, full ROM and no clubbing, cyanosis or edema General Extremity: Negative for calf tenderness or edema Skin Lesions: no lesions Rashes: no rashes Psych mental status grossly normal Labs Labs Labs: Hct 27.1 % (37-47) L Hgb 8.5 g/dL (12.0-15.0) L Assessment & Plan (1) Acute GI bleeding: (2) 29 weeks gestation of : (3) Anemia: (4) and not yet delivered: (5) Crohn's disease: (6) Vasculitis: PLAN: Plan plan this am after talking with Dr. galdamez is to order a CMP, ESR, Retic count, Ferritin, Iron, LDH, Transferrin, amylase, and lipase. I will also be ordering atype and cross and transfusing 1 unit due to tachycardia in the ER with standingand drop in bp. -ok to order regular diet -repeat cbc after transfusion and if stable will consider transfer to the med surg floor with q shift NSTs. For now will keep on montor Charges/Coding Visit Charges Inpatient E&M: 46169 Init Hosp L3 01/12/25 0958 <Electronically signed by Yoanna Salazar DO> Cosigner Signature (if applicable): CC: Dr. Yoanna Salazar DO; Dr. Lan Simmons MD~ Signed [facility] Work Phone: 1(191) 504-380004-26-2025 History and physical note [facility] Medical Records Department [address] [place] [id number] H&P Exam - SIEBEL ADMINISTRATOR 01/12/25 0937 MR#: [id number] Acct: [id number] Name: SHERI SOUTH Rep #:[id number] : 1990 34 From: Yoanna Salazar DO PCP: Dr. Lan Simmons MD Status:R EG CLI Location: [id number] HPI - General HPI Narrative SHERI SOUTH, is a 34 y/o @ [address] [facility] ER for an acute GIbleed secondary to Crohn's disease flair. She saw Yoanna Tejeda CNP in Dr. Galdamez's office. The patient denies lossof fluid, vaginal bleeding, or decreased movement. She was started on solumendrol 125 mg IV q8 hrs by her and she states that since the first infusion her symptoms have started to clear up. She states that her bowel movements are not as bloody and her vasculitis cleared up. She just recentlyfound out that she passed her glucola test and that her thyroid test was normal. She denies shortness of breath or chest pain. The information from her office visit yesterday with Yoanna Tjeeda isas follows: - initial diagnosis was UC post colonoscopy at [facility] August 2023 with diarrhea, mucus, bleeding - started on Mesalamine labs at that time revealed a CRP of 18.74 and ESR labs at that time revealed a CRP of 18.74 and ESR95 she was also anemic with a hemoglobin of 9.7. Imaging and a colonoscopy revealed mild pancolitisconfirmed by bowel biopsy to be chronic active colitis with varying degrees of severity throughout the colon. She was treated with prednisone and mesalamine which initially alleviated her symptoms but her condition worsen when the prednisone was tapered. 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 A positive C. difficile test led to treatment with p.o. vancomycin however she was toxin negative. In February 2024 had a perineal necrotizing soft tissue infection and perthe op note this was actually an anal fistula or abscess which gave concern thather IBD was actually Crohn's and not an ulcerative colitis. - abscess and put in 3 drains - drains came out end of March, 1 of 3 abscess healed - crohn's diagnosed about 18 months ago - she is experiencing rectal bleeding that began a few weeks ago During an outpatient GI visit February 2024 patient had reported resolution of symptoms and was not having any diarrhea or rectal bleeding. She was not on anysteroids at that time. CRP was normal at 0.58but her fecal calprotectin was elevated to 974. Her CBC also showed microcytic hyperchromic anemia consistent with ADRIEL with a hemoglobin of 6.1 and received a transfusion. She had a colonoscopy performed April 2024 which showed inflammation in the entire colon worst in the rectosigmoid, along withinvolvement of the terminal ileum. Biopsies showed chronic active enteritis in the TI and active chronic colitis inall segments of the colon. During outpatient GI visit 05/24/2024 she was having bloody diarrhea along with urgency and started on 2-month prednisone taper taper (starting at 40 mg) with improvement of symptoms and decision was made to start Humira. She is currentlygetting it through patient assistance program from the pharmaceutical [employer] gertrude has community insurance through the [employer] and due to several delays ininitiating biologic therapy she was off of prednisone for 1 month before receiving her first induction dose of Humira on 08/30/2024 - started Humira August 2024 - she saw Dr. Mann during admission September 2024 She was admitted to [facility] on 09/27/2024 4 para 2 at 14 weeksgestation with a Crohn's flare presenting with nausea, vomiting and hematochezia. C. difficile and stool pathogen panels were unremarkable GI was consulted she received IV methylprednisone 20 mg every 8 hours 09/27 through 09/30 and transition to p.o. prednisone steroid taper on 10/01/2024. Throughout admission, patient'shematochezia and diarrheal symptoms greatly improved. On 09/28/2024 an OB ultrasound was performed which confirmed stable she was discharged home on an oral steroid taper with plans to resume Humira every 2weeks. Her prednisone taper started at 40 mg daily for 1 week and then decreaseby 5 mg every week. Her reports her Humira level during admission was around 6. Without antibodies. Completing prednisone taper early November. She presents today with complaints of bloody stools, loss of appetite, 20 pound weight loss, intermittent emesis with an overall improvement in diarrhea. 5 - she is now having blood in stool, loss of appetite - weight loss - diarrhea - emesis - weight is down 20lbs since beginning of - since starting Humira she has noted improvement in diarrhea - since starting Humira she reports having a gush of mucus, followed by stool - states bleeding now for a few weeks - reports having labs 1-2 weeks ago - HGB 8.6, was taking Ferrous sulfate 65mg QOD and now she is now taking Herbal Fe 325mg 1 BID and is supposed to be taking 2 BID - now only going 2-3x during the day and once at HS, this is an improvement frommultiple stools daily before starting Humira - reports she was last on prednisone September - sore in mouth and throat, diarrhea, vomiting - states this flare was different and felt worse than she does now - she i snow seeing a high risk clinic at [place] - and vitamin C - 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 possibly secondary to - seen in the office today with her - states their doctor told them it was okay for her to get on prednisone - brother business dedicated owner operator, 2x a day - leave a [phone] - Community phone patient to call with this number [facility] Medical History delivery delivered Abscess Blood transfusion, without reported diagnosis Home Medications ?Medication ?Instructions ?Recorded ?Last Taken ?Type adalimumab 40 mg/0.4 mL 40 mg subcut Q2W 01/11/25 History subcutaneous syringe kit (Humira(CF)) [id number] 18 mg-folic 1 tab PO DAILY 01/11 Unknown History 400 mcg-vit K1 120 mcg-herbal tablet Allergy/AdvReac Type Severity Reaction Status Date / Time mesalamine AdvReac Intermediate Diarrhea Verified 01/11/25 14:15 Family History no significant family his Social History household members: spouse and children Smoking Status: Never smoker alcohol intake: never substance use type: does not use hubert/lutheran: Mennonite NST FHR Rate Baby A Baseline: 140 Variability:: Moderate Accelerations:: 15 x 15 Decelerations:: None NST Reactive:: Yes FHR Category:: Category I Uterine Activity:: no contractions ROS Constitutional Constitutional: Denies change in weight, fatigue, fever(s), headache(s), poor appetite or weakness Eyes Eyes: Denies blurry vision, change in vision, seeing flashes or spots in vision ENT HEENT: Denies dizziness, headache(s), loss taste/smell or sore throat Cardiovascular Cardiovascular: Denies chest pain, dizziness, dyspnea, irregular heart rhythm, leg edema, palpitations, rapid heart rate or vomiting Respiratory/Chest Respiratory/Chest: Denies chest tightness, cough, dyspnea or breast pain Gastrointestinal Gastrointestinal: Denies abdominal pain, anorexia, constipation, cramping, diarrhea, hemorrhoids, vomiting or weight changes Genitourinary Genitourinary: Denies dysuria, flank pain, genital lesions, genital pain, urinary frequency or urinary urgency Musculoskeletal Musculoskeletal: Denies back pain, difficulty walking, joint pain, limited rangeof motion, muscle cramps or numbness Integumentary Integumentary: Denies lesions or unusual bruising Neurologic Neurologic: Denies abnormal movements, abnormal speech, dizziness, numbness, seizure-like activity or syncope Psychiatric Psychiatric: Denies anxiety, behavioral changes, change in appetite, change in libido, cognitive impairment, confusion, depression, difficulty concentrating, hallucinations or suicidal thoughts Endocrine Endocrinology: Denies excessive sweating, polydipsia or polyuria Hematologic/Lymphatic Hematologic/Lymphatic: Denies easy bleeding, easy bruising or lymphadenopathy Allergic/Immunologic Allergic/Immunologic: Denies itchy eyes, lip swelling, seasonal rhinorrhea, rhinitis, throat swelling, tongue swelling, eczemia, wheezing or asthma Vital Signs Vital Signs Vital Signs: 01/11/25 19:33 01/11/25 20:18 01/11/25 21:32 Temperature 97.2 F L Temperature Source Temporal Pulse Rate 102 H Respiratory Rate 15 Respiratory Effort Normal Non-Labored Respiratory Pattern Normal Blood Pressure 118/74 113/77 Blood Pressure Mean 88 89 BP Systolic BP Diastolic Pulse Ox 98 Oxygen Delivery Method Room Air 01/11/25 22:39 01/11/25 22:54 01/11/25 22:54 Temperature 97.2 F L Temperature Source Temporal Pulse Rate 77 Respiratory Rate 16 Respiratory Effort Respiratory Pattern Blood Pressure 113/77 121/68 H Blood Pressure Mean 89 BP Systolic 121 BP Diastolic 68 Pulse Ox 98 Oxygen Delivery Method 01/11/25 22:54 01/11/25 22:54 01/11/25 22:54 Temperature Temperature Source Pulse Rate 78 Respiratory Rate 14 Respiratory Effort Respiratory Pattern Blood Pressure Blood Pressure Mean BP Systolic BP Diastolic Pulse Ox 96 Oxygen Delivery Method 01/11/25 22:54 01/12/25 03:06 01/12/25 03:06 Temperature 98.4 F Temperature Source Pulse Rate 78 Respiratory Rate Respiratory Effort Respiratory Pattern Blood Pressure 115/62 Blood Pressure Mean BP Systolic 115 BP Diastolic 62 Pulse Ox Oxygen Delivery Method 01/12/25 03:06 01/12/25 07:48 01/12/25 07:48 Temperature Temperature Source Pulse Rate 78 Respiratory Rate 14 Respiratory Effort Respiratory Pattern Blood Pressure 117/68 Blood Pressure Mean BP Systolic 117 BP Diastolic 68 Pulse Ox Oxygen Delivery Method 01/12/25 07:48 01/12/25 07:49 01/12/25 07:49 Temperature Temperature Source Oral Pulse Rate Respiratory Rate 16 Respiratory Effort Respiratory Pattern Blood Pressure Blood Pressure Mean BP Systolic BP Diastolic Pulse Ox 96 Oxygen Delivery Method 01/12/25 07:49 Temperature 97.6 F L Temperature Source Pulse Rate Respiratory Rate Respiratory Effort Respiratory Pattern Blood Pressure Blood Pressure Mean BP Systolic BP Diastolic Pulse Ox Oxygen Delivery Method Physical Exam Const alert, oriented x3, no apparent distress and healthy appearing General Appearance: cooperative; Negative for anxious HEENT normocephalic Face and Sinus: normal facial exam Eyes EOMs intact bilaterally and no scleral icterus General Eye: normal appearance of both eyes Neck full ROM and supple Lymph Lymphatic: no lymphadenopathy noted Chest Chest: abnormal inspection of the chest Resp normal respiratory effort Effort and Inspection: able to speak in complete sentences Cardio regular rate GI soft to palpation and non-tender Inspection: gravid Palpation: soft; Negative for tender Back/Spine no CVA tenderness Extremity normal to inspection, full ROM and no clubbing, cyanosis or edema General Extremity: Negative for calf tenderness or edema Skin Lesions: no lesions Rashes: no rashes Psych mental status grossly normal Labs Labs Labs: Hct 27.1 % (37-47) L Hgb 8.5 g/dL (12.0-15.0) L Assessment & Plan (1) Acute GI bleeding: (2) 29 weeks gestation of : (3) Anemia: (4) and not yet delivered: (5) Crohn's disease: (6) Vasculitis: PLAN: Plan plan this am after talking with Dr. friend is to order a CMP, ESR, Retic count, Ferritin, Iron, LDH, Transferrin, amylase, and lipase. I will also be ordering atype and cross and transfusing 1 unit due to tachycardia in the ER with standingand drop in bp. -ok to order regular diet -repeat cbc after transfusion and if stable will consider transfer to the med surg floor with q shift NSTs. For now will keep on [facility] Charges/Coding Visit Charges Inpatient E&M: 58785 Init Hosp L3 01/12/25 0958 Cosigner Signature (if applicable): CC: Dr. Yoanna Salazar DO; Dr. Lan Simmons MD~ Signed [facility]04-26-2025 Discharge summary Author Tony Mendoza [facility] Note Date/Time January 11, 2025 10: 28pm [facility] Medical Records Department [address] [place] [address] Emergency Department Summary 01/11/25 MR#: [id number] Acct: [id number] Name: SHERI SOUTH [place] Rep #:[id number] : 1990 34 From: Tony Mendoza MD PCP: Dr. Lan Simmons MD Status:R EG ER Location: ED HPI History of Present Illness Chief Complaint: Abn Labs Narrative Narrative: 34-year-old female, G4, P2 at approximately 29 weeks gestation presents with abnormal labs. She has history of Crohn disease and takes Humira. She has an SIEBEL ADMINISTRATOR in [place] and plans on delivering at [facility]. She presents the direction of the gastroenterology CHARLIE who evaluated her today. Patient's states that with her Crohn disease, the SIEBEL ADMINISTRATOR recommended a electrical and instrumentation mechanic closer than the one they usually see at [facility]. Patient relates history that she has had bloody stool and cramping with bowel movements for the last few weeks. She was seen by gastroenterology today and was noted to have a hemoglobin of 8.6 with CRP of 103. Alk phos is elevated to 84 and it was recommended that she be admitted to the hospital for Solu-Medrol 125 mg every 8 hours. Patient denies any vaginal bleeding or cramping. She and her also relate history that it was suggested that with her Crohn disease and that she is on Humira that she be evaluated by highway commissioner. They had an appointment with someone at [facility] who advised them that there is no need for her to deliver at [place] and that she has not high risk and that she could deliver in [place]. She presents today for admission for IV steroids and control of her Crohn's flare. [facility] Medical History delivery delivered Abscess Blood transfusion, without reported diagnosis Home Medications ?Medication ?Instructions ?Recorded ?Last Taken ?Type adalimumab 40 mg/0.4 mL 40 mg subcut Q2W 01/11/25 Un known History subcutaneous syringe kit (Humira(CF)) [id number] 18 mg-folic tab PO 01/11/25 Unkn own History 400 mcg-vit K1 120 mcg-herbal tablet Allergy/AdvReac Type Severity Reaction Status Date / Time mesalamine AdvReac Intermediate Diarrhea Verified 01/11/25 14:15 Family History no significant family his Social History household members: spouse and children Smoking Status: Never smoker alcohol intake: never substance use type: does not use hubert/lutheran: Mennonite ROS ROS ED ROS Narrative Review of systems positive for blood in stool for a few weeks. Abdominal cramping only when having a bowel movement. No vaginal bleeding, no pelvic painor vaginal cramping. No fevers or chills, no nausea or vomiting. EXAM Physical Exam Narrative Exam Narrative: Afebrile. Vital signs noted. Nontoxic-appearing. Mild tachycardia 102 bpm. Lungs clear to auscultation bilaterally. Abdomen is soft and nontender with gravid uterus. No pedal edema. Neurological examination nonfocal and normal lysing. Const Vital Signs: 01/11/25 19:33 01/11/25 20:18 01/11/25 21:32 Temperature 97.2 F L Temperature Source Temporal Pulse Rate 102 H Respiratory Rate 15 Respiratory Effort Normal Non-Labored Respiratory Pattern Normal Blood Pressure 118/74 113/77 Blood Pressure Mean 88 89 Pulse Ox 98 Oxygen Delivery Method Room Air MDM MDM MDM Narrative Medical decision making narrative: Differential diagnosis includes but not limited to Crohn's flare versus GI bleeding from AV malformation. I have low suspicion for diverticulitis based onher history and physical. I reviewed the gastroenterology note from today. I also reviewed the laboratory work from today as well. Today in review of her laboratory work she has a white count of 9.1, hemoglobin 8.5 down slightly from 8.6 this afternoon, platelet count elevated at 475. Electrolyte panel is significant for glucose of 119 with alk phos elevated at 271, lipase normal at 20. I reviewed her CRP and it is elevated at 203. She was administered Solu-Medrol 125 mg intravenously. heart rate 140 and obtained by RN. I discussed patient with Dr. Wheeler with S[employer] ADMINISTRATOR. She will admit the patientas long as there is GI able to follow this weekend. As the patient is established with gastroenterology here as she was seen today and sent in by the nurse practitioner, I discussed patient with Dr. Galdamez who states that he will be able to see the patient tomorrow for consultation. He did not want any othermedications added to treat her Crohn disease versus ulcerative colitis. I rediscussed the patient with Dr. Wheeler for admission to labor and delivery for monitoring. Disposition is admit in stable condition. History & Record Review Discussion w/independent historian: Patient and Family Additional record(s) reviewed:: Prior labs Lab Data Attestation: I reviewed the patient's lab results. Labs: Laboratory Results - last 24 hr 01/11/25 20:15 WBC 9.1 RBC 3.05 L Hgb 8.5 L Hct 27.1 L MCV 88.9 MCH 27.9 MCHC 31.4 L RDW Std Deviation 48.0 H RDW Coeff of Shira 15.0 H Plt Count 475 H MPV 7.7 Immature Gran % (Auto) 1.100 H Neut % (Auto) 56.2 Lymph % (Auto) 32.6 Sequoyah % (Auto) 5.0 Eos % (Auto) 4.8 Baso % (Auto) 0.3 Absolute Neuts (auto) 5.1 Absolute Lymphs (auto) 2.97 Nucleated RBC % 0 Sodium 136 Potassium 3.7 Chloride 100 Carbon Dioxide 22.9 Anion Gap 13 BUN 6 Creatinine 0.49 L Est GFR (MDRD) Non-Af 127 BUN/Creatinine Ratio 12.2 Glucose 119 H Calcium 8.9 Total Bilirubin 0.44 AST 29 ALT 22 Alkaline Phosphatase 271 H Total Protein 8.2 Albumin 2.7 L Globulin 5.5 H Albumin/Globulin Ratio 0.5 L Lipase 20 Management Discussion w/another healthcare provider: Housekeeper (Dr. Wheeler, SIEBEL ADMINISTRATOR andDr. Galdamez, gastroenterology.) Discharge Plan Dx/Rx/DC Orders Clinical Impression: 29 weeks gestation of , Crohn's disease, and not yet delivered, Anemia Disposition Disposition: Acute Care Hospital [facility] What to do if you have Problems For any increased pain, shortness of breath, bleeding, nausea or vomiting, chestpain, or any unexpected problems, contact your Primary Care Provider. Call [facility] ([phone]) or report to the closest Emergency Room. Call 911 if necessary. 01/11/252227 <Electronically signed by Tony Mendoza MD> Cosigner Signature (if applicable): CC: Dr. Lan Simmons MD ~ Signed [facility] Work Phone: 1(621) 910-237204-25-[address] [facility] Medical Records Department [address] [place] [address] Emergency Department Summary 01/11/25 MR#: [id number] Acct: [id number] Name: SHERI SOUTH Rep #:[id number] : 1990 34 From: Tony Mendoza MD PCP: Dr. Lan Simmons MD Status:R EG ER Location: ED HPI History of Present Illness Chief Complaint: Abn Labs Narrative Narrative: 34-year-old female, G4, P2 at approximately 29 weeks gestation presents with abnormal labs. She hashistory of Crohn disease and takes Humira. She has an SIEBEL ADMINISTRATOR in [place] and plans [facility]. She presents the direction of the gastroenterology CHARLIE who evaluated her today. Patient's states that with her Crohn disease, the SIEBEL ADMINISTRATOR recommended a electrical and instrumentation mechanic closer than the one they usually see at [facility]. Patient relates history thatrichard has had bloody stool and cramping with bowel movements for the last few weeks. She was seen by gastroenterology today and was noted to have a hemoglobin of 8.6 with CRP of 103. Alk phos is elevated to 84 and it was recommended that she be admitted to the hospital for Solu-Medrol 125 mg every 8 hours. Patient denies any vaginal bleeding or cramping. She and her also relate history thatit was suggested that with her Crohn disease and that she is on Humira that she be evaluated by highway commissioner. They had an appointment with someone at [facility] who advised them that there is no need for her to deliver at [place] and that she has not high risk and that she could deliver in [place]. She presents today for admission for IV steroids and control of her Crohn's flare. [facility] Medical History delivery delivered Abscess Blood transfusion, without reported diagnosis Home Medications ?Medication ?Instructions ?Recorded ?Last Taken ?Type adalimumab 40 mg/0.4 mL 40 mg subcut Q2W 01/11/25 Un known History subcutaneous syringe kit (Humira(CF)) [id number]-[id number]-[id number] 18 mg-folic tab PO 01/11/25 Unkn own History 400 mcg-vit K1 120 mcg-herbal tablet Allergy/AdvReac Type Severity Reaction Status Date / Time mesalamine AdvReac Intermediate Diarrhea Verified 01/11/25 14:15 Family History no significant family his Social History household members: spouse and children Smoking Status: Never smoker alcohol intake: never substance use type: does not use hubert/lutheran: Mennonite ROS ROS ED ROS Narrative Review of systems positive for blood in stool for a few weeks. Abdominal cramping only when having a bowel movement. No vaginal bleeding, no pelvic painor vaginal cramping. No fevers or chills, no nausea or vomiting. EXAM Physical Exam Narrative Exam Narrative: Afebrile. Vital signs noted. Nontoxic-appearing. Mild tachycardia 102 bpm. Lungs clear to auscultation bilaterally. Abdomen is soft and nontender with gravid uterus. No pedal edema. Neurological examination nonfocal and normal lysing. Const Vital Signs: 01/11/25 19:33 01/11/25 20:18 01/11/25 21:32 Temperature 97.2 F L Temperature Source Temporal Pulse Rate 102 H Respiratory Rate 15 Respiratory Effort Normal Non-Labored Respiratory Pattern Normal Blood Pressure 118/74 113/77 Blood Pressure Mean 88 89 Pulse Ox 98 Oxygen Delivery Method Room Air MDM MDM MDM Narrative Medical decision making narrative: Differential diagnosis includes but not limited to Crohn's flare versus GI bleeding from AV malformation. I have low suspicion for diverticulitis based onher history and physical. I reviewed the gastroenterology note from today. I also reviewed the laboratory work from today as well. Today in review of her laboratory work she has a white count of 9.1, hemoglobin 8.5 down slightly from 8.6 this afternoon, platelet count elevated at 475. Electrolyte panel is significant for glucose of 119 with alk phos elevated at 271, lipase normal at 20. I reviewed her CRP and it is elevated at 203. She was administered Solu- Medrol 125 mg intravenously. heart rate 140 and obtained by RN. I discussed patient with Dr. Wheeler with SIEBEL ADMINISTRATOR. She will admit the patientas long as there is GI able to follow this weekend. As the patient is established with gastroenterology here as she was seen today and sent in by the nurse practitioner, I discussed patient with Dr. Galdamez who states that he will be able to see the patient tomorrow for consultation. He did not want any othermedicationsadded to treat her Crohn disease versus ulcerative colitis. I rediscussed the patient with Dr. Wheeler for admission to labor and delivery for monitoring. Disposition is admit in stable condition. History & Record Review Discussion w/independent historian: Patient and Family Additional record(s) reviewed:: Prior labs Lab Data Attestation: I reviewed the patient's lab results. Labs: Laboratory Results - last 24 hr 01/11/25 20:15 WBC 9.1 RBC 3.05 L Hgb 8.5 L Hct 27.1 L MCV 88.9 MCH 27.9 MCHC 31.4 L RDW Std Deviation 48.0 H RDW Coeff of Sihra 15.0 H Plt Count 475 H MPV 7.7 Immature Gran % (Auto) 1.100 H Neut % (Auto) 56.2 Lymph % (Auto) 32.6 Sequoyah % (Auto) 5.0 Eos % (Auto) 4.8 Baso % (Auto) 0.3 Absolute Neuts (auto) 5.1 Absolute Lymphs (auto) 2.97 Nucleated RBC % 0 Sodium 136 Potassium 3.7 Chloride 100 Carbon Dioxide 22.9 Anion Gap 13 BUN 6 Creatinine 0.49 L Est GFR (MDRD) Non-Af 127 BUN/Creatinine Ratio 12.2 Glucose 119 H Calcium 8.9 Total Bilirubin 0.44 AST 29 ALT 22 Alkaline Phosphatase 271 H Total Protein 8.2 Albumin 2.7 L Globulin 5.5 H Albumin/Globulin Ratio 0.5 L Lipase 20 Management Discussion w/another healthcare provider: Housekeeper (Dr. Wheeler, SIEBEL ADMINISTRATOR andDr. Galdamez, gastroenterology.) Discharge Plan Dx/Rx/DC Orders Clinical Impression: 29 weeks gestation of , Crohn's disease, and not yet delivered, Anemia Disposition Disposition: Acute Care Hospital [facility] What to do if you have Problems For any increased pain, shortness of breath, bleeding, nausea or vomiting, chestpain, or any unexpected problems, contact your Primary Care Provider. Call [facility] ([phone]) or report tothe closest Emergency Room. Call 911 if necessary. 01/11/252227 Cosigner Signature (if applicable): CC: Dr. Lan Simmons MD ~ Signed [facility]04-25-2025 Evaluation note* Diagnosis Onset Date Resolution Status Admit Date Anemia acute January 11 1:55pm Crohn's disease acute December 1:55pm and not yet delivered acute January 11, 2025 1:55pm Vasculitis acute January 11 1:55pm [facility] Work Phone: 1(164) 538-795804-25-2025 Evaluation note* Diagnosis Onset Date Resolution Status Admit Date Anemia acute January 11 1:55pm Crohn's disease acute December 1:55pm and not yet delivered acute January 11, 2025 1:55pm Vasculitis acute January 11 1:55pm 29 weeks gestation of acut e January 14, 2025 8:03am Acute GI bleeding acute December 192024 8:03am Anemia acute January 14 8:03am Crohn's disease acute December 8:03am and not yet delivered acute January 14, 2025 8:03am Vasculitis acute January 14 8:03am [facility] Work Phone: 1(318) 214-498104-25-2025 Evaluation note* Diagnosis Onset Date Resolution Status Admit Date Anemia acute January 11 1:55pm Crohn's disease acute December 1:55pm and not yet delivered acute January 11, 2025 1:55pm Vasculitis acute January 11 1:55pm Acute GI bleeding acute December 192024 8:03am Anemia acute January 14 8:03am Crohn's disease acute December 8:03am and not yet delivered acute January 14, 2025 8:03am Vasculitis acute January 14 8:03am 29 weeks gestation of inac tive January 14, 2025 8:03am Anemia acute January 31, 2025 11:00am Crohn's disease acute January 31, 2025 11:00am Immunocompromised acute January 11:00am and not yet delivered acute January 31, 2025 11:00am [facility] Work Phone: 1([phone]) 981-644104-25-2025 Evaluation note* Diagnosis Onset Date Resolution Status Admit Date Anemia acute January 11 1:55pm Crohn's disease acute December 1:55pm and not yet delivered acute January 11, 2025 1:55pm Vasculitis acute January 11 1:55pm Acute GI bleeding acute December 192024 8:03am Anemia acute January 14 8:03am Crohn's disease acute December 8:03am and not yet delivered acute January 14, 2025 8:03am Vasculitis acute January 14 8:03am 29 weeks gestation of inac tive January 14, 2025 8:03am Anemia acute January 31, 2025 11:00am Crohn's disease acute January 31, 2025 11:00am Immunocompromised acute January 11:00am and not yet delivered acute January 31, 2025 11:00am Anemia acute February 18, 2025 10:46am Crohn's disease acute February 18, 2025 10:46am Immunocompromised acute February 10:46am and not yet delivered acute February 18, 2025 10:46am [facility] Work Phone: [phone] 372-993004-25-2025 Evaluation note* Diagnosis Onset Date Resolution Status Admit Date Anemia acute January 11 1:55pm Crohn's disease acute December 1:55pm and not yet delivered acute January 11, 2025 1:55pm Vasculitis acute January 11 1:55pm Acute GI bleeding acute December 192024 8:03am Anemia acute January 14 8:03am Crohn's disease acute December 8:03am and not yet delivered acute January 14, 2025 8:03am Vasculitis acute January 14 8:03am 29 weeks gestation of inac tive January 14, 2025 8:03am Anemia acute January 31, 2025 11:00am Crohn's disease acute January 31, 2025 11:00am Immunocompromised acute January 11:00am and not yet delivered acute January 31, 2025 11:00am Anemia acute February 18, 2025 10:46am Crohn's disease acute February 18, 2025 10:46am Immunocompromised acute February 10:46am and not yet delivered acute February 18, 2025 10:46am Crohn's disease acute February 2:02pm [facility] Work Phone: [phone] 893-930204-25-2025 Discharge summary Author Tony Mendoza [facility] Note Date/Time January 11, 2025 10: 28pm [facility] Medical Records Department [address] [place] [address] Emergency Department Summary 01/11/25 MR#: [id number] Acct: [id number] Name: SHERI SOUTH Rep #:[id number] : 1990 34 From: Tony Mendoza MD PCP: Dr. Lan Simmons MD Status:R EG ER Location: ED HPI History of Present Illness Chief Complaint: Abn Labs Narrative Narrative: 34-year-old female, G4, P2 at approximately 29 weeks gestation presents with abnormal labs. She has history of Crohn disease and takes Humira. She has an SIEBEL ADMINISTRATOR in [place] and plans on delivering at [facility]. She presents the direction of the gastroenterology CHARLIE who evaluated her today. Patient's states that with her Crohn disease, the SIEBEL ADMINISTRATOR recommended a electrical and instrumentation mechanic closer than the one they usually see at [facility] in [place]. Patient relates history that she has had bloody stool and cramping with bowel movements for the last few weeks. She was seen by gastroenterology today and was noted to have a hemoglobin of 8.6 with CRP of 103. Alk phos is elevated to 84 and it was recommended that she be admitted to the hospital for Solu-Medrol 125 mg every 8 hours. Patient denies any vaginal bleeding or cramping. She and her also relate history that it was suggested that with her Crohn disease and that she is on Humira that she be evaluated by highway commissioner. They had an appointment with someone at [facility] who advised them that there is no need for her to deliver at [place] and that she has not high risk and that she could deliver in [place]. She presents today for admission for IV steroids and control of her Crohn's flare. [facility] Medical History delivery delivered Abscess Blood transfusion, without reported diagnosis Home Medications ?Medication ?Instructions ?Recorded ?Last Taken ?Type adalimumab 40 mg/0.4 mL 40 mg subcut Q2W 01/11/25 Un known History subcutaneous syringe kit (Humira(CF)) [id number] 18 mg-folic tab PO 01/11/25 Unkn own History 400 mcg-vit K1 120 mcg-herbal tablet Allergy/AdvReac Type Severity Reaction Status Date / Time mesalamine AdvReac Intermediate Diarrhea Verified 01/11/25 14:15 Family History no significant family his Social History household members: spouse and children Smoking Status: Never smoker alcohol intake: never substance use type: does not use hubert/lutheran: Mennonite ROS ROS ED ROS Narrative Review of systems positive for blood in stool for a few weeks. Abdominal cramping only when having a bowel movement. No vaginal bleeding, no pelvic painor vaginal cramping. No fevers or chills, no nausea or vomiting. EXAM Physical Exam Narrative Exam Narrative: Afebrile. Vital signs noted. Nontoxic-appearing. Mild tachycardia 102 bpm. Lungs clear to auscultation bilaterally. Abdomen is soft and nontender with gravid uterus. No pedal edema. Neurological examination nonfocal and normal lysing. Const Vital Signs: 01/11/25 19:33 01/11/25 20:18 01/11/25 21:32 Temperature 97.2 F L Temperature Source Temporal Pulse Rate 102 H Respiratory Rate 15 Respiratory Effort Normal Non-Labored Respiratory Pattern Normal Blood Pressure 118/74 113/77 Blood Pressure Mean 88 89 Pulse Ox 98 Oxygen Delivery Method Room Air MDM MDM MDM Narrative Medical decision making narrative: Differential diagnosis includes but not limited to Crohn's flare versus GI bleeding from AV malformation. I have low suspicion for diverticulitis based onher history and physical. I reviewed the gastroenterology note from today. I also reviewed the laboratory work from today as well. Today in review of her laboratory work she has a white count of 9.1, hemoglobin 8.5 down slightly from 8.6 this afternoon, platelet count elevated at 475. Electrolyte panel is significant for glucose of 119 with alk phos elevated at 271, lipase normal at 20. I reviewed her CRP and it is elevated at 203. She was administered Solu-Medrol 125 mg intravenously. heart rate 140 and obtained by RN. I discussed patient with Dr. Wheeler with [employer]. She will admit the patientas long as there is GI able to follow this weekend. As the patient is established with gastroenterology here as she was seen today and sent in by the nurse practitioner, I discussed patient with Dr. Galdamez who states that he will be able to see the patient tomorrow for consultation. He did not want any othermedications added to treat her Crohn disease versus ulcerative colitis. I rediscussed the patient with Dr. Wheeler for admission to labor and delivery for monitoring. Disposition is admit in stable condition. History & Record Review Discussion w/independent historian: Patient and Family Additional record(s) reviewed:: Prior labs Lab Data Attestation: I reviewed the patient's lab results. Labs: Laboratory Results - last 24 hr 01/11/25 20:15 WBC 9.1 RBC 3.05 L Hgb 8.5 L Hct 27.1 L MCV 88.9 MCH 27.9 MCHC 31.4 L RDW Std Deviation 48.0 H RDW Coeff of Shira 15.0 H Plt Count 475 H MPV 7.7 Immature Gran % (Auto) 1.100 H Neut % (Auto) 56.2 Lymph % (Auto) 32.6 Sequoyah % (Auto) 5.0 Eos % (Auto) 4.8 Baso % (Auto) 0.3 Absolute Neuts (auto) 5.1 Absolute Lymphs (auto) 2.97 Nucleated RBC % 0 Sodium 136 Potassium 3.7 Chloride 100 Carbon Dioxide 22.9 Anion Gap 13 BUN 6 Creatinine 0.49 L Est GFR (MDRD) Non-Af 127 BUN/Creatinine Ratio 12.2 Glucose 119 H Calcium 8.9 Total Bilirubin 0.44 AST 29 ALT 22 Alkaline Phosphatase 271 H Total Protein 8.2 Albumin 2.7 L Globulin 5.5 H Albumin/Globulin Ratio 0.5 L Lipase 20 Management Discussion w/another healthcare provider: Housekeeper (Dr. Wheeler, SIEBEL ADMINISTRATOR andDrAbhilash Galadmez, gastroenterology.) Discharge Plan Dx/Rx/DC Orders Clinical Impression: 29 weeks gestation of , Crohn's disease, and not yet delivered, Anemia Disposition Disposition: Acute Care Hospital [facility] What to do if you have Problems For any increased pain, shortness of breath, bleeding, nausea or vomiting, chestpain, or any unexpected problems, contact your Primary Care Provider. Call [facility] ([phone]) or report to the closest Emergency Room. Call 911 if necessary. 01/11/257 <Electronically signed by Tony Mendoza MD> Cosigner Signature (if applicable): CC: Dr. Lan Simmons MD ~ Signed [facility] Work Phone: 1(919) 301-558003-13-2025 Instructions* Patient Instructions* Georges Marin MD MPH - 11/29/2024 1:00 PM EDT Thank you for coming to see us in the GI clinic today. I am glad to hear that you're feeling much better and that your diarrhea and other symptoms have gotten better. It is reassuring that your johanna-anal fistula is also not draining as much. For now, we want you to continue taking the Humira every 2 weeks. Please keep me posted if you start having more bloody diarrhea, or if you fever, have more drainage, etc. We recommend a for you when you are ready to give . Also, we will plan on starting you on a 2nd medication called Imuran or Azathioprine once you have given . Take care! documented in this [facility] Work Phone: [phone]) 443-383301-14-2025 Hospital course Narrative* Kim Montelongo MD - 10/02/2024 2:22 PM EST Discharge Summary Admission Date: 09/27/2024 Discharge Date: 10/02/2024 Discharge Diagnosis Crohn disease of upper gastrointestinal tract Hospital Course Sheri South is a 34 y.o. at 14.4wga who was admitted to the antepartum service for a Chron's flare after presenting with nausea, vomiting and hematochezia. C. Diff and stool pathogen panels were unremarkable. GI was consulted and patient received IV methylprednisolone 20mg q8hrs (09/27- 09/30)and transitioned to a PO prednisone steroid taper on 10/01. Throughout admission, patient's hematochezia and diarrheal symptoms greatly improved. On 09/28, an OB US was performed which confirmed dating. FHT were obtained on admission and day of discharge. By HD#5, patient was stable for discharge home. She was discharged home on an oral steroid taper with plans to resume Humira, per GI recs. Patient will follow-up with GI in clinic outpatient. An appointment has additionally been requested for an MFM appointment on patient's behalf. Patient was discharged home in stable condition. Pertinent Physical Exam At Time of Discharge General: AAOx3, No acute distress Cardiovascular: Warm and well perfused Respiratory: Normal respiratory effort Abdominal: Soft, gravid, non-tender, no rebound or guarding, no palpable contractions Extremities: Warm, well perfused FHT: + on admission Last Vitals: Temp Pulse Resp BP MAP Pulse Ox 36.1 C (97 F) 103 16 113/74 87 (!) 95 % Discharge Meds Your medication list START taking these medications Instructions Last Dose Given Next Dose Due cyclobenzaprine 10 mg tablet Commonly known as: Flexeril Take 1 tablet (10 mg) by mouth 2 times a day as needed for muscle spasms. loperamide 2 mg capsule Commonly known as: Imodium Take 2 capsules (4 mg) by mouth 3 times a day as needed for diarrhea. predniSONE 5 mg tablet Commonly known as: Deltasone Take 7 tablets (35 mg) by mouth once daily for 7 days. predniSONE 10 mg tablet Commonly known as: Deltasone Take 3 tablets (30 mg) by mouth once daily for 7 days. predniSONE 5 mg tablet Commonly known as: Deltasone Take 5 tablets (25 mg) by mouth once daily for 7 days. predniSONE 20 mg tablet Commonly known as: Deltasone Take 1 tablet (20 mg) by mouth once daily for 7 days. predniSONE 5 mg tablet Commonly known as: Deltasone Take 3 tablets (15 mg) by mouth once daily for 7 days. predniSONE 10 mg tablet Commonly known as: Deltasone Take 1 tablet (10 mg) by mouth once daily for 7 days. predniSONE 5 mg tablet Commonly known as: Deltasone Take 1 tablet (5 mg) by mouth once daily for 7 days. predniSONE 20 mg tablet Commonly known as: Deltasone Start taking on: October 03, 2024 Take 2 tablets (40 mg) by mouth once daily for 5 days. CHANGE how you take these medications Instructions Last Dose Given Next Dose Due acetaminophen 325 mg tablet Commonly known as: Tylenol What changed: when to take this reasons to take this Take 2 tablets (650 mg) by mouth every 6 hours if needed for mild pain (1 - 3). CONTINUE taking these medications Instructions Last Dose Given Next Dose Due Michael(CF) Pen [id number] 80 mg/0.8 mL pen injector kit pen-injector Generic drug: adalimumab adalimumab (Humira) dose instructions: On day 1, inject 160 mg under the skin. On day 15, inject 80mg under skin. Change sites each time. take 160 mg (2 Pens) subcutaneous on day 0 then take 80 mg subcutaneous on day 15 adalimumab 40 mg/0.4 mL pen injector kit pen-injector Commonly known as: Humira Pen Inject 1 Pen (40 mg) under the skin every 14 (fourteen) days. STOP taking these medications budesonide 2 mg/actuation foam Commonly known as: Uceris Where to Get Your Medications These medications were sent to [facility] [place] [id number] acetaminophen 325 mg tablet cyclobenzaprine 10 mg tablet loperamide 2 mg capsule predniSONE 10 mg tablet predniSONE 10 mg tablet predniSONE 20 mg tablet predniSONE 20 mg tablet predniSONE 5 mg tablet predniSONE 5 mg tablet predniSONE 5 mg tablet predniSONE 5 mg tablet Complications Requiring Follow-Up None Test Results Pending At Discharge Pending Labs No current pending labs. Outpatient Follow-Up Future Appointments Date Time Provider Department Center 12/27/2024 2:00 PM Georges Marin MD MPH [id number] Academic Seen & d/w Jorge Hammer. Cecile Montelongo MD PGY-II, Obstetrics & Gynecology [facility] Cosigned by Derrell Tristan MD at 10/02/2024 2:36 PM EST documented in this [facility] Work Phone: [phone]) 895-451301-14-2025 Plan of care note* Care Plan - Gi Whitney RN - 10/02/2024 1:18 PM EST The patient's goals for the shift include Rest The clinical goals for the shift include decreased diarrhea and blood in stool VS and assessments stable. Pt discharged after seen by GI attending. [facility]01-14-2025 Miscellaneous Notes* Care Plan - Gi Whitney RN - 10/02/2024 1:18 PM EST The patient's goals for the shift include Rest The clinical goals for the shift include decreased diarrhea and blood in stool VS and assessments stable. Pt discharged after seen by GI attending. * Care Plan - Gi Whitney RN - 10/01/2024 5:34 PM EST The patient's goals for the shift include decreased diarrhea The clinical goals for the shift include decreased diarrhea and no blood Pt reports decrease in frequency of stools, more formed stools, and less blood in stools. * Hospital Course - Lakisha Castillo MD - 10/01/2024 2:47 PM EST 34 y.o who is 14.## wga by LMP c/w 14.0 wk US with PMH Crohn's disease c/b perianal fistulaon Humira who is HD### for Crohn's flare. Patient was admitted on 09/27 for nausea, vomiting and hematochezia c/f Crohn's flare. Admission labs notable for elevated ESR (113) and CRP (22.16) , Calprotectin >3000. Patient has h/o C diff, repeat C diff was negative during admission. Stool pathogen unremarkable. Humira level pending on day of discharge. GI was consulted and patient received IV methylprednisolone 20mg q8hrs (09/27- 09/30) and transitioned to a PO prednisone steroid taper on 10/01. OB US performed during admission and confirmed dating of 14.0 wga on 09/28. Patient had significantly improving hematochezia by HD #5 and was stable for discharge home on HD##. FHT noted on admission and day of discharge. Patient to continue PO prednisone taper with the following regimen at discharge with plan to resume Humira per GI recs. See notes for details. Pt follow up with outpatient GI and OBGYN provider as scheduled. * Care Plan - Tiffanie Sprague RN - 10/01/2024 6:20 AM EST The patient's goals for the shift include to get some sleep and for my diarrhea to improve The clinical goals for the shift include patient will have decreased episodes of diarrhea with no blood in stool overnight Patient did well overnight and may be discharged home later today depending on how she does on the PO prednisone. Vitals stable and patient has not complained of any pain. Patient had some diarrhea last night but it did not have any blood in it which patient was happy about. Patient to start PO prednisone this morning. Sleeping at this time. Will continue to monitor for any changes. * Care Plan - Areli Barajas RN - 09/30/2024 3:41 PM EST The patient's goals for the shift include Rest The clinical goals for the shift include Pt will have decreased episodes of diarrhea this shift Pt states she feels much better today. Last bm w/semi-formed stool was around 0500 this morning. Ptdenies any pain or cramping. Has been tolerating a regular diet without n/v. Continues on iv solumedrol as ordered. Per GI note plan is to possibly tire changer to oral steroids Tuesday. Pt has been ambulating in the halls and painted a craft in her room this shift. * Care Plan - Theresa Victoria RN - 09/29/2024 6:36 PM EST The patient's goals for the shift include to get some rest The clinical goals for the shift include no bloody stool Patient remained stable this shift. Patient has not reported bloody stool since this AM. Keeping upwith IV prednisone and patient is feeling better. Patients needs addressed at this time. * Care Plan - Gi Whitney RN - 09/28/2024 6:04 PM EST The patient's goals for the shift include no bloody stool The clinical goals for the shift include no bloody stool VS and assessments stable. Pt continues to have bloody liquid stools. * Care Plan - Valentine Harrell RN - 09/27/2024 1:56 PM EST Problem: Antepartum Goal: Maintain as long as maternal and/or condition is stable Outcome: Progressing Goal: Avoid/minimize constipation Outcome: Progressing Goal: No decrease in circulation/VTE Outcome: Progressing Goal: FHR remains reassuring Outcome: Progressing Goal: Minimize anxiety/maximize coping Outcome: Progressing Problem: Safety - Adult Goal: Free from fall injury Outcome: Progressing Problem: Discharge Planning Goal: Discharge to home or other facility with appropriate resources Outcome: Progressing Problem: Chronic Conditions and Co-morbidities Goal: Patient's chronic conditions and co-morbidity symptoms are monitored and maintained or improved Outcome: Progressing The patient's goals for the shift include get medication to help my flare up. VSS and pt. Has no cramps or VB.I sent stool for c-diff.Pt. has had 2 liquid,bloody stools today.Per M pt. May eat food.Stable. documented in this [facility] Work Phone: [phone]) 747-757001-14-2025 History of Present illness Narrative* Kim Montelongo MD - 10/02/2024 6:24 AM EST ANTEPARTUM PROGRESS NOTE 10/02/2024, 6:24 AM SUBJECTIVE: Transitioned to PO steroids yesterday. Had 3 bowel movements between the time of 11pm - 3am, but none since then. No blood in stool, only present when wiping. Much improved compared to admission. Denies cramping/contractions, VB, or LOF. OBJECTIVE: BP 104/59 (BP Location: Left arm, Patient Position: Lying) Pulse 89 Temp 36.2 C (97.2 F) (Temporal) Resp 16 Ht 1.6 m (5' 3) Wt 95.3 kg (210 lb) LMP 03/22/2024 (Approximate) SpO2 (!) 95% BMI 37.20 kg/m Temp Min: 36.2 C (97.2 F) Max: 36.3 C (97.3 F) Pulse Min: 78 Max: 89 BP Min: 104/59 Max: 120/78 General: AAOx3, No acute distress Cardiovascular: Warm and well perfused Respiratory: Normal respiratory effort Abdominal: Soft, gravid, non-tender, no rebound or guarding, no palpable contractions Extremities: Warm, well perfused FHT: + on admission Labs: Results for orders placed or performed during the hospital encounter of 09/27/24 (from the past 24 hours) Basic metabolic panel Result Value Ref Range Glucose 98 74 - 99 mg/dL Sodium 133 (L) 136 - 145 mmol/L Potassium 4.0 3.5 - 5.3 mmol/L Chloride 98 98 - 107 mmol/L Bicarbonate 27 21 - 32 mmol/L Anion Gap 12 10 - 20 mmol/L Urea Nitrogen 7 6 - 23 mg/dL Creatinine 0.37 (L) 0.50 - 1.05 mg/dL eGFR >90 >60 mL/min/1.73m*2 Calcium 9.0 8.6 - 10.6 mg/dL Magnesium Result Value Ref Range Magnesium 1.80 1.60 - 2.40 mg/dL CBC and Auto Differential Result Value Ref Range WBC 9.0 4.4 - 11.3 x10*3/uL nRBC 0.0 0.0 - 0.0 /100 WBCs RBC 3.89 (L) 4.00 - 5.20 x10*6/uL Hemoglobin 9.5 (L) 12.0 - 16.0 g/dL Hematocrit 31.8 (L) 36.0 - 46.0 % MCV 82 80 - 100 fL MCH 24.4 (L) 26.0 - 34.0 pg MCHC 29.9 (L) 32.0 - 36.0 g/dL RDW 13.8 11.5 - 14.5 % Platelets 366 150 - 450 x10*3/uL Neutrophils % 65.4 40.0 - 80.0 % Immature Granulocytes %, Automated 1.4 (H) 0.0 - 0.9 % Lymphocytes % 23.4 13.0 - 44.0 % Monocytes % 9.4 2.0 - 10.0 % Eosinophils % 0.2 0.0 - 6.0 % Basophils % 0.2 0.0 - 2.0 % Neutrophils Absolute 5.87 1.20 - 7.70 x10*3/uL Immature Granulocytes Absolute, Automated 0.13 0.00 - 0.70 x10*3/uL Lymphocytes Absolute 2.11 1.20 - 4.80 x10*3/uL Monocytes Absolute 0.85 0.10 - 1.00 x10*3/uL Eosinophils Absolute 0.02 0.00 - 0.70 x10*3/uL Basophils Absolute 0.02 0.00 - 0.10 x10*3/uL Basic metabolic panel Result Value Ref Range Glucose 97 74 - 99 mg/dL Sodium 132 (L) 136 - 145 mmol/L Potassium 3.9 3.5 - 5.3 mmol/L Chloride 98 98 - 107 mmol/L Bicarbonate 26 21 - 32 mmol/L Anion Gap 12 10 - 20 mmol/L Urea Nitrogen 6 6 - 23 mg/dL Creatinine 0.36 (L) 0.50 - 1.05 mg/dL eGFR >90 >60 mL/min/1.73m*2 Calcium 8.8 8.6 - 10.6 mg/dL ASSESSMENT AND PLAN: Sheri South is a 34 y.o. at approximately 14.4wga (LMP 06/22) admitted for Crohn's flare. Crohn's Flare, Perianal fistula Patient with history of Chron's, diagnosed in May 2024. Started on Mesalamine with worsening symptoms, therefore discontinued. In February 2024, patient had perineal necrotizing soft tissue infection, concerning for an anal fissure abscess. 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 Biopsies showed chronic active enteritis in the TI and chronic active colitis in all segments of the colon. Patient now with johanna-anal draining fistulae. - Patient started on Humira 08/30/2024, has since taken 3 injections with no improvement - Now with 2wk history or worsening Chron's symptoms - Afebrile, HDS, WBC wnl - Elevated inflammatory markers: ESR 113 and CRP to 22.16 on admission; calprotectin pending. Repeat CRP 8.59 (09/30) - GI consulted & following. Per Recommendations: IV methylprednisolone 20mg discontinued 09/30 and transitioned to PO steroid taper 10/01 per GI recs;plan to continue Humira outpatient - C diff negative. Stool pathogen neg - Stool calprotectin >3000 - Continue supportive management including PRN Tylenol, Flexeril, Imodium. - Daily lytes ordered in setting of diarrhea. Replete as needed status: - (+) FHT on admission. Will obtain at discharge or PRN - s/p SSUS on 09/28 with dating confirmed; EFW 93g, AC 69% Dispo: possible dc today pending GI recs Pt to be seen and discussed with MFM Attending, Dr. Tristan. Titi Montelongo MD PGY-II, Obstetrics & Gynecology [facility] Assessment & Plan Crohn disease of upper gastrointestinal tract Cosigned by Derrell Tristan MD at 10/02/2024 10:10 AM EST Associated attestation - Derrell Tristan MD - 10/02/2024 10:10 AM EST I saw and evaluated the patient. I personally obtained the cordova and critical portions of the historyand physical exam or was physically present for cordova and critical portions performed by the resident/fellow. I reviewed the resident/fellow's documentation and discussed the patient with the resident/f jamil. I agree with the resident/fellow's medical decision making as documented in the note with the exception/addition of the following: Stable for dc home on PO steroid taper per GI. Will try to arrange follow up around the time of heranatomy scan for a single visit as patient lives very far away. Derrell Tristan MD Maternal Medicine Director of Intervention * Yoanna Do MD - 10/01/2024 6:26 PM EST [facility] [place] CONSULT FOLLOW-UP Reason For Consult Crohn's flare, hematochezia SUBJECTIVE Had significantly decreased blood on her stools ovn and this morning; now only a pink smear on toilet paper when wiping. She is continuing to have loose stools and had 2Bms during the day and 2 smallBMs in the middle of the night. She does state that she wakes up in the night to have Bms about twotimes at baseline. EXAM Last Recorded Vitals Blood pressure 120/78, pulse 86, temperature 36.2 C (97.2 F), temperature source Temporal, resp. rate 16, height 1.6 m (5' 3), weight 95.3 kg (210 lb), last menstrual period 03/22/2024, SpO2 97%. No intake or output data in the 24 hours ending 10/01/241826 Physical Exam General: well-developed, well-nourished, no acute distress, AAOx3 HEENT: EOM intact CV: regular rate and rhythm Pulm: normal respiratory effort, clear to auscultation bilaterally Abd: soft, nontender, nondistended Extremities: warm, no LE edema Neuro: moves all extremities equally, CN II - XII grossly intact Psych: normal mood and affect Skin: warm, dry, intact OBJECTIVE Medications Current Facility-Administered Medications: acetaminophen (Tylenol) tablet 975 mg, 975 mg, oral, q6h PRN, Kim Montelongo MD bisacodyl (Dulcolax) suppository 10 mg, 10 mg, rectal, Daily PRN, Kim Montelongo MD cyclobenzaprine (Flexeril) tablet 10 mg, 10 mg, oral, TID PRN, Kim Montelongo MD hydrALAZINE (Apresoline) injection 5 mg, 5 mg, intravenous, Once PRN, Kim Montelongo MD iron sucrose (Venofer) injection 200 mg, 200 mg, intravenous, Once, Kim Montelongo MD labetaloL (Normodyne,Trandate) injection 20 mg, 20 mg, intravenous, Once PRN, Kim Montelongo MD lidocaine (Xylocaine) 10 mg/mL (1 %) injection 0.5 mL, 0.5 mL, subcutaneous, Once PRN, Kim Montelongo MD loperamide (Imodium) capsule 4 mg, 4 mg, oral, TID PRN, Kim Montelongo MD magnesium hydroxide (Milk of Magnesia) 400 mg/5 mL suspension 10 mL, 10 mL, oral, q24h PRN, Lolly Montelongo MD magnesium oxide (Mag-Ox) tablet 400 mg, 400 mg, oral, Daily, Kim Montelongo MD, 400 mg at 10/01/24 1133 metoclopramide (Reglan) tablet 10 mg, 10 mg, oral, q6h PRN OR [DISCONTINUED] metoclopramide (Reglan) injection 10 mg, 10 mg, intravenous, q6h PRN, Kim Montelongo MD NIFEdipine (Procardia) capsule 10 mg, 10 mg, oral, Once PRN, Kim Montelongo MD ondansetron (Zofran) tablet 4 mg, 4 mg, oral, q6h PRN OR [DISCONTINUED] ondansetron (Zofran) injection 4 mg, 4 mg, intravenous, q6h PRN, Kim Montelongo MD polyethylene glycol (Glycolax, Miralax) packet 17 g, 17 g, oral, Daily PRN, Ari Max MD polyethylene glycol (Glycolax, Miralax) packet 17 g, 17 g, oral, BID PRN, Kim Montelongo MD predniSONE (Deltasone) tablet 40 mg, 40 mg, oral, Daily, Kim Montelongo MD, 40 mg at 10/01/24 0651 vitamin (iron-folic) tablet 1 tablet, 1 tablet, oral, Daily, Kim Montelongo MD, 1 tablet at 10/01/24 0840 psyllium (Metamucil) 3.4 gram packet 1 packet, 1 packet, oral, Daily PRN, Kim Montelongo MD simethicone (Mylicon) chewable tablet 80 mg, 80 mg, oral, 4x daily PRN, Kim Montelongo MD Labs Labs: CBC RFP Lab Results Component Value Date WBC 9.0 10/01/2024 HGB 9.5 (L) 10/01/2024 HCT 31.8 (L) 10/01/2024 MCV 82 10/01/2024 PLT 366 10/01/2024 NEUTROABS 5.87 10/01/2024 Lab Results Component Value Date NA 133 (L) 10/01/2024 NA 132 (L) 10/01/2024 K 4.0 10/01/2024 K 3.9 10/01/2024 CL 98 10/01/2024 CL 98 10/01/2024 CO2 27 10/01/2024 CO2 26 10/01/2024 BUN 7 10/01/2024 BUN 6 10/01/2024 CREATININE 0.37 (L) 10/01/2024 CREATININE 0.36 (L) 10/01/2024 Lab Results Component Value Date MG 1.80 10/01/2024 PHOS 3.6 02/24/2024 CALCIUM 9.0 10/01/2024 CALCIUM 8.8 10/01/2024 ALBUMIN 3.0 (L) 09/27/2024 Hepatic Function ABG/VBG Lab Results Component Value Date ALT 13 09/27/2024 AST 14 09/27/2024 ALKPHOS 100 09/27/2024 Lab Results Component Value Date BILITOT 0.3 09/27/2024 BILIDIR 0.0 02/21/2024 Lab Results Component Value Date PROTIME 19.4 (H) 02/22/2024 APTT 31 02/22/2024 INR 1.7 (H) 02/22/2024 No results found for: NONUHFIRE, LACTATE Imaging CT ENTEROGRAPHY WITH IV CONTRAST; 06/13/2024 IMPRESSION: 1. Unremarkable small bowel including terminal ileal with intraluminal fecal material noted in the ascending colon. Bowel wall thickening, mucosal enhancement and hyperemia seen extending from proximal transverse colon all the way up to distal rectum, likely representing ulcerative colitis. Tissue diagnosis recommended. No evidence of bowel obstruction or stricture identified at current juncture. Comparison with outside prior study recommended. 2. Focal area of wall thickening of the anterior bladder wall with associated perivesicular fat stranding. Given the pancolitis described in previous colonoscopy reports, unable to completely exclude prior fistulization of the sigmoid colon with the bladder in this area. Comparison with outside prior imaging is strongly recommended. Additional considerations: Inflamed urachal remnant versus cystitis, correlate with urinalysis. 3. Right-sided nonobstructing nephrolithiasis. 4. Cholelithiasis without cholecystitis. 5. 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 However as per clinical need further evaluation with the serum IgG 4 level recommended. 6. Findings favored to represent postsurgical changes related to incision and drainage of the perianal region/left perineum. No loculated fluid collection. GI Procedures Cscope 04/26/24: Impression Moderate erythematous, granular mucosa with loss of vascular pattern in the terminal ileum; performed cold forceps biopsy to rule out IBD Erythematous, granular mucosa with loss of vascular pattern; performed cold forceps biopsies Severe granular mucosa with loss of vascular pattern in the descending colon; performed cold forceps biopsy to rule out IBD Severe erythematous, granular, ulcerated mucosa with loss of vascular pattern in the rectosigmoid; performed cold forceps biopsy to rule out IBD Findings Moderate, generalized erythematous and granular mucosa with loss of vascular pattern in the terminal ileum; performed cold forceps biopsy to rule out IBD. Erythematous without ulcerations. Generalized erythematous and granular mucosa with loss of vascular pattern in the ascending colon; performed cold forceps biopsy to rule out IBD Generalized erythematous and granular mucosa with loss of vascular pattern in the transverse colon;performed cold forceps biopsy Severe, generalized granular mucosa with loss of vascular pattern that did not appear erythematous in the descending colon; performed cold forceps biopsy to rule out IBD Severe, generalized erythematous, granular and ulcerated mucosa with loss of vascular pattern in the rectosigmoid; performed cold forceps biopsy to rule out IBD. Linear ulcerations. Overall and in the view of perianal abscesses this is consistent with Crohns disease. FINAL DIAGNOSIS A. TERMINAL ILEUM BIOPSY: --CHRONIC ACTIVE ENTERITIS --GRANULOMA OR PYLORIC GLAND METAPLASIA ARE NOT IDENTIFIED B. COLON, ASCENDING COLON BIOPSY: --CHRONIC ACTIVE COLITIS --GRANULOMA OR DYSPLASIA ARE NOT IDENTIFIED C. COLON, TRANSVERSE COLON BIOPSY: --CHRONIC ACTIVE COLITIS WITH CRYPTITIS AND CRYPT ABSCESSES --GRANULOMA OR DYSPLASIA ARE NOT IDENTIFIED D. COLON, DESCENDING COLON BIOPSY: --CHRONIC ACTIVE COLITIS WITH CRYPTITIS AND CRYPT ABSCESSES --GRANULOMA OR DYSPLASIA ARE NOT IDENTIFIED E. COLON, SIGMOID COLON BIOPSY: --CHRONIC ACTIVE COLITIS --GRANULOMA OR DYSPLASIA ARE NOT IDENTIFIED F. RECTUM BIOPSY: --CHRONIC ACTIVE COLITIS --GRANULOMA OR DYSPLASIA ARE NOT IDENTIFIED ASSESSMENT / PLAN ASSESSMENT/PLAN: Sheri South is a 34 y.o. female with a past medical history of Klebsiella UTI, LLE cellulitis, and recent admission for necrotizing soft tissue infection of perineum s/p I&D, C. Diff infection (technically colonization as toxin was negative) and recent diagnosis of Crohn's disease and [id number] weeks who presented on 09/26/24 for worsening hematochezia. GI is consulted for Crohn's flare and hematochezia. Pt's worsening hematochezia and diarrhea in addition to EIMs (oral ulcers, erythema nodosum) are concerning for Chron's disease not well controlled with her current therapy. It is possible the pt mayjust need additional control of her initial inflammation while Humira is beginning to take effect. It is also possible that she may need a higher dosing of her Humira (weekly dosing instead of every two weeks). If pt does not respond to steroids, she may need change of therapy to inflixmab (to be started inpatient), this is not ideal as infusions are logistically difficult for the patient. Patient improvement of symptoms while on IV steroids. Plan to switch to oral steroids today and monitor symptoms while on PO. #hematochezia #Crohns ::Cdiff negative (09/27) :: Stool PCR panel pending :: CRP (09/30): 8 (22 on admission) Recommendations: -Switch from IV steroids to PO prednisone 40mg daily today. If patient continues to have adequate control of symptoms after switching to PO steroids, will plan to discharge with PO prednisone taper as follows: 40mg daily for one week, and then decreasing by 5mg every week -Humira level pending. Depending on these levels, pt may need increase in her Humira maintenance dosing -Can resume next Humira dose when pt returns home Patient was seen and discussed with Dr. Whitney . Gastroenterology will continue to follow. During weekday hours of 7am-5pm please do not hesitate to contact me on [employer] Chat or page [phone], ifthere are any further questions between the weekday hours of 7am-5pm. After hours, on weekends, and on holidays, [place] [phone]. Thank you. Cosigned by Bartolome Whitney MD at 10/01/2024 8:04 PM EST Associated attestation - Bartolome Whitney MD - 10/01/2024 8:04 PM EST I saw and evaluated the patient. I personally obtained the cordova critical the cordova and critical portions of the history and physical exam. I reviewed the fellow's/resident's documentation and discussed the patient with the resident. I agree with the resident's medical decision making as documented in the resident's note. * Kim Montelongo MD - 10/01/2024 7:10 AM EST ANTEPARTUM PROGRESS NOTE 10/01/2024, 7:10 AM SUBJECTIVE: Patient reports slight increase in bowel movements overnight, though still less than on admission. Continues to reports less blood in stool. Feels ready to try PO steroids today. Denies cramping/contractions, VB, or LOF. reports decreasing frequency of bowel movements; now with less blood and becoming more formed. Overall feels better compared to initial presentation. OBJECTIVE: BP 115/76 Pulse 98 Temp 37.4 C (99.3 F) (Temporal) Resp 18 Ht 1.6 m (5' 3) Wt 95.3 kg (210 lb) LMP 03/22/2024 (Approximate) SpO2 96% BMI 37.20 kg/m Temp Min: 36.2 C (97.2 F) Max: 37.4 C (99.3 F) Pulse Min: 68 Max: 98 BP Min: 111/73 Max: 131/84 General: AAOx3, No acute distress Cardiovascular: Warm and well perfused Respiratory: Normal respiratory effort Abdominal: Soft, gravid, non-tender, no rebound or guarding, no palpable contractions Extremities: Warm, well perfused FHT: + on admission Labs: Results for orders placed or performed during the hospital encounter of 09/27/24 (from the past 24 hours) Basic metabolic panel Result Value Ref Range Glucose 116 (H) 74 - 99 mg/dL Sodium 136 136 - 145 mmol/L Potassium 4.1 3.5 - 5.3 mmol/L Chloride 101 98 - 107 mmol/L Bicarbonate 26 21 - 32 mmol/L Anion Gap 13 10 - 20 mmol/L Urea Nitrogen 5 (L) 6 - 23 mg/dL Creatinine 0.42 (L) 0.50 - 1.05 mg/dL eGFR >90 >60 mL/min/1.73m*2 Calcium 9.0 8.6 - 10.6 mg/dL Magnesium Result Value Ref Range Magnesium 1.97 1.60 - 2.40 mg/dL CBC and Auto Differential Result Value Ref Range WBC 8.7 4.4 - 11.3 x10*3/uL nRBC 0.0 0.0 - 0.0 /100 WBCs RBC 3.90 (L) 4.00 - 5.20 x10*6/uL Hemoglobin 9.6 (L) 12.0 - 16.0 g/dL Hematocrit 31.5 (L) 36.0 - 46.0 % MCV 81 80 - 100 fL MCH 24.6 (L) 26.0 - 34.0 pg MCHC 30.5 (L) 32.0 - 36.0 g/dL RDW 13.6 11.5 - 14.5 % Platelets 360 150 - 450 x10*3/uL Neutrophils % 65.5 40.0 - 80.0 % Immature Granulocytes %, Automated 1.6 (H) 0.0 - 0.9 % Lymphocytes % 24.2 13.0 - 44.0 % Monocytes % 8.4 2.0 - 10.0 % Eosinophils % 0.1 0.0 - 6.0 % Basophils % 0.2 0.0 - 2.0 % Neutrophils Absolute 5.66 1.20 - 7.70 x10*3/uL Immature Granulocytes Absolute, Automated 0.14 0.00 - 0.70 x10*3/uL Lymphocytes Absolute 2.09 1.20 - 4.80 x10*3/uL Monocytes Absolute 0.73 0.10 - 1.00 x10*3/uL Eosinophils Absolute 0.01 0.00 - 0.70 x10*3/uL Basophils Absolute 0.02 0.00 - 0.10 x10*3/uL C-Reactive Protein Result Value Ref Range C-Reactive Protein 8.59 (H) <1.00 mg/dL ASSESSMENT AND PLAN: Sheri South is a 34 y.o. at approximately 14.3wga (LMP 06/22) admitted for Crohn's flare. Crohn's Flare, Perianal fistula Patient with history of Chron's, diagnosed in May 2024. Started on Mesalamine with worsening symptoms, therefore discontinued. In February 2024, patient had perineal necrotizing soft tissue infection, concerning for an anal fissure abscess. 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 Biopsies showed chronic active enteritis in the TI and chronic active colitis in all segments of the colon. Patient now with johanna-anal draining fistulae. - Patient started on Humira 08/30/2024, has since taken 3 injections with no improvement - Now with 2wk history or worsening Chron's symptoms - Afebrile, HDS, WBC wnl - Elevated inflammatory markers: ESR 113 and CRP to 22.16 on admission; calprotectin pending. Repeat CRP 8.59 (09/30) - GI consulted & following. Per Recommendations: Discontinue IV methylprednisolone 20mg. Plan to transition to PO steroid taper today per GI recs and continue Humira outpatient - C diff negative. Stool pathogen neg - Stool calprotectin >3000 - Continue supportive management including PRN Tylenol, Flexeril, Imodium. - Daily lytes ordered in setting of diarrhea. Replete as needed status: - (+) FHT on admission. Will obtain at discharge or PRN - s/p SSUS on 09/28 with dating confirmed; EFW 93g, AC 69% Dispo: pending GI recs Pt seen and discussed with MFM Attending, Dr. Tristan. Titi Montelongo MD PGY-II, Obstetrics & Gynecology [facility] Assessment & Plan Crohn disease of upper gastrointestinal tract Cosigned by Derrell Tristan MD at 10/01/2024 10:17 AM EST Associated attestation - Derrell Tristan MD - 10/01/2024 10:17 AM EST I saw and evaluated the patient. I personally obtained the cordova and critical portions of the historyand physical exam or was physically present for cordova and critical portions performed by the resident/fellow. I reviewed the resident/fellow's documentation and discussed the patient with the resident/shaila negron. I agree with the resident/fellow's medical decision making as documented in the note. Derrell Tristan MD Maternal Medicine Director of Intervention * Yoanna Do MD - 09/30/2024 4:41 PM EST [facility] [place] CONSULT FOLLOW-UP Reason For Consult Crohn's flare, hematochezia SUBJECTIVE Pt much improved today. Had 3 Bms in the past 24 hours. Only had to wakeup one to have BM. Decreased blood seen in stool. EXAM Last Recorded Vitals Blood pressure 131/84, pulse 81, temperature 36.2 C (97.2 F), temperature source Temporal, resp. rate 16, height 1.6 m (5' 3), weight 95.3 kg (210 lb), last menstrual period 03/22/2024, SpO2 97%. No intake or output data in the 24 hours ending 09/30/24 1642 Physical Exam General: well-developed, well-nourished, no acute distress, AAOx3 HEENT: EOM intact CV: regular rate and rhythm Pulm: normal respiratory effort, clear to auscultation bilaterally Abd: soft, nontender, nondistended Extremities: warm, no LE edema, less prominent areas of tender erythema approx 1in in diameter located on bilateral shins and calves Neuro: moves all extremities equally, CN II - XII grossly intact Psych: normal mood and affect Skin: warm, dry, intact OBJECTIVE Medications Current Facility-Administered Medications: acetaminophen (Tylenol) tablet 975 mg, 975 mg, oral, q6h PRN, Kim Montelongo MD bisacodyl (Dulcolax) suppository 10 mg, 10 mg, rectal, Daily PRN, Kim Montelongo MD cyclobenzaprine (Flexeril) tablet 10 mg, 10 mg, oral, TID PRN, Kim Montelongo MD hydrALAZINE (Apresoline) injection 5 mg, 5 mg, intravenous, Once PRN, Kim Montelongo MD labetaloL (Normodyne,Trandate) injection 20 mg, 20 mg, intravenous, Once PRN, Kim Montelongo MD lidocaine (Xylocaine) 10 mg/mL (1 %) injection 0.5 mL, 0.5 mL, subcutaneous, Once PRN, Kim Montelongo MD loperamide (Imodium) capsule 4 mg, 4 mg, oral, TID PRN, Kim Montelongo MD magnesium hydroxide (Milk of Magnesia) 400 mg/5 mL suspension 10 mL, 10 mL, oral, q24h PRN, Lolly Montelongo MD metoclopramide (Reglan) tablet 10 mg, 10 mg, oral, q6h PRN OR [DISCONTINUED] metoclopramide (Reglan) injection 10 mg, 10 mg, intravenous, q6h PRN, Kim Montelongo MD NIFEdipine (Procardia) capsule 10 mg, 10 mg, oral, Once PRN, Kim Montelongo MD ondansetron (Zofran) tablet 4 mg, 4 mg, oral, q6h PRN OR [DISCONTINUED] ondansetron (Zofran) injection 4 mg, 4 mg, intravenous, q6h PRN, Kim Montelongo MD polyethylene glycol (Glycolax, Miralax) packet 17 g, 17 g, oral, Daily PRN, Ari Max MD polyethylene glycol (Glycolax, Miralax) packet 17 g, 17 g, oral, BID PRN, Kim Montelongo MD vitamin (iron-folic) tablet 1 tablet, 1 tablet, oral, Daily, Kim Montelongo MD, 1 tablet at 09/30/24 0842 psyllium (Metamucil) 3.4 gram packet 1 packet, 1 packet, oral, Daily PRN, Kim Montelongo MD simethicone (Mylicon) chewable tablet 80 mg, 80 mg, oral, 4x daily PRN, Kim Montelongo MD Labs Labs: CBC RFP Lab Results Component Value Date WBC 8.7 09/30/2024 HGB 9.6 (L) 09/30/2024 HCT 31.5 (L) 09/30/2024 MCV 81 09/30/2024 PLT 360 09/30/2024 NEUTROABS 5.66 09/30/2024 Lab Results Component Value Date NA 136 09/30/2024 K 4.1 09/30/2024 CL 101 09/30/2024 CO2 26 09/30/2024 BUN 5 (L) 09/30/2024 CREATININE 0.42 (L) 09/30/2024 Lab Results Component Value Date MG 1.97 09/30/2024 PHOS 3.6 02/24/2024 CALCIUM 9.0 09/30/2024 ALBUMIN 3.0 (L) 09/27/2024 Hepatic Function ABG/VBG Lab Results Component Value Date ALT 13 09/27/2024 AST 14 09/27/2024 ALKPHOS 100 09/27/2024 Lab Results Component Value Date BILITOT 0.3 09/27/2024 BILIDIR 0.0 02/21/2024 Lab Results Component Value Date PROTIME 19.4 (H) 02/22/2024 APTT 31 02/22/2024 INR 1.7 (H) 02/22/2024 No results found for: NONUHFIRE, LACTATE Imaging CT ENTEROGRAPHY WITH IV CONTRAST; 06/13/2024 IMPRESSION: 1. Unremarkable small bowel including terminal ileal with intraluminal fecal material noted in the ascending colon. Bowel wall thickening, mucosal enhancement and hyperemia seen extending from proximal transverse colon all the way up to distal rectum, likely representing ulcerative colitis. Tissue diagnosis recommended. No evidence of bowel obstruction or stricture identified at current juncture. Comparison with outside prior study recommended. 2. Focal area of wall thickening of the anterior bladder wall with associated perivesicular fat stranding. Given the pancolitis described in previous colonoscopy reports, unable to completely exclude prior fistulization of the sigmoid colon with the bladder in this area. Comparison with outside prior imaging is strongly recommended. Additional considerations: Inflamed urachal remnant versus cystitis, correlate with urinalysis. 3. Right-sided nonobstructing nephrolithiasis. 4. Cholelithiasis without cholecystitis. 5. 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 However as per clinical need further evaluation with the serum IgG 4 level recommended. 6. Findings favored to represent postsurgical changes related to incision and drainage of the perianal region/left perineum. No loculated fluid collection. GI Procedures Cscope 04/26/24: Impression Moderate erythematous, granular mucosa with loss of vascular pattern in the terminal ileum; performed cold forceps biopsy to rule out IBD Erythematous, granular mucosa with loss of vascular pattern; performed cold forceps biopsies Severe granular mucosa with loss of vascular pattern in the descending colon; performed cold forceps biopsy to rule out IBD Severe erythematous, granular, ulcerated mucosa with loss of vascular pattern in the rectosigmoid; performed cold forceps biopsy to rule out IBD Findings Moderate, generalized erythematous and granular mucosa with loss of vascular pattern in the terminal ileum; performed cold forceps biopsy to rule out IBD. Erythematous without ulcerations. Generalized erythematous and granular mucosa with loss of vascular pattern in the ascending colon; performed cold forceps biopsy to rule out IBD Generalized erythematous and granular mucosa with loss of vascular pattern in the transverse colon;performed cold forceps biopsy Severe, generalized granular mucosa with loss of vascular pattern that did not appear erythematous in the descending colon; performed cold forceps biopsy to rule out IBD Severe, generalized erythematous, granular and ulcerated mucosa with loss of vascular pattern in the rectosigmoid; performed cold forceps biopsy to rule out IBD. Linear ulcerations. Overall and in the view of perianal abscesses this is consistent with Crohns disease. FINAL DIAGNOSIS A. TERMINAL ILEUM BIOPSY: --CHRONIC ACTIVE ENTERITIS --GRANULOMA OR PYLORIC GLAND METAPLASIA ARE NOT IDENTIFIED B. COLON, ASCENDING COLON BIOPSY: --CHRONIC ACTIVE COLITIS --GRANULOMA OR DYSPLASIA ARE NOT IDENTIFIED C. COLON, TRANSVERSE COLON BIOPSY: --CHRONIC ACTIVE COLITIS WITH CRYPTITIS AND CRYPT ABSCESSES --GRANULOMA OR DYSPLASIA ARE NOT IDENTIFIED D. COLON, DESCENDING COLON BIOPSY: --CHRONIC ACTIVE COLITIS WITH CRYPTITIS AND CRYPT ABSCESSES --GRANULOMA OR DYSPLASIA ARE NOT IDENTIFIED E. COLON, SIGMOID COLON BIOPSY: --CHRONIC ACTIVE COLITIS --GRANULOMA OR DYSPLASIA ARE NOT IDENTIFIED F. RECTUM BIOPSY: --CHRONIC ACTIVE COLITIS --GRANULOMA OR DYSPLASIA ARE NOT IDENTIFIED ASSESSMENT / PLAN ASSESSMENT/PLAN: Sheri South is a 34 y.o. female with a past medical history of Klebsiella UTI, LLE cellulitis, and recent admission for necrotizing soft tissue infection of perineum s/p I&D, C. Diff infection (technically colonization as toxin was negative) and recent diagnosis of Crohn's disease and [id number] weeks who presented on 09/26/24 for worsening hematochezia. GI is consulted for Crohn's flare and hematochezia. Pt's worsening hematochezia and diarrhea in addition to EIMs (oral ulcers, erythema nodosum) are concerning for Chron's disease not well controlled with her current therapy. It is possible the pt mayjust need additional control of her initial inflammation while Humira is beginning to take effect. It is also possible that she may need a higher dosing of her Humira (weekly dosing instead of every two weeks). If pt does not respond to steroids, she may need change of therapy to inflixmab (to be started inpatient), this is not ideal as infusions are logistically difficult for the patient. Patient improvement of symptoms while on IV steroids. Plan to switch to oral steroids on Tuesday. Repeat CRP decreased to 8 from 22 on admission. #hematochezia #Crohns ::Cdiff negative (09/27) :: Stool PCR panel pending :: CRP (09/30): 8 (22 on admission) Recommendations: -Continue with IV methylprednisolone 20mg q8 hours today -Switch from IV steroids to PO prednisone 40mg daily starting tomorrow. If patient continues to aveadequate control of symptoms after switching to PO steroids, will plan to discharge with PO prednisone taper (starting at 40mg daily for one week, and then decreasing by 5mg every week) -Humira level pending. Depending on these levels, pt may need increase in her Humira maintenance dosing -Can resume next Humira dose when pt returns home Patient was seen and discussed with Dr. Whitney . Gastroenterology will continue to follow. During weekday hours of 7am-5pm please do not hesitate to contact me on [employer] Chat or page [phone], ifthere are any further questions between the weekday hours of 7am-5pm. After hours, on weekends, and on holidays, [place] [phone]. Thank you. Cosigned by Bartolome Whitney MD at 09/30/2024 6:54 PM EST Associated attestation - Bartolome Wihtney MD - 09/30/2024 6:54 PM EST I saw and evaluated the patient. I personally obtained the cordova critical the cordova and critical portions of the history and physical exam. I reviewed the fellow's/resident's documentation and discussed the patient with the resident. I agree with the resident's medical decision making as documented in the resident's note. Patient continues to slowly improve. CRP significantly decreased as well as frequency of bowel movements. Will continue IV steroids today with plans to transition to oral steroids tomorrow. * Kim Montelongo MD - 09/30/2024 7:41 AM EST ANTEPARTUM PROGRESS NOTE 09/30/2024, 7:41 AM SUBJECTIVE: Patient reports decreasing frequency of bowel movements; now with less blood and becoming more formed. Overall feels better compared to initial presentation. Denies cramping/contractions, VB, or LOF. OBJECTIVE: BP 114/76 Pulse 85 Temp 37 C (98.6 F) (Temporal) Resp 18 Ht 1.6 m (5' 3) Wt 95.3 kg (210lb) LMP 03/22/2024 (Approximate) SpO2 96% BMI 37.20 kg/m Temp Min: 36 C (96.8 F) Max: 37 C (98.6 F) Pulse Min: 82 Max: 96 BP Min: 111/65 Max: 121/79 General: AAOx3, No acute distress Cardiovascular: Warm and well perfused Respiratory: Normal respiratory effort Abdominal: Soft, gravid, non-tender, no rebound or guarding, no palpable contractions Extremities: Warm, well perfused FHT: + on admission Labs: Results for orders placed or performed during the hospital encounter of 09/27/24 (from the past 24 hours) CBC and Auto Differential Result Value Ref Range WBC 8.7 4.4 - 11.3 x10*3/uL nRBC 0.0 0.0 - 0.0 /100 WBCs RBC 3.90 (L) 4.00 - 5.20 x10*6/uL Hemoglobin 9.6 (L) 12.0 - 16.0 g/dL Hematocrit 31.5 (L) 36.0 - 46.0 % MCV 81 80 - 100 fL MCH 24.6 (L) 26.0 - 34.0 pg MCHC 30.5 (L) 32.0 - 36.0 g/dL RDW 13.6 11.5 - 14.5 % Platelets 360 150 - 450 x10*3/uL Neutrophils % 65.5 40.0 - 80.0 % Immature Granulocytes %, Automated 1.6 (H) 0.0 - 0.9 % Lymphocytes % 24.2 13.0 - 44.0 % Monocytes % 8.4 2.0 - 10.0 % Eosinophils % 0.1 0.0 - 6.0 % Basophils % 0.2 0.0 - 2.0 % Neutrophils Absolute 5.66 1.20 - 7.70 x10*3/uL Immature Granulocytes Absolute, Automated 0.14 0.00 - 0.70 x10*3/uL Lymphocytes Absolute 2.09 1.20 - 4.80 x10*3/uL Monocytes Absolute 0.73 0.10 - 1.00 x10*3/uL Eosinophils Absolute 0.01 0.00 - 0.70 x10*3/uL Basophils Absolute 0.02 0.00 - 0.10 x10*3/uL ASSESSMENT AND PLAN: Sheri South is a 34 y.o. at approximately 14.2wga (LMP 10/4) admitted for Crohn's flare. Crohn's Flare, Perianal fistula Patient with history of Chron's, diagnosed in May 2024. Started on Mesalamine with worsening symptoms, therefore discontinued. In February 2024, patient had perineal necrotizing soft tissue infection, concerning for an anal fissure abscess. 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 Biopsies showed chronic active enteritis in the TI and chronic active colitis in all segments of the colon. Patient now with johanna-anal draining fistulae. - Patient started on Humira 08/30/2024, has since taken 3 injections with no improvement - Now with 2wk history or worsening Chron's symptoms - Afebrile, HDS, WBC wnl - Elevated inflammatory markers: ESR 113 and CRP to 22.16 on admission; calprotectin pending. Repeat CRP pending this AM - GI consulted & following. Per Recommendations: Continue IV methylprednisolone 20mg q8 hours for the next 48-72 hours. Plan to transition to PO steroid taper per GI recs and continue Humira outpatient - C diff negative. Stool pathogen neg - Continue supportive management including PRN Tylenol, Flexeril, Imodium. - Daily lytes ordered in setting of diarrhea. Replete as needed status: - (+) FHT on admission. Will obtain at discharge or PRN - s/p SSUS on 09/28 with dating confirmed; EFW 93g, AC 69% Dispo: pending GI recs Pt seen and discussed with MFM Attending, Dr. Tristan. Titi Montelongo MD PGY-II, Obstetrics & Gynecology [facility] Assessment & Plan Crohn disease of upper gastrointestinal tract Cosigned by Avery James MD at 09/30/2024 10:52 AM EST Associated attestation - Avery James MD - 09/30/2024 10:52 AM EST I saw and evaluated the patient. I personally obtained the cordova and critical portions of the historyand physical exam or was physically present for cordova and critical portions performed by the resident/fellow. I reviewed the resident/fellow's documentation and discussed the patient with the resident/f jamil. I agree with the resident/fellow's medical decision making as documented in the note. Feeling symptomatically improved. Appreciate input form GI team. Continue inpatient care pending ability to transfer to oral steroids per GI. Avery James MD Maternal Medicine * Yoanna Do MD - 09/29/2024 6:23 PM EST [facility] [place] CONSULT FOLLOW-UP Reason For Consult Crohn's flare, hematochezia SUBJECTIVE Reports slight decrease in frequency of stools and nocturnal symptoms. Reports decrease of blood instools. Reports much improvement in her oral ulcers and erythema nodosum. EXAM Last Recorded Vitals Blood pressure 113/70, pulse 85, temperature 36 C (96.8 F), temperature source Temporal, resp. rate18, height 1.6 m (5' 3), weight 95.3 kg (210 lb), last menstrual period 03/22/2024, SpO2 97%. No intake or output data in the 24 hours ending 09/29/24 1823 Physical Exam General: well-developed, well-nourished, no acute distress, AAOx3 HEENT: EOM intact CV: regular rate and rhythm Pulm: normal respiratory effort, clear to auscultation bilaterally Abd: soft, nontender, nondistended Extremities: warm, no LE edema, less prominent areas of tender erythema approx 1in in diameter located on bilateral shins and calves Neuro: moves all extremities equally, CN II - XII grossly intact Psych: normal mood and affect Skin: warm, dry, intact OBJECTIVE Medications Current Facility-Administered Medications: acetaminophen (Tylenol) tablet 975 mg, 975 mg, oral, q6h PRN, Kim Montelongo MD bisacodyl (Dulcolax) suppository 10 mg, 10 mg, rectal, Daily PRN, Kim Montelongo MD cyclobenzaprine (Flexeril) tablet 10 mg, 10 mg, oral, TID PRN, Kim Montelongo MD hydrALAZINE (Apresoline) injection 5 mg, 5 mg, intravenous, Once PRN, Kim Montelongo MD labetaloL (Normodyne,Trandate) injection 20 mg, 20 mg, intravenous, Once PRN, Kim Montelongo MD lidocaine (Xylocaine) 10 mg/mL (1 %) injection 0.5 mL, 0.5 mL, subcutaneous, Once PRN, Kim Montelongo MD loperamide (Imodium) capsule 4 mg, 4 mg, oral, TID PRN, Kim Montelongo MD magnesium hydroxide (Milk of Magnesia) 400 mg/5 mL suspension 10 mL, 10 mL, oral, q24h PRN, Lolly Montelongo MD methylPREDNISolone sod succinate (SOLU-Medrol) injection 20 mg, 20 mg, intravenous, q8h, Kim Montelongo MD, 20 mg at 09/29/24 1712 metoclopramide (Reglan) tablet 10 mg, 10 mg, oral, q6h PRN OR [DISCONTINUED] metoclopramide (Reglan) injection 10 mg, 10 mg, intravenous, q6h PRN, Kim Montelongo MD NIFEdipine (Procardia) capsule 10 mg, 10 mg, oral, Once PRN, Kim Montelongo MD ondansetron (Zofran) tablet 4 mg, 4 mg, oral, q6h PRN OR [DISCONTINUED] ondansetron (Zofran) injection 4 mg, 4 mg, intravenous, q6h PRN, Kim Montelongo MD polyethylene glycol (Glycolax, Miralax) packet 17 g, 17 g, oral, Daily PRN, Ari Max MD polyethylene glycol (Glycolax, Miralax) packet 17 g, 17 g, oral, BID PRN, Kim Montelongo MD vitamin (iron-folic) tablet 1 tablet, 1 tablet, oral, Daily, Kim Montelongo MD, 1 tablet at 09/29/24 0807 psyllium (Metamucil) 3.4 gram packet 1 packet, 1 packet, oral, Daily PRN, Kim Montelongo MD simethicone (Mylicon) chewable tablet 80 mg, 80 mg, oral, 4x daily PRN, Kim Montelongo MD Labs Labs: CBC RFP Lab Results Component Value Date WBC 7.9 09/29/2024 HGB 9.5 (L) 09/29/2024 HCT 30.9 (L) 09/29/2024 MCV 79 (L) 09/29/2024 PLT 354 09/29/2024 NEUTROABS 5.58 09/29/2024 Lab Results Component Value Date NA 134 (L) 09/29/2024 K 3.9 09/29/2024 CL 99 09/29/2024 CO2 27 09/29/2024 BUN 6 09/29/2024 CREATININE 0.38 (L) 09/29/2024 Lab Results Component Value Date MG 1.89 09/29/2024 PHOS 3.6 02/24/2024 CALCIUM 9.1 09/29/2024 ALBUMIN 3.0 (L) 09/27/2024 Hepatic Function ABG/VBG Lab Results Component Value Date ALT 13 09/27/2024 AST 14 09/27/2024 ALKPHOS 100 09/27/2024 Lab Results Component Value Date BILITOT 0.3 09/27/2024 BILIDIR 0.0 02/21/2024 Lab Results Component Value Date PROTIME 19.4 (H) 02/22/2024 APTT 31 02/22/2024 INR 1.7 (H) 02/22/2024 No results found for: NONUHFIRE, LACTATE Imaging CT ENTEROGRAPHY WITH IV CONTRAST; 06/13/2024 IMPRESSION: 1. Unremarkable small bowel including terminal ileal with intraluminal fecal material noted in the ascending colon. Bowel wall thickening, mucosal enhancement and hyperemia seen extending from proximal transverse colon all the way up to distal rectum, likely representing ulcerative colitis. Tissue diagnosis recommended. No evidence of bowel obstruction or stricture identified at current juncture. Comparison with outside prior study recommended. 2. Focal area of wall thickening of the anterior bladder wall with associated perivesicular fat stranding. Given the pancolitis described in previous colonoscopy reports, unable to completely exclude prior fistulization of the sigmoid colon with the bladder in this area. Comparison with outside prior imaging is strongly recommended. Additional considerations: Inflamed urachal remnant versus cystitis, correlate with urinalysis. 3. Right-sided nonobstructing nephrolithiasis. 4. Cholelithiasis without cholecystitis. 5. 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 However as per clinical need further evaluation with the serum IgG 4 level recommended. 6. Findings favored to represent postsurgical changes related to incision and drainage of the perianal region/left perineum. No loculated fluid collection. GI Procedures Cscope 04/26/24: Impression Moderate erythematous, granular mucosa with loss of vascular pattern in the terminal ileum; performed cold forceps biopsy to rule out IBD Erythematous, granular mucosa with loss of vascular pattern; performed cold forceps biopsies Severe granular mucosa with loss of vascular pattern in the descending colon; performed cold forceps biopsy to rule out IBD Severe erythematous, granular, ulcerated mucosa with loss of vascular pattern in the rectosigmoid; performed cold forceps biopsy to rule out IBD Findings Moderate, generalized erythematous and granular mucosa with loss of vascular pattern in the terminal ileum; performed cold forceps biopsy to rule out IBD. Erythematous without ulcerations. Generalized erythematous and granular mucosa with loss of vascular pattern in the ascending colon; performed cold forceps biopsy to rule out IBD Generalized erythematous and granular mucosa with loss of vascular pattern in the transverse colon;performed cold forceps biopsy Severe, generalized granular mucosa with loss of vascular pattern that did not appear erythematous in the descending colon; performed cold forceps biopsy to rule out IBD Severe, generalized erythematous, granular and ulcerated mucosa with loss of vascular pattern in the rectosigmoid; performed cold forceps biopsy to rule out IBD. Linear ulcerations. Overall and in the view of perianal abscesses this is consistent with Crohns disease. FINAL DIAGNOSIS A. TERMINAL ILEUM BIOPSY: --CHRONIC ACTIVE ENTERITIS --GRANULOMA OR PYLORIC GLAND METAPLASIA ARE NOT IDENTIFIED B. COLON, ASCENDING COLON BIOPSY: --CHRONIC ACTIVE COLITIS --GRANULOMA OR DYSPLASIA ARE NOT IDENTIFIED C. COLON, TRANSVERSE COLON BIOPSY: --CHRONIC ACTIVE COLITIS WITH CRYPTITIS AND CRYPT ABSCESSES --GRANULOMA OR DYSPLASIA ARE NOT IDENTIFIED D. COLON, DESCENDING COLON BIOPSY: --CHRONIC ACTIVE COLITIS WITH CRYPTITIS AND CRYPT ABSCESSES --GRANULOMA OR DYSPLASIA ARE NOT IDENTIFIED E. COLON, SIGMOID COLON BIOPSY: --CHRONIC ACTIVE COLITIS --GRANULOMA OR DYSPLASIA ARE NOT IDENTIFIED F. RECTUM BIOPSY: --CHRONIC ACTIVE COLITIS --GRANULOMA OR DYSPLASIA ARE NOT IDENTIFIED ASSESSMENT / PLAN ASSESSMENT/PLAN: Sheri South is a 34 y.o. female with a past medical history of Klebsiella UTI, LLE cellulitis, and recent admission for necrotizing soft tissue infection of perineum s/p I&D, C. Diff infection (technically colonization as toxin was negative) and recent diagnosis of Crohn's disease and [id number] weeks who presented on 09/26/24 for worsening hematochezia. GI is consulted for Crohn's flare and hematochezia. Pt's worsening hematochezia and diarrhea in addition to EIMs (oral ulcers, erythema nodosum) are concerning for Chron's disease not well controlled with her current therapy. It is possible the pt mayjust need additional control of her initial inflammation while Humira is beginning to take effect. It is also possible that she may need a higher dosing of her Humira (weekly dosing instead of every two weeks). If pt does not respond to steroids, she may need change of therapy to inflixmab (to be started inpatient), this is not ideal as infusions are logistically difficult for the patient. Patient having some improvement of symptoms while on IV steroids. May potentially plan to switch tooral steroids on Tuesday. #hematochezia #Crohns ::Cdiff negative (09/27) :: Stool PCR panel pending Recommendations: -Please obtain CRP -Continue with IV methylprednisolone 20mg q8 hours for 48-72 hours -If patient shows improvement of symptoms on IV steroids, plan to discharge with PO prednisone taper (starting at 40mg daily for one week, and then decreasing by 5mg every week) -Humira level pending. Depending on these levels, pt may need increase in her Humira maintenance dosing -Can resume next Humira dose when pt returns home Patient was seen and discussed with Dr. Whitney . Gastroenterology will continue to follow. During weekday hours of 7am-5pm please do not hesitate to contact me on Epic Chat or page [phone], ifthere are any further questions between the weekday hours of 7am-5pm. After hours, on weekends, and on holidays, [place] [phone]. Thank you. Cosigned by Bartolome Whitney MD at 09/29/2024 10:24 PM EST Associated attestation - Bartolome Whitney MD - 09/29/2024 10:24 PM EST I saw and evaluated the patient. I personally obtained the cordova critical the cordova and critical portions of the history and physical exam. I reviewed the fellow's/resident's documentation and discussed the patient with the resident. I agree with the resident's medical decision making as documented in the resident's note. Symptoms slowly improving on IV steroids. Skin and oral ulcers have improved significantly. Continue present treatment and can consider transition to po steroids in the next 1-2 days. * Lakisha Castillo MD - 09/29/2024 6:35 AM EST ANTEPARTUM PROGRESS NOTE 09/29/2024, 6:35 AM SUBJECTIVE: Pt reports improving consistency and frequency of diarrhea and hematochezia. N/V continues to be resolved, tolerating meals. Denies painful contractions, VB, LOF. OBJECTIVE: BP 102/66 (BP Location: Left arm, Patient Position: Lying) Pulse 76 Temp 36.8 C (98.2 F) (Temporal) Resp 16 Ht 1.6 m (5' 3) Wt 95.3 kg (210 lb) LMP 03/22/2024 (Approximate) SpO2 96% BMI 37.20 kg/m Temp Min: 36.1 C (97 F) Max: 36.8 C (98.2 F) Pulse Min: 76 Max: 89 BP Min: 102/66 Max: 135/92 General: AAOx3, No acute distress Cardiovascular: Warm and well perfused Respiratory: Normal respiratory effort Abdominal: Soft, gravid, non-tender, no rebound or guarding, no palpable contractions Extremities: Warm, well perfused NST: + on admission Labs: . Results for orders placed or performed during the hospital encounter of 09/27/24 (from the past 24 hours) Basic metabolic panel Result Value Ref Range Glucose 164 (H) 74 - 99 mg/dL Sodium 136 136 - 145 mmol/L Potassium 4.1 3.5 - 5.3 mmol/L Chloride 100 98 - 107 mmol/L Bicarbonate 25 21 - 32 mmol/L Anion Gap 15 10 - 20 mmol/L Urea Nitrogen 5 (L) 6 - 23 mg/dL Creatinine 0.48 (L) 0.50 - 1.05 mg/dL eGFR >90 >60 mL/min/1.73m*2 Calcium 9.3 8.6 - 10.6 mg/dL Magnesium Result Value Ref Range Magnesium 2.01 1.60 - 2.40 mg/dL CBC and Auto Differential Result Value Ref Range WBC 7.4 4.4 - 11.3 x10*3/uL nRBC 0.0 0.0 - 0.0 /100 WBCs RBC 3.96 (L) 4.00 - 5.20 x10*6/uL Hemoglobin 9.7 (L) 12.0 - 16.0 g/dL Hematocrit 31.4 (L) 36.0 - 46.0 % MCV 79 (L) 80 - 100 fL MCH 24.5 (L) 26.0 - 34.0 pg MCHC 30.9 (L) 32.0 - 36.0 g/dL RDW 13.5 11.5 - 14.5 % Platelets 323 150 - 450 x10*3/uL Neutrophils % 74.3 40.0 - 80.0 % Immature Granulocytes %, Automated 0.7 0.0 - 0.9 % Lymphocytes % 19.2 13.0 - 44.0 % Monocytes % 5.4 2.0 - 10.0 % Eosinophils % 0.0 0.0 - 6.0 % Basophils % 0.4 0.0 - 2.0 % Neutrophils Absolute 5.47 1.20 - 7.70 x10*3/uL Immature Granulocytes Absolute, Automated 0.05 0.00 - 0.70 x10*3/uL Lymphocytes Absolute 1.41 1.20 - 4.80 x10*3/uL Monocytes Absolute 0.40 0.10 - 1.00 x10*3/uL Eosinophils Absolute 0.00 0.00 - 0.70 x10*3/uL Basophils Absolute 0.03 0.00 - 0.10 x10*3/uL CBC and Auto Differential Result Value Ref Range WBC 7.9 4.4 - 11.3 x10*3/uL nRBC 0.0 0.0 - 0.0 /100 WBCs RBC 3.89 (L) 4.00 - 5.20 x10*6/uL Hemoglobin 9.5 (L) 12.0 - 16.0 g/dL Hematocrit 30.9 (L) 36.0 - 46.0 % MCV 79 (L) 80 - 100 fL MCH 24.4 (L) 26.0 - 34.0 pg MCHC 30.7 (L) 32.0 - 36.0 g/dL RDW 13.5 11.5 - 14.5 % Platelets 354 150 - 450 x10*3/uL Neutrophils % 70.6 40.0 - 80.0 % Immature Granulocytes %, Automated 1.3 (H) 0.0 - 0.9 % Lymphocytes % 21.3 13.0 - 44.0 % Monocytes % 6.5 2.0 - 10.0 % Eosinophils % 0.0 0.0 - 6.0 % Basophils % 0.3 0.0 - 2.0 % Neutrophils Absolute 5.58 1.20 - 7.70 x10*3/uL Immature Granulocytes Absolute, Automated 0.10 0.00 - 0.70 x10*3/uL Lymphocytes Absolute 1.68 1.20 - 4.80 x10*3/uL Monocytes Absolute 0.51 0.10 - 1.00 x10*3/uL Eosinophils Absolute 0.00 0.00 - 0.70 x10*3/uL Basophils Absolute 0.02 0.00 - 0.10 x10*3/uL ASSESSMENT AND PLAN: Sheri South is a 34 y.o. at approximately 14.1wga (LMP 10/4) admitted for Crohn's flare. Crohn's Flare, Perianal fistula Patient with history of Chron's, diagnosed in May 2024. Started on Mesalamine with worsening symptoms, therefore discontinued. In February 2024, patient had perineal necrotizing soft tissue infection, concerning for an anal fissure abscess. 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 Biopsies showed chronic active enteritis in the TI and chronic active colitis in all segments of the colon. Patient now with johanna-anal draining fistulae. - Patient started on Humira 08/30/2024, has since taken 3 injections with no improvement - Now with 2wk history or worsening Chron's symptoms - Afebrile, HDS, WBC wnl -Elevated inflammatory markers: ESR 113 and CRP to 22.16 on admission; calprotectin pending - GI consulted & following. Per Recommendations: Continue IV methylprednisolone 20mg q8 hours for the next 48-72 hours. Plan to transition to PO steroid taper (will outline in note) later today and continue Humira outpatient - C diff negative. Stool pathogen neg - Continue supportive management including PRN Tylenol, Flexeril, Imodium. - Daily lytes ordered in setting of diarrhea. Replete as needed status: - (+) FHT on admission. Will obtain at discharge or PRN - No formal US or PNC yet this ; will establish prior to DC - NT scan pending results this AM Dispo: continue inpatient management for hematochezia Pt seen and discussed with M Attending, Dr. Tristan. Lakisha Castillo MD , PGY-3 [facility] Pager [phone] Assessment & Plan Crohn disease of upper gastrointestinal tract Cosigned by Derrell Tristan MD at 09/29/2024 10:51 AM EST Associated attestation - Derrell Tristan MD - 09/29/2024 10:51 AM EST I saw and evaluated the patient. I personally obtained the cordova and critical portions of the historyand physical exam or was physically present for cordova and critical portions performed by the resident/fellow. I reviewed the resident/fellow's documentation and discussed the patient with the resident/f jamil. I agree with the resident/fellow's medical decision making as documented in the note. Derrell Tristan MD Maternal Medicine Director of Intervention * Yoanna Do MD - 09/28/2024 10:16 AM EST [facility] [place] CONSULT FOLLOW-UP Reason For Consult Crohn's flare, hematochezia SUBJECTIVE Got first dose of IV steroids last night. She feels like the frequency of her Bms have slightly decreased. Still has hematochezia. EXAM Last Recorded Vitals Blood pressure 111/72, pulse 86, temperature 36.8 C (98.2 F), temperature source Oral, resp. rate 16, height 1.6 m (5' 3), weight 95.3 kg (210 lb), last menstrual period 03/22/2024, SpO2 96%. Intake/Output Summary (Last 24 hours) at 09/28/2024 1017 Last data filed at 09/27/2024 1300 Gross per 24 hour Intake -- Output 300 ml Net -300 ml Physical Exam General: well-developed, well-nourished, no acute distress, AAOx3 HEENT: EOM intact CV: regular rate and rhythm Pulm: normal respiratory effort, clear to auscultation bilaterally Abd: soft, nontender, nondistended Extremities: warm, no LE edema, scattered areas of tender erythema approx 1in in diameter located on bilateral shins and calves Neuro: moves all extremities equally, CN II - XII grossly intact Psych: normal mood and affect Skin: warm, dry, intact OBJECTIVE Medications Current Facility-Administered Medications: acetaminophen (Tylenol) tablet 975 mg, 975 mg, oral, q6h PRN, Kim Montelongo MD bisacodyl (Dulcolax) suppository 10 mg, 10 mg, rectal, Daily PRN, Kim Montelongo MD cyclobenzaprine (Flexeril) tablet 10 mg, 10 mg, oral, TID PRN, Kim Montelongo MD enoxaparin (Lovenox) syringe 40 mg, 40 mg, subcutaneous, q24h, Ari Max MD, 40 mg at 09/28/24 0826 hydrALAZINE (Apresoline) injection 5 mg, 5 mg, intravenous, Once PRN, Kim Montelongo MD labetaloL (Normodyne,Trandate) injection 20 mg, 20 mg, intravenous, Once PRN, Kim Montelongo MD lidocaine (Xylocaine) 10 mg/mL (1 %) injection 0.5 mL, 0.5 mL, subcutaneous, Once PRN, Kim Montelongo MD loperamide (Imodium) capsule 4 mg, 4 mg, oral, TID PRN, Kim Montelongo MD magnesium hydroxide (Milk of Magnesia) 400 mg/5 mL suspension 10 mL, 10 mL, oral, q24h PRN, Lolly Montelongo MD methylPREDNISolone sod succinate (SOLU-Medrol) injection 20 mg, 20 mg, intravenous, q8h, Kim Montelongo MD, 20 mg at 09/28/24 0826 metoclopramide (Reglan) tablet 10 mg, 10 mg, oral, q6h PRN OR [DISCONTINUED] metoclopramide (Reglan) injection 10 mg, 10 mg, intravenous, q6h PRN, Kim Montelongo MD NIFEdipine (Procardia) capsule 10 mg, 10 mg, oral, Once PRN, Kim Montelongo MD ondansetron (Zofran) tablet 4 mg, 4 mg, oral, q6h PRN OR [DISCONTINUED] ondansetron (Zofran) injection 4 mg, 4 mg, intravenous, q6h PRN, Kim Montelongo MD polyethylene glycol (Glycolax, Miralax) packet 17 g, 17 g, oral, Daily PRN, Ari Max MD polyethylene glycol (Glycolax, Miralax) packet 17 g, 17 g, oral, BID PRN, Kim Montelongo MD vitamin (iron-folic) tablet 1 tablet, 1 tablet, oral, Daily, Kim Montelongo MD, 1 tablet at 09/28/24 0826 psyllium (Metamucil) 3.4 gram packet 1 packet, 1 packet, oral, Daily PRN, Kim Montelongo MD simethicone (Mylicon) chewable tablet 80 mg, 80 mg, oral, 4x daily PRN, Kim Montelongo MD Labs Labs: CBC RFP Lab Results Component Value Date WBC 10.6 09/27/2024 HGB 9.4 (L) 09/27/2024 HCT 28.5 (L) 09/27/2024 MCV 75 (L) 09/27/2024 PLT 335 09/27/2024 NEUTROABS 6.91 09/27/2024 Lab Results Component Value Date NA 130 (L) 09/27/2024 K 3.2 (L) 09/27/2024 CL 96 (L) 09/27/2024 CO2 24 09/27/2024 BUN 6 09/27/2024 CREATININE 0.56 09/27/2024 Lab Results Component Value Date MG 1.78 09/27/2024 PHOS 3.6 02/24/2024 CALCIUM 8.6 09/27/2024 ALBUMIN 3.0 (L) 09/27/2024 Hepatic Function ABG/VBG Lab Results Component Value Date ALT 13 09/27/2024 AST 14 09/27/2024 ALKPHOS 100 09/27/2024 Lab Results Component Value Date BILITOT 0.3 09/27/2024 BILIDIR 0.0 02/21/2024 Lab Results Component Value Date PROTIME 19.4 (H) 02/22/2024 APTT 31 02/22/2024 INR 1.7 (H) 02/22/2024 No results found for: NONUHFIRE, LACTATE Imaging CT ENTEROGRAPHY WITH IV CONTRAST; 06/13/2024 IMPRESSION: 1. Unremarkable small bowel including terminal ileal with intraluminal fecal material noted in the ascending colon. Bowel wall thickening, mucosal enhancement and hyperemia seen extending from proximal transverse colon all the way up to distal rectum, likely representing ulcerative colitis. Tissue diagnosis recommended. No evidence of bowel obstruction or stricture identified at current juncture. Comparison with outside prior study recommended. 2. Focal area of wall thickening of the anterior bladder wall with associated perivesicular fat stranding. Given the pancolitis described in previous colonoscopy reports, unable to completely exclude prior fistulization of the sigmoid colon with the bladder in this area. Comparison with outside prior imaging is strongly recommended. Additional considerations: Inflamed urachal remnant versus cystitis, correlate with urinalysis. 3. Right-sided nonobstructing nephrolithiasis. 4. Cholelithiasis without cholecystitis. 5. 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 However as per clinical need further evaluation with the serum IgG 4 level recommended. 6. Findings favored to represent postsurgical changes related to incision and drainage of the perianal region/left perineum. No loculated fluid collection. GI Procedures Cscope 04/26/24: Impression Moderate erythematous, granular mucosa with loss of vascular pattern in the terminal ileum; performed cold forceps biopsy to rule out IBD Erythematous, granular mucosa with loss of vascular pattern; performed cold forceps biopsies Severe granular mucosa with loss of vascular pattern in the descending colon; performed cold forceps biopsy to rule out IBD Severe erythematous, granular, ulcerated mucosa with loss of vascular pattern in the rectosigmoid; performed cold forceps biopsy to rule out IBD Findings Moderate, generalized erythematous and granular mucosa with loss of vascular pattern in the terminal ileum; performed cold forceps biopsy to rule out IBD. Erythematous without ulcerations. Generalized erythematous and granular mucosa with loss of vascular pattern in the ascending colon; performed cold forceps biopsy to rule out IBD Generalized erythematous and granular mucosa with loss of vascular pattern in the transverse colon;performed cold forceps biopsy Severe, generalized granular mucosa with loss of vascular pattern that did not appear erythematous in the descending colon; performed cold forceps biopsy to rule out IBD Severe, generalized erythematous, granular and ulcerated mucosa with loss of vascular pattern in the rectosigmoid; performed cold forceps biopsy to rule out IBD. Linear ulcerations. Overall and in the view of perianal abscesses this is consistent with Crohns disease. FINAL DIAGNOSIS A. TERMINAL ILEUM BIOPSY: --CHRONIC ACTIVE ENTERITIS --GRANULOMA OR PYLORIC GLAND METAPLASIA ARE NOT IDENTIFIED B. COLON, ASCENDING COLON BIOPSY: --CHRONIC ACTIVE COLITIS --GRANULOMA OR DYSPLASIA ARE NOT IDENTIFIED C. COLON, TRANSVERSE COLON BIOPSY: --CHRONIC ACTIVE COLITIS WITH CRYPTITIS AND CRYPT ABSCESSES --GRANULOMA OR DYSPLASIA ARE NOT IDENTIFIED D. COLON, DESCENDING COLON BIOPSY: --CHRONIC ACTIVE COLITIS WITH CRYPTITIS AND CRYPT ABSCESSES --GRANULOMA OR DYSPLASIA ARE NOT IDENTIFIED E. COLON, SIGMOID COLON BIOPSY: --CHRONIC ACTIVE COLITIS --GRANULOMA OR DYSPLASIA ARE NOT IDENTIFIED F. RECTUM BIOPSY: --CHRONIC ACTIVE COLITIS --GRANULOMA OR DYSPLASIA ARE NOT IDENTIFIED ASSESSMENT / PLAN ASSESSMENT/PLAN: Sheri South is a 34 y.o. female with a past medical history of Klebsiella UTI, LLE cellulitis, and recent admission for necrotizing soft tissue infection of perineum s/p I&D, C. Diff infection (technically colonization as toxin was negative) and recent diagnosis of Crohn's disease and [id number] weeks who presented on 09/26/24 for worsening hematochezia. GI is consulted for Crohn's flare and hematochezia. Pt's worsening hematochezia and diarrhea in addition to EIMs (oral ulcers, erythema nodosum) are concerning for Chron's disease not well controlled with her current therapy. It is possible the pt mayjust need additional control of her initial inflammation while Humira is beginning to take effect. It is also possible that she may need a higher dosing of her Humira (weekly dosing instead of every two weeks). If pt does not respond to steroids, she may need change of therapy to inflixmab (to be started inpatient), this is not ideal as infusions are logistically difficult for the patient. #hematochezia #Crohns ::Cdiff negative (09/27) :: Stool PCR panel pending Recommendations: - Continue with IV methylprednisolone 20mg q8 hours for 48-72 hours -If patient shows improvement of symptoms on IV steroids, plan to discharge with PO prednisone taper (starting at 40mg daily for one week, and then decreasing by 5mg every week) -Humira level pending. Depending on these levels, pt may need increase in her Humira maintenance dosing -Can resume next Humira dose when pt returns home Patient was seen and discussed with Dr. Whitney . Gastroenterology will continue to follow. During weekday hours of 7am-5pm please do not hesitate to contact me on [employer] Chat or page [phone], ifthere are any further questions between the weekday hours of 7am-5pm. After hours, on weekends, and on holidays, [place] [phone]. Thank you. Cosigned by Bartolome Whitney MD at 09/28/2024 1:02 PM EST Associated attestation - Bartolome Whitney MD - 09/28/2024 1:02 PM EST I saw and evaluated the patient. I personally obtained the cordova critical the cordova and critical portions of the history and physical exam. I reviewed the fellow's/resident's documentation and discussed the patient with the resident. I agree with the resident's medical decision making as documented in the resident's note. Patient seen and examined. 34 yo woman with Crohn's ileocolitis with flare in setting of being 14 weeks . Diarrhea slightly improved after initial doses of steroids. Would recommend continuedIV steroids for now. Patient can resume her Humira upon discharge. Will follow. * Lakisha Castillo MD - 09/28/2024 7:19 AM EST .ANTEPARTUM PROGRESS NOTE 09/28/2024, 8:42 AM SUBJECTIVE: Pt reports improving nausea and no emesis overnight, was able to tolerate sandwich. Continues to have hematochezia. Denies VB, ctx and LOF. OBJECTIVE: BP 111/72 Pulse 86 Temp 36.8 C (98.2 F) (Oral) Resp 16 Ht 1.6 m (5' 3) Wt 95.3 kg (210 lb) LMP 03/22/2024 (Approximate) SpO2 96% BMI 37.20 kg/m Temp Min: 36 C (96.8 F) Max: 36.8 C (98.2 F) Pulse Min: 86 Max: 106 BP Min: 107/67 Max: 124/76 General: AAOx3, No acute distress Cardiovascular: Warm and well perfused Respiratory: Normal respiratory effort Abdominal: Soft, gravid, non-tender, no rebound or guarding, no palpable contractions Extremities: Warm, well perfused, no edema, no calf tenderness , scant salmon colored patches (baseline dermatitis) NST: + on admission Labs: . Results for orders placed or performed during the hospital encounter of 09/27/24 (from the past 24 hours) C. difficile, PCR Specimen: Stool Result Value Ref Range C. difficile, PCR Not Detected Not Detected Type And Screen Result Value Ref Range ABO TYPE AB Rh TYPE POS ANTIBODY SCREEN NEG Extra Urine Springer Tube Result Value Ref Range Extra Tube Hold for add-ons. ASSESSMENT AND PLAN: Sheri South is a 34 y.o. at approximately 14.0wga (LMP 10/4) admitted for Crohn's flare. Crohn's Flare, Perianal fistula Patient with history of Chron's, diagnosed in May 2024. Started on Mesalamine with worsening symptoms, therefore discontinued. In February 2024, patient had perineal necrotizing soft tissue infection, concerning for an anal fissure abscess. 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 Biopsies showed chronic active enteritis in the TI and chronic active colitis in all segments of the colon. Patient now with johanna-anal draining fistulae. - Patient started on Humira 08/30/2024, has since taken 3 injections with no improvement - Now with 2wk history or worsening Chron's symptoms - Afebrile, HDS, WBC wnl -Elevated inflammatory markers: ESR 113 and CRP to 22.16 on admission; AM labs pending calprotectinpending - GI consulted & following. Per Recommendations: Continue IV methylprednisolone 20mg q8 hours for the next 48-72 hours. If she responds well, will transition to PO steroid taper (will outline in note) and continue Humira - C diff negative. Stool studies pending - Continue supportive management including PRN Tylenol, Flexeril, Imodium. - Daily lytes ordered in setting of diarrhea. Replete as needed status: - (+) FHT on admission. Will obtain at discharge or PRN - No formal US or PNC yet this ; will establish prior to DC - NT scan pending results this AM Dispo: continue inpatient management for hematochezia Pt seen and discussed with M Attending, Dr. Tristan . Lakisha Castillo MD , PGY-3 [facility] Pager [phone] Assessment & Plan Crohn disease of upper gastrointestinal tract Cosigned by Derrell Tristan MD at 09/28/2024 9:03 AM EST Associated attestation - Derrell Tristan MD - 09/28/2024 9:03 AM EST I saw and evaluated the patient. I personally obtained the cordova and critical portions of the historyand physical exam or was physically present for cordova and critical portions performed by the resident/fellow. I reviewed the resident/fellow's documentation and discussed the patient with the resident/f jamil. I agree with the resident/fellow's medical decision making as documented in the note. [facility] Work Phone: 1(129) 473-254001-13-2025 Plan of care note* Care Plan - Gi Whitney RN - 10/01/2024 5:34 PM EST The patient's goals for the shift include decreased diarrhea The clinical goals for the shift include decreased diarrhea and no blood Pt reports decrease in frequency of stools, more formed stools, and less blood in stools. [facility] Work Phone: [phone] 248-742901-13-2025 Hospital Note* Hospital Course - Lakisha Castillo MD - 10/01/2024 2:47 PM EST 34 y.o who is 14.## wga by LMP c/w 14.0 wk US with PMH Crohn's disease c/b perianal fistulaon Humira who is HD### for Crohn's flare. Patient was admitted on 09/27 for nausea, vomiting and hematochezia c/f Crohn's flare. Admission labs notable for elevated ESR (113) and CRP (22.16) , Calprotectin >3000. Patient has h/o C diff, repeat C diff was negative during admission. Stool pathogen unremarkable. Humira level pending on day of discharge. GI was consulted and patient received IV methylprednisolone 20mg q8hrs (09/27- 09/30) and transitioned to a PO prednisone steroid taper on 10/01. OB US performed during admission and confirmed dating of 14.0 wga on 09/28. Patient had significantly improving hematochezia by HD #5 and was stable for discharge home on HD##. FHT noted on admission and day of discharge. Patient to continue PO prednisone taper with the following regimen at discharge with plan to resume Humira per GI recs. See notes for details. Pt follow up with outpatient GI and OBGYN provider as scheduled. [facility] Work Phone: [phone]) 891-773201-13-2025 Plan of care note* Care Plan - Tiffanie Sprague RN - 10/01/2024 6:20 AM EST The patient's goals for the shift include to get some sleep and for my diarrhea to improve The clinical goals for the shift include patient will have decreased episodes of diarrhea with no blood in stool overnight Patient did well overnight and may be discharged home later today depending on how she does on the PO prednisone. Vitals stable and patient has not complained of any pain. Patient had some diarrhea last night but it did not have any blood in it which patient was happy about. Patient to start PO prednisone this morning. Sleeping at this time. Will continue to monitor for any changes. [facility]01-12-2025 Plan of care note* Care Plan - Areli Barajas RN - 09/30/2024 3:41 PM EST The patient's goals for the shift include Rest The clinical goals for the shift include Pt will have decreased episodes of diarrhea this shift Pt states she feels much better today. Last bm w/semi-formed stool was around 0500 this morning. Ptdenies any pain or cramping. Has been tolerating a regular diet without n/v. Continues on iv solumedrol as ordered. Per GI note plan is to possibly tire changer to oral steroids Tuesday. Pt has been ambulating in the halls and painted a craft in her room this shift. [facility]01-11-2025 Plan of care note* Care Plan - Theresa Victoria RN - 09/29/2024 6:36 PM EST The patient's goals for the shift include to get some rest The clinical goals for the shift include no bloody stool Patient remained stable this shift. Patient has not reported bloody stool since this AM. Keeping upwith IV prednisone and patient is feeling better. Patients needs addressed at this time. [facility] Work Phone: [phone] 113-740501-10-2025 Plan of care note* Care Plan - Gi Whitney RN - 09/28/2024 6:04 PM EST The patient's goals for the shift include no bloody stool The clinical goals for the shift include no bloody stool VS and assessments stable. Pt continues to have bloody liquid stools. [facility] Work Phone: [phone] 887-114501-10-2025 C. difficile toxin A+B tcdA+tcdB genes DARREN+probe Ql (Stl)C. difficile, PCRNot DetectedNot Detected [facility] COVID-19 DIRECT ASS[facility] 09/28/2024 12:28 AM [facility]01-09-2025 Consult note* Yoanna Do MD - 09/27/2024 2:21 PM ESTAssociated Order(s): IP CONSULT TO GASTROENTEROLOGY [facility] INITIAL CONSULT NOTE Reason For Consult Crohn's flare, hematochezia SUBJECTIVE History Of Present Illness Sheri South is a 34 y.o. female with a past medical history of Klebsiella UTI, LLE cellulitis, and recent admission for necrotizing soft tissue infection of perineum s/p I&D, C. Diff infection (technically colonization as toxin was negative) and recent diagnosis of Crohn's disease and [id number] weeks who presented on 09/26/24 for worsening hematochezia. GI is consulted for Crohn's flare and hematochezia. She reports looser and more frequent Bms over the past 2-3 days. She also reports persistent blood in the stool. In addition to the 2-3 loose stools, she is going 3 or 4 additional times where she only passes gas and mucus. She endorses urgency and nocturnal symptoms. Furthermore, she notes oral ulcers for the past 2 weeks and presence of tender red bumps on her shins and calves. She also notes intermittent fevers; she had one 100.3F last week (resolved with tylenol), 09/26/24PM fever 102 (resolved with tylenol), 101F right before leaving for the ED which self resolved by the time she arrived to . She started her first Humira induction dose 08/30/24. Received second induction dose two weeks later and is due for her first maintance dose today. In the past, she was started on a 2month prednisonetaper 2023 and felt well within the first two days. She completed the taper 9 weeks ago. IBD hx Briefly, the patient initially presented to [facility] in August 2023 with abdominal pain,fatigue, dizziness, and bloody stools. Laboratory tests indicated elevated inflammatory markers (CRP 18.74, ESR 95), anemia (hemoglobin 9.7), and hypoalbuminemia (1.9). Imaging and a colonoscopy revealed mild shen- colitis, confirmed by biopsy to be chronic active colitis with varying degrees of severity throughout the colon. She was treated with prednisone and mesalamine, which initially alleviated her symptoms, but her condition worsened when the prednisone was tapered. In February 2024, the patient was readmitted with severe perineal pain, where a CT scan indicated necrotizing fasciitis of the pe rineum and a potential perianal fistula. A positive C. diff test led to treatment with PO vancomycin. In February 2024 had a perineal necrotizing soft tissue infection, and per the op note, this was actually an anal fissure abscess which gave concern that her IBD was actually crohn's and not UC. During outpt GI visit February 2024, patient had reported resolution of symptoms and was not having anydiarrhea or rectal bleeding. She was not on any steroids at the time. CRP was not elevated at 0.58,but her fecal calprotectin was elevated to 974. Her CBC also showed microcytic, hypochromic anemia consistent with ADRIEL. She subsequently obtained a colonoscopy in Apr 2024 which showed inflammation in the entire colon, worst in the rectosigmoid, along with involvement of the TI. Biopsies showed chronic active enteritis in the TI and chronic active colitis in all segments of the colon. During outpt Gi visit 05/24/24 she was having bloody diarrhea along with urgency and started on 2 month prednisone taper (starting at 40mg) with improvement of symptoms and decision was made to start Humira. She is currently getting it through a patient assistance program from the [employer] as the patient has community insurance ([employer]) and would not be able to afford expensive biologic medications. 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 Pt received her first induction dose 08/30/24. Review of Systems 12-point ROS has been reviewed and is negative, except if mentioned otherwise above. Past Medical History: Past Medical History: Diagnosis Date Crohn's disease (Multi) Home Medications Medications Prior to Admission Medication Sig Dispense Refill Last Dose/Taking acetaminophen (Tylenol) 325 mg tablet Take 2 tablets (650 mg) by mouth every 6 hours. adalimumab (Humira Pen) 40 mg/0.4 mL pen injector kit pen-injector Inject 1 Pen (40 mg) under the skin every 14 (fourteen) days. 2 each 11 adalimumab (Humira,CF, Pen Rtaszp-CK-GI) 80 mg/0.8 mL pen injector kit pen- injector adalimumab (Humira) dose instructions: On day 1, inject 160 mg under the skin. On day 15, inject 80 mg under skin. Change sites each time. take 160 mg (2 Pens) subcutaneous on day 0 then take 80 mg subcutaneous on day 15 3 each 0 budesonide (Uceris) 2 mg/actuation foam Insert 2 mg into the rectum once daily. 33.4 g 1 Surgical History: Past Surgical History: Procedure Laterality Date ABCESS DRAINAGE Buttocks ABDOMINAL SURGERY Allergies: Allergies Allergen Reactions Mesalamine Other Social History: Family History: No family history on file. EXAM Vitals: Vitals: 09/26/24 2120 09/27/24 0828 09/27/24 0955 09/27/24 1213 BP: 116/68 106/53 107/67 111/66 BP Location: Left arm Left arm Patient Position: Sitting Lying Lying Lying Pulse: (!) 116 90 95 Resp: 16 18 18 18 Temp: 36.7 C (98.1 F) 36.7 C (98.1 F) 36.6 C (97.9 F) TempSrc: Oral Temporal Temporal SpO2: 97% 100% (!) 95% 97% Weight: 95.3 kg (210 lb) Height: 1.6 m (5' 3) Failed to redirect to the Timeline version of the [employer]. Intake/Output Summary (Last 24 hours) at 09/27/2024 1422 Last data filed at 09/27/2024 1300 Gross per 24 hour Intake -- Output 301 ml Net -301 ml Physical Exam General: well-developed, well-nourished, no acute distress, AAOx3 HEENT: EOM intact CV: regular rate and rhythm Pulm: normal respiratory effort, clear to auscultation bilaterally Abd: soft, nontender, nondistended Extremities: warm, no LE edema, scattered areas of tender erythema approx 1in in diameter located on bilateral shins and calves Neuro: moves all extremities equally, CN II - XII grossly intact Psych: normal mood and affect Skin: warm, dry, intact OBJECTIVE Medications Current Facility-Administered Medications: acetaminophen (Tylenol) tablet 975 mg, 975 mg, oral, q6h PRN, Kim Montelongo MD bisacodyl (Dulcolax) suppository 10 mg, 10 mg, rectal, Daily PRN, Kim Montelongo MD cyclobenzaprine (Flexeril) tablet 10 mg, 10 mg, oral, TID PRN, Kim Montelongo MD enoxaparin (Lovenox) syringe 40 mg, 40 mg, subcutaneous, q24h, Ari Max MD, 40 mg at 09/27/24 0818 hydrALAZINE (Apresoline) injection 5 mg, 5 mg, intravenous, Once PRN, Kim Montelongo MD labetaloL (Normodyne,Trandate) injection 20 mg, 20 mg, intravenous, Once PRN, Kim Montelongo MD lidocaine (Xylocaine) 10 mg/mL (1 %) injection 0.5 mL, 0.5 mL, subcutaneous, Once PRN, Kim Montelongo MD loperamide (Imodium) capsule 4 mg, 4 mg, oral, TID PRN, Kim Montelongo MD magnesium hydroxide (Milk of Magnesia) 400 mg/5 mL suspension 10 mL, 10 mL, oral, q24h PRN, Lolly Montelongo MD metoclopramide (Reglan) tablet 10 mg, 10 mg, oral, q6h PRN OR metoclopramide (Reglan) uwanjvach19 mg, 10 mg, intravenous, q6h PRN, Kim Montelongo MD NIFEdipine (Procardia) capsule 10 mg, 10 mg, oral, Once PRN, Kim Montelongo MD ondansetron (Zofran) tablet 4 mg, 4 mg, oral, q6h PRN OR ondansetron (Zofran) injection 4 mg, 4mg, intravenous, q6h PRN, Kim Montelongo MD polyethylene glycol (Glycolax, Miralax) packet 17 g, 17 g, oral, Daily PRN, Ari Max MD polyethylene glycol (Glycolax, Miralax) packet 17 g, 17 g, oral, BID PRN, Kim Montelongo MD vitamin (iron-folic) tablet 1 tablet, 1 tablet, oral, Daily, Kim Montelongo MD psyllium (Metamucil) 3.4 gram packet 1 packet, 1 packet, oral, Daily PRN, Kim Montelongo MD simethicone (Mylicon) chewable tablet 80 mg, 80 mg, oral, 4x daily PRN, Kim Montelongo MD Labs Labs: CBC RFP Lab Results Component Value Date WBC 10.6 09/27/2024 HGB 9.4 (L) 09/27/2024 HCT 28.5 (L) 09/27/2024 MCV 75 (L) 09/27/2024 PLT 335 09/27/2024 NEUTROABS 6.91 09/27/2024 Lab Results Component Value Date NA 130 (L) 09/27/2024 K 3.2 (L) 09/27/2024 CL 96 (L) 09/27/2024 CO2 24 09/27/2024 BUN 6 09/27/2024 CREATININE 0.56 09/27/2024 Lab Results Component Value Date MG 1.78 09/27/2024 PHOS 3.6 02/24/2024 CALCIUM 8.6 09/27/2024 ALBUMIN 3.0 (L) 09/27/2024 Hepatic Function ABG/VBG Lab Results Component Value Date ALT 13 09/27/2024 AST 14 09/27/2024 ALKPHOS 100 09/27/2024 Lab Results Component Value Date BILITOT 0.3 09/27/2024 BILIDIR 0.0 02/21/2024 Lab Results Component Value Date PROTIME 19.4 (H) 02/22/2024 APTT 31 02/22/2024 INR 1.7 (H) 02/22/2024 No results found for: NONUHFIRE, LACTATE Imaging CT ENTEROGRAPHY WITH IV CONTRAST; 06/13/2024 IMPRESSION: 1. Unremarkable small bowel including terminal ileal with intraluminal fecal material noted in the ascending colon. Bowel wall thickening, mucosal enhancement and hyperemia seen extending from proximal transverse colon all the way up to distal rectum, likely representing ulcerative colitis. Tissue diagnosis recommended. No evidence of bowel obstruction or stricture identified at current juncture. Comparison with outside prior study recommended. 2. Focal area of wall thickening of the anterior bladder wall with associated perivesicular fat stranding. Given the pancolitis described in previous colonoscopy reports, unable to completely exclude prior fistulization of the sigmoid colon with the bladder in this area. Comparison with outside prior imaging is strongly recommended. Additional considerations: Inflamed urachal remnant versus cystitis, correlate with urinalysis. 3. Right-sided nonobstructing nephrolithiasis. 4. Cholelithiasis without cholecystitis. 5. 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 However as per clinical need further evaluation with the serum IgG 4 level recommended. 6. Findings favored to represent postsurgical changes related to incision and drainage of the perianal region/left perineum. No loculated fluid collection. GI Procedures Cscope 04/26/24: Impression Moderate erythematous, granular mucosa with loss of vascular pattern in the terminal ileum; performed cold forceps biopsy to rule out IBD Erythematous, granular mucosa with loss of vascular pattern; performed cold forceps biopsies Severe granular mucosa with loss of vascular pattern in the descending colon; performed cold forceps biopsy to rule out IBD Severe erythematous, granular, ulcerated mucosa with loss of vascular pattern in the rectosigmoid; performed cold forceps biopsy to rule out IBD Findings Moderate, generalized erythematous and granular mucosa with loss of vascular pattern in the terminal ileum; performed cold forceps biopsy to rule out IBD. Erythematous without ulcerations. Generalized erythematous and granular mucosa with loss of vascular pattern in the ascending colon; performed cold forceps biopsy to rule out IBD Generalized erythematous and granular mucosa with loss of vascular pattern in the transverse colon;performed cold forceps biopsy Severe, generalized granular mucosa with loss of vascular pattern that did not appear erythematous in the descending colon; performed cold forceps biopsy to rule out IBD Severe, generalized erythematous, granular and ulcerated mucosa with loss of vascular pattern in the rectosigmoid; performed cold forceps biopsy to rule out IBD. Linear ulcerations. Overall and in the view of perianal abscesses this is consistent with Crohns disease. FINAL DIAGNOSIS A. TERMINAL ILEUM BIOPSY: --CHRONIC ACTIVE ENTERITIS --GRANULOMA OR PYLORIC GLAND METAPLASIA ARE NOT IDENTIFIED B. COLON, ASCENDING COLON BIOPSY: --CHRONIC ACTIVE COLITIS --GRANULOMA OR DYSPLASIA ARE NOT IDENTIFIED C. COLON, TRANSVERSE COLON BIOPSY: --CHRONIC ACTIVE COLITIS WITH CRYPTITIS AND CRYPT ABSCESSES --GRANULOMA OR DYSPLASIA ARE NOT IDENTIFIED D. COLON, DESCENDING COLON BIOPSY: --CHRONIC ACTIVE COLITIS WITH CRYPTITIS AND CRYPT ABSCESSES --GRANULOMA OR DYSPLASIA ARE NOT IDENTIFIED E. COLON, SIGMOID COLON BIOPSY: --CHRONIC ACTIVE COLITIS --GRANULOMA OR DYSPLASIA ARE NOT IDENTIFIED F. RECTUM BIOPSY: --CHRONIC ACTIVE COLITIS --GRANULOMA OR DYSPLASIA ARE NOT IDENTIFIED ASSESSMENT / PLAN ASSESSMENT/PLAN: Sheri South is a 34 y.o. female with a past medical history of Klebsiella UTI, LLE cellulitis, and recent admission for necrotizing soft tissue infection of perineum s/p I&D, C. Diff infection (technically colonization as toxin was negative) and recent diagnosis of Crohn's disease and [id number] weeks who presented on 09/26/24 for worsening hematochezia. GI is consulted for Crohn's flare and hematochezia. Pt's worsening hematochezia and diarrhea in addition to EIMs (oral ulcers, erythema nodosum) are concerning for Chron's disease not well controlled with her current therapy. It is possible the pt mayjust need additional control of her initial inflammation while Humira is beginning to take effect. It is also possible that she may need a higher dosing of her Humira (weekly dosing instead of every two weeks). Recommendations: -Await stool studies -Start IV methylprednisolone 20mg q8 hours for 48-72 hours -If patient shows improvement of symptoms on IV steroids, plan to discharge with PO prednisone taper (starting at 40mg daily for one week, and then decreasing by 5mg every week) -Humira level pending -Can resume next Humira dose when pt returns home Patient was seen and discussed with Dr. Mann . Gastroenterology will continue to follow. During weekday hours of 7am-5pm please do not hesitate to contact me on Epic Chat or page [phone], ifthere are any further questions between the weekday hours of 7am-5pm. After hours, on weekends, and on holidays, [place] [phone]. Thank you. Cosigned by Boy Mann MD at 09/28/2024 7:21 AM EST Associated attestation - Boy Mann MD - 09/28/2024 7:21 AM EST I saw and evaluated the patient. I personally obtained the cordova and critical portions of the historyand physical exam or was physically present for cordova and critical portions performed by the resident/fellow. I reviewed the resident/fellow's documentation and discussed the patient with the resident/shaila negron. I agree with the resident/fellow's medical decision making as documented in the note with the exception/addition of the following: Unfortunately, now 14 weeks , she has not responded to induction therapy with adalimumab and has flaring Crohn's disease with oral aphthous erosions, erythema nodosum, and urgent bloody mucoid stools. She has responded well to corticosteroids in the past, so will attempt to control active disease with prednisone while continuing adalimumab. The hope is that, although the adalimumab did not control active disease, in combination with tapering prednisone, it may be effective for eventual maintenance control of disease. The adalimumab level drawn at week 4 after initiation will help us know if she will need to move to weekly adalimumab dosing. OK for diet. Dr. Payne will be consult attending starting 09/28/24. [facility] Work Phone: [phone]) 690-911501-09-2025 Consult note* Yoanna Do MD - 09/27/2024 2:21 PM ESTAssociated Order(s): IP CONSULT TO GASTROENTEROLOGY [facility] [place] INITIAL CONSULT NOTE Reason For Consult Crohn's flare, hematochezia SUBJECTIVE History Of Present Illness Sheri South is a 34 y.o. female with a past medical history of Klebsiella UTI, LLE cellulitis, and recent admission for necrotizing soft tissue infection of perineum s/p I&D, C. Diff infection (technically colonization as toxin was negative) and recent diagnosis of Crohn's disease and [id number] weeks who presented on 09/26/24 for worsening hematochezia. GI is consulted for Crohn's flare and hematochezia. She reports looser and more frequent Bms over the past 2-3 days. She also reports persistent blood in the stool. In addition to the 2-3 loose stools, she is going 3 or 4 additional times where she only passes gas and mucus. She endorses urgency and nocturnal symptoms. Furthermore, she notes oral ulcers for the past 2 weeks and presence of tender red bumps on her shins and calves. She also notes intermittent fevers; she had one 100.3F last week (resolved with tylenol), 09/26/24PM fever 102 (resolved with tylenol), 101F right before leaving for the ED which self resolved by the time she arrived to . She started her first Humira induction dose 08/30/24. Received second induction dose two weeks later and is due for her first maintance dose today. In the past, she was started on a 2month prednisonetaper 2023 and felt well within the first two days. She completed the taper 9 weeks ago. IBD hx Briefly, the patient initially presented to [facility] in August 2023 with abdominal pain,fatigue, dizziness, and bloody stools. Laboratory tests indicated elevated inflammatory markers (CRP 18.74, ESR 95), anemia (hemoglobin 9.7), and hypoalbuminemia (1.9). Imaging and a colonoscopy revealed mild shen- colitis, confirmed by biopsy to be chronic active colitis with varying degrees of severity throughout the colon. She was treated with prednisone and mesalamine, which initially alleviated her symptoms, but her condition worsened when the prednisone was tapered. In February 2024, the patient was readmitted with severe perineal pain, where a CT scan indicated necrotizing fasciitis of the pe rineum and a potential perianal fistula. A positive C. diff test led to treatment with PO vancomycin. In February 2024 had a perineal necrotizing soft tissue infection, and per the op note, this was actually an anal fissure abscess which gave concern that her IBD was actually crohn's and not UC. During outpt GI visit February 2024, patient had reported resolution of symptoms and was not having anydiarrhea or rectal bleeding. She was not on any steroids at the time. CRP was not elevated at 0.58,but her fecal calprotectin was elevated to 974. Her CBC also showed microcytic, hypochromic anemia consistent with ADRIEL. She subsequently obtained a colonoscopy in Apr 2024 which showed inflammation in the entire colon, worst in the rectosigmoid, along with involvement of the TI. Biopsies showed chronic active enteritis in the TI and chronic active colitis in all segments of the colon. During outpt Gi visit 05/24/24 she was having bloody diarrhea along with urgency and started on 2 month prednisone taper (starting at 40mg) with improvement of symptoms and decision was made to start Humira. She is currently getting it through a patient assistance program from the [employer] as the patient has community insurance ([email or web address]) and would not be able to afford expensive biologic medications. 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 Pt received her first induction dose 08/30/24. Review of Systems 12-point ROS has been reviewed and is negative, except if mentioned otherwise above. Past Medical History: Past Medical History: Diagnosis Date Crohn's disease (Multi) Home Medications Medications Prior to Admission Medication Sig Dispense Refill Last Dose/Taking acetaminophen (Tylenol) 325 mg tablet Take 2 tablets (650 mg) by mouth every 6 hours. adalimumab (Humira Pen) 40 mg/0.4 mL pen injector kit pen-injector Inject 1 Pen (40 mg) under the skin every 14 (fourteen) days. 2 each 11 adalimumab (Humira,CF, Pen [id number]) 80 mg/0.8 mL pen injector kit pen- injector adalimumab (Humira) dose instructions: On day 1, inject 160 mg under the skin. On day 15, inject 80 mg under skin. Change sites each time. take 160 mg (2 Pens) subcutaneous on day 0 then take 80 mg subcutaneous on day 15 3 each 0 budesonide (Uceris) 2 mg/actuation foam Insert 2 mg into the rectum once daily. 33.4 g 1 Surgical History: Past Surgical History: Procedure Laterality Date ABCESS DRAINAGE Buttocks ABDOMINAL SURGERY Allergies: Allergies Allergen Reactions Mesalamine Other Social History: Family History: No family history on file. EXAM Vitals: Vitals: 09/26/24 2120 09/27/24 0828 09/27/24 0955 09/27/24 1213 BP: 116/68 106/53 107/67 111/66 BP Location: Left arm Left arm Patient Position: Sitting Lying Lying Lying Pulse: (!) 116 90 95 Resp: 16 18 18 18 Temp: 36.7 C (98.1 F) 36.7 C (98.1 F) 36.6 C (97.9 F) TempSrc: Oral Temporal Temporal SpO2: 97% 100% (!) 95% 97% Weight: 95.3 kg (210 lb) Height: 1.6 m (5' 3) Failed to redirect to the Timeline version of the [employer] Smart[employer]. Intake/Output Summary (Last 24 hours) at 09/27/2024 1422 Last data filed at 09/27/2024 1300 Gross per 24 hour Intake -- Output 301 ml Net -301 ml Physical Exam General: well-developed, well-nourished, no acute distress, AAOx3 HEENT: EOM intact CV: regular rate and rhythm Pulm: normal respiratory effort, clear to auscultation bilaterally Abd: soft, nontender, nondistended Extremities: warm, no LE edema, scattered areas of tender erythema approx 1in in diameter located on bilateral shins and calves Neuro: moves all extremities equally, CN II - XII grossly intact Psych: normal mood and affect Skin: warm, dry, intact OBJECTIVE Medications Current Facility-Administered Medications: acetaminophen (Tylenol) tablet 975 mg, 975 mg, oral, q6h PRN, Kim Montelongo MD bisacodyl (Dulcolax) suppository 10 mg, 10 mg, rectal, Daily PRN, Kim Montelongo MD cyclobenzaprine (Flexeril) tablet 10 mg, 10 mg, oral, TID PRN, Kim Montelongo MD enoxaparin (Lovenox) syringe 40 mg, 40 mg, subcutaneous, q24h, Ari Max MD, 40 mg at 09/27/24 0818 hydrALAZINE (Apresoline) injection 5 mg, 5 mg, intravenous, Once PRN, Kim Montelongo MD labetaloL (Normodyne,Trandate) injection 20 mg, 20 mg, intravenous, Once PRN, Kim Montelongo MD lidocaine (Xylocaine) 10 mg/mL (1 %) injection 0.5 mL, 0.5 mL, subcutaneous, Once PRN, Kim Montelongo MD loperamide (Imodium) capsule 4 mg, 4 mg, oral, TID PRN, Kim Montelongo MD magnesium hydroxide (Milk of Magnesia) 400 mg/5 mL suspension 10 mL, 10 mL, oral, q24h PRN, Lolly Montelongo MD metoclopramide (Reglan) tablet 10 mg, 10 mg, oral, q6h PRN OR metoclopramide (Reglan) mg, 10 mg, intravenous, q6h PRN, Kim Montelongo MD NIFEdipine (Procardia) capsule 10 mg, 10 mg, oral, Once PRN, Kim Montelongo MD ondansetron (Zofran) tablet 4 mg, 4 mg, oral, q6h PRN OR ondansetron (Zofran) injection 4 mg, 4mg, intravenous, q6h PRN, Kim Montelongo MD polyethylene glycol (Glycolax, Miralax) packet 17 g, 17 g, oral, Daily PRN, Ari Max MD polyethylene glycol (Glycolax, Miralax) packet 17 g, 17 g, oral, BID PRN, Kim Montelongo MD vitamin (iron-folic) tablet 1 tablet, 1 tablet, oral, Daily, Kim Montelongo MD psyllium (Metamucil) 3.4 gram packet 1 packet, 1 packet, oral, Daily PRN, Kim Montelongo MD simethicone (Mylicon) chewable tablet 80 mg, 80 mg, oral, 4x daily PRN, Kim Montelongo MD Labs Labs: CBC RFP Lab Results Component Value Date WBC 10.6 09/27/2024 HGB 9.4 (L) 09/27/2024 HCT 28.5 (L) 09/27/2024 MCV 75 (L) 09/27/2024 PLT 335 09/27/2024 NEUTROABS 6.91 09/27/2024 Lab Results Component Value Date NA 130 (L) 09/27/2024 K 3.2 (L) 09/27/2024 CL 96 (L) 09/27/2024 CO2 24 09/27/2024 BUN 6 09/27/2024 CREATININE 0.56 09/27/2024 Lab Results Component Value Date MG 1.78 09/27/2024 PHOS 3.6 02/24/2024 CALCIUM 8.6 09/27/2024 ALBUMIN 3.0 (L) 09/27/2024 Hepatic Function ABG/VBG Lab Results Component Value Date ALT 13 09/27/2024 AST 14 09/27/2024 ALKPHOS 100 09/27/2024 Lab Results Component Value Date BILITOT 0.3 09/27/2024 BILIDIR 0.0 02/21/2024 Lab Results Component Value Date PROTIME 19.4 (H) 02/22/2024 APTT 31 02/22/2024 INR 1.7 (H) 02/22/2024 No results found for: NONUHFIRE, LACTATE Imaging CT ENTEROGRAPHY WITH IV CONTRAST; 06/13/2024 IMPRESSION: 1. Unremarkable small bowel including terminal ileal with intraluminal fecal material noted in the ascending colon. Bowel wall thickening, mucosal enhancement and hyperemia seen extending from proximal transverse colon all the way up to distal rectum, likely representing ulcerative colitis. Tissue diagnosis recommended. No evidence of bowel obstruction or stricture identified at current juncture. Comparison with outside prior study recommended. 2. Focal area of wall thickening of the anterior bladder wall with associated perivesicular fat stranding. Given the pancolitis described in previous colonoscopy reports, unable to completely exclude prior fistulization of the sigmoid colon with the bladder in this area. Comparison with outside prior imaging is strongly recommended. Additional considerations: Inflamed urachal remnant versus cystitis, correlate with urinalysis. 3. Right-sided nonobstructing nephrolithiasis. 4. Cholelithiasis without cholecystitis. 5. 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 However as per clinical need further evaluation with the serum IgG 4 level recommended. 6. Findings favored to represent postsurgical changes related to incision and drainage of the perianal region/left perineum. No loculated fluid collection. GI Procedures Cscope 04/26/24: Impression Moderate erythematous, granular mucosa with loss of vascular pattern in the terminal ileum; performed cold forceps biopsy to rule out IBD Erythematous, granular mucosa with loss of vascular pattern; performed cold forceps biopsies Severe granular mucosa with loss of vascular pattern in the descending colon; performed cold forceps biopsy to rule out IBD Severe erythematous, granular, ulcerated mucosa with loss of vascular pattern in the rectosigmoid; performed cold forceps biopsy to rule out IBD Findings Moderate, generalized erythematous and granular mucosa with loss of vascular pattern in the terminal ileum; performed cold forceps biopsy to rule out IBD. Erythematous without ulcerations. Generalized erythematous and granular mucosa with loss of vascular pattern in the ascending colon; performed cold forceps biopsy to rule out IBD Generalized erythematous and granular mucosa with loss of vascular pattern in the transverse colon;performed cold forceps biopsy Severe, generalized granular mucosa with loss of vascular pattern that did not appear erythematous in the descending colon; performed cold forceps biopsy to rule out IBD Severe, generalized erythematous, granular and ulcerated mucosa with loss of vascular pattern in the rectosigmoid; performed cold forceps biopsy to rule out IBD. Linear ulcerations. Overall and in the view of perianal abscesses this is consistent with Crohns disease. FINAL DIAGNOSIS A. TERMINAL ILEUM BIOPSY: --CHRONIC ACTIVE ENTERITIS --GRANULOMA OR PYLORIC GLAND METAPLASIA ARE NOT IDENTIFIED B. COLON, ASCENDING COLON BIOPSY: --CHRONIC ACTIVE COLITIS --GRANULOMA OR DYSPLASIA ARE NOT IDENTIFIED C. COLON, TRANSVERSE COLON BIOPSY: --CHRONIC ACTIVE COLITIS WITH CRYPTITIS AND CRYPT ABSCESSES --GRANULOMA OR DYSPLASIA ARE NOT IDENTIFIED D. COLON, DESCENDING COLON BIOPSY: --CHRONIC ACTIVE COLITIS WITH CRYPTITIS AND CRYPT ABSCESSES --GRANULOMA OR DYSPLASIA ARE NOT IDENTIFIED E. COLON, SIGMOID COLON BIOPSY: --CHRONIC ACTIVE COLITIS --GRANULOMA OR DYSPLASIA ARE NOT IDENTIFIED F. RECTUM BIOPSY: --CHRONIC ACTIVE COLITIS --GRANULOMA OR DYSPLASIA ARE NOT IDENTIFIED ASSESSMENT / PLAN ASSESSMENT/PLAN: Sheri South is a 34 y.o. female with a past medical history of Klebsiella UTI, LLE cellulitis, and recent admission for necrotizing soft tissue infection of perineum s/p I&D, C. Diff infection (technically colonization as toxin was negative) and recent diagnosis of Crohn's disease and weeks who presented on 09/26/24 for worsening hematochezia. GI is consulted for Crohn's flare and hematochezia. Pt's worsening hematochezia and diarrhea in addition to EIMs (oral ulcers, erythema nodosum) are concerning for Chron's disease not well controlled with her current therapy. It is possible the pt mayjust need additional control of her initial inflammation while Humira is beginning to take effect. It is also possible that she may need a higher dosing of her Humira (weekly dosing instead of every two weeks). Recommendations: -Await stool studies -Start IV methylprednisolone 20mg q8 hours for 48-72 hours -If patient shows improvement of symptoms on IV steroids, plan to discharge with PO prednisone taper (starting at 40mg daily for one week, and then decreasing by 5mg every week) -Humira level pending -Can resume next Humira dose when pt returns home Patient was seen and discussed with Dr. Mann . Gastroenterology will continue to follow. During weekday hours of 7am-5pm please do not hesitate to contact me on [employer] Chat or page [phone], ifthere are any further questions between the weekday hours of 7am-5pm. After hours, on weekends, and on holidays, [place] [phone]. Thank you. Cosigned by Boy Mann MD at 09/28/2024 7:21 AM EST Associated attestation - Boy Mann MD - 09/28/2024 7:21 AM EST I saw and evaluated the patient. I personally obtained the cordvoa and critical portions of the historyand physical exam or was physically present for cordova and critical portions performed by the resident/fellow. I reviewed the resident/fellow's documentation and discussed the patient with the resident/f jamil. I agree with the resident/fellow's medical decision making as documented in the note with the exception/addition of the following: Unfortunately, now 14 weeks , she has not responded to induction therapy with adalimumab and has flaring Crohn's disease with oral aphthous erosions, erythema nodosum, and urgent bloody mucoid stools. She has responded well to corticosteroids in the past, so will attempt to control active disease with prednisone while continuing adalimumab. The hope is that, although the adalimumab did not control active disease, in combination with tapering prednisone, it may be effective for eventual maintenance control of disease. The adalimumab level drawn at week 4 after initiation will help us know if she will need to move to weekly adalimumab dosing. OK for diet. Dr. Payne will be consult attending starting 09/28/24. * Kim Montelongo MD - 09/27/2024 7:42 AM EST MFM Consult Reason for Consult: Chron's Flare HPI: Sheri South is a 34 y.o. at approximately 13.6wga (LMP 10/4) with a PMH notable for Klebsiella UTI, LLE cellulitis, necrotizing soft tissue infection of perineum s/p I&D, C. Diff infection (technically colonization as toxin was negative) and recent diagnosis of inflammatory bowel disease (suspected Crohn's disease) in May 2024. Patient presented through the [facility] ED for bloody s tools x2 weeks. Patient states she is currently on Humira, but has only received 3 injections thus far (last 2 weeks ago) without improvement in symptoms. States that approximately 2 weeks ago, she began experiencing bloody diarrhea 3-6x per day along with nausea and vomiting episodes occurring 2-3x per day. Continues to have an appetite and is generally able to tolerate PO intake. States she had fevers at home.Patient additionally with cold sores to mouth for which she uses Abreva and bumps on legs. She states current sx feel like a Chron's flare, however, this is not the worst flare that she has ever experienced. Obstetrically, patient is without cramping, vaginal bleeding, or LOF. Has not yet felt movement. Patient has not yet established care this . Notables - H/o CS x2 Problem List No episode was linked to this visit. Obstetrical History OB History 1 Para Term AB Living SAB IAB Ectopic Multiple Live Births Past Medical History Past Medical History: Diagnosis Date Crohn's disease (Multi) Past Surgical History Past Surgical History: Procedure Laterality Date ABCESS DRAINAGE Buttocks ABDOMINAL SURGERY Social History Social History Socioeconomic History Marital status: Spouse name: Not on file Number of children: Not on file Years of education: Not on file Highest education level: Not on file Occupational History Not on file Tobacco Use Smoking status: Never Smokeless tobacco: Never Vaping Use Vaping status: Never Used Substance and Sexual Activity Alcohol use: Never Drug use: Never Sexual activity: Defer Other Topics Concern Not on file Social History Narrative Not on file Social Drivers of Health Financial Resource Strain: Patient Declined (09/27/2024) Overall Financial Resource Strain (CARDIA) Difficulty of Paying Living Expenses: Patient declined Food Insecurity: No Food Insecurity (09/27/2024) Hunger Vital Sign Worried About Running Out of Food in the Last Year: Never true Ran Out of Food in the Last Year: Never true Transportation Needs: No Transportation Needs (09/27/2024) PRAPARE - Transportation Lack of Transportation (Medical): No Lack of Transportation (Non-Medical): No Physical Activity: Sufficiently Active (09/27/2024) Exercise Vital Sign Days of Exercise per Week: 5 days Minutes of Exercise per Session: 60 min Stress: No Stress Concern Present (02/22/2024) [employer] [place] [employer] - Occupational Stress Questionnaire Feeling of Stress : Only a little Social Connections: Not on file Intimate Partner Violence: Not At Risk (09/27/2024) Humiliation, Afraid, Rape, and Kick questionnaire Fear of Current or Ex-Partner: No Emotionally Abused: No Physically Abused: No Sexually Abused: No Allergies Allergies Allergen Reactions Mesalamine Other Medications Medications Prior to Admission Medication Sig Dispense Refill Last Dose/Taking acetaminophen (Tylenol) 325 mg tablet Take 2 tablets (650 mg) by mouth every 6 hours. adalimumab (Humira Pen) 40 mg/0.4 mL pen injector kit pen-injector Inject 1 Pen (40 mg) under the skin every 14 (fourteen) days. 2 each 11 adalimumab (Humira,CF, Pen [id number]) 80 mg/0.8 mL pen injector kit pen- injector adalimumab (Humira) dose instructions: On day 1, inject 160 mg under the skin. On day 15, inject 80 mg under skin. Change sites each time. take 160 mg (2 Pens) subcutaneous on day 0 then take 80 mg subcutaneous on day 15 3 each 0 budesonide (Uceris) 2 mg/actuation foam Insert 2 mg into the rectum once daily. 33.4 g 1 OBJECTIVE: BP 111/66 (Patient Position: Lying) Pulse 95 Temp 36.6 C (97.9 F) (Temporal) Resp 18 Ht 1.6m (5' 3) Wt 95.3 kg (210 lb) LMP 03/22/2024 (Approximate) SpO2 97% BMI 37.20 kg/m Temp Min: 36.6 C (97.9 F) Max: 36.7 C (98.1 F) Pulse Min: 90 Max: 116 BP Min: 106/53 Max: 116/68 Physical exam: General: AAOx3, No acute distress Cardiovascular: Warm and well perfused Respiratory: Normal respiratory effort Abdominal: Soft, gravid, non-tender, no rebound or guarding, no palpable contractions Back: No CVA tenderness Extremities: Warm, well perfused, no edema, no calf tenderness. Red spots present Pelvic: johanna-anal fistulae without erythema, drainage + FHT with POCUS in the ED with IUP Labs: Results for orders placed or performed during the hospital encounter of 09/27/24 (from the past 24 hours) CBC and Auto Differential Result Value Ref Range WBC 10.6 4.4 - 11.3 x10*3/uL nRBC 0.0 0.0 - 0.0 /100 WBCs RBC 3.80 (L) 4.00 - 5.20 x10*6/uL Hemoglobin 9.4 (L) 12.0 - 16.0 g/dL Hematocrit 28.5 (L) 36.0 - 46.0 % MCV 75 (L) 80 - 100 fL MCH 24.7 (L) 26.0 - 34.0 pg MCHC 33.0 32.0 - 36.0 g/dL RDW 13.4 11.5 - 14.5 % Platelets 335 150 - 450 x10*3/uL Neutrophils % 65.3 40.0 - 80.0 % Immature Granulocytes %, Automated 0.6 0.0 - 0.9 % Lymphocytes % 23.5 13.0 - 44.0 % Monocytes % 9.6 2.0 - 10.0 % Eosinophils % 0.8 0.0 - 6.0 % Basophils % 0.2 0.0 - 2.0 % Neutrophils Absolute 6.91 1.20 - 7.70 x10*3/uL Immature Granulocytes Absolute, Automated 0.06 0.00 - 0.70 x10*3/uL Lymphocytes Absolute 2.48 1.20 - 4.80 x10*3/uL Monocytes Absolute 1.01 (H) 0.10 - 1.00 x10*3/uL Eosinophils Absolute 0.08 0.00 - 0.70 x10*3/uL Basophils Absolute 0.02 0.00 - 0.10 x10*3/uL Comprehensive metabolic panel Result Value Ref Range Glucose 105 (H) 74 - 99 mg/dL Sodium 130 (L) 136 - 145 mmol/L Potassium 3.2 (L) 3.5 - 5.3 mmol/L Chloride 96 (L) 98 - 107 mmol/L Bicarbonate 24 21 - 32 mmol/L Anion Gap 13 10 - 20 mmol/L Urea Nitrogen 6 6 - 23 mg/dL Creatinine 0.56 0.50 - 1.05 mg/dL eGFR >90 >60 mL/min/1.73m*2 Calcium 8.6 8.6 - 10.6 mg/dL Albumin 3.0 (L) 3.4 - 5.0 g/dL Alkaline Phosphatase 100 33 - 110 U/L Total Protein 7.3 6.4 - 8.2 g/dL AST 14 9 - 39 U/L Bilirubin, Total 0.3 0.0 - 1.2 mg/dL ALT 13 7 - 45 U/L Sedimentation rate, automated Result Value Ref Range Sedimentation Rate 113 (H) 0 - 20 mm/h C-reactive protein Result Value Ref Range C-Reactive Protein 22.16 (H) <1.00 mg/dL Magnesium Result Value Ref Range Magnesium 1.78 1.60 - 2.40 mg/dL Ferritin Result Value Ref Range Ferritin 164 (H) 8 - 150 ng/mL Iron and TIBC Result Value Ref Range Iron <10 (L) 35 - 150 ug/dL UIBC 250 110 - 370 ug/dL TIBC % Saturation Type and Screen Result Value Ref Range ABO TYPE AB Rh TYPE POS ANTIBODY SCREEN NEG Urinalysis with Reflex Culture and Microscopic Result Value Ref Range Color, Urine Light-Yellow Light-Yellow, Yellow, Dark-Yellow Appearance, Urine Clear Clear Specific [place], Urine 1.008 1.005 - 1.035 pH, Urine 6.0 5.0, 5.5, 6.0, 6.5, 7.0, 7.5, 8.0 Protein, Urine NEGATIVE NEGATIVE, 10 (TRACE), 20 (TRACE) mg/dL Glucose, Urine Normal Normal mg/dL Blood, Urine 0.03 (TRACE) (A) NEGATIVE Ketones, Urine NEGATIVE NEGATIVE mg/dL Bilirubin, Urine NEGATIVE NEGATIVE Urobilinogen, Urine Normal Normal mg/dL Nitrite, Urine NEGATIVE NEGATIVE Leukocyte Esterase, Urine NEGATIVE NEGATIVE Urinalysis Microscopic Result Value Ref Range WBC, Urine 1-5 1-5, NONE /HPF RBC, Urine 1-2 NONE, 1-2, 3-5 /HPF Squamous Epithelial Cells, Urine 1-9 (SPARSE) Reference range not established. /HPF Vitamin B12 Result Value Ref Range Vitamin B12 1,037 (H) 211 - 911 pg/mL Folate Result Value Ref Range Folate, Serum 23.5 >5.0 ng/mL ASSESSMENT AND PLAN: Sheri South is a 34 y.o. at approximately 13.6wga (LMP 06/22) with a PMH notable for Klebsiella UTI, LLE cellulitis, necrotizing soft tissue infection of perineum s/p I&D, C. Diff infection (technically colonization as toxin was negative) and recent diagnosis of inflammatory bowel disease (suspected Crohn's disease) in May 2024 presenting with Chron's flare. Chron's Flare Patient with history of Chron's, diagnosed in May 2024. Started on Mesalamine with worsening symptoms, therefore discontinued. In February 2024, patient had perineal necrotizing soft tissue infection, concerning for an anal fissure abscess. 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 Biopsies showed chronic active enteritis in the TI and chronic active colitis in all segments of the colon. Patient now with johanna-anal draining fistulae. - Patient started on Humira 08/30/2024, has since taken 3 injections with no improvement - Now with 2wk history or worsening Chron's symptoms - Reports fever at home, afebrile here. VSS - Labs in ED notable for elevated ESR to 113 and CRP to 22.16; calprotectin pending - GI consulted & following. Recommendations: Start IV methylprednisolone 20mg q8 hours for the next 48-72 hours. If she responds well, we will plan to send her on a PO steroid taper (will outline in note) and she should continue to take her humira when she goes home (with plans to see if we can get her to a once a week dosing of the Humira instead of every two weeks). - Reviewed that steroids are safe in - Await stool studies - Continue supportive management including PRN Tylenol, Flexeril, Imodium. - Daily lytes ordered in setting of diarrhea. Replete as needed status: - (+) FHT on admission. Will obtain at discharge or PRN - No formal US or PNC yet this ; will establish prior to DC - [facility] order placed for dating & NT scan Dispo: For inpatient admission Pt seen and discussed with MFM Attending, Titi Khanna MD PGY-II, Obstetrics & Gynecology [facility] Assessment & Plan Crohn disease of upper gastrointestinal tract Cosigned by Lory Winters MD at 09/28/2024 7:55 AM EST Associated attestation - Lory Winters MD - 09/28/2024 7:55 AM EST I saw and evaluated the patient. I personally obtained the cordova and critical portions of the historyand physical exam or was physically present for cordova and critical portions performed by the resident/fellow. I reviewed the resident/fellow's documentation and discussed the patient with the resident/shaila negron. I agree with the resident/fellow's medical decision making as documented in the note with the exception/addition of the following: GI appreciated, reviewed reassurance regarding steroids in , endoscopy also reasonable at this gestational age if it becomes indicated at a future point. [facility] Phone: [phone]) 270-159001-09-2025 Plan of care note* Care Plan - Valentine Harrell RN - 09/27/2024 1:56 PM EST Problem: Antepartum Goal: Maintain as long as maternal and/or condition is stable Outcome: Progressing Goal: Avoid/minimize constipation Outcome: Progressing Goal: No decrease in circulation/VTE Outcome: Progressing Goal: FHR remains reassuring Outcome: Progressing Goal: Minimize anxiety/maximize coping Outcome: Progressing Problem: Safety - Adult Goal: Free from fall injury Outcome: Progressing Problem: Discharge Planning Goal: Discharge to home or other facility with appropriate resources Outcome: Progressing Problem: Chronic Conditions and Co-morbidities Goal: Patient's chronic conditions and co-morbidity symptoms are monitored and maintained or improved Outcome: Progressing The patient's goals for the shift include get medication to help my flare up. VSS and pt. Has no cramps or VB.I sent stool for c-diff.Pt. has had 2 liquid,bloody stools today.Per MFM pt. May eat food.Stable. [facility] Work Phone: [phone] 250-377601-09-2025 Consult note* Kim Montelongo MD - 09/27/2024 7:42 AM EST [facility] Consult Reason for Consult: Chron's Flare HPI: Sheri South is a 34 y.o. at approximately 13.6wga (LMP 10/4) with a PMH notable for Klebsiella UTI, LLE cellulitis, necrotizing soft tissue infection of perineum s/p I&D, C. Diff infection (technically colonization as toxin was negative) and recent diagnosis of inflammatory bowel disease (suspected Crohn's disease) in May 2024. Patient presented through the [facility] ED for bloody s tools x2 weeks. Patient states she is currently on Humira, but has only received 3 injections thus far (last 2 weeks ago) without improvement in symptoms. States that approximately 2 weeks ago, she began experiencing bloody diarrhea 3-6x per day along with nausea and vomiting episodes occurring 2-3x per day. Continues to have an appetite and is generally able to tolerate PO intake. States she had fevers at home.Patient additionally with cold sores to mouth for which she uses Abreva and bumps on legs. She states current sx feel like a Chron's flare, however, this is not the worst flare that she has ever experienced. Obstetrically, patient is without cramping, vaginal bleeding, or LOF. Has not yet felt movement. Patient has not yet established care this . Notables - H/o CS x2 Problem List No episode was linked to this visit. Obstetrical History OB History 1 Para Term AB Living SAB IAB Ectopic Multiple Live Births Past Medical History Past Medical History: Diagnosis Date Crohn's disease (Multi) Past Surgical History Past Surgical History: Procedure Laterality Date ABCESS DRAINAGE Buttocks ABDOMINAL SURGERY Social History Social History Socioeconomic History Marital status: Spouse name: Not on file Number of children: Not on file Years of education: Not on file Highest education level: Not on file Occupational History Not on file Tobacco Use Smoking status: Never Smokeless tobacco: Never Vaping Use Vaping status: Never Used Substance and Sexual Activity Alcohol use: Never Drug use: Never Sexual activity: Defer Other Topics Concern Not on file Social History Narrative Not on file Social Drivers of Health Financial Resource Strain: Patient Declined (09/27/2024) Overall Financial Resource Strain (CARDIA) Difficulty of Paying Living Expenses: Patient declined Food Insecurity: No Food Insecurity (09/27/2024) Hunger Vital Sign Worried About Running Out of Food in the Last Year: Never true Ran Out of Food in the Last Year: Never true Transportation Needs: No Transportation Needs (09/27/2024) PRAPARE - Transportation Lack of Transportation (Medical): No Lack of Transportation (Non-Medical): No Physical Activity: Sufficiently Active (09/27/2024) Exercise Vital Sign Days of Exercise per Week: 5 days Minutes of Exercise per Session: 60 min Stress: No Stress Concern Present (02/22/2024) [employer] [employer] - Occupational Stress Questionnaire Feeling of Stress : Only a little Social Connections: Not on file Intimate Partner Violence: Not At Risk (09/27/2024) Humiliation, Afraid, Rape, and Kick questionnaire Fear of Current or Ex-Partner: No Emotionally Abused: No Physically Abused: No Sexually Abused: No Allergies Allergies Allergen Reactions Mesalamine Other Medications Medications Prior to Admission Medication Sig Dispense Refill Last Dose/Taking acetaminophen (Tylenol) 325 mg tablet Take 2 tablets (650 mg) by mouth every 6 hours. adalimumab (Humira Pen) 40 mg/0.4 mL pen injector kit pen-injector Inject 1 Pen (40 mg) under the skin every 14 (fourteen) days. 2 each 11 adalimumab (Humira,CF, Pen [id number]) 80 mg/0.8 mL pen injector kit pen- injector adalimumab (Humira) dose instructions: On day 1, inject 160 mg under the skin. On day 15, inject 80 mg under skin. Change sites each time. take 160 mg (2 Pens) subcutaneous on day 0 then take 80 mg subcutaneous on day 15 3 each 0 budesonide (Uceris) 2 mg/actuation foam Insert 2 mg into the rectum once daily. 33.4 g 1 OBJECTIVE: BP 111/66 (Patient Position: Lying) Pulse 95 Temp 36.6 C (97.9 F) (Temporal) Resp 18 Ht 1.6m (5' 3) Wt 95.3 kg (210 lb) LMP 03/22/2024 (Approximate) SpO2 97% BMI 37.20 kg/m Temp Min: 36.6 C (97.9 F) Max: 36.7 C (98.1 F) Pulse Min: 90 Max: 116 BP Min: 106/53 Max: 116/68 Physical exam: General: AAOx3, No acute distress Cardiovascular: Warm and well perfused Respiratory: Normal respiratory effort Abdominal: Soft, gravid, non-tender, no rebound or guarding, no palpable contractions Back: No CVA tenderness Extremities: Warm, well perfused, no edema, no calf tenderness. Red spots present Pelvic: johanna-anal fistulae without erythema, drainage + FHT with POCUS in the ED with IUP Labs: Results for orders placed or performed during the hospital encounter of 09/27/24 (from the past 24 hours) CBC and Auto Differential Result Value Ref Range WBC 10.6 4.4 - 11.3 x10*3/uL nRBC 0.0 0.0 - 0.0 /100 WBCs RBC 3.80 (L) 4.00 - 5.20 x10*6/uL Hemoglobin 9.4 (L) 12.0 - 16.0 g/dL Hematocrit 28.5 (L) 36.0 - 46.0 % MCV 75 (L) 80 - 100 fL MCH 24.7 (L) 26.0 - 34.0 pg MCHC 33.0 32.0 - 36.0 g/dL RDW 13.4 11.5 - 14.5 % Platelets 335 150 - 450 x10*3/uL Neutrophils % 65.3 40.0 - 80.0 % Immature Granulocytes %, Automated 0.6 0.0 - 0.9 % Lymphocytes % 23.5 13.0 - 44.0 % Monocytes % 9.6 2.0 - 10.0 % Eosinophils % 0.8 0.0 - 6.0 % Basophils % 0.2 0.0 - 2.0 % Neutrophils Absolute 6.91 1.20 - 7.70 x10*3/uL Immature Granulocytes Absolute, Automated 0.06 0.00 - 0.70 x10*3/uL Lymphocytes Absolute 2.48 1.20 - 4.80 x10*3/uL Monocytes Absolute 1.01 (H) 0.10 - 1.00 x10*3/uL Eosinophils Absolute 0.08 0.00 - 0.70 x10*3/uL Basophils Absolute 0.02 0.00 - 0.10 x10*3/uL Comprehensive metabolic panel Result Value Ref Range Glucose 105 (H) 74 - 99 mg/dL Sodium 130 (L) 136 - 145 mmol/L Potassium 3.2 (L) 3.5 - 5.3 mmol/L Chloride 96 (L) 98 - 107 mmol/L Bicarbonate 24 21 - 32 mmol/L Anion Gap 13 10 - 20 mmol/L Urea Nitrogen 6 6 - 23 mg/dL Creatinine 0.56 0.50 - 1.05 mg/dL eGFR >90 >60 mL/min/1.73m*2 Calcium 8.6 8.6 - 10.6 mg/dL Albumin 3.0 (L) 3.4 - 5.0 g/dL Alkaline Phosphatase 100 33 - 110 U/L Total Protein 7.3 6.4 - 8.2 g/dL AST 14 9 - 39 U/L Bilirubin, Total 0.3 0.0 - 1.2 mg/dL ALT 13 7 - 45 U/L Sedimentation rate, automated Result Value Ref Range Sedimentation Rate 113 (H) 0 - 20 mm/h C-reactive protein Result Value Ref Range C-Reactive Protein 22.16 (H) <1.00 mg/dL Magnesium Result Value Ref Range Magnesium 1.78 1.60 - 2.40 mg/dL Ferritin Result Value Ref Range Ferritin 164 (H) 8 - 150 ng/mL Iron and TIBC Result Value Ref Range Iron <10 (L) 35 - 150 ug/dL UIBC 250 110 - 370 ug/dL TIBC % Saturation Type and Screen Result Value Ref Range ABO TYPE AB Rh TYPE POS ANTIBODY SCREEN NEG Urinalysis with Reflex Culture and Microscopic Result Value Ref Range Color, Urine Light-Yellow Light-Yellow, Yellow, Dark-Yellow Appearance, Urine Clear Clear Specific [place], Urine 1.008 1.005 - 1.035 pH, Urine 6.0 5.0, 5.5, 6.0, 6.5, 7.0, 7.5, 8.0 Protein, Urine NEGATIVE NEGATIVE, 10 (TRACE), 20 (TRACE) mg/dL Glucose, Urine Normal Normal mg/dL Blood, Urine 0.03 (TRACE) (A) NEGATIVE Ketones, Urine NEGATIVE NEGATIVE mg/dL Bilirubin, Urine NEGATIVE NEGATIVE Urobilinogen, Urine Normal Normal mg/dL Nitrite, Urine NEGATIVE NEGATIVE Leukocyte Esterase, Urine NEGATIVE NEGATIVE Urinalysis Microscopic Result Value Ref Range WBC, Urine 1-5 1-5, NONE /HPF RBC, Urine 1-2 NONE, 1-2, 3-5 /HPF Squamous Epithelial Cells, Urine 1-9 (SPARSE) Reference range not established. /HPF Vitamin B12 Result Value Ref Range Vitamin B12 1,037 (H) 211 - 911 pg/mL Folate Result Value Ref Range Folate, Serum 23.5 >5.0 ng/mL ASSESSMENT AND PLAN: Sheri South is a 34 y.o. at approximately 13.6wga (LMP 10) with a PMH notable for Klebsiella UTI, LLE cellulitis, necrotizing soft tissue infection of perineum s/p I&D, C. Diff infection (technically colonization as toxin was negative) and recent diagnosis of inflammatory bowel disease (suspected Crohn's disease) in May 2024 presenting with Chron's flare. Chron's Flare Patient with history of Chron's, diagnosed in May 2024. Started on Mesalamine with worsening symptoms, therefore discontinued. In February 2024, patient had perineal necrotizing soft tissue infection, concerning for an anal fissure abscess. 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 Biopsies showed chronic active enteritis in the TI and chronic active colitis in all segments of the colon. Patient now with johanna-anal draining fistulae. - Patient started on Humira 08/30/2024, has since taken 3 injections with no improvement - Now with 2wk history or worsening Chron's symptoms - Reports fever at home, afebrile here. VSS - Labs in ED notable for elevated ESR to 113 and CRP to 22.16; calprotectin pending - GI consulted & following. Recommendations: Start IV methylprednisolone 20mg q8 hours for the next 48-72 hours. If she responds well, we will plan to send her on a PO steroid taper (will outline in note) and she should continue to take her humira when she goes home (with plans to see if we can get her to a once a week dosing of the Humira instead of every two weeks). - Reviewed that steroids are safe in - Await stool studies - Continue supportive management including PRN Tylenol, Flexeril, Imodium. - Daily lytes ordered in setting of diarrhea. Replete as needed status: - (+) FHT on admission. Will obtain at discharge or PRN - No formal US or PNC yet this ; will establish prior to DC - [facility] order placed for dating & NT scan Dispo: For inpatient admission Pt seen and discussed with MFM Attending, Titi Khanna MD PGY-II, Obstetrics & Gynecology [facility] Assessment & Plan Crohn disease of upper gastrointestinal tract Cosigned by Lory Winters MD at 09/28/2024 7:55 AM EST Associated attestation - Lory Winters MD - 09/28/2024 7:55 AM EST I saw and evaluated the patient. I personally obtained the cordova and critical portions of the historyand physical exam or was physically present for cordova and critical portions performed by the resident/fellow. I reviewed the resident/fellow's documentation and discussed the patient with the resident/shaila negron. I agree with the resident/fellow's medical decision making as documented in the note with the exception/addition of the following: GI appreciated, reviewed reassurance regarding steroids in , endoscopy also reasonable at this gestational age if it becomes indicated at a future point. [facility] Work Phone: [phone] Emergency department Note* Jak Lange MD - 09/26/2024 8:52 PM EST History of Present Illness History provided by: Patient Limitations to History: None External Records Reviewed with Brief Summary: Note from patient's GI fellow who recommended presentation to [facility] with expectation for admission with fistulizing Crohn's disease HPI: Sheri South is a 34 y.o. female with medical history notable for Crohn's disease presenting today with concern for a Crohn's flare. She is a 14-week G4, P2. States that she has been having bloody bowel movements for about 2 weeks which worsened within the last couple of days having a few bowel movements that were ashley blood with little to no stool. She is also been feeling nauseous but denies any dizziness, weakness, numbness, tingling Patient is still able to eat and able to hold down fluids, does note that this vomiting has been ongoing throughout her . Denies pain in the abdomen Notes that she was having some fevers over the last couple of days measured to 102 and breaking with Tylenol. Denies CP/SOB Patient also notes some light vaginal spotting but states that this is not reason for presentation,but she did notice it while in the waiting room today Physical Exam Triage vitals: T 36.7 C (98.1 F) HR (!) 116 BP 116/68 RR 16 O2 97 % None (Room air) General: Awake, alert, in no acute distress Eyes: Gaze conjugate. No scleral icterus or injection, PERRL HENT: Normo-cephalic, atraumatic. No stridor CV: Regular rate, regular rhythm. Radial and DP pulses 2+ bilaterally Resp: Breathing non-labored, speaking in full sentences. Clear to auscultation bilaterally Chest: non-tender GI: Soft, gravid, non-tender. No rebound or guarding. : Deferred MSK/Extremities: No gross bony deformities. Moving all extremities Skin: Warm. Appropriate color Neuro: Alert. Orientedx4. Face symmetric. Speech is fluent. Gross strength and sensation intact in b/l UE and LEs Psych: Appropriate mood and affect Medical Decision Making & ED Course Medical Decision Makin y.o. female with above history and physical notable for well-appearing female with history consistent with a Crohn's flare. Lab workup was notable for significantly elevated CRP as well as anelevated ESR. Calprotectin was sent but not yet resulted at the time of admission. Additionally patient's heart rate was elevated, suspect that this may be partially related to but more like ly related to a fluid deficit, for this reason I repleted fluids with 1 L of LR. Changes in electrolytes corroborated this. Hemoglobin was checked and found to be at 9.4. Somewhat decreased but not critically. Patient's overall history consistent with Crohn's flare, having fevers associated with illness, decreased hemoglobin in an otherwise healthy 34-year-old, and dehydration significant enough to elevateheart rate are concerning enough to warrant an admission. This is further escalated as this [facility] and I do have some suspicion that they may have difficulty obtaining additional follow-up. In addition to this her outpatient fellow notes that this is a more complex form of Crohn's disease (fistulizing), and this note also recommends admission. Patient does not have any evidence of other acute medical issues and there is a risk to fetus if imaging of the abdomen is obtained. Will not obtain CT of the abdomen. All symptoms are appropriate for and/or Crohn's flare. For patient's vaginal spotting there is some concern but is appropriate to continue to monitor for any changes, will not push patient to undergo examination at this time. Because of withspotting, patient may benefit from OB consult while admitted to the hospital. Patient continues to have bowel movements so I have little suspicion for condition such as SBO. No pain on examination so without signs of peritonitis I am not concerned that this is a surgical problem nor does it warrant CT scan as the benefits do not outweigh the risks Because of the symptoms and because patient has not had confirmatory ultrasound yet. Performed POCUS of the abdomen to confirm IUP. IUP was confirmed and activity is present. cardiac activity is identified but due to motion was not able to be appropriately measured. No acute concerns for fetus at this time other than that treatment for patient would be of greatest benefit to fetus ED Course: Diagnoses as of 09/27/24754 Gastrointestinal Crohn's disease Exacerbation of Crohn's disease with complication (Multi) --- Social Determinants of Health which Significantly Impact Care: None identified EKG Independent Interpretation: EKG not obtained The patient was discussed with the following consultants/services: Hospitalist/Admitting Provider who accepted the patient for admission Independent Result Review and Interpretation: Relevant laboratory and radiographic results were reviewed and independently interpreted by myself. As necessary, they are commented on in the ED Course. Chronic conditions affecting the patient's care: As documented above in MDM Care Considerations: As documented above in MDM Disposition As a result of their workup, the patient will require admission to the hospital. The patient was informed of her diagnosis. The patient was given the opportunity to ask questions and I answered them.The patient agreed to be admitted to the hospital. Procedures Procedures This was a shared visit with an ED attending. The patient was seen and discussed with the ED attending Jak Lange MD Emergency Medicine Jak Lange MD Resident 09/27/24 0644 Jak Lange MD Resident 09/27/24 0755 Cosigned by Margarito Berkowitz MD at 09/27/2024 11:42 PM EST Associated attestation - Margarito Berkowitz MD - 09/27/2024 11:42 PM EST The patient was seen by the resident/fellow. I have personally performed a substantive portion of the encounter. I have seen and examined the patient; agree with the workup, evaluation, MDM, management and diagnosis. The care plan has been discussed with the resident/fellow; I have reviewed the resident/fellow s note and agree with the documented findings with the exception/addition of the following: Patient with hx crohn's disease, also currently 14 weeks GA presenting with bloody stools, worsening over the last several days. Denies any vaginal discharge/ bleeding. Referred to ED by GIfor admission/ further evaluation. Labs demonstrating elevated inflammatory markers, mild microcytic anemia but HDS, given HGB >7 no indication for transfusion currently. Benign abdominal exam sugg esting against peritonitic process meriting advanced imaging of the abdomen especially in setting of early risk of radiation exposure currently outweighs benefit of CT imaging. Bedside US shows IUP with good movement, difficulty assessing HR due to movement as well as patients body habitus. GI consulted agrees with admission, admitted in stable condition for further evaluation and management of crohn's flare. * Andre Armstrong RN - 09/26/2024 8:52 PM EST Patient is 14 weeks DD March 29, 2025. Patient presents to the ED with a complaint of having bloody stools in the last 2 weeks, has PMH of Chron's disease. Patient has started having more bloody stools. She is having 2 to 3 bowel movements per day and in the last 2 days, her stools are looser and she apparently couldn't make it in time to the bathroom yesterday and had a bowel accident. In addition to the 2-3 loose stools, she is also going 3 or 4 additional times where she only passes gas and mucus. She is having urgency. Last week, she had a low-grade fever of 100.3. She apparently took2 Tylenols and this broke the fever and she did not have one until last night when she had a high fever of 102 F which broke after taking another 2 Tylenols. Possible, sinus infections. Her appetite has not been good for several weeks. Denies any n/v and no abdominal cramping. In addition, she has noticed cold sores in her mouth and reddish bumps on her legs. documented in this [place] [facility] Work Phone: 1(280) 476-802701-08-2025 Emergency department Triage note* Andre Armstrong RN - 09/26/2024 8:52 PM EST Patient is 14 weeks DD March 29, 2025. Patient presents to the ED with a complaint of having bloody stools in the last 2 weeks, has PMH of Chron's disease. Patient has started having more bloody stools. She is having 2 to 3 bowel movements per day and in the last 2 days, her stools are looser and she apparently couldn't make it in time to the bathroom yesterday and had a bowel accident. In addition to the 2-3 loose stools, she is also going 3 or 4 additional times where she only passes gas and mucus. She is having urgency. Last week, she had a low-grade fever of 100.3. She apparently took2 Tylenols and this broke the fever and she did not have one until last night when she had a high fever of 102 F which broke after taking another 2 Tylenols. Possible, sinus infections. Her appetite has not been good for several weeks. Denies any n/v and no abdominal cramping. In addition, she has noticed cold sores in her mouth and reddish bumps on her legs. [facility]01-08-2025 Physician Emergency department Note * Jak Lange MD - 09/26/2024 8:52 PM EST History of Present Illness History provided by: Patient Limitations to History: None External Records Reviewed with Brief Summary: Note from patient's GI fellow who recommended presentation to [facility] with expectation for admission with fistulizing Crohn's disease HPI: Sheri South is a 34 y.o. female with medical history notable for Crohn's disease presenting today with concern for a Crohn's flare. She is a 14-week G4, P2. States that she has been having bloody bowel movements for about 2 weeks which worsened within the last couple of days having a few bowel movements that were ashley blood with little to no stool. She is also been feeling nauseous but denies any dizziness, weakness, numbness, tingling Patient is still able to eat and able to hold down fluids, does note that this vomiting has been ongoing throughout her . Denies pain in the abdomen Notes that she was having some fevers over the last couple of days measured to 102 and breaking with Tylenol. Denies CP/SOB Patient also notes some light vaginal spotting but states that this is not reason for presentation,but she did notice it while in the waiting room today Physical Exam Triage vitals: T 36.7 C (98.1 F) HR (!) 116 BP 116/68 RR 16 O2 97 % None (Room air) General: Awake, alert, in no acute distress Eyes: Gaze conjugate. No scleral icterus or injection, PERRL HENT: Normo-cephalic, atraumatic. No stridor CV: Regular rate, regular rhythm. Radial and DP pulses 2+ bilaterally Resp: Breathing non-labored, speaking in full sentences. Clear to auscultation bilaterally Chest: non-tender GI: Soft, gravid, non-tender. No rebound or guarding. : Deferred MSK/Extremities: No gross bony deformities. Moving all extremities Skin: Warm. Appropriate color Neuro: Alert. Orientedx4. Face symmetric. Speech is fluent. Gross strength and sensation intact in b/l UE and LEs Psych: Appropriate mood and affect Medical Decision Making & ED Course Medical Decision Makin y.o. female with above history and physical notable for well-appearing female with history consistent with a Crohn's flare. Lab workup was notable for significantly elevated CRP as well as anelevated ESR. Calprotectin was sent but not yet resulted at the time of admission. Additionally patient's heart rate was elevated, suspect that this may be partially related to but more like ly related to a fluid deficit, for this reason I repleted fluids with 1 L of LR. Changes in electrolytes corroborated this. Hemoglobin was checked and found to be at 9.4. Somewhat decreased but not critically. Patient's overall history consistent with Crohn's flare, having fevers associated with illness, decreased hemoglobin in an otherwise healthy 34-year-old, and dehydration significant enough to elevateheart rate are concerning enough to warrant an admission. This is further escalated as this patientis of the [facility] and I do have some suspicion that they may have difficulty obtaining additional follow-up. In addition to this her outpatient fellow notes that this is a more complex form of Crohn's disease (fistulizing), and this note also recommends admission. Patient does not have any evidence of other acute medical issues and there is a risk to fetus if imaging of the abdomen is obtained. Will not obtain CT of the abdomen. All symptoms are appropriate for and/or Crohn's flare. For patient's vaginal spotting there is some concern but is appropriate to continue to monitor for any changes, will not push patient to undergo examination at this time. Because of withspotting, patient may benefit from OB consult while admitted to the hospital. Patient continues to have bowel movements so I have little suspicion for condition such as SBO. No pain on examination so without signs of peritonitis I am not concerned that this is a surgical problem nor does it warrant CT scan as the benefits do not outweigh the risks Because of the symptoms and because patient has not had confirmatory ultrasound yet. Performed POCUS of the abdomen to confirm IUP. IUP was confirmed and activity is present. cardiac activity is identified but due to motion was not able to be appropriately measured. No acute concerns for fetus at this time other than that treatment for patient would be of greatest benefit to fetus ED Course: Diagnoses as of 09/27/24 0755 Gastrointestinal Crohn's disease Exacerbation of Crohn's disease with complication (Multi) --- Social Determinants of Health which Significantly Impact Care: None identified EKG Independent Interpretation: EKG not obtained The patient was discussed with the following consultants/services: Hospitalist/Admitting Provider who accepted the patient for admission Independent Result Review and Interpretation: Relevant laboratory and radiographic results were reviewed and independently interpreted by myself. As necessary, they are commented on in the ED Course. Chronic conditions affecting the patient's care: As documented above in MDM Care Considerations: As documented above in MDM Disposition As a result of their workup, the patient will require admission to the hospital. The patient was informed of her diagnosis. The patient was given the opportunity to ask questions and I answered them.The patient agreed to be admitted to the hospital. Procedures Procedures This was a shared visit with an ED attending. The patient was seen and discussed with the ED attending Jak Lange MD Emergency Medicine Jak Lange MD Resident 09/27/24 0644 Jak Lange MD Resident 09/27/24 0755 Cosigned by Margarito Berkowitz MD at 09/27/2024 11:42 PM EST Associated attestation - Margarito Berkowitz MD - 09/27/2024 11:42 PM EST The patient was seen by the resident/fellow. I have personally performed a substantive portion of the encounter. I have seen and examined the patient; agree with the workup, evaluation, MDM, management and diagnosis. The care plan has been discussed with the resident/fellow; I have reviewed the resident/fellow s note and agree with the documented findings with the exception/addition of the following: Patient with hx crohn's disease, also currently 14 weeks GA presenting with bloody stools, worsening over the last several days. Denies any vaginal discharge/ bleeding. Referred to ED by GIfor admission/ further evaluation. Labs demonstrating elevated inflammatory markers, mild microcytic anemia but HDS, given HGB >7 no indication for transfusion currently. Benign abdominal exam sugg esting against peritonitic process meriting advanced imaging of the abdomen especially in setting of early risk of radiation exposure currently outweighs benefit of CT imaging. Bedside US shows IUP with good movement, difficulty assessing HR due to movement as well as patients body habitus. GI consulted agrees with admission, admitted in stable condition for further evaluation and management of crohn's flare. [facility] Work Phone: 1(446) 458-411912-12-2024 Instructions* Patient Instructions* Georges Marin MD MPH - 08/30/2024 2:30 PM EST Thank you for coming to see me in the GI clinic today. I am pleased that you have started on the Humira. Congratulations on your as well! I want you to get a Humira antibody level checked just 1 or 2 days before your 1st maintenance doseof Humira. Keep taking your Humira injections and watch out for any worsening symptoms like we discussed. I will see you back in 4 months or sooner if necessary! Happy Holidays! [facility] Work Phone: 1(518) 635-493509-05-2024 Instructions* Patient Instructions* Georges Marin MD MPH - 05/24/2024 2:00 PM EDT Thank you for coming to see me in the GI clinic today. I am sorry to hear that you are having more symptoms again. In order to control your immediate symptoms of diarrhea and bloody stools, I am going to start you on a prednisone taper for 2 months. I amalso going to start you on budesonide enemas for a month to be done nightly. I have ordered some bloodwork for you which you need to get done as soon as possible. I have also ordered a CT enterography to see if there is further involvement of your small bowel. In terms of intermediate school teacher treatment, we need to start you on a anti-TNF medication (either inflimab [also called Remicade] or Adalimumab [also called Humira]) along with an immunomodulator called Azathioprine (also called Imuran). I will talk to our IBD nurse and keep you posted. You will also eventually need to be seen by the colorectal surgeons as you still have drainage in your johanna-anal area. So, it is possible that you have developed johanna-anal region. But we can wait on this for a little bit. Take care and come see me back in 3 months. If you need to reach me, please call [phone]. Be safe! [facility] Work Phone: 1(884) 441-441906-09-2024 Note. MICRO - Microbiology PROCEDURE: Blood Culture (bacterial) [*1] SOURCE: Blood BODY SITE: COLLECTED DATE/TIME: 02/21/2024 10:05 EDT RECEIVED DATE/TIME: 02/21/2024 16:29 EDT START DATE/TIME: 02/21/2024 16:29 EDT FREE TEXT SOURCE: FINAL REPORTS Final Report [] Verified Date/Time/Personnel: 02/26/2024 16:59 EDT Blood Culture: No Growth at 5 days. PRELIMINARY REPORTS Preliminary Report [] Verified Date/Time/Personnel: 02/21/2024 17:59 EDT Culture has been received in lab and is no growth to date. Routine cultures are held for 5 days. Performing Locations *1: This test was performed at: [address], [address] [place], [place] [address]-26-2024 Note. MICRO - Microbiology PROCEDURE: Blood Culture (bacterial) [O1 *1] SOURCE: Blood BODY SITE: COLLECTED DATE/TIME: 02/21/2024 10:20 EDT RECEIVED DATE/TIME: 02/21/2024 16:27 EDT START DATE/TIME: 02/21/2024 16:28 EDT FREE TEXT SOURCE: FINAL REPORTS Final Report [] Verified Date/Time/Personnel: 02/26/2024 16:59 EDT Blood Culture: No Growth at 5 days. PRELIMINARY REPORTS Preliminary Report [] Verified Date/Time/Personnel: 02/21/2024 16:59 EDT Culture has been received in lab and is no growth to date. Routine cultures are held for 5 days. Order Comments O1: Blood Culture (bacterial) L AC Performing Locations *1: This test was performed at: [address], [address] [place], [place] [address]-24-2024 Nurse Note* Erika Martinez RN - 02/24/2024 4:46 PM EDT Patient discharge paperwork, instructions and education provided. Patient questions answered, no further questions. IV removed , catheter intact [facility]06-07-2024 Nurse Note* Erika Martinez RN - 02/24/2024 4:46 PM EDT Patient discharge paperwork, instructions and education provided. Patient questions answered, no further questions. IV removed , catheter intact documented in this [facility] Work Phone: 1(492) 555-417506-07-2024 History of Present illness Narrative* Marco Salguero MD - 02/24/2024 1:16 PM EDT Sheri South is a 33 y.o. female on day 3 of admission presenting with Necrotizing fasciitis (Multi). Subjective Interval History: Patient is comfortably lying in the bed. Patient's at bedside. Diarrhea improving. Review of Systems Objective Range of Vitals (last 24 hours) Heart Rate: [76-94] Temp: [36.1 C (97 F)-37.4 C (99.3 F)] Resp: [16-18] BP: (93-111)/(44-76) SpO2: [95 %-98 %] Daily Weight 02/21/24 : 89.8 kg (198 lb) Body mass index is 35.07 kg/m . Physical Exam GENERAL APPEARANCE: Awake and alert and not in any distress HEENT: Atraumatic and normocephalic CARDIAC: Regular LUNGS: Clear ABDOMEN: Soft and nontender. Porsha drain noted over perineum with brownish purulent drainage. No significant swelling or erythema. Antibiotics clindamycin in D5W (Cleocin) IVPB 900 mg cxxxfjooqeou-qqxestatcf-vjfixuiq (Zosyn) IV 3.375 g vancomycin (Vancocin) pharmacy to dose - pharmacy monitoring vancomycin (Vancocin) capsule 125 mg lactated Ringer's infusion acetaminophen (Tylenol) tablet 650 mg oxyCODONE (Roxicodone) immediate release tablet 5 mg naloxone (Narcan) injection 0.2 mg enoxaparin (Lovenox) syringe 40 mg oxyCODONE (Roxicodone) immediate release tablet 10 mg ondansetron (Zofran) injection 4 mg four factor human prothrombin complex concentrate (Kcentra) 2,156 Units in sterile water 100 mL infusion potassium chloride 20 mEq in 100 mL IV premix clindamycin in D5W (Cleocin) IVPB - Omnicell Override Pull four factor human prothrombin complex concentrate (Kcentra) 2,156 Units in sterile water 80 mL infusion vancomycin (Vancocin) in dextrose 5 % water (D5W) 500 mL IV 1,500 mg sodium chloride 0.9 % irrigation solution lidocaine (Xylocaine) 10 mg/mL (1 %) injection 1 mg lactated Ringer's infusion acetaminophen (Tylenol) tablet 650 mg HYDROmorphone (Dilaudid) injection 0.2 mg oxyCODONE (Roxicodone) immediate release tablet 5 mg HYDROmorphone (Dilaudid) injection 0.5 mg midazolam (Versed) injection 1 mg metoclopramide (Reglan) injection 10 mg promethazine (Phenergan) 6.25 mg in sodium chloride 0.9% 50 mL IV aprepitant (Emend) capsule 40 mg metoprolol tartrate (Lopressor) injection 5 mg hydrALAZINE (Apresoline) injection 5 mg diphenhydrAMINE (BENADryl) injection 25 mg albuterol 2.5 mg /3 mL (0.083 %) nebulizer solution 2.5 mg HYDROmorphone (Dilaudid) injection - Omnicell Override Pull metoprolol tartrate (Lopressor) injection - Omnicell Override Pull metoclopramide (Reglan) injection - Omnicell Override Pull potassium chloride CR (Klor-Con M20) ER tablet 40 mEq potassium chloride CR (Klor-Con M20) ER tablet 20 mEq iron sucrose (Venofer) 300 mg in sodium chloride 0.9% 250 mL IV phytonadione (Vitamin K) tablet 10 mg hkcdnelwuexy-gpdfgamphv-jiuceffz (Zosyn) IV 4.5 g vancomycin (Vancocin) in dextrose 5 % water (D5W) 500 mL IV 1,500 mg vancomycin (Vancocin) capsule 500 mg oxyCODONE (Roxicodone) immediate release tablet acetaminophen (Tylenol) tablet vancomycin (Vancocin) capsule amoxicillin-clavulanate (Augmentin) 875-125 mg tablet, 1 BID for 14 days, #28, Ref 0 Relevant Results Labs Results from last 72 hours Lab Units 02/24/24 0646 02/23/24 0847 02/22/2494302/21/24225602/21/24 1814 WBC AUTO x10*3/uL 8.6 19.4* 18.3* < > 22.2* HEMOGLOBIN g/dL 7.5* 8.5* 6.4* < > 6.1* HEMATOCRIT % 24.9* 28.8* 22.4* < > 20.4* PLATELETS AUTO x10*3/uL 352 440 376 < > 386 NEUTROS PCT AUTO % -- -- -- -- 86.7 LYMPHS PCT AUTO % -- -- -- -- 8.7 MONOS PCT AUTO % -- -- -- -- 3.3 EOS PCT AUTO % -- -- -- -- 0.0 < > = values in this interval not displayed. Results from last 72 hours Lab Units 02/24/24 0646 02/23/2484602/22/24 0943 SODIUM mmol/L 137 136 136 POTASSIUM mmol/L 3.7 4.3 3.3* CHLORIDE mmol/L 102 101 101 CO2 mmol/L 28 BUN mg/dL 7 8 9 CREATININE mg/dL 0.56 0.59 0.64 GLUCOSE mg/dL 72* 80 133* CALCIUM mg/dL 7.5* 8.1* 7.7* ANION GAP mmol/L 11 15 10 EGFR mL/min/1.73m*2 >90 >90 >90 PHOSPHORUS mg/dL 3.6 3.7 3.7 Results from last 72 hours Lab Units 02/24/24 0646 02/23/24 0847 02/22/24 0943 02/21/24225602/21/24 1814 ALK PHOS U/L -- -- 94 -- 106 106 BILIRUBIN TOTAL mg/dL -- -- 0.4 -- 0.4 0.4 BILIRUBIN DIRECT mg/dL -- -- -- -- 0.0 PROTEIN TOTAL g/dL -- -- 5.4* -- 6.3* 6.3* ALT U/L -- -- 21 -- 24 24 AST U/L -- -- 19 -- 19 19 ALBUMIN g/dL 2.0* 2.3* 2.0* < > 2.3* 2.3* < > = values in this interval not displayed. Estimated Creatinine Clearance: 125 mL/min (by C-G formula based on SCr of 0.56 mg/dL). No results found for: CRP Microbiology Susceptibility data from last 14 days. Collected Specimen Info Organism 02/21/24 Swab from [facility] Eugenia albicans 02/21/24 Swab from [facility] Mixed Gram-Positive and Gram-Negative Bacteria Imaging Assessment/Plan First episode of C. difficile infection Perineal abscess s/p I and D-this may be related to patient's history of IBD Ulcerative colitis Plan Recommend to stop IV antibiotics. Recommend Augmentin 875/125 mg twice daily for 1 week and vancomycin 125 mg p.o. every 6 hours for 2 weeks. Patient and her had questions regarding ulcerative colitis and C. difficile infection whichI answered to their satisfaction. If patient has recurrence of diarrhea then she should call my office or GI. I stressed the importance of following up with GI after discharge for complete evaluation and management of ulcerative colitis. ID will sign off. Marco Salguero MD * Tona Amador MD - 02/23/2024 4:43 PM EDT [facility] [place] CONSULT FOLLOW-UP Reason For Consult Assistance with UC and C diff management SUBJECTIVE Doing better. She says she hasn't had an accident getting to the bathroom since yesterday morning. BMs are getting more formed, they are dark, but no BRB present. She denied n/v and abdominal pain. EXAM Last Recorded Vitals Blood pressure 108/73, pulse 94, temperature 36.1 C (97 F), temperature source Temporal, resp. rate16, height 1.6 m (5' 3), weight 89.8 kg (198 lb), SpO2 97%. Intake/Output Summary (Last 24 hours) at 02/23/2024 1643 Last data filed at 02/23/2024 1138 Gross per 24 hour Intake 60 ml Output -- Net 60 ml Physical Exam GENERAL: In no acute distress. NEUROLOGIC: A and O x 3. Cranial nerves 2 through 12 grossly intact. Intact motor and sensory systems. HEENT: Pupils are equal, round, and reactive to light and accommodation. Extraocular motion intact.No scleral icterus. CARDIAC: S1 + S2, RRR, no M/R/G. LUNGS: CTA BL. No wheezes or coarse breath sounds. Symmetric respirations. No increased work of breathing. ABDOMEN: Soft, non-tender to palpation. No rebound or guarding. PSYCH: Appropriate mood and behavior. OBJECTIVE Medications Current Facility-Administered Medications: acetaminophen (Tylenol) tablet 650 mg, 650 mg, oral, q6h, Piper Mcintyre MD, 650 mg at 02/23/24 1349 enoxaparin (Lovenox) syringe 40 mg, 40 mg, subcutaneous, q24h, Piper Mcintyre MD, 40 mg at 02/22/24 1833 iron sucrose (Venofer) 300 mg in sodium chloride 0.9% 250 mL IV, 300 mg, intravenous, Daily, Nam Pelayo APRN-REGULATORY AFFAIRS STRATEGY SPECIALIST, Stopped at 02/22/24 2217 naloxone (Narcan) injection 0.2 mg, 0.2 mg, intravenous, q5 min PRN, Piper Mcintyre MD ondansetron (Zofran) injection 4 mg, 4 mg, intravenous, q8h PRN, Piper Mcintyre MD oxyCODONE (Roxicodone) immediate release tablet 10 mg, 10 mg, oral, q4h PRN, Piper Mcintyre MD, 10 mg at 02/22/24 0553 oxyCODONE (Roxicodone) immediate release tablet 5 mg, 5 mg, oral, q6h PRN, Piper Mcintyre MD, 5 mg at 02/23/24 1003 ntaeqiylfnvr-hddlflwrei-spxfwutk (Zosyn) IV 4.5 g, 4.5 g, intravenous, q6h, Mago Bahena MD, Stopped at 02/23/24 1312 vancomycin (Vancocin) capsule 500 mg, 500 mg, oral, q6h, Estevan Mcqueen MD, 500 mg at 02/23/24 1004 vancomycin (Vancocin) in dextrose 5 % water (D5W) 500 mL IV 1,500 mg, 15 mg/kg, intravenous, q12h, Mago Bahena MD, Stopped at 02/23/24 1134 vancomycin (Vancocin) pharmacy to dose - pharmacy monitoring, , miscellaneous, Daily PRN, Piper Mcintyre MD Labs Results for orders placed or performed during the hospital encounter of 02/21/24 (from the past 24 hour(s)) C. difficile, PCR Specimen: Stool Result Value Ref Range C. difficile, PCR Not Detected Not Detected Vitamin B12 Result Value Ref Range Vitamin B12 >2,000 (H) 211 - 911 pg/mL Folate Result Value Ref Range Folate, Serum 9.2 >5.0 ng/mL Renal Function Panel Result Value Ref Range Glucose 80 74 - 99 mg/dL Sodium 136 136 - 145 mmol/L Potassium 4.3 3.5 - 5.3 mmol/L Chloride 101 98 - 107 mmol/L Bicarbonate 24 21 - 32 mmol/L Anion Gap 15 10 - 20 mmol/L Urea Nitrogen 8 6 - 23 mg/dL Creatinine 0.59 0.50 - 1.05 mg/dL eGFR >90 >60 mL/min/1.73m*2 Calcium 8.1 (L) 8.6 - 10.6 mg/dL Phosphorus 3.7 2.5 - 4.9 mg/dL Albumin 2.3 (L) 3.4 - 5.0 g/dL CBC Result Value Ref Range WBC 19.4 (H) 4.4 - 11.3 x10*3/uL nRBC 0.0 0.0 - 0.0 /100 WBCs RBC 3.68 (L) 4.00 - 5.20 x10*6/uL Hemoglobin 8.5 (L) 12.0 - 16.0 g/dL Hematocrit 28.8 (L) 36.0 - 46.0 % MCV 78 (L) 80 - 100 fL MCH 23.1 (L) 26.0 - 34.0 pg MCHC 29.5 (L) 32.0 - 36.0 g/dL RDW 17.3 (H) 11.5 - 14.5 % Platelets 440 150 - 450 x10*3/uL Magnesium Result Value Ref Range Magnesium 2.28 1.60 - 2.40 mg/dL 08/2023 calprotectin 564 Imaging GI Procedures ASSESSMENT / PLAN ASSESSMENT/PLAN: Sheri South is a 33 y.o. female with a past medical history of UC, transferred from [facility] on 02/21/2024 for evaluation of possible necrotizing soft tissue infections of the perineum, now s/p I&D of perineal abscess w/ placement of x2 [place] drains. She was found to have C. Diff. GI is consulted for assistance with UC and C diff management. Recommendations: - Appreciate ID assistance w/ C. Diff management. - Do not start steroids in light of C. Diff and perineal abscess. - The patient can follow up outpatient with Dr. Jaylon Turcios. She can make an appointment at . Please make sure this information is included in her discharge instructions. - She will need a colonoscopy once the infections are under better control to assess for disease severity. The above recommendations were communicated to the ACS team. Patient was seen and discussed with Dr. Spence. Gastroenterology will sign off. Tona Amador MD PGY-4 Gastroenterology and Hepatology Fellow [facility] Associated attestation - Ethan Spence MD - 02/23/2024 5:49 PM EDT GI CONSULT ATTENDING NOTE: I saw and evaluated the patient. I personally obtained the cordova and critical portions of the historyand physical exam or was physically present for cordova and critical portions performed by the fellow/resident/medical student. I agree with the trainee's medical decision making as described in the trainee's note with the exception as noted below. The total time spent on the floor rendering services for this patient (obtaining/reviewing additional history, performing medically appropriate exam and/or evaluation, reviewing the electronic chart, labs, imaging, independently interpreting the results and communicating and discussing with medical teams, counseling and educating the patient, discussing with family members, ordering medications, tests and/or procedures, coordinating care, and documentation) was 50 minutes. More than 50% of the time was required for counseling and coordinating care. Long discussion with patient and re: need for long-term management of ulcerative colitis with repeat colonoscopy for disease activity assessment. Discussed options for management. Discussed nutrition concerns. Crohn's colitis also remains in differential given perineal abscesses. Will need extended vancomycin therapy beyond those antibiotics given for perineal abscesses as these antibiotics will prolong C difficile course. All of patient's and 's questions answered to their full satisfaction. Ethan Spence MD, MELISA Chief Medical Loan Interviewer [facility] [place] Associate Chief and Director of Clinical Operations Division of Gastroenterology & Liver Disease [facility] Master Clinician [facility] professional builder [facility] * Edy Neribes, ORACLE IAM CONSULTANT-REGULATORY AFFAIRS STRATEGY SPECIALIST - 02/22/2024 12:48 PM EDT [facility] SURGERY - PROGRESS NOTE Patient Name: Sheri South Admit Date: [id number] : 1990 AGE: 33 y.o. GENDER: female TODAY'S ASSESSMENT AND PLAN OF CARE: 33 y/o F with known hx of UC who presents as a transfer for evaluation for possible NSTI of perineum. Patient presented to OSH earlier today with perianal pain and was found to be C diff positive, with imaging concerning for a possibly necrotizing perianal abscess. OR 6/4: incision and drainage of perineal abscess with placement of porsha x2 Neuro: Acute postop pain - Scheduled Tylenol - Oxycodone 5/10mg PRN Resp: - Encourage IS - OOOB, ambulate as tolerated Card: no active issues - vital signs [id number] GI: Untreated UC - GI consult today to assist with UC management - Regular diet as tolerated : - Strict I&Os - Replete lytes as indicated Heme: chronic anemia disorder/plasma metabolism disorder Hematology consult today, follow up recs Supratherapeutic INR on admit to 2.2- s/p Kcentra - Given Plasma and PRBC overnight INR 1.7 this AM - Trend Coags daily - Keep Hgb above 6, Transfuse for hgb <6 ID: # C diff - Continue oral vancomycin #NSTI - Continue Vanc, Zosyn, Clinda - Follow up OR cultures ID consult to assist with antibiotic course in setting of C. Diff and NSTI Endo: no active issues DVT Proph: - SCDs, Lovenox Dispo: continue RNF Patient seen and discussed with Attending Dr. Abner Pelayo APRN-[facility] Acute Care Surgery Pager [phone] CHIEF COMPLAINT / EVENTS LAST 24HRS / HPI: No acute events since surgery. Patients pain well controlled, tolerating diet. States she had to liquid Bms this AM. Denies nausea MEDICAL HISTORY / ROS: Admission history and ROS reviewed. Pertinent changes as follows: No new changes PHYSICAL EXAM: Heart Rate: [78-141] Temp: [35.8 C (96.4 F)-36.7 C (98.1 F)] Resp: [9-24] BP: (99-190)/(54-72) Height: [160 cm (5' 3)] Weight: [89.8 kg (198 lb)] SpO2: [90 %-99 %] Physical Exam Constitutional: Appearance: Normal appearance. Eyes: Extraocular Movements: Extraocular movements intact. Cardiovascular: Rate and Rhythm: Normal rate. Pulmonary: Effort: Pulmonary effort is normal. Abdominal: Comments: Soft, non tender Musculoskeletal: General: Normal range of motion. Skin: General: Skin is warm and dry. Comments: Perineal/gluteal- porsha drains remain in place with small amount of serous sang drainage. Mild erythema noted. Small amount of stool noted around rectum Neurological: Mental Status: She is alert and oriented to person, place, and time. Psychiatric: Behavior: Behavior normal. LABS: Results for orders placed or performed during the hospital encounter of 02/21/24 (from the past 24 hour(s)) CBC and Auto Differential Result Value Ref Range WBC 22.2 (H) 4.4 - 11.3 x10*3/uL nRBC 0.0 0.0 - 0.0 /100 WBCs RBC 2.87 (L) 4.00 - 5.20 x10*6/uL Hemoglobin 6.1 (LL) 12.0 - 16.0 g/dL Hematocrit 20.4 (L) 36.0 - 46.0 % MCV 71 (L) 80 - 100 fL MCH 21.3 (L) 26.0 - 34.0 pg MCHC 29.9 (L) 32.0 - 36.0 g/dL RDW 16.4 (H) 11.5 - 14.5 % Platelets 386 150 - 450 x10*3/uL Neutrophils % 86.7 40.0 - 80.0 % Immature Granulocytes %, Automated 1.1 (H) 0.0 - 0.9 % Lymphocytes % 8.7 13.0 - 44.0 % Monocytes % 3.3 2.0 - 10.0 % Eosinophils % 0.0 0.0 - 6.0 % Basophils % 0.2 0.0 - 2.0 % Neutrophils Absolute 19.22 (H) 1.20 - 7.70 x10*3/uL Immature Granulocytes Absolute, Automated 0.24 0.00 - 0.70 x10*3/uL Lymphocytes Absolute 1.92 1.20 - 4.80 x10*3/uL Monocytes Absolute 0.74 0.10 - 1.00 x10*3/uL Eosinophils Absolute 0.00 0.00 - 0.70 x10*3/uL Basophils Absolute 0.04 0.00 - 0.10 x10*3/uL Comprehensive metabolic panel Result Value Ref Range Glucose 97 74 - 99 mg/dL Sodium 135 (L) 136 - 145 mmol/L Potassium 3.3 (L) 3.5 - 5.3 mmol/L Chloride 101 98 - 107 mmol/L Bicarbonate 22 21 - 32 mmol/L Anion Gap 15 10 - 20 mmol/L Urea Nitrogen 7 6 - 23 mg/dL Creatinine 0.60 0.50 - 1.05 mg/dL eGFR >90 >60 mL/min/1.73m*2 Calcium 7.6 (L) 8.6 - 10.6 mg/dL Albumin 2.3 (L) 3.4 - 5.0 g/dL Alkaline Phosphatase 106 33 - 110 U/L Total Protein 6.3 (L) 6.4 - 8.2 g/dL AST 19 9 - 39 U/L Bilirubin, Total 0.4 0.0 - 1.2 mg/dL ALT 24 7 - 45 U/L Coagulation Screen Result Value Ref Range Protime 24.5 (H) 9.8 - 12.8 seconds INR 2.2 (H) 0.9 - 1.1 aPTT 23 (L) 27 - 38 seconds Type and Screen Result Value Ref Range ABO TYPE AB Rh TYPE POS ANTIBODY SCREEN NEG Hepatic function panel Result Value Ref Range Albumin 2.3 (L) 3.4 - 5.0 g/dL Bilirubin, Total 0.4 0.0 - 1.2 mg/dL Bilirubin, Direct 0.0 0.0 - 0.3 mg/dL Alkaline Phosphatase 106 33 - 110 U/L ALT 24 7 - 45 U/L AST 19 9 - 39 U/L Total Protein 6.3 (L) 6.4 - 8.2 g/dL Prepare RBC: 1 Units Result Value Ref Range PRODUCT CODE Y7816L80 Unit Number [id number] Unit ABO AB Unit RH POS XM INTEP COMP Dispense Status IS Blood Expiration Date March 07, 2024 23:59 EDT PRODUCT BLOOD TYPE 8400 UNIT VOLUME 350 Prepare RBC: 1 Units Result Value Ref Range PRODUCT CODE F5730S08 Unit Number [id number] Unit ABO AB Unit RH POS XM INTEP COMP Dispense Status XM Blood Expiration Date March 07, 2024 23:59 EDT PRODUCT BLOOD TYPE 8400 UNIT VOLUME 350 VERIFY ABO/Rh Group Test Result Value Ref Range ABO TYPE AB Rh TYPE POS CBC Result Value Ref Range WBC 23.0 (H) 4.4 - 11.3 x10*3/uL nRBC 0.0 0.0 - 0.0 /100 WBCs RBC 3.45 (L) 4.00 - 5.20 x10*6/uL Hemoglobin 7.8 (L) 12.0 - 16.0 g/dL Hematocrit 25.8 (L) 36.0 - 46.0 % MCV 75 (L) 80 - 100 fL MCH 22.6 (L) 26.0 - 34.0 pg MCHC 30.2 (L) 32.0 - 36.0 g/dL RDW 18.0 (H) 11.5 - 14.5 % Platelets 440 150 - 450 x10*3/uL Renal Function Panel Result Value Ref Range Glucose 117 (H) 74 - 99 mg/dL Sodium 135 (L) 136 - 145 mmol/L Potassium 4.0 3.5 - 5.3 mmol/L Chloride 101 98 - 107 mmol/L Bicarbonate 22 21 - 32 mmol/L Anion Gap 16 10 - 20 mmol/L Urea Nitrogen 8 6 - 23 mg/dL Creatinine 0.67 0.50 - 1.05 mg/dL eGFR >90 >60 mL/min/1.73m*2 Calcium 7.7 (L) 8.6 - 10.6 mg/dL Phosphorus 4.1 2.5 - 4.9 mg/dL Albumin 2.2 (L) 3.4 - 5.0 g/dL Coagulation Screen Result Value Ref Range Protime 16.6 (H) 9.8 - 12.8 seconds INR 1.5 (H) 0.9 - 1.1 aPTT 28 27 - 38 seconds Magnesium Result Value Ref Range Magnesium 1.76 1.60 - 2.40 mg/dL Iron and TIBC Result Value Ref Range Iron 19 (L) 35 - 150 ug/dL UIBC 163 110 - 370 ug/dL TIBC 182 (L) 240 - 445 ug/dL % Saturation 10 (L) 25 - 45 % Magnesium Result Value Ref Range Magnesium 1.97 1.60 - 2.40 mg/dL Vancomycin Result Value Ref Range Vancomycin 9.3 5.0 - 20.0 ug/mL Comprehensive metabolic panel Result Value Ref Range Glucose 133 (H) 74 - 99 mg/dL Sodium 136 136 - 145 mmol/L Potassium 3.3 (L) 3.5 - 5.3 mmol/L Chloride 101 98 - 107 mmol/L Bicarbonate 28 21 - 32 mmol/L Anion Gap 10 10 - 20 mmol/L Urea Nitrogen 9 6 - 23 mg/dL Creatinine 0.64 0.50 - 1.05 mg/dL eGFR >90 >60 mL/min/1.73m*2 Calcium 7.7 (L) 8.6 - 10.6 mg/dL Albumin 2.0 (L) 3.4 - 5.0 g/dL Alkaline Phosphatase 94 33 - 110 U/L Total Protein 5.4 (L) 6.4 - 8.2 g/dL AST 19 9 - 39 U/L Bilirubin, Total 0.4 0.0 - 1.2 mg/dL ALT 21 7 - 45 U/L Coagulation Screen Result Value Ref Range Protime 19.4 (H) 9.8 - 12.8 seconds INR 1.7 (H) 0.9 - 1.1 aPTT 31 27 - 38 seconds Phosphorus Result Value Ref Range Phosphorus 3.7 2.5 - 4.9 mg/dL CBC Result Value Ref Range WBC 18.3 (H) 4.4 - 11.3 x10*3/uL nRBC 0.0 0.0 - 0.0 /100 WBCs RBC 2.87 (L) 4.00 - 5.20 x10*6/uL Hemoglobin 6.4 (LL) 12.0 - 16.0 g/dL Hematocrit 22.4 (L) 36.0 - 46.0 % MCV 78 (L) 80 - 100 fL MCH 22.3 (L) 26.0 - 34.0 pg MCHC 28.6 (L) 32.0 - 36.0 g/dL RDW 17.1 (H) 11.5 - 14.5 % Platelets 376 150 - 450 x10*3/uL MEDICATIONS: Current Facility-Administered Medications Medication Dose Route Frequency Provider Last Rate Last Admin acetaminophen (Tylenol) tablet 650 mg 650 mg oral q6h Piper Mcintyre MD 650 mg at 02/22/24 0838 clindamycin in D5W (Cleocin) IVPB 900 mg 900 mg intravenous q8h Piper Mcintyre MD Stopped at 02/22/24 0428 enoxaparin (Lovenox) syringe 40 mg 40 mg subcutaneous q24h Piper Mcintyre MD naloxone (Narcan) injection 0.2 mg 0.2 mg intravenous q5 min PRN Piper Mcintyre MD ondansetron (Zofran) injection 4 mg 4 mg intravenous q8h PRN Piper Mcintyre MD oxyCODONE (Roxicodone) immediate release tablet 10 mg 10 mg oral q4h PRN Piper Mcintyre MD 10 mg at 02/22/24 0553 oxyCODONE (Roxicodone) immediate release tablet 5 mg 5 mg oral q6h PRN Piper Mcintyre MD taghcyhqrjud-uzxwooanql-spzvamal (Zosyn) IV 3.375 g 3.375 g intravenous q6h Piper Mcintyre MD Stopped at 02/22/24 0908 vancomycin (Vancocin) capsule 125 mg 125 mg oral 4x daily Piper Mcintyre MD 125 mg at 02/22/24 0650 vancomycin (Vancocin) in dextrose 5 % water (D5W) 500 mL IV 1,500 mg 15 mg/kg intravenous q12h Edy Pelayo APRN-[facility] 333.3 mL/hr at 02/22/24 1030 1,500 mg at 02/22/24 1030 vancomycin (Vancocin) pharmacy to dose - pharmacy monitoring miscellaneous Daily PRN Piper Mcintyre MD IMAGING SUMMARY: (summary of new imaging findings, not a copy of dictation) No new imaging * Aubrey Leahy, PharmD - 02/22/2024 12:32 PM EDT Vancomycin Dosing by Pharmacy- FOLLOW UP Sheri South is a 33 y.o. year old female who Pharmacy has been consulted for vancomycin dosing for cellulitis, skin and soft tissue. Based on the patient's indication and renal status this patient isbeing dosed based on a goal AUC of 400-600. Renal function is currently stable. Current vancomycin dose: 1500 mg given every 12 hours Estimated vancomycin AUC on current dose: 476 mg/L.hr Visit Vitals BP 102/68 Pulse 97 Temp 36.6 C (97.9 F) Resp 18 Lab Results Component Value Date CREATININE 0.64 02/22/2024 CREATININE 0.67 02/21/2024 CREATININE 0.60 02/21/2024 Patient weight is as follows: Vitals: 02/21/24 1748 Weight: 89.8 kg (198 lb) Cultures: No results found for the encounter in last 14 days. I/O last 3 completed shifts: In: 2100 (23.4 mL/kg) [I.V.:1600 (17.8 mL/kg); Blood:350; IV Piggyback:150] Out: 1060 (11.8 mL/kg) [Urine:1015 (0.3 mL/kg/hr); Drains:5; Blood:40] Weight: 89.8 kg I/O during current shift: No intake/output data recorded. Temp (24hrs), Av.4 C (97.5 F), Min:35.8 C (96.4 F), Max:36.7 C (98.1 F) Assessment/Plan Within goal AUC range. Continue current vancomycin regimen. This dosing regimen is predicted by [employer] to result in the following pharmacokinetic parameters: Loading dose: N/A Regimen: 1500 mg IV every 12 hours. Start time: 22:30 on 02/22/2024 Exposure target: AUC24 (range)400-600 mg/L.hr AUC24,ss: 476 mg/L.hr Probability of AUC24 > 400: 84 % Ctrough,ss: 13 mg/L Probability of Ctrough,ss > 20: 6 % Probability of nephrotoxicity (Lodise SHITAL 2009): 8 % The next level will be obtained on 02/28 at AM labs. May be obtained sooner if clinically indicated. Will continue to monitor renal function daily while on vancomycin and order serum creatinine at least every 48 hours if not already ordered. Follow for continued vancomycin needs, clinical response, and signs/symptoms of toxicity. Aubrey Leahy PharmD [facility] Work Phone: [phone]) 980-237306-07-2024 Hospital Note* Hospital Course - Ivelisse Weiner PA-C - 02/24/2024 11:38 AM EDT 33 y/o F with known hx of UC who presents as a transfer for evaluation for possible NSTI of perineum. Patient presented to OSH earlier today with perianal pain and was found to be C diff positive, with imaging concerning for a possibly necrotizing perianal abscess. OR 02/20: incision and drainage of perineal abscess with placement of porsha x2 ID was consulted for patient. She will continue to take Vancomycin 125mg q 6 hours for two weeks and Augmentin BID for one week. She will follow [facility] in [facility] for [facility]ha [facility]. [facility] Work Phone: 1(818) 319-379006-07-2024 Hospital course Narrative* Ivelisse Weiner PA-C - 02/24/2024 11:38 AM EDT Discharge Diagnosis Necrotizing fasciitis (Multi) Issues Requiring Follow-Up Post -op, drain removal. [facility] Test Results Pending At Discharge Pending Labs Order Current Status Tissue/Wound Culture/Smear Preliminary result Hospital Course 33 y/o F with known hx of UC who presents as a transfer for evaluation for possible NSTI of perineum. Patient presented to OSH earlier today with perianal pain and was found to be C diff positive, with imaging concerning for a possibly necrotizing perianal abscess. OR 02/20: incision and drainage of perineal abscess with placement of porsha x2 ID was consulted for patient. She will continue to take Vancomycin 125mg q 6 hours for two weeks and Augmentin BID for one week. She will follow up in [facility] for porsha drain removal. Pertinent Physical Exam At Time of Discharge Physical Exam Constitutional: Appearance: Normal appearance. Eyes: Extraocular Movements: Extraocular movements intact. Cardiovascular: Rate and Rhythm: Normal rate. Pulmonary: Effort: Pulmonary effort is normal. Abdominal: Comments: Soft, non tender Musculoskeletal: General: Normal range of motion. Skin: General: Skin is warm and dry. Comments: Perineal/gluteal- porsha drains remain in place with small amount of serous sang drainage. Neurological: Mental Status: She is alert and oriented to person, place, and time. Psychiatric: Behavior: Behavior normal. Home Medications Medication List START taking these medications acetaminophen 325 mg tablet; Commonly known as: Tylenol; Take 2 tablets (650 mg) by mouth every 6 hours. amoxicillin-pot clavulanate 875-125 mg tablet; Commonly known as: Augmentin; Take 1 tablet by mouth once daily for 7 days. oxyCODONE 5 mg immediate release tablet; Commonly known as: Roxicodone; Take 1 tablet (5 mg) by mouth every 6 hours if needed for severe pain (7 - 10) for up to 5 days. vancomycin 125 mg capsule; Commonly known as: Vancocin; Take 1 capsule (125 mg) by mouth every 6 hours for 14 days. Outpatient Follow-Up Pending [facility] Ivelisse Weiner PA-C documented in this [facility] Work Phone: [phone]) 133-585406-07-2024 Miscellaneous Notes* Hospital Course - Ivelisse Weiner PA-C - 02/24/2024 11:38 AM EDT 33 y/o F with known hx of UC who presents as a transfer for evaluation for possible NSTI of perineum. Patient presented to OSH earlier today with perianal pain and was found to be C diff positive, with imaging concerning for a possibly necrotizing perianal abscess. OR /: incision and drainage of perineal abscess with placement of porsha x2 ID was consulted for patient. She will continue to take Vancomycin 125mg q 6 hours for two weeks and Augmentin BID for one week. She will follow up in [facility] for porsha drain removal. * Care Plan - Erika Martinez RN - 02/24/2024 9:14 AM EDT The patient's goals for the shift include no injuries no bleeding The clinical goals for the shift include patient will be free of falls during shift Problem: Pain Goal: My pain/discomfort is manageable Outcome: Progressing Problem: Safety Goal: Patient will be injury free during hospitalization Outcome: Progressing Goal: I will remain free of falls Outcome: Progressing Problem: Daily Care Goal: Daily care needs are met Outcome: Progressing * Care Plan - Elsa Kingsley RN - 02/23/2024 10:48 AM EDT The patient's goals for the shift include no injuries no bleeding The clinical goals for the shift include Pain control and increased activity Over the shift, the patient is making adequate progress towards stated care plan goals * Significant Event - Estevan Mcqueen MD - 02/22/2024 5:19 AM EDT Postoperative Check Note Conchita South is a 33 y.o. female who is now POD0 s/p incision and drainage of perineal abscess. Postoperatively, patient feels well, and denies fevers/chills, n/v, chest pain, shortness of breath. Feels her pain is well-controlled 3-/ and appropriate for this time. Patient has been have symptoms of diarrhea since surgery (C diff+) Objective Vitals: Visit Vitals BP 126/72 (BP Location: Right arm, Patient Position: Lying) Pulse 89 Temp 36.2 C (97.2 F) (Temporal) Resp 18 Physical Exam: GEN: No acute distress. Alert, awake and conversive. HEENT: Sclera anicteric. Moist mucous membranes. RESP: Breathing non-labored, equal chest rise. On RA. CV: Regular rate, normotensive GI: Abdomen soft, nondistended, nontender. Left gluteal wound with 2x porsha drains : Voiding spontaneously. MSK: No gross deformities. Moves all extremities spontaneously. NEURO: Alert and oriented x3. No focal deficits. PSYCH: Appropriate mood and affect. SKIN: No rashes or lesions. Most recent labs: 7.8 23.0>-----<440 25.8 135 101 8 <117 4.0 22 0.67 Mg 1.76 Assessment Sheri South is a 33 y.o. female who is now POD0 s/p incision and drainage of perineal abscess. Patient is in stable condition, appropriate for postoperative course. The plan is as follows: - Will continue to optimize pain management, current pain regimen tylenol , oxy 5/10 - Regular diet - PO fluids Estevan Mcqueen MD PGY-1 General Surgery Acute Care Surgery [id number] * Care Plan - Anali Greer RN - 02/22/2024 12:43 AM EDT The patient's goals for the shift include The clinical goals for the shift include Over the shift, the patient did not make progress toward the following goals. Barriers to progression include infectionRecommendations to address these barriers include keep area clean and follow poc * Brief Op Note - Mel Guzman DO - 02/21/2024 7:35 PM EDT Date: 02/21/2024 OR Location: [facility] OR Name: Sheri South DOB: 1990, Age: 33 y.o., , Sex: female Diagnosis Pre-op Diagnosis * Necrotizing fasciitis (Multi) [M72.6] Postop Diagnosis Perineal abscess with anal fissure Procedures I&D perineal abscess with placement of porsha x2 Surgeons * Mel Guzman - Primary Resident/Fellow/Other Refuse Driver: Surgeons and Role: * Piper Mcintyre MD - Resident - Assisting * Gary Morin MD - Resident - Assisting Procedure Summary Anesthesia: General ASA: I Anesthesia Staff: Anesthesiologist: Lory German MD Cotton Grader: Elvia Davis DO; Luis Moreland DO Estimated Blood Loss: 25mL Intra-op Medications: Administrations occurring from 1935 to 2099 on 02/21/24: Medication Name Total Dose acetaminophen (Tylenol) tablet 650 mg Cannot be calculated clindamycin in D5W (Cleocin) IVPB 900 mg 15 mL enoxaparin (Lovenox) syringe 40 mg Cannot be calculated naloxone (Narcan) injection 0.2 mg Cannot be calculated ondansetron (Zofran) injection 4 mg Cannot be calculated oxyCODONE (Roxicodone) immediate release tablet 10 mg Cannot be calculated oxyCODONE (Roxicodone) immediate release tablet 5 mg Cannot be calculated mmgdewusnaiw-ipoamspfjd-ifbwdkze (Zosyn) IV 3.375 g Cannot be calculated vancomycin (Vancocin) capsule 125 mg Cannot be calculated vancomycin (Vancocin) pharmacy to dose - pharmacy monitoring Cannot be calculated four factor human prothrombin complex concentrate (Kcentra) 2,156 Units in sterile water 80 mL infusion Cannot be calculated potassium chloride 20 mEq in 100 mL IV premix 14.17 mL lactated Ringer's infusion 28.33 mL Anesthesia Record Intraprocedure I/O Totals Intake Transfuse RBC :1 Hour 350.00 mL lactated Ringer's infusion 1500.00 mL Total Intake 1850 mL Output Urine 420 mL Est. Blood Loss 40 mL Total Output 460 mL Net Net Volume 1390 mL Specimen: ID Type Source Tests Collected by Time A : Perineal Abcess Swab ABSCESS FUNGAL CULTURE/SMEAR, TISSUE/WOUND CULTURE/SMEAR Mel Guzman, 02/21/20242215 Staff: School Manager: Brandon Kennedy Person: Tiburcio Findings: Cavity continuous with fissure. Complications: None; patient tolerated the procedure well. Disposition: PACU - hemodynamically stable. Condition: stable Specimens Collected: ID Type Source Tests Collected by Time A : Perineal Abcess Swab ABSCESS FUNGAL CULTURE/SMEAR, TISSUE/WOUND CULTURE/SMEAR Mel Guzman, 02/21/20242215 Attending Attestation: I was present for the entire procedure. Mel Guzman documented in this [facility] Work Phone: [phone]) [phone] Plan of care note* Care Plan - Erika Martinez RN - 02/24/2024 9:14 AM EDT The patient's goals for the shift include no injuries no bleeding The clinical goals for the shift include patient will be free of falls during shift Problem: Pain Goal: My pain/discomfort is manageable Outcome: Progressing Problem: Safety Goal: Patient will be injury free during hospitalization Outcome: Progressing Goal: I will remain free of falls Outcome: Progressing Problem: Daily Care Goal: Daily care needs are met Outcome: Progressing [facility] Work Phone: [phone]) 303-110406-06-2024 Plan of care note* Care Plan - Elsa Kingsley RN - 02/23/2024 10:48 AM EDT The patient's goals for the shift include no injuries no bleeding The clinical goals for the shift include Pain control and increased activity Over the shift, the patient is making adequate progress towards stated care plan goals [facility]06-06-2024 C. difficile toxin A+B tcdA+tcdB genes DARREN+probe Ql (Stl)C. difficile, PCRNot DetectedNot Detected SIMPLEXA COVID-19 DIRECT ASSAY[facility] 02/23/2024 10:33 AM [facility]06-05-2024 Consult note* Tona Amador MD - 02/22/2024 1:47 PM EDTAssociated Order(s): IP CONSULT TO GASTROENTEROLOGY [facility] [place] INITIAL CONSULT NOTE Reason For Consult Assistance with UC and C diff management SUBJECTIVE History Of Present Illness Sheri South is a 33 y.o. female with a past medical history of UC, transferred from [facility] on 02/21/2024 for evaluation of possible necrotizing soft tissue infections of the perineum, now s/p I&D of perineal abscess w/ placement of x2 Porsha drains. She was found to have C. Diff. GI is consulted for assistance with UC and C diff management. Patient and provide the history. Patient says that in September she underwent a colonoscopy for bloody diarrhea and weight loss, and was diagnosed with UC. She has x2 first cousins that have UC. Initially she was treated with steroids with improvement of symptoms. Then she saw a local GI thatprescribed mesalamine. The patient says that all of her symptoms got worse on the mesalamine. She was attempting to control her symptoms with fiber and probiotics and feel like that helped some. Thenrecently she was treated for cellulitis with ciprofloxacin when all her symptoms worsened. Sounds like she has been having urgency and accidents. Per chart review she was diagnosed with C. Diff at [facility] and started on PO vancomycin on the ?02/21/2024. She says today was the first day she was able to get to the bathroom on time. SH: Denied tobacco, alcohol, and recreational drug use. Review of Systems 12-point ROS has been reviewed and is negative, except if mentioned otherwise above. Past Medical History: History reviewed. No pertinent past medical history. Home Medications No medications prior to admission. Surgical History: History reviewed. No pertinent surgical history. Allergies: No Known Allergies Social History: Social History Socioeconomic History Marital status: Spouse name: Not on file Number of children: Not on file Years of education: Not on file Highest education level: Not on file Occupational History Not on file Tobacco Use Smoking status: Never Smokeless tobacco: Never Substance and Sexual Activity Alcohol use: Never Drug use: Never Sexual activity: Defer Other Topics Concern Not on file Social History Narrative Not on file Social Determinants of Health Financial Resource Strain: Low Risk (02/22/2024) Overall Financial Resource Strain (CARDIA) Difficulty of Paying Living Expenses: Not hard at all Food Insecurity: No Food Insecurity (02/22/2024) Hunger Vital Sign Worried About Running Out of Food in the Last Year: Never true Ran Out of Food in the Last Year: Never true Transportation Needs: No Transportation Needs (02/22/2024) PRAPARE - Transportation Lack of Transportation (Medical): No Lack of Transportation (Non-Medical): No Physical Activity: Sufficiently Active (02/22/2024) Exercise Vital Sign Days of Exercise per Week: 5 days Minutes of Exercise per Session: 60 min Stress: No Stress Concern Present (02/22/2024) [employer] [place] [employer] - Occupational Stress Questionnaire Feeling of Stress : Only a little Social Connections: Not on file Intimate Partner Violence: Not on file Housing Stability: Low Risk (02/22/2024) Housing Stability Vital Sign Unable to Pay for Housing in the Last Year: No Number of Places Lived in the Last Year: 1 Unstable Housing in the Last Year: No Family History: No family history on file. EXAM Vitals: Vitals: 02/22/24 1550 02/22/24 1744 02/22/24 1745 02/22/24 1800 BP: 107/70 105/72 98/62 BP Location: Left arm Patient Position: Lying Pulse: 101 96 99 Resp: 18 18 18 16 Temp: 35.8 C (96.4 F) 36 C (96.8 F) 36.8 C (98.2 F) TempSrc: Temporal Temporal Temporal Temporal SpO2: 96% 96% Weight: Height: Failed to redirect to the Timeline version of the [facility] SmartLink. Intake/Output Summary (Last 24 hours) at 02/22/2024 191 Last data filed at 02/22/2024 1130 Gross per 24 hour Intake 2320 ml Output 1060 ml Net 1260 ml Physical Exam GENERAL: In no acute distress. NEUROLOGIC: A and O x 3. Cranial nerves 2 through 12 grossly intact. Intact motor and sensory systems. HEENT: Pupils are equal, round, and reactive to light and accommodation. Extraocular motion intact.No scleral icterus. CARDIAC: S1 + S2, RRR, no M/R/G. LUNGS: CTA BL. No wheezes or coarse breath sounds. Symmetric respirations. No increased work of breathing. ABDOMEN: Soft, non-tender to palpation. No rebound or guarding. PSYCH: Appropriate mood and behavior. OBJECTIVE Medications Current Facility-Administered Medications: acetaminophen (Tylenol) tablet 650 mg, 650 mg, oral, q6h, Piper Mcintyre MD, 650 mg at 02/22/24 1439 enoxaparin (Lovenox) syringe 40 mg, 40 mg, subcutaneous, q24h, Piper Mcintyre MD, 40 mg at 02/22/24 1833 iron sucrose (Venofer) 300 mg in sodium chloride 0.9% 250 mL IV, 300 mg, intravenous, Daily, Nam Pelayo APRN-ISAIAH naloxone (Narcan) injection 0.2 mg, 0.2 mg, intravenous, q5 min PRN, Piper Mcintyre MD ondansetron (Zofran) injection 4 mg, 4 mg, intravenous, q8h PRN, Piper Mcintyre MD oxyCODONE (Roxicodone) immediate release tablet 10 mg, 10 mg, oral, q4h PRN, Piper Mcintyre MD, 10 mg at 02/22/24 0553 oxyCODONE (Roxicodone) immediate release tablet 5 mg, 5 mg, oral, q6h PRN, Piper Mcintyre MD [START ON 02/23/2024] ycdkaxflssff-gpdkrykntp-imcodlvd (Zosyn) IV 4.5 g, 4.5 g, intravenous, q6h, Mago Bahena MD vancomycin (Vancocin) capsule 125 mg, 125 mg, oral, 4x daily, Piper Mcintyre MD, 125 mg at 02/22/24 1832 vancomycin (Vancocin) in dextrose 5 % water (D5W) 500 mL IV 1,500 mg, 15 mg/kg, intravenous, q6h, Mago Bahena MD vancomycin (Vancocin) pharmacy to dose - pharmacy monitoring, , miscellaneous, Daily PRN, Piper Mcintyre MD Labs Results for orders placed or performed during the hospital encounter of 02/21/24 (from the past 24 hour(s)) Prepare RBC: 1 Units Result Value Ref Range PRODUCT CODE C8274H47 Unit Number [id number] Unit ABO AB Unit RH POS XM INTEP COMP Dispense Status IS Blood Expiration Date March 07, 2024 23:59 EDT PRODUCT BLOOD TYPE 8400 UNIT VOLUME 350 VERIFY ABO/Rh Group Test Result Value Ref Range ABO TYPE AB Rh TYPE POS CBC Result Value Ref Range WBC 23.0 (H) 4.4 - 11.3 x10*3/uL nRBC 0.0 0.0 - 0.0 /100 WBCs RBC 3.45 (L) 4.00 - 5.20 x10*6/uL Hemoglobin 7.8 (L) 12.0 - 16.0 g/dL Hematocrit 25.8 (L) 36.0 - 46.0 % MCV 75 (L) 80 - 100 fL MCH 22.6 (L) 26.0 - 34.0 pg MCHC 30.2 (L) 32.0 - 36.0 g/dL RDW 18.0 (H) 11.5 - 14.5 % Platelets 440 150 - 450 x10*3/uL Renal Function Panel Result Value Ref Range Glucose 117 (H) 74 - 99 mg/dL Sodium 135 (L) 136 - 145 mmol/L Potassium 4.0 3.5 - 5.3 mmol/L Chloride 101 98 - 107 mmol/L Bicarbonate 22 21 - 32 mmol/L Anion Gap 16 10 - 20 mmol/L Urea Nitrogen 8 6 - 23 mg/dL Creatinine 0.67 0.50 - 1.05 mg/dL eGFR >90 >60 mL/min/1.73m*2 Calcium 7.7 (L) 8.6 - 10.6 mg/dL Phosphorus 4.1 2.5 - 4.9 mg/dL Albumin 2.2 (L) 3.4 - 5.0 g/dL Coagulation Screen Result Value Ref Range Protime 16.6 (H) 9.8 - 12.8 seconds INR 1.5 (H) 0.9 - 1.1 aPTT 28 27 - 38 seconds Magnesium Result Value Ref Range Magnesium 1.76 1.60 - 2.40 mg/dL Iron and TIBC Result Value Ref Range Iron 19 (L) 35 - 150 ug/dL UIBC 163 110 - 370 ug/dL TIBC 182 (L) 240 - 445 ug/dL % Saturation 10 (L) 25 - 45 % Magnesium Result Value Ref Range Magnesium 1.97 1.60 - 2.40 mg/dL Vancomycin Result Value Ref Range Vancomycin 9.3 5.0 - 20.0 ug/mL Comprehensive metabolic panel Result Value Ref Range Glucose 133 (H) 74 - 99 mg/dL Sodium 136 136 - 145 mmol/L Potassium 3.3 (L) 3.5 - 5.3 mmol/L Chloride 101 98 - 107 mmol/L Bicarbonate 28 21 - 32 mmol/L Anion Gap 10 10 - 20 mmol/L Urea Nitrogen 9 6 - 23 mg/dL Creatinine 0.64 0.50 - 1.05 mg/dL eGFR >90 >60 mL/min/1.73m*2 Calcium 7.7 (L) 8.6 - 10.6 mg/dL Albumin 2.0 (L) 3.4 - 5.0 g/dL Alkaline Phosphatase 94 33 - 110 U/L Total Protein 5.4 (L) 6.4 - 8.2 g/dL AST 19 9 - 39 U/L Bilirubin, Total 0.4 0.0 - 1.2 mg/dL ALT 21 7 - 45 U/L Coagulation Screen Result Value Ref Range Protime 19.4 (H) 9.8 - 12.8 seconds INR 1.7 (H) 0.9 - 1.1 aPTT 31 27 - 38 seconds Phosphorus Result Value Ref Range Phosphorus 3.7 2.5 - 4.9 mg/dL Ferritin Result Value Ref Range Ferritin 273 (H) 8 - 150 ng/mL Lactate dehydrogenase Result Value Ref Range LDH 181 84 - 246 U/L CBC Result Value Ref Range WBC 18.3 (H) 4.4 - 11.3 x10*3/uL nRBC 0.0 0.0 - 0.0 /100 WBCs RBC 2.87 (L) 4.00 - 5.20 x10*6/uL Hemoglobin 6.4 (LL) 12.0 - 16.0 g/dL Hematocrit 22.4 (L) 36.0 - 46.0 % MCV 78 (L) 80 - 100 fL MCH 22.3 (L) 26.0 - 34.0 pg MCHC 28.6 (L) 32.0 - 36.0 g/dL RDW 17.1 (H) 11.5 - 14.5 % Platelets 376 150 - 450 x10*3/uL Reticulocytes Result Value Ref Range Retic % 1.1 0.5 - 2.0 % Retic Absolute 0.032 0.018 - 0.083 x10*6/uL Reticulocyte Hemoglobin 18 (L) 28 - 38 pg Immature Retic fraction 11.6 <=16.0 % 08/2023 calprotectin 564 Imaging GI Procedures ASSESSMENT / PLAN ASSESSMENT/PLAN: Sheri South is a 33 y.o. female with a past medical history of UC, transferred from [facility] on 02/21/2024 for evaluation of possible necrotizing soft tissue infections of the perineum, now s/p I&D of perineal abscess w/ placement of x2 [place] drains. She was found to have C. Diff. GI is consulted for assistance with UC and C diff management. Recommendations: - Appreciate ID assistance w/ C. Diff management. - Do not start steroids in light of C. Diff and perineal abscess. - When the patient is ready for discharge she will need to be referred to a GI in [place], ideally that takes care of IBD patients. - She will need a colonoscopy (inpatient vs. outpatient) once the infections are under better control to assess for disease severity. The above recommendations were communicated to the ACS team. Patient was seen and discussed with Dr. Spence. Gastroenterology will continue to follow. During weekday hours of 7am-5pm please do not hesitate to contact me on [place] [employer] Chat or page [phone], ifthere are any further questions between the weekday hours of 7am-5pm. After hours, on weekends, and on holidays, [place] [phone]. Thank you. Tona Amador MD PGY-4 Gastroenterology and Hepatology Fellow [facility] Associated attestation - Ethan Spence MD - 02/23/2024 7:56 AM EDT GI CONSULT ATTENDING NOTE: I saw and evaluated the patient. I personally obtained the cordova and critical portions of the historyand physical exam or was physically present for cordova and critical portions performed by the fellow/resident/medical student. I agree with the trainee's medical decision making as described in the trainee's note with the exception as noted below. The total time spent on the floor rendering services for this patient (obtaining/reviewing additional history, performing medically appropriate exam and/or evaluation, reviewing the electronic chart, labs, imaging, independently interpreting the results and communicating and discussing with medical teams, counseling and educating the patient, discussing with family members, ordering medications, tests and/or procedures, coordinating care, and documentation) was 80 minutes. More than 50% of the time was required for counseling and coordinating care. Please obtain records from previous electrical and instrumentation mechanic. There are no outside hospital records in patient's blue chart folder. Unclear when PO vancomycin initiated; patient reports she was only started on this medication yesterday. Need confirmation of when vancomycin was started. Patient was dissatisfied with care provided by her previous electrical and instrumentation mechanic and felt that the mesalamine that was prescribed was causing her worsening symptoms, although her symptoms have since worsened on no therapy. She previously was against the use of corticosteriods for treatment of her UC, but it appears that she had poor understanding of the use of corticosteroids in the management of UC and the other options for medical management. Given current infection and perineal abscess, would hold off on any immunosuppression at this time. C difficile infection will be prolonged in setting of concurrent antibiotics given for abscess. Patient and wish to have follow up closer to home; likely will needrepeat colonoscopy once infection cleared for ulcerative colitis disease activity assessement, either as inpatient before discharge or as outpatient shortly after discharge. Ethan Spence MD, MELISA Chief Medical Loan Interviewer [facility] Associate Chief and Director of Clinical Operations Division of Gastroenterology & Liver Disease Master Clinician [facility] professional builder [facility] Work Phone: [phone] Consult note* Tona Amador MD - 02/22/2024 1:47 PM EDTAssociated Order(s): IP CONSULT TO GASTROENTEROLOGY [facility] Digestive [facility] [place] INITIAL CONSULT NOTE Reason For Consult Assistance with UC and C diff management SUBJECTIVE History Of Present Illness Sheri Brannon is a 33 y.o. female with a past medical history of UC, transferred from [facility] on 02/21/2024 for evaluation of possible necrotizing soft tissue infections of the perineum, now s/p I&D of perineal abscess w/ placement of x2 Porsha drains. She was found to have C. Diff. GI is consulted for assistance with UC and C diff management. Patient and provide the history. Patient says that in September she underwent a colonoscopy for bloody diarrhea and weight loss, and was diagnosed with UC. She has x2 first cousins that have UC. Initially she was treated with steroids with improvement of symptoms. Then she saw a local GI thatprescribed mesalamine. The patient says that all of her symptoms got worse on the mesalamine. She was attempting to control her symptoms with fiber and probiotics and feel like that helped some. Thenrecently she was treated for cellulitis with ciprofloxacin when all her symptoms worsened. Sounds like she has been having urgency and accidents. Per chart review she was diagnosed with C. Diff at [facility] and started on PO vancomycin on the ?02/21/2024. She says today was the first day she was able to get to the bathroom on time. SH: Denied tobacco, alcohol, and recreational drug use. Review of Systems 12-point ROS has been reviewed and is negative, except if mentioned otherwise above. Past Medical History: History reviewed. No pertinent past medical history. Home Medications No medications prior to admission. Surgical History: History reviewed. No pertinent surgical history. Allergies: No Known Allergies Social History: Social History Socioeconomic History Marital status: Spouse name: Not on file Number of children: Not on file Years of education: Not on file Highest education level: Not on file Occupational History Not on file Tobacco Use Smoking status: Never Smokeless tobacco: Never Substance and Sexual Activity Alcohol use: Never Drug use: Never Sexual activity: Defer Other Topics Concern Not on file Social History Narrative Not on file Social Determinants of Health Financial Resource Strain: Low Risk (02/22/2024) Overall Financial Resource Strain (CARDIA) Difficulty of Paying Living Expenses: Not hard at all Food Insecurity: No Food Insecurity (02/22/2024) Hunger Vital Sign Worried About Running Out of Food in the Last Year: Never true Ran Out of Food in the Last Year: Never true Transportation Needs: No Transportation Needs (02/22/2024) PRAPARE - Transportation Lack of Transportation (Medical): No Lack of Transportation (Non-Medical): No Physical Activity: Sufficiently Active (02/22/2024) Exercise Vital Sign Days of Exercise per Week: 5 days Minutes of Exercise per Session: 60 min Stress: No Stress Concern Present (02/22/2024) [employer] [place] [employer] - Occupational Stress Questionnaire Feeling of Stress : Only a little Social Connections: Not on file Intimate Partner Violence: Not on file Housing Stability: Low Risk (02/22/2024) Housing Stability Vital Sign Unable to Pay for Housing in the Last Year: No Number of Places Lived in the Last Year: 1 Unstable Housing in the Last Year: No Family History: No family history on file. EXAM Vitals: Vitals: 02/22/24 1550 02/22/24 1744 02/22/24 1745 02/22/24 1800 BP: 107/70 105/72 98/62 BP Location: Left arm Patient Position: Lying Pulse: 101 96 99 Resp: 18 18 18 16 Temp: 35.8 C (96.4 F) 36 C (96.8 F) 36.8 C (98.2 F) TempSrc: Temporal Temporal Temporal Temporal SpO2: 96% 96% Weight: Height: Failed to redirect to the Timeline version of the [employer] SmartLink. Intake/Output Summary (Last 24 hours) at 02/22/20241916 Last data filed at 02/22/2024 1130 Gross per 24 hour Intake 2320 ml Output 1060 ml Net 1260 ml Physical Exam GENERAL: In no acute distress. NEUROLOGIC: A and O x 3. Cranial nerves 2 through 12 grossly intact. Intact motor and sensory systems. HEENT: Pupils are equal, round, and reactive to light and accommodation. Extraocular motion intact.No scleral icterus. CARDIAC: S1 + S2, RRR, no M/R/G. LUNGS: CTA BL. No wheezes or coarse breath sounds. Symmetric respirations. No increased work of breathing. ABDOMEN: Soft, non-tender to palpation. No rebound or guarding. PSYCH: Appropriate mood and behavior. OBJECTIVE Medications Current Facility-Administered Medications: acetaminophen (Tylenol) tablet 650 mg, 650 mg, oral, q6h, Piper Mcintyre MD, 650 mg at 02/22/24 1439 enoxaparin (Lovenox) syringe 40 mg, 40 mg, subcutaneous, q24h, Piper Mcintyre MD, 40 mg at 02/22/24 1833 iron sucrose (Venofer) 300 mg in sodium chloride 0.9% 250 mL IV, 300 mg, intravenous, Daily, Nam Pelayo APRN-ISAIAH naloxone (Narcan) injection 0.2 mg, 0.2 mg, intravenous, q5 min PRN, Piper Mcintyre MD ondansetron (Zofran) injection 4 mg, 4 mg, intravenous, q8h PRN, Piper Mcintyre MD oxyCODONE (Roxicodone) immediate release tablet 10 mg, 10 mg, oral, q4h PRN, Piper Mcintyre MD, 10 mg at 02/22/24 0553 oxyCODONE (Roxicodone) immediate release tablet 5 mg, 5 mg, oral, q6h PRN, Piper Mcintyre MD [START ON 02/23/2024] taepzdpjkejg-rcpdstxlcv-ooolcisw (Zosyn) IV 4.5 g, 4.5 g, intravenous, q6h, Mago Bahena MD vancomycin (Vancocin) capsule 125 mg, 125 mg, oral, 4x daily, Piper Mcintyre MD, 125 mg at 02/22/24 1832 vancomycin (Vancocin) in dextrose 5 % water (D5W) 500 mL IV 1,500 mg, 15 mg/kg, intravenous, q6h, Mago Bahena MD vancomycin (Vancocin) pharmacy to dose - pharmacy monitoring, , miscellaneous, Daily PRN, Piper Mcintyre MD Labs Results for orders placed or performed during the hospital encounter of 02/21/24 (from the past 24 hour(s)) Prepare RBC: 1 Units Result Value Ref Range PRODUCT CODE [id number] Unit Number [id number] Unit ABO AB Unit RH POS XM INTEP COMP Dispense Status IS Blood Expiration Date March 07, 2024 23:59 EDT PRODUCT BLOOD TYPE 8400 UNIT VOLUME 350 VERIFY ABO/Rh Group Test Result Value Ref Range ABO TYPE AB Rh TYPE POS CBC Result Value Ref Range WBC 23.0 (H) 4.4 - 11.3 x10*3/uL nRBC 0.0 0.0 - 0.0 /100 WBCs RBC 3.45 (L) 4.00 - 5.20 x10*6/uL Hemoglobin 7.8 (L) 12.0 - 16.0 g/dL Hematocrit 25.8 (L) 36.0 - 46.0 % MCV 75 (L) 80 - 100 fL MCH 22.6 (L) 26.0 - 34.0 pg MCHC 30.2 (L) 32.0 - 36.0 g/dL RDW 18.0 (H) 11.5 - 14.5 % Platelets 440 150 - 450 x10*3/uL Renal Function Panel Result Value Ref Range Glucose 117 (H) 74 - 99 mg/dL Sodium 135 (L) 136 - 145 mmol/L Potassium 4.0 3.5 - 5.3 mmol/L Chloride 101 98 - 107 mmol/L Bicarbonate 22 21 - 32 mmol/L Anion Gap 16 10 - 20 mmol/L Urea Nitrogen 8 6 - 23 mg/dL Creatinine 0.67 0.50 - 1.05 mg/dL eGFR >90 >60 mL/min/1.73m*2 Calcium 7.7 (L) 8.6 - 10.6 mg/dL Phosphorus 4.1 2.5 - 4.9 mg/dL Albumin 2.2 (L) 3.4 - 5.0 g/dL Coagulation Screen Result Value Ref Range Protime 16.6 (H) 9.8 - 12.8 seconds INR 1.5 (H) 0.9 - 1.1 aPTT 28 27 - 38 seconds Magnesium Result Value Ref Range Magnesium 1.76 1.60 - 2.40 mg/dL Iron and TIBC Result Value Ref Range Iron 19 (L) 35 - 150 ug/dL UIBC 163 110 - 370 ug/dL TIBC 182 (L) 240 - 445 ug/dL % Saturation 10 (L) 25 - 45 % Magnesium Result Value Ref Range Magnesium 1.97 1.60 - 2.40 mg/dL Vancomycin Result Value Ref Range Vancomycin 9.3 5.0 - 20.0 ug/mL Comprehensive metabolic panel Result Value Ref Range Glucose 133 (H) 74 - 99 mg/dL Sodium 136 136 - 145 mmol/L Potassium 3.3 (L) 3.5 - 5.3 mmol/L Chloride 101 98 - 107 mmol/L Bicarbonate 28 21 - 32 mmol/L Anion Gap 10 10 - 20 mmol/L Urea Nitrogen 9 6 - 23 mg/dL Creatinine 0.64 0.50 - 1.05 mg/dL eGFR >90 >60 mL/min/1.73m*2 Calcium 7.7 (L) 8.6 - 10.6 mg/dL Albumin 2.0 (L) 3.4 - 5.0 g/dL Alkaline Phosphatase 94 33 - 110 U/L Total Protein 5.4 (L) 6.4 - 8.2 g/dL AST 19 9 - 39 U/L Bilirubin, Total 0.4 0.0 - 1.2 mg/dL ALT 21 7 - 45 U/L Coagulation Screen Result Value Ref Range Protime 19.4 (H) 9.8 - 12.8 seconds INR 1.7 (H) 0.9 - 1.1 aPTT 31 27 - 38 seconds Phosphorus Result Value Ref Range Phosphorus 3.7 2.5 - 4.9 mg/dL Ferritin Result Value Ref Range Ferritin 273 (H) 8 - 150 ng/mL Lactate dehydrogenase Result Value Ref Range LDH 181 84 - 246 U/L CBC Result Value Ref Range WBC 18.3 (H) 4.4 - 11.3 x10*3/uL nRBC 0.0 0.0 - 0.0 /100 WBCs RBC 2.87 (L) 4.00 - 5.20 x10*6/uL Hemoglobin 6.4 (LL) 12.0 - 16.0 g/dL Hematocrit 22.4 (L) 36.0 - 46.0 % MCV 78 (L) 80 - 100 fL MCH 22.3 (L) 26.0 - 34.0 pg MCHC 28.6 (L) 32.0 - 36.0 g/dL RDW 17.1 (H) 11.5 - 14.5 % Platelets 376 150 - 450 x10*3/uL Reticulocytes Result Value Ref Range Retic % 1.1 0.5 - 2.0 % Retic Absolute 0.032 0.018 - 0.083 x10*6/uL Reticulocyte Hemoglobin 18 (L) 28 - 38 pg Immature Retic fraction 11.6 <=16.0 % 08/2023 calprotectin 564 Imaging GI Procedures ASSESSMENT / PLAN ASSESSMENT/PLAN: Sheri South is a 33 y.o. female with a past medical history of UC, transferred from [facility] on 02/21/2024 for evaluation of possible necrotizing soft tissue infections of the perineum, now s/p I&D of perineal abscess w/ placement of x2 [place] drains. She was found to have C. Diff. GI is consulted for assistance with UC and C diff management. Recommendations: - Appreciate ID assistance w/ C. Diff management. - Do not start steroids in light of C. Diff and perineal abscess. - When the patient is ready for discharge she will need to be referred to a GI in [facility], ideally that takes care of IBD patients. - She will need a colonoscopy (inpatient vs. outpatient) once the infections are under better control to assess for disease severity. The above recommendations were communicated to the ACS team. Patient was seen and discussed with Dr. Spence. Gastroenterology will continue to follow. During weekday hours of 7am-5pm please do not hesitate to contact me on [place] [employer] Chat [place] page [phone], ifthere are any further questions between the weekday hours of 7am-5pm. After hours, on weekends, and on holidays, [place] [phone]. Thank you. Tona Amador MD PGY-4 Gastroenterology and Hepatology Fellow [facility] Associated attestation - Ethan Spence MD - 02/23/2024 7:56 AM EDT GI CONSULT ATTENDING NOTE: I saw and evaluated the patient. I personally obtained the cordova and critical portions of the historyand physical exam or was physically present for cordova and critical portions performed by the fellow/resident/medical student. I agree with the trainee's medical decision making as described in the trainee's note with the exception as noted below. The total time spent on the floor rendering services for this patient (obtaining/reviewing additional history, performing medically appropriate exam and/or evaluation, reviewing the electronic chart, labs, imaging, independently interpreting the results and communicating and discussing with medical teams, counseling and educating the patient, discussing with family members, ordering medications, tests and/or procedures, coordinating care, and documentation) was 80 minutes. More than 50% of the time was required for counseling and coordinating care. Please obtain records from previous electrical and instrumentation mechanic. There are no outside hospital records in patient's blue chart folder. Unclear when PO vancomycin initiated; patient reports she was only started on this medication yesterday. Need confirmation of when vancomycin was started. Patient was dissatisfied with care provided by her previous electrical and instrumentation mechanic and felt that the mesalamine that was prescribed was causing her worsening symptoms, although her symptoms have since worsened on no therapy. She previously was against the use of corticosteriods for treatment of her UC, but it appears that she had poor understanding of the use of corticosteroids in the management of UC and the other options for medical management. Given current infection and perineal abscess, would hold off on any immunosuppression at this time. C difficile infection will be prolonged in setting of concurrent antibiotics given for abscess. Patient and wish to have follow up closer to home; likely will needrepeat colonoscopy once infection cleared for ulcerative colitis disease activity assessement, either as inpatient before discharge or as outpatient shortly after discharge. Ethan Spence MD, EMLISA Chief Medical Loan Interviewer [facility] [place] Associate Chief and Director of Clinical Operations Division of Gastroenterology & Liver Disease Master Clinician [facility] professional builder [facility] * Patito Roper MD - 02/22/2024 1:13 PM EDTAssociated Order(s): Inpatient consult to Infectious Diseases Inpatient consult to Infectious Diseases Consult performed by: Patito Roper MD Consult ordered by: Edy Pelayo APRN-REGULATORY AFFAIRS STRATEGY SPECIALIST Primary MD: No primary care provider on file. Reason For Consult: NSTI in setting of c diff and ulcerative colitis History Of Present Illness Sheri South is a 33-year-old female with past medical history of ulcerative colitis presented on 02/20 as a transfer from primary hospital for concerns of necrotizing fasciitis. Patient was in her usual state of health until 02/12 when she experienced redness in her bilateral lower extremities and was treated with cephalexin for concerns of cellulitis. Redness improved remarkably but then she started noticing bumps on her left gluteal region along with diarrhea. The bumps started to become painful and bigger on 02/20 prompting her to come to the ED. CT scan was done which revealed necrotizing fasciitis. Patient was started on IV vancomycin, pip- tazo, and clindamycin at the outside hospital. Because of diarrhea patient was also tested for C. difficile which came back positive at OSH and patient was started on p.o. vancomycin. For further management for necrotizing fasciitis she was sent to [facility]. Course at [facility]: ACS was consulted and patient was taken to the OR same day. Intraoperatively ashley purulent fluid was noted which was sent for culture. Porsha drains were left in place. Past Medical History She has no past medical history on file. Surgical History She has no past surgical history on file. Social History Occupational History Not on file Tobacco Use Smoking status: Never Smokeless tobacco: Never Substance and Sexual Activity Alcohol use: Never Drug use: Never Sexual activity: Defer Travel History Travel since 01/22/24 No documented travel since 01/22/24 Family History No family history on file. Allergies Patient has no known allergies. There is no immunization history on file for this patient. Medications Home medications: No medications prior to admission. Current medications: Scheduled medications acetaminophen, 650 mg, oral, q6h clindamycin, 900 mg, intravenous, q8h enoxaparin, 40 mg, subcutaneous, q24h piperacillin-tazobactam, 3.375 g, intravenous, q6h vancomycin, 125 mg, oral, 4x daily vancomycin, 15 mg/kg, intravenous, q12h Continuous medications PRN medications PRN medications: naloxone, ondansetron, oxyCODONE, oxyCODONE, vancomycin Review of Systems Negative except as above Objective Range of Vitals (last 24 hours) Heart Rate: [78-141] Temp: [35.8 C (96.4 F)-36.7 C (98.1 F)] Resp: [9-24] BP: (99-190)/(54-72) Height: [160 cm (5' 3)] Weight: [89.8 kg (198 lb)] SpO2: [90 %-99 %] Daily Weight 02/21/24 : 89.8 kg (198 lb) Body mass index is 35.07 kg/m . Physical Exam General: Patient is laying in bed, in no acute distress. HEENT: Anicteric sclera, no conjunctival pallor. No oral sores/ulcers. No dental caries. CVS: S1/S2 audible, no M/G/R. Resp: Breathing comfortably on RA. Normal vesicular breathing. No wheezing, crackles or rhonchi auscultated. Abd: Non distended, non tender, no organomegaly was appreciated. +BS. Porsha drain in place in gluteal area. Discharge noted on the ranjit. TEACHER PRIVATE: AAO x4. No gross focal deficits appreciated. Skin: No rashes or wounds seen. Relevant Results Outside Hospital Results Yes - Labs Results from last 72 hours Lab Units 02/22/2494302/21/24225602/21/24 1814 WBC AUTO x10*3/uL 18.3* 23.0* 22.2* HEMOGLOBIN g/dL 6.4* 7.8* 6.1* HEMATOCRIT % 22.4* 25.8* 20.4* PLATELETS AUTO x10*3/uL 376 440 386 NEUTROS PCT AUTO % -- -- 86.7 LYMPHS PCT AUTO % -- -- 8.7 MONOS PCT AUTO % -- -- 3.3 EOS PCT AUTO % -- -- 0.0 Results from last 72 hours Lab Units 02/22/2494202/21/24225602/21/24 1814 SODIUM mmol/L 136 135* 135* POTASSIUM mmol/L 3.3* 4.0 3.3* CHLORIDE mmol/L 101 101 101 CO2 mmol/L 28 22 22 BUN mg/dL 9 8 7 CREATININE mg/dL 0.64 0.67 0.60 GLUCOSE mg/dL 133* 117* 97 CALCIUM mg/dL 7.7* 7.7* 7.6* ANION GAP mmol/L 10 16 15 EGFR mL/min/1.73m*2 >90 >90 >90 PHOSPHORUS mg/dL 3.7 4.1 -- Results from last 72 hours Lab Units 02/22/2443 02/21/24225602/21/24 1814 ALK PHOS U/L 94 -- 106 106 BILIRUBIN TOTAL mg/dL 0.4 -- 0.4 0.4 BILIRUBIN DIRECT mg/dL -- -- 0.0 PROTEIN TOTAL g/dL 5.4* -- 6.3* 6.3* ALT U/L 21 -- 24 24 AST U/L 19 -- 19 19 ALBUMIN g/dL 2.0* 2.2* 2.3* 2.3* Estimated Creatinine Clearance: 125 mL/min (by C-G formula based on SCr of 0.64 mg/dL). No results found for: CRP, SEDRATE No results found for: HIV1X2, HIVCONF, [id number] No results found for: HEPCABINIT, HEPCAB, HCVPCRQUANT Imaging CXR: 02/20: No acute cardiopulmonary disease. Micro: 02/20: Tissue wound Cx: NGTD Abx: IV Vancomycin: 02/20 - p PipTazo: 02/20 - p Clindamycin: 02/20 - p PO Vancomycin: 02/20 - p Assessment/Plan 33-year-old female with past medical history of ulcerative colitis presented on 02/20 as a transfer from [facility] for concerns of necrotizing fasciitis. Intra-operatively there was no concern of nec fasc, but was found to have a perineal abscess which was drained and sent for culture, now with porsha drain in place. Also found to be C Diff positive at OSH and ID consulted for abx recs. Clinical Impression: Perineal Abscess s/p drainage on 02/20, C Diff positive Recommendations: Increase the dose of PO Vancomycin to 500 Q6H. Repeat C Diff PCR and toxin Discontinue Clindamycin. Continue IV Vancomycin and Piptazo. Increase the dose of Piptazo to 4.5G Q6H to cover for Pseudomonas. Plan was discussed with ID attending Dr Godinez. We will continue to follow the patient. Patito Roper MD PGY4, ID Fellow. Team B Pager: [phone] For new consults, contact pager [phone]. EPIC chat preferred. Patito Roper MD Associated attestation - Abimael Stahl MD - 02/22/2024 9:33 PM EDT I saw and evaluated the patient. I personally obtained the cordova and critical portions of the historyand physical exam or was physically present for cordova and critical portions performed by the resident/fellow. I reviewed the resident/fellow's documentation and discussed the patient with the resident/f jamil. I agree with the resident/fellow's medical decision making as documented in the note. * Rosalba Reyes MD - 02/22/2024 12:05 PM EDTAssociated Order(s): IP CONSULT TO HEMATOLOGY Reason For Consult anemia History Of Present Illness Sheri South is a 33 y.o. female presenting with history of UC who presents as a transfer for evaluation for possible NSTI of perineum. Patient presented to OSH 02/20 with perianal pain and was found to be C diff positive, with imaging concerning for a possibly necrotizing perianal abscess. She reported had moderate pain in her bottom for the last several days, accompanied with diarrhea, fever, chills, N/V, and loss of appetite. She was recently given a 10-day course of Keflex for LLE cellulitis, which has since resolved. Reports chronic bloody stools. UC dx in Sep 2023. She was previously on mesalamine but says that made her symptoms worse. Not on current treatment. She was transferred to for surgical evaluation. On arrival tachycardic to the 120's. On physicalexam, there was clear induration of the L gluteal cleft but no obvious crepitus, drainage or skin changes. Imaging shows air tracking with possible fistulous tract to rectum (unclear). Labs showed CBC 22.2/6.1 MCV 71/ 386 PT 24.5 aPTT 23 INR 2.2 Cr 0.60 Tbili 0.4 ALT 24 AST 19 She was admitted to [facility]. She received 1u pRBC, Kcentra and went to OR 02/20 for I&D perineal abscess with placement of porsha x2. Per OR report 25 ml blood loss. Labs post-OR Hgb up to 7.8, INR 1.5 PT 16.6 aPTT 28 Iron 19 Tsat 10% TIBC 182. Today Hgb 6.4 INR 1.7 PT 19.4 aPTT 31. Hematology consulted for anemia wup. She denies hx of of menorrhagia. Previous iron deficiency anemia during past 2 pregnancies. PMH: UC PSH: FH: Diabetes in mother. No family history of anemia or bleeding disorders. SOCIAL HISTORY: Adventist, lives in [place]. 2 children Smoking: Denies Alcohol: Denies Drug use: Denies MEDICATIONS: Not taking any currently ALLERGIES: No Known Allergies Physical Exam Gen: awake, alert, in no acute distress Pulm: on RA Abd: non distended Ext: no LE edema Neuro: A&Ox4, moves all 4 extremities spontaneously Last Recorded Vitals Blood pressure 102/68, pulse 97, temperature 36.6 C (97.9 F), resp. rate 18, height 1.6 m (5' 3), weight 89.8 kg (198 lb), SpO2 96%. Relevant Results Lab Results Component Value Date WBC 18.3 (H) 02/22/2024 HGB 6.4 (LL) 02/22/2024 HCT 22.4 (L) 02/22/2024 MCV 78 (L) 02/22/2024 PLT 376 02/22/2024 Lab Results Component Value Date CREATININE 0.64 02/22/2024 BUN 9 02/22/2024 NA 136 02/22/2024 K 3.3 (L) 02/22/2024 CL 101 02/22/2024 CO2 28 02/22/2024 Lab Results Component Value Date ALT 21 02/22/2024 AST 19 02/22/2024 ALKPHOS 94 02/22/2024 BILITOT 0.4 02/22/2024 INR 1.7 aPTT 31 PT 19.4 Assessment/Plan Sheri South is a 33 y.o. female PMH history of UC (not on treatment) presenting with C diff infection c/b perineal absces s/p I&D 02/20. On admission, patient noted to have microcytic anemia and prolonged PT, for which she received intraoperatively Kcentra and 1u RBC. Today Hgb 6.4 INR 1.7 PT 19.4 aPTT 31. Iron 19 Tsat 10% TIBC 182. Hematology consulted for anemia wup. Pt reports previous ADRIEL during and chronic bloody stools from UC. No past CBCs for comparison. Iron panel suggestive of ADRIEL. Anemia likely 2/2 to chronic blood loss.A component of anemia of inflammation is possible given active UC, not on treatment, as well as acute C diff infection. Prolonged PT could be in the setting of vitamin K deficiency from malabsorptionas well as recent/current antibiotic use. Recommendations: -Please add on ferritin, reticulocytes, LDH, haptoglobin, B12, folate -Recommend IV iron (iron sucrose 300 mg x 3 days -Recommend Vitamin K 10 mg once -Transfuse if Hgb < 7 -Avoid excessive blood draws -Will likely need to continue IV iron therapy as outpatient until UC better controlled Seen and discussed with Dr Jama. Rosalba Ford MD Hematology Oncology fellow, PGY-5 Pager [phone] Associated attestation - Husam Jama MD - 02/23/2024 3:34 PM EDT I saw and evaluated the patient. I personally obtained the cordova and critical portions of the historyand physical exam or was physically present for cordova and critical portions performed by the resident/fellow. I reviewed the resident/fellow's documentation and discussed the patient with the resident/f jamil. I agree with the resident/fellow's medical decision making as documented in the note. Patient is a 33yo F with ulcerative colitis and abscess who presents for evaluation and treatment of abscess and UC. Reason for consult: anemia Pertinent past medical history: Ulcerative Colitis Acute issues: Abscess, anemia Labs reviewed: anemia Imaging reviewed: n/a Meds reviewed: meds reviewed Vitals reviewed: stable Exam: General: Normal appearance Eyes: no jaundice, clear, eye movements intact ENT: Mucous membranes moist, no oral lesions Neck: no lymph adenopathy CV: RRR, no murmur Pulm: CTAB GI: BS+ no tenderness or gaurding Ext: no edema, pulses palpable Neuro: A&Ox3, movements intact Skin: No rashes Psych: Appropriate mood Plan: Looks like iron deficient anemia from GI blood loss - IV iron and vitamin K - Labs looking at anemia causes * Gabyjoyce Hurtado - 02/21/2024 9:09 PM EDTAssociated Order(s): PHARMACY TO DOSE VANCO Vancomycin Dosing by Pharmacy- INITIAL Sheri South is a 33 y.o. year old female who Pharmacy has been consulted for vancomycin dosing for cellulitis, skin and soft tissue. Based on the patient's indication and renal status this patient will be dosed based on a goal AUC of 400-600. Renal function is currently stable. Visit Vitals BP 128/65 Pulse (!) 124 Temp 36.2 C (97.1 F) (Oral) Resp (!) 9 Lab Results Component Value Date CREATININE 0.60 02/21/2024 Patient weight is as follows: Vitals: 02/21/24 1748 Weight: 89.8 kg (198 lb) Cultures: No results found for the encounter in last 14 days. No intake/output data recorded. I/O during current shift: No intake/output data recorded. Temp (24hrs), Av.2 C (97.1 F), Min:36.2 C (97.1 F), Max:36.2 C (97.1 F) Assessment/Plan Patient has already been given a loading dose of 1500 mg. Will initiate vancomycin maintenance, 1500 mg every 12 hours. This dosing regimen is predicted by [employer] to result in the following pharmacokinetic parameters: AUC24,ss: 553 mg/L.hr Probability of AUC24 > 400: 80 % Ctrough,ss: 16.4 mg/L Probability of Ctrough,ss > 20: 35 % Probability of nephrotoxicity (Lodise SHITAL 2008): 12 % Follow-up level will be ordered on 02/21 with AM labs unless clinically indicated sooner. Will continue to monitor renal function daily while on vancomycin and order serum creatinine at least every 48 hours if not already ordered. Follow for continued vancomycin needs, clinical response, and signs/symptoms of toxicity. GABY HURTADO, PharmD documented in [facility] Work Phone: [phone]) [phone] Consult note* Patito Roper MD - 02/22/2024 1:13 PM EDTAssociated Order(s): Inpatient consult to Infectious Diseases Inpatient consult to Infectious Diseases Consult performed by: Patito Roper MD Consult ordered by: Edy Pelayo, [employer] CONSULTANT-REGULATORY AFFAIRS STRATEGY SPECIALIST Primary MD: No primary care provider on file. Reason For Consult: NSTI in setting of c diff and ulcerative colitis History Of Present Illness Sheri South is a 33-year-old female with past medical history of ulcerative colitis presented on 02/20 as a transfer from [facility] for concerns of necrotizing fasciitis. Patient was in her usual state of health until 02/12 when she experienced redness in her bilateral lower extremities and was treated with cephalexin for concerns of cellulitis. Redness improved remarkably but then she started noticing bumps on her left gluteal region along with diarrhea. The bumps started to become painful and bigger on 02/20 prompting her to come to the ED. CT scan was done which revealed necrotizing fasciitis. Patient was started on IV vancomycin, pip- tazo, and clindamycin at the outside hospital. Because of diarrhea patient was also tested for C. difficile which came back positive at OSH and patient was started on p.o. vancomycin. For further management for necrotizing fasciitis she was sent to [facility]. Course at [facility]: [facility] was consulted and patient was taken to the OR same day. Intraoperatively ashley purulent fluid was noted which was sent for culture. Porsha drains were left in place. Past Medical History She has no past medical history on file. Surgical History She has no past surgical history on file. Social History Occupational History Not on file Tobacco Use Smoking status: Never Smokeless tobacco: Never Substance and Sexual Activity Alcohol use: Never Drug use: Never Sexual activity: Defer Travel History Travel since 01/22/24 No documented travel since 01/22/24 Family History No family history on file. Allergies Patient has no known allergies. There is no immunization history on file for this patient. Medications Home medications: No medications prior to admission. Current medications: Scheduled medications acetaminophen, 650 mg, oral, q6h clindamycin, 900 mg, intravenous, q8h enoxaparin, 40 mg, subcutaneous, q24h piperacillin-tazobactam, 3.375 g, intravenous, q6h vancomycin, 125 mg, oral, 4x daily vancomycin, 15 mg/kg, intravenous, q12h Continuous medications PRN medications PRN medications: naloxone, ondansetron, oxyCODONE, oxyCODONE, vancomycin Review of Systems Negative except as above Objective Range of Vitals (last 24 hours) Heart Rate: [78-141] Temp: [35.8 C (96.4 F)-36.7 C (98.1 F)] Resp: [9-24] BP: (99-190)/(54-72) Height: [160 cm (5' 3)] Weight: [89.8 kg (198 lb)] SpO2: [90 %-99 %] Daily Weight 02/21/24 : 89.8 kg (198 lb) Body mass index is 35.07 kg/m . Physical Exam General: Patient is laying in bed, in no acute distress. HEENT: Anicteric sclera, no conjunctival pallor. No oral sores/ulcers. No dental caries. CVS: S1/S2 audible, no M/G/R. Resp: Breathing comfortably on RA. Normal vesicular breathing. No wheezing, crackles or rhonchi auscultated. Abd: Non distended, non tender, no organomegaly was appreciated. +BS. Porsha drain in place in gluteal area. Discharge noted on the ranjit. TEACHER PRIVATE: AAO x4. No gross focal deficits appreciated. Skin: No rashes or wounds seen. Relevant Results Outside Hospital Results Yes - Labs Results from last 72 hours Lab Units 02/22/2494302/21/24225602/21/241813 WBC AUTO x10*3/uL 18.3* 23.0* 22.2* HEMOGLOBIN g/dL 6.4* 7.8* 6.1* HEMATOCRIT % 22.4* 25.8* 20.4* PLATELETS AUTO x10*3/uL 376 440 386 NEUTROS PCT AUTO % -- -- 86.7 LYMPHS PCT AUTO % -- -- 8.7 MONOS PCT AUTO % -- -- 3.3 EOS PCT AUTO % -- -- 0.0 Results from last 72 hours Lab Units 02/22/2494202/21/24225602/21/24 1814 SODIUM mmol/L 136 135* 135* POTASSIUM mmol/L 3.3* 4.0 3.3* CHLORIDE mmol/L 101 101 101 CO2 mmol/L 28 22 22 BUN mg/dL 9 8 7 CREATININE mg/dL 0.64 0.67 0.60 GLUCOSE mg/dL 133* 117* 97 CALCIUM mg/dL 7.7* 7.7* 7.6* ANION GAP mmol/L 10 16 15 EGFR mL/min/1.73m*2 >90 >90 >90 PHOSPHORUS mg/dL 3.7 4.1 -- Results from last 72 hours Lab Units 02/22/2494202/21/24225602/21/24 1814 ALK PHOS U/L 94 -- 106 106 BILIRUBIN TOTAL mg/dL 0.4 -- 0.4 0.4 BILIRUBIN DIRECT mg/dL -- -- 0.0 PROTEIN TOTAL g/dL 5.4* -- 6.3* 6.3* ALT U/L 21 -- 24 24 AST U/L 19 -- 19 19 ALBUMIN g/dL 2.0* 2.2* 2.3* 2.3* Estimated Creatinine Clearance: 125 mL/min (by C-G formula based on SCr of 0.64 mg/dL). No results found for: CRP, SEDRATE No results found for: HIV1X2, HIVCONF, PFKVFL0CG No results found for: HEPCABINIT, HEPCAB, HCVPCRQUANT Imaging CXR: 02/20: No acute cardiopulmonary disease. Micro: 02/20: Tissue wound Cx: NGTD Abx: IV Vancomycin: 02/20 - p PipTazo: 02/20 - p Clindamycin: 02/20 - p PO Vancomycin: 02/20 - p Assessment/Plan 33-year-old female with past medical history of ulcerative colitis presented on 02/20 as a transfer from [facility] for concerns of necrotizing fasciitis. Intra-operatively there was no concern of nec fasc, but was found to have a perineal abscess which was drained and sent for culture, now with porsha drain in place. Also found to be C Diff positive at OSH and ID consulted for abx recs. Clinical Impression: Perineal Abscess s/p drainage on 02/20, C Diff positive Recommendations: Increase the dose of PO Vancomycin to 500 Q6H. Repeat C Diff PCR and toxin Discontinue Clindamycin. Continue IV Vancomycin and Piptazo. Increase the dose of Piptazo to 4.5G Q6H to cover for Pseudomonas. Plan was discussed with ID attending Dr Godinez. We will continue to follow the patient. Patito Roper MD PGY4, ID Fellow. Team B Pager: [phone] For new consults, contact pager [phone]. EPIC chat preferred. Patito Roper MD Associated attestation - Abimael Stahl MD - 02/22/2024 9:33 PM EDT I saw and evaluated the patient. I personally obtained the cordova and critical portions of the historyand physical exam or was physically present for cordova and critical portions performed by the resident/fellow. I reviewed the resident/fellow's documentation and discussed the patient with the resident/f jamil. I agree with the resident/fellow's medical decision making as documented in the note. [facility] Work Phone: [phone] 576-614006-05-2024 Consult note* Rosalba Reyes MD - 02/22/2024 12:05 PM EDTAssociated Order(s): IP CONSULT TO HEMATOLOGY Reason For Consult anemia History Of Present Illness Sheri South is a 33 y.o. female presenting with history of UC who presents as a transfer for evaluation for possible NSTI of perineum. Patient presented to OSH 02/20 with perianal pain and was found to be C diff positive, with imaging concerning for a possibly necrotizing perianal abscess. She reported had moderate pain in her bottom for the last several days, accompanied with diarrhea, fever, chills, N/V, and loss of appetite. She was recently given a 10-day course of Keflex for LLE cellulitis, which has since resolved. Reports chronic bloody stools. UC dx in Sep 2023. She was previously on mesalamine but says that made her symptoms worse. Not on current treatment. She was transferred to for surgical evaluation. On arrival tachycardic to the 120's. On physicalexam, there was clear induration of the L gluteal cleft but no obvious crepitus, drainage or skin changes. Imaging shows air tracking with possible fistulous tract to rectum (unclear). Labs showed CBC 22.2/6.1 MCV 71/ 386 PT 24.5 aPTT 23 INR 2.2 Cr 0.60 Tbili 0.4 ALT 24 AST 19 She was admitted to [facility]. She received 1u pRBC, Kcentra and went to OR 02/20 for I&D perineal abscess with placement of porsha x2. Per OR report 25 ml blood loss. Labs post-OR Hgb up to 7.8, INR 1.5 PT 16.6 aPTT 28 Iron 19 Tsat 10% TIBC 182. Today Hgb 6.4 INR 1.7 PT 19.4 aPTT 31. Hematology consulted for anemia wup. She denies hx of of menorrhagia. Previous iron deficiency anemia during past 2 pregnancies. PMH: UC PSH: FH: Diabetes in mother. No family history of anemia or bleeding disorders. SOCIAL HISTORY: Adventist, lives in [place]. 2 children Smoking: Denies Alcohol: Denies Drug use: Denies MEDICATIONS: Not taking any currently ALLERGIES: No Known Allergies Physical Exam Gen: awake, alert, in no acute distress Pulm: on RA Abd: non distended Ext: no LE edema Neuro: A&Ox4, moves all 4 extremities spontaneously Last Recorded Vitals Blood pressure 102/68, pulse 97, temperature 36.6 C (97.9 F), resp. rate 18, height 1.6 m (5' 3), weight 89.8 kg (198 lb), SpO2 96%. Relevant Results Lab Results Component Value Date WBC 18.3 (H) 02/22/2024 HGB 6.4 (LL) 02/22/2024 HCT 22.4 (L) 02/22/2024 MCV 78 (L) 02/22/2024 PLT 376 02/22/2024 Lab Results Component Value Date CREATININE 0.64 02/22/2024 BUN 9 02/22/2024 NA 136 02/22/2024 K 3.3 (L) 02/22/2024 CL 101 02/22/2024 CO2 28 02/22/2024 Lab Results Component Value Date ALT 21 02/22/2024 AST 19 02/22/2024 ALKPHOS 94 02/22/2024 BILITOT 0.4 02/22/2024 INR 1.7 aPTT 31 PT 19.4 Assessment/Plan Sheri South is a 33 y.o. female PMH history of UC (not on treatment) presenting with C diff infection c/b perineal absces s/p I&D 02/20. On admission, patient noted to have microcytic anemia and prolonged PT, for which she received intraoperatively Kcentra and 1u RBC. Today Hgb 6.4 INR 1.7 PT 19.4 aPTT 31. Iron 19 Tsat 10% TIBC 182. Hematology consulted for anemia wup. Pt reports previous ADRIEL during and chronic bloody stools from UC. No past CBCs for comparison. Iron panel suggestive of ADRIEL. Anemia likely 2/2 to chronic blood loss.A component of anemia of inflammation is possible given active UC, not on treatment, as well as acute C diff infection. Prolonged PT could be in the setting of vitamin K deficiency from malabsorptionas well as recent/current antibiotic use. Recommendations: -Please add on ferritin, reticulocytes, LDH, haptoglobin, B12, folate -Recommend IV iron (iron sucrose 300 mg x 3 days -Recommend Vitamin K 10 mg once -Transfuse if Hgb < 7 -Avoid excessive blood draws -Will likely need to continue IV iron therapy as outpatient until UC better controlled Seen and discussed with Dr Jama. Rosalba Ford MD Hematology Oncology fellow, PGY-5 Pager [phone] Associated attestation - Husam Jama MD - 02/23/2024 3:34 PM EDT I saw and evaluated the patient. I personally obtained the cordova and critical portions of the historyand physical exam or was physically present for cordova and critical portions performed by the resident/fellow. I reviewed the resident/fellow's documentation and discussed the patient with the resident/f jamil. I agree with the resident/fellow's medical decision making as documented in the note. Patient is a 33yo F with ulcerative colitis and abscess who presents for evaluation and treatment of abscess and UC. Reason for consult: anemia Pertinent past medical history: Ulcerative Colitis Acute issues: Abscess, anemia Labs reviewed: anemia Imaging reviewed: n/a Meds reviewed: meds reviewed Vitals reviewed: stable Exam: General: Normal appearance Eyes: no jaundice, clear, eye movements intact ENT: Mucous membranes moist, no oral lesions Neck: no lymph adenopathy CV: RRR, no murmur Pulm: CTAB GI: BS+ no tenderness or gaurding Ext: no edema, pulses palpable Neuro: A&Ox3, movements intact Skin: No rashes Psych: Appropriate mood Plan: Looks like iron deficient anemia from GI blood loss - IV iron and vitamin K - Labs looking at anemia causes [facility] Work Phone: 1([phone]) 292-738606-05-2024 Note* Significant Event - Estevan Mcqueen MD - 02/22/2024 5:19 AM EDT Postoperative Check Note Subjective Sheri South is a 33 y.o. female who is now POD0 s/p incision and drainage of perineal abscess. Postoperatively, patient feels well, and denies fevers/chills, n/v, chest pain, shortness of breath. Feels her pain is well-controlled 3-4/10 and appropriate for this time. Patient has been have symptoms of diarrhea since surgery (C diff+) Objective Vitals: Visit Vitals BP 126/72 (BP Location: Right arm, Patient Position: Lying) Pulse 89 Temp 36.2 C (97.2 F) (Temporal) Resp 18 Physical Exam: GEN: No acute distress. Alert, awake and conversive. HEENT: Sclera anicteric. Moist mucous membranes. RESP: Breathing non-labored, equal chest rise. On RA. CV: Regular rate, normotensive GI: Abdomen soft, nondistended, nontender. Left gluteal wound with 2x porsha drains : Voiding spontaneously. MSK: No gross deformities. Moves all extremities spontaneously. NEURO: Alert and oriented x3. No focal deficits. PSYCH: Appropriate mood and affect. SKIN: No rashes or lesions. Most recent labs: 7.8 23.0>-----<440 25.8 135 101 8 <117 4.0 22 0.67 Mg 1.76 Assessment Sheri South is a 33 y.o. female who is now POD0 s/p incision and drainage of perineal abscess. Patient is in stable condition, appropriate for postoperative course. The plan is as follows: - Will continue to optimize pain management, current pain regimen tylenol , oxy 5/10 - Regular diet - PO fluids Estevan Mcqueen MD PGY-1 General Surgery Acute Care Surgery [id number] [facility] Work Phone: [phone] Plan of care note* Care Plan - Anali Greer RN - 02/22/2024 12:43 AM EDT The patient's goals for the shift include The clinical goals for the shift include Over the shift, the patient did not make progress toward the following goals. Barriers to progression include infectionRecommendations to address these barriers include keep area clean and follow poc [facility] Work Phone: 1([phone]) 739-546606-04-2024 Consult note* Gaby Liufavio - 02/21/2024 9:09 PM EDTAssociated Order(s): PHARMACY TO DOSE VANCO Vancomycin Dosing by Pharmacy- INITIAL Sheri South is a 33 y.o. year old female who Pharmacy has been consulted for vancomycin dosing for cellulitis, skin and soft tissue. Based on the patient's indication and renal status this patient will be dosed based on a goal AUC of 400-600. Renal function is currently stable. Visit Vitals BP 128/65 Pulse (!) 124 Temp 36.2 C (97.1 F) (Oral) Resp (!) 9 Lab Results Component Value Date CREATININE 0.60 02/21/2024 Patient weight is as follows: Vitals: 02/21/24 1748 Weight: 89.8 kg (198 lb) Cultures: No results found for the encounter in last 14 days. No intake/output data recorded. I/O during current shift: No intake/output data recorded. Temp (24hrs), Av.2 C (97.1 F), Min:36.2 C (97.1 F), Max:36.2 C (97.1 F) Assessment/Plan Patient has already been given a loading dose of 1500 mg. Will initiate vancomycin maintenance, 1500 mg every 12 hours. This dosing regimen is predicted by [employer] to result in the following pharmacokinetic parameters: AUC24,ss: 553 mg/L.hr Probability of AUC24 > 400: 80 % Ctrough,ss: 16.4 mg/L Probability of Ctrough,ss > 20: 35 % Probability of nephrotoxicity (Lodise SHITAL 2009): 12 % Follow-up level will be ordered on 02/21 with AM labs unless clinically indicated sooner. Will continue to monitor renal function daily while on vancomycin and order serum creatinine at least every 48 hours if not already ordered. Follow for continued vancomycin needs, clinical response, and signs/symptoms of toxicity. GABY HURTADO, PharmD [facility]06-04-2024 Note* Brief Op Note - Mel Guzman DO - 02/21/2024 7:35 PM EDT Date: 02/21/2024 OR Location: [facility] OR Name: Sheri South, : 1990, Age: 33 y.o., , Sex: female Diagnosis Pre-op Diagnosis * Necrotizing fasciitis (Multi) [M72.6] Postop Diagnosis Perineal abscess with anal fissure Procedures I&D perineal abscess with placement of porsha x2 Surgeons * Mel Guzman - Primary Resident/Fellow/Other Refuse Driver: Surgeons and Role: * Piper Mcintyre MD - Resident - Assisting * Gary Morin MD - Resident - Assisting Procedure Summary Anesthesia: General ASA: I Anesthesia Staff: Anesthesiologist: Lory German MD Cotton Grader: Elvia Davis DO; Luis Moreland DO Estimated Blood Loss: 25mL Intra-op Medications: Administrations occurring from 1935 to 2099 on 02/21/24: Medication Name Total Dose acetaminophen (Tylenol) tablet 650 mg Cannot be calculated clindamycin in D5W (Cleocin) IVPB 900 mg 15 mL enoxaparin (Lovenox) syringe 40 mg Cannot be calculated naloxone (Narcan) injection 0.2 mg Cannot be calculated ondansetron (Zofran) injection 4 mg Cannot be calculated oxyCODONE (Roxicodone) immediate release tablet 10 mg Cannot be calculated oxyCODONE (Roxicodone) immediate release tablet 5 mg Cannot be calculated byspuxdnuflq-pzrirkgsql-ovannkng (Zosyn) IV 3.375 g Cannot be calculated vancomycin (Vancocin) capsule 125 mg Cannot be calculated vancomycin (Vancocin) pharmacy to dose - pharmacy monitoring Cannot be calculated four factor human prothrombin complex concentrate (Kcentra) 2,156 Units in sterile water 80 mL infusion Cannot be calculated potassium chloride 20 mEq in 100 mL IV premix 14.17 mL lactated Ringer's infusion 28.33 mL Anesthesia Record Intraprocedure I/O Totals Intake Transfuse RBC :1 Hour 350.00 mL lactated Ringer's infusion 1500.00 mL Total Intake 1850 mL Output Urine 420 mL Est. Blood Loss 40 mL Total Output 460 mL Net Net Volume 1390 mL Specimen: ID Type Source Tests Collected by Time A : Perineal Abcess Swab ABSCESS FUNGAL CULTURE/SMEAR, TISSUE/WOUND CULTURE/SMEAR Mel Guzman, DO 02/21/20242215 Staff: School Manager: Brandon Kennedy Person: Tiburcio Findings: Cavity continuous with fissure. Complications: None; patient tolerated the procedure well. Disposition: PACU - hemodynamically stable. Condition: stable Specimens Collected: ID Type Source Tests Collected by Time A : Perineal Abcess Swab ABSCESS FUNGAL CULTURE/SMEAR, TISSUE/WOUND CULTURE/SMEAR Mel Guzman, DO 02/21/20242215 Attending Attestation: I was present for the entire procedure. Mel Guzman [facility] Work Phone: [phone] History and physical note* Piper Mcintyre MD - 02/21/2024 5:50 PM EDT [facility] SURGERY - HISTORY AND PHYSICAL / CONSULT Patient Name: Sheri South Admit Date: [id number] : 1990 AGE: 33 y.o. GENDER: female TODAY'S ASSESSMENT AND PLAN OF CARE: This is a 33 y/o F with known hx of UC who presents as a transfer for evaluation for possible NSTI of perineum. Patient presented to OSH earlier today with perianal pain and was found to be C diff positive, with imaging concerning for a possibly necrotizing perianal abscess. On arrival to [facility], patient's vitals are notable for tachycardia to the 120's. She states that she has had moderate pain in her bottom for the last several days, accompanied with severe diarrhea,fever, chills, N/V, and loss of appetite. She was recently given a 10-day course of Keflex for LLE cellulitis, which has since resolved. Denies chest pain, SOB. States that her stools are typically bloody given underlying UC, which was dx in Sep 2023. She was previously on mesalamine but says that made her symptoms worse. Unaware of any personal or family hx of hematologic or bleeding disorders. On physical exam, there is clear induration of the L gluteal cleft but no obvious crepitus, drainage or skin changes. Imaging shows air tracking with possible fistulous tract to rectum (unclear). Plan: - Admit to ACS - NPO, mIVF - IV vancomycin, zosyn, clindamycin - 1u pRBC, Kcentra - PO pain medications - OR for emergent debridement Discussed with attending, Dr. Asencio. CHIEF COMPLAINT/REASON FOR CONSULT: C/f NSTI of perineum PAST MEDICAL HISTORY: PMH: UC PSH: FH: Diabetes in mother SOCIAL HISTORY: Smoking: Denies Alcohol: Denies Drug use: Denies MEDICATIONS: Not taking any currently ALLERGIES: No Known Allergies REVIEW OF SYSTEMS: All systems reviewed and otherwise negative. PHYSICAL EXAM: General: NAD, resting comfortably HEENT: NCAT Resp: nonlabored breathing on RA CV: RRR Abd: soft, NTND Anorectal: Induration and erythema over L gluteal cleft with no obvious skin changes, necrosis, crepitus, or drainage. No blood on SAMMY. MSK: moves all extremities Ext: resolved L calf cellulitis Psych: appropriate mood and behavior IMAGING SUMMARY: Imaging available in PACS, demonstrates infected, gas-filled fluid collection in Lgluteus with possible fistulous tract to rectum. LABS: Results from last 7 days Lab Units 02/21/24 1814 WBC AUTO x10*3/uL 22.2* HEMOGLOBIN g/dL 6.1* HEMATOCRIT % 20.4* PLATELETS AUTO x10*3/uL 386 NEUTROS PCT AUTO % 86.7 LYMPHS PCT AUTO % 8.7 MONOS PCT AUTO % 3.3 EOS PCT AUTO % 0.0 Results from last 7 days Lab Units 02/21/24 1814 APTT seconds 23* INR 2.2* No lab exists for component: LABALBU I have reviewed all laboratory and imaging results ordered/pertinent for this encounter. Associated attestation - Mel Guzman DO - 02/22/2024 4:56 AM EDT Pt seen and evaluated, chart reviewed. Agree in general with the note as documented by the resident. Concern for NSTI v. Abscess from anal fistula. Need for OR discussed including the procedure, risks, benefits, and alternatives. Informed consent obtained, to OR urgently. [facility] Work Phone: [phone]) [phone] History and physical note* Piper Mcintyre MD - 02/21/2024 5:50 PM EDT [facility] SURGERY - HISTORY AND PHYSICAL / CONSULT Patient Name: Sheri South Admit Date: 6031023 : 1990 AGE: 33 y.o. GENDER: female TODAY'S ASSESSMENT AND PLAN OF CARE: This is a 33 y/o F with known hx of UC who presents as a transfer for evaluation for possible NSTI of perineum. Patient presented to OSH earlier today with perianal pain and was found to be C diff positive, with imaging concerning for a possibly necrotizing perianal abscess. On arrival to [facility], patient's vitals are notable for tachycardia to the 120's. She states that she has had moderate pain in her bottom for the last several days, accompanied with severe diarrhea,fever, chills, N/V, and loss of appetite. She was recently given a 10-day course of Keflex for LLE cellulitis, which has since resolved. Denies chest pain, SOB. States that her stools are typically bloody given underlying UC, which was dx in Sep 2023. She was previously on mesalamine but says that made her symptoms worse. Unaware of any personal or family hx of hematologic or bleeding disorders. On physical exam, there is clear induration of the L gluteal cleft but no obvious crepitus, drainage or skin changes. Imaging shows air tracking with possible fistulous tract to rectum (unclear). Plan: - Admit to ACS - NPO, mIVF - IV vancomycin, zosyn, clindamycin - 1u pRBC, Kcentra - PO pain medications - OR for emergent debridement Discussed with attending, Dr. Asencio. CHIEF COMPLAINT/REASON FOR CONSULT: C/f NSTI of perineum PAST MEDICAL HISTORY: PMH: UC PSH: FH: Diabetes in mother SOCIAL HISTORY: Smoking: Denies Alcohol: Denies Drug use: Denies MEDICATIONS: Not taking any currently ALLERGIES: No Known Allergies REVIEW OF SYSTEMS: All systems reviewed and otherwise negative. PHYSICAL EXAM: General: NAD, resting comfortably HEENT: NCAT Resp: nonlabored breathing on RA CV: RRR Abd: soft, NTND Anorectal: Induration and erythema over L gluteal cleft with no obvious skin changes, necrosis, crepitus, or drainage. No blood on SAMMY. MSK: moves all extremities Ext: resolved L calf cellulitis Psych: appropriate mood and behavior IMAGING SUMMARY: Imaging available in PACS, demonstrates infected, gas-filled fluid collection in Lgluteus with possible fistulous tract to rectum. LABS: Results from last 7 days Lab Units 02/21/24 1814 WBC AUTO x10*3/uL 22.2* HEMOGLOBIN g/dL 6.1* HEMATOCRIT % 20.4* PLATELETS AUTO x10*3/uL 386 NEUTROS PCT AUTO % 86.7 LYMPHS PCT AUTO % 8.7 MONOS PCT AUTO % 3.3 EOS PCT AUTO % 0.0 Results from last 7 days Lab Units 02/21/24 1814 APTT seconds 23* INR 2.2* No lab exists for component: LABALBU I have reviewed all laboratory and imaging results ordered/pertinent for this encounter. Associated attestation - Mel Guzman DO - 02/22/2024 4:56 AM EDT Pt seen and evaluated, chart reviewed. Agree in general with the note as documented by the resident. Concern for NSTI v. Abscess from anal fistula. Need for OR discussed including the procedure, risks, benefits, and alternatives. Informed consent obtained, to OR urgently. [facility] Work Phone: [phone] 575-942406-04-2024 Emergency department Note* Lory Martinez DO - 02/21/2024 5:12 PM EDT Images from the original note were not included. HPI No chief complaint on file. HPI Patient is a 33-year-old female with past medical history of ulcerative colitis who presents emergency department today as a transfer from [facility] for concerns of necrotizing fasciitis. Patient states that she had been being treated for cellulitis since last Tuesday on her bilateral lower extremities, worse on the left, with Keflex. She states that that has mostly cleared up but that shestarted to notice some bumps on her left gluteal region yesterday. She states that it was worse today with some associated pain on the left medial gluteal. She states that she went to pulmonary in hospital where she was given antibiotics and a CT scan revealed necrotizing fasciitis. She states thatthey sent her to [facility] for continued care. Patient stated that she has had bloody bowel movements since July. She states that she was following with a doctor but they had a falling out she has not seen 1 for a few months. Patient denies shortness of breath, chest pain, abdominal pain, fevers. No data recorded Patient History No past medical history on file. No past surgical history on file. No family history on file. Social History Tobacco Use Smoking status: Not on file Smokeless tobacco: Not on file Substance Use Topics Alcohol use: Not on file Drug use: Not on file Physical Exam ED Triage Vitals Temp Pulse Resp BP -- -- -- -- SpO2 Temp src Heart Rate Source Patient Position -- -- -- -- BP Location FiO2 (%) -- -- Physical Exam Vitals and nursing note reviewed. Constitutional: General: She is not in acute distress. Appearance: She is well-developed. HENT: Head: Normocephalic and atraumatic. Eyes: Conjunctiva/sclera: Conjunctivae normal. Cardiovascular: Rate and Rhythm: Normal rate and regular rhythm. Heart sounds: No murmur heard. Pulmonary: Effort: Pulmonary effort is normal. No respiratory distress. Breath sounds: Normal breath sounds. Abdominal: Palpations: Abdomen is soft. Tenderness: There is no abdominal tenderness. Genitourinary: Comments: Medial aspect of left tibial region with several vesicles, erythema, hard, and tender to palpation Musculoskeletal: General: No swelling. Cervical back: Neck supple. Skin: General: Skin is warm and dry. Capillary Refill: Capillary refill takes less than 2 seconds. Neurological: Mental Status: She is alert. Psychiatric: Mood and Affect: Mood normal. ED Course & MDM Diagnoses as of 02/21/241912 Necrotizing fasciitis (Multi) Medical Decision Making Patient is a 33-year-old female with past medical history of ulcerative colitis who presents emergency department today as a transfer from [facility] for concerns of necrotizing fasciitis. Patient had been given vancomycin, Zosyn, and clindamycin at the outside hospital. Pharmacy was consulted and arranged for her medications to be continued. Acute care surgery was consulted and evaluated the patient. Preop labs were ordered and patient's CBC revealed an anemia with a a hemoglobin of 6.1. The patient was consented for blood transfusion and a blood transfusion was ordered. Patient also had a leukocytosis with a WBC of 22.2. Patient stated that her pain was well-controlled. Patient admitted to acute care surgery in stable condition for surgery in the morning. Patient understood and was agreeable with the plan. Procedure Procedures none Lory Martinez DO Resident 02/21/242118 Associated attestation - Glory Damon MD - 02/23/2024 5:32 PM EDT The patient was seen by the resident/fellow. I have personally performed a substantive portion of the encounter. I have seen and examined the patient; agree with the workup, evaluation, MDM, management and diagnosis. The care plan has been discussed with the resident; I have reviewed the resident snote and agree with the documented findings. * Yue Garland RN - 02/21/2024 5:12 PM EDT Patient with a known hx of Ulcerative Colitis comes in as a transfer here to see ACS; patient was recently diagnosed with cellulitis to BLE, was started on Keflex for this, which patient states has been improving with the abx; she then presented to OSH with rectal bumps and a mild pain to the touchin her rectum; She was C. Diff (+) and CT revealed concern for soft tissue necrotizing fasciitis aswell as perianal abscess; patient received IVF, abx and pain medication at OSH; She states she has no other PMHx besides the UC; she arrives in no acute signs of distress while onroom air and states her pain is tolerable at this time; A&Ox4 [facility] Work Phone: [phone]) 293-314006-04-2024 Emergency department Triage note* Yue Garland RN - 02/21/2024 5:12 PM EDT Patient with a known hx of Ulcerative Colitis comes in as a transfer here to see ACS; patient was recently diagnosed with cellulitis to [facility], was started on Keflex for this, which patient states has been improving with the abx; she then presented to OSH with rectal bumps and a mild pain to the touchin her rectum; She was C. Diff (+) and CT revealed concern for soft tissue necrotizing fasciitis aswell as perianal abscess; patient received IVF, abx and pain medication at OSH; She states she has no other PMHx besides the UC; she arrives in no acute signs of distress while onroom air and states her pain is tolerable at this time; A&Ox4 [facility] Work Phone: [phone] Physician Emergency department Note* Lory Martinez, - 02/21/2024 5:12 PM EDT Images from the original note were not included. HPI No chief complaint on file. HPI Patient is a 33-year-old female with past medical history of ulcerative colitis who presents emergency department today as a transfer from [facility] for concerns of necrotizing fasciitis. Patient states that she had been being treated for cellulitis since last Tuesday on her bilateral lower extremities, worse on the left, with Keflex. She states that that has mostly cleared up but that shestarted to notice some bumps on her left gluteal region yesterday. She states that it was worse today with some associated pain on the left medial gluteal. She states that she went to [facility] in hospital where she was given antibiotics and a CT scan revealed necrotizing fasciitis. She states thatthey sent her to [facility] for continued care. Patient stated that she has had bloody bowel movements since July. She states that she was following with a doctor but they had a falling out she has not seen 1 for a few months. Patient denies shortness of breath, chest pain, abdominal pain, fevers. No data recorded Patient History No past medical history on file. No past surgical history on file. No family history on file. Social History Tobacco Use Smoking status: Not on file Smokeless tobacco: Not on file Substance Use Topics Alcohol use: Not on file Drug use: Not on file Physical Exam ED Triage Vitals Temp Pulse Resp BP -- -- -- -- SpO2 Temp src Heart Rate Source Patient Position -- -- -- -- BP Location FiO2 (%) -- -- Physical Exam Vitals and nursing note reviewed. Constitutional: General: She is not in acute distress. Appearance: She is well-developed. HENT: Head: Normocephalic and atraumatic. Eyes: Conjunctiva/sclera: Conjunctivae normal. Cardiovascular: Rate and Rhythm: Normal rate and regular rhythm. Heart sounds: No murmur heard. Pulmonary: Effort: Pulmonary effort is normal. No respiratory distress. Breath sounds: Normal breath sounds. Abdominal: Palpations: Abdomen is soft. Tenderness: There is no abdominal tenderness. Genitourinary: Comments: Medial aspect of left tibial region with several vesicles, erythema, hard, and tender to palpation Musculoskeletal: General: No swelling. Cervical back: Neck supple. Skin: General: Skin is warm and dry. Capillary Refill: Capillary refill takes less than 2 seconds. Neurological: Mental Status: She is alert. Psychiatric: Mood and Affect: Mood normal. ED Course & MDM Diagnoses as of 02/21/241912 Necrotizing fasciitis (Multi) Medical Decision Making Patient is a 33-year-old female with past medical history of ulcerative colitis who presents emergency department today as a transfer from [facility] for concerns of necrotizing fasciitis. Patient had been given vancomycin, Zosyn, and clindamycin at the outside hospital. Pharmacy was consulted and arranged for her medications to be continued. Acute care surgery was consulted and evaluated the patient. Preop labs were ordered and patient's CBC revealed an anemia with a a hemoglobin of 6.1. The patient was consented for blood transfusion and a blood transfusion was ordered. Patient also had a leukocytosis with a WBC of 22.2. Patient stated that her pain was well-controlled. Patient admitted to acute care surgery in stable condition for surgery in the morning. Patient understood and was agreeable with the plan. Procedure Procedures none Lory Martinez DO Resident 02/21/242118 Associated attestation - Glory Damon MD - 02/23/2024 5:32 PM EDT The patient was seen by the resident/fellow. I have personally performed a substantive portion of the encounter. I have seen and examined the patient; agree with the workup, evaluation, MDM, management and diagnosis. The care plan has been discussed with the resident; I have reviewed the resident snote and agree with the documented findings. [facility] Work Phone: Discharge summary Author Yoanna Vasques [facility] Note Date/Time January 14, 2025 4:[address] [facility] Medical Records Department [address] [place] [address] Instructions for Home/Discharge Instructions 01/14/25 1644 MR#: [id number] Acct: [id number] Name: SHERI SOUTH Rep #:[id number] : 1990 34 From: Yoanna Salazar DO PCP: Dr. Lan Simmons MD Status:A DM IN Discharge Instructions Diet Discharge Diet: No restrictions DC O2, CPAP, BIPAP needs Home O2 Discharge instructions: No Dressing / Incision Discharge Activity: Return to Normal Activity May resume sexual activity in: No Restrictions Weight Bearing Status: Weight bearing as tolerated Dressing / Incision Call your doctor if you observe: Fever of 101 or Higher, Dizziness, Chest pain, Increased palpitations (irregular heartbeat), Calf discomfort and Uncontrolled pain Follow Up Care Please Follow Up With: Ruben Galdamez DO When: 2- 3 weeks Test Results: Test results from this visit will be discussed in further detail at your follow- up appointment, if applicable. Discharge Plan Admission Admit Date/Time: 01/14/25 08:03 Primary Reason for Your Visit: GI Bleed in Attending Provider: Yoanna Salazar Primary Care Provider: Lan Simmons Discharge Orders/Prescriptions Prescriptions: No Action Humira(CF) 40 mg/0.4 mL syringe kit 40 mg subcut Q2W [id number] 18 mg iron- 400 mcg-120 mcg tablet 1 tab PO DAILY Melani Herbal Iron 1 cap PO BID ascorbic acid (vitamin C) [Acerola C] 500 mg tablet,chewable 500 mg PO BID Referrals / Follow Up: Lan Simmons MD [Primary Care Provider] - Disposition Disposition (needs filled in before D/C Order can be placed): Home, Self Care 01/14/251644<Electronically signed by Yoanna Salazar DO>Yoanna Salazar DO CC: Dr. Lan Simmons MD ~ Signed [facility] Work Phone: Discharge summary Author Yoanna Vasques [facility] Note Date/Time January 14, 2025 4:[address] [facility] Medical Records Department [address] [place] [address] Discharge Summary 01/14/251644 MR#: [id number] Acct: [id number] Name: SHERI SOUTH Rep #:[id number] : 1990 34 From: Yoanna Salazar DO PCP: Dr. Lan Simmons MD Status:A DM IN Location: [place] [address] Providers Date of Admission: 01/14/25 Primary Care Physician: Dr. Lan Simmons MD Consultations 01/12/25 16:37 Consult: Gastroenterology Routine Consulting Provider: [facility] Reason for Consult: Crohn's, GI bleed EMERGENT Consult: No MD Notified: Yes Date Notified: 01/12/25 Time Notified: 10:00 Method of Notification: Verbal Reason For Visit: GI BLEED IN Diagnosis Discharge Diagnosis (1) Acute GI bleeding: Status: Acute Code(s): K92.2 - Gastrointestinal hemorrhage, unspecified Plan: waiting on rest of labs that Dr. Galdamez ordered continue solumedrol q 8 hrs (2) 29 weeks gestation of : Status: Acute Code(s): Z3A.29 - 29 weeks gestation of Plan: NSTs reactive. no decelerations noted. no contractions. will need a growth scan in 2 weeks with doppler likely to rule out anemia. (3) Anemia: Status: Acute Code(s): D64.9 - Anemia, unspecified Plan: iron studies are overall normal. This is due to acute blood loss anemia. She is status post 2 units of blood withminimal uprise in hg levels. Currently asymptomatic. (4) and not yet delivered: Status: Acute Code(s): Z34.90 - Encounter for supervision of normal , unspecified, unspecifiedtrimester (5) Crohn's disease: Status: Acute Code(s): K50.90 - Crohn's disease, unspecified, without complications (6) Vasculitis: Status: Acute Code(s): I77.6 - Arteritis, unspecified Medications at Discharge Home Medications adalimumab 40 mg/0.4 mL subcutaneous syringe kit (Humira(CF)) 40 mg subcut Q2W 01/11/25 ybqnduscpoud-noo-fagq 18 mg-folic 400 mcg-vit K1 120 mcg-herbal tablet 1 tab PO DAILY 01/11/25 [facility] Her[facility] Iron 1 cap PO BID 01/13/25 ascorbic acid (vitamin C) 500 mg chewable tablet (Acerola C) 500 mg PO BID 01/13/25 Hospital Course Operations None Procedures None Summary of Care Provided Minutes Spent on Discharge: 15 Hospital Course: The patient was admitted to L&D due to acute blood loss anemia due to IBD flair that caused a GI bleed. She is 29 weeks gestation. She was transfused 2 units ofPRBCs and her hg improved minimally but was found to be stable. Dr. Galdamez from ordered solumedrol 125 mg IV every 8 hours from 01/11/25 through 01/14/25. Inflammatory markers were followed by JESS. The baby was on continuous monitoring for the first 24 hrs without decelerations or contractions. There after she was on NST's q shift and they were noted to be normal. The decision was made by JESS to send her home on oral steroids on the evening of 01/14/25 and with close outpatient observation. The patient had a growth scan 2 weeks with MF at [place] and plans to return in 2 weeks and every 4 weeks for growth scans until delivery. Physical Exam HEENT normocephalic Resp normal respiratory effort and normal air movement GI soft to palpation, non-tender and non-distended no CVA tenderness Extremity normal to inspection General Extremity: edema bilateral (trace ) ABG / Lab / Microbiology Data 01/14/25 05:20 01/14/25 07:55 Laboratory: Laboratory Results - last 24 hr 01/12/25 10:15: Crossmatch See Detail 01/14/25 05:20: WBC 11.4 H, RBC 3.13 L, Hgb 8.9 L, Hct 28.6 L, MCV 91.4, MCH 28.4, MCHC 31.1 L, RDW Std Deviation 49.1 H, RDW Coeff of Shira 15.0 H, Plt Count 364, MPV 7.8, Immature Gran % (Auto) 1.600 H, Neut % (Auto) 74.3 H, Lymph % (Auto) 20.1, Sequoyah % (Auto) 3.7, Eos % (Auto) 0.0, Baso % (Auto) 0.3, Absolute Neuts (auto) 8.5 H, Absolute Lymphs (auto) 2.29, Nucleated RBC % 0 01/14/25 07:55: ESR 41 H, Sodium 135, Potassium 4.3, Chloride 103, Carbon Dioxide 20.4 L, Anion Gap 11, BUN 7, Creatinine 0.42 L, Est GFR (MDRD) Non-Af 132, BUN/Creatinine Ratio 16.2, Glucose 115 H, Calcium 8.7, Total Bilirubin 0.28, AST 35 H, ALT 23, Alkaline Phosphatase 169 H, C-React Prot Ext Range 14.70H, Total Protein 7.5, Albumin 2.6 L, Globulin 4.9 H, Albumin/Globulin Ratio 0.5 L Microbiology: Microbiology 01/12/25 21:25 Stool Stool Lactoferrin - Final 01/12/25 21:25 Stool Enteric Bacteriology - Final 01/12/25 21:25 Stool Clostridioides difficile (PCR) - Final D/C Instructions Discharge Diet: No restrictions May resume sexual activity in: No Restrictions Weight Bearing Status: Weight bearing as tolerated Call your doctor if you observe: Fever of 101 or Higher, Dizziness, Chest pain, Increased palpitations (irregular heartbeat), Calf discomfort and Uncontrolled pain DC O2, CPAP, BIPAP Needs Home O2 Discharge instructions: No Please Follow Up With: Ruben Galdamez, DO When: 2- 3 weeks Meaningful Use Info Meaningful Use Meaningful Use Diagnoses (Choose all that apply): None applicable Ischemic Stroke Statin Dosing Therapy Reference: STATIN DOSE THERAPY REFERENCE: * Patients > 75 years receive moderate or high dose statin therapy. * Patients 75 years or YOUNGER should receive HIGH intensity statin dose unless contraindicated. You will be required to document reason for non-treatment if statin daily dose does not meet guidelines. HIGH DOSE STATIN THERAPY DAILY Atorvastatin > than or = to 40 mg Rosuvastatin > than or = to 20 mg Amlodipine + Atorvastatin > than or = to 2.5/40 mg Ezetimibe + Simvastatin 10/80 mg Simvastatin 80mg Discharge Plan Admission Admit Date/Time: 01/14/25 08:03 Primary Reason for Your Visit: GI Bleed in Attending Provider: Yoanna Salazar Primary Care Provider: Lan Simmons Discharge Orders/Prescriptions Prescriptions: No Action Humira(CF) 40 mg/0.4 mL syringe kit 40 mg subcut Q2W ri-oc-qfoy-tbpyl-Y2-sacshr 354 18 mg iron- 400 mcg-120 mcg tablet 1 tab PO DAILY [facility] Herbal Iron 1 cap PO BID ascorbic acid (vitamin C) [Acerola C] 500 mg tablet,chewable 500 mg PO BID Referrals / Follow Up: Lan Simmons MD [Primary Care Provider] - Disposition Disposition (needs filled in before D/C Order can be placed): Home, Self Care 01/14/25 1650 <Electronically signed by Yoanna Salazar DO> Cosigner Signature (if applicable): CC: Dr. Yoanna Salazar DO; Dr. Lan Simmons MD~ Signed [facility] Work Phone: Evaluation + Plan note No data available for this section [facility] Evaluation note* Diagnosis Necrotizing fasciitis (Multi)- Primary Necrotizing fasciitis Necrotizing fasciitis (Multi) Necrotizing fasciitis Post-operative state Other postprocedural status documented in this encounter [facility] Work Phone: Evaluation note* Diagnosis Inflammatory bowel disease- Primary Other and unspecified noninfectious gastroenteritis and colitis documented in this encounter [facility] Work Phone: Evaluation note* Diagnosis Inflammatory bowel disease Other and unspecified noninfectious gastroenteritis and colitis documented in this encounter [facility] Work Phone: Evaluation note* Diagnosis Crohn's disease of both small and large intestine with fistula (Multi)- Primary documented in this encounter [facility] Work Phone: Evaluation note* Diagnosis Crohn disease of upper gastrointestinal tract- Primary Gastrointestinal Crohn's disease Exacerbation of Crohn's disease with complication (Multi) Crohn disease of upper gastrointestinal tract documented in this encounter [facility] Work Phone: Evaluation note* Diagnosis Screening, , for anatomic survey ([facility]) Encounter for anatomic survey Obesity affecting in second trimester ([facility]) FH: Crohn's disease Family history of other digestive disorders documented in this encounter [facility] Work Phone: Evaluation note* Diagnosis Crohn's disease of both small and large intestine with fistula (Multi)- Primary documented in this encounter [facility] Work Phone: Hospital Discharge instructions* Attachments The following attachments cannot be sent through Care Everywhere. * Managing acute pain at home (Russian) [facility] Reason for referral (narrative)* Consultation (Routine) - Authorized Specialty Diagnoses / Procedures Referred By Edvinac t Referred To Contact General Surgery Diagnoses Post-operative state Procedures Follow Up In General Surgery Ivelisse Weiner PA-C [address] [place] [address] Referral ID Status Reason Start Date Expiration Date V isits Requested Visits Authorized [id number] Authorized 02/24/2024 02/23/2025 1 1 [facility] Work Phone: Reason for referral (narrative)No reason for referral information [facility] Work Phone: Reason for visit Narrative* Auth/Cert (Routine) Specialty Diagnoses / Procedures Referred By Contac t Referred To Contact Diagnoses NO PRE-CERT REQUIRED FOR [facility] Procedures NO PRE-CERT REQUIRED FOR [facility] [place] [address] [address] [address] Phone: tel: fax: Referral ID Status Reason Start Date Expiration Date Visits Re quested Visits Authorized [id number] 1 1 [facility] Work Phone: Summary Purpose Family History Congestive Heart Failure Status:Active Comment s:Mother. passed at age 66 Diabetes Mellitus Type I Status:Active Heart Disease Status:Active Congestive Heart Failure Status:Active Comment s:Mother. passed at age 66 Diabetes Mellitus Type I Status:Active Heart Disease Status:Active Congestive Heart Failure Status:Active Comment s:Mother. passed at age 66 Diabetes Mellitus Type I Status:Active Heart Disease Status:Active Congestive Heart Failure Status:Active Comment s:Mother. passed at age 66 Diabetes Mellitus Type I Status:Active Heart Disease Status:Active Congestive Heart Failure Status:Active Comment s:Mother. passed at age 66 Diabetes Mellitus Type I Status:Active Heart Disease Status:Active Congestive Heart Failure Status:Active Comment s:Mother. passed at age 66 Diabetes Mellitus Type I Status:Active Heart Disease Status:Active Congestive Heart Failure Status:Active Comment s:Mother. passed at age 66 Diabetes Mellitus Type I Status:Active Heart Disease Status:Active Congestive Heart Failure Status:Active Comment s:Mother. passed at age 66 Diabetes Mellitus Type I Status:Active Heart Disease Status:Active Congestive Heart Failure Status:Active Comment s:Mother. passed at age 66 Diabetes Mellitus Type I Status:Active Heart Disease Status:Active Congestive Heart Failure Status:Active Comment s:Mother. passed at age 66 Diabetes Mellitus Type I Status:Active Heart Disease Status:Active Congestive Heart Failure Status:Active Comment s:Mother. passed at age 66 Diabetes Mellitus Type I Status:Active Heart Disease Status:Active Congestive Heart Failure Status:Active Comment s:Mother. passed at age 66 Diabetes Mellitus Type I Status:Active Heart Disease Status:Active Congestive Heart Failure Status:Active Comment s:Mother. passed at age 66 Diabetes Mellitus Type I Status:Active Heart Disease Status:Active Congestive Heart Failure Status:Active Comment s:Mother. passed at age 66 Diabetes Mellitus Type I Status:Active Heart Disease Status:Active Congestive Heart Failure Status:Active Comment s:Mother. passed at age 66 Diabetes Mellitus Type I Status:Active Heart Disease Status:Active Congestive Heart Failure Status:Active Comment s:Mother. passed at age 66 Diabetes Mellitus Type I Status:Active Heart Disease Status:Active Congestive Heart Failure Status:Active Comment s:Mother. passed at age 66 Diabetes Mellitus Type I Status:Active Heart Disease Status:Active Congestive Heart Failure Status:Active Comment s:Mother. passed at age 66 Diabetes Mellitus Type I Status:Active Heart Disease Status:Active Congestive Heart Failure Status:Active Comment s:Mother. passed at age 66 Diabetes Mellitus Type I Status:Active Heart Disease Status:Active Congestive Heart Failure Status:Active Comment s:Mother. passed at age 66 Diabetes Mellitus Type I Status:Active Heart Disease Status:Active Congestive Heart Failure Status:Active Comment s:Mother. passed at age 66 Diabetes Mellitus Type I Status:Active Heart Disease Status:Active Congestive Heart Failure Status:Active Comment s:Mother. passed at age 66 Diabetes Mellitus Type I Status:Active Heart Disease Status:Active Congestive Heart Failure Status:Active Comment s:Mother. passed at age 66 Diabetes Mellitus Type I Status:Active Heart Disease Status:Active Congestive Heart Failure Status:Active Comment s:Mother. passed at age 66 Diabetes Mellitus Type I Status:Active Heart Disease Status:Active Congestive Heart Failure Status:Active Comment s:Mother. passed at age 66 Diabetes Mellitus Type I Status:Active Heart Disease Status:Active Congestive Heart Failure Status:Active Comment s:Mother. passed at age 66 Diabetes Mellitus Type I Status:Active Heart Disease Status:Active Congestive Heart Failure Status:Active Comment s:Mother. passed at age 66 Diabetes Mellitus Type I Status:Active Heart Disease Status:Active Congestive Heart Failure Status:Active Comment s:Mother. passed at age 66 Diabetes Mellitus Type I Status:Active Heart Disease Status:Active Congestive Heart Failure Status:Active Comment s:Mother. passed at age 66 Diabetes Mellitus Type I Status:Active Heart Disease Status:Active Congestive Heart Failure Status:Active Comment s:Mother. passed at age 66 Diabetes Mellitus Type I Status:Active Heart Disease Status:Active Congestive Heart Failure Status:Active Comment s:Mother. passed at age 66 Diabetes Mellitus Type I Status:Active Heart Disease Status:Active Congestive Heart Failure Status:Active Comment s:Mother. passed at age 66 Diabetes Mellitus Type I Status:Active Heart Disease Status:Active Advance Directives Date Activated Date Inactivated Comments 02/21/2024 7:26 PM Question Answer Comments Plan of Care: Code Status Discussion Completed Decision Maker: Patient Date Activated Date Inactivated Comments 02/21/2024 7:26 PM Question Answer Comments Plan of Care: Code Status Discussion Completed Decision Maker: Patient Advance Directive Response Recorded Date/ Time Do you have a Healthcare Power of Receiving Dock Checker? No January 11, 2025 8:16pm Reason for Referral Specialty Diagnoses / Procedures Referred By Contac t Referred To Contact Radiology Diagnoses Inflammatory bowel disease Procedures CT enterography w Edy Resendiz, [employer]ANT-REGULATORY AFFAIRS STRATEGY SPECIALIST [id number] [place] [id number] Referral ID Status Reason Start Date Expiration Date Visits Requested Visits Authorized [id number] Authorized Perform Procedure 05/24/2024 05/24/2025 1 1 Chief Complaint and Reason for Visit Chief Complaint Admit Date CROHNS January 11, 2025 1:5 5pm INT LAB ORDERS January 11, 2025 3:3 5pm ABN LABS January 11, 2025 7:3 1pm Reason for Visit Admit Date Anemia January 11, 2025 1:5 5pm Crohn's disease January 11, 2025 1:5 5pm and not yet delivered December 1:55pm Vasculitis January 11, 2025 1:5 5pm Chief Complaint Admit Date CROHNS January 11, 2025 1:5 5pm INT LAB ORDERS January 11, 2025 3:3 5pm OVERNIGHT OBS January 12, 2025 9:3 7am OVERNIGHT OBS January 12, 2025 6:5 7pm OVERNIGHT OBS January 13, 2025 10: 51am GI BLEED IN January 14, 2025 8 :03am OVERNIGHT OBS January 14, 2025 8:0 4am Reason for Visit Admit Date Anemia January 11, 2025 1:5 5pm Crohn's disease January 11, 2025 1:5 5pm and not yet delivered December 1:55pm Vasculitis January 11, 2025 1:5 5pm 29 weeks gestation of January 142024 8:03am Acute GI bleeding January 14, 2025 8:0 3am Anemia January 14, 2025 8:0 3am Crohn's disease January 14, 2025 8:0 3am and not yet delivered December 8:03am Vasculitis January 14, 2025 8:0 3am Chief Complaint Admit Date CROHNS January 11, 2025 1:5 5pm INT LAB ORDERS January 11, 2025 3:3 5pm OVERNIGHT OBS January 12, 2025 9:3 7am OVERNIGHT OBS January 12, 2025 6:5 7pm OVERNIGHT OBS January 13, 2025 10: 51am GI BLEED IN January 14, 2025 8 :03am OVERNIGHT OBS January 14, 2025 8:0 4am HOSP FU January 31, 2025 11:00 am Chief Complaint Admit Date CROHNS January 11, 2025 1:5 5pm INT LAB ORDERS January 11, 2025 3:3 5pm OVERNIGHT OBS January 12, 2025 9:3 7am OVERNIGHT OBS January 12, 2025 6:5 7pm OVERNIGHT OBS January 13, 2025 10: 51am GI BLEED IN January 14, 2025 8 :03am OVERNIGHT OBS January 14, 2025 8:0 4am HOSP FU January 31, 2025 11:00 am E-ORDER February 04, 2025 2:16p m Reason for Visit Admit Date Anemia January 11, 2025 1:5 5pm Crohn's disease January 11, 2025 1:5 5pm and not yet delivered December 1:55pm Vasculitis January 11, 2025 1:5 5pm Acute GI bleeding January 14, 2025 8:0 3am Anemia January 14, 2025 8:0 3am Crohn's disease January 14, 2025 8:0 3am and not yet delivered December 8:03am Vasculitis January 14, 2025 8:0 3am 29 weeks gestation of January 142024 8:03am Anemia January 31, 2025 11:00 am Crohn's disease January 31, 2025 11:00 am Immunocompromised January 31, 2025 11:00 am and not yet delivered January 31, 2025 11:00am Chief Complaint Admit Date CROHNS January 11, 2025 1:5 5pm INT LAB ORDERS January 11, 2025 3:3 5pm OVERNIGHT OBS January 12, 2025 9:3 7am OVERNIGHT OBS January 12, 2025 6:5 7pm OVERNIGHT OBS January 13, 2025 10: 51am GI BLEED IN January 14, 2025 8 :03am OVERNIGHT OBS January 14, 2025 8:0 4am HOSP FU January 31, 2025 11:00 am E-ORDER February 04, 2025 2:16p m 3 WK FU February 18, 2025 10:46 am Reason for Visit Admit Date Anemia January 11, 2025 1:5 5pm Crohn's disease January 11, 2025 1:5 5pm and not yet delivered December 1:55pm Vasculitis January 11, 2025 1:5 5pm Acute GI bleeding January 14, 2025 8:0 3am Anemia January 14, 2025 8:0 3am Crohn's disease January 14, 2025 8:0 3am and not yet delivered December 8:03am Vasculitis January 14, 2025 8:0 3am 29 weeks gestation of January 142024 8:03am Anemia January 31, 2025 11:00 am Crohn's disease January 31, 2025 11:00 am Immunocompromised January 31, 2025 11:00 am and not yet delivered January 31, 2025 11:00am Anemia February 18, 2025 10:46 am Crohn's disease February 18, 2025 10:46 am Immunocompromised February 18, 2025 10:46 am and not yet delivered February 18, 2025 10:46am Chief Complaint Admit Date CROHNS January 11, 2025 1:5 5pm INT LAB ORDERS January 11, 2025 3:3 5pm OVERNIGHT OBS January 12, 2025 9:3 7am OVERNIGHT OBS January 12, 2025 6:5 7pm OVERNIGHT OBS January 13, 2025 10: 51am GI BLEED IN January 14, 2025 8 :03am OVERNIGHT OBS January 14, 2025 8:0 4am HOSP FU January 31, 2025 11:00 am E-ORDER February 04, 2025 2:16p m 3 WK FU February 18, 2025 10:46 am 3 wk FU March 04, 2025 2:02 pm Reason for Visit Admit Date Anemia January 11, 2025 1:5 5pm Crohn's disease January 11, 2025 1:5 5pm and not yet delivered December 1:55pm Vasculitis January 11, 2025 1:5 5pm Acute GI bleeding January 14, 2025 8:0 3am Anemia January 14, 2025 8:0 3am Crohn's disease January 14, 2025 8:0 3am and not yet delivered December 8:03am Vasculitis January 14, 2025 8:0 3am 29 weeks gestation of January 142024 8:03am Anemia January 31, 2025 11:00 am Crohn's disease January 31, 2025 11:00 am Immunocompromised January 31, 2025 11:00 am and not yet delivered January 31, 2025 11:00am Anemia February 18, 2025 10:46 am Crohn's disease February 18, 2025 10:46 am Immunocompromised February 18, 2025 10:46 am and not yet delivered February 18, 2025 10:46am Crohn's disease March 04, 2025 2:02 pm Additional Source Comments INFORMATION SOURCE (unrecogn ized section and content) DATE CREATED AUTHOR 11/09/2018 [facility] DATE CREATED AUTHOR AUTHOR'S ORGANIZ ATION 04/06/2019 [facility] DATE CREATED AUTHOR AUTHOR'S ORGANIZ ATION 06/11/2019 [facility] DATE CREATED AUTHOR AUTHOR'S ORGANIZ ATION 02/26/2024 [facility] DATE CREATED AUTHOR AUTHOR'S ORGANIZ ATION 03/09/2024 [facility] DATE CREATED AUTHOR AUTHOR'S ORGANIZ ATION 03/21/2024 [facility] DATE CREATED AUTHOR AUTHOR'S ORGANIZ ATION 10/12/2024 [facility] DATE CREATED AUTHOR AUTHOR'S ORGANIZ ATION 12/12/2024 [facility] DATE CREATED AUTHOR AUTHOR'S ORGANIZ ATION 12/22/2024 [facility] DATE CREATED AUTHOR AUTHOR'S ORGANIZ ATION 01/02/2025 [facility] DATE CREATED AUTHOR AUTHOR'S ORGANIZ ATION 02/23/2025 [facility] DATE CREATED AUTHOR AUTHOR'S ORGANIZ ATION 02/27/2025 [facility] DATE CREATED AUTHOR AUTHOR'S ORGANIZ ATION 03/02/2025 [facility] Reason for Visit (unrecogniz ed section and content) Reason Comments Crohn's Disease Specialty Diagnoses / Procedures Referred By Pasquale jasso Referred To Contact Diagnoses NO PRE-CERT REQUIRED FOR [facility] Procedures NO PRE-CERT REQUIRED FOR [facility] [address] [place] [address] Phone: tel: fax: Referral ID Status Reason Start Date Expiration Date Visits Re quested Visits Authorized [id number] 1 1 Reason Comments Rectal Pain Diarrhea Specialty Diagnoses / Procedures Referred By Contac t Referred To Contact Diagnoses Necrotizing fasciitis (Multi) Necrotizing Fascitis Procedures [place] [address] [place] [address] [facility] [address] [address] [place] [address] Referral ID Status Reason Start Date Expiration Date Visits Re quested Visits Authorized [id number] 1 1 Reason Comments Follow-up Specialty Diagnoses / Procedures Referred By Contac t Referred To Contact Diagnoses NO PRECERT REQUIRED FOR [facility] Procedures NO PRECERT REQUIRED FOR [facility] [address] [facility] [address] [place] [address] Referral ID Status Reason Start Date Expiration Date Visits Re quested Visits Authorized [id number] 1 1 Specialty Diagnoses / Procedures Referred By Contac t Referred To Contact Diagnoses Noninfective gastroenteritis and colitis, unspecified Procedures NO PRE-CERT REQUIRED FOR [facility] [address] [address] [place] [address] Referral ID Status Reason Start Date Expiration Date Visits Re quested Visits Authorized [id number] 1 1 Reason Comments fuv Referral ID Status Reason Start Date Expiration Date Visits Re quested Visits Authorized [id number] 1 1 Reason Comments Nausea Specialty Diagnoses / Procedures Referred By Contac t Referred To Contact Diagnoses Crohn disease of upper gastrointestinal tract Procedures NO PRE-CERT REQUIRED FOR [facility] [place] [address] [facility] Department [place] [address] Phone: tel: fax: [facility] Emergency Medicine [address] [place] [address] Phone: tel: fax: Referral ID Status Reason Start Date Expiration Date Visits Re quested Visits Authorized [id number] 1 1 Scheduled Active and Recently Administ ered Medications (unrecognized section and content) Medication Order 02/22/2024 02/23/2024 02/24/2024 acetaminophen (Tylenol) tablet 650 mg 650 mg, oral, Every 6 hours, First dose on Tue02/21/24 at 1930, If ordered PRN for pain, nurse is permitted to administer this medication for higher pain scores based on patient preference? Yes 0045 (MAR Unhold - Provider: Anali Greer RN)0208 (Given - Provider: Anali Greer RN)0838 (Given - Provider: Arleen Ambrose LPN)1439 (Given - Provider: Arleen Ambrose LPN)203 (Given - Provider: Marcellus Castillo RN - Comment: rn work flow) 0150 (Given - Provider: Marcellus Castillo RN)0820 (Given - Provider: Elsa Kingsley RN)1349 (Given - Provider: Elsa Kingsley RN)1957 (Given - Provider: Marcellus Castillo RN) 0057 (Given - Provider: Marcellus Castillo RN)0644 (Given - Provider: Marcellus Castillo RN)1251 (Given - Provider: Erika Martinez RN)1930 (Due) clindamycin in D5W (Cleocin) IVPB 900 mg (CANCELED) 900 mg, intravenous, at 50 mL/hr, Administer over 60 Minutes, Every 8 hours, First dose on Tue02/21/24 at 2000, premix bag, Dosing of this medication varies based on severity of illness. Does this patient have sepsis or concern for sepsis (probable or documented infection plus systemic manifestations of infection)? No, Suspected Indication (Select all that apply): Cellulitis, Skin and Soft Tissue, Type of Therapy: Empiric 0045 (MAR Unhold - Provider: Anali Greer RN)0328 (New Bag - Provider: Anali Greer RN)0428 (Stopped - Provider: Anali Greer RN)1438 (New Bag - Provider: Arleen Ambrose LPN)1538 (Stopped - Provider: Arleen Ambrose LPN) enoxaparin (Lovenox) syringe 40 mg 40 mg, subcutaneous, Every 24 hours, First dose on Tue02/21/24 at 1930, Indications: deep vein thrombosis prevention 0045 (MAR Unhold - Provider: Anali Greer RN)183 (Given - Provider: Arleen Ambrose LPN) 1957 (Given - Provider: Marcellus Castillo RN) 1929 (Due) iron sucrose (Venofer) 300 mg in sodium chloride 0.9% 250 mL IV 300 mg, intravenous, at 176.7 mL/hr, Administer over 90 Minutes, Daily, First dose on Tue02/22/24 at 1645, For 3 days 2046 (New Bag - Provider: Marcellus Castillo RN - Comment: rn work flow)2216 (Stopped - Provider: Marcellus Castillo RN) 2136 (New Bag - Provider: Marcellus Castillo RN)230 (Stopped - Provider: Marcellus Castillo RN) 2100 (Due - Provider: Carline Alanis, PharmD) phytonadione (Vitamin K) tablet 10 mg (COMPLETED) 10 mg, oral, Once, On Tue02/22/24 at 1645, For 1 dose 1832 (Given - Provider: Arleen Ambrose LPN) gbnvszgspyui-pgwlfmymnx-j extrose (Zosyn) IV 3.375 g (CANCELED) 3.375 g, intravenous, at 100 mL/hr, Administer over 0.5 Hours, Every 6 hours, First dose on Tue02/21/24 at 1830, premix bag, Dosing of this medication varies based on severity of illness. Does this patient have sepsis or concern for sepsis (probable or documented infection plus systemic manifestations of infection)? No, Suspected Indication (Select all that apply): Cellulitis, Skin and Soft Tissue, Type of Therapy: Empiric 0030 (Dose Auto Held - Provider: Automatic Transfer Provider)0045 (MAR Unhold - Provider: Anali Greer RN)0248 (New Bag - Provider: Anali Greer RN)0318 (Stopped - Provider: Anali Greer RN)0838 (New Bag - Provider: Arleen Ambrose LPN)0908 (Stopped - Provider: Arleen Ambrose LPN)1341 (New Bag - Provider: Arleen Ambrose LPN)1411 (Stopped - Provider: Arleen Ambrose LPN)2000 (Not Given - Provider: Marcellus Castillo RN - Reason: Order parameters not met - Comment: order discontinued) bdprzcjaiswx-dhndcsrdye-m extrose (Zosyn) IV 4.5 g 4.5 g, intravenous, at 200 mL/hr, Administer over 0.5 Hours, Every 6 hours, First dose (after last modification) on Tue02/23/24 at 0030, premix bag, Dosing of this medication varies based on severity of illness. Does this patient have sepsis or concern for sepsis (probable or documented infection plus systemic manifestations of infection)? No, Suspected Indication (Select all that apply): Cellulitis, Skin and Soft Tissue, Type of Therapy: Empiric, Indications: Cellulitis, Skin and Soft Tissue 0011 (New Bag - Provider: Marcellus Castillo RN)0041 (Stopped - Provider: Marcellus Castillo RN)0613 (New Bag - Provider: Marcellus Castillo RN)0643 (Stopped - Provider: Marcellus Castillo RN)1242 (New Bag - Provider: Elsa Kingsley RN)1312 (Stopped - Provider: Elsa Kingsley RN)1824 (New Bag - Provider: Elsa Kingsley RN)1854 (Stopped - Provider: Elsa Kingsley RN) 0057 (New Bag - Provider: Marcellus Castillo RN)0127 (Stopped - Provider: Marcellus Castillo RN)0642 (New Bag - Provider: Marcellus Castillo RN)0712 (Stopped - Provider: Erika Martinez RN)1251 (New Bag - Provider: Erika Martinez, RN)1321 (Stopped - Provider: Erika Martinez RN)1830 (Due) potassium chloride CR (Klor-Con M20) ER tablet 20 mEq (COMPLETED) 20 mEq, oral, Once, On Tue02/22/24 at 1345, For 1 dose, Best given with food and plenty of water to minimize gastric irritation. Do not crush or chew. 1439 (Given - Provider: Arleen Ambrose LPN) potassium chloride CR (Klor-Con M20) ER tablet 40 mEq (COMPLETED) 40 mEq, oral, Once, On Tue02/22/24 at 1345, For 1 dose, Best given with food and plenty of water to minimize gastric irritation. Do not crush or chew. 1438 (Given - Provider: Arleen Ambrose LPN) vancomycin (Vancocin) capsule 125 mg (CANCELED) 125 mg, oral, 4 times daily, First dose on Tue02/21/24 at 2100, Suspected Indication (Select all that apply): Abdominal Infection, Type of Therapy: Definitive, Based on Culture, Type of infection: [facility] 0045 (MAR Unhold - Provider: Anali Greer RN)0650 (Given - Provider: Anali Greer RN)1439 (Given - Provider: Arleen Ambrose LPN)1832 (Given - Provider: Arleen Ambrose LPN) vancomycin (Vancocin) capsule 500 mg 500 mg, oral, Every 6 hours, First dose (after last modification) on Tue02/22/24 at 2300, Suspected Indication (Select all that apply): Abdominal Infection, Type of Therapy: Definitive, Based on Culture, Type of infection: [facility], Indications: Abdominal Infection 2316 (Given - Provider: Marcellus Castillo RN) 0613 (Given - Provider: Marcellus Castillo RN - Comment: work flow)1004 (Given - Provider: Elsa Kingsley RN)1721 (Given - Provider: Elsa Kingsley RN)2314 (Given - Provider: Marcellus Castillo RN) 0642 (Given - Provider: Marcellus Castillo RN - Comment: work flow)1251 (Given - Provider: Erika Martinez RN - Comment: workflow)1700 (Due)2300 (Due) vancomycin (Vancocin) in dextrose 5 % water (D5W) 500 mL IV 1,500 mg (CANCELED) 1,500 mg (rounded from 1,347 mg = 15 mg/kg 89.8 kg), intravenous, at 333.3 mL/hr, Administer over 90 Minutes, Every 12 hours, First dose on Tue02/22/24 at 0015, Dosing of this medication varies based on severity of illness. Does this patient have sepsis or concern for sepsis (probable or documented infection plus systemic manifestations of infection)? Yes, Suspected Indication (Select all that apply): Cellulitis, Skin and Soft Tissue, Type of Therapy: Empiric 0015 (Dose Auto Held - Provider: Lory Martinez DO)0815 (Unheld by provider - Provider: Edy Pelayo APRN-REGULATORY AFFAIRS STRATEGY SPECIALIST)1030 (New Bag - Provider: Arleen Ambrose LPN)1200 (Stopped - Provider: Arleen Ambrose LPN) vancomycin (Vancocin) in dextrose 5 % water (D5W) 500 mL IV 1,500 mg 1,500 mg (rounded from 1,347 mg = 15 mg/kg 89.8 kg), intravenous, at 333.3 mL/hr, Administer over 90 Minutes, Every 12 hours, First dose (after last modification) on Tue02/22/24 at 2230, Dosing of this medication varies based on severity of illness. Does this patient have sepsis or concern for sepsis (probable or documented infection plus systemic manifestations of infection)? Yes, Suspected Indication (Select all that apply): Cellulitis, Skin and Soft Tissue, Type of Therapy: Empiric, Indications: Cellulitis, Skin and Soft Tissue 2230 (New Bag - Provider: Marcellus Castillo RN) 0000 (Stopped - Provider: Marcellus Castillo RN)1004 (New Bag - Provider: Elsa Kingsley RN)1134 (Stopped - Provider: Elsa Kingsley RN)2230 (New Bag - Provider: Marcellus Castillo RN) 0000 (Stopped - Provider: Marcellus Castillo RN)1108 (New Bag - Provider: Erika Martinez RN - Comment: okay to administer at this time per pharmacy)1238 (Stopped - Provider: Erika Martinez RN)2230 (Due) PRN Medication Order 02/22/2024 02/23/2024 02/24/2024 naloxone (Narcan) injection 0.2 mg 0.2 mg, intravenous, Every 5 min PRN, respiratory depression, Starting on Tue02/21/24 at 1923, If respiratory rate is less than 8 breaths/minute or patient is difficult to arouse stop any narcotics and contact physician. Administer slow IV push. Repeat as ordered until patient's respiratory rate is greater than 12 breaths/minute. 0045 ([facility] Unhold - Provider: Anali Greer RN) ondansetron (Zofran) injection 4 mg 4 mg, intravenous, Every 8 hours PRN, nausea/vomiting, first line, Starting on Tue02/21/24 at 1925, 1st Line. Give IV if patient is unable to take orally. If inadequate response within 60 minutes, proceed to next-line agent for same PRN reason or contact provider if no further options ordered. When administering via IV Push, administer over 3-5 minutes. 0045 ([facility] Unhold - Provider: Anali Greer RN) oxyCODONE (Roxicodone) immediate release tablet 10 mg 10 mg, oral, Every 4 hours PRN, pain severe (7-10), first line, Starting on Tue02/21/24 at 1925 0045 ([facility] Unhold - Provider: Anali Greer RN)0553 (Given - Provider: Anali Greer RN) oxyCODONE (Roxicodone) immediate release tablet 5 mg 5 mg, oral, Every 6 hours PRN, pain moderate (4-6), first line, Starting on Tue02/21/24 at 1923, If ordered PRN for pain, nurse is permitted to administer this medication for higher pain scores based on patient preference? Yes 0045 ([facility] Unhold - Provider: Anali Greer RN) 1003 (Given - Provider: Elsa Kingsley RN)1957 (Given - Provider: Marcellus Castillo, LUIS FERNANDO) 0642 (Given - Provider: Marcellus Castillo, RN)1552 (Given - Provider: Erika Martinez RN) vancomycin (Vancocin) pharmacy to dose - pharmacy monitoring miscellaneous, Daily PRN, other, Vancomycin Placeholder, Starting on Tue02/21/24 at 1805, This is a placeholder. Pharmacy will enter orders when vancomycin needs to be administered. 0045 ([facility] Unhold - Provider: Anali Greer RN) Scheduled Medication Order 09/30/2024 10/01/2024 10/02/2024 iron sucrose (Venofer) injection 200 mg (COMPLETED) 200 mg, intravenous, Administer over 5 Minutes, Once, On Tue10/01/24 at 1800, For 1 dose 2023 (Given - Provider: Marleen Vicente RN) magnesium oxide (Mag-Ox) tablet 400 mg 400 mg, oral, Daily, First dose on Tue10/01/24 at 1115 1133 (Given - Provider: Gi Whitney RN) 0820 (Given - Provider: Gi Whitney RN) methylPREDNISolone sod succinate (SOLU-Medrol) injection 20 mg (COMPLETED) 20 mg, intravenous, Every 8 hours, First dose on Tue09/27/24 at 1700, For 72 hours 0111 (Given - Provider: Marleen Vicente RN)0842 (Given - Provider: Areli Barajas RN) methylPREDNISolone sod succinate (SOLU-Medrol) injection 20 mg (COMPLETED) 20 mg, intravenous, Once, On Tue09/30/24 at 2230, For 1 dose 2318 (Given - Provider: Tiffanie Sprague RN) predniSONE (Deltasone) tablet 40 mg 40 mg, oral, Daily, First dose on Tue10/01/24 at 0700, For 7 days 0651 (Given - Provider: Tiffanie Sprague RN) 0820 (Given - Provider: Gi Whitney, LUIS FERNANDO) vitamin (iron-folic) tablet 1 tablet 1 tablet, oral, Daily, First dose on Tue09/27/24 at 1300, provides 0.8 mg folic acid 0842 (Given - Provider: Areli Barajas RN) 0840 (Given - Provider: Gi Whitney, LUIS FERNANDO) 0820 (Given - Provider: Gi Whitney, RN) PRN Medication Order 09/30/2024 10/01/2024 10/02/2024 acetaminophen (Tylenol) tablet 975 mg 975 mg, oral, Every 6 hours PRN, pain mild (1-3), first line, Starting on Tue09/27/24 at 1240, If ordered PRN for pain, nurse is permitted to administer this medication for higher pain scores based on patient preference? Yes bisacodyl (Dulcolax) suppository 10 mg 10 mg, rectal, Daily PRN, constipation, first line, Severe, Starting on Nandini 09/27/24 at 1240 cyclobenzaprine (Flexeril) tablet 10 mg 10 mg, oral, 3 times daily PRN, muscle spasms, Starting on Nandini 09/27/24 at 1241 hydrALAZINE (Apresoline) injection 5 mg 5 mg, intravenous, Administer over 2 Minutes, Once as needed, Systolic greater than or equal to 160 OR Diastolic greater than or equal to 110, Starting on Nandini 09/27/24 at 1240, For 1 dose, Consult provider prior to administration. Push over more than 2 minutes. Systolic greater than or equal to 160 OR Diastolic greater than or equal to 110. Repeat blood pressure in 20 minutes. Contraindication: coronary artery disease (CAD); Caution in suspected CAD labetaloL (Normodyne,Trandate) injection 20 mg 20 mg, intravenous, Administer over 2 Minutes, Once as needed, Systolic greater than or equal to 160 OR Diastolic greater than or equal to 110, Starting on Nandini 09/27/24 at 1239, For 1 dose, Consult provider prior to administration. Push over more than 2 minutes. Systolic greater than or equal to 160 OR Diastolic greater than or equal to 110. Repeat blood pressure in 10 minutes. Contraindications: active asthma, heart disease, heart failure, maternal bradycardia < 60. lidocaine (Xylocaine) 10 mg/mL (1 %) injection 0.5 mL 0.5 mL, subcutaneous, Once as needed, Prior to IV insertion, Starting on Nandini 09/27/24 at 1240, For 1 dose loperamide (Imodium) capsule 4 mg 4 mg, oral, 3 times daily PRN, diarrhea, Starting on Nandini 09/27/24 at 1241 magnesium hydroxide (Milk of Magnesia) 400 mg/5 mL suspension 10 mL 10 mL, oral, Every 24 hours PRN, constipation, second line, Starting on Nandini 09/27/24 at 1240, Follow administration with 8 ounces of water. metoclopramide (Reglan) tablet 10 mg(Linked Group 1) 10 mg, oral, Every 6 hours PRN, nausea/vomiting, second line, Starting on Nandini 09/27/24 at 1240, Use oral route first, if possible. NIFEdipine (Procardia) capsule 10 mg 10 mg, oral, Once as needed, Systolic greater than or equal to 160 OR Diastolic greater than or equal to 110, Starting on Nandini 09/27/24 at 1240, For 1 dose, Consult provider prior to administration. ondansetron (Zofran) tablet 4 mg(Linked Group 2) 4 mg, oral, Every 6 hours PRN, nausea/vomiting, first line, Starting on Nandini 09/27/24 at 1240, Use oral route first, if possible. polyethylene glycol (Glycolax, Miralax) packet 17 g 17 g, oral, Daily PRN, constipation, Starting on Nandini 09/27/24 at 0716, Bowel Regimen - for prevention of constipation. polyethylene glycol (Glycolax, Miralax) packet 17 g 17 g, oral, 2 times daily PRN, constipation, first line, Starting on Nandini 09/27/24 at 1240 psyllium (Metamucil) 3.4 gram packet 1 packet 1 packet, oral, Daily PRN, any constipation, Starting on Nandini 09/27/24 at 1240, Give with at least 8 ounces of water or juice simethicone (Mylicon) chewable tablet 80 mg 80 mg, oral, 4 times daily PRN, flatulence, Starting on Nandini 09/27/24 at 1240 Linked Groups Order Group 1: metoclopramide (Reglan) tablet 10 mgJump to med 10 mg, oral, Every 6 hours PRN, nausea/vomiting, second line, Starting on Nandini 09/27/24 at 1240, Use oral route first, if possible. Or metoclopramide (Reglan) injection 10 mg (CANCELED) 10 mg, intravenous, Every 6 hours PRN, nausea/vomiting, second line, Starting on Nandini 09/27/24 at 1240, Give IV if patient is unable to take orally. Group 2: ondansetron (Zofran) tablet 4 mgJump to med 4 mg, oral, Every 6 hours PRN, nausea/vomiting, first line, Starting on Nandini 09/27/24 at 1240, Use oral route first, if possible. Or ondansetron (Zofran) injection 4 mg (CANCELED) 4 mg, intravenous, Every 6 hours PRN, nausea/vomiting, first line, Starting on Nandini 09/27/24 at 1240, Give IV if patient is unable to take orally. When administering via IV Push, administer over 3-5 minutes. Care Teams (unrecognized sec tion and content) Car Carder Relationship Specialty Start Date End Date Generic Provider, [place] [address] PCP - General Landscape Architecture Professor 09/27/24 Car Carder Relationship Specialty Start Date End Date Generic Provider, No [place] [address] PCP - General Landscape Architecture Professor 09/27/24 Car Carder Relationship Specialty Start Date End Date Generic Provider, No [place] [address] PCP - General Landscape Architecture Professor 09/27/24 Team Status: Active Member Role Status Dates Dr. Lan Simmons MD Primary Care Provider Active Team Status: Inactive Member Role Status Dates PHIL Robles Attending Provider Active Start: January 11, 2025 End: January 11, 2025 Team Status: Active Member Role Status Dates Dr. Lan Simmons MD Primary Care Provider Active Start: January 11, 2025 PHIL Robles Attending Provider Active Start: January 11, 2025 PHIL Robles Referring Provider Active Start: January 11, 2025 Team Status: Inactive Member Role Status Dates Dr. Lan Simmons MD Primary Care Provider Active Start: January 11, 2025 End: January 11, 2025 Tony Mendoza MD Emergency Provider Active Star t: January 11, 2025 End: January 11, 2025 Team Status: Active Member Role Status Dates Dr. Lan Simmons MD Primary Care Provider Active Start: January 12, 2025 Tony Mendoza MD Emergency Provider Active Star t: January 12, 2025 Dr. Yoanna Salazar DO Attending Provider Activ e Start: January 12, 2025 Dr. Yoanna Salazar DO Other Provider Active Start: January 12, 2025 Team Status: Active Member Role Status Dates Dr. Lan Simmons MD Primary Care Provider Active Start: January 12, 2025 Tony Mendoza MD Emergency Provider Active Star t: January 12, 2025 Dr. Yoanna Salazar DO Other Provider Active Start: January 12, 2025 Dr. Ruben Galdamez DO Attending Provider Active Start: January 12, 2025 Team Status: Active Member Role Status Dates Dr. Lan Simmons MD Primary Care Provider Active Start: January 13, 2025 Tony Mendoza MD Emergency Provider Active Star t: January 13, 2025 Dr. Yoanna aSlazar , DO Attending Provider Activ e Start: January 13, 2025 Dr. Yoanna Salazar DO Other Provider Active Start: January 13, 2025 Team Status: Inactive Member Role Status Dates Dr. Lan Simmons MD Primary Care Provider Active Start: January 14, 2025 End: January 14, 2025 Tony Mendoza MD Emergency Provider Active Star t: January 14, 2025 End: January 14, 2025 Dr. Yoanna Salazar DO Admit Provider Active Start: January 14, 2025 End: January 14, 2025 Dr. Yoanna Salazar DO Attending Provider Activ e Start: January 14, 2025 End: January 14, 2025 Team Status: Active Member Role Status Dates Dr. Lan Simmons MD Primary Care Provider Active Start: January 14, 2025 Tony Mendoza MD Emergency Provider Active Star t: January 14, 2025 Dr. Yoanna Salazar DO Attending Provider Activ e Start: January 14, 2025 Dr. Yoanna Salazar DO Other Provider Active Start: January 14, 2025 Team Status: Inactive Member Role Status Dates Dr. Lan Simmons MD Primary Care Provider Active Start: January 11, 2025 End: January 11, 2025 PHIL Robles Attending Provider Active Start: January 11, 2025 End: January 11, 2025 PHIL Robles Referring Provider Active Start: January 11, 2025 End: January 11, 2025 Team Status: Active Member Role Status Dates Dr. Lan Simmons MD Primary Care Provider Active Start: January 12, 2025 Tony Mendoza MD Emergency Provider Active Star t: January 12, 2025 Dr. Yoanna Salazar DO Referring Provider Activ e Start: January 12, 2025 Dr. Yoanna Salazar DO Other Provider Active Start: January 12, 2025 Dr. Ruben Galdamez , Attending Provider Active Start: January 12, 2025 Team Status: Active Member Role Status Dates Dr. Lan Simmons MD Primary Care Provider Active Start: January 31, 2025 Yoanna Tejeda INDUSTRIAL METHODS CONSULTANT-C Attending Provider Active Start: January 31, 2025 Yoanna Tejeda INDUSTRIAL METHODS CONSULTANT-C Referring Provider Active Start: January 31, 2025 Team Status: Inactive Member Role Status Dates Dr. Lan Simmons MD Primary Care Provider Active Start: January 31, 2025 End: January 31, 2025 Dr. Lan Simmons MD Referring Provider Active Start: January 31, 2025 End: January 31, 2025 Yoanna Tejeda INDUSTRIAL METHODS CONSULTANT-C Attending Provider Active Start: January 31, 2025 End: January 31, 2025 Team Status: Inactive Member Role Status Dates Dr. Lan Simmons MD Primary Care Provider Active Start: January 31, 2025 End: January 31, 2025 Yoanna Tejeda INDUSTRIAL METHODS CONSULTANT-C Attending Provider Active Start: January 31, 2025 End: January 31, 2025 Yoanna Tejeda INDUSTRIAL METHODS CONSULTANT-C Referring Provider Active Start: January 31, 2025 End: January 31, 2025 Team Status: Active Member Role Status Dates Dr. Lan Simmons MD Primary Care Provider Active Start: February 04, 2025 Yoanna Tejeda INDUSTRIAL METHODS CONSULTANT-C Attending Provider Active Start: February 04, 2025 Yoanna Tejeda INDUSTRIAL METHODS CONSULTANT-C Referring Provider Active Start: February 04, 2025 Team Status: Inactive Member Role Status Dates Dr. Lan Simmons MD Primary Care Provider Active Start: February 04, 2025 End: February 04, 2025 Yoanna Tejeda INDUSTRIAL METHODS CONSULTANT-C Attending Provider Active Start: February 04, 2025 End: February 04, 2025 Yoanna Tejeda INDUSTRIAL METHODS CONSULTANT-C Referring Provider Active Start: February 04, 2025 End: February 04, 2025 Team Status: Active Member Role Status Dates Dr. Lan Simmons MD Primary Care Provider Active Start: February 18, 2025 Yoanna Tejeda INDUSTRIAL METHODS CONSULTANT-C Attending Provider Active Start: February 18, 2025 Yoanna Tejeda INDUSTRIAL METHODS CONSULTANT-C Referring Provider Active Start: February 18, 2025 Team Status: Inactive Member Role Status Dates Dr. Lan Simmons MD Primary Care Provider Active Start: February 18, 2025 End: February 18, 2025 Dr. Lan Simmons MD Referring Provider Active Start: February 18, 2025 End: February 18, 2025 PHIL Robles Attending Provider Active Start: February 18, 2025 End: February 18, 2025 Team Status: Inactive Member Role Status Dates Dr. Lan Simmons MD Primary Care Provider Active Start: February 18, 2025 End: February 18, 2025 PHIL Robles Attending Provider Active Start: February 18, 2025 End: February 18, 2025 PHIL Robles Referring Provider Active Start: February 18, 2025 End: February 18, 2025 Team Status: Active Member Role Status Dates Dr. Lan Simmons MD Primary Care Provider Active Start: March 04, 2025 PHIL Robles Attending Provider Active Start: March 04, 2025 PHIL Robles Referring Provider Active Start: March 04, 2025 Team Status: Inactive Member Role Status Dates Dr. Lan Simmons MD Primary Care Provider Active Start: March 04, 2025 End: March 04, 2025 Dr. Lan Simmons MD Referring Provider Active Start: March 04, 2025 End: March 04, 2025 PHIL Robles Attending Provider Active Start: March 04, 2025 End: March 04, 2025 Goals (unrecognized section and content) Goals may be documented in a n alternate sectionGoals may be documented in an alternate sectionGoals may be documented in an alternate sectionGoals may be documented in an alternate sectionGoals may be documented in an alternate sectionGoals may be documented in an alternate section No data available for this sectionGoals may be documented in an alternate section FOR RECORDS PERTAINING TO PATIENTS WHO ARE OR HAVE BEEN ENROLLED IN A CHEMICAL DEPENDENCY/SUBSTANCEABUSE PROGRAM, SOME INFORMATION MAY BE OMITTED. This clinical summary was aggregated from multiple sources. Caution should be exercised in using it in the provision of clinical care. This summary normalizes information from multiple sources, and as a consequence, information in this document may materially change the coding, format and clinical context of patient data. In addition, data may be omitted in some cases. CLINICAL DECISIONS SHOULD BE BASED ON THE PRIMARY CLINICAL RECORDS. [facility] provides no warranty or guarantee of the accuracy or completeness of information in this document.
[2025-03-05 15:09] LABS: Iron 135 ug/dL (50-170); Iron Binding Capacity,Unsat 135 ug/dL (228-428)
[2025-03-05 15:51] LABS: AST(SGOT) 12 U/L (<=31); Alanine Aminotransfer ALT/SGPT 16 U/L (<=34); Albumin, Serum 3.6 g/dL (3.5-5.0); Alkaline Phosphatase 77 U/L (35-104); Anion Gap 11 (5-15); BUN 18 mg/dL (4-19); BUN/Creat Ratio 32.7 RATIO (10-20); Bilirubin, Direct < 0.08 mg/dL (0.00-0.30); Carbon Dioxide 25.4 mmol/L (21.0-32.0); Chloride 104 mmol/L (98-108); Creatinine, Serum 0.55 mg/dL (0.70-1.20); EST Glomerular Filtration Rate 124 (>60); Globulin 3.4 g/dL (2.2-4.2); Glucose 131 mg/dL (70-99); Sodium Level 140 mmol/L (133-145); Total Bilirubin < 0.15 mg/dL (0.00-1.30); Vitamin B12 486 pg/mL (180-914)
== END | disposition home or self-care (01) ==
LOC: LAB 13:52
PROVIDERS: PCP Family Medicine; Referring Provider Nurse Practitioner Acute Care; Visit Provider Nurse Practitioner Acute Care
DX: Z34.90 Encounter for supervision of normal pregnancy, unspecified, unspecified trimester (principal); K50.90 Crohn's disease, unspecified, without complications; D84.9 Immunodeficiency, unspecified; D64.9 Anemia, unspecified
CPT/HCPCS: 36415; 80048; 80076; 82607; 83540; 83550; 84630; 85025; 86140

== ENCOUNTER → 2025-04-17 | Outpatient (CLI) | payer OTHER, SELFPAY ==
[2025-04-17 09:34] LABS: Hematocrit 32.6 % (37-47); Hemoglobin 9.6 g/dL (12.0-15.0); Immature Granulocytes Count 0.040 X10^3/uL (0.0-0.0); Mean Corp Hgb Conc 29.4 g/dL (32-36); Mean Corpuscular Volume 90.3 fL (81-99); Mean Platelet Vol. 8.6 fl (6.2-12.0); NRBC Flagged by Analyzer 0 % (0-5); Platelet Count 332 K/mm3 (150-450); RBC Distribution Width CV 13.6 % (11.6-14.6); RBC Distribution Width SD 45.3 fl (35.1-43.9); Red Blood Count 3.61 M/mm3 (4.2-5.4); White Blood Count 8.3 K/mm3 (4.4-11.0)
== END | disposition home or self-care (01) ==
LOC: LAB 08:47
PROVIDERS: PCP Family Medicine; Referring Provider Nurse Practitioner Acute Care; Visit Provider Nurse Practitioner Acute Care
DX: K50.90 Crohn's disease, unspecified, without complications (principal)
CPT/HCPCS: 36415; 85025

== ENCOUNTER → 2025-07-08 | Outpatient (CLI) | payer OTHER, SELFPAY ==
[2025-07-08 17:08] LABS: Hematocrit 34.6 % (37-47); Hemoglobin 10.5 g/dL (12.0-15.0); Immature Granulocytes Count 0.030 X10^3/uL (0.0-0.0); Mean Corp Hgb Conc 30.3 g/dL (32-36); Mean Corpuscular Volume 79.0 fL (81-99); Mean Platelet Vol. 8.5 fl (6.2-12.0); NRBC Flagged by Analyzer 0 % (0-5); Platelet Count 375 K/mm3 (150-450); RBC Distribution Width CV 14.2 % (11.6-14.6); RBC Distribution Width SD 41.1 fl (35.1-43.9); Red Blood Count 4.38 M/mm3 (4.2-5.4); White Blood Count 11.3 K/mm3 (4.4-11.0)
[2025-07-08 17:53] LABS: CRP 35.20 mg/L (0.0-3.0)
[2025-07-08 18:21] LABS: AST(SGOT) 14 U/L (<=31); Alanine Aminotransfer ALT/SGPT < 5 U/L (<=34); Albumin, Serum 3.8 g/dL (3.5-5.0); Alkaline Phosphatase 88 U/L (35-104); Anion Gap 8 (5-15); BUN 9 mg/dL (4-19); BUN/Creat Ratio 15.9 RATIO (10-20); Calcium,Total 9.4 mg/dL (7.6-11.0); Carbon Dioxide 27.9 mmol/L (21.0-32.0); Chloride 101 mmol/L (98-108); Globulin 4.5 g/dL (2.2-4.2); Glucose 95 mg/dL (70-99); Potassium 4.1 mmol/L (3.3-5.1)
== END | disposition home or self-care (01) ==
LOC: LAB 16:15
PROVIDERS: PCP Family Medicine; Referring Provider Nurse Practitioner Acute Care; Visit Provider Nurse Practitioner Acute Care
DX: D84.9 Immunodeficiency, unspecified (principal); K50.90 Crohn's disease, unspecified, without complications
CPT/HCPCS: 36415; 80053; 85025; 86140

== ENCOUNTER 2025-07-24 09:34 | Outpatient (CLI) | payer OTHER, SELFPAY ==
[2025-07-24 09:44] VITALS: BP 122/76; PULSE 82; RESP 16; TEMP 35.6; O2SAT 98; BMI 32.1
[2025-07-24] MEDS: 0.9% NaCl Peripheral Flush Adult IV (10:44)
[2025-07-24] MEDS: NORMAL SALINE 0.9% IV (10:45)
[2025-07-24] MEDS: INFLIXIMAB DYYB IV (10:45)
[2025-07-24 12:55] VITALS: BP 128/67; PULSE 89; RESP 16; TEMP 35.9; O2SAT 100
== END 2025-07-24 23:59 | disposition home or self-care (01) ==
LOC: MEDOUTP 09:35
PROVIDERS: PCP Family Medicine; Referring Provider Nurse Practitioner Acute Care; Visit Provider Nurse Practitioner Acute Care
DX: K50.90 Crohn's disease, unspecified, without complications (principal)
CPT/HCPCS: 96413; 96415; A4216; Q5103

== ENCOUNTER 2025-08-07 09:45 | Outpatient (CLI) | payer OTHER, SELFPAY ==
[2025-08-07 09:54] VITALS: BP 127/73; PULSE 85; RESP 16; TEMP 35.9; O2SAT 98; BMI 32.4
[2025-08-07] MEDS: 0.9% NaCl Peripheral Flush Adult IV (10:07)
[2025-08-07] MEDS: 0.9% NaCl IVPB Med Flush (100mL) 15 ML IV (10:08)
[2025-08-07] MEDS: INFLIXIMAB DYYB IV (10:48)
[2025-08-07] MEDS: NORMAL SALINE 0.9% IV (10:48)
== END 2025-08-07 23:59 | disposition home or self-care (01) ==
LOC: MEDOUTP 09:45
PROVIDERS: PCP Family Medicine; Referring Provider Nurse Practitioner Acute Care; Visit Provider Nurse Practitioner Acute Care
DX: K50.90 Crohn's disease, unspecified, without complications (principal)
CPT/HCPCS: 96413; 96415; A4216; Q5103

== ENCOUNTER 2025-09-04 10:05 | Outpatient (CLI) | payer OTHER, SELFPAY ==
[2025-09-04 10:12] VITALS: BP 136/80; PULSE 83; RESP 16; TEMP 35.8; O2SAT 100; BMI 31.8
[2025-09-04] MEDS: NORMAL SALINE 0.9% IV (10:49)
[2025-09-04] MEDS: INFLIXIMAB DYYB IV (10:49)
[2025-09-04 13:19] VITALS: BP 129/74; PULSE 96; RESP 14; O2SAT 98
== END 2025-09-04 23:59 | disposition home or self-care (01) ==
LOC: MEDOUTP 10:05
PROVIDERS: PCP Family Medicine; Referring Provider Nurse Practitioner Acute Care; Visit Provider Nurse Practitioner Acute Care
DX: K50.90 Crohn's disease, unspecified, without complications (principal)
CPT/HCPCS: 96413; 96415; A4216; Q5103